=== PATIENT | female | born 1970 | race Caucasian/White ===

== ENCOUNTER → 2020-05-28 10:14 | Outpatient (CLI) | payer OTHER, SELFPAY ==
--- NOTE | ~2020-05-28 | MM_ITS ---
EXAMINATION: MM screening pablo BI w edgardo HISTORY: Screening TECHNIQUE: Craniocaudal and mediolateral oblique 3-D tomosynthesis images were obtained and synthetic 2-D images were generated. CAD analysis was submitted and interpreted. COMPARISON: No prior mammogram is available for comparison at this institution. BREAST PARENCHYMAL COMPOSITION: The breasts are heterogenously dense, which may obscure small masses FINDINGS: There is no evidence of suspicious mass, calcification, or architectural distortion to sugg est malignancy in either breast. There has been no suspicious interval change. IMPRESSION: 1. No mammographic evidence of malignancy. 2. Recommend routine screening mammography in one year. BI-RADS Category 1: Negative Reviewed, dictated and finalized at location A.
== END ==
PROVIDERS: Visit Provider Obstetrics & Gynecology
DX: Z12.31 Encounter for screening mammogram for malignant neoplasm of breast (principal)
CPT/HCPCS: 77063; 77067

== ENCOUNTER → 2021-06-03 15:17 | Outpatient (CLI) | payer OTHER, SELFPAY ==
--- NOTE | ~2021-06-03 | MR_ITS ---
EXAMINATION: MR lumbar spine wo con DATE: 06/03/2021 16:05 INDICATION: Low back pain. Bilateral leg tingling and numbness. TECHNIQUE: Magnetic resonance imaging (MRI) of the lumbar spine was performed without intravenous con trast. Sequences included sagittal T2-weighted FSE, sagittal T2-weighted FS FSE, sagittal T1-weighted FSE, and axial T2-weighted FSE. COMPARISON: Thoracic spine MRI 05/05/2017 FINDINGS: There is 11 degrees levoscoliosis of lumbar spine. S1 is a transitional segment. Vertebral body heights are normal. There is mildly decreased disc height at L3-L4 and moderately decreased disc height at L4-L5 and L5-S1. The distal spinal cord signal intensity is normal. The conus medullaris i s at L2. The following disc levels are specifically discussed: L1-L2: The disc does not extend beyond the endplate margin. There is mild bilateral facet joint osteo arthritis. There is no neural foraminal stenosis. There is no central canal stenosis. L2-L3: The disc does not extend beyond the endplate margin. There is mild bilateral facet joint osteo arthritis. There is no neural foraminal stenosis. There is no central canal stenosis. L3-L4: The disc is bulging. There is mild bilateral facet joint osteoarthritis. There is mild right n eural foraminal stenosis. There is mild central canal stenosis. L4-L5: The disc is bulging with superimposed central extrusion. There is mild right facet joint osteo arthritis. There is mild bilateral neural foraminal stenosis. There is mild central canal stenosis. L5-S1: The disc is bulging and has an annular fissure. There is mild right and moderate left facet susana int osteoarthritis. There is mild right neural foraminal stenosis. There is mild central canal stenos is. IMPRESSION: 1. Moderate lumbar spondylosis. Reviewed, dictated and finalized at location A.
== END ==
PROVIDERS: PCP Family Medicine; Visit Provider Chiropractor
DX: M47.896 Other spondylosis, lumbar region (principal)
CPT/HCPCS: 72148

== ENCOUNTER → 2021-06-06 15:14 | Outpatient (CLI) | payer OTHER, SELFPAY ==
--- NOTE | ~2021-06-06 | MM_ITS ---
EXAMINATION: MM screening pablo BI w edgardo HISTORY: Screening TECHNIQUE: Craniocaudal and mediolateral oblique 3-D tomosynthesis images were obtained and synthetic 2-D images were generated. CAD analysis was submitted and interpreted. COMPARISON: Comparison to multiple prior studies sequentially, with oldest reviewed study dated 06/2012. BREAST PARENCHYMAL COMPOSITION: The breasts are heterogeneously dense, which may obscure small masses .. FINDINGS: There are developing asymmetries centrally in the left breast on CC view the right breast i s stable without evidence for malignancy. IMPRESSION: 1. Focal asymmetries central aspect of the left breast on CC view. 2. Additional mammographic views and possible breast ultrasound are recommended. BI-RADS Category 0: Incomplete: Needs additional imaging evaluation. Reviewed, dictated and finalized at location A. IMPRESSION: 1. Focal asymmetries central aspect of the left breast on CC view. 2. Additional mammographic views and possible breast ultrasound are recommended . BI-RADS Category 0: Incomplete: Needs additional imaging evaluation.
== END ==
PROVIDERS: Visit Provider Physician Assistant
DX: Z12.31 Encounter for screening mammogram for malignant neoplasm of breast (principal); R92.8 Other abnormal and inconclusive findings on diagnostic imaging of breast
CPT/HCPCS: 77063; 77067

== ENCOUNTER → 2021-07-07 08:18 | Outpatient (CLI) | payer OTHER, SELFPAY ==
--- NOTE | ~2021-07-07 | MMUS_ITS ---
EXAMINATION: MM diagnostic pablo LT w edgardo, US breast LT complete HISTORY: Follow-up left breast asymmetries TECHNIQUE: Additional 3-D tomosynthesis images of the left breast were performed and synthetic 2-D im ages were generated. CAD analysis was submitted and interpreted. High resolution left breast ultrasou nd was performed. COMPARISON: Comparison to multiple prior studies sequentially, with oldest reviewed study dated 06/2012. BREAST PARENCHYMAL COMPOSITION: The breasts are heterogenously dense, which may obscure small masses. FINDINGS: MAMMOGRAPHIC FINDINGS: There are no discrete masses, calcifications or architectural distortion in the left breast to sugges t malignancy. ULTRASOUND: Complete left breast ultrasound: Near the areola there is a 5 mm cyst. Otherwise, no discrete solid o r cystic masses are seen. IMPRESSION: 1. No evidence for malignancy in the left breast. 2. Routine yearly screening mammogram and regular clinical breast examination are recommended. BI-RADS Category 2: Benign finding(s). Reviewed, dictated and finalized at location A. IMPRESSION: 1. No evidence for malignancy in the left breast. 2. Routine yearly screening mammogram and regular clinical breast examination a re recommended. BI-RADS Category 2: Benign finding(s).
== END ==
PROVIDERS: Visit Provider Physician Assistant
DX: R92.8 Other abnormal and inconclusive findings on diagnostic imaging of breast (principal)
CPT/HCPCS: 76641; 77061; 77065; G0279

== ENCOUNTER → 2021-07-15 15:28 | Outpatient (CLI) | payer OTHER, SELFPAY ==
--- NOTE | ~2021-07-15 | XR_ITS ---
EXAMINATION: XR foot LT standing 2V, XR foot RT standing 2V DATE: 07/15/2021 16:03 INDICATION: Pain, numbness and tingling at the bilateral feet. TECHNIQUE: 1. Standing dorsal plantar and lateral views of the left foot were obtained. 2. Standing dorsal plantar and lateral views of the right foot were obtained. COMPARISON: None. FINDINGS: Normal alignment at the bilateral feet. No fractures. Moderate osteoarthritis at the left first metat arsophalangeal joint. Minimal to mild osteoarthritis at the right first metatarsophalangeal joint and a few bilateral tarsometatarsal and interphalangeal joints. No cortical erosions or periosteal react ion. Small bilateral plantar calcaneal spurs. Soft tissues are unremarkable. IMPRESSION: 1. 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 Reviewed, dictated and finalized at location A. IMPRESSION: 1. 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
== END ==
PROVIDERS: PCP Family Medicine; Visit Provider Family Medicine
DX: R20.0 Anesthesia of skin (principal); M19.072 Primary osteoarthritis, left ankle and foot; M19.071 Primary osteoarthritis, right ankle and foot
CPT/HCPCS: 73620

== ENCOUNTER 2021-07-31 08:55 | Outpatient (CLI) | payer OTHER, SELFPAY ==
--- NOTE | 2021-07-31 12:00 | NEURO_ITS ---
Impression: # Complains of numbness of lower extremities. # Normal nerve conduction study. # No Tarsal Tunnel Syndrome. # Normal needle/EMG exam. Nerve Conduction Studies Anti Sensory Summary Table Stim Site NR Peak (ms) P-T Amp (?V) Site1 Site2 Delta-P (ms) Dist (cm) Rainer (m/s) Left Sup Fibular Anti Sensory (Ant Lat Mall) 14 cm 3.7 34.4 14 cm Ant Lat Mall 3.7 16.0 43 Right Sup Fibular Anti Sensory (Ant Lat Mall) 14 cm 3.4 31.8 14 cm Ant Lat Mall 3.4 16.0 47 Left Sural Anti Sensory (Lat Mall) Calf 3.8 28.9 Calf Lat Mall 3.8 16.0 42 Right Sural Anti Sensory (Lat Mall) Calf 4.2 8.2 Calf Lat Mall 4.2 16.0 38 Motor Summary Table Stim Site NR Onset (ms) O-P Amp (mV) Site1 Site2 Delta-0 (ms) Dist (cm) Rainer (m/s) Left Lateral Planter Motor 4.8 Right Lateral Planter Motor 5.2 Left Peroneal Motor (Vastus Med) Ankle 5.5 1.0 Popit Ankle 8.6 39.0 45 Popit 14.1 0.8 Right Peroneal Motor (Vastus Med) Ankle 5.1 4.3 Popit Ankle 8.2 38.0 46 Popit 13.3 3.9 Left Tibial Motor (Abd Lozoya Brev) Ankle 5.2 2.3 Knee Ankle 8.6 42.0 49 Knee 13.8 2.2 Right Tibial Motor (Abd Lozoya Brev) Ankle 5.2 9.5 Knee Ankle 9.5 41.0 43 Knee 14.7 8.2 F Wave Studies NR F-Lat (ms) L-R F-Lat (ms) Left Peroneal (Mrkrs) (EDB) 49.34 0.12 Right Peroneal (Mrkrs) (EDB) 49.22 0.12 Left Tibial (Mrkrs) (Abd Hallucis) 52.16 1.01 Right Tibial (Mrkrs) (Abd Hallucis) 53.17 1.01 EMG Side Muscle Nerve Root Ins Act Fibs Amp Dur Recrt Comment Right AntTibialis Dp Br Fibular L4-5 Nml Nml Nml Nml Nml Right Gastroc Tibial S1-2 Nml Nml Nml Nml Nml Right Fibularis Long Sup Br Fibular L5-S1 Nml Nml Nml Nml Nml Right Flex Dig Long Tibial L5-S2 Nml Nml Nml Nml Nml Right Ext Dig Brev Dp Br Fibular L5, S1 Nml Nml Nml Nml Nml Left AntTibialis Dp Br Fibular L4-5 Nml Nml Nml Nml Nml Left Gastroc Tibial S1-2 Nml Nml Nml Nml Nml Left Fibularis Long Sup Br Fibular L5-S1 Nml Nml Nml Nml Nml Left Flex Dig Long Tibial L5-S2 Nml Nml Nml Nml Nml Left Ext Dig Brev Dp Br Fibular L5, S1 Nml Nml Nml Nml Nml Left AbdHallucis MedPlantar S1-2 Nml Nml Nml Nml Nml Right AbdHallucis MedPlantar S1-2 Nml Nml Nml Nml Nml MTDD
== END 2021-07-31 08:56 | disposition home or self-care (01) ==
PROVIDERS: PCP Family Medicine; Visit Provider Family Medicine
DX: M43.06 Spondylolysis, lumbar region (principal); M54.16 Radiculopathy, lumbar region
CPT/HCPCS: 95886; 95910

== ENCOUNTER → 2022-01-20 13:01 | Outpatient (CLI) | payer OTHER, SELFPAY ==
--- NOTE | ~2022-01-20 | XR_ITS ---
XR cervical spine 4-5V DATE: 01/20/2022 13:57 INDICATION: Cervical spine stenosis TECHNIQUE: AP, open-mouth, lateral views. Flexion and extension lateral views. COMPARISON: 05/05/2017 MR cervical spine 01/04/2017 cervical spine FINDINGS: There is straightening of the cervical spine and reversal of cervical curvature.. There is approximately 1.7 mm anterolisthesis at C3-4 in neutral and flexion, newly reduced in extens ion. Mild degenerative disc disease at C3-4. Moderately severe degenerative disc disease at C4-5 and C6-7. Severe degenerative disc disease at C5-6.. There is degenerative change at the apophyseal joints of the cervical spine. Uncovertebral joint spur ring is noted in the mid and lower cervical spine, particularly at C5-6 and C6-7. C1 and C2 are normally aligned and the odontoid process is intact. No fracture or dislocation or lock ed facet. IMPRESSION: Chronic approximately 1.7 mm anterolisthesis at C3-4 Chronic reversal cervical curvature Multilevel degenerative disc disease, increased in severity since 01/04/2017 Degenerative change at the apophyseal joints throughout the cervical spine and the mid and lower cerv ical uncovertebral joints Reviewed, dictated and finalized at location A. IMPRESSION: Chronic approximately 1.7 mm anterolisthesis at C3-4 Chronic reversal cervical curvature Multilevel degenerative disc disease, increased in severity since 01/04/2017 Degenerative change at the apophyseal joints throughout the cervical spine and the mid and lower cervical uncovertebral joints
== END ==
PROVIDERS: PCP Physician Assistant
DX: M48.02 Spinal stenosis, cervical region (principal); M50.30 Other cervical disc degeneration, unspecified cervical region
CPT/HCPCS: 72050

== ENCOUNTER → 2022-12-04 15:25 | Outpatient (CLI) | payer OTHER, SELFPAY ==
--- NOTE | ~2022-12-04 | MM_ITS ---
EXAMINATION: MM screening pablo BI w edgardo HISTORY: Screening mammogram TECHNIQUE: Craniocaudal and mediolateral oblique 3-D tomosynthesis images were obtained and synthetic 2-D images were generated. Bilateral rotated lateral CC views. CAD analysis was submitted and interp reted. COMPARISON: 07/07/2021 diagnostic left mammogram and complete left breast ultrasound examination 06/06/2021, 05/2020 bilateral screening mammogram examinations BREAST PARENCHYMAL COMPOSITION: The breasts are extremely dense, which lowers the sensitivity of mamm ography. FINDINGS: There is no evidence of suspicious mass, calcification, or architectural distortion to sugg est malignancy in either breast. There has been no suspicious interval change. IMPRESSION: 1. No mammographic evidence of malignancy. 2. Recommend routine screening mammography in one year. BI-RADS Category 1: Negative Reviewed, dictated and finalized at location A. S
== END ==
PROVIDERS: PCP Physician Assistant; Visit Provider Physician Assistant
DX: Z12.31 Encounter for screening mammogram for malignant neoplasm of breast (principal)
CPT/HCPCS: 77063; 77067

== ENCOUNTER → 2023-01-04 11:25 | Outpatient (CLI) | payer OTHER, SELFPAY ==
--- NOTE | ~2023-01-04 | XR_ITS ---
XR chest 2V DATE: 01/04/2023 12:08 INDICATION: Cough, new onset wheezing. Nonsmoker. TECHNIQUE: PA and lateral views COMPARISON: 10/12/2019 PA and lateral chest FINDINGS: Normal heart size. No hilar or mediastinal enlargement. No pulmonary infiltrate or consolid ation, pleural effusion or pulmonary vascular congestion or pneumothorax. IMPRESSION: No active cardiopulmonary disease Reviewed, dictated and finalized at location A.
== END ==
PROVIDERS: PCP Physician Assistant
DX: R05.9 Cough, unspecified (principal)
CPT/HCPCS: 71046

== ENCOUNTER → 2023-12-06 15:41 | Outpatient (CLI) | payer OTHER, SELFPAY ==
--- NOTE | ~2023-12-06 | MM_ITS ---
EXAMINATION: MM screening [facility] BI w edgardo HISTORY: Screening mammogram TECHNIQUE: Craniocaudal and mediolateral oblique 3-D tomosynthesis images were obtained and synthetic 2-D images were generated. CAD analysis was submitted and interpreted. COMPARISON: 12/04/2022, 07/07/2021, 06/06/2021, 05/28/2020 BREAST PARENCHYMAL COMPOSITION: The breasts are extremely dense, which lowers the sensitivity of mamm ography. FINDINGS: No suspicious mass, calcification, or architectural distortion are identified in either laxmi ast to suggest malignancy. There has been no suspicious interval change. IMPRESSION: 1. No mammographic evidence of malignancy. 2. Recommend routine screening mammography in one year. BI-RADS Category 1: Negative Reviewed, dictated and finalized at location A. MANAGEMENT DIRECTOR
== END ==
PROVIDERS: PCP Physician Assistant; Visit Provider Physician Assistant
DX: Z12.31 Encounter for screening mammogram for malignant neoplasm of breast (principal)
CPT/HCPCS: 77063; 77067

== ENCOUNTER 2024-02-28 07:01 | Outpatient (CLI) | payer OTHER, SELFPAY ==
--- NOTE | ~2024-02-28 | MR_ITS ---
EXAMINATION: MR chest wo con DATE: 02/28/2024 07:48 INDICATION: Sternal pain. Chronic costochondritis. TECHNIQUE: Magnetic resonance imaging (MRI) of the chest was performed without intravenous contrast. COMPARISON: Chest 2 views 01/04/2023 FINDINGS: Bone alignment is normal. No fracture. The sternum is normal. The sternoclavicular joints a re normal. There is no inflammation in the area of the costochondral cartilage. IMPRESSION: 1. No etiology for the patient's symptoms. Reviewed, dictated and finalized at location A.
== END 2024-02-28 07:02 ==
LOC: MICIMG 07:02
PROVIDERS: PCP Chiropractor; Visit Provider Chiropractor
DX: M94.0 Chondrocostal junction syndrome [Tietze] (principal)
CPT/HCPCS: 71550

== ENCOUNTER 2024-07-04 13:46 | Outpatient (CLI) | payer OTHER, SELFPAY ==
--- NOTE | ~2024-07-04 | MR_ITS ---
EXAMINATION: MR foot LT wo con DATE: 07/04/2024 14:44 INDICATION: Left first metatarsal sesamoiditis with chronic plantar foot pain at the base of the grea t toe TECHNIQUE: Magnetic resonance imaging (MRI) of the left fore/mid foot was performed without intraveno us contrast. Sequences included sagittal T1-weighted FSE, sagittal fluid sensitive FSE STIR, coronal PD-weighted FS FSE, coronal T1-weighted FSE, axial PD-weighted FS FSE, and axial PD-weighted FSE. COMPARISON: Radiograph dated 07/15/2021 FINDINGS: Bone alignment is normal. No fracture or pathologic marrow replacing process. There is severe osteoar thritis at the first metatarsophalangeal joint with subarticular edema-like signal changes about the head of the first metatarsal and base of the first proximal phalanx. Mild osteoarthritis between the head of the first metatarsal and the underlying sesamoids with no abnormal marrow signal in the sesam oid bones to suggest sesamoiditis. There is additional mild osteoarthritis at several of the tarsal m etatarsal comment interphalangeal and remaining metatarsophalangeal joints. Physiologic amount fluid in the joint space. The visualized portions of the flexor and extensor tendons and intrinsic musculat ure of the foot are normal. Lisfranc ligament complex as well as the collateral ligament complex at t he metatarsophalangeal and interphalangeal joints are normal.. IMPRESSION: 1. Severe osteoarthritis at the left first metatarsophalangeal joint. Reviewed, dictated and finalized at location B.
== END 2024-07-04 13:47 | disposition home or self-care (01) ==
LOC: MICIMG 13:47
PROVIDERS: PCP Family Medicine; Visit Provider Podiatrist Foot & Ankle Surgery
DX: M19.072 Primary osteoarthritis, left ankle and foot (principal)
CPT/HCPCS: 73718

== ENCOUNTER 2024-10-09 15:20 | Emergency (ER) | payer OTHER, SELFPAY ==
[2024-10-09] VITALS (8 sets, daily range): BP systolic 85–148; BP diastolic 57–79; PULSE 116; RESP 16; TEMP 36.8; O2SAT 99–100
--- NOTE | ~2024-10-09 | XR_ITS ---
EXAMINATION: XR chest 2V DATE: 10/09/2024 16:57 INDICATION: Chest pain. TECHNIQUE: Frontal and lateral views of the chest were obtained. COMPARISON: Chest 2 views 01/04/2023 FINDINGS: There is mild scarring at the lung apices. No pleural effusion or pneumothorax. The heart s ize is normal. IMPRESSION: 1. Stable mild scarring at the lung apices. Reviewed, dictated and finalized at location A. PLATFORMS
--- NOTE | ~2024-10-09 | CT_ITS ---
EXAMINATION: CT abdomen pelvis w con DATE: 10/09/2024 18:23 INDICATION: Ascites. TECHNIQUE: Computed tomography (CT) of the abdomen and pelvis was performed with 100 mL Omnipaque 350 intravenous contrast. Automated exposure control and iterative reconstruction technique were employe d. The dose-length product was 474.69 mGy-cm. COMPARISON: None. FINDINGS: The visualized portions of the lung bases demonstrate mild atelectasis. No pleural effusion . The heart size is normal. No pericardial effusion. There is diffuse hepatic steatosis. The gallblad kirt is absent. The spleen, pancreas, adrenal glands, and right kidney are normal. There is a 4 mm cys t in left kidney. There are no dilated loops of bowel. The appendix is normal. There are no pathologi lyn enlarged lymph nodes. There is no free intraperitoneal fluid. There is moderate lumbar spondylo sis. IMPRESSION: 1. No ascites. 2. Diffuse hepatic steatosis. Reviewed, dictated and finalized at location A. VISITING
--- NOTE | 2024-10-09 15:32 | ECG_ITS ---
Test Date: 2024-10-09 15:46:14 Measurements Intervals [place] Rate: 110 P: 37 OK: 123 QRS: -44 QRSD: 92 T: 50 QT: 334 QTc: 452 Interpretive Statements SINUS TACHYCARDIA MARKED LEFT AXIS DEVIATION [QRS AXIS < -30] No previous ECG available for comparison Electronically Signed On 10-09-2024 21:22:44 SUPERVISOR PIGMENT MAKING by Rob Ghosh M.D.
[2024-10-09 16:00] LABS: Basophils Percent Auto 0.5 % (0.2-1.2); Eosinophils Absolute Auto 0.1 K/mm3 (0-0.3); Eosinophils Percent Auto 2.1 % (0-4.4); Hematocrit 42.7 % (37.0-47.0); Hemoglobin 14.9 g/dL (12.0-15.0); Immature Granulocyte Absolute 0.02 K/mm3 (0.00-0.031); Immature Granulocyte Percent A 0.3 % (0-0.5); Lymphocytes Absolute Auto 1.99 K/mm3 (0.9-3.2); Lymphocytes Percent Auto 30.2 % (18.3-44.2); Mean Corpuscular HGB Conc 34.9 g/dl (32-36); Mean Corpuscular Hemoglobin 32.5 pg (26-34); Mean Platelet Volume 9.6 fl (7.4-10.4); Monocytes Absolute Auto 0.5 K/mm3 (0.1-0.6); Monocytes Percent Auto 7.4 % (2.6-8.5); Neutrophils Absolute Auto 3.9 K/mm3 (1.3-6.7); Neutrophils Percent Auto 59.5 % (45.5-73.1); Platelet Count Result 250 k/mm3 (150-375); Red Blood Count 4.59 M/mm3 (4.2-5.4); Red Cell Distribution Width 12.4 % (11.5-14.5); White Blood Count 6.6 K/mm3 (4.5-10.0)
[2024-10-09 16:14] LABS: Alanine Aminotransferase 112 U/L (6-35); Albumin Level 5.2 g/dL (3.5-5.1); Alkaline Phosphatase 94 U/L (38-126); Anion Gap 7 mmol/L (4-12); Aspartate Amino Transferase 71 U/L (14-36); Bilirubin,Total 0.9 mg/dL (0.2-1.3); Blood Urea Nitrogen 11 mg/dL (7-17); Carbon Dioxide 32 mmol/L (22-30); Chloride 95 mmol/L (98-107); Estimated CRCL calculation 68 ml/min; Estimated Glomerular Filt Rate > 60; Glucose 110 mg/dL (65-110); Lipase 72 U/L (23-300); Potassium 3.5 mmol/L (3.4-5.0); Sodium 134 mmol/L (137-145)
[2024-10-09 16:24] LABS: INR 0.9; Prothrombin Time 12.5 Seconds (11.1-14.7)
[2024-10-09 16:25] LABS: Partial Thromboplastin Time 27.2 Seconds (22.3-36.8); Troponin I < 0.012 ng/mL (0.000-0.034)
--- NOTE | 2024-10-09 17:14 | ED_ITS ---
HPI - General Adult General Chief complaint: Weakness Stated complaint: WEAK,ABD SWELLING,CHEST BURNING Time Seen by Provider: 10/09/24 17:05 History of Present Illness HPI narrative: Pt presents with swelling and edema to abdomen and a small amount to feet and generalized weakness. Pt is not a drinker. Pt says has been dealing with elevated liver enzymes for years and sees GI for this. Pt denies abdominal pain now. slight transaminase elevation, ct shows no ascites some hepatic steatosis Related Data Home Medications ?Medication ?Instructions ?Recorded ?Confirmed ?Last Taken ?Type fluticasone propionate 50 1 spray intranasal DAILY 07/10/21 07/10/21 Unknown History mcg/actuation nasal spray,suspension (Flonase Allergy Relief) levocetirizine 5 mg tablet (Xyzal) 5 mg PO DAILY 07/10/21 07/10/21 Unknown History montelukast 10 mg tablet 10 mg PO DAILY 07/10/21 07/10/21 Unknown History (Singulair) Allergies Allergy/AdvReac Type Severity Reaction Status Date / Time Sulfa (Sulfonamide Allergy Intermediate RASH, Verified 10/09/24 15:22 Antibiotics) LIGHT HEADED, JOINT ACHES sulfamethoxazole Allergy Intermediate RASH, Verified 10/09/24 15:22 LIGHT HEADED, JOINT ACHES amoxicillin Allergy Unknown Rash Verified 10/09/24 15:22 Penicillins Allergy Unknown Rash Verified 10/09/24 15:22 sulfamethizole Allergy Unknown Rash Verified 10/09/24 15:22 sulfanilamide Allergy Unknown Rash Verified 10/09/24 15:22 trimethoprim Allergy Unknown Rash Verified 10/09/24 15:22 Review of Systems 2 Review of Systems: All systems reviewed & are unremarkable except as noted in HPI and below PMFSH Past Medical History Medical History (Updated 10/09/24 @ 18:43 by Kojo Beltran III, DO) Numbness and tingling of both feet Numbness and tingling Other spondylosis with radiculopathy, lumbar region Gastric polyp Screen for colon cancer Essential (primary) hypertension Dyspnea on exertion Family History Family History Father Hypertension Carcinoma of colon Social History Social History Smoking status: Never smoker Alcohol intake: current Exam 2 Const: General: healthy appearing and no acute distress Nutritional Appearance: well nourished Orientation/consciousness: patient oriented x3 Limitations: no limitations Eyes: Conjunctivae: conjunctivae normal EOM: EOMs intact bilaterally Resp: Effort & Inspection: normal respiratory effort Auscultation: clear to auscultation bilaterally Cardio: Rate: regular rate Rhythm: regular rhythm GI: Inspection: distended GI Palp: Yes Soft to palpation and No Tenderness to palpation present (GI) Auscultation: normal bowel sounds Back/Spine/Pelvis: Back: no CVA tenderness Skin: General skin exam: normal color Rashes: no rashes Wounds: no wounds Neuro: General: patient oriented x3, moves all extremities, no meningeal signs, no focal motor deficits and CN's II-XI intact bilaterally Cranial nerves: Yes Nystagmus not present Speech: normal speech Extrem: General: normal to inspection and no clubbing, cyanosis or edema Psych: Mental Status: mental status grossly normal Affect: normal affect Attitude: cooperative Course Vital Signs Vital signs: Vital Signs Temperature 98.2 F 10/09/24 15:29 Pulse Rate 116 H 10/09/24 15:29 Respiratory Rate 16 10/09/24 15:29 Blood Pressure 147/67 H 10/09/24 15:29 Pulse Oximetry 100 10/09/24 15:29 Oxygen Delivery Room Air 10/09/24 15:29 Temperature 98.2 F 10/09/24 15:29 Pulse Rate 116 H 10/09/24 15:29 Respiratory Rate 16 10/09/24 15:29 Blood Pressure 147/67 H 10/09/24 15:29 Pulse Oximetry 100 10/09/24 15:29 Oxygen Delivery Room Air 10/09/24 15:29 Medical Decision Making [facility] Narrative Medical decision making narrative: Pt presents with weakness and abdominal swelling without pain. will check labs and get CT abd/pelvis. small liver transaminase elvation labs unremarkable otherwise. Vital Signs Vital Signs: Vital Signs Temperature 98.2 F 10/09/24 15:29 Pulse Rate 116 H 10/09/24 15:29 Respiratory Rate 16 10/09/24 15:29 Blood Pressure 147/67 H 10/09/24 15:29 Pulse Oximetry 100 10/09/24 15:29 Oxygen Delivery Room Air 10/09/24 15:29 Temperature 98.2 F 10/09/24 15:29 Pulse Rate 116 H 10/09/24 15:29 Respiratory Rate 16 10/09/24 15:29 Blood Pressure 147/67 H 10/09/24 15:29 Pulse Oximetry 100 10/09/24 15:29 Oxygen Delivery Room Air 10/09/24 15:29 Lab Data 10/09/24 15:51 10/09/24 15:51 Labs: Lab Results 10/09/24 Range/Units 15:51 WBC 6.6 (4.5-10.0) K/mm3 RBC 4.59 (4.2-5.4) M/mm3 Hgb 14.9 (12.0-15.0) g/dL Hct 42.7 (37.0-47.0) % MCV 93.0 (80-100) fl MCH 32.5 (26-34) pg MCHC 34.9 (32-36) g/dl RDW 12.4 (11.5-14.5) % Plt Count 250 (150-375) k/mm3 MPV 9.6 (7.4-10.4) fl Immature Gran % (Auto) 0.3 (0-0.5) % Neut % (Auto) 59.5 (45.5-73.1) % Lymph % (Auto) 30.2 (18.3-44.2) % [place] % (Auto) 7.4 (2.6-8.5) % Eos % (Auto) 2.1 (0-4.4) % Baso % (Auto) 0.5 (0.2-1.2) % Lymph # (Auto) 1.99 (0.9-3.2) K/mm3 [place] # (Auto) 0.5 (0.1-0.6) K/mm3 Eos # (Auto) 0.1 (0-0.3) K/mm3 Baso # (Auto) 0.0 (0.0-0.1) K/mm3 Abs Immat Gran (auto) 0.02 (0.00-0.031) K/mm3 Absolute Neuts (auto) 3.9 (1.3-6.7) K/mm3 Absolute Nucleated RBC 0.000 (0.0-0.012) K/mm3 Nucleated RBC % 0.0 (0.0-0.2) % PT 12.5 (11.1-14.7) Seconds INR 0.9 APTT 27.2 (22.3-36.8) Seconds Sodium 134 L (137-145) mmol/L Potassium 3.5 (3.4-5.0) mmol/L Chloride 95 L (98-107) mmol/L Carbon Dioxide 32 H (22-30) mmol/L Anion Gap 7 (4-12) mmol/L BUN 11 (7-17) mg/dL Creatinine 0.80 (0.7-1.0) mg/dL Estim Creat Clear Calc 68 ml/min Estimated GFR > 60 (59 - ) Glucose 110 (65-110) mg/dL Calcium 10.0 (8.4-10.2) mg/dL Total Bilirubin 0.9 (0.2-1.3) mg/dL AST 71 H (14-36) U/L ALT 112 H (6-35) U/L Alkaline Phosphatase 94 (38-126) U/L Troponin I < 0.012 (0.000-0.034) ng/mL NT-Pro-B Natriuret Pep < 20 (19.9-100) pg/mL Total Protein 9.0 H (6.3-8.2) g/dL Albumin 5.2 H (3.5-5.1) g/dL Lipase 72 (23-300) U/L Discharge Plan Discharge Clinical Impression: Abdominal distension Patient Disposition: Home, Self-Care Condition: Stable Instructions: Antibiotic Form, Gas and Bloating (ED), Fatigue (ED) Patient Language: Danish Prescriptions: No Action levocetirizine [Xyzal] 5 mg tablet 5 mg PO DAILY montelukast [Singulair] 10 mg tablet 10 mg PO DAILY fluticasone propionate [Flonase Allergy Relief] 50 mcg/actuation spray,suspension 1 spray intranasal DAILY Rx Instructions: administer into each nostril cyclobenzaprine 10 mg tablet 10 mg PO TID PRN (Reason: muscle spasm) Qty: 60 0RF omeprazole 20 mg capsule,delayed release(DR/EC) 20 mg PO DAILY Qty: 90 1RF benazepril-hydrochlorothiazide 10-12.5 mg tablet See Rx Instructions .ROUTE .COMPLEX Qty: 90 3RF Dose Instruction: TAKE 1 TABLET DAILY Rx Instructions: TAKE 1 TABLET DAILY Follow-up/Referrals: Rich,MD Kylee [Primary Care Provider] -
[2024-10-09 17:21] LABS: NT Pro B Type Natriuretic Pept < 20 pg/mL (19.9-100)
== END 2024-10-09 19:15 | disposition home or self-care (01) ==
PROVIDERS: Emergency Provider Emergency Medicine; PCP Family Medicine
DX: R14.0 Abdominal distension (gaseous) (principal); I10 Essential (primary) hypertension; Z79.899 Other long term (current) drug therapy; R00.0 Tachycardia, unspecified
CPT/HCPCS: 36415; 71046; 74177; 80053; 83690; 83880; 84484; 85025; 85610; 85730; 93005; 99284; Q9967

== ENCOUNTER 2025-05-30 00:37 | Emergency (ER) | payer OTHER, SELFPAY ==
[2025-05-30 00:39] VITALS: BP 118/59; PULSE 68; RESP 16; TEMP 36.3; O2SAT 100
--- OUTSIDE RECORDS SUMMARY | 2025-05-30 00:39 | XMS_ITS | Encounter Summary ---
Author Organization [facility] Address [address] [place] [address] Care Team Providers Care Manager Urology Name Role Phone Alberto Avendano MD Unavailable [phone] Kylee Villanueva MD Primary Care Provider Encounter Details Date Type Department Care Team (Late st Contact Info) Description 12/09/2023 [employer] [place] Message Enc [facility] Medical Group Family & Internal Medicine [address] [address] [employer], [facility] Provider Mammogram result Social History Tobacco Use Types Packs/Day Years Used Date Smoking Tobacco: Never Smokeless Tobacco: Never Comments:NON SMOKER Alcohol Use Standard Drinks/Week Comments Yes 3.3 (1 standard drink = 0.6 oz p ure alcohol) AUDIT-C Answer Date Recorded Q1: How often do you have a drink containing alc ohol? Monthly or less 02/26/2021 Q2: How many drinks containi ng alcohol do you have on a typical day when you are drinking? 1 or 2 02/26/2021 Q3: How often do you have si x or more drinks on one occasion? Never 02/26/2021 PHQ-2 Answer Date Recorded Patient Health Questionnaire-2 Score 0 12/13/2023 Education Answer Date Recorded What is the highest level of school you have completed or the highest degree you have received? Bachelor's degree (e.g., BA, AB, BS) 05/06/2022 Comments No Sex and Gender Information Value Date Recorded Sex Assigned at Female 11/14/2024 2:54 PM MASTER PLANNER Legal Sex Female 11:06 AM CDT Gender Identity Female 05/11/2025 1:56 PM CDT Sexual Orientation Not on file documented as of this encounter Plan of Treatment Upcoming Encounters Date Type Department Care Team (Latest Contact Info) Description 06/07/2025 5:00 PM CDT Hospital Encounter [facility] Interventional [place] [address] [id number] Elizabeth Ryder MD Three [address] [address] 06/07/2025 5:00 PM CDT - 06/07/2025 5:20 PM CDT Surgery [facility] Interventional [place] [address] [id number] Elizabeth Ryder MD Three [address] [address] INJECTION TRIGGER POINT-cervivcal/th oracic 06/11/2025 2:40 PM CDT Office Visit [facility] Orthopedic & Sports Medicine - [place] [address] [place] [address] Reynaldo Bunch MD [address] [place] [address] 07/13/2025 9:00 AM CDT Hospital Encounter [facility] Interventional [place] [address] [id number] Elizabeth Ryder MD Three [address] [address] 07/13/2025 9:00 AM CDT - 07/13/2025 9:20 AM CDT Surgery [facility] Interventional [place] [address] [id number] Elizabeth Ryder MD Three [facility] [address] [place] [address] INJECTION EPIDURAL STEROID [id number] 07/13/2025 11:00 AM CDT Office Visit [facility] Multispecialty Care - [facility] [address] [facility] [place] [address] Esau Hoff MD 3 [facility] [place] [address] [place] [address] 09/13/2025 7:40 AM MASTER PLANNER Office Visit [facility] Medical [facility] Family & Internal Medicine [address] [address] Kylee Villanueva MD [address] [place] [address] [place] [address] Scheduled Procedures Name Priority Associated Diagnoses Date/Ti me INJECTION TRIGGER POINT Myofascial pain 06/07/2025 5:00 PM CDT INJECTION EPIDURAL STEROID CERVICAL Cervical radiculopathy 07/13/2025 9:00 AM CDT documented as of this encounter Visit Diagnoses Not on filedocumented in this encounter Additional Health Concerns Infection Onset Date Last Indicated Resolved Time COVID-19 Rule Out 12/13/2023 12/13/2023 12/13/2023 8:54 AM MASTER PLANNER COVID-19 Rule Out 08/30/2024 08/30/2024 08/30/2024 8:14 AM MASTER PLANNER COVID-19 Rule Out 11/03/2024 11/03/2024 11/03/2024 10:48 AM MASTER PLANNER documented as of this encounter Care Teams Manager Urology Relationship Specialty [place] [address] [address] [place] [address] PCP - General FAMILY PRACTICE 06/07/23 Alberto Avendano MD NEUROLOGICAL SURGERY 11/24/21 documented as of this encounter
--- OUTSIDE RECORDS SUMMARY | 2025-05-30 00:39 | XMS_ITS | Encounter Summary ---
Author Organization [facility] Address [address] [place] [address] Care Team Providers Care Signal Integrity Engineer Name Role Phone Viv Hamm Primary Care Provider [phone] Alberto Avendano MD Unavailable [phone] Kylee Villanueva MD Primary Care Provider [phone] Encounter Details Date Type Department Care Team (Late st Contact Info) Description 11/24/2021 MyChart Message Enc [facility] Medical [facility] Multispecialty Care - [facility] [address] [facility] [address] [place] [address] Shane Noble MD [address] [place] [address] Information Social History Tobacco Use Types Packs/Day Years Used Date Smoking Tobacco: Never Smokeless Tobacco: Never Alcohol Use Standard Drinks/Week Comments Yes 3.3 [...] occasion? Never 02/26/2021 PHQ-2 Answer Date Recorded PHQ-2 Score - If the patient scores above 3, please move on to questions 3-9 0 02/26/2021 Comments No Sex and Gender Information Value Date Recorded Sex Assigned at Female 11/14/2024 2:54 PM TECHNICAL EXPERT Legal Sex Female 11:06 AM CDT Gender Identity Female 05/11/2025 1:56 PM CDT Sexual Orientation Not on file COVID-19 Exposure Response Date Recorded In the last month, have you been in contact with someone who was confirmed or suspected to have Coronavirus / COVID-19? No / Unsure 11/10/2021 12:11 PM TECHNICAL EXPERT documented as of this encounter Plan of Treatment Upcoming Encounters Date Type Department Care Team (Latest Contact Info) Description 06/07/2025 5:00 PM CDT Hospital Encounter [facility] Interventional [place] [address] [id number] Elizabeth Ryder MD Three [address] [address] 06/07/2025 5:00 PM CDT - 06/07/2025 5:20 PM CDT Surgery [facility] [place] [address] [id number] Elizabeth Ryder MD Three [address] [address] INJECTION TRIGGER POINT-cervivcal/th oracic 06/11/2025 2:40 PM CDT Office Visit [facility] Medical Group Orthopedic & Sports Medicine - [place] [address] [place] [address] Reynaldo Bunch MD [address] [place] [address] 07/13/2025 9:00 AM CDT Hospital Encounter [facility] Interventional [place] [address] [id number] Elizabeth Ryder MD Three [facility] [address] [place] [address] 07/13/2025 9:00 AM CDT - 07/13/2025 9:20 AM CDT Surgery [facility] Interventional [place] [address] [id number] Elizabeth Ryder MD Three [facility] [address] [place] [address] INJECTION EPIDURAL STEROID [id number] 07/13/2025 11:00 AM CDT Office Visit [facility] Multispecialty Care - [facility] [address] [facility] [place] [address] Esau Hoff MD [address] [facility] [address] [place] [address] 09/13/2025 7:40 AM TECHNICAL EXPERT Office Visit [facility] Medical [facility] Family & Internal Medicine - [address] [address] Kylee Villanueva MD [address] [place] [address] [place] [address] Scheduled Procedures Name Priority Associated Diagnoses Date/Ti me INJECTION TRIGGER POINT Myofascial pain 06/07/2025 5:00 PM CDT INJECTION EPIDURAL STEROID CERVICAL Cervical radiculopathy 07/13/2025 9:00 AM CDT documented as of this encounter Visit Diagnoses Not on filedocumented in this encounter Additional Health Concerns Infection Onset Date Last Indicated Resolved Time COVID-19 Rule Out 12/13/2023 12/13/2023 12/13/2023 8:54 AM TECHNICAL EXPERT COVID-19 Rule Out 08/30/2024 08/30/2024 08/30/2024 8:14 AM TECHNICAL EXPERT COVID-19 Rule Out 11/03/2024 11/03/2024 11/03/2024 10:48 AM TECHNICAL EXPERT documented as of this encounter Care Teams Signal Integrity Engineer Relationship Specialty [place] [address] [place] [address] PCP - General PHYSICIAN COMMUNITY ENGAGEMENT REPRESENTATIVE 02/03/21 06/06/23 [place] [address] [address] [place] [address] PCP - General FAMILY PRACTICE 06/07/23 [place] [address] [place] [address] NEUROLOGICAL SURGERY 11/24/21 documented as of this encounter
--- OUTSIDE RECORDS SUMMARY | 2025-05-30 00:39 | XMS_ITS | Encounter Summary ---
Author Organization [facility] Address [facility] [place] [address] Care Team Providers Care Pressure Controller Name Role Phone Viv Hamm Primary Care Provider [phone] Alberto Avendano MD Unavailable [phone] Kylee Villanueva MD Primary Care Provider [phone] Encounter Details Date Type Department Care Team (Late st Contact Info) Description 12/02/2021 MyChart Message Enc [facility] Medical [facility] Multispecialty Care - [facility] [address] [facility] [address] [place] [address] Shane Noble MD [address] [place] [address] Medical Files Social History Tobacco Use Types Packs/Day Years [...] Sex Assigned at Female 11/14/2024 2:54 PM RADIO ARTIST Legal Sex Female 11:06 AM CDT Gender Identity Female 05/11/2025 1:56 PM CDT Sexual Orientation Not on file COVID-19 Exposure Response Date Recorded In the last month, have you been in contact with someone who was confirmed or suspected to have Coronavirus / COVID-19? No / Unsure 11/10/2021 12:11 PM RADIO ARTIST documented as of this encounter Plan of Treatment Upcoming Encounters Date Type Department Care Team (Latest Contact Info) Description 06/07/2025 5:00 PM CDT Hospital Encounter [facility] Interventional [place] [address] [id number] Elizabeth Ryder MD Three [address] [address] 06/07/2025 5:00 PM CDT - 06/07/2025 5:20 PM CDT Surgery [facility] [place] [address] [id number] Elizabeth Ryder MD Three [address] [address] INJECTION TRIGGER POINT-cervivcal/th oracic 06/11/2025 2:40 PM CDT Office Visit [facility] Medical Group Orthopedic & Sports Medicine - [place] [address] [place] [address] Reynaldo Bunch MD [address] [place] [address] 07/13/2025 9:00 AM CDT Hospital Encounter [facility] [place] [address] [id number] Elizabeth Ryder MD Three [facility] [address] [place] [address] 07/13/2025 9:00 AM CDT - 07/13/2025 9:20 AM CDT Surgery [facility] Interventional [place] [address] [id number] Elizabeth Ryder MD Three [facility] [address] [place] [address] INJECTION EPIDURAL STEROID [id number] 07/13/2025 11:00 AM CDT Office Visit [facility] Multispecialty Care - [facility] 3 [facility], [address] [place] [phone] Esau Hoff MD [address] [address] 09/13/2025 7:40 AM RADIO ARTIST Office Visit [facility] Medical [facility] Family & Internal Medicine - [address] [address] Kylee Villanueva MD [address] [place] [address] [place] [address] Scheduled Procedures Name Priority Associated Diagnoses Date/Ti me INJECTION TRIGGER POINT Myofascial pain 06/07/2025 5:00 PM CDT INJECTION EPIDURAL STEROID CERVICAL Cervical radiculopathy 07/13/2025 9:00 AM CDT documented as of this encounter Visit Diagnoses Not on filedocumented in this encounter Additional Health Concerns Infection Onset Date Last Indicated Resolved Time COVID-19 Rule Out 12/13/2023 12/13/2023 12/13/2023 8:54 AM RADIO ARTIST COVID-19 Rule Out 08/30/2024 08/30/2024 08/30/2024 8:14 AM RADIO ARTIST COVID-19 Rule Out 11/03/2024 11/03/2024 11/03/2024 10:48 AM RADIO ARTIST documented as of this encounter Care Teams Pressure Controller Relationship Specialty [place] [address] [place] [address] PCP - General PHYSICIAN CHIEF SCIENCE OFFICER 02/03/21 06/06/23 [place] [address] [address] [place] [address] PCP - General FAMILY PRACTICE 06/07/23 [place] [address] [place] [address] NEUROLOGICAL SURGERY 11/24/21 documented as of this encounter
--- OUTSIDE RECORDS SUMMARY | 2025-05-30 00:39 | XMS_ITS | Encounter Summary ---
Author Organization [facility] Address [address] [place] [address] Care Team Providers Care Tip Tester Name Role Phone Alberto Avendano MD Unavailable [phone] Kylee Villanueva MD Primary Care Provider [phone] Encounter Details Date Type Department Care Team (Late st Contact Info) Description 09/05/2023 Capsule Tech Message Enc [facility] Interventional [place] [address] [id number] Concha Albert NP 3 [facility] [address] [place] [address] [phone] (Work) Insurance appeal Social History Tobacco Use Types Packs/Day Years [...] Date Recorded Patient Health Questionnaire-2 Score 0 08/10/2023 Education Answer Date Recorded What is the highest level of school you have completed or the highest degree you have received? Bachelor's degree (e.g., BA, AB, BS) 05/06/2022 Comments No Sex and Gender Information Value Date Recorded Sex Assigned at Female 11/14/2024 2:54 PM CERTIFIED SCRUB TECH Legal Sex Female 11:06 AM CDT Gender Identity Female 05/11/2025 1:56 PM CDT Sexual Orientation Not on file documented as of this encounter Plan of Treatment Upcoming Encounters Date Type Department Care Team (Latest Contact Info) Description 06/07/2025 5:00 PM CDT Hospital Encounter [facility] Interventional [place] [address] [id number] Elizabeth Ryder MD [address] [address] 06/07/2025 5:00 PM CDT - 06/07/2025 5:20 PM CDT Surgery [facility] [place] [address] [id number] Elizabeth Ryder MD [address] [address] INJECTION TRIGGER POINT-cervivcal/th oracic 06/11/2025 2:40 PM CDT Office Visit [facility] Medical Group Orthopedic & Sports Medicine - [place] [address] [place] [address] Reynaldo Bunch MD [address] [place] [address] 07/13/2025 9:00 AM CDT Hospital Encounter [facility] [place] [address] [id number] Elizabeth Ryder MD [address] [address] 07/13/2025 9:00 AM CDT - 07/13/2025 9:20 AM CDT Surgery [facility] Interventional [facility] [place] [address] [id number] Elizabeth Ryder MD Three [facility] [address] [place] [address] INJECTION EPIDURAL STEROID [id number] 07/13/2025 11:00 AM CDT Office Visit [facility] Medical [facility] Multispecialty Care - [facility] 3 [facility] [address] [place] [address] Esau Hoff MD 3 [facility] [address] [place] [address] 09/13/2025 7:40 AM CERTIFIED SCRUB TECH Office Visit [facility] Medical Group Family & Internal Medicine - [address] [address] Kylee Villanueva MD [address] [place] [address] [phone] Scheduled Procedures Name Priority Associated Diagnoses Date/Ti me INJECTION TRIGGER POINT Myofascial pain 06/07/2025 5:00 PM CDT INJECTION EPIDURAL STEROID CERVICAL Cervical radiculopathy 07/13/2025 9:00 AM CDT documented as of this encounter Visit Diagnoses Not on filedocumented in this encounter Additional Health Concerns Infection Onset Date Last Indicated Resolved Time COVID-19 Rule Out 12/13/2023 12/13/2023 12/13/2023 8:54 AM CERTIFIED SCRUB TECH COVID-19 Rule Out 08/30/2024 08/30/2024 08/30/2024 8:14 AM CERTIFIED SCRUB TECH COVID-19 Rule Out 11/03/2024 11/03/2024 11/03/2024 10:48 AM CERTIFIED SCRUB TECH documented as of this encounter Care Teams Tip Tester Relationship Specialty Start [place] [address] [facility]. [address] [place], [place] [id number] PCP - General FAMILY PRACTICE 06/07/23 Alberto Avendano MD NEUROLOGICAL SURGERY 11/24/21 documented as of this encounter
--- OUTSIDE RECORDS SUMMARY | 2025-05-30 00:39 | XMS_ITS | Encounter Summary ---
Author Organization [facility] Healthcare Address [address] [place] [address] Care Team Providers Care Wooden Box Maker Name Role Phone Shane Noble MD Unavailable [phone] Kylee Villanueva MD Primary Care Provider [phone] eRynaldo Bunch MD Unavailable [phone] Encounter Details Date Type Department Care Team (Late st Contact Info) Description 01/18/2025 Hospital Encounter [facility] Operating Room [address] [place] [address] Feliz Miranda MD [address] [address] Social History Tobacco Use Types Packs/Day Years Used Date Smoking Tobacco: Never Passive Smoke Exposure: Past Smokeless Tobacco: Never AUDIT-C Answer Date Recorded Q1: How often do you have a drink containing alc ohol? 2-4 times a month 11/05/2022 Q2: How many drinks containi ng alcohol do you have on a typical day when you are drinking? 1 or 2 11/05/2022 Q3: How often do you have si x or more drinks on one occasion? 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 [address] [place] [address] PCP - General Family Medicine 07/12/23 Shane Noble MD [address] [address] Fellow Neurology 08/17/22 Reynaldo Bunch MD [address] [place] [address] Orthopedic Surgery 08/10/23 documented as of this encounter
--- OUTSIDE RECORDS SUMMARY | 2025-05-30 00:39 | XMS_ITS | Encounter Summary ---
Author Organization [facility] Address [facility] [place] [address] Care Team Providers Care Sales Receptionist Name Role Phone Viv Hamm Primary Care Provider [phone] Alberto Avendano MD Unavailable [phone] Kylee Villanueva MD Primary Care Provider [phone] Encounter Details Date Type Department Care Team (Late st Contact Info) Description 12/10/2021 USMDhart Message Enc [facility] Medical Group General Surgery [address], [address] [place] [address] Tracy Godoy MD [address] [address] [facility] [employer] System Social History Tobacco Use Types Packs/Day Years [...] Sex Assigned at Female 11/14/2024 2:54 PM MORTICIAN HELPER Legal Sex Female 11:06 AM CDT Gender Identity Female 05/11/2025 1:56 PM CDT Sexual Orientation Not on file COVID-19 Exposure Response Date Recorded In the last month, have you been in contact with someone who was confirmed or suspected to have Coronavirus / COVID-19? No / Unsure 11/10/2021 12:11 PM MORTICIAN HELPER documented as of this encounter Progress Notes * Artemio Novak MA - 12/10/2021 1:23 PM CST Sent message to the patient stating that Dr. Godoy doesn't know what that is. ICIAN HELPER documented in this encounter Plan of Treatment Upcoming Encounters Date Type Department Care Team (Latest Contact Info) Description 06/07/2025 5:00 PM CDT Hospital Encounter [facility] Interventional [place] [address] [id number] Elizabeth Ryder MD Three [facility] [address] [place] [address] 06/07/2025 5:00 PM CDT - 06/07/2025 5:20 PM CDT Surgery [facility] Interventional [place] [address] [id number] Elizabeth Ryder MD Three [facility] [address] [place] [address] INJECTION TRIGGER POINT-cervivcal/th oracic 06/11/2025 2:40 PM CDT Office Visit [facility] Medical Group Orthopedic & Sports Medicine - [place] [address] [place] [address] Reynaldo Bunch MD [facility] [place] [address] 07/13/2025 9:00 AM CDT Hospital Encounter [facility] Interventional Pain [place] [address] [id number] Elizabeth Ryder MD Three [facility] Suite [facility] [place] [address] 07/13/2025 9:00 AM CDT - 07/13/2025 9:20 AM CDT Surgery [facility] Interventional [place] [address] [id number] Elizabeth Ryder MD Three [facility] [address] [place] [address] INJECTION EPIDURAL STEROID [id number] 07/13/2025 11:00 AM CDT Office Visit [facility] Medical Group Multispecialty Care - [address], [address] [place] [address] Esau Hoff MD [address] [place] [address] [place] [address] 09/13/2025 7:40 AM MORTICIAN HELPER Office Visit [facility] Medical Group Family & Internal Medicine - [address] [address] Kylee Villanueva MD [address] [place] [address] [place] [address] [id number] Scheduled Procedures Name Priority Associated Diagnoses Date/Ti me INJECTION TRIGGER POINT Myofascial pain 06/07/2025 5:00 PM CDT INJECTION EPIDURAL STEROID CERVICAL Cervical radiculopathy 07/13/2025 9:00 AM CDT documented as of this encounter Visit Diagnoses Not on filedocumented in this encounter Additional Health Concerns Infection Onset Date Last Indicated Resolved Time COVID-19 Rule Out 12/13/2023 12/13/2023 12/13/2023 8:54 AM MORTICIAN HELPER COVID-19 Rule Out 08/30/2024 08/30/2024 08/30/2024 8:14 AM MORTICIAN HELPER COVID-19 Rule Out 11/03/2024 11/03/2024 11/03/2024 10:48 AM MORTICIAN HELPER documented as of this encounter Care Teams Sales Receptionist Relationship Specialty [place] [address] [place] [address] PCP - General PHYSICIAN BASKETBALL SCOUT 02/03/21 06/06/23 [place] [address] [facility] [address] PCP - General FAMILY PRACTICE 06/07/23 [place] [address] [place] [address] NEUROLOGICAL SURGERY 11/24/21 documented as of this encounter
--- OUTSIDE RECORDS SUMMARY | 2025-05-30 00:39 | XMS_ITS | Encounter Summary ---
Author Organization [facility] Address [address] [place] [address] Care Team Providers Care Radiology Specialist Name Role Phone Viv Hamm Primary Care Provider [phone] Alberto Avendano MD Unavailable [phone] Kylee Villanueva MD Primary Care Provider [phone] Encounter Details Date Type Department Care Team (Late st Contact Info) Description 01/09/2022 MyChart Message Enc [facility] Medical Group Family & Internal Medicine [facility] [address] [place] [address] [place] [id number] [place] [address] Appt Social History Tobacco Use Types Packs/Day Years [...] Sex Assigned at Female 11/14/2024 2:54 PM MANAGER FASHION Legal Sex Female 11:06 AM CDT Gender Identity Female 05/11/2025 1:56 PM CDT Sexual Orientation Not on file COVID-19 Exposure Response Date Recorded In the last 10 days, have yo u been in contact with someone who was confirmed or suspected to have Coronavirus/COVID-19? No / Unsure 01/10/2022 8:23 AM CDT documented as of this encounter Progress Notes * Anabell Vallecillo MA - 01/09/2022 8:17 AM CDT LMOM documented in this encounter Plan of Treatment Upcoming Encounters Date Type Department Care Team (Latest Contact Info) Description 06/07/2025 5:00 PM CDT Hospital Encounter [facility] Interventional [place] [address] [id number] Elizabeth Ryder MD Three [facility] [address] [place] [address] 06/07/2025 5:00 PM CDT - 06/07/2025 5:20 PM CDT Surgery [facility] Interventional [place] [address] [id number] Elizabeth Ryder MD Three [facility] [address] [place] [address] INJECTION TRIGGER POINT-cervivcal/th oracic 06/11/2025 2:40 PM CDT Office Visit [facility] Medical Group Orthopedic & Sports Medicine - [place] [address] [place] [address] Reynaldo Bunch MD [address] [place] [address] 07/13/2025 9:00 AM CDT Hospital Encounter [facility] Interventional [place] [address] [id number] Elizabeth Ryder MD Three [facility] [address] [place] [address] 07/13/2025 9:00 AM CDT - 07/13/2025 9:20 AM CDT Surgery [facility] Interventional Pain [place] [address] [id number] Elizabeth Ryder MD Three [facility] [address] [place] [address] INJECTION EPIDURAL STEROID [id number] 07/13/2025 11:00 AM CDT Office Visit [facility] Medical [facility] Multispecialty Care - [facility] 3 [facility], [address] [place] [address] Esau Hoff MD 3 [facility] [address] [place] [address] 09/13/2025 7:40 AM MANAGER FASHION Office Visit [facility] Medical Group Family & Internal Medicine - [address] [address] Kylee Villanueva MD [address] [place] [address] [place] [address] [phone] Scheduled Procedures Name Priority Associated Diagnoses Date/Ti me INJECTION TRIGGER POINT Myofascial pain 06/07/2025 5:00 PM CDT INJECTION EPIDURAL STEROID CERVICAL Cervical radiculopathy 07/13/2025 9:00 AM CDT documented as of this encounter Visit Diagnoses Not on filedocumented in this encounter Additional Health Concerns Infection Onset Date Last Indicated Resolved Time COVID-19 Rule Out 12/13/2023 12/13/2023 12/13/2023 8:54 AM MANAGER FASHION COVID-19 Rule Out 08/30/2024 08/30/2024 08/30/2024 8:14 AM MANAGER FASHION COVID-19 Rule Out 11/03/2024 11/03/2024 11/03/2024 10:48 AM MANAGER FASHION documented as of this encounter Care Teams Radiology Specialist Relationship Specialty [place] [address] [place] [address] PCP - General PHYSICIAN WALLPAPER SCRAPER 02/03/21 06/06/23 [place] [address] [address] [address] PCP - General FAMILY PRACTICE 06/07/23 [place] [address] [place] [place] [address] NEUROLOGICAL SURGERY 11/24/21 documented as of this encounter
--- OUTSIDE RECORDS SUMMARY | 2025-05-30 00:39 | XMS_ITS | Encounter Summary ---
Author Organization [facility] Address Replaced by [facility] [place] [address] Care Team Providers Care Rodent Exterminator Name Role Phone Viv Hamm Primary Care Provider [phone] Alberto Avendano MD Unavailable [phone] Kylee Villanueva MD Primary Care Provider [phone] Encounter Details Date Type Department Care Team (Latest Contact Info) Description 11/17/2021 MyChart Message Enc [facility] Medical Group Multispecialty Care - [facility] 3 [facility], [address] [place] [address] Shane Noble MD [address] [place] [address] Appt with Neurosurgeon Social History Tobacco Use Types Packs/Day Years [...] Sex Assigned at Female 11/14/2024 2:54 PM PROGRAM ADMIN Legal Sex Female 11:06 AM CDT Gender Identity Female 05/11/2025 1:56 PM CDT Sexual Orientation Not on file COVID-19 Exposure Response Date Recorded In the last month, have you been in contact with someone who was confirmed or suspected to have Coronavirus / COVID-19? No / Unsure 11/10/2021 12:11 PM PROGRAM ADMIN documented as of this encounter Plan of Treatment Upcoming Encounters Date Type Department Care Team (Latest Contact Info) Description 06/07/2025 5:00 PM CDT Hospital Encounter [facility] Interventional [place] [address] [id number] Elizabeth Ryder MD Three [address] [address] 06/07/2025 5:00 PM CDT - 06/07/2025 5:20 PM CDT Surgery [facility] Interventional [place] [address] [id number] Elizabeth Ryder MD Three [address] [address] INJECTION TRIGGER POINT-cervivcal/th oracic 06/11/2025 2:40 PM CDT Office Visit [facility] Medical Group Orthopedic & Sports Medicine - [place] [address] [place] [address] Reynaldo Bunch MD [address] [place] [address] 07/13/2025 9:00 AM CDT Hospital Encounter [facility] Interventional [place] [address] [id number] Elizabeth Ryder MD Three [facility] [address] [place] [address] 07/13/2025 9:00 AM CDT - 07/13/2025 9:20 AM CDT Surgery [facility] Interventional [place] [address] [id number] Elizabeth Ryder MD Three [facility] [address] [place] [address] INJECTION EPIDURAL STEROID [id number] 07/13/2025 11:00 AM CDT Office Visit [facility] Multispecialty Care - [facility] 3 [facility], [address] [place] [address] Esau Hoff MD 3 [facility] [address] [place] [address] 09/13/2025 7:40 AM PROGRAM ADMIN Office Visit [facility] Medical [facility] Family & Internal Medicine - [address] [address] Kylee Villanueva MD [address] [place] [address] [place] [address] Scheduled Procedures Name Priority Associated Diagnoses Date/Ti me INJECTION TRIGGER POINT Myofascial pain 06/07/2025 5:00 PM CDT INJECTION EPIDURAL STEROID CERVICAL Cervical radiculopathy 07/13/2025 9:00 AM CDT documented as of this encounter Visit Diagnoses Not on filedocumented in this encounter Additional Health Concerns Infection Onset Date Last Indicated Resolved Time COVID-19 Rule Out 12/13/2023 12/13/202312/13/2023 8:54 AM PROGRAM ADMIN COVID-19 Rule Out 08/30/2024 08/30/2024 08/30/2024 8:14 AM PROGRAM ADMIN COVID-19 Rule Out 11/03/2024 11/03/2024 11/03/2024 10:48 AM PROGRAM ADMIN documented as of this encounter Care Teams Rodent Exterminator Relationship Specialty [place] [address] [place] [address] PCP - General PHYSICIAN PULMONARY DISEASE SPECIALIST 02/03/21 06/06/23 [place] [address] [address] [place] [address] PCP - General FAMILY PRACTICE 06/07/23 [place] [address] [place] [address] NEUROLOGICAL SURGERY 11/24/21 documented as of this encounter
--- OUTSIDE RECORDS SUMMARY | 2025-05-30 00:39 | XMS_ITS | Encounter Summary ---
Author Organization [facility] Address [address] [place] [address] Phone Care Team Providers Care Forest Fire Prevention Specialist Name Role Phone Shane Noble MD Unavailable [phone] Kylee Villanueva MD Primary Care Provider [phone] Reynaldo Bunch MD Unavailable [phone] Reason for Visit * Reason Onset Date Comments LASHAY linn 2025 Encounter Details Date Type Department Care Team (Late st Contact Info) Description 2025 Telephone [facility] Pediatric Genetics [address] 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 [address] [place] [address] PCP - General Family Medicine 07/12/23 Shane Noble MD [address] [address] Fellow Neurology 08/17/22 Reynaldo Bunch MD 6[address] [facility] [place] [address] Orthopedic Surgery 08/10/23 documented as of this encounter
--- OUTSIDE RECORDS SUMMARY | 2025-05-30 00:39 | XMS_ITS | Encounter Summary ---
Author Organization [facility] Address [address] [place] [address] Care Team Providers Care Electrical Assembly Technician Name Role Phone Alberto Avendano MD Unavailable [phone] Elgin Villanueva MD Primary Care Provider [phone] Reason for Referral * Imaging (Routine) - Closed Specialty Diagnoses / Procedures Referred By Contac t Referred To Contact RADIOLOGY Diagnoses Numbness and tingling of leg Procedures MRI [place] [address] [place] [address] Phone: tel: fax: Referral ID Status Reason Start Date Expiration Date Visits Re quested Visits Authorized [id number] Closed 09/05/2023 03/18/2024 1 1 Encounter Details Date Type Department Care Team (Late st Contact Info) Description 08/25/2023 MyChart Message Enc [facility] Medical Group Family & Internal Medicine [address] [address] [place] [address] [address] [place] [address] Thoracic MRI Social History Tobacco Use Types Packs/Day Years [...] Sex Assigned at Female 11/14/2024 2:54 PM LEAN MANUFACTURING COORDINATOR Legal Sex Female 11:06 AM CDT Gender Identity Female 05/11/2025 1:56 PM CDT Sexual Orientation Not on file documented as of this encounter Progress Notes * Josselin Ortiz RN - 08/25/2023 11:22 AM CDT Please advise documented in this encounter Plan of Treatment Upcoming Encounters Date Type Department Care Team (Latest Contact Info) Description 06/07/2025 5:00 PM CDT Hospital Encounter [facility] Interventional [place] [address] [id number] Elizabeth Ryder MD Three [address] [address] 06/07/2025 5:00 PM CDT - 06/07/2025 5:20 PM CDT Surgery [facility] Interventional [place] [address] [id number] Elizabeth Ryder MD [address] [address] INJECTION TRIGGER POINT-cervivcal/th oracic 06/11/2025 2:40 PM CDT Office Visit [facility] Orthopedic & Sports Medicine - [place] [address] [place] [address] Reynaldo Bunch MD [address] [place] [address] 07/13/2025 9:00 AM CDT Hospital Encounter [facility] Interventional [place] [address] [id number] Elizabeth Ryder MD Three [facility] [address] [place] [address] 07/13/2025 9:00 AM CDT - 07/13/2025 9:20 AM CDT Surgery [facility] Interventional Pain [place] [address] [id number] Elizabeth Ryder MD Three [facility] [address] [place] [address] INJECTION EPIDURAL STEROID [id number] 07/13/2025 11:00 AM CDT Office Visit [facility] Multispecialty Care - [facility] [address] [facility] [address] [place] [address] Esau Hoff MD 3 [facility] [address] [place] [address] 09/13/2025 7:40 AM LEAN MANUFACTURING COORDINATOR Office Visit [facility] Family & Internal Medicine - [address] [place] [address] [place] [address] [facility] [place] [address] Scheduled Procedures Name Priority Associated Diagnoses Date/Ti me INJECTION TRIGGER POINT Myofascial pain 06/07/2025 5:00 PM CDT INJECTION EPIDURAL STEROID CERVICAL Cervical radiculopathy 07/13/2025 9:00 AM CDT documented as of this encounter Results * MRI THOR SPINE WO CON (10/19/2023 10:57 AM LEAN MANUFACTURING COORDINATOR) Anatomical Region Laterality Modality Spine Magnetic Resonan ce 10/20/2023 7:06 PM LEAN MANUFACTURING COORDINATOR Impressions 10/20/2023 7:09 PM LEAN MANUFACTURING COORDINATOR IMPRESSION: 1. Normal appearance of the thoracic spine. 2. Partially visualized moderate cervical spondylosis, better characterized on the prior MRI cervical spine examination from 02/24/2023. Mild partially visualized lumbar spondylosis, better characterized on the prior MRI lumbar spine examination from 03/13/2023 Ordered By: ELGIN VILLANUEVA Interpreted By: Lionel Costa MD, 10/20/2023 7:06 PM Narrative 10/20/2023 7:09 PM LEAN MANUFACTURING COORDINATOR Examination: MRI THOR SPINE WO CON, 10/20/2023 7:06 PM. Technique: Multiplanar multisequence magnetic resonance images of the thoracic spine were obtained without intravenous contrast Clinical history: Low back pain, bilateral leg pain and numbness Comparison: MRI thoracic spine 10/16/2021, CT chest 03/11/2023 MRI lumbar spine 03/13/2023, MRI cervical spine 02/24/2023 Findings: There are 12 rib-bearing thoracic type vertebral bodies. The thoracic vertebral bodies and facets are well aligned. The thoracic vertebral body heights are preserved. Localizer images demonstrate mild lumbar spondylosis and moderate cervical spondylosis, partially characterized the thoracic spinal cord has a normal signal throughout its course. Procedure Note Lionel Costa MD - 10/20/2023 Examination: MRI THOR SPINE WO CON, 10/20/2023 7:06 PM. Technique: Multiplanar multisequence magnetic resonance images of thethoracic spine were obtained without intravenous contrast Clinical history: Low back pain, bilateral leg pain and numbness Comparison: MRI thoracic spine 10/16/2021, CT chest 03/11/2023 MRI lumbarspine 03/13/2023, MRI cervical spine 02/24/2023 Findings: There are 12 rib-bearing thoracic type vertebral bodies. The thoracicvertebral bodies and facets are well aligned. The thoracic vertebral bodyheights are preserved. Localizer images demonstrate mild lumbarspondylosis and moderate cervical spondylosis, partially characterized thethoracic spinal cord has a normal signal throughout its course. IMPRESSION: 1. Normal appearance of the thoracic spine. 2. Partially visualized moderate cervical spondylosis, bettercharacterized on the prior MRI cervical spine examination from 02/24/2023.Mild partially visualized lumbar spondylosis, better characterized on theprior MRI lumbar spine examination from 03/13/2023 Ordered By: ELGIN VILLANUEVA Interpreted By: Lionel Costa MD, 10/20/2023 7:06 PM Elgin Villanueva MD MRI Final Result documented in this encounter Visit Diagnoses Diagnosis Numbness and tingling of leg- Primary Disturbance of skin sensation Numbness and tingling of leg Disturbance of skin sensation Myofascial pain Mylagia and myositis, unspecified Cervical radiculopathy Brachial neuritis or radiculitis nos documented in this encounter Additional Health Concerns Infection Onset Date Last Indicated Resolved Time COVID-19 Rule Out 12/13/2023 12/13/2023 12/13/2023 8:54 AM LEAN MANUFACTURING COORDINATOR COVID-19 Rule Out 08/30/2024 08/30/2024 08/30/2024 8:14 AM LEAN MANUFACTURING COORDINATOR COVID-19 Rule Out 11/03/2024 11/03/2024 11/03/2024 10:48 AM LEAN MANUFACTURING COORDINATOR documented as of this encounter Care Teams Electrical Assembly Technician Relationship Specialty Start [place] [address] [facility] [address] [place] [address] PCP - General FAMILY PRACTICE 06/07/23 Alberto Avendano MD NEUROLOGICAL SURGERY 11/24/21 documented as of this encounter
--- OUTSIDE RECORDS SUMMARY | 2025-05-30 00:39 | XMS_ITS | Encounter Summary ---
Author Organization [facility] Address [facility] [place] [address] Care Team Providers Care Fire Technician Name Role Phone Viv Hamm Primary Care Provider [phone] Alberto Avendano MD Unavailable [phone] Kylee Villanueva MD Primary Care Provider [phone] Encounter Details Date Type Department Care Team (Late st Contact Info) Description 12/22/2021 MyChart Message Enc [facility] Medical Group Multispecialty Care - [facility] [address] [facility] [address], [address] [place] [address] Shane Nobel MD [address] [place] [address] Appt Social History Tobacco Use Types Packs/Day [...] Sex Assigned at Female 11/14/2024 2:54 PM FRAMING AND HANGING Legal Sex Female 11:06 AM CDT Gender Identity Female 05/11/2025 1:56 PM CDT Sexual Orientation Not on file COVID-19 Exposure Response Date Recorded In the last 10 days, have yo u been in contact with someone who was confirmed or suspected to have Coronavirus/COVID-19? No / Unsure 12/22/2021 8:14 AM FRAMING AND HANGING documented as of this encounter Plan of Treatment Upcoming Encounters Date Type Department Care Team (Latest Contact Info) Description 06/07/2025 5:00 PM CDT Hospital Encounter [facility] Interventional Pain [place] [address] [id number] Elizabeth Ryder MD Three [facility] [address] [place] [address] 06/07/2025 5:00 PM CDT - 06/07/2025 5:20 PM CDT Surgery [facility] [place]ventional [place] [address] [id number] Elizabeth Ryder MD Three [address] [address] INJECTION TRIGGER POINT-cervivcal/th oracic 06/11/2025 2:40 PM CDT Office Visit [facility] Medical Group Orthopedic & Sports Medicine - [place] [address] [place] [address] Reynaldo Bunch MD [address] [place] [address] 07/13/2025 9:00 AM CDT Hospital Encounter [facility] [place] [address] [id number] Elizabeth Ryder MD Three [facility] [address] [place] [address] 07/13/2025 9:00 AM CDT - 07/13/2025 9:20 AM CDT Surgery [facility] Interventional [place] [address] [id number] Elizabeth Ryder MD Three [facility] [address] [place] [address] INJECTION EPIDURAL STEROID [id number] 07/13/2025 11:00 AM CDT Office Visit [facility] Multispecialty Care - [facility] 3 [facility] [address] [place] [address] Esau Hoff MD 3 [facility] [address] [place] [address] 09/13/2025 7:40 AM FRAMING AND HANGING Office Visit [facility] Medical [facility] Family & Internal Medicine - [address] [address] Kylee Villanueva MD [address] [place] [address] [place] [address] Scheduled Procedures Name Priority Associated Diagnoses Date/Ti me INJECTION TRIGGER POINT Myofascial pain 06/07/2025 5:00 PM CDT INJECTION EPIDURAL STEROID CERVICAL Cervical radiculopathy 07/13/2025 9:00 AM CDT documented as of this encounter Visit Diagnoses Not on filedocumented in this encounter Additional Health Concerns Infection Onset Date Last Indicated Resolved Time COVID-19 Rule Out 12/13/2023 12/13/2023 12/13/2023 8:54 AM FRAMING AND HANGING COVID-19 Rule Out 08/30/2024 08/30/2024 08/30/2024 8:14 AM FRAMING AND HANGING COVID-19 Rule Out 11/03/2024 11/03/2024 11/03/2024 10:48 AM FRAMING AND HANGING documented as of this encounter Care Teams Fire Technician Relationship Specialty [place] [address] [place] [address] PCP - General PHYSICIAN RN COMPLIANCE 02/03/21 06/06/23 [place] [address] [address] [place] [address] PCP - General FAMILY PRACTICE 06/07/23 [place] [address] [place] [address] NEUROLOGICAL SURGERY 11/24/21 documented as of this encounter
--- OUTSIDE RECORDS SUMMARY | 2025-05-30 00:40 | XMS_ITS | Encounter Summary ---
Author Organization [facility] Address [address] [place] [address] Care Team Providers Care Almond Sorter Name Role Phone Viv Hamm Primary Care Provider [phone] Alberto Avendano MD Unavailable [phone] Kylee Villanueva MD Primary Care Provider [phone] Encounter Details Date Type Department Care Team (Late st Contact Info) Description 04/21/2023 MyChart Message Enc [facility] Medical Group - [facility] [address] [place], [place] [phone] [employer], [facility] Provider Air Quality Message Social History Tobacco Use Types Packs/Day Years [...] Date Recorded Patient Health Questionnaire-2 Score 0 01/20/2023 Education Answer Date Recorded What is the highest level of school you have completed or the highest degree you have received? Bachelor's degree (e.g., BA, AB, BS) 05/06/2022 Comments No Sex and Gender Information Value Date Recorded Sex Assigned at Female 11/14/2024 2:54 PM PLUG MAKING OPERATOR Legal Sex Female 11:06 AM CDT Gender Identity Female 05/11/2025 1:56 PM CDT Sexual Orientation Not on file COVID-19 Exposure Response Date Recorded In the last 10 days, have yo u been in contact with someone who was confirmed or suspected to have Coronavirus/COVID-19? No / Unsure 03/23/2023 8:51 AM CDT documented as of this encounter Functional Status * Calculated C-SSRS Risk Score (Lifetime/Recent) Answer Date of Assessment Author Status No Risk Indicated 04/23/2023 11:43 AM CDT Elroy Knight RN Active * [place] Suicide Severity Rating Scale (Screener/Recent Self-Report) Question Answer Date of Assessment Author Status 1. Wish to be (Past 1 Month) No 04/23/2023 11:43 AM CDT Laila Knight RN Act martha 2. Non-Specific Active Suicidal Thoughts (Past 1 Month) No 04/23/2023 11:43 AM CDT Laila Knight RN Act martha 6. Suicidal Behavior (Lifetime) No 04/23/2023 11:43 AM CDT Laila Knight RN Act martha documented as of this encounter Plan of Treatment Upcoming Encounters Date Type Department Care Team (Latest Contact Info) Description 06/07/2025 5:00 PM CDT Hospital Encounter [facility] Interventional [place] [address] [id number] Elizabeth Ryder MD Three [address] [address] 06/07/2025 5:00 PM CDT - 06/07/2025 5:20 PM CDT Surgery [facility] Interventional [place] [address] [id number] Elizabeth Ryder MD [facility] [address] [place] [address] INJECTION TRIGGER POINT-cervivcal/th oracic 06/11/2025 2:40 PM CDT Office Visit [facility] Orthopedic & Sports Medicine - [place] [address] [place] [address] Reynaldo Bunch MD [address] [place] [address] 07/13/2025 9:00 AM CDT Hospital Encounter [facility] Interventional [place] [address] [id number] Elizabeth Ryder MD Three [facility] [address] [place] [address] 07/13/2025 9:00 AM CDT - 07/13/2025 9:20 AM CDT Surgery [facility] Interventional Pain Management [place] [address] [id number] Elizabeth Ryder MD Three [facility] [address] [place] [address] INJECTION EPIDURAL STEROID [id number] 07/13/2025 11:00 AM CDT Office Visit [facility] Multispecialty Care - [facility] 3 [facility], [address] [place] [address] Esau Hoff MD 3 [facility] [address] [place] [address] 09/13/2025 7:40 AM PLUG MAKING OPERATOR Office Visit [facility] Family & Internal Medicine - [address] [phone] [place] [address] [place] [address] Scheduled Procedures Name Priority Associated Diagnoses Date/Ti me INJECTION TRIGGER POINT Myofascial pain 06/07/2025 5:00 PM CDT INJECTION EPIDURAL STEROID CERVICAL Cervical radiculopathy 07/13/2025 9:00 AM CDT documented as of this encounter Visit Diagnoses Not on filedocumented in this encounter Additional Health Concerns Infection Onset Date Last Indicated Resolved Time COVID-19 Rule Out 12/13/2023 12/13/2023 12/13/2023 8:54 AM PLUG MAKING OPERATOR COVID-19 Rule Out 08/30/2024 08/30/2024 08/30/2024 8:14 AM PLUG MAKING OPERATOR COVID-19 Rule Out 11/03/2024 11/03/2024 11/03/2024 10:48 AM PLUG MAKING OPERATOR documented as of this encounter Care Teams Almond Sorter Relationship Specialty [place] [address] [address] [place] [address] PCP - General PHYSICIAN RFID ANALYST 02/03/21 06/06/23 [place] [address] [address] [place] [address] PCP - General FAMILY PRACTICE 06/07/23 [place] [address] [place] [address] NEUROLOGICAL SURGERY 11/24/21 documented as of this encounter
--- OUTSIDE RECORDS SUMMARY | 2025-05-30 00:40 | XMS_ITS | Encounter Summary ---
Author Organization [facility] Address [facility] [place] [address] Care Team Providers Care Greaser Operator Name Role Phone Viv Hamm Primary Care Provider [phone] Alberto Avendano MD Unavailable [phone] Kylee Villanueva MD Primary Care Provider [phone] Encounter Details Date Type Department Care Team (Late st Contact Info) Description 10/01/2021 [email or web address] Message Enc [facility] Medical Group Family & Internal Medicine [facility] [address] [place] [address] [place] [id number] [place] [address] Should I keep Neurologist Appointment Social History Tobacco Use Types Packs/Day Years [...] Sex Assigned at Female 11/14/2024 2:54 PM MAGNETIC TAPE TYPEWRITER OPERATOR Legal Sex Female 11:06 AM CDT Gender Identity Female 05/11/2025 1:56 PM CDT Sexual Orientation Not on file COVID-19 Exposure Response Date Recorded In the last month, have you been in contact with someone who was confirmed or suspected to have Coronavirus / COVID-19? No / Unsure 10/03/2021 7:12 AM MAGNETIC TAPE TYPEWRITER OPERATOR documented as of this encounter Plan of Treatment Upcoming Encounters Date Type Department Care Team (Latest Contact Info) Description 06/07/2025 5:00 PM CDT Hospital Encounter [facility] Interventional [place] [address] [id number] Elizabeth Ryder MD Three [address] [address] 06/07/2025 5:00 PM CDT - 06/07/2025 5:20 PM CDT Surgery [facility] Interventional [place] [address] [id number] Elizabeth Ryder MD Three [address] [address] INJECTION TRIGGER POINT-cervivcal/th oracic 06/11/2025 2:40 PM CDT Office Visit [facility] Medical Group Orthopedic & Sports Medicine - [place] [address] [place] [address] Reynaldo Bunch MD [address] [place] [address] 07/13/2025 9:00 AM CDT Hospital Encounter [facility] Interventional [place] [address] [id number] Elizabeth Ryder MD Three [facility] [address] [place] [address] 07/13/2025 9:00 AM CDT - 07/13/2025 9:20 AM CDT Surgery [facility] Interventional [place] [address] [id number] Elizabeth Ryder MD Three [facility] [address] [place] [address] INJECTION EPIDURAL STEROID [id number] 07/13/2025 11:00 AM CDT Office Visit [facility] Multispecialty Care - [facility] [address] [facility] [place] [address] Esau Hoff MD 3 [facility] [address] [place] [address] 09/13/2025 7:40 AM MAGNETIC TAPE TYPEWRITER OPERATOR Office Visit [facility] Medical [facility] Family & Internal Medicine - [address] [address] Kylee Villanueva MD [address] [place] [address] [place] [phone] Scheduled Procedures Name Priority Associated Diagnoses Date/Ti me INJECTION TRIGGER POINT Myofascial pain 06/07/2025 5:00 PM CDT INJECTION EPIDURAL STEROID CERVICAL Cervical radiculopathy 07/13/2025 9:00 AM CDT documented as of this encounter Visit Diagnoses Not on filedocumented in this encounter Additional Health Concerns Infection Onset Date Last Indicated Resolved Time COVID-19 Rule Out 12/13/2023 12/13/2023 12/13/2023 8:54 AM MAGNETIC TAPE TYPEWRITER OPERATOR COVID-19 Rule Out 08/30/2024 08/30/2024 08/30/2024 8:14 AM MAGNETIC TAPE TYPEWRITER OPERATOR COVID-19 Rule Out 11/03/2024 11/03/2024 11/03/2024 10:48 AM MAGNETIC TAPE TYPEWRITER OPERATOR documented as of this encounter Care Teams Greaser Operator Relationship Specialty [place] [address] [place] [address] PCP - General PHYSICIAN RISK MANAGER 02/03/21 06/06/23 [place] [address] [place] [address] PCP - General FAMILY PRACTICE 06/07/23 [place] [address] [place] [address] NEUROLOGICAL SURGERY 11/24/21 documented as of this encounter
--- OUTSIDE RECORDS SUMMARY | 2025-05-30 00:40 | XMS_ITS | Encounter Summary ---
Author Organization [facility] Address [address] [place] [address] Care Team Providers Care Global Process Owner Name Role Phone Viv Hamm Primary Care Provider [phone] Alberto Avendano MD Unavailable [phone] Kylee Villanueva MD Primary Care Provider [phone] Encounter Details Date Type Department Care Team (Late st Contact Info) Description 06/04/2023 [email or web address] Message Enc [facility] Interventional [place] [address] [id number] Concha Albert NP 3 [facility] [address] [place] [address] [phone] (Work) Imaging Request - Update Social History Tobacco Use Types Packs/Day Years [...] Sex Assigned at Female 11/14/2024 2:54 PM BIOLOGY TUTOR Legal Sex Female 11:06 AM CDT Gender Identity Female 05/11/2025 1:56 PM CDT Sexual Orientation Not on file documented as of this encounter Plan of Treatment Upcoming Encounters Date Type Department Care Team (Latest Contact Info) Description 06/07/2025 5:00 PM CDT Hospital Encounter [facility] Interventional [place] [address] [id number] Elizabeth Ryder MD Three [address] [address] 06/07/2025 5:00 PM CDT - 06/07/2025 5:20 PM CDT Surgery [facility] Interventional [place] [address] [id number] Elizabeth Ryder MD Three [address] [address] INJECTION TRIGGER POINT-cervivcal/th oracic 06/11/2025 2:40 PM CDT Office Visit [facility] Medical Group Orthopedic & Sports Medicine - [place] [address] [place] [address] Reynaldo Bunch MD [address] [place] [address] 07/13/2025 9:00 AM CDT Hospital Encounter [facility] Interventional [place] [address] [id number] Elizabeth Ryder MD Three [facility] [address] [place] [address] 07/13/2025 9:00 AM CDT - 07/13/2025 9:20 AM CDT Surgery [facility] Interventional [place] [address] [id number] Elizabeth Ryder MD Three [facility] [address] [place] [address] INJECTION EPIDURAL STEROID [id number] 07/13/2025 11:00 AM CDT Office Visit [facility] Multispecialty Care - [facility] 3 [facility] [address] [place] [address] Esau Hoff MD 3 [facility] [address] [place] [address] 09/13/2025 7:40 AM BIOLOGY TUTOR Office Visit [facility] Medical [facility] Family & Internal Medicine - [address] [address] Kylee Villanueva MD [address] [place] [address] [place] [address] [phone] Scheduled Procedures Name Priority Associated Diagnoses Date/Ti me INJECTION TRIGGER POINT Myofascial pain 06/07/2025 5:00 PM CDT INJECTION EPIDURAL STEROID CERVICAL Cervical radiculopathy 07/13/2025 9:00 AM CDT documented as of this encounter Visit Diagnoses Not on filedocumented in this encounter Additional Health Concerns Infection Onset Date Last Indicated Resolved Time COVID-19 Rule Out 12/13/2023 12/13/2023 12/13/2023 8:54 AM BIOLOGY TUTOR COVID-19 Rule Out 08/30/2024 08/30/2024 08/30/2024 8:14 AM BIOLOGY TUTOR COVID-19 Rule Out 11/03/2024 11/03/2024 11/03/2024 10:48 AM BIOLOGY TUTOR documented as of this encounter Care Teams Global Process Owner Relationship Specialty [place] [address] [place] [address] PCP - General PHYSICIAN KAIAWHINA KURA KAUPAPA MAORI 02/03/21 06/06/23 [place] [address] [place] [address] PCP - General FAMILY PRACTICE 06/07/23 [place] [address] [place] [address] NEUROLOGICAL SURGERY 11/24/21 documented as of this encounter
--- OUTSIDE RECORDS SUMMARY | 2025-05-30 00:40 | XMS_ITS | Encounter Summary ---
Author Organization [facility] Address [facility] [place] [address] Care Team Providers Care Buyer Liaison Name Role Phone Viv Hamm Primary Care Provider [phone] Alberto Avendano MD Unavailable [phone] Kylee Villanueva MD Primary Care Provider [phone] Encounter Details Date Type Department Care Team (Late st Contact Info) Description 06/04/2023 MyChart Message Enc [facility] Medical Group Family & Internal Medicine [facility] [address] [place] [address] Viv Hamm [place] [phone] [place] [address] Imaging Social History Tobacco Use Types Packs/Day Years [...] Sex Assigned at Female 11/14/2024 2:54 PM PRIMARY PRODUCTS INSPECTORS Legal Sex Female 11:06 AM CDT Gender Identity Female 05/11/2025 1:56 PM CDT Sexual Orientation Not on file documented as of this encounter Plan of Treatment Upcoming Encounters Date Type Department Care Team (Latest Contact Info) Description 06/07/2025 5:00 PM CDT Hospital Encounter [facility] Interventional [place] [address] [id number] Elizabeth Ryder MD [address] [address] 06/07/2025 5:00 PM CDT - 06/07/2025 5:20 PM CDT Surgery [facility] [place]ventional [place] [address] [id number] Elizabeth Ryder MD [address] [address] INJECTION TRIGGER POINT-cervivcal/th oracic 06/11/2025 2:40 PM CDT Office Visit [facility] Medical Group Orthopedic & Sports Medicine - [place] [address] [place] [address] Reynaldo Bunch MD [address] [place] [address] 07/13/2025 9:00 AM CDT Hospital Encounter [facility] [place] [address] [id number] Elizabeth Ryder MD [address] [place] [address] 07/13/2025 9:00 AM CDT - 07/13/2025 9:20 AM CDT Surgery [facility] Interventional Pain [place] [address] [id number] Elizabeth Ryder MD Three [facility] [address] [place] [address] INJECTION EPIDURAL STEROID [id number] 07/13/2025 11:00 AM CDT Office Visit [facility] Medical [facility] Multispecialty Care - [facility] 3 [facility] [address] [place] [phone] Esau Hoff MD 3 [facility] [address] [place] [address] 09/13/2025 7:40 AM PRIMARY PRODUCTS INSPECTORS Office Visit [facility] Medical [facility] Family & Internal Medicine - [address] [address] Kylee Villanueva MD [address] [place] [address] [phone] Scheduled Procedures Name Priority Associated Diagnoses Date/Ti me INJECTION TRIGGER POINT Myofascial pain 06/07/2025 5:00 PM CDT INJECTION EPIDURAL STEROID CERVICAL Cervical radiculopathy 07/13/2025 9:00 AM CDT documented as of this encounter Visit Diagnoses Not on filedocumented in this encounter Additional Health Concerns Infection Onset Date Last Indicated Resolved Time COVID-19 Rule Out 12/13/2023 12/13/2023 12/13/2023 8:54 AM PRIMARY PRODUCTS INSPECTORS COVID-19 Rule Out 08/30/2024 08/30/2024 08/30/2024 8:14 AM PRIMARY PRODUCTS INSPECTORS COVID-19 Rule Out 11/03/2024 11/03/2024 11/03/2024 10:48 AM PRIMARY PRODUCTS INSPECTORS documented as of this encounter Care Teams Buyer Liaison Relationship Specialty [place] [address] [place] [address] PCP - General PHYSICIAN CHANNEL OPENER OUTSOLES 02/03/21 06/06/23 [place] [address] [address] [place] [address] PCP - General FAMILY PRACTICE 06/07/23 [place] [address] [place] [address] NEUROLOGICAL SURGERY 11/24/21 documented as of this encounter
--- OUTSIDE RECORDS SUMMARY | 2025-05-30 00:40 | XMS_ITS | Encounter Summary ---
Author Organization [facility] Address [address] [place] [address] Care Team Providers Care Board Turner Name Role Phone Alberto Avendano MD Unavailable [phone] Kylee Villanueva MD Primary Care Provider [phone] Encounter Details Date Type Department Care Team (Late st Contact Info) Description 07/06/2023 27 bards Message Enc [facility] Interventional [place] [address] [id number] Concha Albert NP 3 [facility] [address] [place] [address] [phone] (Work) RFA Nerve Ablation Social History Tobacco Use Types Packs/Day Years [...] Sex Assigned at Female 11/14/2024 2:54 PM BOBBIN HANDLER Legal Sex Female 11:06 AM CDT Gender Identity Female 05/11/2025 1:56 PM CDT Sexual Orientation Not on file documented as of this encounter Plan of Treatment Upcoming Encounters Date Type Department Care Team (Latest Contact Info) Description 06/07/2025 5:00 PM CDT Hospital Encounter [facility] Interventional [place] [address] [id number] Elizabeth Ryder MD [address] [address] 06/07/2025 5:00 PM CDT - 06/07/2025 5:20 PM CDT Surgery [facility] [place] [address] [id number] Elizabeth Ryder MD [address] [address] INJECTION TRIGGER POINT-cervivcal/th oracic 06/11/2025 2:40 PM CDT Office Visit [facility] Medical Group Orthopedic & Sports Medicine - [place] [address] [place] [address] Reynaldo Bunch MD [address] [place] [address] 07/13/2025 9:00 AM CDT Hospital Encounter [facility] [place] [address] [id number] Elizabeth Ryder MD [address] [place] [address] 07/13/2025 9:00 AM CDT - 07/13/2025 9:20 AM CDT Surgery [facility] Interventional [place] [address] [id number] Elizabeth Ryder MD Three [facility] [address] [place] [address] INJECTION EPIDURAL STEROID [id number] 07/13/2025 11:00 AM CDT Office Visit [facility] Medical [facility] Multispecialty Care - [facility] 3 [facility] [address] [place] [address] Esau Hoff MD 3 [facility] [address] [place] [address] 09/13/2025 7:40 AM BOBBIN HANDLER Office Visit [facility] Medical [facility] Family & Internal Medicine - [address] [address] Kylee Villanueva MD [address] [place] [address] [phone] Scheduled Procedures Name Priority Associated Diagnoses Date/Ti me INJECTION TRIGGER POINT Myofascial pain 06/07/2025 5:00 PM CDT INJECTION EPIDURAL STEROID CERVICAL Cervical radiculopathy 07/13/2025 9:00 AM CDT documented as of this encounter Visit Diagnoses Not on filedocumented in this encounter Additional Health Concerns Infection Onset Date Last Indicated Resolved Time COVID-19 Rule Out 12/13/2023 12/13/2023 12/13/2023 8:54 AM BOBBIN HANDLER COVID-19 Rule Out 08/30/2024 08/30/2024 08/30/2024 8:14 AM BOBBIN HANDLER COVID-19 Rule Out 11/03/2024 11/03/2024 11/03/2024 10:48 AM BOBBIN HANDLER documented as of this encounter Care Teams Board Turner Relationship Specialty [place] [address] [facility] [address] [place] [address] PCP - General FAMILY PRACTICE 06/07/23 Alberto Avendano MD NEUROLOGICAL SURGERY 11/24/21 documented as of this encounter
--- OUTSIDE RECORDS SUMMARY | 2025-05-30 00:40 | XMS_ITS | Encounter Summary ---
Author Organization [facility] Address [facility] [place] [address] Care Team Providers Care Marble Cutter Operator Name Role Phone Viv Hamm Primary Care Provider [phone] Alberto Avendano MD Unavailable [phone] Kylee Villanueva MD Primary Care Provider [phone] Encounter Details Date Type Department Care Team (Latest Contact Info) Description 01/20/2023 MyChart Message Enc [facility] Medical Group Multispecialty Care - [facility] 3 [facility]., [address] [place] [address] Esau Hoff MD [facility] [address] [place] [address] Pulmonary Function Test Social History Tobacco Use Types Packs/Day Years [...] Sex Assigned at Female 11/14/2024 2:54 PM CHEESE GRADER Legal Sex Female 11:06 AM CDT Gender Identity Female 05/11/2025 1:56 PM CDT Sexual Orientation Not on file COVID-19 Exposure Response Date Recorded In the last 10 days, have yo u been in contact with someone who was confirmed or suspected to have Coronavirus/COVID-19? No / Unsure 01/20/2023 9:51 AM CDT documented as of this encounter Functional Status * Over the past 2 weeks, how often have you been bothered by any of the following problems? Question Answer Date of Assessment Author Status Little interest or pleasure in doing things Not at all 01/20/2023 10:02 AM LENORAT Anabell Brennan MA Active Feeling down, depressed, or hopeless Not at all 01/20/2023 10:02 AM CDT Esmer Brennan MA Active Patient Health Questionnaire-2 Score 0 01/20/2023 10:02 AM CDT Kusum Brennan MA Active documented as of this encounter Plan of Treatment Upcoming Encounters Date Type Department Care Team (Latest Contact Info) Description 06/07/2025 5:00 PM CDT Hospital Encounter [facility] Interventional [place] [address] [id number] Elizabeth Ryder MD Three [facility] [address] [place] [address] 06/07/2025 5:00 PM CDT - 06/07/2025 5:20 PM CDT Surgery [facility] Interventional [place] [address] [id number] Elizabeth Ryder MD Three [facility] [address] [place] [address] INJECTION TRIGGER POINT-cervivcal/th oracic 06/11/2025 2:40 PM CDT Office Visit [facility] Orthopedic & Sports Medicine - [place] [address] [place] [address] Reynaldo Bunch MD [address] [place] [address] 07/13/2025 9:00 AM CDT Hospital Encounter [facility] Interventional Pain Management [place] [address] [id number] Elizabeth Ryder MD Three [facility] [address] [place] [address] 07/13/2025 9:00 AM CDT - 07/13/2025 9:20 AM CDT Surgery [facility] Interventional Pain Management [place] [address] [id number] Elizabeth Ryder MD Three [facility] [address] [place] [address] INJECTION EPIDURAL STEROID [id number] 07/13/2025 11:00 AM CDT Office Visit [facility] Multispecialty Care - [facility] 3 [facility], [address] [place] [phone] Esau Hoff MD 3 [facility] [place] [address] 09/13/2025 7:40 AM CHEESE GRADER Office Visit [facility] Family & Internal Medicine [facility] [address] [place] [address] [place] [address] [facility]. [address] [place] [address] Scheduled Procedures Name Priority Associated Diagnoses Date/Ti me INJECTION TRIGGER POINT Myofascial pain 06/07/2025 5:00 PM CDT INJECTION EPIDURAL STEROID CERVICAL Cervical radiculopathy 07/13/2025 9:00 AM CDT documented as of this encounter Visit Diagnoses Not on filedocumented in this encounter Additional Health Concerns Infection Onset Date Last Indicated Resolved Time COVID-19 Rule Out 12/13/2023 12/13/2023 12/13/2023 8:54 AM CHEESE GRADER COVID-19 Rule Out 08/30/2024 08/30/2024 08/30/2024 8:14 AM CHEESE GRADER COVID-19 Rule Out 11/03/2024 11/03/2024 11/03/2024 10:48 AM CHEESE GRADER documented as of this encounter Care Teams Marble Cutter Operator Relationship Specialty [place] [address] [place] [address] PCP - General PHYSICIAN CELEBRITY MANAGER 02/03/21 06/06/23 [place] [address] [facility] [address] [address] PCP - General FAMILY PRACTICE 06/07/23 [place] [address] [place] [address] NEUROLOGICAL SURGERY 11/24/21 documented as of this encounter
--- OUTSIDE RECORDS SUMMARY | 2025-05-30 00:40 | XMS_ITS | Encounter Summary ---
Author Organization [facility] Address [address] [place] [address] Care Team Providers Care Director Of Assessing Name Role Phone Viv Hamm Primary Care Provider [phone] Alberto Avendano MD Unavailable [phone] Kylee Villanueva MD Primary Care Provider [phone] Encounter Details Date Type Department Care Team (Late st Contact Info) Description 04/08/2023 Domainex Message Enc [facility] Interventional [place] [address] [id number] Concha Albert NP 3 [facility] [address] [place] [address] [phone] (Work) Question about steroid injection or nerve ablation Social History Tobacco Use Types Packs/Day Years [...] Sex Assigned at Female 11/14/2024 2:54 PM ICE CARVER Legal Sex Female 11:06 AM CDT Gender Identity Female 05/11/2025 1:56 PM CDT Sexual Orientation Not on file COVID-19 Exposure Response Date Recorded In the last 10 days, have yo u been in contact with someone who was confirmed or suspected to have Coronavirus/COVID-19? No / Unsure 03/23/2023 8:51 AM CDT documented as of this encounter Plan of Treatment Upcoming Encounters Date Type Department Care Team (Latest Contact Info) Description 06/07/2025 5:00 PM CDT Hospital Encounter [facility] Interventional [place] [address] [id number] Elizabeth Ryder MD Three [facility] [address] [place] [address] 06/07/2025 5:00 PM CDT - 06/07/2025 5:20 PM CDT Surgery [facility] [place] [address] [id number] Elizabeth Ryder MD Three [facility] [address] [place] [address] INJECTION TRIGGER POINT-cervivcal/th oracic 06/11/2025 2:40 PM CDT Office Visit [facility] Medical Group Orthopedic & Sports Medicine - [place] [address] [place], [place] [address] Reynaldo Bunch MD [address] [place] [address] 07/13/2025 9:00 AM CDT Hospital Encounter [facility] Interventional Pain [place] [address] [id number] Elizabeth Ryder MD Three [facility] [address] [place] [address] 07/13/2025 9:00 AM CDT - 07/13/2025 9:20 AM CDT Surgery [facility] Interventional Pain [place] [address] [id number] Elizabeth Ryder MD Three [facility] [address] [place] [address] INJECTION EPIDURAL STEROID [id number] 07/13/2025 11:00 AM CDT Office Visit [facility] Multispecialty Care - [facility] 3 [facility], [address] [place] [address] Esau Hoff MD 3 [facility] [address] [place] [address] 09/13/2025 7:40 AM ICE CARVER Office Visit [facility] Medical Group Family & Internal Medicine - [address] [phone] Kylee Villanueva MD [address] [place] [address] [place] [phone] Scheduled Procedures Name Priority Associated Diagnoses Date/Ti me INJECTION TRIGGER POINT Myofascial pain 06/07/2025 5:00 PM CDT INJECTION EPIDURAL STEROID CERVICAL Cervical radiculopathy 07/13/2025 9:00 AM CDT documented as of this encounter Visit Diagnoses Not on filedocumented in this encounter Additional Health Concerns Infection Onset Date Last Indicated Resolved Time COVID-19 Rule Out 12/13/2023 12/13/2023 12/13/2023 8:54 AM ICE CARVER COVID-19 Rule Out 08/30/2024 08/30/2024 08/30/2024 8:14 AM ICE CARVER COVID-19 Rule Out 11/03/2024 11/03/2024 11/03/2024 10:48 AM ICE CARVER documented as of this encounter Care Teams Director Of Assessing Relationship Specialty [place] [address] [place] [address] PCP - General PHYSICIAN HOE RUNNER 02/03/21 06/06/23 [place] [address] [address] [place] [address] PCP - General FAMILY PRACTICE 06/07/23 [place] [address] [place] [address] NEUROLOGICAL SURGERY 11/24/21 documented as of this encounter
--- OUTSIDE RECORDS SUMMARY | 2025-05-30 00:40 | XMS_ITS | Encounter Summary ---
Author Organization [facility] Address [address] [place] [address] Care Team Providers Care Trading Specialist Name Role Phone Alberto Avendano MD Unavailable [phone] Kylee Villanueva MD Primary Care Provider [phone] Encounter Details Date Type Department Care Team (Late st Contact Info) Description 07/21/2023 TIME PLUS Q Message Enc [facility] Medical Group Family & Internal Medicine [address] [address] Kylee Villanueva MD [address] [place] [address]. [address] [place] [address] Blood Pressure Social History Tobacco Use Types Packs/Day Years [...] Sex Assigned at Female 11/14/2024 2:54 PM CHEMISTRY QUALITY CONTROL TECHNICIAN Legal Sex Female 11:06 AM CDT Gender Identity Female 05/11/2025 1:56 PM CDT Sexual Orientation Not on file documented as of this encounter Progress Notes * Josselin Ortiz RN - 07/21/2023 1:38 PM CDT Please advise documented in this encounter Plan of Treatment Upcoming Encounters Date Type Department Care Team (Latest Contact Info) Description 06/07/2025 5:00 PM CDT Hospital Encounter [facility] [place] [address] [id number] Elizabeth Ryder MD Three [facility] [address] [place] [address] 06/07/2025 5:00 PM CDT - 06/07/2025 5:20 PM CDT Surgery [facility] [place] [address] [id number] Elizabeth Ryder MD [address] [address] INJECTION TRIGGER POINT-cervivcal/th oracic 06/11/2025 2:40 PM CDT Office Visit [facility] Medical Group Orthopedic & Sports Medicine - [place] [address] [place] [address] Reynaldo Bunch MD [address] [place] [address] 07/13/2025 9:00 AM CDT Hospital Encounter [facility] Interventional [place] [address] [id number] Elizabeth Ryder MD Three [facility] [address] [place] [address] 07/13/2025 9:00 AM CDT - 07/13/2025 9:20 AM CDT Surgery [facility] [place] [address] [id number] Elizabeth Ryder MD [facility] [address] [place] [address] INJECTION EPIDURAL STEROID [id number] 07/13/2025 11:00 AM CDT Office Visit [facility] Multispecialty Care - [address], [address] [place] [phone] Esau Hoff MD [address] [place] [address] 09/13/2025 7:40 AM CHEMISTRY QUALITY CONTROL TECHNICIAN Office Visit [facility] Medical Group Family & Internal Medicine - [address] [address] Kylee Villanueva MD [address] [place] [address] [place] [address] [phone] Scheduled Procedures Name Priority Associated Diagnoses Date/Ti me INJECTION TRIGGER POINT Myofascial pain 06/07/2025 5:00 PM CDT INJECTION EPIDURAL STEROID CERVICAL Cervical radiculopathy 07/13/2025 9:00 AM CDT documented as of this encounter Visit Diagnoses Diagnosis Primary hypertension- Primary Unspecified essential hypertension Myofascial pain Mylagia and myositis, unspecified Cervical radiculopathy Brachial neuritis or radiculitis nos documented in this encounter Additional Health Concerns Infection Onset Date Last Indicated Resolved Time COVID-19 Rule Out 12/13/2023 12/13/2023 12/13/2023 8:54 AM CHEMISTRY QUALITY CONTROL TECHNICIAN COVID-19 Rule Out 08/30/2024 08/30/2024 08/30/2024 8:14 AM CHEMISTRY QUALITY CONTROL TECHNICIAN COVID-19 Rule Out 11/03/2024 11/03/2024 11/03/2024 10:48 AM CHEMISTRY QUALITY CONTROL TECHNICIAN documented as of this encounter Care Teams Trading Specialist Relationship Specialty Start [place] [address] [facility]. [address] [place] [address] PCP - General FAMILY PRACTICE 06/07/23 Alberto Avendano MD NEUROLOGICAL SURGERY 11/24/21 documented as of this encounter
--- OUTSIDE RECORDS SUMMARY | 2025-05-30 00:40 | XMS_ITS | Encounter Summary ---
Author Organization [facility] Address [facility] [place] [address] Care Team Providers Care Treater Helper Name Role Phone Viv Hamm Primary Care Provider [phone] Alberto Avendano MD Unavailable [phone] Kylee Villanueva MD Primary Care Provider [phone] Encounter Details Date Type Department Care Team (Late st Contact Info) Description 07/01/2021 MyChart Message Enc [facility] Medical Group General Surgery [address], [address] [place] [address] Tracy Godoy MD [address] [address] Test Results Social History Tobacco Use Types Packs/Day Years [...] Sex Assigned at Female 11/14/2024 2:54 PM STAFF ENGINEER Legal Sex Female 11:06 AM CDT Gender Identity Female 05/11/2025 1:56 PM CDT Sexual Orientation Not on file COVID-19 Exposure Response Date Recorded In the last month, have you been in contact with someone who was confirmed or suspected to have Coronavirus / COVID-19? No / Unsure 06/12/2021 7:32 PM CDT documented as of this encounter Progress Notes * Artemio Novak MA - 07/01/2021 9:44 AM CDT Called patient and E-mail the patient's pathology results to her this morning. documented in this encounter Plan of Treatment Upcoming Encounters Date Type Department Care Team (Latest Contact Info) Description 06/07/2025 5:00 PM CDT Hospital Encounter [facility] [place] [address] [id number] Elizabeth Ryder MD Three [facility] [address] [place] [address] 06/07/2025 5:00 PM CDT - 06/07/2025 5:20 PM CDT Surgery [facility] [place]ventional [place] [address] [id number] Elizabeth Ryder MD Three [facility] [address] [place] [address] INJECTION TRIGGER POINT-cervivcal/th oracic 06/11/2025 2:40 PM CDT Office Visit [facility] Medical Group Orthopedic & Sports Medicine - [place] [address] [place] [address] Reynaldo Bunch MD [address] [place] [address] 07/13/2025 9:00 AM CDT Hospital Encounter [facility] Interventional [place] [address] [id number] Elizabeth Ryder MD Three [facility] [address] [place] [address] 07/13/2025 9:00 AM CDT - 07/13/2025 9:20 AM CDT Surgery [facility] Interventional [place] [address] [id number] Elizabeth Ryder MD Three [facility] [address] [place] [address] INJECTION EPIDURAL STEROID [id number] 07/13/2025 11:00 AM CDT Office Visit [facility] Medical Group Multispecialty Care - [facility] 3 [facility], [address] [place] [address] Esau Hoff MD 3 [facility] [address] [place] [address] 09/13/2025 7:40 AM STAFF ENGINEER Office Visit [facility] Medical Group Family & Internal Medicine - [address] [address] Kylee Villanueva MD [address] [place] [address] [place] [address] [phone] Scheduled Procedures Name Priority Associated Diagnoses Date/Ti me INJECTION TRIGGER POINT Myofascial pain 06/07/2025 5:00 PM CDT INJECTION EPIDURAL STEROID CERVICAL Cervical radiculopathy 07/13/2025 9:00 AM CDT documented as of this encounter Visit Diagnoses Not on filedocumented in this encounter Additional Health Concerns Infection Onset Date Last Indicated Resolved Time COVID-19 Rule Out 12/13/2023 12/13/2023 12/13/2023 8:54 AM STAFF ENGINEER COVID-19 Rule Out 08/30/2024 08/30/2024 08/30/2024 8:14 AM STAFF ENGINEER COVID-19 Rule Out 11/03/2024 11/03/2024 11/03/2024 10:48 AM STAFF ENGINEER documented as of this encounter Care Teams Treater Helper Relationship Specialty [place] [address] [facility] [place] [address] PCP - General PHYSICIAN THIRD MILLER 02/03/21 06/06/23 [place] [address] [facility] [address] [address] PCP - General FAMILY PRACTICE 06/07/23 [place] [address] [facility] [place] [address] NEUROLOGICAL SURGERY 11/24/21 documented as of this encounter
--- OUTSIDE RECORDS SUMMARY | 2025-05-30 00:40 | XMS_ITS | Encounter Summary ---
Author Organization [facility] Address [address] [place] [address] Care Team Providers Care Water Taxi Operator Name Role Phone Viv Hamm Primary Care Provider [phone] Alberto Avendano MD Unavailable [phone] Kylee Villanueva MD Primary Care Provider [phone] Encounter Details Date Type Department Care Team (Late st Contact Info) Description 10/15/2021 MyChart Message Enc [facility] Medical Group Family & Internal Medicine [facility] [address] [place] [address] [place] [id number] [place] [address] Blood test and Urinalysis Questions Social History Tobacco Use Types Packs/Day Years [...] Sex Assigned at Female 11/14/2024 2:54 PM JOURNAL BOX INSPECTOR Legal Sex Female 11:06 AM CDT Gender Identity Female 05/11/2025 1:56 PM CDT Sexual Orientation Not on file COVID-19 Exposure Response Date Recorded In the last month, have you been in contact with someone who was confirmed or suspected to have Coronavirus / COVID-19? No / Unsure 10/16/2021 12:10 PM JOURNAL BOX INSPECTOR documented as of this encounter Progress Notes * Anabell Vallecillo MA - 10/20/2021 2:34 PM CST Ok per Viv to have UA with labs on 10/21/21. Order placed for lab downstairs. Pt informed. NAL BOX INSPECTOR documented in this encounter Plan of Treatment Upcoming Encounters Date Type Department Care Team (Latest Contact Info) Description 06/07/2025 5:00 PM CDT Hospital Encounter [facility] Interventional [place] [address] [id number] Elizabeth Ryder MD Three [facility] [address] [place] [address] 06/07/2025 5:00 PM CDT - 06/07/2025 5:[address] [facility] [place] [address] [id number] Elizabeth Ryder MD Three [facility] [address] [place] [address] INJECTION TRIGGER POINT-cervivcal/th oracic 06/11/2025 2:40 PM CDT Office Visit [facility] Medical Group Orthopedic & Sports Medicine - [place] [address] [place] [address] Reynaldo Bunch MD [address] [place] [address] [place] [address] 07/13/2025 9:00 AM CDT Hospital Encounter [facility] Interventional [place] [address] [id number] Elizabeth Ryder MD Three [facility] [address] [place] [address] 07/13/2025 9:00 AM CDT - 07/13/2025 9:[address] [facility] [place] [address] [id number] Elizabeth Ryder MD Three [facility] [address] [place] [address] INJECTION EPIDURAL STEROID [id number] 07/13/2025 11:00 AM CDT Office Visit [facility] Medical [facility] Multispecialty Care - [facility] 3 [facility], [address] [place] [address] Esau Hoff MD 3 [facility] [address] [place] [address] 09/13/2025 7:40 AM JOURNAL BOX INSPECTOR Office Visit [facility] Medical Group Family & Internal Medicine - [address] [address] Kylee Villanueva MD [address] [place] [address] [place] [address] Scheduled Procedures Name Priority Associated Diagnoses Date/Ti me INJECTION TRIGGER POINT Myofascial pain 06/07/2025 5:00 PM CDT INJECTION EPIDURAL STEROID CERVICAL Cervical radiculopathy 07/13/2025 9:00 AM CDT documented as of this encounter Visit Diagnoses Not on filedocumented in this encounter Additional Health Concerns Infection Onset Date Last Indicated Resolved Time COVID-19 Rule Out 12/13/2023 12/13/2023 12/13/2023 8:54 AM JOURNAL BOX INSPECTOR COVID-19 Rule Out 08/30/2024 08/30/2024 08/30/2024 8:14 AM JOURNAL BOX INSPECTOR COVID-19 Rule Out 11/03/2024 11/03/2024 11/03/2024 10:48 AM JOURNAL BOX INSPECTOR documented as of this encounter Care Teams Water Taxi Operator Relationship Specialty [place] [address] [place] [address] PCP - General PHYSICIAN CAMPUS POLICE OFFICER 02/03/21 06/06/23 [place] [address] [facility] [address] [place] [address] PCP - General FAMILY PRACTICE 06/07/23 [place] [address] [facility] [place] [address] NEUROLOGICAL SURGERY 11/24/21 documented as of this encounter
--- OUTSIDE RECORDS SUMMARY | 2025-05-30 00:40 | XMS_ITS | Encounter Summary ---
Author Organization [facility] Address [facility] [place] [address] Care Team Providers Care Machine Adjuster Leader Name Role Phone Viv Hamm Primary Care Provider [phone] Alberto Avendano MD Unavailable [phone] Kylee Villanueva MD Primary Care Provider [phone] Encounter Details Date Type Department Care Team (Latest Contact Info) Description 03/02/2021 MyChart Message Enc [facility] Medical Group Multispecialty Care - [facility] 3 [facility] [address] [place] [address] Reynaldo Bunch MD [address] [place] [address] [phone] RE: Test Results Social History Tobacco Use Types [...] Sex Assigned at Female 11/14/2024 2:54 PM HUNTING GUIDE Legal Sex Female 11:06 AM CDT Gender Identity Female 05/11/2025 1:56 PM CDT Sexual Orientation Not on file COVID-19 Exposure Response Date Recorded In the last month, have you been in contact with someone who was confirmed or suspected to have Coronavirus / COVID-19? No / Unsure 02/25/2021 11:21 AM CDT documented as of this encounter Plan of Treatment Upcoming Encounters Date Type Department Care Team (Latest Contact Info) Description 06/07/2025 5:00 PM CDT Hospital Encounter [facility] [place]ventional [place] [address] [id number] Elizabeth Ryder MD Three [address] [address] 06/07/2025 5:00 PM CDT - 06/07/2025 5:20 PM CDT Surgery [facility] [place] [address] [id number] Elizabeth Ryder MD Three [address] [address] INJECTION TRIGGER POINT-cervivcal/th oracic 06/11/2025 2:40 PM CDT Office Visit [facility] Medical Group Orthopedic & Sports Medicine - [place] [address] [place] [address] Reynaldo Bunch MD [address] [place] [address] 07/13/2025 9:00 AM CDT Hospital Encounter [facility] [place] [address] [id number] Elizabeth Ryder MD Three [facility] [address] [place] [address] 07/13/2025 9:00 AM CDT - 07/13/2025 9:20 AM CDT Surgery [facility] Interventional [place] [address] [id number] Elizabeth Ryder MD Three [facility] [address] [place] [address] INJECTION EPIDURAL STEROID [id number] 07/13/2025 11:00 AM CDT Office Visit [facility] Multispecialty Care - [facility] 3 [facility] [address] [place] [address] Esau Hoff MD 3 [facility] [address] [place] [address] 09/13/2025 7:40 AM HUNTING GUIDE Office Visit [facility] Medical [facility] Family & Internal Medicine - [address] [address] Kylee Villanueva MD [address] [place] [address] [place] [address] Scheduled Procedures Name Priority Associated Diagnoses Date/Ti me INJECTION TRIGGER POINT Myofascial pain 06/07/2025 5:00 PM CDT INJECTION EPIDURAL STEROID CERVICAL Cervical radiculopathy 07/13/2025 9:00 AM CDT documented as of this encounter Visit Diagnoses Not on filedocumented in this encounter Additional Health Concerns Infection Onset Date Last Indicated Resolved Time COVID-19 Rule Out 12/13/2023 12/13/2023 12/13/2023 8:54 AM HUNTING GUIDE COVID-19 Rule Out 08/30/2024 08/30/2024 08/30/2024 8:14 AM HUNTING GUIDE COVID-19 Rule Out 11/03/2024 11/03/2024 11/03/2024 10:48 AM HUNTING GUIDE documented as of this encounter Care Teams Machine Adjuster Leader Relationship Specialty [place] [address] [place] [address] PCP - General PHYSICIAN CARE MANAGEMENT COORDINATOR 02/03/21 06/06/23 [place] [address] [address] [place] [address] PCP - General FAMILY PRACTICE 06/07/23 [place] [address] [place] [address] NEUROLOGICAL SURGERY 11/24/21 documented as of this encounter
--- OUTSIDE RECORDS SUMMARY | 2025-05-30 00:40 | XMS_ITS | Encounter Summary ---
Author Organization [facility] Address [address] [place] [address] Care Team Providers Care Parts Delivery Driver Name Role Phone Alberto Avendano MD Unavailable [phone] Kylee Villanueva MD Primary Care Provider [phone] Encounter Details Date Type Department Care Team (Late st Contact Info) Description 08/17/2023 [employer] Message Enc [facility] Interventional [place] [address] [id number] Concha Albert NP 3 [facility] [address] [place] [address] [phone] (Work) Injection denied by insurance Social History Tobacco Use Types Packs/Day Years [...] Sex Assigned at Female 11/14/2024 2:54 PM SEAFOOD TECHNOLOGY SPECIALIST Legal Sex Female 11:06 AM CDT Gender Identity Female 05/11/2025 1:56 PM CDT Sexual Orientation Not on file documented as of this encounter Plan of Treatment Upcoming Encounters Date Type Department Care Team (Latest Contact Info) Description 06/07/2025 5:00 PM CDT Hospital Encounter [facility] Interventional [place] [address] [id number] Elizabeth Ryder MD [address] [address] 06/07/2025 5:00 PM CDT - 06/07/2025 5:20 PM CDT Surgery [facility] [place] [address] [id number] Elizabeth Ryder MD [address] [address] INJECTION TRIGGER POINT-cervivcal/th oracic 06/11/2025 2:40 PM CDT Office Visit [facility] Medical Group Orthopedic & Sports Medicine - [place] [address] [place] [address] Reynaldo Bunch MD [address] [place] [address] 07/13/2025 9:00 AM CDT Hospital Encounter [facility] [place] [address] [id number] Elizabeth Ryder MD [address] [place] [address] 07/13/2025 9:00 AM CDT - 07/13/2025 9:20 AM CDT Surgery [facility] Interventional [place] [address] [id number] Elizabeth Ryder MD Three [facility] [address] [place] [address] INJECTION EPIDURAL STEROID [id number] 07/13/2025 11:00 AM CDT Office Visit [facility] Multispecialty Care - [facility] 3 [facility] [address] [place] [address] Esau Hoff MD 3 [facility] [address] [place] [address] 09/13/2025 7:40 AM SEAFOOD TECHNOLOGY SPECIALIST Office Visit [facility] Medical [facility] Family & Internal Medicine - [address] [address] Kylee Villanueva MD [address] [place] [address] [phone] Scheduled Procedures Name Priority Associated Diagnoses Date/Ti me INJECTION TRIGGER POINT Myofascial pain 06/07/2025 5:00 PM CDT INJECTION EPIDURAL STEROID CERVICAL Cervical radiculopathy 07/13/2025 9:00 AM CDT documented as of this encounter Visit Diagnoses Not on filedocumented in this encounter Additional Health Concerns Infection Onset Date Last Indicated Resolved Time COVID-19 Rule Out 12/13/2023 12/13/2023 12/13/2023 8:54 AM SEAFOOD TECHNOLOGY SPECIALIST COVID-19 Rule Out 08/30/2024 08/30/2024 08/30/2024 8:14 AM SEAFOOD TECHNOLOGY SPECIALIST COVID-19 Rule Out 11/03/2024 11/03/2024 11/03/2024 10:48 AM SEAFOOD TECHNOLOGY SPECIALIST documented as of this encounter Care Teams Parts Delivery Driver Relationship Specialty [place] [address] [facility] [place] [address] PCP - General FAMILY PRACTICE 06/07/23 Alberto Avendano MD NEUROLOGICAL SURGERY 11/24/21 documented as of this encounter
--- OUTSIDE RECORDS SUMMARY | 2025-05-30 00:40 | XMS_ITS | Encounter Summary ---
Author Organization [facility] Address [address] [place] [address] Care Team Providers Care Snorkelling Instructor Name Role Phone Viv Hamm Primary Care Provider [phone] Alberto Avendano MD Unavailable [phone] Kylee Villanueva MD Primary Care Provider [phone] Encounter Details Date Type Department Care Team (Late st Contact Info) Description 09/04/2021 MyChart Message Enc [facility] Medical Group Family & Internal Medicine [facility] [address] [place] [address] Viv Hamm [place] [id number] [place] [address] MRI Results Social History Tobacco Use Types Packs/Day [...] Sex Assigned at Female 11/14/2024 2:54 PM COMMERCIAL ANALYST Legal Sex Female 11:06 AM CDT Gender Identity Female 05/11/2025 1:56 PM CDT Sexual Orientation Not on file COVID-19 Exposure Response Date Recorded In the last month, have you been in contact with someone who was confirmed or suspected to have Coronavirus / COVID-19? No / Unsure 09/03/2021 7:47 AM COMMERCIAL ANALYST documented as of this encounter Plan of Treatment Upcoming Encounters Date Type Department Care Team (Latest Contact Info) Description 06/07/2025 5:00 PM CDT Hospital Encounter [facility] Interventional [place] [address] [id number] Elizabeth Ryder MD Three [address] [address] 06/07/2025 5:00 PM CDT - 06/07/2025 5:20 PM CDT Surgery [facility] [place]ventional [place] [address] [id number] Elizabeth Ryder MD Three [address] [address] INJECTION TRIGGER POINT-cervivcal/th oracic 06/11/2025 2:40 PM CDT Office Visit [facility] Medical Group Orthopedic & Sports Medicine - [place] [address] [place] [address] Reynaldo Bunch MD [address] [place] [address] 07/13/2025 9:00 AM CDT Hospital Encounter [facility] [place] [address] [id number] Elizabeth Ryder MD Three [facility] [address] [place] [address] 07/13/2025 9:00 AM CDT - 07/13/2025 9:20 AM CDT Surgery [facility] Interventional [place] [address] [id number] Elizabeth Ryder MD Three [facility] [address] [place] [address] INJECTION EPIDURAL STEROID [id number] 07/13/2025 11:00 AM CDT Office Visit [facility] Multispecialty Care - [facility] 3 [facility] [address] [place] [address] Esau Hoff MD 3 [facility] [address] [place] [address] 09/13/2025 7:40 AM COMMERCIAL ANALYST Office Visit [facility] Medical [facility] Family & Internal Medicine - [address] [address] Kylee Villanueva MD [address] [place] [address] [place], [place] [id number] Scheduled Procedures Name Priority Associated Diagnoses Date/Ti me INJECTION TRIGGER POINT Myofascial pain 06/07/2025 5:00 PM CDT INJECTION EPIDURAL STEROID CERVICAL Cervical radiculopathy 07/13/2025 9:00 AM CDT documented as of this encounter Visit Diagnoses Not on filedocumented in this encounter Additional Health Concerns Infection Onset Date Last Indicated Resolved Time COVID-19 Rule Out 12/13/2023 12/13/2023 12/13/2023 8:54 AM COMMERCIAL ANALYST COVID-19 Rule Out 08/30/2024 08/30/2024 08/30/2024 8:14 AM COMMERCIAL ANALYST COVID-19 Rule Out 11/03/2024 11/03/2024 11/03/2024 10:48 AM COMMERCIAL ANALYST documented as of this encounter Care Teams Snorkelling Instructor Relationship Specialty [place] [address] [place] [address] PCP - General PHYSICIAN INDUSTRIAL YARD BRAKE COUPLER 02/03/21 06/06/23 [place] [address] [address] [place] [address] PCP - General FAMILY PRACTICE 06/07/23 [place] [address] [place] [address] NEUROLOGICAL SURGERY 11/24/21 documented as of this encounter
--- OUTSIDE RECORDS SUMMARY | 2025-05-30 00:40 | XMS_ITS | Encounter Summary ---
Author Organization [facility] Address [address] [place] [address] Care Team Providers Care Printed Circuit Board Preassembler Name Role Phone Viv Hamm Primary Care Provider [phone] Alberto Avendano MD Unavailable [phone] Kylee Villanueva MD Primary Care Provider [phone] Encounter Details Date Type Department Care Team (Late st Contact Info) Description 09/09/2021 PageStitchhart Message Enc [facility] Medical Group Family & Internal Medicine [facility] [address] [place] [address] Viv Hamm [place] [id number] [place] [address] Back Issues Social History Tobacco Use Types Packs/Day Years [...] Sex Assigned at Female 11/14/2024 2:54 PM POCKET MARKER Legal Sex Female 11:06 AM CDT Gender Identity Female 05/11/2025 1:56 PM CDT Sexual Orientation Not on file COVID-19 Exposure Response Date Recorded In the last month, have you been in contact with someone who was confirmed or suspected to have Coronavirus / COVID-19? No / Unsure 09/12/2021 10:30 AM POCKET MARKER documented as of this encounter Plan of Treatment Upcoming Encounters Date Type Department Care Team (Latest Contact Info) Description 06/07/2025 5:00 PM CDT Hospital Encounter [facility] Interventional [place] [address] [id number] Elizabeth Ryder MD Three [address] [address] 06/07/2025 5:00 PM CDT - 06/07/2025 5:20 PM CDT Surgery [facility] Interventional [place] [address] [id number] Elizabeth Ryder MD Three [address] [address] INJECTION TRIGGER POINT-cervivcal/th oracic 06/11/2025 2:40 PM CDT Office Visit [facility] Medical Group Orthopedic & Sports Medicine - [place] [address] [place] [address] Reynaldo Bunch MD [address] [place] [address] 07/13/2025 9:00 AM CDT Hospital Encounter [facility] [place] [address] [id number] Elizabeth Ryder MD Three [facility] [address] [place] [address] 07/13/2025 9:00 AM CDT - 07/13/2025 9:20 AM CDT Surgery [facility] Interventional [place] [address] [id number] Elizabeth Ryder MD Three [facility] [address] [place] [address] INJECTION EPIDURAL STEROID [id number] 07/13/2025 11:00 AM CDT Office Visit [facility] Multispecialty Care - [facility] [address] [facility] [address] [place] [address] Esau Hoff MD 3 [facility] [address] [place] [address] 09/13/2025 7:40 AM POCKET MARKER Office Visit [facility] Medical [facility] Family & Internal Medicine - [address] [address] Kylee Villanueva MD [address] [place] [address] [place], [place] [id number] Scheduled Procedures Name Priority Associated Diagnoses Date/Ti me INJECTION TRIGGER POINT Myofascial pain 06/07/2025 5:00 PM CDT INJECTION EPIDURAL STEROID CERVICAL Cervical radiculopathy 07/13/2025 9:00 AM CDT documented as of this encounter Visit Diagnoses Not on filedocumented in this encounter Additional Health Concerns Infection Onset Date Last Indicated Resolved Time COVID-19 Rule Out 12/13/2023 12/13/2023 12/13/2023 8:54 AM POCKET MARKER COVID-19 Rule Out 08/30/2024 08/30/2024 08/30/2024 8:14 AM POCKET MARKER COVID-19 Rule Out 11/03/2024 11/03/2024 11/03/2024 10:48 AM POCKET MARKER documented as of this encounter Care Teams Printed Circuit Board Preassembler Relationship Specialty [place] [address] [place] [address] PCP - General PHYSICIAN REGISTERED RADIOLOGIC TECHNOLOGIST 02/03/21 06/06/23 [place] [address] [address] [place] [address] PCP - General FAMILY PRACTICE 06/07/23 [place] [address] [place] [address] NEUROLOGICAL SURGERY 11/24/21 documented as of this encounter
--- OUTSIDE RECORDS SUMMARY | 2025-05-30 00:40 | XMS_ITS | Encounter Summary ---
Author Organization [facility] Address [facility] [place] [place] [address] Care Team Providers Care Acquisition Editor Name Role Phone Viv Hamm Primary Care Provider [phone] Alberto Avendano MD Unavailable [phone] Kylee Villanueva MD Primary Care Provider [phone] Encounter Details Date Type Department Care Team (Latest Contact Info) Description 02/19/2023 MyChart Message Enc [facility] Medical Group Multispecialty Care - [facility] [address] [facility] [address] [place] [address] Shane Noble MD [address] [place] [address] Lumbar MRI denied by insurance Social History Tobacco Use [...] Sex Assigned at Female 11/14/2024 2:54 PM PHILATELIC CONSULTANT Legal Sex Female 11:06 AM CDT Gender Identity Female 05/11/2025 1:56 PM CDT Sexual Orientation Not on file COVID-19 Exposure Response Date Recorded In the last 10 days, have mark anthony u been in contact with someone who was confirmed or suspected to have Coronavirus/COVID-19? No / Unsure 01/20/2023 9:51 AM CDT documented as of this encounter Progress Notes * Shane Noble MD - 02/19/2023 3:29 PM CDT Ok, we requested a peer to peer. documented in this encounter Plan of Treatment Upcoming Encounters Date Type Department Care Team (Latest Contact Info) Description 06/07/2025 5:00 PM CDT Hospital Encounter [facility] [place]ventional [place] [address] [id number] Elizabeth Ryder MD [address] [address] 06/07/2025 5:00 PM CDT - 06/07/2025 5:20 PM CDT Surgery [facility] Interventional [place] [address] [id number] Elizabeth Ryder MD Three [address] [address] INJECTION TRIGGER POINT-cervivcal/th oracic 06/11/2025 2:40 PM CDT Office Visit [facility] Orthopedic & Sports Medicine - [place] [address] [place] [address] Reynaldo Bunch MD [address] [place] [address] 07/13/2025 9:00 AM CDT Hospital Encounter [facility] Interventional [place] [address] [id number] Elizabeth Ryder MD Three [facility] [address] [place] [address] 07/13/2025 9:00 AM CDT - 07/13/2025 9:20 AM CDT Surgery [facility] Interventional Pain [place] [address] [id number] Elizabeth Ryder MD Three [facility] [address] [place] [address] INJECTION EPIDURAL STEROID [id number] 07/13/2025 11:00 AM CDT Office Visit [facility] Multispecialty Care - [facility] 3 [facility] [place] [address] Esau Hoff MD 3 [facility] [address] [place] [address] 09/13/2025 7:40 AM PHILATELIC CONSULTANT Office Visit [facility] Medical [facility] Family & Internal Medicine - [address] [address] Kylee Villanueva MD [address] [place] [address] [place] [address] Scheduled Procedures Name Priority Associated Diagnoses Date/Ti me INJECTION TRIGGER POINT Myofascial pain 06/07/2025 5:00 PM CDT INJECTION EPIDURAL STEROID CERVICAL Cervical radiculopathy 07/13/2025 9:00 AM CDT documented as of this encounter Visit Diagnoses Not on filedocumented in this encounter Additional Health Concerns Infection Onset Date Last Indicated Resolved Time COVID-19 Rule Out 12/13/2023 12/13/2023 12/13/2023 8:54 AM PHILATELIC CONSULTANT COVID-19 Rule Out 08/30/2024 08/30/2024 08/30/2024 8:14 AM PHILATELIC CONSULTANT COVID-19 Rule Out 11/03/2024 11/03/2024 11/03/2024 10:48 AM PHILATELIC CONSULTANT documented as of this encounter Care Teams Acquisition Editor Relationship Specialty [place] [address] [place] [address] PCP - General PHYSICIAN NOISE TESTER 02/03/21 06/06/23 [place] [address] [address] [place] [address] PCP - General FAMILY PRACTICE 06/07/23 [place] [address] [place] [address] NEUROLOGICAL SURGERY 11/24/21 documented as of this encounter
--- OUTSIDE RECORDS SUMMARY | 2025-05-30 00:40 | XMS_ITS | Encounter Summary ---
Author Organization [facility] Address [facility] [place] [address] Care Team Providers Care Airline Counter Agent Name Role Phone Viv Hamm Primary Care Provider [phone] Alberto Avendano MD Unavailable [phone] Kylee Villanueva MD Primary Care Provider Encounter Details Date Type Department Care Team (Late st Contact Info) Description 10/13/2021 [employer] Message Enc [facility] Medical Group Multispecialty Care - [facility] 3 [facility], [address] [place] [address] [place] Provider Results Social History Tobacco Use Types Packs/Day [...] Sex Assigned at Female 11/14/2024 2:54 PM DATABASE OPERATOR Legal Sex Female 11:06 AM CDT Gender Identity Female 05/11/2025 1:56 PM CDT Sexual Orientation Not on file COVID-19 Exposure Response Date Recorded In the last month, have you been in contact with someone who was confirmed or suspected to have Coronavirus / COVID-19? No / Unsure 10/16/2021 12:10 PM DATABASE OPERATOR documented as of this encounter Plan of Treatment Upcoming Encounters Date Type Department Care Team (Latest Contact Info) Description 06/07/2025 5:00 PM CDT Hospital Encounter [facility] Interventional [place] [address] [id number] Elizabeth Ryder MD [address] [address] 06/07/2025 5:00 PM CDT - 06/07/2025 5:20 PM CDT Surgery [facility] Interventional [place] [address] [id number] Elizabeth Ryder MD [address] [address] INJECTION TRIGGER POINT-cervivcal/th oracic 06/11/2025 2:40 PM CDT Office Visit [facility] Medical Group Orthopedic & Sports Medicine - [place] [address] [place] [address] Reynaldo Bunch MD [address] [place] [address] 07/13/2025 9:00 AM CDT Hospital Encounter [facility] Interventional [place] [address] [id number] Elizabeth Ryder MD [address] [address] 07/13/2025 9:00 AM CDT - 07/13/2025 9:20 AM CDT Surgery [facility] Interventional [place] [address] [id number] Elizabeth Ryder MD Three [facility] [address] [place] [address] INJECTION EPIDURAL STEROID [id number] 07/13/2025 11:00 AM CDT Office Visit [facility] Multispecialty Care - [facility] 3 [facility] [address] [place] [address] Esau Hoff MD 3 [facility] [address] [place] [address] 09/13/2025 7:40 AM DATABASE OPERATOR Office Visit [facility] Medical Group Family & Internal Medicine - [address] [address] Kylee Villanueva MD [address] [place] [address] [place] [id number] Scheduled Procedures Name Priority Associated Diagnoses Date/Ti me INJECTION TRIGGER POINT Myofascial pain 06/07/2025 5:00 PM CDT INJECTION EPIDURAL STEROID CERVICAL Cervical radiculopathy 07/13/2025 9:00 AM CDT documented as of this encounter Visit Diagnoses Not on filedocumented in this encounter Additional Health Concerns Infection Onset Date Last Indicated Resolved Time COVID-19 Rule Out 12/13/2023 12/13/2023 12/13/2023 8:54 AM DATABASE OPERATOR COVID-19 Rule Out 08/30/2024 08/30/2024 08/30/2024 8:14 AM DATABASE OPERATOR COVID-19 Rule Out 11/03/2024 11/03/2024 11/03/2024 10:48 AM DATABASE OPERATOR documented as of this encounter Care Teams Airline Counter Agent Relationship Specialty [place] [address] [place] [address] PCP - General PHYSICIAN HALL COORDINATOR 02/03/21 06/06/23 [place] [address] [address] [place] [address] PCP - General FAMILY PRACTICE 06/07/23 [place] [address] [place] [address] NEUROLOGICAL SURGERY 11/24/21 documented as of this encounter
--- OUTSIDE RECORDS SUMMARY | 2025-05-30 00:40 | XMS_ITS | Encounter Summary ---
Author Organization [facility] Address [address] [place] [address] Care Team Providers Care Electrician Deck Name Role Phone Alberto Avendano MD Unavailable [phone] Kylee Villanueva MD Primary Care Provider [phone] Encounter Details Date Type Department Care Team (Late st Contact Info) Description 07/07/2023 Pay with a Tweet Message Enc [facility] Medical Group Orthopedic & Sports Medicine [address] [address] [place], [facility] Provider apt Social History Tobacco Use Types Packs/Day Years [...] Sex Assigned at Female 11/14/2024 2:54 PM DIRECTOR OF EMERGENCY NURSING Legal Sex Female 11:06 AM CDT Gender Identity Female 05/11/2025 1:56 PM CDT Sexual Orientation Not on file documented as of this encounter Plan of Treatment Upcoming Encounters Date Type Department Care Team (Latest Contact Info) Description 06/07/2025 5:00 PM CDT Hospital Encounter [facility] Interventional [place] [address] [id number] Elizabeth Ryder MD Three [address] [address] 06/07/2025 5:00 PM CDT - 06/07/2025 5:20 PM CDT Surgery [facility] [place]ventional [place] [address] [id number] Elizabeth Ryder MD Three [address] [address] INJECTION TRIGGER POINT-cervivcal/th oracic 06/11/2025 2:40 PM CDT Office Visit [facility] Medical Group Orthopedic & Sports Medicine - [place] [address] [place] [address] Reynaldo Bunch MD 670 [place] [address] 07/13/2025 9:00 AM CDT Hospital Encounter [facility] [place] [address] [id number] Elizabeth Ryder MD Three [address] [address] 07/13/2025 9:00 AM CDT - 07/13/2025 9:20 AM CDT Surgery [facility] Interventional Pain [place] [address] [id number] Elizabeth Ryder MD Three [facility] [address] [place] [address] INJECTION EPIDURAL STEROID [id number] 07/13/2025 11:00 AM CDT Office Visit [facility] Multispecialty Care - [facility] 3 [facility] [address] [place] [address] Esau Hoff MD 3 [facility] [address] [place] [address] 09/13/2025 7:40 AM DIRECTOR OF EMERGENCY NURSING Office Visit [facility] Family & Internal Medicine [address] [address] Kylee Villanueva MD [address] [place] [address] [place] [address] Scheduled Procedures Name Priority Associated Diagnoses Date/Ti me INJECTION TRIGGER POINT Myofascial pain 06/07/2025 5:00 PM CDT INJECTION EPIDURAL STEROID CERVICAL Cervical radiculopathy 07/13/2025 9:00 AM CDT documented as of this encounter Visit Diagnoses Not on filedocumented in this encounter Additional Health Concerns Infection Onset Date Last Indicated Resolved Time COVID-19 Rule Out 12/13/2023 12/13/2023 12/13/2023 8:54 AM DIRECTOR OF EMERGENCY NURSING COVID-19 Rule Out 08/30/2024 08/30/2024 08/30/2024 8:14 AM DIRECTOR OF EMERGENCY NURSING COVID-19 Rule Out 11/03/2024 11/03/2024 11/03/2024 10:48 AM DIRECTOR OF EMERGENCY NURSING documented as of this encounter Care Teams Electrician Deck Relationship Specialty [place] [address] [address] [place] [address] PCP - General FAMILY PRACTICE 06/07/23 Alberto Avendano MD NEUROLOGICAL SURGERY 11/24/21 documented as of this encounter
--- OUTSIDE RECORDS SUMMARY | 2025-05-30 00:40 | XMS_ITS | Encounter Summary ---
Author Organization [facility] Address [address] [place] [address] Care Team Providers Care Principle Industrial Hygienist Name Role Phone Viv Hamm Primary Care Provider [phone] Alberto Avendano MD Unavailable [phone] Kylee Villanueva MD Primary Care Provider [phone] Encounter Details Date Type Department Care Team (Late st Contact Info) Description 08/26/2021 [employer] Message Enc [facility] Medical Group Family & Internal Medicine [facility] [address] [place] [address] Viv Hamm [place] [id number] [place] [address] RE: Follow Up/Update Social History Tobacco Use Types Packs/Day Years [...] Sex Assigned at Female 11/14/2024 2:54 PM LEASE ATTENDANT Legal Sex Female 11:06 AM CDT Gender Identity Female 05/11/2025 1:56 PM CDT Sexual Orientation Not on file COVID-19 Exposure Response Date Recorded In the last month, have you been in contact with someone who was confirmed or suspected to have Coronavirus / COVID-19? No / Unsure 08/27/2021 12:24 PM CDT documented as of this encounter Plan of Treatment Upcoming Encounters Date Type Department Care Team (Latest Contact Info) Description 06/07/2025 5:00 PM CDT Hospital Encounter [facility] [place]ventional [place] [address] [id number] Elizabeth Ryder MD Three [address] [address] 06/07/2025 5:00 PM CDT - 06/07/2025 5:20 PM CDT Surgery [facility] [place]ventional [place] [address] [id number] Elizabeth Ryder MD Three [address] [address] INJECTION TRIGGER POINT-cervivcal/th oracic 06/11/2025 2:40 PM CDT Office Visit [facility] Medical Group Orthopedic & Sports Medicine - [place] [address] [place] [address] Reynaldo Bunch MD [address] [place] [address] 07/13/2025 9:00 AM CDT Hospital Encounter [facility] Interventional [place] [address] [id number] Elizabeth Ryder MD Three [facility] [address] [place] [address] 07/13/2025 9:00 AM CDT - 07/13/2025 9:20 AM CDT Surgery [facility] Interventional [place] [address] [id number] Elizabeth Ryder MD Three [facility] [address] [place] [address] INJECTION EPIDURAL STEROID [id number] 07/13/2025 11:00 AM CDT Office Visit [facility] Multispecialty Care - [facility] 3 [facility] [address] [place] [address] Esau Hoff MD 3 [facility] [address] [place] [address] 09/13/2025 7:40 AM LEASE ATTENDANT Office Visit [facility] Medical [facility] Family & Internal Medicine - [address] [address] Kylee Villanueva MD [address] [place] [address] [place] [address] [id number] Scheduled Procedures Name Priority Associated Diagnoses Date/Ti me INJECTION TRIGGER POINT Myofascial pain 06/07/2025 5:00 PM CDT INJECTION EPIDURAL STEROID CERVICAL Cervical radiculopathy 07/13/2025 9:00 AM CDT documented as of this encounter Visit Diagnoses Not on filedocumented in this encounter Additional Health Concerns Infection Onset Date Last Indicated Resolved Time COVID-19 Rule Out 12/13/2023 12/13/2023 12/13/2023 8:54 AM LEASE ATTENDANT COVID-19 Rule Out 08/30/2024 08/30/2024 08/30/2024 8:14 AM LEASE ATTENDANT COVID-19 Rule Out 11/03/2024 11/03/2024 11/03/2024 10:48 AM LEASE ATTENDANT documented as of this encounter Care Teams Principle Industrial Hygienist Relationship Specialty [place] [address] [place] [address] PCP - General PHYSICIAN RECEPTIONIST DOCTOR'S OFFICE 02/03/21 06/06/23 [place] [address] [address] [place] [address] PCP - General FAMILY PRACTICE 06/07/23 [place] [address] [place] [address] NEUROLOGICAL SURGERY 11/24/21 documented as of this encounter
--- OUTSIDE RECORDS SUMMARY | 2025-05-30 00:40 | XMS_ITS | Encounter Summary ---
Author Organization [facility] Address [facility] [place] [address] Care Team Providers Care Medical Coordinator Pesticide Use Name Role Phone Viv Hamm Primary Care Provider [phone] Alberto Avendano MD Unavailable [phone] Kylee Villanueva MD Primary Care Provider [phone] Encounter Details Date Type Department Care Team (Latest Contact Info) Description 05/10/2023 MyChart Message Enc [facility] Medical Group [facility]ialty [facility] - [facility] 3 [facility], [address] [place] [address] Shane Noble MD 1 [place] [address] Vocal Cord Dysfunction/Paresis Social History Tobacco Use Types Packs/Day Years [...] Sex Assigned at Female 11/14/2024 2:54 PM COMPOUNDING AND FINISHING SUPERVISOR Legal Sex Female 11:06 AM CDT Gender Identity Female 05/11/2025 1:56 PM CDT Sexual Orientation Not on file documented as of this encounter Progress Notes * Shane Noble MD - 05/10/2023 12:44 PM CDT I don't have any other recommendations from my standpoint that could address her symptoms aside from follow up with ENT to see if they need to scope her again. If things get worse, she should go to the ER. documented in this encounter Plan of Treatment Upcoming Encounters Date Type Department Care Team (Latest Contact Info) Description 06/07/2025 5:00 PM CDT Hospital Encounter [facility] Interventional [place] [address] [id number] Elizabeth Ryder MD Three [address] [address] 06/07/2025 5:00 PM CDT - 06/07/2025 5:20 PM CDT Surgery [facility] Interventional [facility] [place] [address] [id number] Elizabeth Ryder MD Three [facility] [address] [place] [address] INJECTION TRIGGER POINT-cervivcal/th oracic 06/11/2025 2:40 PM CDT Office Visit [facility] Medicine - [place] [address] [place] [address] Reynaldo Bunch MD [address] [place] [address] 07/13/2025 9:00 AM CDT Hospital Encounter [facility] Interventional Pain [place] [address] [id number] Elizabeth Ryder MD Three [facility] [address] [place] [address] 07/13/2025 9:00 AM CDT - 07/13/2025 9:20 AM CDT Surgery [facility] Interventional Pain [place] [address] [id number] Elizabeth Ryder MD Three [facility] [address] [place] [address] INJECTION EPIDURAL STEROID [id number] 07/13/2025 11:00 AM CDT Office Visit [facility] Multispecialty Care - [facility] 3 [facility] [address] [place] [address] Esau Hoff MD 3 [facility] [address] [place] [address] 09/13/2025 7:40 AM COMPOUNDING AND FINISHING SUPERVISOR Office Visit [facility] Medical [facility] Family & Internal Medicine - [address] [address] Kylee Villanueva MD [address] [place] [address] [place] [address] Scheduled Procedures Name Priority Associated Diagnoses Date/Ti me INJECTION TRIGGER POINT Myofascial pain 06/07/2025 5:00 PM CDT INJECTION EPIDURAL STEROID CERVICAL Cervical radiculopathy 07/13/2025 9:00 AM CDT documented as of this encounter Visit Diagnoses Not on filedocumented in this encounter Additional Health Concerns Infection Onset Date Last Indicated Resolved Time COVID-19 Rule Out 12/13/2023 12/13/2023 12/13/2023 8:54 AM COMPOUNDING AND FINISHING SUPERVISOR COVID-19 Rule Out 08/30/2024 08/30/2024 08/30/2024 8:14 AM COMPOUNDING AND FINISHING SUPERVISOR COVID-19 Rule Out 11/03/2024 11/03/2024 11/03/2024 10:48 AM COMPOUNDING AND FINISHING SUPERVISOR documented as of this encounter Care Teams Medical Coordinator Pesticide Use Relationship Specialty [place] [address] [place] [address] PCP - General PHYSICIAN PELT INSPECTOR 02/03/21 06/06/23 [place] [address] [address] [place] [address] PCP - General FAMILY PRACTICE 06/07/23 [place] [address] [place] [address] NEUROLOGICAL SURGERY 11/24/21 documented as of this encounter
--- OUTSIDE RECORDS SUMMARY | 2025-05-30 00:40 | XMS_ITS | Encounter Summary ---
Author Organization [facility] Address [address] [place] [address] Care Team Providers Care Prototype Deicer Assembler Name Role Phone Viv Hamm Primary Care Provider [phone] Alberto Avendano MD Unavailable [phone] Kylee Villanueva MD Primary Care Provider [phone] Encounter Details Date Type Department Care Team (Late st Contact Info) Description 07/01/2021 MyChart Message Enc [facility] Medical Group Family & Internal Medicine [facility] [address] [place] [address] [place] [id number] [place] [address] RE: Test Results Social History Tobacco Use [...] Sex Assigned at Female 11/14/2024 2:54 PM PALM GATHERER Legal Sex Female 11:06 AM CDT Gender [...] Description 06/07/2025 5:00 PM CDT Hospital Encounter [facility] Interventional [place] [address] [id number] Elizabeth Ryder MD Three [address] [address] 06/07/2025 5:00 PM CDT - 06/07/2025 5:20 PM CDT Surgery [facility] Interventional [place] [address] [id number] Elizabeth Ryder MD Three [address] [address] INJECTION TRIGGER POINT-cervivcal/th oracic 06/11/2025 2:40 PM CDT Office Visit [facility] Medical Group Orthopedic & Sports Medicine - [place] [address] [place] [address] Reynaldo Bunch MD [address] [place] [address] 07/13/2025 9:00 AM CDT Hospital Encounter [facility] Interventional [place] [address] [id number] Elizabeth Ryder MD Three [facility] [address] [place] [address] 07/13/2025 9:00 AM CDT - 07/13/2025 9:20 AM CDT Surgery [facility] Interventional [place] [address] [id number] Elizabeth Ryder MD Three [facility] [address] [place] [address] INJECTION EPIDURAL STEROID [id number] 07/13/2025 11:00 AM CDT Office Visit [facility] Multispecialty Care - [facility] 3 [facility] [address] [place] [address] Esau Hoff MD 3 [facility] [address] [place] [address] 09/13/2025 7:40 AM PALM GATHERER Office Visit [facility] Medical [facility] Family & Internal Medicine - [address] [address] Kylee Villanueva MD [address] [place] [address] [place] [address] [phone] Scheduled Procedures Name Priority Associated Diagnoses Date/Ti me INJECTION TRIGGER POINT Myofascial pain 06/07/2025 5:00 PM CDT INJECTION EPIDURAL STEROID CERVICAL Cervical radiculopathy 07/13/2025 9:00 AM CDT documented as of this encounter Visit Diagnoses Not on filedocumented in this encounter Additional Health Concerns Infection Onset Date Last Indicated Resolved Time COVID-19 Rule Out 12/13/2023 12/13/2023 12/13/2023 8:54 AM PALM GATHERER COVID-19 Rule Out 08/30/2024 08/30/2024 08/30/2024 8:14 AM PALM GATHERER COVID-19 Rule Out 11/03/2024 11/03/2024 11/03/2024 10:48 AM PALM GATHERER documented as of this encounter Care Teams Prototype Deicer Assembler Relationship Specialty [place] [address] [place] [address] PCP - General PHYSICIAN JOB COACH 02/03/21 06/06/23 [place] [address] [address] [place] [address] PCP - General FAMILY PRACTICE 06/07/23 [place] [address] [place] [address] NEUROLOGICAL SURGERY 11/24/21 documented as of this encounter
--- OUTSIDE RECORDS SUMMARY | 2025-05-30 00:40 | XMS_ITS | Encounter Summary ---
Author Organization [facility] Address [address] [place] [address] Care Team Providers Care Incinerator Attendant Name Role Phone Viv Hamm Primary Care Provider [phone] Alberto Avendano MD Unavailable [phone] Kylee Villanueva MD Primary Care Provider [phone] Encounter Details Date Type Department Care Team (Late st Contact Info) Description 09/24/2021 MyChart Message Enc [facility] Medical Group Family & Internal Medicine [facility] [address] [place] [address] [place] [id number] [place] [address] B12 Blood Test Social History Tobacco Use Types Packs/Day [...] Sex Assigned at Female 11/14/2024 2:54 PM GRILL ASSOCIATE Legal Sex Female 11:06 AM CDT Gender Identity Female 05/11/2025 1:56 PM CDT Sexual Orientation Not on file COVID-19 Exposure Response Date Recorded In the last month, have you been in contact with someone who was confirmed or suspected to have Coronavirus / COVID-19? No / Unsure 09/23/2021 8:30 AM GRILL ASSOCIATE documented as of this encounter Plan of Treatment Upcoming Encounters Date Type Department Care Team (Latest Contact Info) Description 06/07/2025 5:00 PM CDT Hospital Encounter [facility] [place] [address] [id number] Elizabeth Ryder MD Three [address] [address] 06/07/2025 5:00 PM CDT - 06/07/2025 5:20 PM CDT Surgery [facility] [place] [address] [id number] Elizabeth Ryder MD Three [address] [address] INJECTION TRIGGER POINT-cervivcal/th oracic 06/11/2025 2:40 PM CDT Office Visit [facility] Medical Group Orthopedic & Sports Medicine - [place] [address] [place] [address] Reynaldo Bunch MD [address] [place] [address] 07/13/2025 9:00 AM CDT Hospital Encounter [facility] Interventional [place] [address] [id number] Elizabeth Ryder MD Three [facility] [address] [place] [address] 07/13/2025 9:00 AM CDT - 07/13/2025 9:20 AM CDT Surgery [facility] Interventional [place] [address] [id number] Elizabeth Ryder MD Three [facility] [address] [place] [address] INJECTION EPIDURAL STEROID [id number] 07/13/2025 11:00 AM CDT Office Visit [facility] Multispecialty Care - [facility] 3 [facility]., [address] [place] [address] Esau Hoff MD 3 [facility] [address] [place] [address] 09/13/2025 7:40 AM GRILL ASSOCIATE Office Visit [facility] Medical [facility] Family & Internal Medicine - [address] [address] Kylee Villanueva MD [address] [place] [address] [place] [address] Scheduled Procedures Name Priority Associated Diagnoses Date/Ti me INJECTION TRIGGER POINT Myofascial pain 06/07/2025 5:00 PM CDT INJECTION EPIDURAL STEROID CERVICAL Cervical radiculopathy 07/13/2025 9:00 AM CDT documented as of this encounter Visit Diagnoses Not on filedocumented in this encounter Additional Health Concerns Infection Onset Date Last Indicated Resolved Time COVID-19 Rule Out 12/13/2023 12/13/2023 12/13/2023 8:54 AM GRILL ASSOCIATE COVID-19 Rule Out 08/30/2024 08/30/2024 08/30/2024 8:14 AM GRILL ASSOCIATE COVID-19 Rule Out 11/03/2024 11/03/2024 11/03/2024 10:48 AM GRILL ASSOCIATE documented as of this encounter Care Teams Incinerator Attendant Relationship Specialty [place] [address] [place] [address] PCP - General PHYSICIAN MARINE ENGINEERING TECHNICIANS 02/03/21 06/06/23 [place] [address] [address] [place] [address] PCP - General FAMILY PRACTICE 06/07/23 [place] [address] [place] [address] NEUROLOGICAL SURGERY 11/24/21 documented as of this encounter
--- OUTSIDE RECORDS SUMMARY | 2025-05-30 00:40 | XMS_ITS | Encounter Summary ---
Author Organization [facility] Address [address] [place] [address] Care Team Providers Care Mail Handler Name Role Phone Viv Hamm Primary Care Provider [phone] Alberto Avendano MD Unavailable [phone] Kylee Villanueva MD Primary Care Provider [phone] Encounter Details Date Type Department Care Team (Late st Contact Info) Description 08/20/2021 Clever Cloud Computinghart Message Enc [facility] Medical Group Family & Internal Medicine [facility] [address] [place] [address] Viv [place] [id number] [place] [address] RE: Test Results Social History Tobacco [...] Sex Assigned at Female 11/14/2024 2:54 PM SENIOR STORAGE ENGINEER Legal Sex Female 11:06 AM CDT Gender Identity Female 05/11/2025 1:56 PM CDT Sexual Orientation Not on file COVID-19 Exposure Response Date Recorded In the last month, have you been in contact with someone who was confirmed or suspected to have Coronavirus / COVID-19? No / Unsure 08/19/2021 4:23 PM CDT documented as of this encounter Plan of Treatment Upcoming Encounters Date Type Department Care Team (Latest Contact Info) Description 06/07/2025 5:00 PM CDT Hospital Encounter [facility] Interventional [place] [address] [id number] Elizabeth Ryder MD Three [address] [address] 06/07/2025 5:00 PM CDT - 06/07/2025 5:20 PM CDT Surgery [facility] [place] [address] [id number] Elizabeth Ryder MD Three [address] [address] INJECTION TRIGGER POINT-cervivcal/th oracic 06/11/2025 2:40 PM CDT Office Visit [facility] Medical Group Orthopedic & Sports Medicine - [place] [address] [place] [address] Reynaldo Bunch MD [address] [place] [address] 07/13/2025 9:00 AM CDT Hospital Encounter [facility] [place] [address] [id number] Elizabeth Ryder MD Three [facility] [address] [place] [address] 07/13/2025 9:00 AM CDT - 07/13/2025 9:20 AM CDT Surgery [facility] Interventional [place] [address] [id number] Elizabeth Ryder MD Three [facility] [address] [place] [address] INJECTION EPIDURAL STEROID [id number] 07/13/2025 11:00 AM CDT Office Visit [facility] Multispecialty Care - [facility] 3 [facility] [address] [place] [address] Esau Hoff MD 3 [facility] [address] [place] [address] 09/13/2025 7:40 AM SENIOR STORAGE ENGINEER Office Visit [facility] Medical [facility] Family & Internal Medicine - [address] [address] Kylee Villanueva MD [address] [place] [address] [place] [address] [phone] Scheduled Procedures Name Priority Associated Diagnoses Date/Ti me INJECTION TRIGGER POINT Myofascial pain 06/07/2025 5:00 PM CDT INJECTION EPIDURAL STEROID CERVICAL Cervical radiculopathy 07/13/2025 9:00 AM CDT documented as of this encounter Visit Diagnoses Not on filedocumented in this encounter Additional Health Concerns Infection Onset Date Last Indicated Resolved Time COVID-19 Rule Out 12/13/2023 12/13/2023 12/13/2023 8:54 AM SENIOR STORAGE ENGINEER COVID-19 Rule Out 08/30/2024 08/30/2024 08/30/2024 8:14 AM SENIOR STORAGE ENGINEER COVID-19 Rule Out 11/03/2024 11/03/2024 11/03/2024 10:48 AM SENIOR STORAGE ENGINEER documented as of this encounter Care Teams Mail Handler Relationship Specialty [place] [address] [place] [address] PCP - General PHYSICIAN WINDOWS DESKTOP SUPPORT 02/03/21 06/06/23 [place] [address] [address] [place] [address] PCP - General FAMILY PRACTICE 06/07/23 [place] [address] [place] [address] NEUROLOGICAL SURGERY 11/24/21 documented as of this encounter
--- OUTSIDE RECORDS SUMMARY | 2025-05-30 00:40 | XMS_ITS | Encounter Summary ---
Author Organization [facility] Address [address] [place] [address] Care Team Providers Care Clam Dredger Name Role Phone Viv Hamm Primary Care Provider [phone] Alberto Avendano MD Unavailable [phone] Kylee Villanueva MD Primary Care Provider Encounter Details Date Type Department Care Team (Late st Contact Info) Description 06/09/2021 MyChart Message Enc [facility] Medical Group Family & Internal Medicine [facility] [address] [place] [address] Viv [place] [id number] [place] [address] RE: Test Results Social History Tobacco [...] Sex Assigned at Female 11/14/2024 2:54 PM APPLICATION CHEMIST Legal Sex Female 11:06 AM CDT Gender [...] Description 06/07/2025 5:00 PM CDT Hospital Encounter [facility] Interventional [place] [address] [id number] Elizabeth Ryder MD Three [address] [address] 06/07/2025 5:00 PM CDT - 06/07/2025 5:20 PM CDT Surgery [facility] [place] [address] [id number] Elizabeth Ryder MD Three [address] [address] INJECTION TRIGGER POINT-cervivcal/th oracic 06/11/2025 2:40 PM CDT Office Visit [facility] Medical Group Orthopedic & Sports Medicine - [place] [address] [place] [address] Reynaldo Bunch MD [address] [place] [address] 07/13/2025 9:00 AM CDT Hospital Encounter [facility] [place] [address] [id number] Elizabeth Ryder MD Three [facility] [address] [place] [address] 07/13/2025 9:00 AM CDT - 07/13/2025 9:20 AM CDT Surgery [facility] Interventional [place] [address] [id number] Elizabeth Ryder MD Three [facility] [address] [place] [address] INJECTION EPIDURAL STEROID [id number] 07/13/2025 11:00 AM CDT Office Visit [facility] Multispecialty Care - [facility] 3 [facility] [address] [place] [address] Esau Hoff MD 3 [facility] [address] [place] [address] 09/13/2025 7:40 AM APPLICATION CHEMIST Office Visit [facility] Medical [facility] Family & Internal Medicine - [address] [address] Kylee Villanueva MD [address] [place] [address] [place] [address] [phone] Scheduled Procedures Name Priority Associated Diagnoses Date/Ti me INJECTION TRIGGER POINT Myofascial pain 06/07/2025 5:00 PM CDT INJECTION EPIDURAL STEROID CERVICAL Cervical radiculopathy 07/13/2025 9:00 AM CDT documented as of this encounter Visit Diagnoses Not on filedocumented in this encounter Additional Health Concerns Infection Onset Date Last Indicated Resolved Time COVID-19 Rule Out 12/13/2023 12/13/2023 12/13/2023 8:54 AM APPLICATION CHEMIST COVID-19 Rule Out 08/30/2024 08/30/2024 08/30/2024 8:14 AM APPLICATION CHEMIST COVID-19 Rule Out 11/03/2024 11/03/2024 11/03/2024 10:48 AM APPLICATION CHEMIST documented as of this encounter Care Teams Clam Dredger Relationship Specialty [place] [address] [place] [address] PCP - General PHYSICIAN SENIOR IT BUSINESS ANALYST 02/03/21 06/06/23 [place] [address] [address] [place] [address] PCP - General FAMILY PRACTICE 06/07/23 [place] [address] [place] [address] NEUROLOGICAL SURGERY 11/24/21 documented as of this encounter
--- OUTSIDE RECORDS SUMMARY | 2025-05-30 00:41 | XMS_ITS | Encounter Summary ---
Author Organization [facility] Address [address] [place] [address] Care Team Providers Care Mushroom Spawn Maker Name Role Phone Alberto Avendano MD Unavailable [phone] Kylee Villanueva MD Primary Care Provider [phone] Encounter Details Date Type Department Care Team (Late st Contact Info) Description 12/12/2024 Think Big Analyticst Message Enc [facility] Medical Group Orthopedic & Sports Medicine - [place] [address] [place] [address] [phone] Reynaldo Bunch MD [address] [place] [address] Update Social History Tobacco Use Types Packs/Day [...] Date Recorded Patient Health Questionnaire-2 Score 0 12/11/2024 Education Answer Date Recorded What is the highest level of school you have completed or the highest degree you have received? Bachelor's degree (e.g., BA, AB, BS) 05/06/2022 Comments No Sex and Gender Information Value Date Recorded Sex Assigned at Female 11/14/2024 2:54 PM WEB CONTENT & SOCIAL MEDIA MANAGER Legal Sex Female 11:06 AM CDT Gender Identity Female 05/11/2025 1:56 PM CDT Sexual Orientation Not on file documented as of this encounter Plan of Treatment Upcoming Encounters Date Type Department Care Team (Latest Contact Info) Description 06/07/2025 5:00 PM CDT Hospital Encounter [facility] [place] [address] [id number] Elizabeth Ryder MD Three [address] [address] 06/07/2025 5:00 PM CDT - 06/07/2025 5:20 PM CDT Surgery [facility] [place]ventional [place] [address] [id number] Elizabeth Ryder MD Three [address] [address] INJECTION TRIGGER POINT-cervivcal/th oracic 06/11/2025 2:40 PM CDT Office Visit [facility] Medical Group Orthopedic & Sports Medicine - [place] [address] [place] [address] Reynaldo Bunch MD [address] [place] [address] 07/13/2025 9:00 AM CDT Hospital Encounter [facility] [place]ventional [place] [address] [id number] Elizabeth Ryder MD Three [address] [address] 07/13/2025 9:00 AM CDT - 07/13/2025 9:20 AM CDT Surgery [facility] Interventional Pain [place] [address] [id number] Elizabeth Ryder MD Three [facility] [address] [place] [address] INJECTION EPIDURAL STEROID [id number] 07/13/2025 11:00 AM CDT Office Visit [facility] Multispecialty Care - [facility] 3 [facility] [address] [place] [address] Esau Hoff MD 3 [facility] [address] [place] [address] 09/13/2025 7:40 AM WEB CONTENT & SOCIAL MEDIA MANAGER Office Visit [facility] Medical [facility] Family & Internal Medicine [address] [address] [place] [address] [facility] [address] [place] [address] Scheduled Procedures Name Priority Associated Diagnoses Date/Ti me INJECTION TRIGGER POINT Myofascial pain 06/07/2025 5:00 PM CDT INJECTION EPIDURAL STEROID CERVICAL Cervical radiculopathy 07/13/2025 9:00 AM CDT documented as of this encounter Visit Diagnoses Not on filedocumented in this encounter Additional Health Concerns Assessment Noted Time PHQ-9 Depression Total Score: 2 12/11/19 25 1:50 PM WEB CONTENT & SOCIAL MEDIA MANAGER documented as of this encounter Care Teams Mushroom Spawn Maker Relationship Specialty Start [place] [address] [facility]. [address] [place] [address] PCP - General FAMILY PRACTICE 06/07/23 Alberto Avendano MD NEUROLOGICAL SURGERY 11/24/21 documented as of this encounter
--- OUTSIDE RECORDS SUMMARY | 2025-05-30 00:41 | XMS_ITS | Encounter Summary ---
Author Organization [facility] Address [address] [place] [address] Care Team Providers Care Economic Analyst Name Role Phone Viv Hamm Primary Care Provider [phone] Alberto Avendano MD Unavailable [phone] Kylee Villanueva MD Primary Care Provider [phone] Reason for Referral * Surgical (Routine) - Closed Specialty Diagnoses / Procedures Referred By Ramonita franco Referred To Contact Diagnoses Lumbar radiculopathy Procedures Case request operating room: INJECTION EPIDURAL TRANSFORAMINAL L6-S1 Concha Albert NP 3 [facility] [address] [place] [address] Phone: tel: [phone] fax: Referral ID Status Reason Start Date Expiration Date Visits Re quested Visits Authorized [id number] Closed 10/06/2022 10/06/2023 1 1 ER/FOLDER Encounter Details Date Type Department Care Team (Late st Contact Info) Description 10/06/2022 Prep for Procedure [facility] [place] [id number] Concha Albert NP 3 [facility] [address] [place] [phone] (Work) Social History Tobacco Use Types Packs/Day Years [...] please move on to questions 3-9 0 04/14/2022 Education Answer Date Recorded What is the highest level of school you have completed or the highest degree you have received? Bachelor's degree (e.g., BA, AB, BS) 05/06/2022 Comments No Sex and Gender Information Value Date Recorded Sex Assigned at Female 11/14/2024 2:54 PM FEEDER/FOLDER Legal Sex Female 11:06 AM CDT Gender Identity Female 05/11/2025 1:56 PM CDT Sexual Orientation Not on file COVID-19 Exposure Response Date Recorded In the last 10 days, have yo u been in contact with someone who was confirmed or suspected to have Coronavirus/COVID-19? No / Unsure 10/06/2022 7:22 AM FEEDER/FOLDER documented as of this encounter Functional Status * Calculated C-SSRS Risk Score (Lifetime/Recent) Answer Date of Assessment Author Status No Risk Indicated 10/06/2022 7:33 AM Monica López RN Active * Perry Suicide Severity Rating Scale (Screener/Recent Self-Report) Question Answer Date of Assessment Author Status 1. Wish to be (Past 1 Month) No 10/06/2022 7:33 AM Allyson López RN Ac tive 2. Non-Specific Active Suicidal Thoughts (Past 1 Month) No 10/06/2022 7:33 AM Allyson López RN Ac tive 6. Suicidal Behavior (Lifetime) No 10/06/2022 7:33 AM Allyson López RN Ac tive documented as of this encounter Plan of Treatment Upcoming Encounters Date Type Department Care Team (Latest Contact Info) Description 06/07/2025 5:00 PM CDT Hospital Encounter [facility] [place] [place] [address] [id number] Elizabeth Ryder MD Three [address] [address] 06/07/2025 5:00 PM CDT - 06/07/2025 5:20 PM CDT Surgery [facility] [place] [address] [phone] Elizabeth Ryder MD [address] [address] INJECTION TRIGGER POINT-cervivcal/th oracic 06/11/2025 2:40 PM CDT Office Visit [facility] Medical Group Orthopedic & Sports Medicine - [place] [address] [place] [address] Reynaldo Bunch MD [address] [place] [address] 07/13/2025 9:00 AM CDT Hospital Encounter [facility] [place] [address] [phone] Elizabeth Ryder MD Three [address] [address] 07/13/2025 9:00 AM CDT - 07/13/2025 9:20 AM CDT Surgery [facility] [place] [address] [id number] Elizabeth Ryder MD Three [facility] [address] [place] [address] INJECTION EPIDURAL STEROID [id number] 07/13/2025 11:00 AM CDT Office Visit [facility]pecialty Care - [facility] 3 [facility] [address] [place] [address] Esau Hoff MD 3 [facility] [address] [place] [address] 09/13/2025 7:40 AM FEEDER/FOLDER Office Visit [facility] Family & Internal Medicine [address] [address] Kylee Villanueva MD [address] [place] [address] [place] [address] [phone] Scheduled Orders Name Type Priority Associated Diagnoses Orde r Schedule Case request operating room: INJECTION EPIDURAL TRANSFORAMINAL L6-S1 Case Request Routine Lumbar radiculopathy Once for 1 Occurrences starting 10/06/2022 until 10/06/2022 Scheduled Procedures Name Priority Associated Diagnoses Date/Ti me INJECTION TRIGGER POINT Myofascial pain 06/07/2025 5:00 PM CDT INJECTION EPIDURAL STEROID CERVICAL Cervical radiculopathy 07/13/2025 9:00 AM CDT documented as of this encounter Visit Diagnoses Diagnosis Lumbar radiculopathy- Primary Thoracic or lumbosacral neuritis or radiculitis, unspecified Myofascial pain Mylagia and myositis, unspecified Cervical radiculopathy Brachial neuritis or radiculitis nos documented in this encounter Additional Health Concerns Infection Onset Date Last Indicated Resolved Time COVID-19 Rule Out 12/13/2023 12/13/2023 12/13/2023 8:54 AM FEEDER/FOLDER COVID-19 Rule Out 08/30/2024 08/30/2024 08/30/2024 8:14 AM FEEDER/FOLDER COVID-19 Rule Out 11/03/2024 11/03/2024 11/03/2024 10:48 AM FEEDER/FOLDER documented as of this encounter Care Teams Economic Analyst Relationship Specialty [place] [address] [place] [address] PCP - General PHYSICIAN PEDIATRIC MEDICAL ASSISTANT 02/03/21 06/06/23 [place] [address] [address] [place] [address] PCP - General FAMILY PRACTICE 06/07/23 [place] [address] [place] [address] NEUROLOGICAL SURGERY 11/24/21 documented as of this encounter
--- OUTSIDE RECORDS SUMMARY | 2025-05-30 00:41 | XMS_ITS | Encounter Summary ---
Author Organization [facility] Address [facility] [place] [address] Care Team Providers Care Bead Wrapper Name Role Phone Viv Hamm Primary Care Provider [phone] Alberto Avendano MD Unavailable [phone] Kylee Villanueva MD Primary Care Provider [phone] Encounter Details Date Type Department Care Team (Late st Contact Info) Description 03/17/2021 [employer] Message Enc [facility] Medical Group General Surgery [address], [address] [place] [address] Tracy Godoy MD [address] [address] Other Social History Tobacco Use Types Packs/Day Years [...] Sex Assigned at Female 11/14/2024 2:54 PM SALES ACCOUNT MANAGER Legal Sex Female 11:06 AM CDT Gender Identity Female 05/11/2025 1:56 PM CDT Sexual Orientation Not on file COVID-19 Exposure Response Date Recorded In the last month, have you been in contact with someone who was confirmed or suspected to have Coronavirus / COVID-19? No / Unsure 03/12/2021 3:49 PM CDT documented as of this encounter Plan of Treatment Upcoming Encounters Date Type Department Care Team (Latest Contact Info) Description 06/07/2025 5:00 PM CDT Hospital Encounter [facility] [place] [address] [phone] Elizabeth Ryder MD Three [address] [address] 06/07/2025 5:00 PM CDT - 06/07/2025 5:20 PM CDT Surgery [facility] Interventional [place] [address] [id number] Elizabeth Ryder MD Three [address] [address] INJECTION TRIGGER POINT-cervivcal/th oracic 06/11/2025 2:40 PM CDT Office Visit [facility] Medical Group Orthopedic & Sports Medicine - [place] [address] [place] [address] Reynaldo Bunch MD [address] [place] [address] 07/13/2025 9:00 AM CDT Hospital Encounter [facility] [place]ventional [place] [address] [id number] Elizabeth Ryder MD Three [facility] [address] [place] [address] 07/13/2025 9:00 AM CDT - 07/13/2025 9:20 AM CDT Surgery [facility] Inter[facility] [place] [address] [id number] Elizabeth Ryder MD Three [facility] [address] [place] [address] INJECTION EPIDURAL STEROID [id number] 07/13/2025 11:00 AM CDT Office Visit [facility] Multispecialty Care - [facility] 3 [facility] [address] [place] [address] Esau Hoff MD 3 [facility] [address] [place] [address] 09/13/2025 7:40 AM SALES ACCOUNT MANAGER Office Visit [facility] Medical [facility] Family & Internal Medicine - [address] [address] Kylee Villanueva MD [address] [place] [address] [place] [phone] Scheduled Procedures Name Priority Associated Diagnoses Date/Ti me INJECTION TRIGGER POINT Myofascial pain 06/07/2025 5:00 PM CDT INJECTION EPIDURAL STEROID CERVICAL Cervical radiculopathy 07/13/2025 9:00 AM CDT documented as of this encounter Visit Diagnoses Not on filedocumented in this encounter Additional Health Concerns Infection Onset Date Last Indicated Resolved Time COVID-19 Rule Out 12/13/2023 12/13/2023 12/13/2023 8:54 AM SALES ACCOUNT MANAGER COVID-19 Rule Out 08/30/2024 08/30/2024 08/30/2024 8:14 AM SALES ACCOUNT MANAGER COVID-19 Rule Out 11/03/2024 11/03/2024 11/03/2024 10:48 AM SALES ACCOUNT MANAGER documented as of this encounter Care Teams Bead Wrapper Relationship Specialty [place] [address] [place] [address] PCP - General PHYSICIAN CLINICAL ALLERGIST 02/03/21 06/06/23 [place] [address] [address] [place] [address] PCP - General FAMILY PRACTICE 06/07/23 [place] [address] [place] [address] NEUROLOGICAL SURGERY 11/24/21 documented as of this encounter
--- OUTSIDE RECORDS SUMMARY | 2025-05-30 00:41 | XMS_ITS | Encounter Summary ---
Author Organization [facility] Address [facility]ly [facility] [place] [address] Care Team Providers Care Desizing Pad Operator Name Role Phone Viv Hamm Primary Care Provider [phone] Alberto Avendano MD Unavailable [phone] Kylee Villanueva MD Primary Care Provider [phone] Encounter Details Date Type Department Care Team (Late st Contact Info) Description 03/14/2021 Prep for Procedure [facility] Medical [facility] General Surgery [address], [address] [place] [address] Tracy Godoy MD [address] [address] Social History Tobacco Use Types Packs/Day Years [...] Assigned at Female 11/14/2024 2:54 PM COMMERCIAL DEVELOPMENT MANAGER Legal Sex Female 11:06 AM CDT [...] [facility] [place] [address] [phone] Elizabeth Ryder MD Three [address] [address] 06/07/2025 5:00 PM CDT - 06/07/2025 5:20 PM CDT Surgery [facility] [place] [address] [id number] Elizabeth Ryder MD [address] [address] INJECTION TRIGGER POINT-cervivcal/th oracic 06/11/2025 2:40 PM CDT Office Visit [facility] Medical Group Orthopedic & Sports Medicine - [place] [address] [place] [address] Reynaldo Bunch MD [address] [place] [address] 07/13/2025 9:00 AM CDT Hospital Encounter [facility] Interventional [place] [address] [id number] Elizabeth Ryder MD Three [facility] [address] [place] [address] 07/13/2025 9:00 AM CDT - 07/13/2025 9:20 AM CDT Surgery [facility] [place] [address] [id number] Elizabeth Ryder MD Three [facility] [address] [place] [address] INJECTION EPIDURAL STEROID [id number] 07/13/2025 11:00 AM CDT Office Visit [facility] Multispecialty Care - [facility] 3 [facility], [address] [place] [address] Esau Hoff MD 3 [facility] [address] [place] [address] 09/13/2025 7:40 AM COMMERCIAL DEVELOPMENT MANAGER Office Visit [facility] Medical [facility] Family & Internal Medicine [address] [address] Kylee Villanueva MD [address] [place] [address] [place] [address] Scheduled Procedures Name Priority Associated Diagnoses Date/Ti me INJECTION TRIGGER POINT Myofascial pain 06/07/2025 5:00 PM CDT INJECTION EPIDURAL STEROID CERVICAL Cervical radiculopathy 07/13/2025 9:00 AM CDT documented as of this encounter Visit Diagnoses Diagnosis GERD (gastroesophageal reflux disease)- Primary Esophageal reflux Encounter for screening colonoscopy Special screening for malignant neoplasms, colon Myofascial pain Mylagia and myositis, unspecified Cervical radiculopathy Brachial neuritis or radiculitis nos documented in this encounter Additional Health Concerns Infection Onset Date Last Indicated Resolved Time COVID-19 Rule Out 12/13/2023 12/13/2023 12/13/2023 8:54 AM COMMERCIAL DEVELOPMENT MANAGER COVID-19 Rule Out 08/30/2024 08/30/2024 08/30/2024 8:14 AM COMMERCIAL DEVELOPMENT MANAGER COVID-19 Rule Out 11/03/2024 11/03/2024 11/03/2024 10:48 AM COMMERCIAL DEVELOPMENT MANAGER documented as of this encounter Care Teams Desizing Pad Operator Relationship Specialty [place] [address] [place] [address] PCP - General PHYSICIAN BARTENDER HELPER 02/03/21 06/06/23 [place] [address] [address] [place] [address] PCP - General FAMILY PRACTICE 06/07/23 [place] [address] [place] [address] NEUROLOGICAL SURGERY 11/24/21 documented as of this encounter
--- OUTSIDE RECORDS SUMMARY | 2025-05-30 00:41 | XMS_ITS | Encounter Summary ---
Author Organization [facility] Address [facility]ly [facility], [facility] [place] [address] Care Team Providers Care Garage Door Opener Installer Name Role Phone Viv Hamm Primary Care Provider [phone] Alberto Avendano MD Unavailable [phone] Kylee Villanueva MD Primary Care Provider [phone] Encounter Details Date Type Department Care Team (Late st Contact Info) Description 04/29/2021 MyChart Message Enc [facility] Medical Group General Surgery [address], [address] [place] [address] Tracy Godoy MD [address] [address] Question Social History Tobacco Use Types Packs/Day Years [...] Sex Assigned at Female 11/14/2024 2:54 PM DROP WIRE OPERATOR Legal Sex Female 11:06 AM CDT Gender Identity Female 05/11/2025 1:56 PM CDT Sexual Orientation Not on file documented as of this encounter Plan of Treatment Upcoming Encounters Date Type Department Care Team (Latest Contact Info) Description 06/07/2025 5:00 PM CDT Hospital Encounter [facility] Interventional [place] [address] [phone] Elizabeth Ryder MD Three [facility] [address] [place] [address] 06/07/2025 5:00 PM CDT - 06/07/2025 5:20 PM CDT Surgery [facility] [place] [address] [id number] Elizabeth Ryder MD Three [facility] [address] [place] [address] INJECTION TRIGGER POINT-cervivcal/th oracic 06/11/2025 2:40 PM CDT Office Visit [facility] Medical Group Orthopedic & Sports Medicine - [place] [address] [place] [address] Reynaldo Bunch MD [address] [place] [address] 07/13/2025 9:00 AM CDT Hospital Encounter [facility] [place]ventional [place] [address] [id number] Elizabeth Ryder MD Three [facility] [address] [place] [address] 07/13/2025 9:00 AM CDT - 07/13/2025 9:20 AM CDT Surgery [facility] Inter[facility] [place] [address] [id number] Elizabeth Ryder MD Three [facility] [address] [place] [address] INJECTION EPIDURAL STEROID [id number] 07/13/2025 11:00 AM CDT Office Visit [facility]pecialty Care - [facility] [address] [facility] [address] [place] [address] Esau Hoff MD 3 [facility] [address] [place] [address] 09/13/2025 7:40 AM DROP WIRE OPERATOR Office Visit [facility] Medical Group Family & Internal Medicine - [address] [address] Kylee Villanueva MD [address] [place] [address] [place] [phone] Scheduled Procedures Name Priority Associated Diagnoses Date/Ti me INJECTION TRIGGER POINT Myofascial pain 06/07/2025 5:00 PM CDT INJECTION EPIDURAL STEROID CERVICAL Cervical radiculopathy 07/13/2025 9:00 AM CDT documented as of this encounter Visit Diagnoses Not on filedocumented in this encounter Additional Health Concerns Infection Onset Date Last Indicated Resolved Time COVID-19 Rule Out 12/13/2023 12/13/2023 12/13/2023 8:54 AM DROP WIRE OPERATOR COVID-19 Rule Out 08/30/2024 08/30/2024 08/30/2024 8:14 AM DROP WIRE OPERATOR COVID-19 Rule Out 11/03/2024 11/03/2024 11/03/2024 10:48 AM DROP WIRE OPERATOR documented as of this encounter Care Teams Garage Door Opener Installer Relationship Specialty [place] [address] [place] [address] PCP - General PHYSICIAN PHYSICIAN/ALLERGY/IMMUNOLOGY 02/03/21 06/06/23 [place] [address] [address] [place] [address] PCP - General FAMILY PRACTICE 06/07/23 [place] [address] [place] [address] NEUROLOGICAL SURGERY 11/24/21 documented as of this encounter
--- OUTSIDE RECORDS SUMMARY | 2025-05-30 00:41 | XMS_ITS | Patient Health Record ---
Author Organization [employer] [place] ([address]) Address [address] [place] [address] Care Team Providers Care Judge Clerk Name Role Phone Kylee Villanueva Primary Care Provider UnavailAraceli Thurston Unavailable [phone] Viv Hamm Unavailable Unavailable Allergies Allergen (clinical drug ingredient) Drug/Non Drug Allergy documented on EMR Reaction Allergy Type Onset Date Status Sulfamethoxazole rash Drug Allergy Active clindamycin Clindamycin Unknown Drug Allergy Act martha Results Component Value Reference Range Notes TRYPTASE Reviewed date:09/14/2024 02:36:14 PM Interpretation:Normal Performing Lab:[facility], [address], [place], [address] Dayne Tristan M.D.,PhD Notes/Report: NON-FASTING; NON-FASTING; NON-FASTING TRYPTASE 4.3 <11.0 mcg/L The Tryptase test, fluorescent enzyme immunoassay (FEIA), measures both the Alpha and Beta forms of Tryptase. Measuring both forms of Tryptase increases sensitivity for the diagnosis of mastocytosis, and mast cell degranulation as a cause of anaphylaxis. TSH W/REFLEX TO FT4 Reviewed date:09/14/2024 02:35:59 PM Interpretation:Normal Performing Lab:[facility], [address] [place], [address] Akbar Gore MD Notes/Report: NON-FASTING; NON-FASTING; NON-FASTING TSH W/REFLEX TO FT4 1.08 Reference Range > or = 20 Years 0.40-4.50 Ranges First trimester 0.26-2.66 Second trimester 0.55-2.73 Third trimester 0.43-2.91 CBC (INCLUDES DIFF/PLT) Reviewed date:09/14/2024 02:37:42 PM Interpretation:Normal Performing Lab:[facility], [address] [place], [address] Akbar Gore MD Notes/Report: NON-FASTING; NON-FASTING; NON-FASTING WHITE BLOOD CELL COUNT 5.8 3.8-10.8 Thousand/ uL RED BLOOD CELL COUNT 4.66 3.80-5.10 Million/uL HEMOGLOBIN 14.8 11.7-15.5 g/dL HEMATOCRIT 44.7 35.0-45.0 % MCV 95.9 80.0-100.0 fL MCH 31.8 27.0-33.0 pg MCHC 33.1 32.0-36.0 g/dL For adults, a slight decrease in the calculated MCHC value (in the range of 30 to 32 g/dL) is most likely not clinically significant; however, it should be interpreted with caution in correlation with other red cell parameters and the patient's clinical condition. RDW 13.3 11.0-15.0 % PLATELET COUNT 252 140-400 Thousand/uL MPV 9.8 7.5-12.5 fL ABSOLUTE NEUTROPHILS 3596 1679-4960 cells/uL ABSOLUTE LYMPHOCYTES 9119 788-9110 cells/uL ABSOLUTE MONOCYTES 371 200-950 cells/uL ABSOLUTE EOSINOPHILS 58 15-500 cells/uL ABSOLUTE BASOPHILS 29 0-200 cells/uL NEUTROPHILS 62 LYMPHOCYTES 30.1 MONOCYTES 6.4 EOSINOPHILS 1.0 BASOPHILS 0.5 SED RATE BY MODIFIED NANERG ORLANDO Reviewed date:09/14/2024 02:35:46 PM Interpretation:Normal Performing Lab:[facility], [address] [place], [address] Akbar Gore MD Notes/Report: NON-FASTING; NON-FASTING; NON-FASTING SED RATE BY MODIFIED MATTHEW 17 < OR = 30 mm/h Reason For Referral No Information Medications Medication SIG (Take, Route, Frequency, Duration) Notes Start Date End Date Status Flonase Allergy Relief 50 MCG/ACT 2 spray(s) in each nostril once a day; Duration: 90 days Active Singulair 10 MG TAKE 1 TABLET ONCE DAILY; Duration: 90 Active Albuterol Sulfate HFA 108 (90 Base) MCG/ACT 2-4 puffs orally every 4-6 hours; Duration: 30 day(s) Not-Taking Famotidine 40 MG 1 tablet Orally Twice a day; Duration: 30 days Active EPINEPHrine 0.3 MG/0.3ML as directed Injection as needed; Duration: 30 days 10/04/2024 Active Levocetirizine Dihydrochloride 5 MG 2 tabs orally twice a day; Duration: 90 days Active Montelukast Sodium 10 MG 1 tablet Orally Once a day; Duration: 90 days Active Gabapentin *Please review and pick correct strength-formula tion from [employer] options. If intended option is not shown, discontinue and re-order from Quick Search* Active Pepcid 40 MG 1 tab(s) orally once a day (at bedtime) Active Benazepril-hydroCHLOR Othiazide 10-12.5 MG 2 tablets Orally Once a day *Please review and pick correct strength-formula tion from [employer] options. If intended option is not shown, discontinue and re-order from Quick Search* Active tiZANidine HCl 2 MG 2 tab(s) orally every 8 hours; Duration: 30 day(s) Active Omeprazole 40 MG 1 cap(s) orally once a day Active NASAL WASHES N/A as directed intranasally as needed; Duration: 30 Active Immunizations Vaccine Route Administration Date Status Comme nts NOC PedvaxHIB IM Intramuscular 10/21/2021 Administered Influenza Unknown 07/26/2018 Administered Portal Information Influenza Unknown 11/09/2018 Others Pneumovax 23 IM Intramuscular 10/21/2021 Administered NOC Fluzone Quadrivalent Unknown 07/26/2018 Administered Flucelvax Unknown 10/02/2019 Administered COVID-19 (Moderna) Unknown 12/11/2020 Administered COVID-19 (Moderna) Unknown 01/13/2021 Administered Social History Tobacco Use: Social History Observation Description Date Details (start date - stop date) Never Smoker NA - NA Smoking Smart Form: Question Answer Notes Are you a: never smoker Problems Problem Type SNOMED Code ICD Code Onset Dates Problem Status W/U Status Risk Notes Problem Shortness of breath (304514647) Shortness of breath (R06.02) Active confirmed Problem Wheezing (49152866) Wheezing (R06.2) Active confirmed Problem Idiopathic urticaria (80858188) Idiopathic urticaria (L50.1) Active confirmed Problem Common cold (90716687) Acute nasopharyngitis [common cold] (J00) Active confirmed Problem Allergic rhinitis (62387249) Other allergic rhinitis (J30.89) Active confirmed Problem Chronic sinusitis (87597617) Chronic sinusitis, unspecified (J32.9) Active confirmed Problem Dermatitis (284014430) Dermatitis, unspecified (L30.9) Active confirmed Problem Food allergy (499082352) Allergy to other foods (Z91.018) Active confirmed Problem Allergic rhinitis caused by pollen (disorder) (59524158) Allergic rhinitis due to pollen (J30.1) Active confirmed Problem Allergic rhinitis caused by animal hair and dander (601832791569570 ) Allergic rhinitis due to animal (cat) (dog) hair and dander (J30.81) Active confirmed Problem Chronic sinusitis (89080898) Chronic sinusitis, unspecified (J32.9) Active confirmed Problem Allergy to penicillin (99195015) Allergy status to penicillin (Z88.0) Active confirmed Problem Allergy to sulfonamides (55295597) Allergy status to sulfonamides status (Z88.2) Active confirmed Problem Allergy to sulfonamides (75905400) Allergy status to sulfonamides (Z88.2) Active confirmed Vital Signs Oximetry 99 % 10/04/2024 Blood pressure diastolic 79 mm Hg 10/04/2024 Height 56 in 10/04/2024 Blood pressure systolic 137 mm Hg 10/04/2024 Weight 177.8 lbs 10/04/2024 BMI 39.86 kg/m2 10/04/2024 Encounters Encounter Location Date Provider Diagnosis [facility] [address] [address] 07/12/2024 Araceli Bishop Chronic sinusitis, unspecified J32.9 ; Allergic rhinitis due to pollen J30.1 ; Other diseases of vocal cords J38.3 ; Allergy to other foods Z91.018 ; Allergic rhinitis due to animal (cat) (dog) hair and dander J30.81 ; Other allergic rhinitis J30.89 and Allergy status to sulfonamides Z88.2 [facility] [address] [place], [place] [address] [address] [address] 09/06/2024 Araceli Bishop Chronic sinusitis, unspecified J32.9 ; Idiopathic urticaria L50.1 ; Allergic rhinitis due to pollen J30.1 ; Other diseases of vocal cords J38.3 ; Allergy to other foods Z91.018 ; Allergic rhinitis due to animal (cat) (dog) hair and dander J30.81 ; Other allergic rhinitis J30.89 and Allergy status to sulfonamides Z88.2 [facility] [address] [place] [address] [facility] [address] [address] 10/04/2024 Araceli Bsihop Chronic sinusitis, unspecified J32.9 ; Idiopathic urticaria L50.1 ; Allergic rhinitis due to pollen J30.1 ; Other diseases of vocal cords J38.3 ; Allergy to other foods Z91.018 ; Allergic rhinitis due to animal (cat) (dog) hair and dander J30.81 ; Other allergic rhinitis J30.89 and Allergy status to sulfonamides Z88.2 [facility] [address] [place], [place] [address] [address] [address] 05/31/2024 Araceli Bishop Allergic rhinitis du e to pollen J30.[address] [facility] [address] [address] 06/21/2024 Araceli Bishop [address] [facility] [address] [address] 07/06/2024 Araceli Bishop Allergic rhinitis du e to pollen J30.1 [facility] [address] [place] [address] 09/04/2024 Araceli Bishop [facility] [address] [place] [address] 10/04/2024 Araceli Bishop [facility] [address] [place] [address] 10/10/2024 Araceli Bishop Allergic rhinitis du e to pollen J30.1 and Idiopathic urticaria L50.1 [facility] [address] [place] [address] 03/19/2025 Araceli Bishop [address] [address] 06/21/2024 Araceli Bishop [address] [address] 08/29/2024 Araceli Bishop [address] [address] 09/07/2024 Araceli Bishop [address] [address] 09/11/2024 Araceli Bishop [address] [address] 09/24/2024 Araceli Bishop [address] [address] 11/08/2024 Araceli Bishop Assessments Encounter Date Diagnosis (ICD Code) Assessment Notes Treatment Notes Treatment Clinical Notes Section Notes 05/31/2024 Allergic rhinitis due to pollen (ICD-10 - J30.1) 07/06/2024 Allergic rhinitis due to pollen (ICD-10 - J30.1) 07/12/2024 Allergic rhinitis due to pollen (ICD-10 - J30.1) Andres clearly suffers from atopic disease based upon history and our skin testing. She discontinued SCIT after receiving therapy for over 1 year because no improvement in rhintiis and congestion. Good control with above medications. 07/12/2024 Chronic sinusitis, unspecified (ICD-10 - J32.9) Immunodeficiency evaluation is normal after receiving Pneumovax and HIB. Continue to treat atopic disease and monitor infection frequency 09/06/2024 Idiopathic urticaria (ICD-10 - L50.1) Unclear cause for hives x2 weeks. Considerations for hives include autoimmune, viral, stress, or idiopathic. Plan to order labwork for further evaluation. Start treatment with Xyzal 5 mg BID, Famotidine 40 mg BID, and Singulair. We discussed that Benadryl may be contributing to her recent dizziness and try to discontinue. We briefly discussed Xolair 09/06/2024 Chronic sinusitis, unspecified (ICD-10 - J32.9) Immunodeficiency evaluation is normal after receiving Pneumovax and HIB. Continue to treat atopic disease and monitor infection frequency 10/04/2024 Idiopathic urticaria (ICD-10 - L50.1) Unclear cause for hives. Considerations for hives include autoimmune, viral, stress, or idiopathic. Normal tryptase CBC, CMP, sed rate. Continue treatment with Xyzal 10 mg BID, Famotidine 40 mg BID, and Singulair. Methylprednisone was started today by PCP for arthitis and should also help current hives. We discussed Xolair and plan to start. Paper work was filled out today. She was educated regarding the risks/benefits/alter natives to Xolair. We also reviewed again today 'boxed warning' for anaphylaxis as well as risk for malignancy and CV disease. 10/04/2024 Chronic sinusitis, unspecified (ICD-10 - J32.9) Immunodeficiency evaluation is normal after receiving Pneumovax and HIB. Continue to treat atopic disease and monitor infection frequency 10/10/2024 Allergic rhinitis due to pollen (ICD-10 - J30.1) 10/10/2024 Idiopathic urticaria (ICD-10 - L50.1) 10/04/2024 Allergic rhinitis due to pollen (ICD-10 - J30.1) Andres clearly suffers from atopic disease based upon history and our skin testing. She discontinued SCIT after receiving therapy for over 1 year because no improvement in rhintiis and congestion. Good control with above medications. 09/06/2024 Allergic rhinitis due to pollen (ICD-10 - J30.1) Andres clearly suffers from atopic disease based upon history and our skin testing. She discontinued SCIT after receiving therapy for over 1 year because no improvement in rhintiis and congestion. Good control with above medications. 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 She is following with [facility] and working with physical therapy and speech therapy. Spirometry and CXR were normal. She is now off all inhalers. 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 She is following with [facility] and working with physical therapy and speech therapy. Spirometry and CXR were normal. She is now off all inhalers. 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 She is following with [facility] and working with physical therapy and speech therapy. Spirometry and CXR were normal. She is now off all inhalers. 10/04/2024 Allergy to other foods (ICD-10 - Z91.018) appears to have sulfite sensitivity and recommend avoiding problematic food 09/06/2024 Allergy to other foods (ICD-10 - Z91.018) appears to have sulfite sensitivity and recommend avoiding problematic food 07/12/2024 Allergic rhinitis due to animal (cat) (dog) hair and dander (ICD-10 - J30.81) 07/12/2024 Other allergic rhinitis (ICD-10 - J30.89) 09/06/2024 Allergic rhinitis due to animal (cat) (dog) hair and dander (ICD-10 - J30.81) 10/04/2024 Allergic rhinitis due to animal (cat) (dog) hair and dander (ICD-10 - J30.81) 10/04/2024 Other allergic rhinitis (ICD-10 - J30.89) 09/06/2024 Other allergic rhinitis (ICD-10 - J30.89) 07/12/2024 Allergy status to sulfonamides (ICD-10 - Z88.2) skin testing is not available for Bactrim. Recommend continued avoidance 09/06/2024 Allergy status to sulfonamides (ICD-10 - Z88.2) skin testing is not available for Bactrim. Recommend continued avoidance 10/04/2024 Allergy status to sulfonamides (ICD-10 - Z88.2) skin testing is not available for Bactrim. Recommend continued avoidance 07/12/2024 Other 09/06/2024 Other 10/04/2024 Other Plan Of Treatment Pending Test Test Name Order Date X ray : Chest 01/04/2023 Next Appt Details Provider Name:Araceliquinn worley, 07/11/2025 08:45:00 AM, [address] [facility], [address], [place], [address], Insurance Providers Payer Name Payer Address Payer Phone Subscriber Number Group Number Insured Name Patient Relationship to Insured Coverage Start Date Coverage End Date [facility] [address] [place] [address] [id number] Andres Pulido Self - patient is the insured 4 Medical (General) History Medical History History ICD Code Gastro-esophageal reflux disease without esophagitis Hypertension NOS Wheezing R06.2 Chronic sinusitis, unspecified J32.9 Allergic rhinitis due to pollen J30.1 Allergic rhinitis due to animal (cat) (d og) hair and dander J30.81 Other allergic rhinitis J30.89 Dermatitis, unspecified L30.9 Allergy status to penicillin Z88.0 Allergy status to sulfonamides status Z8 8.2 Shortness of breath R06.02 Allergy to other foods Z91.018 Acute nasopharyngitis [common cold] J00 Chronic sinusitis, unspecified J32.9 Wheezing R06.2 Idiopathic urticaria L50.1 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
--- OUTSIDE RECORDS SUMMARY | 2025-05-30 00:41 | XMS_ITS | Encounter Summary ---
Author Organization [facility] Address [facility] [place] [address] Care Team Providers Care Fitter And Turner Name Role Phone Viv Hamm Primary Care Provider [phone] Alberto Avendano MD Unavailable [phone] Kylee Villanueva MD Primary Care Provider [phone] Encounter Details Date Type Department Care Team (Latest Contact Info) Description 11/10/2022 MyChart Message Enc [facility] Medical Group Multispecialty Care - [facility] [address] [facility], [address] [place] [address] Shane Noble MD [address] [place] [address] Small Fiber Neuropathy Biopsy Social History Tobacco Use Types Packs/Day Years [...] Sex Assigned at Female 11/14/2024 2:54 PM L D RN Legal Sex Female 11:06 AM CDT Gender Identity Female 05/11/2025 1:56 PM CDT Sexual Orientation Not on file COVID-19 Exposure Response Date Recorded In the last 10 days, have yo u been in contact with someone who was confirmed or suspected to have Coronavirus/COVID-19? No / Unsure 11/06/2022 2:42 PM L D RN documented as of this encounter Progress Notes * Shane Noble MD - 11/10/2022 6:01 PM CST Can you please contact the referral dept and provide the numbers she has kindly listed in her message? L D RN documented in this encounter Plan of Treatment Upcoming Encounters Date Type Department Care Team (Latest Contact Info) Description 06/07/2025 5:00 PM CDT Hospital Encounter [facility] [place] [address] [id number] Elizabeth Ryder MD Three [address] [address] 06/07/2025 5:00 PM CDT - 06/07/2025 5:20 PM CDT Surgery [facility] [place] [address] [id number] Elizabeth Ryder MD [address] [address] INJECTION TRIGGER POINT-cervivcal/th oracic 06/11/2025 2:40 PM CDT Office Visit [facility] [place] [address] [place] [address] Reynaldo Bunch MD [address] [place] [address] 07/13/2025 9:00 AM CDT Hospital Encounter [facility] Interventional [place] [address] [id number] Elizabeth Ryder MD Three [facility] [address] [place] [address] 07/13/2025 9:00 AM CDT - 07/13/2025 9:20 AM CDT Surgery [facility] Interventional [facility] [place] [address] [id number] Elizabeth Ryder MD Three [facility] [address] [place] [address] INJECTION EPIDURAL STEROID [id number] 07/13/2025 11:00 AM CDT Office Visit [facility] Mult[facility]pec[facility]ty Care - [facility] 3 [facility], [address] [place] [address] Esau Hoff MD 3 [facility] [address] [place] [address] 09/13/2025 7:40 AM L D RN Office Visit [facility] - [address] [address] [place] [address] [address] [place] [address] Scheduled Procedures Name Priority Associated Diagnoses Date/Ti me INJECTION TRIGGER POINT Myofascial pain 06/07/2025 5:00 PM CDT INJECTION EPIDURAL STEROID CERVICAL Cervical radiculopathy 07/13/2025 9:00 AM CDT documented as of this encounter Visit Diagnoses Not on filedocumented in this encounter Additional Health Concerns Infection Onset Date Last Indicated Resolved Time COVID-19 Rule Out 12/13/2023 12/13/2023 12/13/2023 8:54 AM L D RN COVID-19 Rule Out 08/30/2024 08/30/2024 08/30/2024 8:14 AM L D RN COVID-19 Rule Out 11/03/2024 11/03/2024 11/03/2024 10:48 AM L D RN documented as of this encounter Care Teams Fitter And Turner Relationship Specialty [place] [address] [address] [address] PCP - General PHYSICIAN ELECTRONICS ASSEMBLER 02/03/21 06/06/23 [place] [address] [place] [address] PCP - General FAMILY PRACTICE 06/07/23 [place] [address] [place] [address] NEUROLOGICAL SURGERY 11/24/21 documented as of this encounter
--- OUTSIDE RECORDS SUMMARY | 2025-05-30 00:41 | XMS_ITS | Encounter Summary ---
Author Organization [facility] Address [address] [place] [address] Care Team Providers Care Property Insurance Claims Examiner Name Role Phone Alberto Avendano MD Unavailable [phone] Kylee Villanueva MD Primary Care Provider [phone] Encounter Details Date Type Department Care Team (Late st Contact Info) Description 11/02/2024 Vamo Message Enc [facility] Medical Group Family & Internal Medicine [address] [address] [place] Provider Medication Information Social History Tobacco Use Types Packs/Day [...] Date Recorded Patient Health Questionnaire-2 Score 0 11/03/2024 Education Answer Date Recorded What is the highest level of school you have completed or the highest degree you have received? Bachelor's degree (e.g., BA, AB, BS) 05/06/2022 Comments No Sex and Gender Information Value Date Recorded Sex Assigned at Female 11/14/2024 2:54 PM [employer] Legal Sex Female 11:06 AM CDT Gender Identity Female 05/11/2025 1:56 PM CDT Sexual Orientation Not on file documented as of this encounter Functional Status * Over the past 2 weeks, how often have you been bothered by any of the following problems? Question Answer Date of Assessment Author Status Little interest or pleasure in doing things Not at all 11/03/2024 10:27 AM Wilver Martinez MA Active Feeling down, depressed, or hopeless Not at all 11/03/2024 10:27 AM Rm Martinez MA Active Patient Health Questionnaire-2 Score 0 11/03/2024 10:27 AM Feliz Martinez MA Active documented as of this encounter Plan of Treatment Upcoming Encounters Date Type Department Care Team (Latest Contact Info) Description 06/07/2025 5:00 PM CDT Hospital Encounter [facility] Interventional [place] [address] [id number] Elizabeth Ryder MD Three [address] [address] 06/07/2025 5:00 PM CDT - 06/07/2025 5:20 PM CDT Surgery [facility] Interventional [place] [address] [id number] Elizabeth Ryder MD Three [address] [address] INJECTION TRIGGER POINT-cervivcal/th oracic 06/11/2025 2:40 PM CDT Office Visit [facility] Medical Group Orthopedic & Sports Medicine - [place] [address] [place] [address] Reynaldo Bunch MD [address] [place] [address] 07/13/2025 9:00 AM CDT Hospital Encounter [facility] Interventional [place] [address] [id number] Elizabeth Ryder MD Three [facility] [address] [place] [address] 07/13/2025 9:00 AM CDT - 07/13/2025 9:20 AM CDT Surgery [facility] Interventional Pain [place] [address] [id number] Elizabeth Ryder MD Three [facility] [address] [place] [address] INJECTION EPIDURAL STEROID [id number] 07/13/2025 11:00 AM CDT Office Visit [facility] Medical Group Multispecialty Care - [facility] 3 [facility], [address] [place] [address] Esau Hoff MD 3 [facility] [address] [place] [address] 09/13/2025 7:40 AM ROLLED HAM LACER Office Visit [facility] Medical Group Family & Internal Medicine - [address] [address] Kylee Villanueva MD [address] [place] [address] [place] [address] Scheduled Procedures Name Priority Associated Diagnoses Date/Ti me INJECTION TRIGGER POINT Myofascial pain 06/07/2025 5:00 PM CDT INJECTION EPIDURAL STEROID CERVICAL Cervical radiculopathy 07/13/2025 9:00 AM CDT documented as of this encounter Visit Diagnoses Not on filedocumented in this encounter Additional Health Concerns Infection Onset Date Last Indicated Resolved Time COVID-19 Rule Out 11/03/2024 11/03/2024 11/03/2024 10:48 AM ROLLED HAM LACER documented as of this encounter Care Teams Property Insurance Claims Examiner Relationship Specialty Start [place] [id number] [facility] [place] [address] PCP - General FAMILY PRACTICE 06/07/23 Alberto Avendano MD NEUROLOGICAL SURGERY 11/24/21 documented as of this encounter
--- OUTSIDE RECORDS SUMMARY | 2025-05-30 00:41 | XMS_ITS | Encounter Summary ---
Author Organization [facility] Address [address] [place] [address] Care Team Providers Care Rn Medical Inpatient Services Name Role Phone Alberto Avendano MD Unavailable [phone] Kylee Villanueva MD Primary Care Provider [phone] Encounter Details Date Type Department Care Team (Late st Contact Info) Description [facility] Medical Group Orthopedic & Sports Medicine - [place] [address] [place] [address] [phone] Reynaldo Bunch MD [address] [place] [address] Wrist update Social History Tobacco Use Types Packs/Day Years [...] Date Recorded Patient Health Questionnaire-2 Score 0 01/08/2025 Education Answer Date Recorded What is the highest level of school you have completed or the highest degree you have received? Bachelor's degree (e.g., BA, AB, BS) 05/06/2022 Comments No Sex and Gender Information Value Date Recorded Sex Assigned at Female 11/14/2024 2:54 PM STUNT MAN Legal Sex Female 11:06 AM CDT Gender Identity Female 05/11/2025 1:56 PM CDT Sexual Orientation Not on file documented as of this encounter Plan of Treatment Upcoming Encounters Date Type Department Care Team (Latest Contact Info) Description 06/07/2025 5:00 PM CDT Hospital Encounter [facility] Interventional [place] [address] [id number] Elizabeth Ryder MD Three [address] [address] 06/07/2025 5:00 PM CDT - 06/07/2025 5:20 PM CDT Surgery [facility] [place]ventional [place] [address] [id number] Elizabeth Ryder MD Three [address] [address] INJECTION TRIGGER POINT-cervivcal/th oracic 06/11/2025 2:40 PM CDT Office Visit [facility] Medical Group Orthopedic [facility] [place] [address] [place] [address] Reynaldo Bunch MD [address] [place] [address] 07/13/2025 9:00 AM CDT Hospital Encounter [facility] Interventional [place] [address] [id number] Elizabeth Ryder MD Three [address] [address] 07/13/2025 9:00 AM CDT - 07/13/2025 9:20 AM CDT Surgery [facility] Interventional Pain [place] [address] [id number] Elizabeth Ryder MD Three [facility] [address] [place] [address] INJECTION EPIDURAL STEROID [id number] 07/13/2025 11:00 AM CDT Office Visit [facility] Medical [facility] Multispecialty Care - [facility] [address] [facility], [address] [place] [address] Esau Hoff MD 3 [facility] [address] [place] [address] 09/13/2025 7:40 AM STUNT MAN Office Visit [facility] Medical [facility] Family & Internal Medicine [address] [address] [place] [address] [facility] [address] [place] [address] Scheduled Procedures Name Priority Associated Diagnoses Date/Ti me INJECTION TRIGGER POINT Myofascial pain 06/07/2025 5:00 PM CDT INJECTION EPIDURAL STEROID CERVICAL Cervical radiculopathy 07/13/2025 9:00 AM CDT documented as of this encounter Visit Diagnoses Not on filedocumented in this encounter Additional Health Concerns Assessment Noted Time PHQ-9 Depression Total Score: 2 12/11/19 25 1:50 PM STUNT MAN documented as of this encounter Care Teams Rn Medical Inpatient Services Relationship Specialty Start [place] [address] [facility] [place] [address] PCP - General FAMILY PRACTICE 06/07/23 Alberto Avendano MD NEUROLOGICAL SURGERY 11/24/21 documented as of this encounter
--- OUTSIDE RECORDS SUMMARY | 2025-05-30 00:41 | XMS_ITS | Clinical Summary ---
Author Organization [facility] Address [address] [place] [address] Care Team Providers Care Funeral Home Director Name Role Phone Shane Noble MD Unavailable [phone] Kylee Villanueva MD Primary Care Provider [phone] Reynaldo Bunch MD Unavailable [phone] Allergies Active Allergy Reactions Criticality Noted Date Comments Clarithromycin Rash Medium 08/10/2023 Clindamycin Hives,Itching,Rash Medium 09/11/2023 Other Other (See comments) Medium 04/06/2023 Penicillins Hives,Other (See comments),Rash,Shortness of breath,Unknown,Urticaria High 10/14/2009 Sulfa (Sulfonamide Antibiotics) Hives,Other (See comments),Rash,Shortness of breath,Unknown,Urticaria High 10/14/2009 Medications montelukast (SINGULAIR) 10 mg tablet Take 1 tablet (10 mg total) by mouth nightly 2 Active levocetirizine (XYZAL) 5 mg tablet Take 1 tablet (5 mg total) by mouth daily 2 Active fluticasone propionate (FLONASE) 50 mcg/actuation nasal spray INSTILL 2 SPRAYS IN EACH NOSTRIL EVERY DAY 2 Active benazepril-hyd roCHLOROthiazi de (LOTENSIN HCT) 10-12.5 mg per tablet Take 2 tablets by mouth every morning 2 Active cranberry conc-ascorbic acid 4,200-20 mg capsule Take 4,200 mg by mouth daily Active mv-mn/folic/nitza tein/herbal 293 (ALIVE WOMEN'S 50 PLUS GUMMY ORAL) Take by mouth daily Active famotidine (PEPCID) 40 mg tablet Take 1 tablet (40 mg total) by mouth daily Active omeprazole (PriLOSEC) 40 mg capsule 1 capsule (40 mg total) 2 (two) times a day 3 Active gabapentin (NEURONTIN) 300 mg capsule Take 1 capsule (300 mg total) by mouth daily Take as needed daily Active furosemide (LASIX) 20 mg tablet [address] (VOLTAREN) 75 mg EC tabletIndicati ons:Pain Take 1 tablet (75 mg total) by mouth daily as needed for pain 90 tablet 5 Active hydroxychloroq uine (PLAQUENIL) 200 mg tablet Take 1 tablet (200 mg total) by mouth daily Alternating with 2 tablets (400 mg total) by mouth every other day. 135 tablet [address] (CYMBALTA) 30 mg capsule Take 1 capsule (30 mg total) by mouth daily 30 capsule 5 5 08/21/20 25 Active cycloSPORINE (RESTASIS) 0.05 % ophthalmic emulsionIndica tions:Keratoco njunctivitis Sicca,Sjogren' s Syndrome Administer 1 drop into both eyes every 12 (twelve) hours 180 each 1 5 08/05/20 25 Active cycloSPORINE (RESTASIS) 0.05 % ophthalmic emulsionIndica tions:Keratoco njunctivitis Sicca,Sjogren' s Syndrome Administer 1 drop into both eyes 4 (four) times a day 60 each 1 5 05/07/20 25 Discontin ued(Reord er) Active Problems Problem Noted Date Diagnosed Date Conjunctival hemorrhage of right eye 12/26/2024 Assessment & Plan (12/26/2024 8:43 AM DISPLAY ARTIST): CINTIA with some pain this morning. Now just achey. VA/EOMs/CVF/IOP all WNL. No epi defect. No f/b. Reassured pt. F/u in August 2025 for annual exam. Decreased peripheral vision, left 10/31/2024 Myogenic ptosis of left eyelid 10/31/2024 Dry eyes 08/21/2024 Assessment & Plan (08/21/2024 2:04 PM CDT): Mild conjunctival dryness, known history of Sjogren's Syndrome. Discussed treatment options including OTC ATs and Xiidra/Restasis trial. Elects to begin w OTC tears first, Refresh BID both eyes (OU). Will reach out to consider Xiidra/Restasis if not working well. Ptosis of left eyelid 08/21/2024 Assessment & Plan (08/21/2024 2:05 PM CDT): Mild ptosis left eye (OS) noted and discussed, pt reports does not worsen during the day. 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 She denies any associated tightness in her throat, voice changes, or breaks in her speech to suggest laryngeal dystonia as the etiology., and voice on exam today sounded normal. She was diagnosed with right vocal cord paralysis after a prior ENT evaluation, and I will defer to their expertise but this seems likely. 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 Workup for a structural cause was negative, which is reassuring. Typically such a post-viral syndrome would gradually improve over time, though not always. We discussed that botulinum toxin can treat the muscle hyperactivity associated with laryngeal dystonia to improve symptoms, but in her case would cause worsening if anything. I advised her to continue following up with Speech Therapy and ENT as needed. Dysphagia 04/06/2023 Hepatic steatosis 04/06/2023 Lumbar facet arthropathy 08/21/2022 Overview (10/30/2022): Added automatically from request for surgery [id number] ALT (SGPT) level raised 04/10/2022 Calculus of gallbladder with out cholecystitis without obstruction 04/10/2022 Heartburn 03/17/2021 Hypertension 02/26/2021 GERD (gastroesophageal reflux disease) Allergies 02/26/2021 Environmental and seasonal allergies 02/26/2021 Encounters Date Type Department Care Team Description 2025 Telephone [facility] Pediatric Genetics [facility] 2nd [place] [address] [place] [address] Ale Thompson CGC PA temitope 05/25/2025 3:00 PM CDT Office Visit [facility] Pediatric [facility] 2nd [place] [address] [place] [address] Felix Tripathi MD Connective tissue disorder (Primary Dx) 05/16/2025 7:00 AM CDT Therapy [facility] Physical Therapy [address] [place] [phone] Wu Hicks, DPT Chronic right shoulder pain (Primary Dx); Rotator cuff tear arthropathy of right shoulder 04/30/2025 7:00 AM CDT Therapy [facility] Physical [address] [address] Wu Hicks, DPT Chronic right shoulder pain (Primary Dx); Rotator cuff tear arthropathy of right shoulder 04/17/2025 10:00 AM CDT Therapy [facility] Physical Therapy [address] [place] [phone] Mariaelena Steve, TRIPE WASHER Chronic right shoulder pain (Primary Dx) 04/10/2025 10:00 AM CDT Therapy [facility] Physical Therapy [address] [place] [phone] Mariaelena Steve, TRIPE WASHER Chronic right shoulder pain (Primary Dx) 03/30/2025 7:00 AM CDT Therapy [facility] Physical Therapy [address] [place] [phone] Wu Hicks, DPT Chronic right shoulder pain (Primary Dx); Rotator cuff tear arthropathy of right shoulder 03/13/2025 10:00 AM CDT Therapy [facility] Physical Therapy [address] [place] [address] [address] [place] [address] Steve Mariaelena Fadi, TRIPE WASHER Chronic right shoulder pain (Primary Dx); Rotator cuff tear arthropathy of right shoulder 03/06/2025 8:30 AM CDT Therapy [facility] Physical Therapy [address] [place] [address] [address] [place] [address] Mariaelena Steve, TRIPE WASHER Chronic right shoulder pain (Primary Dx) 02/27/2025 1:45 PM CDT Therapy [facility] Physical Therapy [address] [facility] [address] [place] [address] Power Mariaelena Fadi, TRIPE WASHER Chronic right shoulder pain (Primary Dx); Rotator cuff tear arthropathy of right shoulder from Last 3 Months Immunizations Immunization Administration Dates Next Due Influenza, Quadrivalent, Vaishali l Culture-based MDCK, Antibiotic Free, Intramuscular 10/02/2019 Influenza, Quadrivalent, Spl it, Preservative Free, Intramuscular 08/10/2023,07/31/2022 Influenza, Unspecified 08/07/2023,07/21/2021 Moderna Sars-cov-2 Bivalent Vaccine 50 Mcg/0.5 mL (12+ YRS)-Blue/Nieto 07/31/2022 Pneumococcal Polysaccharide PPV23 10/21/2021 ZOSTER Recombinant 12/20/2021,07/26/2021 Surgical History Surgery Date Site/Laterality Comments CERVICAL BIOPSY W/ LOOP ELEC TRODE EXCISION 10/25/1997 - 10/24/1998 NASAL POLYP SURGERY 10/25/2008 - 10/24/2009 COLONOSCOPY 03/2021 FL UPPER GI AIR CONTRAST W KUB 03/04/2022 Left LUMBAR PUNCTURE WO INJECTION , DIAGNOSTIC 02/27/2022 N/A WISDOM TOOTH EXTRACTION 06/20/2024 CHOLECYSTECTOMY 04/10/2024 Medical History Medical History Date Comments Cervical disc disease Cervical stenosis (uterine cervix) Hypertension Liver disease Disc disorder of lumbar region Allergic rhinitis 2015 Sleep apnea 03/2022 GERD (gastroesophageal reflux disease) April 1998 Tinnitus 1990 Ptosis of left eyelid 08/21/2024 REYES Nuclear sclerotic cataract, bilateral Optic cupping, bilateral C/D rat io OU (0.5) Dry eye syndrome, bilateral 08/21/2024 Sjogren's syndrome with keratoconjunctivitis sic ca Family History Medical History Relation Name Comments Cancer Brother Elmer tomas Cancer Father Lavelle tomas Heart disease Father Lavelle tomas Hypertension Father Lavelle tomas Macular degeneration Father Lavelle tomas Stroke Father Lavelle tomas Thyroid disease Father Lavelle tomas Heart disease Mother Darlyn Alicia Stroke Mother Darlyn Alicia Other Niece Rett syndrome Relation Name Status Comments Brother Elmer tomas Father Lavelle tomas Mother Darlyn Alicia Niece Alive Social History Tobacco Use Types Packs/Day Years Used Date Smoking Tobacco: Never Passive Smoke Exposure: Past Smokeless Tobacco: Never Tobacco Cessation:Counseling Given: No AUDIT-C Answer Date Recorded Q1: How often [...] 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 Not on file Not on fi le Obstetrics History Last Filed Vital Signs Vital Sign Reading Time Taken Comments Blood Pressure 128/72 05/25/2025 2:49 PM CDT Pulse 111 05/25/2025 2:49 PM CDT Temperature 36.3 C (97.4 F) 01/30/2025 7:57 AM CDT Respiratory Rate 20 09/11/2023 7:29 PM DISPLAY ARTIST Oxygen Saturation 98% 05/25/2025 2:49 PM CDT Inhaled Oxygen Concentration - - Weight 76.9 kg (169 lb 8.5 oz) 05/25/2025 2:49 P M CDT Height 170.1 cm (5' 6.97) 05/25/2025 2:49 PM CD T Body Mass Index 26.58 05/25/2025 2:49 PM CDT Plan of Treatment Health Maintenance Due Date Last Done Comments Breast Cancer Screening-Mammogram 1970 Colon Cancer Screening-Colonoscopy 1970 Depression Screening 1970 Hepatitis B Screening 1988 Regular Well Visit/Exam 18-64 1988 Pneumococcal vaccine <65 (2 of 2 - PCV) 10/21/2022 10/21/2021 DTaP/Tdap/Td Vaccine (1 - Tdap) 06/13/2024 Covid-19 Vaccine (5 - 2023-2 5 season) 2024 07/31/2022, 09/06/2021, 01/13/2021, Additional history exists Influenza Vaccine (#1) 2025 , 08/10/2023, 08/07/2023, Additional history exists Cervical Cancer Screening 08/30/20252023, 08/10/2023, 07/31/2022 Zoster Vaccine Completed 12/20/2021, 07/26/2021 Hepatitis C Screening Completed 12/14/2023 Procedures Procedure Name Priority Date/Time Associated Diagnosis Comments HEPATITIS PANEL, ACUTE Routine 12/14/2023 4:08 PM DISPLAY ARTIST Cervicalgia from Last 3 Months or Most Recently Relevant to Health Maintenance Results * Hepatitis panel, acute Blood (12/14/2023 4:08 PM DISPLAY ARTIST) Hep A IgM Nonreactive Nonreactive [facility] Hep B core IgM Nonreactive Nonreactive [facility] Hep C Ab Nonreactive Nonreactive [facility] Comment:Antibodies to HCV no t detected. Does NOT exclude the possibility of recent exposure to HCV. Current interpretive data was last revised on 22 HepBsAg Nonreactive Nonreactive [facility] Blood 12/14/2023 4:08 PM DISPLAY ARTIST 12/14/2023 5:16 PM DISPLAY ARTIST us Briana Clemens MD LAB MICROBIOLOGY - GENERAL ORDER MARCIA Final Result [facility] [place] [address] from Last 3 Months or Most Recently Relevant to Health Maintenance Insurance [facility] CHOICE PLUS Care Teams Funeral Home Director Relationship Specialty Start [place] [address] [address] [place] [address] PCP - General Family Medicine 07/12/23 Phil-Shane Mcneil MD [address] [address] Fellow Neurology 08/17/22 Reynaldo Bunch MD [address] [place] [address] Orthopedic Surgery 08/10/23
--- OUTSIDE RECORDS SUMMARY | 2025-05-30 00:41 | XMS_ITS | Referral Summary ---
Author Organization [facility] Address [address] [facility] [place] [address] Care Team Providers Care Custom Designer Name Role Phone Shane Noble MD Unavailable [phone] Kylee Villanueva MD Primary Care Provider [phone] Reynaldo Bunch MD Unavailable Encounters Date Type Department Care Team Description 2025 Telephone [facility] Pediatric Genetics [facility] 2nd [place] [address] [place] [phone] Ale Thompson CGC PA wes 05/25/2025 3:00 PM CDT Office Visit [facility] Pediatric [facility] 2nd [place] [address] [place] [address] Felix Tripathi MD Connective tissue disorder (Primary Dx) 05/16/2025 7:00 AM CDT Therapy [facility] Physical Therapy [address] [place] [phone] Wu Hicks DPT Chronic right shoulder pain (Primary Dx); Rotator cuff tear arthropathy of right shoulder 04/30/2025 7:00 AM CDT Therapy [facility] Physical Therapy [address] [place] [address] Wu Hicks DPT Chronic right shoulder pain (Primary Dx); Rotator cuff tear arthropathy of right shoulder 04/17/2025 10:00 AM CDT Therapy [facility] Physical Therapy [address] [place] [phone] Mariaelena Steve Manjulamargie, MIDDLE SCHOOL COUNSELOR Chronic right shoulder pain (Primary Dx) 04/10/2025 10:00 AM CDT Therapy [facility] Physical [address] [address] Mariaelena Steve, MIDDLE SCHOOL COUNSELOR Chronic right shoulder pain (Primary Dx) 03/30/2025 7:00 AM CDT Therapy [facility] Physical [address] [address] Wu Hicks, DPT Chronic right shoulder pain (Primary Dx); Rotator cuff tear arthropathy of right shoulder 03/13/2025 10:00 AM CDT Therapy [facility] Physical [address] [address] Mariaelena Steve Manjulamargie, MIDDLE SCHOOL COUNSELOR Chronic right shoulder pain (Primary Dx); Rotator cuff tear arthropathy of right shoulder 03/06/2025 8:30 AM CDT Therapy [facility] Physical [address] [address] Mariaelena Steve Manjulamargie, MIDDLE SCHOOL COUNSELOR Chronic right shoulder pain (Primary Dx) 02/27/2025 1:45 PM CDT Therapy [facility] Physical [address] [address] Mariaelena Steve Manjulamargie, MIDDLE SCHOOL COUNSELOR Chronic right shoulder pain (Primary Dx); Rotator cuff tear arthropathy of right shoulder from Last 3 Months Allergies Active Allergy Reactions Criticality Noted Date [...] 12/26/2024 Assessment & Plan (12/26/2024 8:43 AM CHEMICAL TECHNICIAN): CINTIA with some pain this morning. Now [...] (10/30/2022): Added automatically from request for surgery [id number] ALT (SGPT) level raised 04/10/2022 Calculus of gallbladder with out cholecystitis without obstruction 04/10/2022 Heartburn 03/17/2021 Hypertension 02/26/2021 GERD (gastroesophageal reflux disease) Allergies 02/26/2021 Environmental and seasonal allergies 02/26/2021 Immunizations Immunization Administration Dates Next Due Influenza, Quadrivalent, Vaishali l Culture-based MDCK, Antibiotic Free, Intramuscular 10/02/2019 Influenza, Quadrivalent, Spl it, Preservative Free, Intramuscular 08/10/2023,07/31/2022 Influenza, Unspecified 08/07/2023,07/21/2021 Moderna Sars-cov-2 Bivalent Vaccine 50 Mcg/0.5 mL (12+ YRS)-Blue/Nieto 07/31/2022 Pneumococcal Polysaccharide PPV23 10/21/2021 ZOSTER Recombinant 12/20/2021,07/26/2021 Social History Tobacco Use Types Packs/Day Years [...] 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 Not on file Not on fi le Last Filed Vital Signs Vital Sign Reading Time Taken Comments Blood Pressure 128/72 05/25/2025 2:49 PM CDT Pulse 111 05/25/2025 2:49 PM CDT Temperature 36.3 C (97.4 F) 01/30/2025 7:57 AM CDT Respiratory Rate 20 09/11/2023 7:29 PM CHEMICAL TECHNICIAN Oxygen Saturation 98% 05/25/2025 2:49 PM CDT Inhaled Oxygen Concentration - - Weight 76.9 kg (169 lb 8.5 oz) 05/25/2025 2:49 P M CDT Height 170.1 cm (5' 6.97) 05/25/2025 2:49 PM CD T Body Mass Index 26.58 05/25/2025 2:49 PM CDT Plan of Treatment Not on file Procedures Procedure Name Priority Date/Time Associated Diagnosis Comments HEPATITIS PANEL, ACUTE Routine 12/14/2023 4:08 PM CHEMICAL TECHNICIAN Cervicalgia from Last 3 Months or Most Recently Relevant to Health Maintenance Results * Hepatitis panel, acute Blood (12/14/2023 4:08 PM CHEMICAL TECHNICIAN) Hep A IgM Nonreactive Nonreactive [facility] Hep B core IgM Nonreactive Nonreactive [facility] Hep C Ab Nonreactive Nonreactive [facility] Comment:Antibodies to HCV no t detected. Does NOT exclude the possibility of recent exposure to HCV. Current interpretive data was last revised on 22 HepBsAg Nonreactive Nonreactive [facility] Blood 12/14/2023 4:08 PM CHEMICAL TECHNICIAN 12/14/2023 5:16 PM CHEMICAL TECHNICIAN us Briana Clemens MD LAB MICROBIOLOGY - GENERAL ORDER MARCIA Final Result [facility] Department [place] [address] from Last 3 Months or Most Recently Relevant to Health Maintenance Insurance [facility] CHOICE PLUS [facility] H[facility]/PPO Address: [address] [place] [address] [facility] CHOICE PLUS [facility]/[place] [address] Care Teams Custom Designer Relationship Specialty Start [place] [address] [facility] [place] [address] PCP - General Family Medicine 07/12/23 Shane Noble MD [address] [address] Fellow Neurology 08/17/22 Reynaldo Bunch MD [address] [place] [address] Orthopedic Surgery 08/10/23
--- OUTSIDE RECORDS SUMMARY | 2025-05-30 00:41 | XMS_ITS | Encounter Summary ---
Author Organization [facility] Address [address] [place] [address] Care Team Providers Care Almond Blancher Operator Name Role Phone Viv Hamm Primary Care Provider [phone] Alberto Avendano MD Unavailable [phone] Kylee Villanueva MD Primary Care Provider [phone] Encounter Details Date Type Department Care Team (Late st Contact Info) Description 03/02/2021 MyChart Message Enc [facility] Medical Group Family & Internal Medicine [facility] [address] [place] [address] Viv Hamm [place] [id number] [place] [address] RE: Test Results Social History Tobacco [...] Sex Assigned at Female 11/14/2024 2:54 PM INTERPRETATIVE DANCER Legal Sex Female 11:06 AM CDT Gender [...] Description 06/07/2025 5:00 PM CDT Hospital Encounter [facility] Interventional [place] [address] [id number] Elizabeth Ryder MD Three [address] [address] 06/07/2025 5:00 PM CDT - 06/07/2025 5:20 PM CDT Surgery [facility] [place]ventional [place] [address] [id number] Elizabeth Ryder MD Three [address] [address] INJECTION TRIGGER POINT-cervivcal/th oracic 06/11/2025 2:40 PM CDT Office Visit [facility] Medical Group Orthopedic & Sports Medicine - [place] [address] [place] [address] Reynaldo Bunch MD [address] [place] [address] 07/13/2025 9:00 AM CDT Hospital Encounter [facility] [place] [address] [id number] Elizabeth Ryder MD Three [facility] [address] [place] [address] 07/13/2025 9:00 AM CDT - 07/13/2025 9:20 AM CDT Surgery [facility] Interventional [place] [address] [id number] Elizabeth Ryder MD Three [facility] [address] [place] [address] INJECTION EPIDURAL STEROID [id number] 07/13/2025 11:00 AM CDT Office Visit [facility] Multispecialty Care - [facility] [address] [facility] [address] [place] [address] Esau Hoff MD [address] [facility] [address] [place] [address] 09/13/2025 7:40 AM INTERPRETATIVE DANCER Office Visit [facility] Medical [facility] Family & Internal Medicine - [address] [address] Kylee Villanueva MD [address] [place] [address] [place] [address] [id number] Scheduled Procedures Name Priority Associated Diagnoses Date/Ti me INJECTION TRIGGER POINT Myofascial pain 06/07/2025 5:00 PM CDT INJECTION EPIDURAL STEROID CERVICAL Cervical radiculopathy 07/13/2025 9:00 AM CDT documented as of this encounter Visit Diagnoses Not on filedocumented in this encounter Additional Health Concerns Infection Onset Date Last Indicated Resolved Time COVID-19 Rule Out 12/13/2023 12/13/2023 12/13/2023 8:54 AM INTERPRETATIVE DANCER COVID-19 Rule Out 08/30/2024 08/30/2024 08/30/2024 8:14 AM INTERPRETATIVE DANCER COVID-19 Rule Out 11/03/2024 11/03/2024 11/03/2024 10:48 AM INTERPRETATIVE DANCER documented as of this encounter Care Teams Almond Blancher Operator Relationship Specialty [place] [address] [place] [address] PCP - General PHYSICIAN SONOGRAPHER 02/03/21 06/06/23 [place] [address] [address] [place] [address] PCP - General FAMILY PRACTICE 06/07/23 [place] [address] [place] [address] NEUROLOGICAL SURGERY 11/24/21 documented as of this encounter
--- OUTSIDE RECORDS SUMMARY | 2025-05-30 00:41 | XMS_ITS | Encounter Summary ---
Author Organization [facility] Address [address] [place] [address] Care Team Providers Care Painting Instructor Name Role Phone Alberto Avendano MD Unavailable [phone] Kylee Villanueva MD Primary Care Provider [phone] Encounter Details Date Type Department Care Team (Late st Contact Info) Description 01/09/2025 Bitcast Message Enc [facility] Medical Group Family & Internal Medicine [address] [address] Kylee Villanueva MD [address] [place] [address]. [address] [place] [address] Prescription Social History Tobacco Use Types Packs/Day Years [...] Sex Assigned at Female 11/14/2024 2:54 PM OVEN ROASTER Legal Sex Female 11:06 AM CDT Gender Identity Female 05/11/2025 1:56 PM CDT Sexual Orientation Not on file documented as of this encounter Plan of Treatment Upcoming Encounters Date Type Department Care Team (Latest Contact Info) Description 06/07/2025 5:00 PM CDT Hospital Encounter [facility] [place] [address] [id number] Elizabeth Ryder MD [address] [address] 06/07/2025 5:00 PM CDT - 06/07/2025 5:20 PM CDT Surgery [facility] [place]ventional [place] [address] [id number] Elizabeth Ryder MD [address] [address] INJECTION TRIGGER POINT-cervivcal/th oracic 06/11/2025 2:40 PM CDT Office Visit [facility] Medical Group Orthopedic & Sports Medicine - [place] [address] [place] [address] Reynaldo Bunch MD [address] [place] [address] 07/13/2025 9:00 AM CDT Hospital Encounter [facility] [place] [address] [id number] Elizabeth Ryder MD Three [address] [address] 07/13/2025 9:00 AM CDT - 07/13/2025 9:20 AM CDT Surgery [facility] Interventional [place] [address] [id number] Elizabeth Ryder MD Three [facility] [address] [place] [address] INJECTION EPIDURAL STEROID [id number] 07/13/2025 11:00 AM CDT Office Visit [facility] Medical [facility] Multispecialty Care - [facility] [address] [facility] [address] [place] [address] Esau Hoff MD 3 [facility] [address] [place] [address] 09/13/2025 7:40 AM OVEN ROASTER Office Visit [facility] Medical [facility] Family & Internal Medicine - [address] [address] Kylee Villanueva MD [address] [place] [address] Scheduled Procedures Name Priority Associated Diagnoses Date/Ti me INJECTION TRIGGER POINT Myofascial pain 06/07/2025 5:00 PM CDT INJECTION EPIDURAL STEROID CERVICAL Cervical radiculopathy 07/13/2025 9:00 AM CDT documented as of this encounter Visit Diagnoses Diagnosis Primary hypertension Unspecified essential hypertension Myofascial pain Mylagia and myositis, unspecified Cervical radiculopathy Brachial neuritis or radiculitis nos documented in this encounter Additional Health Concerns Assessment Noted Time PHQ-9 Depression Total Score: 2 12/11/19 25 1:50 PM OVEN ROASTER documented as of this encounter Care Teams Painting Instructor Relationship Specialty [place] [address] [address] [place] [address] PCP - General FAMILY PRACTICE 06/07/23 Alberto Avendano MD NEUROLOGICAL SURGERY 11/24/21 documented as of this encounter
--- OUTSIDE RECORDS SUMMARY | 2025-05-30 00:41 | XMS_ITS | Encounter Summary ---
Author Organization [facility] Address [address] [place] [address] Care Team Providers Care Channel Sales Director Name Role Phone Alberto Avendano MD Unavailable [phone] Kylee Villanueva MD Primary Care Provider [phone] Encounter Details Date Type Department Care Team (Late st Contact Info) Description 12/13/2024 eFuelDepott Message Enc [facility] Medical Group Orthopedic & Sports Medicine - [place] [address] [place] [address] [phone] Reynaldo Bunch MD [address] [place] [address] Appt Social History Tobacco Use Types Packs/Day [...] Sex Assigned at Female 11/14/2024 2:54 PM 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 SALES Legal Sex Female 11:06 AM CDT Gender Identity Female 05/11/2025 1:56 PM CDT Sexual Orientation Not on file documented as of this encounter Plan of Treatment Upcoming Encounters Date Type Department Care Team (Latest Contact Info) Description 06/07/2025 5:00 PM CDT Hospital Encounter [facility] [place] [address] [id number] Elizabeth Ryder MD Three [address] [address] 06/07/2025 5:00 PM CDT - 06/07/2025 5:20 PM CDT Surgery [facility] [place] [address] [id number] Elizabeth Ryder MD Three [address] [address] INJECTION TRIGGER POINT-cervivcal/th oracic 06/11/2025 2:40 PM CDT Office Visit [facility] Medical Group Orthopedic & Sports Medicine - [place] [address] [place] [address] Reynaldo Bunch MD [address] [place] [address] 07/13/2025 9:00 AM CDT Hospital Encounter [facility] [place] [address] [id number] Elizabeth Ryder MD Three [address] [address] 07/13/2025 9:00 AM CDT - 07/13/2025 9:20 AM CDT Surgery [facility] Interventional Pain [place] [address] [id number] Elizabeth Ryder MD Three [facility] [address] [place] [address] INJECTION EPIDURAL STEROID [id number] 07/13/2025 11:00 AM CDT Office Visit [facility] Medical [facility] Multispecialty Care - [facility] 3 [facility], [address] [place] [address] Esau Hoff MD 3 [facility] [address] [place] [address] 09/13/2025 7:40 AM 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 SALES Office Visit [facility] Medical [facility] Family & Internal Medicine [address] [address] [place] [address] [facility] [address] [place] [address] Scheduled Procedures Name Priority Associated Diagnoses Date/Ti me INJECTION TRIGGER POINT Myofascial pain 06/07/2025 5:00 PM CDT INJECTION EPIDURAL STEROID CERVICAL Cervical radiculopathy 07/13/2025 9:00 AM CDT documented as of this encounter Visit Diagnoses Not on filedocumented in this encounter Additional Health Concerns Assessment Noted Time PHQ-9 Depression Total Score: 2 12/11/19 25 1:50 PM 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 SALES documented as of this encounter Care Teams Channel Sales Director Relationship Specialty Start [place] [address] [facility] [place] [address] PCP - General FAMILY PRACTICE 06/07/23 Alberto Avendano MD NEUROLOGICAL SURGERY 11/24/21 documented as of this encounter
--- OUTSIDE RECORDS SUMMARY | 2025-05-30 00:41 | XMS_ITS | Encounter Summary ---
Author Organization [facility] Address [address] [place] [address] Care Team Providers Care Uranium Processing Supervisor Name Role Phone Alberto Avendano MD Unavailable [phone] Kylee Villanueva MD Primary Care Provider [phone] Encounter Details Date Type Department Care Team (Late st Contact Info) Description 10/26/2024 AudioSnapst Message Enc [facility] Medical Group Orthopedic & Sports Medicine - [place] [address] [place] [address] [phone] Reynaldo Bunch MD [address] [place] [address] Appointment Social History Tobacco Use Types Packs/Day [...] Date Recorded Patient Health Questionnaire-2 Score 0 08/30/2024 Education Answer Date Recorded What is the highest level of school you have completed or the highest degree you have received? Bachelor's degree (e.g., BA, AB, BS) 05/06/2022 Comments No Sex and Gender Information Value Date Recorded Sex Assigned at Female 11/14/2024 2:54 PM SECURITY SITE SUPERVISOR Legal Sex Female 11:06 AM CDT Gender Identity Female 05/11/2025 1:56 PM CDT Sexual Orientation Not on file documented as of this encounter Plan of Treatment Upcoming Encounters Date Type Department Care Team (Latest Contact Info) Description 06/07/2025 5:00 PM CDT Hospital Encounter [facility] Interventional [place] [address] [id number] Elizabeth Ryder MD Three [address] [address] 06/07/2025 5:00 PM CDT - 06/07/2025 5:20 PM CDT Surgery [facility] Interventional [place] [address] [id number] Elizabeth Ryder MD Three [address] [address] INJECTION TRIGGER POINT-cervivcal/th oracic 06/11/2025 2:40 PM CDT Office Visit [facility] Medical Group Orthopedic & Sports Medicine - [place] [address] [place] [address] Reynaldo Bunch MD 6[address] [place] [address] 07/13/2025 9:00 AM CDT Hospital Encounter [facility] Interventional [place] [address] [id number] Elizabeth Ryder MD Three [address] [address] 07/13/2025 9:00 AM CDT - 07/13/2025 9:20 AM CDT Surgery [facility] Interventional [place] [address] [id number] Elizabeth Ryder MD Three [facility] [address] [place] INJECTION EPIDURAL STEROID [id number] 07/13/2025 11:00 AM CDT Office Visit [facility] Multispecialty Care - [facility] 3 [facility] [address] [place] [address] Esau Hoff MD 3 [facility] [address] [place] [address] 09/13/2025 7:40 AM SECURITY SITE SUPERVISOR Office Visit [facility] Medical [facility] Family & Internal Medicine [address] [address] [place] [address] [facility] [address] [place] [address] Scheduled Procedures Name Priority Associated Diagnoses Date/Ti me INJECTION TRIGGER POINT Myofascial pain 06/07/2025 5:00 PM CDT INJECTION EPIDURAL STEROID CERVICAL Cervical radiculopathy 07/13/2025 9:00 AM CDT documented as of this encounter Visit Diagnoses Not on filedocumented in this encounter Additional Health Concerns Infection Onset Date Last Indicated Resolved Time COVID-19 Rule Out 11/03/2024 11/03/2024 11/03/2024 10:48 AM SECURITY SITE SUPERVISOR documented as of this encounter Care Teams Uranium Processing Supervisor Relationship Specialty Start Date End Date Kylee Villanueva MD [address] [place] [address]. [address] [place] [address] PCP - General FAMILY PRACTICE 06/07/23 Alberto Avendano MD NEUROLOGICAL SURGERY 11/24/21 documented as of this encounter
--- OUTSIDE RECORDS SUMMARY | 2025-05-30 00:41 | XMS_ITS | Encounter Summary ---
Author Organization [facility] Address [address] [place] [address] Care Team Providers Care Cardiology Teacher Name Role Phone Alberto Avendano MD Unavailable [phone] Kylee Villanueva MD Primary Care Provider [phone] Encounter Details Date Type Department Care Team (Late st Contact Info) Description 01/05/2025 [employer] Message Enc [facility] Medical Group Orthopedic & Sports Medicine - [place] [address] [place] [address] Merrill Hammond MD [address] [place] [address] Earlier appt Social History Tobacco Use Types Packs/Day Years [...] Sex Assigned at Female 11/14/2024 2:54 PM SIZE CHANGER Legal Sex Female 11:06 AM CDT Gender Identity Female 05/11/2025 1:56 PM CDT Sexual Orientation Not on file documented as of this encounter Functional Status * Over the past 2 weeks, how often have you been bothered by any of the following problems? Question Answer Date of Assessment Author Status Little interest or pleasure in doing things Not at all 01/08/2025 9:22 AM CDT Marlene Sanders, Nurse Student Active Feeling down, depressed, or hopeless Not at all 01/08/2025 9:22 AM CDT Layla Sanders, Nurse Student Active Patient Health Questionnaire-2 Score 0 01/08/2025 9:22 AM CDT Marylu Sanders sa, Nurse Student Active documented as of this encounter Plan of Treatment Upcoming Encounters Date Type Department Care Team (Latest Contact Info) Description 06/07/2025 5:00 PM CDT Hospital Encounter [facility] Interventional [place] [address] [id number] Elizabeth Ryder MD [address] [address] 06/07/2025 5:00 PM CDT - 06/07/2025 5:20 PM CDT Surgery [facility] Interventional [place] [address] [id number] Elizabeth Ryder MD Three [facility] [address] [place] [address] INJECTION TRIGGER POINT-cervivcal/th oracic 06/11/2025 2:40 PM CDT Office Visit [facility] Medical Group Orthopedic & Sports Medicine - [place] [address] [place] [address] Reynaldo Bunch MD [address] [place] [address] [place] [address] 07/13/2025 9:00 AM CDT Hospital Encounter [facility] Interventional Pain [place] [address] [id number] Elizabeth Ryder MD Three [facility] [address] [place] [address] 07/13/2025 9:00 AM CDT - 07/13/2025 9:20 AM CDT Surgery [facility] Interventional [place] [address] [id number] Elizabeth Ryder MD Three [facility] [address] [place] [address] INJECTION EPIDURAL STEROID [id number] 07/13/2025 11:00 AM CDT Office Visit [facility] Medical [facility] Multispecialty Care - [facility] 3 [facility], [address] [place] [address] Esau Hoff MD 3 [facility] [address] [place] [address] 09/13/2025 7:40 AM SIZE CHANGER Office Visit [facility] Medical Group Family & Internal Medicine - [address] [address] Kylee Villanueva MD [address] [place] [address] [place] [address] Scheduled Procedures Name Priority Associated Diagnoses Date/Ti me INJECTION TRIGGER POINT Myofascial pain 06/07/2025 5:00 PM CDT INJECTION EPIDURAL STEROID CERVICAL Cervical radiculopathy 07/13/2025 9:00 AM CDT documented as of this encounter Visit Diagnoses Not on filedocumented in this encounter Additional Health Concerns Assessment Noted Time PHQ-9 Depression Total Score: 2 12/11/19 25 1:50 PM SIZE CHANGER documented as of this encounter Care Teams Cardiology Teacher Relationship Specialty [place] [address] [facility]. [address] [place] [address] PCP - General FAMILY PRACTICE 06/07/23 Alberto Avendano MD NEUROLOGICAL SURGERY 11/24/21 documented as of this encounter
--- OUTSIDE RECORDS SUMMARY | 2025-05-30 00:41 | XMS_ITS | Encounter Summary ---
Author Organization [facility] [place] [facility] Address [address] [place] [address] Care Team Providers Care Manager Production Name Role Phone Alberto Avendano MD Unavailable [phone] Kylee Villanueva MD Primary Care Provider Encounter Details Date Type Department Care Team (Late st Contact Info) Description 11/30/2024 Bimicit Message Enc [facility] Medical Group Orthopedic & Sports Medicine - [place] [address] [place] [address] [phone] Reynaldo Bunch MD [address] [place] [address] Changes Social History Tobacco Use Types Packs/Day Years [...] Sex Assigned at Female 11/14/2024 2:54 PM PATTERN SCRATCHER Legal Sex Female 11:06 AM CDT Gender Identity Female 05/11/2025 1:56 PM CDT Sexual Orientation Not on file documented as of this encounter Plan of Treatment Upcoming Encounters Date Type Department Care Team (Latest Contact Info) Description 06/07/2025 5:00 PM CDT Hospital Encounter [facility] [place] [address] [id number] Elizabeth Ryder MD Three [address] [address] 06/07/2025 5:00 PM CDT - 06/07/2025 5:20 PM CDT Surgery [facility] [place] [address] [id number] Elizabeth Ryder MD Three [address] [address] INJECTION TRIGGER POINT-cervivcal/th oracic 06/11/2025 2:40 PM CDT Office Visit [facility] Medical Group Orthopedic & Sports Medicine - [place] [address] [place] [address] Reynaldo Bunch MD [address] [place] [address] 07/13/2025 9:00 AM CDT Hospital Encounter [facility] Interventional [place] [address] [id number] Elizabeth Ryder MD Three [address] [address] 07/13/2025 9:00 AM CDT - 07/13/2025 9:20 AM CDT Surgery [facility] Interventional [place] [address] [id number] Elizabeth Ryder MD Three [facility] [address] [place] [address] INJECTION EPIDURAL STEROID [id number] 07/13/2025 11:00 AM CDT Office Visit [facility] Multispecialty Care - [facility] 3 [facility], [address] [place] [address] Esau Hoff MD 3 [facility] [address] [place] [address] 09/13/2025 7:40 AM PATTERN SCRATCHER Office Visit [facility] Family & Internal Medicine [address] [address] Kylee Villanueva MD [address] [place] [address] [place] [address] Scheduled Procedures Name Priority Associated Diagnoses Date/Ti me INJECTION TRIGGER POINT Myofascial pain 06/07/2025 5:00 PM CDT INJECTION EPIDURAL STEROID CERVICAL Cervical radiculopathy 07/13/2025 9:00 AM CDT documented as of this encounter Visit Diagnoses Not on filedocumented in this encounter Care Teams Manager Production Relationship Specialty Start Date End Date Kylee Villanueva MD [address] [place] [address] [place] [address] PCP - General FAMILY PRACTICE 06/07/23 Alberto Avendano MD NEUROLOGICAL SURGERY 11/24/21 documented as of this encounter
--- OUTSIDE RECORDS SUMMARY | 2025-05-30 00:41 | XMS_ITS | Clinical Summary ---
Author Organization [facility] [employer] Address [address] [place] [address] Care Team Providers Care Engineering Production Liaison Name Role Phone Kylee Villanueva MD Primary Care Provider [phone] Source Comments [facility] [employer],non-owned Affiliates and Associated Physician Practices is amultiple site organization consisting of ambulatory clinics and hospital sitesin [place], [place], [place] and [place]. This disclosure is being madepursuant to the Care Everywhere program and may not contain all information available regarding this patient. Last updated 18.[facility] [employer] Allergies Active Allergy Reactions Criticality Noted Date Comments Clarithromycin Rash Medium 08/10/2023 Clindamycin Urticaria,Itching,Ra sh,U nknown Medium 09/10/2023 Food GI Discomfort 02/19/2025 Fructose intolerance Penicillins Urticaria,Elevated B lood Pressure Medium 04/06/2023 Sulfa Drugs Urticaria,Elevated B lood Pressure Medium 04/06/2023 Medications * Be aware that medications may not be up to date on this document. Alwaysverify current medications with the patient. benazepril-hydr oCHLOROthiazide (LOTENSIN HCT) 10-12.5 MG tablet Take 2 (two) tablets by mouth once daily 0 Active fluticasone propionate (FLONASE) 50 MCG/ACT nasal spray Alexander 2 (two) sprays into the nose at bedtime 2 Active levocetirizine (XYZAL) 5 MG tablet Take 1 (one) tablet by mouth 4 times daily 1 Active montelukast (SINGULAIR) 10 MG tablet Take 1 (one) tablet by mouth 9 Active Cranberry-Vitam in C 84-20 MG Take 4,200 mg by mouth 2 times daily Active gabapentin (Neurontin) 300 MG capsule TAKE 1 CAPSULE(300 MG) BY MOUTH EVERY NIGHT NEEDED 2 Active multivitamin daily tablet Take by mouth once daily Active tiZANidine (Zanaflex) 2 MG tablet Take 1 (one) tablet by mouth at bedtime Active albuterol HFA (Proventil; Ventolin; Proair) 108 (90 Base) MCG/ACT inhaler Inhale 2 (two) puffs by mouth every 4 hours as needed Every 4-6 hours prn Active HYDROcodone-ernestina taminophen (Willard) 5-325 MG tabletIndicatio ns:Post-operati ve pain Take 1 (one) tablet by mouth every 6 hours as needed for Pain 12 tablet 4 Active Additional Information Patient not taking.Reported on 04/17/2024 Restasis MultiDose 0.05 % ophthalmic suspension Instill 1 (one) drop into both eyes 4 times daily Active doxycycline hyclate (Vibramycin) 100 MG capsule 5 Active furosemide (Lasix) 20 MG tablet 4 Active meloxicam (Mobic) 15 MG tablet Take 1 (one) tablet by mouth once daily 5 Active triamcinolone acetonide (Kenalog) 0.1 % ointment 4 Active famotidine (Pepcid) 40 MG tablet Take 1 (one) tablet by mouth at bedtime 90 tablet 3 5 Active omeprazole (PriLOSEC) 40 MG capsule Take 1 (one) capsule by mouth daily before breakfast 90 capsule 3 5 Active nortriptyline (Pamelor) 10 MG capsule Take 2 (two) capsules by mouth at bedtime 60 capsule 1 5 Active Active Problems Problem Noted Date Diagnosed Date Elevated liver enzymes 01/25/2024 Dysphagia 04/06/2023 Hepatic steatosis 04/06/2023 Elevated LFTs 05/14/2022 Gastroesophageal reflux disease 05/14/2022 Family history of colon cancer 05/14/2022 Resolved Problems Problem Noted Date Diagnosed Date Resolved Date Constipation 05/14/2022 05/04/2023 Encounters Date Type Department Care Team Description 05/22/2025 Travel 05/20/2025 Results Follow-[place] [facility] [place] [address] Matthew Bolivar, [facility] [address] [place] [phone] Anitha Cramer, CLOTH MEASURER MACHINE-TACOS Results 04/12/2025 Results [place] [facility] [place] [address] Matthew Bolivar, [address] [phone] Anitha Cramer, CLOTH MEASURER MACHINE-MEMORY CARE PROGRAM DIRECTOR Results 04/11/2025 10:00 AM CDT - 04/16/2025 11:59 PM CDT [facility] [address] [place], [place] [id number] Anitha Cramer, CLOTH MEASURER MACHINE-MEMORY CARE PROGRAM DIRECTOR Discharge Disposition: Home or Self Care 03/29/2025 Travel 03/12/2025 11:00 AM CDT - 03/12/2025 11:59 PM CDT Hospital Encounter [facility] [address] [place] [address] Unknown, Provider Anitha Cramer, CLOTH MEASURER MACHINE-TACOS Gastroenterology Discharge Disposition: Home or Self Care from Last 3 Months Immunizations Immunization Administration Dates Next Due COVID MODERNA BIVALENT 12Y+ 50MCG/0.5ML 07/31/20 Covid Moderna primary monova lent 12+ yr 0.5mL 09/06/2021,01/13/2021,12/11/2020 Social History Tobacco Use Types Packs/Day Years Used Date Smoking Tobacco: Never Smokeless Tobacco: Never Alcohol Use Standard Drinks/Week Comments Yes 2 (1 standard drink = 0.6 oz pur e alcohol) social Comments No Sex and Gender Information Value Date Recorded Sex Assigned at Female 04/13/2022 2:50 PM CDT Legal Sex Female 8:10 PM CDT Gender Identity Female 04/13/2022 2:50 PM CDT Sexual Orientation Straight 04/13/2022 2: 50 PM CDT Last Filed Vital Signs Vital Sign Reading Time Taken Comments Blood Pressure 113/63 01/10/2025 11:03 AM CDT Pulse 89 01/10/2025 11:03 AM CDT Temperature 36.4 C (97.5 F) 04/17/2024 9:39 AM CDT Respiratory Rate 18 01/10/2025 11:0 3 AM CDT Oxygen Saturation 98% 01/10/2025 11: 03 AM CDT Inhaled Oxygen Concentration - - Weight 80.6 kg (177 lb 11.2 oz) 03/12/2025 3:00 PM CDT standing Height 170.2 cm (5' 7) 03/12/2025 3:00 PM CDT Body Mass Index 27.83 03/12/2025 3:00 PM CDT Plan of Treatment Upcoming Encounters Date Type Department Care Team (Late st Contact Info) Description 07/02/2025 10:00 AM CDT Video [place] [facility] [place] [address] [place] , [address] [address] Anitha Cramer, CLOTH MEASURER MACHINE-MEMORY CARE PROGRAM DIRECTOR [address] [address] Health Maintenance Due Date Last Done Comments COLOGUARD (AGES 45-75) - COLON CA SCREENING 1970 CT COLONOGRAPHY - COLON CA SCREENING 1970 FIT - COLON CA SCREENING 1970 FLEX SIG - COLON CA SCREENING 1970 HIV SCREENING 1985 DTAP/TDAP/TD VACCINES (1 - Tdap) 1989 HEPATITIS B VACCINE (1 of 3 - 19+ 3-dose series) 1989 PNEUMOCOCCAL VACCINE 50+ (1 of 1 - PCV) 2020 ZOSTER VACCINE (1 of 2) 2020 COVID-19 VACCINE ( - season) 2024 07/31/2022, 09/06/2021, 01/13/2021, Additional history exists DEPRESSION SCREENING 10/25/2024 INFLUENZA VACCINE (#1) 2025 , 08/10/2023, 08/07/2023, Additional history exists MAMMOGRAM 12/06/2025 12/06/2023, 11/25, 07/07/2021, Additional history exists PAP SMEAR 08/30/2027 08/30/2024, 08/10/2023 SCREENING FOR DIABETES 10/04/2027 , 10/04/2024, 04/10/2024, Additional history exists LIPID TESTING 12/13/2028 12/13/2023, 03/16/2022 COLON MONITORING 05/09/2031 05/09/2021, 05/09/2021 COLONOSCOPY - COLON CA SCREENING 05/09/2031 05/09/2021, 05/09/2021 Colorectal Cancer Screening 05/09/2031 HEPATITIS C SCREENING Completed 05/14/2022 HIB VACCINE Aged Out No longer eligi ble based on patient's age to complete this topic HPV VACCINE Aged Out No longer eligi ble based on patient's age to complete this topic MENINGOCOCCAL (Group B) VACCINE SHARED DECISION-MAKING Aged Out No longer eligible based on patient's age to complete this topic MENINGOCOCCAL GROUPS A/C/Y/W VACCINE Aged Out No longer eligible based on patient's age to complete this topic Procedures Procedure Name Priority Date/Time Associated Diagnosis Comments HEPATIC FUNCTION PANEL Routine 05/18/2025 6:23 AM CDT Elevated LFTs NM GASTRIC EMPTYING Routine 04/11/2025 2 :18 PM CDT Generalized abdominal pain BASIC METABOLIC PANEL (CALCIUM TOTAL) STAT 04/10/2024 7:51 AM CDT Preoperative examination HEPATITIS C AB W/RFLX TO HCV RNA QN PCR Routine 05/14/2022 2:41 PM CDT Elevated LFTs from Last 3 Months or Most Recently Relevant to Health Maintenance Results * HEPATIC FUNCTION PANEL (05/18/2025 6:23 AM CDT) Protein Total 7.4 6.1 - 8.1 g/dL [facility] Albumin 4.7 3.6 - 5.1 g/dL [facility] Globulin Total 2.7 1.9 - 3.7 g/dL (calc) [facility] Albumin/Globulin Ratio 1.7 1.0 - 2.5 (calc) [facility] Bilirubin Total 0.7 0.2 - 1.2 mg/dL [facility] Bilirubin Direct 0.1 < OR = 0.2 mg/dL [facility] Bilirubin Indirect 0.6 0.2 - 1.2 mg/dL (calc) [facility] Alkaline Phosphatase 81 37 - 153 U/L [facility] AST 23 10 - 35 U/L [facility] ALT 29 6 - 29 U/L [facility] Comment: Test Performed at: [facility] [place] [address] [address] [id number] ROSARIO ARAUJO MD Blood BLOOD SPECIMEN / Unknown 05/18/2025 6:23 AM CDT 05/18/2025 6:23 AM CDT us Anitha Craemr CLOTH MEASURER MACHINE-MEMORY CARE PROGRAM DIRECTOR LAB - CHEMISTRY ORDERAB LES Final Result [facility] [address] [place] [address] * NM Gastric Emptying (04/11/2025 2:18 PM CDT) Anatomical Region Laterality Modality Abdomen Nuclear Medicine 04/11/2025 4:11 PM CDT Impressions 04/11/2025 4:12 PM CDT IMPRESSION: Mildly delayed gastric emptying with abnormally elevated gastric retention at 2 hours and 3 hours as described above. > Interpreting Provider: Solitario Valentin MD on 04/11/2025 4:12 PM Narrative 04/11/2025 4:12 PM CDT PROCEDURE(s): NM GASTRIC EMPTYING DATE AND TIME OF EXAM(s): 04/11/2025 2:19 PM INDICATION(s): R10.84: Generalized abdominal pain. COMPARISON(s): None available. TECHNIQUE: Patient consumed 1.1 mCi of Tc-99 sulfur colloid in eggs with 4 oz of water over 4 minutes and consumed 100% of eggs without any incident. Anterior and posterior standing images were acquired for 1 minute immediately, at 30 minutes, and every 60 minutes there after post meal for total duration of 4 hours. FINDINGS: Gastric Retention: 30 Minutes: 90.37% (normal is greater than 70 % retention) 1 Hour: 81.93% (normal is 30 to 90% retention) 2 Hours: 61.74% (normal is up to 60% retention) 3 Hours: 34.65% (normal is up to 30% retention) 4 Hours: 1.87% (normal is up to 10% retention) Greater values suggest delayed gastric emptying or stasis. Lesser values suggest rapid gastric emptying or gastric dumping. Procedure Note Solitario Valentin MD - 04/11/2025 PROCEDURE(s): NM GASTRIC EMPTYING DATE AND TIME OF EXAM(s): 04/11/2025 2:19 PM INDICATION(s): R10.84: Generalized abdominal pain. COMPARISON(s): None available. TECHNIQUE: Patient consumed 1.1 mCi of Tc-99 sulfur colloid in eggs with 4 oz ofwater over 4 minutes and consumed 100% of eggs without any incident. Anteriorand posterior standing images were acquired for 1 minute immediately, at 30 minutes, and every 60 minutes there after post meal for total duration of4 hours. FINDINGS: Gastric Retention: 30 Minutes: 90.37% (normal is greater than 70 % retention) 1 Hour: 81.93% (normal is 30 to 90% retention) 2 Hours: 61.74% (normal is up to 60% retention) 3 Hours: 34.65% (normal is up to 30% retention) 4 Hours: 1.87% (normal is up to 10% retention) Greater values suggest delayed gastric emptying or stasis. Lesser values suggest rapid gastric emptying or gastric dumping. IMPRESSION: Mildly delayed gastric emptying with abnormally elevated gastricretention at 2 hours and 3 hours as described above. > Interpreting Provider: Solitario Valentin MD on 04/11/2025 4:12 PM us Anitha Cramer CLOTH MEASURER MACHINE-MEMORY CARE PROGRAM DIRECTOR NM ORDERABLES Final R esult * (ABNORMAL) BASIC METABOLIC PANEL (CALCIUM TOTAL) (04/10/2024 7:51 AM CDT) Glucose 102 70 - 105 mg/dL 04/10/2024 8:10 AM CDT [facility] Sodium 141 136 - 145 mmol/L 04/10/2024 8:10 AM CDT [facility] Potassium 3.7 3.5 - 5.1 mmol/L 04/10/2024 8:10 AM CDT [facility] Chloride 108(H) 98 - 107 mmol/L 04/10/2024 8:10 AM CDT [facility] CO2 23 22 - 29 mmol/L 04/10/2024 8:10 AM CDT [facility] Calcium 9.7 8.4 - 10.4 mg/dL 04/10/2024 8:10 AM CDT [facility] Anion Gap 10 6 - 16 mmol/L 04/10/2024 8:10 AM CDT [facility] BUN 23 7 - 26 mg/dL 04/10/2024 8:10 AM CDT [facility] Creatinine 0.88 0.57 - 1.11 mg/dL 04/10/2024 8:10 AM CDT [facility] eGFR by CKD-EPI 79(L) >=90 mL/min/1.7 3 m2 04/10/2024 8:10 AM CDT [facility] Blood BLOOD SPECIMEN / Unknown Venipuncture / Unknown 04/10/2024 7:51 AM CDT 04/10/2024 7:54 AM CDT Janet Ely DO LAB - CHEMISTRY ORDERABLES Nasra nguyen Result [facility] [address] [place] [address] * HEPATITIS C AB W/RFLX TO HCV RNA QN PCR (05/14/2022 2:41 PM CDT) Hepatitis C Antibody NON-REACTI VE NON-REACT SOL [facility] Signal to Cut-Off 0.01 <1.00 [facility] Comment: HCV antibody was non-reactive. There is no laboratory evidence of HCV infection. In most cases, no further action is required. However, if recent HCV exposure is suspected, a test for HCV RNA (test code 26713) is suggested. For additional information please refer to http://education.EDAN/faq/YBN00i5 (This link is being provided for informational/ educational purposes only.) Test Performed at: [facility] [address] [place] [address] SHAKIR HOLLIS DO,MPH Blood BLOOD SPECIMEN / Unknown 05/14/2022 2:41 PM CDT 05/14/2022 2:42 PM CDT us Anitha Cramer CLOTH MEASURER MACHINE-MEMORY CARE PROGRAM DIRECTOR LAB - CHEMISTRY ORDERAB LES Final Result [facility] [address] [place] [address] from Last 3 Months or Most Recently Relevant to Health Maintenance Insurance [facility] Care Teams Engineering Production Liaison Relationship Specialty Start [place] [address] [address] PCP - General Family Medicine 01/25/24
--- OUTSIDE RECORDS SUMMARY | 2025-05-30 00:41 | XMS_ITS | Encounter Summary ---
Author Organization [facility] Address [facility] [place] [address] Care Team Providers Care Filenet P8 Developer Name Role Phone Viv Hamm Primary Care Provider [phone] Alberto Avendano MD Unavailable [phone] Kylee Villanueva MD Primary Care Provider [phone] Encounter Details Date Type Department Care Team (Late st Contact Info) Description 04/08/2021 [employer] Message Enc [facility] Medical [facility] General Surgery [address], [address] [place] [address] Tracy Godoy MD [address] [address] Other Social History Tobacco Use [...] Assigned at Female 11/14/2024 2:54 PM DIRECTOR ALUMNI RELATIONS Legal Sex Female 11:06 AM CDT Gender [...] Description 06/07/2025 5:00 PM CDT Hospital Encounter [facility] Interventional [place] [address] [id number] Elizabeth Ryder MD Three [address] [address] 06/07/2025 5:00 PM CDT - 06/07/2025 5:20 PM CDT Surgery [facility] [place] [address] [id number] Elizabeth Ryder MD [address] [address] INJECTION TRIGGER POINT-cervivcal/th oracic 06/11/2025 2:40 PM CDT Office Visit [facility] Medical Group Orthopedic & Sports Medicine - [place] [address] [place] [address] Reynaldo Bunch MD [address] [place] [address] 07/13/2025 9:00 AM CDT Hospital Encounter [facility] [place] [address] [id number] Elizabeth Ryder MD Three [facility] [address] [place] [address] 07/13/2025 9:00 AM CDT - 07/13/2025 9:20 AM CDT Surgery [facility] Interventional Pain [place] [address] [id number] Elizabeth Ryder MD Three [facility] [address] [place] [address] INJECTION EPIDURAL STEROID [id number] 07/13/2025 11:00 AM CDT Office Visit [facility] Multispecialty Care - [facility] [address] [facility] [address] [place] [address] Esau Hoff MD [address] [facility] [address] [place] [address] 09/13/2025 7:40 AM DIRECTOR ALUMNI RELATIONS Office Visit [facility] Medical [facility] Family & Internal Medicine - [address] [address] Kylee Villanueva MD [address] [place] [address] [place] [address] [id number] Scheduled Procedures Name Priority Associated Diagnoses Date/Ti me INJECTION TRIGGER POINT Myofascial pain 06/07/2025 5:00 PM CDT INJECTION EPIDURAL STEROID CERVICAL Cervical radiculopathy 07/13/2025 9:00 AM CDT documented as of this encounter Visit Diagnoses Not on filedocumented in this encounter Additional Health Concerns Infection Onset Date Last Indicated Resolved Time COVID-19 Rule Out 12/13/2023 12/13/2023 12/13/2023 8:54 AM DIRECTOR ALUMNI RELATIONS COVID-19 Rule Out 08/30/2024 08/30/2024 08/30/2024 8:14 AM DIRECTOR ALUMNI RELATIONS COVID-19 Rule Out 11/03/2024 11/03/2024 11/03/2024 10:48 AM DIRECTOR ALUMNI RELATIONS documented as of this encounter Care Teams Filenet P8 Developer Relationship Specialty [place] [address] [place] [address] PCP - General PHYSICIAN ROLL ON WORKER 02/03/21 06/06/23 [place] [address] [place] [address] PCP - General FAMILY PRACTICE 06/07/23 [place] [address] [place] [address] NEUROLOGICAL SURGERY 11/24/21 documented as of this encounter
--- OUTSIDE RECORDS SUMMARY | 2025-05-30 00:41 | XMS_ITS | Encounter Summary ---
Author Organization [facility] Address [address] [place] [address] Care Team Providers Care Injection Molding Process Technician Name Role Phone Alberto Avendano MD Unavailable [phone] Kylee Villanueva MD Primary Care Provider [phone] Encounter Details Date Type Department Care Team (Late st Contact Info) Description 01/22/2025 [employer] Message Enc [facility] Medical Group Orthopedic & Sports Medicine - [place] [address] [place] [address] Merrill Hammond MD [address] [place] [address] Earlier appt Social History Tobacco Use Types [...] Sex Assigned at Female 11/14/2024 2:54 PM DUPLICATING MACHINE OPERATOR Legal Sex Female 11:06 AM CDT Gender Identity Female 05/11/2025 1:56 PM CDT Sexual Orientation Not on file documented as of this encounter Plan of Treatment Upcoming Encounters Date Type Department Care Team (Latest Contact Info) Description 06/07/2025 5:00 PM CDT Hospital Encounter [facility] [place] [address] [id number] Elizabeth Ryder MD Three [address] [address] 06/07/2025 5:00 PM CDT - 06/07/2025 5:20 PM CDT Surgery [facility] [place] [address] [id number] Elizabeth Ryder MD Three [address] [address] INJECTION TRIGGER POINT-cervivcal/th oracic 06/11/2025 2:40 PM CDT Office Visit [facility] Medical Group Orthopedic & Sports Medicine - [place] [address] [place] [address] Reynaldo Bunch MD [address] [place] [address] 07/13/2025 9:00 AM CDT Hospital Encounter [facility] Inter[place] [address] [id number] Elizabeth Ryder MD Three [address] [address] 07/13/2025 9:00 AM CDT - 07/13/2025 9:20 AM CDT Surgery [facility] Interventional Pain Management [place] [address] [id number] Elizabeth Ryder MD Three [facility] [address] [place] [address] INJECTION EPIDURAL STEROID [id number] 07/13/2025 11:00 AM CDT Office Visit [facility] Medical [facility] Multispecialty Care - [facility] [address] [facility], [address] [place] [address] Esau Hoff MD 3 [facility] [address] [place] [address] 09/13/2025 7:40 AM DUPLICATING MACHINE OPERATOR Office Visit [facility] Medical [facility] Family & Internal Medicine [address] [address] [place]an[place] [address] [facility] [address] [place] [address] Scheduled Procedures Name Priority Associated Diagnoses Date/Ti me INJECTION TRIGGER POINT Myofascial pain 06/07/2025 5:00 PM CDT INJECTION EPIDURAL STEROID CERVICAL Cervical radiculopathy 07/13/2025 9:00 AM CDT documented as of this encounter Visit Diagnoses Not on filedocumented in this encounter Additional Health Concerns Assessment Noted Time PHQ-9 Depression Total Score: 2 12/11/19 25 1:50 PM DUPLICATING MACHINE OPERATOR documented as of this encounter Care Teams Injection Molding Process Technician Relationship Specialty [place] [address] [facility] [place] [address] PCP - General FAMILY PRACTICE 06/07/23 Alberto Avendano MD NEUROLOGICAL SURGERY 11/24/21 documented as of this encounter
--- OUTSIDE RECORDS SUMMARY | 2025-05-30 00:41 | XMS_ITS | Encounter Summary ---
Author Organization [facility] Address Pending sale to [facility] [place] [address] Care Team Providers Care Marking Devices Assembler Name Role Phone Viv Hamm Primary Care Provider [phone] Alberto Avendano MD Unavailable [phone] Kylee Villanueva MD Primary Care Provider [phone] Encounter Details Date Type Department Care Team (Late st Contact Info) Description 04/02/2021 [employer] Message Enc [facility] Medical Group General Surgery [address], [address] [place] [address] Tracy Godoy MD [address] [address] Other Social History Tobacco Use [...] Sex Assigned at Female 11/14/2024 2:54 PM CONTROLS OPERATOR MOLDED GOODS Legal Sex Female 11:06 AM CDT Gender [...] Description 06/07/2025 5:00 PM CDT Hospital Encounter [facility] Interventional Pain [place] [address] [id number] Elizabeth Ryder MD Three [address] [address] 06/07/2025 5:00 PM CDT - 06/07/2025 5:20 PM CDT Surgery [facility] Interventional [place] [address] [id number] Elizabeth Ryder MD Three [address] [address] INJECTION TRIGGER POINT-cervivcal/th oracic 06/11/2025 2:40 PM CDT Office Visit [facility] Medical Group Orthopedic & Sports Medicine - [place] [address] [place] [address] Reynaldo Bunch MD [address] [place] [address] 07/13/2025 9:00 AM CDT Hospital Encounter [facility] Interventional [place] [address] [id number] Elizabeth Ryder MD Three [facility] [address] [place] [address] 07/13/2025 9:00 AM CDT - 07/13/2025 9:20 AM CDT Surgery [facility] Interventional [place] [address] [id number] Elizabeth Ryder MD Three [facility] [address] [place] [address] INJECTION EPIDURAL STEROID [id number] 07/13/2025 11:00 AM CDT Office Visit [facility] Multispecialty Care - [facility] 3 [facility] [address] [place] [address] Esau Hoff MD 3 [facility] [address] [place] [address] 09/13/2025 7:40 AM CONTROLS OPERATOR MOLDED GOODS Office Visit [facility] Medical [facility] Family & Internal Medicine - [address] [address] Kylee Villanueva MD [address] [place] [address] [place] [address] [id number] Scheduled Procedures Name Priority Associated Diagnoses Date/Ti me INJECTION TRIGGER POINT Myofascial pain 06/07/2025 5:00 PM CDT INJECTION EPIDURAL STEROID CERVICAL Cervical radiculopathy 07/13/2025 9:00 AM CDT documented as of this encounter Visit Diagnoses Not on filedocumented in this encounter Additional Health Concerns Infection Onset Date Last Indicated Resolved Time COVID-19 Rule Out 12/13/2023 12/13/2023 12/13/2023 8:54 AM CONTROLS OPERATOR MOLDED GOODS COVID-19 Rule Out 08/30/2024 08/30/2024 08/30/2024 8:14 AM CONTROLS OPERATOR MOLDED GOODS COVID-19 Rule Out 11/03/2024 11/03/2024 11/03/2024 10:48 AM CONTROLS OPERATOR MOLDED GOODS documented as of this encounter Care Teams Marking Devices Assembler Relationship Specialty [place] [address] [place] [address] PCP - General PHYSICIAN ACID TREATER 02/03/21 06/06/23 [place] [address] [place] [address] PCP - General FAMILY PRACTICE 06/07/23 [place] [address] [place] [address] NEUROLOGICAL SURGERY 11/24/21 documented as of this encounter
--- OUTSIDE RECORDS SUMMARY | 2025-05-30 00:41 | XMS_ITS | Encounter Summary ---
Author Organization [facility] Address [address] [place] [address] Care Team Providers Care Floor Trader Name Role Phone Alberto Avendano MD Unavailable [phone] Kylee Villanueva MD Primary Care Provider [phone] Encounter Details Date Type Department Care Team (Late st Contact Info) Description 02/02/2025 Zafgent Message Enc [facility] Medical Group Orthopedic & Sports Medicine - [place] [address] [place] [address] Merrill Hammond MD [address] [place] [address] MRIs Social History Tobacco Use Types Packs/Day Years [...] Sex Assigned at Female 11/14/2024 2:54 PM SITE FOREMAN Legal Sex Female 11:06 AM CDT Gender Identity Female 05/11/2025 1:56 PM CDT Sexual Orientation Not on file documented as of this encounter Plan of Treatment Upcoming Encounters Date Type Department Care Team (Latest Contact Info) Description 06/07/2025 5:00 PM CDT Hospital Encounter [facility] [place] [address] [id number] Elizabeth Ryder MD Three [address] [address] 06/07/2025 5:00 PM CDT - 06/07/2025 5:20 PM CDT Surgery [facility] [place]ventional [place] [address] [id number] Elizabeth Ryder MD Three [address] [address] INJECTION TRIGGER POINT-cervivcal/th oracic 06/11/2025 2:40 PM CDT Office Visit [facility] Medical Group Orthopedic & Sports Medicine - [place] [address] [place] [address] Reynaldo Bunch MD [address] [place] [address] 07/13/2025 9:00 AM CDT Hospital Encounter [facility] [place]ventional [place] [address] [id number] Elizabeth Ryder MD Three [address] [address] 07/13/2025 9:00 AM CDT - 07/13/2025 9:20 AM CDT Surgery [facility] Interventional Pain [place] [address] [id number] Elizabeth Ryder MD Three [facility] [address] [place] [address] INJECTION EPIDURAL STEROID [id number] 07/13/2025 11:00 AM CDT Office Visit [facility] Multispecialty Care - [facility] 3 [facility] [address] [place] [address] Esau Hoff MD 3 [facility] [address] [place] [address] 09/13/2025 7:40 AM SITE FOREMAN Office Visit [facility] Medical [facility] Family & Internal Medicine [address] [address] [place] [address] [facility] [address] [place] [address] Scheduled Procedures Name Priority Associated Diagnoses Date/Ti me INJECTION TRIGGER POINT Myofascial pain 06/07/2025 5:00 PM CDT INJECTION EPIDURAL STEROID CERVICAL Cervical radiculopathy 07/13/2025 9:00 AM CDT documented as of this encounter Visit Diagnoses Not on filedocumented in this encounter Additional Health Concerns Assessment Noted Time PHQ-9 Depression Total Score: 2 12/11/19 25 1:50 PM SITE FOREMAN documented as of this encounter Care Teams Floor Trader Relationship Specialty [place] [address] [facility]. [address] [place] [address] PCP - General FAMILY PRACTICE 06/07/23 Alberto Avendano MD NEUROLOGICAL SURGERY 11/24/21 documented as of this encounter
--- OUTSIDE RECORDS SUMMARY | 2025-05-30 00:41 | XMS_ITS | Encounter Summary ---
Author Organization [facility] Address [facility] [place] [address] Care Team Providers Care Program Director/Traffic Director Name Role Phone Viv Hamm Primary Care Provider [phone] Alberto Avendano MD Unavailable [phone] Kylee Villanueva MD Primary Care Provider [phone] Encounter Details Date Type Department Care Team (Late st Contact Info) Description 10/20/2021 MyChart Message Enc [facility] Medical Group Multispecialty Care - [facility] [address] [facility] [address], [address] [place] [address] Shane Noble MD 1 [place] [address] Orbital MRI Social History Tobacco Use Types Packs/Day [...] Assigned at Female 11/14/2024 2:54 PM MANAGER FAST FOOD Legal Sex Female 11:06 AM CDT Gender Identity Female 05/11/2025 1:56 PM CDT Sexual Orientation Not on file COVID-19 Exposure Response Date Recorded In the last month, have you been in contact with someone who was confirmed or suspected to have Coronavirus / COVID-19? No / Unsure 10/21/2021 7:39 AM MANAGER FAST FOOD documented as of this encounter Plan of Treatment Upcoming Encounters Date Type Department Care Team (Latest Contact Info) Description 06/07/2025 5:00 PM CDT Hospital Encounter [facility] Interventional [place] [address] [id number] Elizabeth Ryder MD Three [address] [address] 06/07/2025 5:00 PM CDT - 06/07/2025 5:20 PM CDT Surgery [facility] Interventional [place] [address] [id number] Elizabeth Ryder MD [address] [address] INJECTION TRIGGER POINT-cervivcal/th oracic 06/11/2025 2:40 PM CDT Office Visit [facility] Medical Group Orthopedic & Sports Medicine - [place] [address] [place] [address] Reynaldo Bunch MD [address] [place] [address] 07/13/2025 9:00 AM CDT Hospital Encounter [facility] Interventional [place] [address] [id number] Elizabeth Ryder MD Three [facility] [address] [place] [address] 07/13/2025 9:00 AM CDT - 07/13/2025 9:20 AM CDT Surgery [facility] Interventional [place] [address] [id number] Elizabeth Ryedr MD Three [facility] [address] [place] [address] INJECTION EPIDURAL STEROID [id number] 07/13/2025 11:00 AM CDT Office Visit [facility] Multispecialty Care - [facility] 3 [facility], [address] [place] [address] Esau Hoff MD [address] [address] 09/13/2025 7:40 AM MANAGER FAST FOOD Office Visit [facility] Medical [facility] Family & Internal Medicine - [address] [address] Kylee Villanueva MD [address] [place] [address] [place] [address] Scheduled Procedures Name Priority Associated Diagnoses Date/Ti me INJECTION TRIGGER POINT Myofascial pain 06/07/2025 5:00 PM CDT INJECTION EPIDURAL STEROID CERVICAL Cervical radiculopathy 07/13/2025 9:00 AM CDT documented as of this encounter Visit Diagnoses Not on filedocumented in this encounter Additional Health Concerns Infection Onset Date Last Indicated Resolved Time COVID-19 Rule Out 12/13/2023 12/13/2023 12/13/2023 8:54 AM MANAGER FAST FOOD COVID-19 Rule Out 08/30/2024 08/30/2024 08/30/2024 8:14 AM MANAGER FAST FOOD COVID-19 Rule Out 11/03/2024 11/03/2024 11/03/2024 10:48 AM MANAGER FAST FOOD documented as of this encounter Care Teams Program Director/Traffic Director Relationship Specialty [place] [address] [place] [address] PCP - General PHYSICIAN SPRAY GUNNER 02/03/21 06/06/23 [place] [address] [address] [place] [address] PCP - General FAMILY PRACTICE 06/07/23 [place] [address] [place] [address] NEUROLOGICAL SURGERY 11/24/21 documented as of this encounter
--- OUTSIDE RECORDS SUMMARY | 2025-05-30 00:41 | XMS_ITS | Encounter Summary ---
Author Organization [facility] [place] [facility] Address [address] [place] [address] Phone Care Team Providers Care Cath Lab Name Role Phone Shane Noble MD Unavailable [phone] Kylee Villanueva MD Primary Care Provider [phone] Reynaldo Bunch MD Unavailable [phone] Reason for Visit * Reason Onset Date Comments Autonomic testing for dizziness 08/11/2024 Encounter Details Date Type Department Care Team (Late st Contact Info) Description 08/11/2024 Telephone [facility] Neuro Muscle [address] [facility] 6th [place] [address] [place] [address] Augustina Christie CMA Autonomic testing for dizziness Social History Tobacco Use Types Packs/Day Years [...] 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 [place] [address] PCP - General Family Medicine 07/12/23 Shane Noble MD [address] [phone] Fellow Neurology 08/17/22 Reynaldo Bunch MD [address] [facility] [place] [address] Orthopedic Surgery 08/10/23 documented as of this encounter
--- OUTSIDE RECORDS SUMMARY | 2025-05-30 00:42 | XMS_ITS | Encounter Summary ---
Author Organization [facility] Address [address] [place] [address] Care Team Providers Care Fisher Diving Name Role Phone Alberto Avendano MD Unavailable [phone] Kylee Villanueva MD Primary Care Provider [phone] Encounter Details Date Type Department Care Team (Late st Contact Info) Description 03/01/2025 Innovandt Message Enc [facility] Medical Group Orthopedic & Sports Medicine - [place] [address] [place], [place] [phone] Merrill Hammond MD [address] [place] [address] Referral Social History Tobacco Use Types Packs/Day Years [...] Sex Assigned at Female 11/14/2024 2:54 PM ACADEMIC DEPARTMENT CHAIR Legal Sex Female 11:06 AM CDT Gender Identity Female 05/11/2025 1:56 PM CDT Sexual Orientation Not on file documented as of this encounter Plan of Treatment Upcoming Encounters Date Type Department Care Team (Latest Contact Info) Description 06/07/2025 5:00 PM CDT Hospital Encounter [facility] Interventional [place] [address] [id number] Elizabeth Ryder MD Three [address] [address] 06/07/2025 5:00 PM CDT - 06/07/2025 5:[address] [facility] Interventional [place] [address] [id number] Elizabeth Ryder MD Three [address] [address] INJECTION TRIGGER POINT-cervivcal/th oracic 06/11/2025 2:40 PM CDT Office Visit [facility] Medical Group Orthopedic & Sports Medicine - [place] [address] [place] [address] Reynaldo Bunch MD [address] [place] [address] 07/13/2025 9:00 AM CDT Hospital Encounter [facility] Interventional [place] [address] [id number] Elizabeth Ryder MD Three [address] [address] 07/13/2025 9:00 AM CDT - 07/13/2025 9:[address] [facility] Interventional Pain [place] [address] [id number] Elizabeth Ryder MD Three [facility] [address] [place] [address] INJECTION EPIDURAL STEROID [id number] 07/13/2025 11:00 AM CDT Office Visit [facility] Multispecialty Care - [facility] 3 [facility] [place] [address] Esau Hoff MD 3 [facility] [address] [place] [address] 09/13/2025 7:40 AM ACADEMIC DEPARTMENT CHAIR Office Visit [facility] Medical [facility] Family & Internal Medicine - [address] [address] [place] [address] [facility] [address] [place] [address] Scheduled Procedures Name Priority Associated Diagnoses Date/Ti me INJECTION TRIGGER POINT Myofascial pain 06/07/2025 5:00 PM CDT INJECTION EPIDURAL STEROID CERVICAL Cervical radiculopathy 07/13/2025 9:00 AM CDT documented as of this encounter Visit Diagnoses Not on filedocumented in this encounter Additional Health Concerns Assessment Noted Time PHQ-9 Depression Total Score: 2 12/11/19 25 1:50 PM ACADEMIC DEPARTMENT CHAIR documented as of this encounter Care Teams Fisher Diving Relationship Specialty Start [place] [address] [facility]. [address] [place] [address] PCP - General FAMILY PRACTICE 06/07/23 Alberto Avendano MD NEUROLOGICAL SURGERY 11/24/21 documented as of this encounter
--- OUTSIDE RECORDS SUMMARY | 2025-05-30 00:42 | XMS_ITS | Encounter Summary ---
Author Organization [facility] Address [facility] [place] [address] Care Team Providers Care Magnetic Prospector Name Role Phone Viv Hamm Primary Care Provider [phone] Alberto Avendano MD Unavailable [phone] Kylee Villanueva MD Primary Care Provider [phone] Encounter Details Date Type Department Care Team (Late st Contact Info) Description 02/04/2022 MyChart Message Enc [facility] Medical Group Multispecialty Care - [facility] [address] [facility] [address], [address] [place] [address] Shane Noble MD 1 [place] [address] SED Rate Social History Tobacco Use Types Packs/Day Years [...] Sex Assigned at Female 11/14/2024 2:54 PM ROUGH RIB GRADER Legal Sex Female 11:06 AM CDT Gender Identity Female 05/11/2025 1:56 PM CDT Sexual Orientation Not on file COVID-19 Exposure Response Date Recorded In the last 10 days, have yo u been in contact with someone who was confirmed or suspected to have Coronavirus/COVID-19? No / Unsure 01/31/2022 9:12 AM CDT documented as of this encounter Plan of Treatment Upcoming Encounters Date Type Department Care Team (Latest Contact Info) Description 06/07/2025 5:00 PM CDT Hospital Encounter [facility] Interventional [place] [address] [id number] Elizabeth Ryder MD Three [address] [address] 06/07/2025 5:00 PM CDT - 06/07/2025 5:20 PM CDT Surgery [facility] [place] [address] [id number] Elizabeth Ryder MD Three [address] [address] INJECTION TRIGGER POINT-cervivcal/th oracic 06/11/2025 2:40 PM CDT Office Visit [facility] Medical Group Orthopedic & Sports Medicine - [place] [address] [place] [address] Reynaldo Bunch MD [address] [place] [address] 07/13/2025 9:00 AM CDT Hospital Encounter [facility] [place] [address] [id number] Elizabeth Ryder MD Three [facility] [address] [place] [address] 07/13/2025 9:00 AM CDT - 07/13/2025 9:20 AM CDT Surgery [facility] Interventional [place] [address] [id number] Elizabeth Ryder MD Three [facility] [address] [place] [address] INJECTION EPIDURAL STEROID [id number] 07/13/2025 11:00 AM CDT Office Visit [facility] Multispecialty Care - [facility] 3 [facility], [address] [place] [address] Esau Hoff MD 3 [facility] [address] [place] [address] 09/13/2025 7:40 AM ROUGH RIB GRADER Office Visit [facility] Medical [facility] Family & Internal Medicine - [address] [address] Kylee Villanueva MD [address] [place] [address] [place] [address] Scheduled Procedures Name Priority Associated Diagnoses Date/Ti me INJECTION TRIGGER POINT Myofascial pain 06/07/2025 5:00 PM CDT INJECTION EPIDURAL STEROID CERVICAL Cervical radiculopathy 07/13/2025 9:00 AM CDT documented as of this encounter Visit Diagnoses Not on filedocumented in this encounter Additional Health Concerns Infection Onset Date Last Indicated Resolved Time COVID-19 Rule Out 12/13/2023 12/13/202312/13/2023 8:54 AM ROUGH RIB GRADER COVID-19 Rule Out 08/30/2024 08/30/2024 08/30/2024 8:14 AM ROUGH RIB GRADER COVID-19 Rule Out 11/03/2024 11/03/2024 11/03/2024 10:48 AM ROUGH RIB GRADER documented as of this encounter Care Teams Magnetic Prospector Relationship Specialty [place] [address] [place] [address] PCP - General PHYSICIAN LARDER COOK 02/03/21 06/06/23 [place] [address] [address] [place] [address] PCP - General FAMILY PRACTICE 06/07/23 [place] [address] [place] [address] NEUROLOGICAL SURGERY 11/24/21 documented as of this encounter
--- OUTSIDE RECORDS SUMMARY | 2025-05-30 00:42 | XMS_ITS | Clinical Summary ---
Author Organization [facility] Address [address] [place] [address] Care Team Providers Care Assistant Property Manager Name Role Phone Alberto Avendano MD Unavailable [phone] Kylee Villanueva MD Primary Care Provider [phone] Allergies Active Allergy Reactions Criticality Noted Date Comments Clarithromycin Rash Medium 08/10/2023 Clindamycin Hives,Rash Low 09/11/2023 Sulfa Antibiotics Rash,Hives,Shortness of Breath High 10/14/2009 Medications montelukast 10 MG tablet Take 1 tablet (10 mg total) by mouth daily. 01/10/20 21 Active levocetirizine 5 MG Tab Take 1 tablet (5 mg total) by mouth 4 (four) times daily. 03/20/20 21 Active fluticasone propionate (FLONASE) 50 MCG/ACT nasal spray 2 sprays by Nasal route daily. 03/16/20 22 Active gabapentin (NEURONTIN) 300 MG capsuleIndicatio ns:Neuropathic pain TAKE 1 CAPSULE(300 MG) BY MOUTH EVERY NIGHT NEEDED 30 capsule 5 06/10/20 22 Active Cranberry-Vitami n C 84-20 MG Cap Take 4,200 mg by mouth daily. Active famotidine (PEPCID) 40 MG tablet Take 1 tablet (40 mg total) by mouth. 05/11/20 23 Active omeprazole (PRILOSEC) 20 MG capsule Take 2 capsules (40 mg total) by mouth 2 (two) times a day. 09/21/20 23 Active multi vitamin/minerals (THERA-M ENHANCED) tablet Take 1 tablet by mouth daily. Active RESTASIS MULTIDOSE 0.05 % ophthalmic emulsion Place 1 drop into both eyes 2 (two) times a day. 12/04/19 25 Active benazepril-hydro CHLOROthiazide (LOTENSIN HCT) 10-12.5 MG tabletIndication s:Primary hypertension Take 2 tablets by mouth daily. 180 tablet 3 01/13/20 25 Active hydroxychloroqui ne (PLAQUENIL) 200 MG tablet Take 1 tablet (200 mg total) by mouth 2 (two) times daily. 01/31/20 25 Active diclofenac EC (VOLTAREN) 75 MG tablet Take 1 tablet (75 mg total) by mouth. 01/31/20 25 Active nortriptyline (PAMELOR) 10 MG capsule Take 1 capsule (10 mg total) by mouth. 02/28/20 25 Active DULoxetine (CYMBALTA) 30 MG capsule Take 1 capsule (30 mg total) by mouth daily. 02/23/20 25 025 Discontinued nortriptyline (PAMELOR) 25 MG capsule Take 1 capsule (25 mg total) by mouth. 03/12/20 25 025 Discontinued(Do se adjustment) Active Problems Problem Noted Date Diagnosed Date Gastroparesis 05/15/2025 Cervical disc disease 05/15/2025 Decreased peripheral vision, left 10/31/2024 Dry eyes 08/21/2024 Ptosis of left eyelid 08/21/2024 Cervical stenosis of spinal canal 07/19/2024 Sjogren syndrome (HHS/HCC) 06/05/2024 Small fiber neuropathy 05/24/2024 Cervical facet joint syndrome 05/15/2024 Cervical radiculopathy 05/08/2024 Myofascial pain 02/24/2024 Elevated liver enzymes 01/25/2024 EARNEST on CPAP 12/13/2023 Vocal cord paralysis 12/13/2023 Dysphagia 04/06/2023 Hepatic steatosis 04/06/2023 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 Vocal cord dysfunction 01/03/2023 Lumbar radiculopathy 09/09/2022 Overview (09/09/2022): Added automatically from request for surgery [id number] Lumbar facet arthropathy 08/21/2022 Overview (08/21/2022): Added automatically from request for surgery [id number] NAFLD (nonalcoholic fatty liver disease) 022 Elevated LFTs 05/14/2022 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 Family history of colon cancer 03/17/2021 Hypertension 02/26/2021 GERD (gastroesophageal reflux disease) Environmental and seasonal allergies 02/26/2021 Resolved Problems Problem Noted Date Diagnosed Date Resolved Date Calculus of gallbladder with out cholecystitis without obstruction 04/10/2022 12/11/2024 ALT (SGPT) level raised 04/10/2022 11/0 03/2024 Heartburn 03/17/2021 08/30/2024 Encounters Date Type Department Care Team Description 05/25/2025 Scan [employer] [facility] Scanned, [facility] 05/22/2025 MyChart Message Enc [facility] Orthopedic & Sports Medicine [place] [address] [place] [address] Nitin Vaca MD Cast 05/21/2025 10:00 AM CDT Office Visit [facility] Orthopedic & Sports Medicine [facility] [address] [place] [address] Nitin Vaca MD Follow Up (Right tfcc) 05/21/2025 Travel 05/17/2025 MyChart Message Enc [facility] Family & Internal Medicine [address] [phone] Kylee Villanueva MD Intermittent FMLA 05/16/2025 Scan [employer] [facility] Scanned, [facility] 05/15/2025 MyChart Message Enc [facility] [place] [address] [place] [address] Nitin Vaca MD Injections 05/11/2025 2:00 PM CDT Office Visit [facility] Family & Internal Medicine [address] [phone] Kylee Villanueva MD Follow Up (3 mo f/u- Hypertension- Intermittent FMLA , would like an extension ) 05/11/2025 Travel 05/04/2025 MyChart Message Enc [facility] [place] [address] [id number] Elizabeth Ryder MD Steroid Shots 05/02/2025 MyChart Message Enc [facility] Family & Internal Medicine [facility] [address] [place] [address] Kylee Villanueva MD Anxiety 04/30/2025 MyChart Message Enc [facility] Orthopedic & Sports [facility] [address] [place] [address] Nitin Vaca MD Question 04/23/2025 11:00 AM CDT Office Visit [facility] Orthopedic & Sports [facility] [address] [place] [address] Nitin Vaca MD Follow Up (Right tfcc ) 04/23/2025 Travel 04/18/2025 MyChart Message Enc [facility] Orthopedic & Sports [facility] [address] [place] [address] Nitin Vaca MD MRI Results 04/13/2025 1:42 PM CDT - 04/13/2025 11:59 PM CDT Hospital Encounter [facility] [place] [address] Nitin Vaca MD Discharge Disposition: Home or Self Care (Routine Discharge) 04/13/2025 Travel 03/27/2025 10:54 AM CDT - 03/27/2025 11:59 PM CDT Hospital Encounter [facility] [place] [address] [id number] Jacob Middleton CNP Discharge Disposition: Home or Self Care (Routine Discharge) 03/27/2025 Travel 03/26/2025 10:20 AM CDT Office Visit [facility] Orthopedic & Sports Medicine [facility] [address] [place] [address] Nitin Vaca MD Follow Up (Right wrist pain ) 03/26/2025 MyChart Message Enc [facility] Orthopedic & Sports [facility] [address] [place] [address] Nitin Vaca MD MRI 03/26/2025 Travel 03/02/2025 Orders Only [facility] Orthopedic Sports [facility] [address] [place] [address] Merrill Hammond MD 03/01/2025 8:40 AM CDT Office Visit [facility] [address] [place] [address] Merrill Hammond MD Follow Up (Rt shoulder MRI and NCV) 03/01/2025 MyChart Message Enc [facility] Orthopedic [facility] [address] [place] [address] Merrill Hammond MD Referral 03/01/2025 MyChart Message Enc [facility] [place] [address] [id number] [facility] Provider Ref 03/01/2025 MyChart Message Enc [facility] [place] [address] [id number] Elizabeth Ryder MD Referral 03/01/2025 Travel from Last 3 Months Immunizations Immunization Administration Dates Next Due FLUCELVAX (ccIIV3, TRIVALENT, 0.5mL) 08/11/2024 Flucelvax 2 YRS+ (Multi-Dose Vial) 10/02/2019 Fluzone 6 Months+ Quad (0.5 mL Prefilled Syringe) 08/10/2023,07/31/2022 Hib (PedvaxHIB)3 Dose 10/21/2021 Influenza (Generic) 08/07/2023,07/26/2018 Influenza Adult (Generic) 08/11/2024,,10/02/2019,2017 MODERNA COVID-19 BIVALENT (1 2+), MRNA, LNP-S, PF 07/31/2022 MODERNA COVID-19 (12+) MRNA, LNP-S, PF, 100 MCG/ 0.5 ML DOSE 09/06/2021,01/13/2021,12/11/2020 Pneumococcal (Pneumovax 23) 10/21/2021 Shingrix 12/20/2021,07/26/2021 Td (TDVAX) 06/12/2024 Family History Medical History Relation Comments Alcohol Abuse Brother Cancer Brother Throat Arthritis Father Cancer Father Colon Heart Disease Father Pulmonary hypert ension Hypertension Father Stroke Father No Known Problems Maternal Grandfather No Known Problems Maternal Grandmother Arthritis Mother Heart Disease Mother Congestive heart failure Mental Health Mother Dementia Miscarriages / Stillbirths Mother Stroke Mother No Known Problems Paternal Grandfather No Known Problems Paternal Grandmother Osteoporosis Sister Relation Status Comments Brother Father Alive Maternal Grandfather Maternal Grandmother Mother Paternal Grandfather Paternal Grandmother Sister Alive Social History Tobacco Use Types Packs/Day Years Used Date Smoking Tobacco: Never Smokeless Tobacco: Never Tobacco Cessation:Counseling Given: No Comments:NON SMOKER Alcohol Use Standard Drinks/Week Comments Not Currently 3.3 (1 standard drink = 0.6 oz [...] Sex Assigned at Female 11/14/2024 2:54 PM SPECIALIZED DEVELOPER Legal Sex Female 11:06 AM CDT Gender Identity Female 05/11/2025 1:56 PM CDT Sexual Orientation Not on file Last Filed Vital Signs Vital Sign Reading Time Taken Comments Blood Pressure 128/88 05/21/2025 9:55 AM CDT Pulse 109 05/21/2025 9:55 AM CDT Temperature 36.8 C (98.2 F) 05/21/2025 9:55 AM CDT Respiratory Rate 18 05/11/2025 2:00 PM CDT Oxygen Saturation 99% 05/11/2025 2:00 PM CDT Inhaled Oxygen Concentration - - Weight 77.6 kg (171 lb) 05/21/2025 9:55 AM CDT Height 170.2 cm (5' 7) 05/21/2025 9:55 AM CDT Body Mass Index 26.78 05/21/2025 9:55 AM CDT Plan of Treatment Upcoming Encounters Date Type Department Care Team (Latest Contact Info) Description 06/07/2025 5:00 PM CDT Hospital Encounter [facility] [place] [address] [id number] Elizabeth Ryder MD Three [address] [address] 06/07/2025 5:00 PM CDT - 06/07/2025 5:20 PM CDT Surgery [facility] [place] [address] [id number] Elizabeth Ryder MD Three [address] [address] INJECTION TRIGGER POINT-cervivcal/th oracic 06/11/2025 2:40 PM CDT Office Visit [facility] Orthopedic & Sports Medicine - [place] [address] [place] [address] Nitin Vaca MD [address] [place] [address] 07/13/2025 9:00 AM CDT Hospital Encounter [facility] [place] [address] [id number] Elizabeth Ryder MD Three [facility] [address] [place] [address] 07/13/2025 9:00 AM CDT - 07/13/2025 9:20 AM CDT Surgery [facility] [place] [address] [id number] Elizabeth Ryder MD Three [facility] [address] [place] [address] INJECTION EPIDURAL STEROID [id number] 07/13/2025 11:00 AM CDT Office Visit [facility] [address] [facility] [place] [address] Esau Hoff MD [address] [facility] [address] [place] [address] 09/13/2025 7:40 AM SPECIALIZED DEVELOPER Office Visit [facility] Family & Internal Medicine - [address] [phone] Kylee Villanueva MD [address] [place] [address] [address] [place], [place] [id number] Scheduled Procedures Name Priority Associated Diagnoses Date/Ti me INJECTION TRIGGER POINT Myofascial pain 06/07/2025 5:00 PM CDT INJECTION EPIDURAL STEROID CERVICAL Cervical radiculopathy 07/13/2025 9:00 AM CDT Health Maintenance Due Date Last Done Comments Hepatitis B Vaccines (1 of 3 - 19+ 3-dose series) 1989 Cervical Cancer Screening Pap with HPV Testing (Age 30 to 64) Every 5 Years 2000 Pneumococcal Vaccine: 50+ Years (2 of 2 - PCV) 10/21/2022 10/21/2021 DTaP, Tdap and Td Vaccines (1 - Tdap) 06/13/2024 06/12/2024 COVID-19 Vaccine (7 2023- season) 2024 07/17/2023, 07/31/2022, 09/06/2021, Additional history exists Annual Physical 08/30/2025 08/30/2024, 07/25, 07/31/2022, Additional history exists Mammogram Screening 12/06/2025 12/06/2023, 12/04/2022, 07/07/2021, Additional history exists Cervical Cancer Screening Pap Smear (Age 30 to 64) Every 3 Years 08/30/2027 08/30/2024, 08/10/2023, 07/31/2022, Additional history exists Cervical Cancer Screening with HPV 08/30/2027 Colorectal Cancer Screening Colonoscopy (10 Years) 05/09/2031 05/09/2021, 05/09/2021 Zoster Vaccines Completed 12/20/2021, 07/26/2021 Hepatitis C Completed 05/14/2022, 04/25, 05/14/2022 PHQ-2 (Physician [place]) Completed 01/08/2025 Meningococcal B Vaccine Aged Out No l onger eligible based on patient's age to complete this topic Meningococcal Vaccine Aged Out No jose pato eligible based on patient's age to complete this topic RSV Immunizations Under 20 Months Aged Out No longer eligible based on patient's age to complete this topic Goals Goal Patient Goal Type Associated Problems Recent Progress Patient-Stated? Author Autogenerat ed Goal Care Plan Autogenerated Problem No Allyson Vázquez RN Procedures Procedure Name Priority Date/Time Associated Diagnosis Comments MRI ARTHRO WRIST RT Routine 04/13/2025 3 :37 PM CDT Injury of triangular fibrocartilage complex (TFCC) of right wrist, initial encounter IR ARTHROGRAM WRIST RT Routine 04/13/2025 2:12 PM CDT Injury of triangular fibrocartilage complex (TFCC) of right wrist, initial encounter CYTOPATH CERV/VAG THIN LAYER Routine 08/30/2024 8:15 AM SPECIALIZED DEVELOPER Cervical cancer screening MAMMOGRAM GENERIC (SCAN ORDER) 12/06/2023 COLONOSCOPY Routine 05/09/2021 7:23 AM CDT from Last 3 Months or Most Recently Relevant to Health Maintenance Results * MRI ARTHRO WRIST RT (04/13/2025 3:37 PM CDT) Anatomical Region Laterality Modality Wrist Magnetic Resonan ce 04/17/2025 12:4 1 PM CDT Impressions 04/17/2025 12:57 PM CDT IMPRESSION: 1. Central triangular fibrocartilage tear with contrast extending into the distal radioulnar joint. 2. Contrast also fills a ganglion cyst just volar to the radioscaphoid articulation. 3. Additional 10 mm ganglion cyst just volar to the distal radioulnar joint. 4. No acute osseous abnormality. 5. Second extensor compartment tenosynovitis. Ordered By: NITIN VACA Interpreted By: Cale Cervantes, 04/17/2025 12:41 PM Narrative 04/17/2025 12:[address] PM [address]T [address] [address] EXAMINATION: MRI ARTHROGRAM RIGHT WRIST EXAM DATE: 04/13/2025 3:16 PM REASON FOR EXAM: Ulnar-sided wrist pain. Concern for triangular fibrocartilage tear. Wrist popping and clicking. COMPARISON: None TECHNIQUE: Multiplanar multisequence imaging of the wrist after dilute gadolinium solution injection into the joint. No intravenous contrast. FINDINGS: Adequate distention of the joint with contrast. Contrast fills a ganglion cyst just volar to the radioscaphoid articulation, measuring 5 x 13 mm. Additional 10 mm ganglion cyst volar to the distal radioulnar joint. Contrast extends from the radiocarpal articulation into the distal radioulnar joint. No significant contrast extending into the midcarpal joint space. Proximal and distal carpal rows are well aligned. Subcortical cyst formation of the lunate. Ulnar neutral variance. There is a small central tear of the triangular fibrocartilage. Lunatotriquetral and scapholunate ligaments intact. Tendons: Second extensor compartment tenosynovitis. No evidence of extensor or flexor tear. Contrast extends into both the dorsal and volar periarticular spaces. Distal radioulnar joint is intact. No acute fracture or dislocation. Procedure Note Cale Cervantes MD - 04/17/[address] [address] EXAMINATION: MRI ARTHROGRAM RIGHT WRIST EXAM DATE: 04/13/2025 3:16 PM REASON FOR EXAM: Ulnar-sided wrist pain. Concern for triangularfibrocartilage tear. Wrist popping and clicking. COMPARISON: None TECHNIQUE: Multiplanar multisequence imaging of the wrist after dilutegadolinium solution injection into the joint. No intravenous contrast. FINDINGS: Adequate distention of the joint with contrast. Contrast fills a ganglioncyst just volar to the radioscaphoid articulation, measuring 5 x 13 mm. Additional 10 mm ganglion cyst volar to the distal radioulnar joint. Contrast extends from the radiocarpal articulation into the distalradioulnar joint. No significant contrast extending into the midcarpaljoint space. Proximal and distal carpal rows are well aligned. Subcortical cystformation of the lunate. Ulnar neutral variance. There is a small central tear of the triangular fibrocartilage. Lunatotriquetral and scapholunate ligaments intact. Tendons: Second extensor compartment tenosynovitis. No evidence ofextensor or flexor tear. Contrast extends into both the dorsal and volar periarticular spaces. Distal radioulnar joint is intact. No acute fracture or dislocation. IMPRESSION: 1. Central triangular fibrocartilage tear with contrast extending intothe distal radioulnar joint. 2. Contrast also fills a ganglion cyst just volar to the radioscaphoidarticulation. 3. Additional 10 mm ganglion cyst just volar to the distal radioulnarjoint. 4. No acute osseous abnormality. 5. Second extensor compartment tenosynovitis. Ordered By: NITIN VACA Interpreted By: Cale Cervantes, 04/17/2025 12:41 PM us Nitin Vaca MD MRI Final Result * IR ARTHROGRAM WRIST RT (04/13/2025 2:12 PM CDT) Anatomical Region Laterality Modality Wrist Interventional R adiology, Radiographic Imaging 04/13/2025 2:17 PM CDT Impressions 04/13/2025 2:20 PM CDT =====IMPRESSION:===== 1. Procedure note for right arthrogram with fluoroscopy. 2. MR arthrogram of the right wrist to follow. Ordered By: NITIN VACA Interpreted By: Ace Hannah MD, 04/13/2025 2:17 PM Narrative 04/13/2025 2:[address] [address] Examination: IR arthrogram right wrist Exam date/time: 04/13/2025 2:00 PM Indication: 54 female. Right wrist pain . Triangular fibrocartilage complex injury evaluation Comparison: None Procedure technique: Patient informed verbal and written consent was obtained from the patient, patient's medical power of commercial litigation attorney. The procedure was discussed including the rationale, alternatives, benefits and risks Timeout was performed. The patient was positioned prone on the fluoroscopy table with the arm, wrist pronated and outstretched above the head. The proximal pole of the scaphoid was targeted from a dorsal approach. Sterile barrier technique including hand hygiene and skin preparation was employed for the procedure. 1% lidocaine was administered for local anesthesia. A 25- gauge needle was then advanced under fluoroscopy and 10 the tip of the needle contacted the dorsal aspect of scaphoid proximal pole. 3.5 mL of a 20 mL mixture containing 10 mL saline, 5 mL lidocaine, 5 mL iodinated contrast and 0.2 mL Dotarem contrast was then administered into the joint. . Contrast was seen diffuse through the radiocarpal joint. Needle was removed. The patient tolerated the procedure well. Band-Aid was placed. Patient was transported to the MRI suite for arthrogram imaging.. Radiation dose Air Kerma: 0.9 mGy; total 4 fluoroscopy images recorded Findings: Unremarkable appearance of the right wrist on this single fluoroscopic view. Normal scapholunate interval.Contrast seen diffusing through the joint postinjection. Procedure Note Ace Hannah MD - 04/13/[address] [address] Examination: IR arthrogram right wrist Exam date/time: 04/13/2025 2:00 PM Indication: 54 female. Right wrist pain . Triangular fibrocartilagecomplex injury evaluation Comparison: None Procedure technique: Patient informed verbal and written consent wasobtained from the patient, patient's medical power of commercial litigation attorney. Theprocedure was discussed including the rationale, alternatives, benefitsand risks Timeout was performed. The patient was positioned prone on the fluoroscopy table with the arm,wrist pronated and outstretched above the head. The proximal pole of thescaphoid was targeted from a dorsal approach. Sterile barrier technique including hand hygiene and skin preparation wasemployed for the procedure. 1% lidocaine was administered for localanesthesia. A 25-gauge needle was then advanced under fluoroscopy and 10the tip of the needle contacted the dorsal aspect of scaphoid proximalpole. 3.5 mL of a 20 mL mixture containing 10 mL saline, 5 mL lidocaine, 5mL iodinated contrast and 0.2 mL Dotarem contrast was then administeredinto the joint. . Contrast was seen diffuse through the radiocarpal joint.Needle was removed. The patient tolerated the procedure well. Band-Aid wasplaced. Patient was transported to the MRI suite for arthrogramimaging.. Radiation dose Air Kerma: 0.9 mGy; total 4 fluoroscopy images recorded Findings: Unremarkable appearance of the right wrist on this singlefluoroscopic view. Normal scapholunate interval.Contrast seen diffusingthrough the joint postinjection. =====IMPRESSION:===== 1. Procedure note for right arthrogram with fluoroscopy. 2. MR arthrogram of the right wrist to follow. Ordered By: NITIN VACA Interpreted By: Ace Hannah MD, 04/13/2025 2:17 PM Nitin Vaca MD INTERVENTIONAL RADIOLOGY Final Result * Cytopath Cerv/Vag Thin Layer (08/30/2024 8:15 AM SPECIALIZED DEVELOPER) CLINICAL INFORMATION: Postmenopausal [place], [place] Clinical Information: 06/23/2020 [place], [place] Date of Last Pap NONE GIVEN SocialF5 [place] Previous Biopsy? NONE GIVEN SocialF5 [place] SOURCE (QST) Cervix, Endocervix [place], [place] STATEMENT OF ADEQUACY: [place], [place] Comment: Satisfactory for evaluation. Endocervical/transformation zone component absent. PAP INTERPRETATION/RESU LTS Cytology Results: Negative for intraepithelial lesion or malignancy. [place], [place] COMMENT: This Pap test has been evaluated with computer assisted technology. [place], [place] EDUCATION AND OUTREACH COORDINATOR [facility] [place], [place] Comment: YQ, CT(ASCP) CT screening location: [facility] [address] [place] [address] COMMENT: [place], [place] Comment: EXPLANATORY NOTE: The Pap is a screening test for cervical cancer. It is not a diagnostic test and is subject to false negative and false positive results. It is most reliable when a satisfactory sample, regularly obtained, is submitted with relevant clinical findings and history, and when the Pap result is evaluated along with historic and current clinical information. 08/30/2024 8:15 AM SPECIALIZED DEVELOPER 08/31/2024 4:37 AM SPECIALIZED DEVELOPER Narrative Resulting Agency Comment Performing Organization Information: Site ID: [id number] Name: [id number] Address: [address] [place] [address] Director: Akbar Gore us Viv METZ PATHOLOGY/CYTOLOGY ORDERABLE S Final Result [facility] [employer], [place] [address] [place] [address], [place] * MAMMOGRAM GENERIC (SCAN ORDER) (12/06/2023) Anatomical Region Laterality Modality Other 12/06/2023 us [facility] Scanned SCANNING Final Resu lt from Last 3 Months or Most Recently Relevant to Health Maintenance Additional Health Concerns Active Problems Noted Date Diagnosed Date Autogenerated Problem 05/22/2025 Insurance [facility] Care Teams Assistant Property Manager Relationship Specialty Start [place] [address] [facility] [place] [id number] PCP - General FAMILY PRACTICE 06/07/23 Alberto Avendano MD NEUROLOGICAL SURGERY 11/24/21
--- OUTSIDE RECORDS SUMMARY | 2025-05-30 00:42 | XMS_ITS | Encounter Summary ---
Author Organization [facility] Address [address] [place] [address] Care Team Providers Care Testboard Operator Name Role Phone Alberto Avendano MD Unavailable [phone] Kylee Villanueva MD Primary Care Provider [phone] Encounter Details Date Type Department Care Team (Late st Contact Info) Description 09/29/2024 GoSurf Accessories Message Enc [facility] Interventional [place] [address] [id number] Elizabeth Ryder MD Three [facility] [address] [place] [address] Question Social History Tobacco Use Types Packs/Day [...] Sex Assigned at Female 11/14/2024 2:54 PM INGREDIENT SCALER Legal Sex Female 11:06 AM CDT Gender Identity Female 05/11/2025 1:56 PM CDT Sexual Orientation Not on file documented as of this encounter Plan of Treatment Upcoming Encounters Date Type Department Care Team (Latest Contact Info) Description 06/07/2025 5:00 PM CDT Hospital Encounter [facility] [place] [address] [id number] Elizabeth Ryder MD [address] [address] 06/07/2025 5:00 PM CDT - 06/07/2025 5:20 PM CDT Surgery [facility] [place] [address] [id number] Elizabeth Ryder MD [address] [address] INJECTION TRIGGER POINT-cervivcal/th oracic 06/11/2025 2:40 PM CDT Office Visit [facility] Medical Group Orthopedic & Sports Medicine - [place] [address] [place] [address] Reynaldo Bunch MD [address] [place] [address] 07/13/2025 9:00 AM CDT Hospital Encounter [facility] [place] [address] [id number] Elizabeth Ryder MD Three [address] [address] 07/13/2025 9:00 AM CDT - 07/13/2025 9:20 AM CDT Surgery [facility] Interventional [place] [address] [id number] Elizabeth Ryder MD Three [facility] [address] [place] [address] INJECTION EPIDURAL STEROID [id number] 07/13/2025 11:00 AM CDT Office Visit [facility] Multispecialty Care - [facility] 3 [facility], [address] [place] [address] Esau Hoff MD 3 [facility] [address] [place] [address] 09/13/2025 7:40 AM INGREDIENT SCALER Office Visit [facility] Medical [facility] Family & Internal Medicine [address] [address] [place] [address] [place] [address] Scheduled Procedures Name Priority Associated Diagnoses Date/Ti me INJECTION TRIGGER POINT Myofascial pain 06/07/2025 5:00 PM CDT INJECTION EPIDURAL STEROID CERVICAL Cervical radiculopathy 07/13/2025 9:00 AM CDT documented as of this encounter Visit Diagnoses Not on filedocumented in this encounter Additional Health Concerns Infection Onset Date Last Indicated Resolved Time COVID-19 Rule Out 11/03/2024 11/03/2024 11/03/2024 10:48 AM INGREDIENT SCALER documented as of this encounter Care Teams Testboard Operator Relationship Specialty [place] [address] [address]. [address] [place] [address] PCP - General FAMILY PRACTICE 06/07/23 Alberto Avendano MD NEUROLOGICAL SURGERY 11/24/21 documented as of this encounter
--- OUTSIDE RECORDS SUMMARY | 2025-05-30 00:42 | XMS_ITS | Encounter Summary ---
Author Organization [facility] Address [address] [place] [address] Care Team Providers Care Volunteer Assistant Name Role Phone Alberto Avendano MD Unavailable [phone] Kylee Villanueva MD Primary Care Provider [phone] Encounter Details Date Type Department Care Team (Latest Contact Info) Description 05/25/2025 Scan [facility] SRVCS Scanned, Doc Med Group Social History Tobacco Use Types Packs/Day Years [...] Sex Assigned at Female 11/14/2024 2:54 PM ARTIFICIAL BREAST FABRICATOR Legal Sex Female 11:06 AM CDT Gender Identity Female 05/11/2025 1:56 PM CDT Sexual Orientation Not on file documented as of this encounter Plan of Treatment Upcoming Encounters Date Type Department Care Team (Latest Contact Info) Description 06/07/2025 5:00 PM CDT Hospital Encounter [facility] Interventional [place] [address] [id number] Elizabeth Ryder MD Three [address] [address] 06/07/2025 5:00 PM CDT - 06/07/2025 5:20 PM CDT Surgery [facility] Interventional [place] [address] [id number] Elizabeth Ryder MD Three [address] [address] INJECTION TRIGGER POINT-cervivcal/th oracic 06/11/2025 2:40 PM CDT Office Visit [facility] Medical Group Orthopedic & Sports Medicine - [place] [address] [place] [address] Reynaldo Bunch MD [address] [place] [address] 07/13/2025 9:00 AM CDT Hospital Encounter [facility] Interventional [place] [address] [id number] Elizabeth Ryder MD Three [address] [address] 07/13/2025 9:00 AM CDT - 07/13/2025 9:20 AM CDT Surgery [facility] Interventional [place] [address] [id number] Elizabeth Ryder MD Three [facility] [address] [place] [address] INJECTION EPIDURAL STEROID [id number] 07/13/2025 11:00 AM CDT Office Visit [facility] Multispecialty Care - [facility] 3 [facility] [address] [place] [address] Esau Hoff MD 3 [facility] [address] [place] [address] 09/13/2025 7:40 AM ARTIFICIAL BREAST FABRICATOR Office Visit [facility] Family & Internal Medicine - [address] [address] [place] [address] [facility] [employer]. [address] [place] [address] Scheduled Procedures Name Priority Associated Diagnoses Date/Ti me INJECTION TRIGGER POINT Myofascial pain 06/07/2025 5:00 PM CDT INJECTION EPIDURAL STEROID CERVICAL Cervical radiculopathy 07/13/2025 9:00 AM CDT documented as of this encounter Goals Goal Patient Goal Type Associated Problems Recent Progress Patient-Stated? Author Autogenerat ed Goal Care Plan Autogenerated Problem No Allyson Vázquez RN documented as of this encounter Visit Diagnoses Not on filedocumented in this encounter Additional Health Concerns Active Problems Noted Date Diagnosed Date Autogenerated Problem 05/22/2025 Assessment Noted Time PHQ-9 Depression Total Score: 2 12/11/19 25 1:50 PM ARTIFICIAL BREAST FABRICATOR documented as of this encounter Care Teams Volunteer Assistant Relationship Specialty Start [place] [address] [facility]. [address] [place] [address] [id number] PCP - General FAMILY PRACTICE 06/07/23 Alberto Avendano MD NEUROLOGICAL SURGERY 11/24/21 documented as of this encounter
--- OUTSIDE RECORDS SUMMARY | 2025-05-30 00:42 | XMS_ITS | Encounter Summary ---
Author Organization [facility] Address [address] [place] [address] Care Team Providers Care Technology Analyst Name Role Phone Alberto Avendano MD Unavailable [phone] Kylee Villanueva MD Primary Care Provider [phone] Encounter Details Date Type Department Care Team (Late st Contact Info) Description 09/11/2024 Base CRM Message Enc [facility] Interventional Pain Management Center [place], [place] [id number] Elizabeth Ryder MD Three [facility] [address] [place] [address] Hives Social History Tobacco Use Types Packs/Day Years [...] Sex Assigned at Female 11/14/2024 2:54 PM OSD CLERK Legal Sex Female 11:06 AM CDT Gender Identity Female 05/11/2025 1:56 PM CDT Sexual Orientation Not on file documented as of this encounter Plan of Treatment Upcoming Encounters Date Type Department Care Team (Latest Contact Info) Description 06/07/2025 5:00 PM CDT Hospital Encounter [facility] [place] [address] [id number] Elizabeth Ryder MD [address] [address] 06/07/2025 5:00 PM CDT - 06/07/2025 5:20 PM CDT Surgery [facility] [place] [address] [id number] Elizabeth Ryder MD [address] [address] INJECTION TRIGGER POINT-cervivcal/th oracic 06/11/2025 2:40 PM CDT Office Visit [facility] Medical Group Orthopedic & Sports Medicine - [place] [address] [place] [address] Reynaldo Bunch MD [address] [place] [address] 07/13/2025 9:00 AM CDT Hospital Encounter [facility] Interventional [place] [address] [id number] Elizabeth Ryder MD Three [address] [address] 07/13/2025 9:00 AM CDT - 07/13/2025 9:20 AM CDT Surgery [facility] Interventional Pain [place] [address] [id number] Elizabeth Ryder MD Three [facility] [address] [place] [address] INJECTION EPIDURAL STEROID [id number] 07/13/2025 11:00 AM CDT Office Visit [facility] Mult[facility]ialty Care - [facility] 3 [facility] [address] [place] [address] Esau Hoff MD 3 [facility] [address] [place] [address] 09/13/2025 7:40 AM OSD CLERK Office Visit [facility] Medical [facility] Family & Internal Medicine [address] [address] [place] [address] [facility]. [address] [place] [address] Scheduled Procedures Name Priority Associated Diagnoses Date/Ti me INJECTION TRIGGER POINT Myofascial pain 06/07/2025 5:00 PM CDT INJECTION EPIDURAL STEROID CERVICAL Cervical radiculopathy 07/13/2025 9:00 AM CDT documented as of this encounter Visit Diagnoses Not on filedocumented in this encounter Additional Health Concerns Infection Onset Date Last Indicated Resolved Time COVID-19 Rule Out 11/03/2024 11/03/2024 11/03/2024 10:48 AM OSD CLERK documented as of this encounter Care Teams Technology Analyst Relationship Specialty Start [place] [address] [address] [place] [address] PCP - General FAMILY PRACTICE 06/07/23 Alberto Avendano MD NEUROLOGICAL SURGERY 11/24/21 documented as of this encounter
--- OUTSIDE RECORDS SUMMARY | 2025-05-30 00:42 | XMS_ITS | Encounter Summary ---
Author Organization [facility] Address [address] [place] [address] Care Team Providers Care Client Engagement Specialist Name Role Phone Alberto Avendano MD Unavailable [phone] Kylee Villanueva MD Primary Care Provider [phone] Encounter Details Date Type Department Care Team (Late st Contact Info) Description 08/15/2024 Tag'By Message Enc [facility] Medical Group Family & Internal Medicine [address] [address] Kylee Villanueva MD [address] [place] [address]. [address] [place] [address] Echocardiogram Social History Tobacco Use Types Packs/Day Years [...] Sex Assigned at Female 11/14/2024 2:54 PM HOTEL ASSOCIATE Legal Sex Female 11:06 AM CDT Gender Identity Female 05/11/2025 1:56 PM CDT Sexual Orientation Not on file documented as of this encounter Functional Status * Calculated C-SSRS Risk Score (Lifetime/Recent) Answer Date of Assessment Author Status No Risk Indicated 08/18/2024 11:37 AM CDT Mackenzie Monae RN Active * [place] Suicide Severity Rating Scale (Screener/Recent Self-Report) Question Answer Date of Assessment Author Status 1. Wish to be (Past 1 Month) No 08/18/2024 11:37 AM CDT Ann Monae RN Active 2. Non-Specific Active Suicidal Thoughts (Past 1 Month) No 08/18/2024 11:37 AM CDT Ann Monae RN Active 6. Suicidal Behavior (Lifetime) No 08/18/2024 11:37 AM CDT Ann Monae RN Active documented as of this encounter Plan of Treatment Upcoming Encounters Date Type Department Care Team (Latest Contact Info) Description 06/07/2025 5:00 PM CDT Hospital Encounter [facility] Interventional [place] [address] [id number] Elizabeth Ryder MD Three [address] [address] 06/07/2025 5:00 PM CDT - 06/07/2025 5:[address] [facility] Interventional [place] [address] [id number] Elizabeth Ryder MD Three [facility] [address] [place] [address] INJECTION TRIGGER POINT-cervivcal/th oracic 06/11/2025 2:40 PM CDT Office Visit [facility] Orthopedic & Sports Medicine - [place] [address] [place] [address] Reynaldo Bunch MD [address] [place] [address] 07/13/2025 9:00 AM CDT Hospital Encounter [facility] Interventional Pain [place] [address] [id number] Elizabeth Ryder MD Three [facility] [address] [place] [address] 07/13/2025 9:00 AM CDT - 07/13/2025 9:[address] [facility] Interventional Pain Management [place] [address] [id number] Elizabeth Ryder MD Three [facility] [address] [place] [address] INJECTION EPIDURAL STEROID [id number] 07/13/2025 11:00 AM CDT Office Visit [facility] Multispecialty Care - [facility] 3 [facility] [address] [place] [address] Esau Hoff MD 3 [facility] [address] [place] [address] 09/13/2025 7:40 AM HOTEL ASSOCIATE Office Visit [facility] Family & Internal Medicine - [address] [address] Kylee Villanueva MD [address] [place] [address] [place] [address] Scheduled Procedures Name Priority Associated Diagnoses Date/Ti me INJECTION TRIGGER POINT Myofascial pain 06/07/2025 5:00 PM CDT INJECTION EPIDURAL STEROID CERVICAL Cervical radiculopathy 07/13/2025 9:00 AM CDT documented as of this encounter Visit Diagnoses Not on filedocumented in this encounter Additional Health Concerns Infection Onset Date Last Indicated Resolved Time COVID-19 Rule Out 08/30/2024 08/30/2024 08/30/2024 8:14 AM HOTEL ASSOCIATE COVID-19 Rule Out 11/03/2024 11/03/2024 11/03/2024 10:48 AM HOTEL ASSOCIATE documented as of this encounter Care Teams Client Engagement Specialist Relationship Specialty [place] [address] [address] [place] [address] PCP - General FAMILY PRACTICE 06/07/23 Alberto Avendano MD NEUROLOGICAL SURGERY 11/24/21 documented as of this encounter
--- OUTSIDE RECORDS SUMMARY | 2025-05-30 00:42 | XMS_ITS | Encounter Summary ---
Author Organization [facility] Address [address] [place] [address] Care Team Providers Care Piper Installer Name Role Phone Alberto Avendano MD Unavailable [phone] Kylee Villanueva MD Primary Care Provider Encounter Details Date Type Department Care Team (Late st Contact Info) Description 02/19/2025 TenTwenty7t Message Enc [facility] Medical Group Orthopedic & Sports Medicine - [place] [address] [place] [address] Merrill Hammond MD [address] [place] [address] Test results Social History Tobacco Use Types Packs/Day Years [...] Sex Assigned at Female 11/14/2024 2:54 PM BEATER TENDER Legal Sex Female 11:06 AM CDT Gender Identity Female 05/11/2025 1:56 PM CDT Sexual Orientation Not on file documented as of this encounter Plan of Treatment Upcoming Encounters Date Type Department Care Team (Latest Contact Info) Description 06/07/2025 5:00 PM CDT Hospital Encounter [facility] Interventional [place] [address] [id number] Elizabeth Ryder MD Three [address] [address] 06/07/2025 5:00 PM CDT - 06/07/2025 5:20 PM CDT Surgery [facility] Interventional [place] [address] [id number] Elizabeth Ryder MD Three [address] [address] INJECTION TRIGGER POINT-cervivcal/th oracic 06/11/2025 2:40 PM CDT Office Visit [facility] Medical Group Orthopedic & Sports Medicine - [place] [address] [place] [address] Reynaldo Bunch MD [address] [place] [address] 07/13/2025 9:00 AM CDT Hospital Encounter [facility] Interventional [place] [address] [id number] Elizabeth Ryder MD Three [address] [address] 07/13/2025 9:00 AM CDT - 07/13/2025 9:20 AM CDT Surgery [facility] Interventional [place] [address] [id number] Elizabeth Ryder MD Three [facility] [address] [place] [address] INJECTION EPIDURAL STEROID [id number] 07/13/2025 11:00 AM CDT Office Visit [facility] Multispecialty Care - [facility] 3 [facility] [address] [place] [address] Esau Hoff MD 3 [facility] [address] [place] [address] 09/13/2025 7:40 AM BEATER TENDER Office Visit [facility] Medical [facility] Family & Internal Medicine [address] [address] [place] [address] [facility] [address] [place] [address] Scheduled Procedures Name Priority Associated Diagnoses Date/Ti me INJECTION TRIGGER POINT Myofascial pain 06/07/2025 5:00 PM CDT INJECTION EPIDURAL STEROID CERVICAL Cervical radiculopathy 07/13/2025 9:00 AM CDT documented as of this encounter Visit Diagnoses Not on filedocumented in this encounter Additional Health Concerns Assessment Noted Time PHQ-9 Depression Total Score: 2 12/11/19 25 1:50 PM BEATER TENDER documented as of this encounter Care Teams Piper Installer Relationship Specialty Start [place] [address] [facility]. [address] [place] [address] PCP - General FAMILY PRACTICE 06/07/23 Alberto Avendano MD NEUROLOGICAL SURGERY 11/24/21 documented as of this encounter
--- OUTSIDE RECORDS SUMMARY | 2025-05-30 00:42 | XMS_ITS | Encounter Summary ---
Author Organization [facility] Address [address] [place] [address] Care Team Providers Care Credit Risk Review Officer Name Role Phone Alberto Avendano MD Unavailable [phone] Kylee Villanueva MD Primary Care Provider [phone] Encounter Details Date Type Department Care Team (Late st Contact Info) Description 05/22/2025 Moveat Message Enc [facility] Medical Group Orthopedic & Sports Medicine - [place] [address] [place] [address] [phone] Reynaldo Bunch MD [address] [place], [place] 480[address] 600- Cast Social History Tobacco Use Types Packs/Day Years [...] Sex Assigned at Female 11/14/2024 2:54 PM COLLECTION TELLER Legal Sex Female 11:06 AM CDT Gender Identity Female 05/11/2025 1:56 PM CDT Sexual Orientation Not on file documented as of this encounter Plan of Treatment Upcoming Encounters Date Type Department Care Team (Latest Contact Info) Description 06/07/2025 5:00 PM CDT Hospital Encounter [facility] Interventional [place] [address] [id number] Elizabeth Ryder MD Three [address] [address] 06/07/2025 5:00 PM CDT - 06/07/2025 5:20 PM CDT Surgery [facility] Interventional [place] [address] [id number] Elizabeth Ryder MD Three [address] [address] INJECTION TRIGGER POINT-cervivcal/th oracic 06/11/2025 2:40 PM CDT Office Visit [facility] Medical Group Orthopedic & Sports Medicine - [place] [address] [place] [address] Reynaldo Bunch MD [address] [place] [address] 07/13/2025 9:00 AM CDT Hospital Encounter [facility] Interventional [place] [address] [id number] Elizabeth Ryder MD Three [address] [address] 07/13/2025 9:00 AM CDT - 07/13/2025 9:20 AM CDT Surgery [facility] Interventional Pain [place] [address] [id number] Elizabeth Ryder MD Three [facility] [address] [place] [address] INJECTION EPIDURAL STEROID [id number] 07/13/2025 11:00 AM CDT Office Visit [facility] Multispecialty Care - [facility] 3 [facility] [address] [place] [address] Esau Hoff MD 3 [facility] [address] [place] [address] 09/13/2025 7:40 AM COLLECTION TELLER Office Visit [facility] Medical [facility] Family & Internal Medicine - [address] [address] Kylee Villanueva MD [address] [place] [address] [place] [id number] Scheduled Procedures Name Priority Associated Diagnoses Date/Ti [...] Total Score: 2 12/11/19 25 1:50 PM COLLECTION TELLER documented as of this encounter Care Teams Credit Risk Review Officer Relationship Specialty Start [place] [address] [facility]. [address] [place] [address] PCP - General FAMILY PRACTICE 06/07/23 Alberto Avendano MD NEUROLOGICAL SURGERY 11/24/21 documented as of this encounter
--- OUTSIDE RECORDS SUMMARY | 2025-05-30 00:42 | XMS_ITS | Encounter Summary ---
Author Organization [facility] Address [address] [place] [address] Care Team Providers Care Latent Fingerprint Examiner Name Role Phone Alberto Avendano MD Unavailable [phone] Kylee Villanueva MD Primary Care Provider [phone] Encounter Details Date Type Department Care Team (Late st Contact Info) Description 04/30/2025 Becker Colleget Message Enc [facility] Medical Group Orthopedic & Sports Medicine - [place] [address] [place] [address] Reynaldo Bunch MD [address] [place] [address] Question Social History Tobacco Use Types Packs/Day [...] Sex Assigned at Female 11/14/2024 2:54 PM TILE TRIMMER Legal Sex Female 11:06 AM CDT Gender Identity Female 05/11/2025 1:56 PM CDT Sexual Orientation Not on file documented as of this encounter Plan of Treatment Upcoming Encounters Date Type Department Care Team (Latest Contact Info) Description 06/07/2025 5:00 PM CDT Hospital Encounter [facility] Interventional [place] [address] [id number] Elizabeth Ryder MD Three [address] [address] 06/07/2025 5:00 PM CDT - 06/07/2025 5:20 PM CDT Surgery [facility] Interventional [place] [address] [id number] Elizabeth Ryder MD Three [address] [address] INJECTION TRIGGER POINT-cervivcal/th oracic 06/11/2025 2:40 PM CDT Office Visit [facility] Medical Group Orthopedic & Sports Medicine - [place] [address] [place] [address] Reynaldo Bunch MD [address] [place] [address] 07/13/2025 9:00 AM CDT Hospital Encounter [facility] Interventional [place] [address] [id number] Elizabeth Ryder MD Three [address] [address] 07/13/2025 9:00 AM CDT - 07/13/2025 9:20 AM CDT Surgery [facility] Interventional [place] [address] [id number] Elizabeth Ryder MD Three [facility] [address] [place] [address] INJECTION EPIDURAL STEROID [id number] 07/13/2025 11:00 AM CDT Office Visit [facility] Multispecialty Care - [facility] 3 [facility] [address] [place] [address] Esau Hoff MD 3 [facility] [address] [place] [address] 09/13/2025 7:40 AM TILE TRIMMER Office Visit [facility] Medical [facility] Family & Internal Medicine - [address] [address] Kylee Villanueva MD [address] [place] [address] [place] [address] [id number] Scheduled Procedures Name Priority Associated Diagnoses Date/Ti [...] Total Score: 2 12/11/19 25 1:50 PM TILE TRIMMER documented as of this encounter Care Teams Latent Fingerprint Examiner Relationship Specialty Start [place] [address] [facility] [address] [place] [address] PCP - General FAMILY PRACTICE 06/07/23 Alberto Avendano MD NEUROLOGICAL SURGERY 11/24/21 documented as of this encounter
--- OUTSIDE RECORDS SUMMARY | 2025-05-30 00:42 | XMS_ITS | Encounter Summary ---
Author Organization [facility] Address [address] [place] [address] Care Team Providers Care Blow Torch Burner Name Role Phone Alberto Avendano MD Unavailable [phone] Kylee Villanueva MD Primary Care Provider [phone] Encounter Details Date Type Department Care Team (Late st Contact Info) Description 05/04/2025 Splothert Message Enc [facility] Interventional Pain Management Center [place], [place] [id number] Elizabeth Ryder MD Three [facility] [address] [place] [address] Steroid Shots Social History Tobacco Use Types Packs/Day Years [...] Sex Assigned at Female 11/14/2024 2:54 PM EDUCATION CONSULTANT Legal Sex Female 11:06 AM CDT Gender Identity Female 05/11/2025 1:56 PM CDT Sexual Orientation Not on file documented as of this encounter Plan of Treatment Upcoming Encounters Date Type Department Care Team (Latest Contact Info) Description 06/07/2025 5:00 PM CDT Hospital Encounter [facility] Interventional [place] [address] [id number] Elizabeth Ryder MD [address] [address] 06/07/2025 5:00 PM CDT - 06/07/2025 5:20 PM CDT Surgery [facility] Interventional [place] [address] [id number] Elizabeth Ryder MD [address] [address] INJECTION TRIGGER POINT-cervivcal/th oracic 06/11/2025 2:40 PM CDT Office Visit [facility] Orthopedic & Sports Medicine - [place] [address] [place] [address] Reynaldo Bunch MD [address] [place] [address] 07/13/2025 9:00 AM CDT Hospital Encounter [facility] Interventional [place] [address] [id number] Elizabeth Ryder MD [address] [address] 07/13/2025 9:00 AM CDT - 07/13/2025 9:20 AM CDT Surgery [facility] Interventional [place] [address] [id number] Elizabeth Ryder MD Three [facility] [address] [place] [address] INJECTION EPIDURAL STEROID [id number] 07/13/2025 11:00 AM CDT Office Visit [facility] Multispecialty Care - [facility] 3 [facility] [address] [place] [address] Esau Hoff MD 3 [facility] [address] [place] [address] 09/13/2025 7:40 AM EDUCATION CONSULTANT Office Visit [facility] Medical Group Family & Internal Medicine - [address] [address] Kylee Villanueva MD [address] [place] [address] [place] [address] [id number] Scheduled Procedures Name Priority Associated Diagnoses Date/Ti [...] Total Score: 2 12/11/19 25 1:50 PM EDUCATION CONSULTANT documented as of this encounter Care Teams Blow Torch Burner Relationship Specialty [place] [address] [address] [place] [address] PCP - General FAMILY PRACTICE 06/07/23 Alberto Avendano MD NEUROLOGICAL SURGERY 11/24/21 documented as of this encounter
--- OUTSIDE RECORDS SUMMARY | 2025-05-30 00:42 | XMS_ITS | Encounter Summary ---
Author Organization [facility] Address [facility] [place] [address] Care Team Providers Care Dry Chain Worker Name Role Phone Viv Hamm Primary Care Provider [phone] Alberto Avendano MD Unavailable [phone] Kylee Villanueva MD Primary Care Provider [phone] Encounter Details Date Type Department Care Team (Late st Contact Info) Description 07/31/2022 NullPointerhart Message Enc [facility] Medical Group Family & Internal Medicine [facility] [address] [place] [address] Viv Hamm [place] [id number] [place] [address] [place]-3 index test Social History Tobacco Use Types Packs/Day Years [...] Sex Assigned at Female 11/14/2024 2:54 PM INTERNAL MEDICINE VETERINARY TECHNICIAN Legal Sex Female 11:06 AM CDT Gender Identity Female 05/11/2025 1:56 PM CDT Sexual Orientation Not on file COVID-19 Exposure Response Date Recorded In the last 10 days, have yo u been in contact with someone who was confirmed or suspected to have Coronavirus/COVID-19? No / Unsure 08/03/2022 9:58 AM CDT documented as of this encounter Plan of Treatment Upcoming Encounters Date Type Department Care Team (Latest Contact Info) Description 06/07/2025 5:00 PM CDT Hospital Encounter [facility] Interventional [place] [address] [id number] Elizabeth Ryder MD Three [facility] [address] [place] [address] 06/07/2025 5:00 PM CDT - 06/07/2025 5:20 PM CDT Surgery [facility] [place]ventional [place] [address] [id number] Elizabeth Ryder MD Three [facility] [address] [place] [address] INJECTION TRIGGER POINT-cervivcal/th oracic 06/11/2025 2:40 PM CDT Office Visit [facility] Medical Group Orthopedic & Sports Medicine - [place] [address] [place] [address] Reynaldo Bunch MD [address] [place] [address] 07/13/2025 9:00 AM CDT Hospital Encounter [facility] Interventional [place] [address] [id number] Elizabeth Ryder MD Three [facility] [address] [place] [address] 07/13/2025 9:00 AM CDT - 07/13/2025 9:20 AM CDT Surgery [facility] Interventional Pain [place] [address] [id number] Elizabeth Ryder MD Three [facility] [address] [place] [address] INJECTION EPIDURAL STEROID [id number] 07/13/2025 11:00 AM CDT Office Visit [facility] Medical [facility] Multispecialty Care - [facility] 3 [facility], [address] [place] [address] Esau Hoff MD 3 [facility] [address] [place] [address] 09/13/2025 7:40 AM INTERNAL MEDICINE VETERINARY TECHNICIAN Office Visit [facility] Medical Group Family & Internal Medicine - [address] [address] Kylee Villanueva MD [address] [place] [address] [place] [address] [id number] Scheduled Procedures Name Priority Associated Diagnoses Date/Ti me INJECTION TRIGGER POINT Myofascial pain 06/07/2025 5:00 PM CDT INJECTION EPIDURAL STEROID CERVICAL Cervical radiculopathy 07/13/2025 9:00 AM CDT documented as of this encounter Visit Diagnoses Not on filedocumented in this encounter Additional Health Concerns Infection Onset Date Last Indicated Resolved Time COVID-19 Rule Out 12/13/2023 12/13/2023 12/13/2023 8:54 AM INTERNAL MEDICINE VETERINARY TECHNICIAN COVID-19 Rule Out 08/30/2024 08/30/2024 08/30/2024 8:14 AM INTERNAL MEDICINE VETERINARY TECHNICIAN COVID-19 Rule Out 11/03/2024 11/03/2024 11/03/2024 10:48 AM INTERNAL MEDICINE VETERINARY TECHNICIAN documented as of this encounter Care Teams Dry Chain Worker Relationship Specialty [place] [address] [place] [address] PCP - General PHYSICIAN FORESTRY WORKER 02/03/21 06/06/23 [place] [address] [address] [place] [address] PCP - General FAMILY PRACTICE 06/07/23 [place] [address] [place] [address] NEUROLOGICAL SURGERY 11/24/21 documented as of this encounter
--- OUTSIDE RECORDS SUMMARY | 2025-05-30 00:42 | XMS_ITS | Encounter Summary ---
Author Organization [facility] Address [address] [place] [address] Care Team Providers Care Print Support Specialist Name Role Phone Alberto Avendano MD Unavailable Kylee Villanueva MD Primary Care Provider [phone] Reason for Referral * Surgical (Routine) - New Request Specialty Diagnoses / Procedures Referred By Contac t Referred To Contact Diagnoses Cervical stenosis of spinal canal Procedures Case request operating room: INJECTION EPIDURAL STEROID [id number] Jacob Middleton CNP [address] [address] Phone: tel: [phone] fax: Referral ID Status Reason Start Date Expiration Date V isits Requested Visits Authorized [id number] New Request 07/19/2024 07/19/2025 1 1 Encounter Details Date Type Department Care Team (Late st Contact Info) Description 07/19/[address] [facility] Interventional [place] [address] [id number] Jacob Middleton CNP [address] [phone] [phone] (Work) Social History Tobacco Use Types Packs/Day [...] Sex Assigned at Female 11/14/2024 2:54 PM ASSISTANT AUTO CENTER MANAGER Legal Sex Female 11:06 AM CDT Gender Identity Female 05/11/2025 1:56 PM CDT Sexual Orientation Not on file documented as of this encounter Plan of Treatment Upcoming Encounters Date Type Department Care Team (Latest Contact Info) Description 06/07/2025 5:00 PM CDT Hospital Encounter [facility] Interventional [place] [address] [id number] Elizabeth Ryder MD [address] [address] 06/07/2025 5:00 PM CDT - 06/07/2025 5:[address] [facility] Interventional [place] [address] [id number] Elizabeth Ryder MD Three [address] [address] INJECTION TRIGGER POINT-cervivcal/th oracic 06/11/2025 2:40 PM CDT Office Visit [facility] Orthopedic & Sports Medicine - [place] [address] [place] [address] Reynaldo Bunch MD [address] [place] [address] 07/13/2025 9:00 AM CDT Hospital Encounter [facility] Interventional [place] [address] [id number] Elizabeth Ryder MD Three [facility] [address] [place] [address] 07/13/2025 9:00 AM CDT - 07/13/2025 9:[address] [facility] Interventional Pain [place] [address] [id number] Elizabeth Ryder MD Three [facility] [address] [place] [address] INJECTION EPIDURAL STEROID [id number] 07/13/2025 11:00 AM CDT Office Visit [facility] Multispecialty Care - [facility] 3 [facility] [address] [place] [address] Esau Hoff MD 3 [facility] [address] [place] [address] 09/13/2025 7:40 AM ASSISTANT AUTO CENTER MANAGER Office Visit [facility] Family & Internal Medicine - [address] [address] Kyele Villanueva MD [address] [place] [address] [place] [address] Scheduled Procedures Name Priority Associated Diagnoses Date/Ti me INJECTION TRIGGER POINT Myofascial pain 06/07/2025 5:00 PM CDT INJECTION EPIDURAL STEROID CERVICAL Cervical radiculopathy 07/13/2025 9:00 AM CDT documented as of this encounter Visit Diagnoses Diagnosis Cervical stenosis of spinal canal- Primary Spinal stenosis in cervical region Myofascial pain Mylagia and myositis, unspecified Cervical radiculopathy Brachial neuritis or radiculitis nos documented in this encounter Additional Health Concerns Infection Onset Date Last Indicated Resolved Time COVID-19 Rule Out 08/30/2024 08/30/2024 08/30/2024 8:14 AM ASSISTANT AUTO CENTER MANAGER COVID-19 Rule Out 11/03/2024 11/03/2024 11/03/2024 10:48 AM ASSISTANT AUTO CENTER MANAGER documented as of this encounter Care Teams Print Support Specialist Relationship Specialty [place] [address] [facility]. [address] [place] [address] PCP - General FAMILY PRACTICE 06/07/23 Alberto Avendano MD NEUROLOGICAL SURGERY 11/24/21 documented as of this encounter
--- OUTSIDE RECORDS SUMMARY | 2025-05-30 00:42 | XMS_ITS | Encounter Summary ---
Author Organization [facility] Address [address] [place] [address] Care Team Providers Care Bowling Ball Patcher Name Role Phone Alberto Avendano MD Unavailable [phone] Kylee Villanueva MD Primary Care Provider [phone] Encounter Details Date Type Department Care Team (Late st Contact Info) Description 08/29/2024 Timeline Labs / TLL Message Enc [facility] Family & Internal Medicine [facility] [id number] [place] [address] [place], [place] [id number] [place] [address] Appt Social History Tobacco Use Types [...] Sex Assigned at Female 11/14/2024 2:54 PM BLEACH BOILER PULLER Legal Sex Female 11:06 AM CDT Gender Identity Female 05/11/2025 1:56 PM CDT Sexual Orientation Not on file documented as of this encounter Functional Status * Over the past 2 weeks, how often have you been bothered by any of the following problems? Question Answer Date of Assessment Author Status Little interest or pleasure in doing things Not at all 08/30/2024 6:56 AM Araceli Santos MA Act martha Feeling down, depressed, or hopeless Not at all 08/30/2024 6:56 AM Araceli Santos MA Active Patient Health Questionnaire-2 Score 0 08/30/2024 6:56 AM Araceli Santos MA Active documented as of this encounter Plan of Treatment Upcoming Encounters Date Type Department Care Team (Latest Contact Info) Description 06/07/2025 5:00 PM CDT Hospital Encounter [facility] Interventional [place] [address] [id number] Elizabeth Ryder MD [address] [address] 06/07/2025 5:00 PM CDT - 06/07/2025 5:20 PM CDT Surgery [facility] Interventional [place] [address] [id number] Elizabeth Ryder MD Three [facility] [address] [place] [address] INJECTION TRIGGER POINT-cervivcal/th oracic 06/11/2025 2:40 PM CDT Office Visit [facility] Orthopedic & Sports Medicine - [place] [address] [place] [address] Reynaldo Bunch MD [address] [place] [address] 07/13/2025 9:00 AM CDT Hospital Encounter [facility] Interventional [place] [address] [id number] Elizabeth Ryder MD Three [facility] [address] [place] [address] 07/13/2025 9:00 AM CDT - 07/13/2025 9:20 AM CDT Surgery [facility] [place] [address] [id number] Elizabeth Ryder MD Three [facility] Suite [facility] [place] [address] INJECTION EPIDURAL STEROID [id number] 07/13/2025 11:00 AM CDT Office Visit [facility] Multispecialty Care - [address], [address] [place] [address] Esau Hoff MD [address] [place] [address] [place] [address] 09/13/2025 7:40 AM BLEACH BOILER PULLER Office Visit [facility] Family & Internal Medicine - [address] [address] Kylee Villanueva MD [address] [place] [address] [place] [address] Scheduled Procedures Name Priority Associated Diagnoses Date/Ti me INJECTION TRIGGER POINT Myofascial pain 06/07/2025 5:00 PM CDT INJECTION EPIDURAL STEROID CERVICAL Cervical radiculopathy 07/13/2025 9:00 AM CDT documented as of this encounter Visit Diagnoses Not on filedocumented in this encounter Additional Health Concerns Infection Onset Date Last Indicated Resolved Time COVID-19 Rule Out 08/30/2024 08/30/2024 08/30/2024 8:14 AM BLEACH BOILER PULLER COVID-19 Rule Out 11/03/2024 11/03/2024 11/03/2024 10:48 AM BLEACH BOILER PULLER documented as of this encounter Care Teams Bowling Ball Patcher Relationship Specialty Start [place] [address] [facility]. [address] [place] [address] PCP - General FAMILY PRACTICE 06/07/23 Alberto Avendano MD NEUROLOGICAL SURGERY 11/24/21 documented as of this encounter
--- OUTSIDE RECORDS SUMMARY | 2025-05-30 00:42 | XMS_ITS | Encounter Summary ---
Author Organization [facility] Address [address] [place] [address] Care Team Providers Care Investigator Narcotics Name Role Phone Viv Hamm Primary Care Provider [phone] Alberto Avendano MD Unavailable [phone] Kylee Villanueva MD Primary Care Provider [phone] Reason for Visit * Reason Onset Date Comments Follow Up 08/24/2022 Encounter Details Date Type Department Care Team (Late st Contact Info) Description 08/24/2022 Telephone [facility] Interventional [place] [address] [id number] Alberto Bueno, RN Follow Up Social History Tobacco Use Types Packs/Day Years [...] Sex Assigned at Female 11/14/2024 2:54 PM ORGAN PIPE MAKER METAL Legal Sex Female 11:06 AM CDT Gender Identity Female 05/11/2025 1:56 PM CDT Sexual Orientation Not on file COVID-19 Exposure Response Date Recorded In the last 10 days, have yo u been in contact with someone who was confirmed or suspected to have Coronavirus/COVID-19? No / Unsure 08/26/2022 3:03 PM CDT documented as of this encounter Progress Notes * Alberto Bueno RN - 08/24/2022 11:06 AM CDT PAIN DIARY COMPLETED. PRE- INJECTION PAIN SCORE WAS 4/10 AND POST INJECTION WAS 2/10. THEN 1 HOUR POST INJECTION THROUGH 4 HOURS POST INJECTION PAIN WAS 3/10. AT BEDTIME PAIN WAS 4/10. AT THAT TIME PATIENT TOOK GABAPENTIN FOR PAIN RELIEF WHICH BROUGHT HER PAIN SCORE DOWN TO 1-2/10 FOR DAY 1. FOR DAY 2 PATIENT'S PAIN WAS 4/10 ONLY BECAUSE SHE OPTED NOT TO TAKE ANY PAIN MEDS BECAUSE THEY MADE HER SICK TO HER STOMACH. SHE STATED HER OVERALL % OF RELIEF WAS 0. HER AVERAGE PAIN SCORE WAS 3/10. HER DAILY ACTIVITIES HAVE NOT INCREASED AT ALL AND SLEEP HAS NOT IMPROVED. SHE IS SCHEDULED FOR MBB#2 ON 09/11/22. documented in this encounter Plan of Treatment Upcoming Encounters Date Type Department Care Team (Latest Contact Info) Description 06/07/2025 5:00 PM CDT Hospital Encounter [facility] Interventional [place] [address] [id number] Elizabeth Ryder MD Three [facility] [address] [place] [address] 06/07/2025 5:00 PM CDT - 06/07/2025 5:20 PM CDT Surgery [facility] Interventional [place] [address] [id number] Elizabeth Ryder MD Three [facility] [address] [place] [address] INJECTION TRIGGER POINT-cervivcal/th oracic 06/11/2025 2:40 PM CDT Office Visit [facility] Medical [facility] Orthopedic & Sports Medicine - [place] [address] [place] [address] Reynaldo Bunch MD [address] [place] [address] 07/13/2025 9:00 AM CDT Hospital Encounter [facility] Interventional Pain [place] [address] [id number] Elizabeth Ryder MD Three [facility] [address] [place] [address] 07/13/2025 9:00 AM CDT - 07/13/2025 9:20 AM CDT Surgery [facility] Interventional [place] [address] [id number] Elizabeth Ryder MD Three [facility] [address] [place] [address] INJECTION EPIDURAL STEROID [id number] 07/13/2025 11:00 AM CDT Office Visit [facility] Multispecialty Care - [facility] 3 [facility], [address] [place] [address] Esau Hoff MD [address] [address] 09/13/2025 7:40 AM ORGAN PIPE MAKER METAL Office Visit [facility] Medical Group Family & Internal Medicine [facility] [address] [place] [phone] [place] [address] [facility]. [address] [place] [address] Scheduled Procedures Name Priority Associated Diagnoses Date/Ti me INJECTION TRIGGER POINT Myofascial pain 06/07/2025 5:00 PM CDT INJECTION EPIDURAL STEROID CERVICAL Cervical radiculopathy 07/13/2025 9:00 AM CDT documented as of this encounter Visit Diagnoses Not on filedocumented in this encounter Additional Health Concerns Infection Onset Date Last Indicated Resolved Time COVID-19 Rule Out 12/13/2023 12/13/2023 12/13/2023 8:54 AM ORGAN PIPE MAKER METAL COVID-19 Rule Out 08/30/2024 08/30/2024 08/30/2024 8:14 AM ORGAN PIPE MAKER METAL COVID-19 Rule Out 11/03/2024 11/03/2024 11/03/2024 10:48 AM ORGAN PIPE MAKER METAL documented as of this encounter Care Teams Investigator Narcotics Relationship Specialty [place] [address] [place] [address] PCP - General PHYSICIAN MUSHROOM PACKER 02/03/21 06/06/23 [place] [address] [facility] [place]. [address] [place] [address] PCP - General FAMILY PRACTICE 06/07/23 [place] [address] [place] [address] NEUROLOGICAL SURGERY 11/24/21 documented as of this encounter
--- OUTSIDE RECORDS SUMMARY | 2025-05-30 00:42 | XMS_ITS | Encounter Summary ---
Author Organization [facility] Address [address] [place] [address] Care Team Providers Care Rubber And Pounder Name Role Phone Alberto Avendano MD Unavailable [phone] Kylee Villanueva MD Primary Care Provider [phone] Encounter Details Date Type Department Care Team (Late st Contact Info) Description 03/13/2024 Zhima Techt Message Enc [facility] Medical Group Family & Internal Medicine [address] [address] Kylee Villanueva MD [address] [place] [address]. [address] [place] [address] Abnormal EKG Social History Tobacco Use Types Packs/Day Years [...] Sex Assigned at Female 11/14/2024 2:54 PM VISITOR SERVICES ASSOCIATE Legal Sex Female 11:06 AM CDT Gender Identity Female 05/11/2025 1:56 PM CDT Sexual Orientation Not on file documented as of this encounter Progress Notes * Anabell Vallecillo MA - 03/14/2024 12:12 PM CDT Advise? documented in this encounter Plan of Treatment Upcoming Encounters Date Type Department Care Team (Latest Contact Info) Description 06/07/2025 5:00 PM CDT Hospital Encounter [facility] Interventional [place] [address] [id number] Elizabeth Ryder MD Three [facility] [address] [place] [address] 06/07/2025 5:00 PM CDT - 06/07/2025 5:20 PM CDT Surgery [facility] [place] [address] [id number] Elizabeth Ryder MD Three [facility] [address] [place] [address] INJECTION TRIGGER POINT-cervivcal/th oracic 06/11/2025 2:40 PM CDT Office Visit [facility] Medical Group Orthopedic & Sports Medicine - [place] [address] [place] [address] Reynaldo Bunch MD [address] [place] [address] 07/13/2025 9:00 AM CDT Hospital Encounter [facility] Interventional [place] [address] [id number] Elizabeth Ryder MD Three [facility] [address] [place] [address] 07/13/2025 9:00 AM CDT - 07/13/2025 9:20 AM CDT Surgery [facility] Interventional [place] [address] [id number] Elizabeth Ryder MD Three [facility] [address] [place] [address] INJECTION EPIDURAL STEROID [id number] 07/13/2025 11:00 AM CDT Office Visit [facility] Multispecialty Care - [address], [address] [place] [address] Esau Hoff MD [address] [place] [address] 09/13/2025 7:40 AM VISITOR SERVICES ASSOCIATE Office Visit [facility] Medical Group Family & Internal Medicine - [address] [address] Kylee Villanueva MD [address] [place] [address] [place] [address] Scheduled Procedures Name Priority Associated Diagnoses Date/Ti me INJECTION TRIGGER POINT Myofascial pain 06/07/2025 5:00 PM CDT INJECTION EPIDURAL STEROID CERVICAL Cervical radiculopathy 07/13/2025 9:00 AM CDT documented as of this encounter Visit Diagnoses Not on filedocumented in this encounter Additional Health Concerns Infection Onset Date Last Indicated Resolved Time COVID-19 Rule Out 08/30/2024 08/30/2024 08/30/2024 8:14 AM VISITOR SERVICES ASSOCIATE COVID-19 Rule Out 11/03/2024 11/03/2024 11/03/2024 10:48 AM VISITOR SERVICES ASSOCIATE documented as of this encounter Care Teams Rubber And Pounder Relationship Specialty Start [place] [address] [facility]. [address] [place] [address] PCP - General FAMILY PRACTICE 06/07/23 Alberto Avendano MD NEUROLOGICAL SURGERY 11/24/21 documented as of this encounter
--- OUTSIDE RECORDS SUMMARY | 2025-05-30 00:42 | XMS_ITS | Encounter Summary ---
Author Organization [facility] Address [facility] [place] [address] Care Team Providers Care Client Account Manager Name Role Phone Viv Hamm Primary Care Provider [phone] Alberto Avendano MD Unavailable [phone] Kylee Villanueva MD Primary Care Provider [phone] Encounter Details Date Type Department Care Team (Late st Contact Info) Description 09/16/[address] [facility] Medical Group Family & Internal Medicine [facility] [address] [place] [address] [place] [address] [place] [address] Blood Test Results Social History Tobacco Use Types [...] Assigned at Female 11/14/2024 2:54 PM TECHNICAL STAFF ENGINEER Legal Sex Female 11:06 AM CDT Gender Identity Female 05/11/2025 1:56 PM CDT Sexual Orientation Not on file COVID-19 Exposure Response Date Recorded In the last 10 days, have yo u been in contact with someone who was confirmed or suspected to have Coronavirus/COVID-19? No / Unsure 09/16/2022 11:34 AM TECHNICAL STAFF ENGINEER documented as of this encounter Plan of Treatment Upcoming Encounters Date Type Department Care Team (Latest Contact Info) Description 06/07/2025 5:00 PM CDT Hospital En[facility] Inter[facility] [place] [address] [id number] Elizabeth Ryder MD Three [address] [address] 06/07/2025 5:00 PM CDT - 06/07/2025 5:20 PM CDT [facility] [place] [address] [id number] Elizabeth Ryder MD [address] [address] INJECTION TRIGGER POINT-cervivcal/th oracic 06/11/2025 2:40 PM CDT Office Visit [facility] Medical [facility] Orthopedic & Sports Medicine - [place] [address] [place] [address] Reynaldo Bunch MD [address] [place] [address] 07/13/2025 9:00 AM CDT Hospital Encounter [facility] Inter[facility] [place] [address] [phone] Elizabeth Ryder MD Three [facility] [address] [place] [address] 07/13/2025 9:00 AM CDT - 07/13/2025 9:20 AM CDT [facility] Interventional Pain [place] [address] [id number] Elizabeth Ryder MD Three [facility] [address] [place] [address] INJECTION EPIDURAL STEROID [id number] 07/13/2025 11:00 AM CDT Office Visit [facility] Medical [facility] Multispecialty Care - [facility] 3 [facility], [address] [place] [address] Esau Hoff MD 3 [facility] [address] [place] [address] 09/13/2025 7:40 AM TECHNICAL STAFF ENGINEER Office Visit [facility] Medical Group Family & Internal Medicine - [address] [address] Kylee Villanueva MD [address] [place] [address] [place] [address] Scheduled Procedures Name Priority Associated Diagnoses Date/Ti me INJECTION TRIGGER POINT Myofascial pain 06/07/2025 5:00 PM CDT INJECTION EPIDURAL STEROID CERVICAL Cervical radiculopathy 07/13/2025 9:00 AM CDT documented as of this encounter Visit Diagnoses Not on filedocumented in this encounter Additional Health Concerns Infection Onset Date Last Indicated Resolved Time COVID-19 Rule Out 12/13/2023 12/13/2023 12/13/2023 8:54 AM TECHNICAL STAFF ENGINEER COVID-19 Rule Out 08/30/2024 08/30/2024 08/30/2024 8:14 AM TECHNICAL STAFF ENGINEER COVID-19 Rule Out 11/03/2024 11/03/2024 11/03/2024 10:48 AM TECHNICAL STAFF ENGINEER documented as of this encounter Care Teams Client Account Manager Relationship Specialty [place] [address] [place] [address] PCP - General PHYSICIAN TRAFFIC OR SYSTEM DISPATCHER 02/03/21 06/06/23 [place] [address] [address] [place] [address] PCP - General FAMILY PRACTICE 06/07/23 [place] [address] [place] [address] NEUROLOGICAL SURGERY 11/24/21 documented as of this encounter
--- OUTSIDE RECORDS SUMMARY | 2025-05-30 00:42 | XMS_ITS | Encounter Summary ---
Author Organization [facility] Address [facility] [place] [address] Care Team Providers Care Deckhand Shrimp Boat Name Role Phone Viv Hamm Primary Care Provider [phone] Alberto Avendano MD Unavailable [phone] Kylee Villanueva MD Primary Care Provider [phone] Encounter Details Date Type Department Care Team (Late st Contact Info) Description 09/30/2022 Turpitude Message Enc [facility] Medical Group Family & Internal Medicine [address] [address] [facility] Provider Lab work results Social History Tobacco Use Types Packs/Day [...] Sex Assigned at Female 11/14/2024 2:54 PM TECHNOLOGY SPECIALIST Legal Sex Female 11:06 AM CDT Gender Identity Female 05/11/2025 1:56 PM CDT Sexual Orientation Not on file COVID-19 Exposure Response Date Recorded In the last 10 days, have yo u been in contact with someone who was confirmed or suspected to have Coronavirus/COVID-19? No / Unsure 09/21/2022 1:58 PM TECHNOLOGY SPECIALIST documented as of this encounter Plan of Treatment Upcoming Encounters Date Type Department Care Team (Latest Contact Info) Description 06/07/2025 5:00 PM CDT Hospital Encounter [facility] Interventional [place] [address] [phone] Elizabeth Ryder MD Three [address] [address] 06/07/2025 5:00 PM CDT - 06/07/2025 5:20 PM CDT Surgery [facility] [place] [address] [id number] Elizabeth Ryder MD Three [address] [address] INJECTION TRIGGER POINT-cervivcal/th oracic 06/11/2025 2:40 PM CDT Office Visit [facility] Medical Group Orthopedic & Sports Medicine - [place] [address] [place] [address] Reynaldo Bunch MD [address] [place] [address] 07/13/2025 9:00 AM CDT Hospital Encounter [facility] Interventional [place] [address] [id number] Elizabeth Ryder MD Three [facility] [address] [place] [address] 07/13/2025 9:00 AM CDT - 07/13/2025 9:20 AM CDT Surgery [facility] Interventional [place] [address] [id number] Elizabeth Ryder MD Three [facility] [address] [place] [address] INJECTION EPIDURAL STEROID [id number] 07/13/2025 11:00 AM CDT Office Visit [facility] Multispecialty Care - [facility] 3 [facility], [address] [place] [address] Esau Hoff MD 3 [facility] [address] [place] [address] 09/13/2025 7:40 AM TECHNOLOGY SPECIALIST Office Visit [facility] Medical [facility] Family & Internal Medicine - [address] [address] Kylee Villanueva MD [address] [place] [address] [place] [id number] Scheduled Procedures Name Priority Associated Diagnoses Date/Ti me INJECTION TRIGGER POINT Myofascial pain 06/07/2025 5:00 PM CDT INJECTION EPIDURAL STEROID CERVICAL Cervical radiculopathy 07/13/2025 9:00 AM CDT documented as of this encounter Visit Diagnoses Not on filedocumented in this encounter Additional Health Concerns Infection Onset Date Last Indicated Resolved Time COVID-19 Rule Out 12/13/2023 12/13/2023 12/13/2023 8:54 AM TECHNOLOGY SPECIALIST COVID-19 Rule Out 08/30/2024 08/30/2024 08/30/2024 8:14 AM TECHNOLOGY SPECIALIST COVID-19 Rule Out 11/03/2024 11/03/2024 11/03/2024 10:48 AM TECHNOLOGY SPECIALIST documented as of this encounter Care Teams Deckhand Shrimp Boat Relationship Specialty [place] [address] [place] [address] PCP - General PHYSICIAN GAME PROTECTOR 02/03/21 06/06/23 [place] [address] [address] [place] [address] PCP - General FAMILY PRACTICE 06/07/23 [place] [address] [place] [address] NEUROLOGICAL SURGERY 11/24/21 documented as of this encounter
--- OUTSIDE RECORDS SUMMARY | 2025-05-30 00:42 | XMS_ITS | Encounter Summary ---
Author Organization [facility] Address [facility] [place] [address] Care Team Providers Care Mining Detail Draftsperson Name Role Phone Viv Hamm Primary Care Provider [phone] Alberto Avendano MD Unavailable [phone] Kylee Villanueva MD Primary Care Provider [phone] Encounter Details Date Type Department Care Team (Late st Contact Info) Description 09/24/2022 Networkerhart Message Enc [facility] Medical Group Family & Internal Medicine [facility] [address] [place] [address] [place] Hamm [place] [address] [place] [address] Omeprazole 20mg Refill Social History Tobacco Use Types Packs/Day Years [...] Sex Assigned at Female 11/14/2024 2:54 PM AIRPLANE RIGGER Legal Sex Female 11:06 AM CDT Gender Identity Female 05/11/2025 1:56 PM CDT Sexual Orientation Not on file COVID-19 Exposure Response Date Recorded In the last 10 days, have yo u been in contact with someone who was confirmed or suspected to have Coronavirus/COVID-19? No / Unsure 09/21/2022 1:58 PM AIRPLANE RIGGER documented as of this encounter Plan of Treatment Upcoming Encounters Date Type Department Care Team (Latest Contact Info) Description 06/07/2025 5:00 PM CDT Hospital Encounter [facility] Interventional [place] [address] [id number] Elizabeth Ryder MD Three [facility] [address] [place] [address] 06/07/2025 5:00 PM CDT - 06/07/2025 5:20 PM CDT Surgery [facility] Interventional [place] [address] [id number] Elizabeth Ryder MD Three [facility] [address] [place] [address] INJECTION TRIGGER POINT-cervivcal/th oracic 06/11/2025 2:40 PM CDT Office Visit [facility] Medical Group Orthopedic & Sports Medicine - [place] [address] [place] [address] Reynaldo Bunch MD [address] [place] [address] 07/13/2025 9:00 AM CDT Hospital Encounter [facility] Interventional Pain [place] [address] [id number] Elizabeth Ryder MD Three [facility] [address] [place] [address] 07/13/2025 9:00 AM CDT - 07/13/2025 9:20 AM CDT Surgery [facility] Interventional Pain Management [place] [address] [id number] Elizabeth Ryder MD Three [facility] [address] [place] [address] INJECTION EPIDURAL STEROID [id number] 07/13/2025 11:00 AM CDT Office Visit [facility] Medical [facility] Multispecialty Care - [facility] 3 [facility], [address] [place] [address] Esau Hoff MD 3 [facility] [address] [place] [address] 09/13/2025 7:40 AM AIRPLANE RIGGER Office Visit [facility] Medical Group Family & Internal Medicine - [address] [address] Kylee Villanueva MD [address] [place] [address] [place] [address] [id number] Scheduled Procedures Name Priority Associated Diagnoses Date/Ti me INJECTION TRIGGER POINT Myofascial pain 06/07/2025 5:00 PM CDT INJECTION EPIDURAL STEROID CERVICAL Cervical radiculopathy 07/13/2025 9:00 AM CDT documented as of this encounter Visit Diagnoses Not on filedocumented in this encounter Additional Health Concerns Infection Onset Date Last Indicated Resolved Time COVID-19 Rule Out 12/13/2023 12/13/2023 12/13/2023 8:54 AM AIRPLANE RIGGER COVID-19 Rule Out 08/30/2024 08/30/2024 08/30/2024 8:14 AM AIRPLANE RIGGER COVID-19 Rule Out 11/03/2024 11/03/2024 11/03/2024 10:48 AM AIRPLANE RIGGER documented as of this encounter Care Teams Mining Detail Draftsperson Relationship Specialty [place] [address] [place] [address] PCP - General PHYSICIAN GRAPHIC DESIGN INTERN 02/03/21 06/06/23 [place] [address] [address] [place] [address] PCP - General FAMILY PRACTICE 06/07/23 [place] [address] [place] [address] NEUROLOGICAL SURGERY 11/24/21 documented as of this encounter
--- OUTSIDE RECORDS SUMMARY | 2025-05-30 00:42 | XMS_ITS | Encounter Summary ---
Author Organization [facility] Address [facility] [place] [address] Care Team Providers Care Life Enrichment Director Name Role Phone Viv Hamm Primary Care Provider [phone] Alberto Avendano MD Unavailable [phone] Kylee Villanueva MD Primary Care Provider [phone] Encounter Details Date Type Department Care Team (Late st Contact Info) Description 06/04/2022 MyChart Message Enc [facility] Medical Group Family & Internal Medicine [facility] [address] [place] [address] Viv Hamm [place] [address] [place] [address] [address] [address] Scan Results Social History Tobacco Use Types Packs/Day [...] Sex Assigned at Female 11/14/2024 2:54 PM SIDEWALK INSPECTOR Legal Sex Female 11:06 AM CDT Gender Identity Female 05/11/2025 1:56 PM CDT Sexual Orientation Not on file COVID-19 Exposure Response Date Recorded In the last 10 days, have yo u been in contact with someone who was confirmed or suspected to have Coronavirus/COVID-19? No / Unsure 06/05/2022 10:12 AM CDT documented as of this encounter Functional Status * Calculated C-SSRS Risk Score (Lifetime/Recent) Answer Date of Assessment Author Status No Risk Indicated 06/05/2022 10:20 AM CDT Denilson Roque RN Active * [place] Suicide Severity Rating Scale (Screener/Recent Self-Report) Question Answer Date of Assessment Author Status 1. Wish to be (Past 1 Month) No 06/05/2022 10:20 AM CDT Cathryn Roque RN Act martha 2. Non-Specific Active Suicidal Thoughts (Past 1 Month) No 06/05/2022 10:20 AM CDT Cathryn Roque RN Act martha 6. Suicidal Behavior (Lifetime) No 06/05/2022 10:20 AM CDT Cathryn Roque RN Act martha documented as of this encounter Plan of Treatment Upcoming Encounters Date Type Department Care Team (Latest Contact Info) Description 06/07/2025 5:00 PM CDT Hospital Encounter [facility] Interventional [place] [address] [id number] Elizabeth Ryder MD Three [facility] [place] [address] 06/07/2025 5:00 PM CDT - 06/07/2025 5:20 PM CDT Surgery [facility] Interventional Pain Management Center [address] [facility] [place] [address] [id number] Elizabeth Ryder MD Three [facility] [address] [place] [address] INJECTION TRIGGER POINT-cervivcal/th oracic 06/11/2025 2:40 PM CDT Office Visit [facility] Medical [facility] Orthopedic & Sports Medicine - [place] [address] [place] [address] Reynaldo Bunch MD [address] [place] [address] 07/13/2025 9:00 AM CDT Hospital Encounter [facility] Interventional [place] [address] [id number] Elizabeth Ryder MD Three [facility] [address] [place] [address] 07/13/2025 9:00 AM CDT - 07/13/2025 9:20 AM CDT Surgery [facility] Interventional Pain [place] [address] [id number] Elizabeth Ryder MD Three [facility] [address] [place] [address] INJECTION EPIDURAL STEROID [id number] 07/13/2025 11:00 AM CDT Office Visit [facility] Multispecialty Care - [facility] 3 [facility], [address] [place] [address] Esau Hoff MD 3 [facility] [address] [address] 09/13/2025 7:40 AM SIDEWALK INSPECTOR Office Visit [facility] Medical Group Family & Internal Medicine [facility] [address] [place] [address] [place] [address] [facility]. [address] [place] [address] Scheduled Procedures Name Priority Associated Diagnoses Date/Ti me INJECTION TRIGGER POINT Myofascial pain 06/07/2025 5:00 PM CDT INJECTION EPIDURAL STEROID CERVICAL Cervical radiculopathy 07/13/2025 9:00 AM CDT documented as of this encounter Visit Diagnoses Not on filedocumented in this encounter Additional Health Concerns Infection Onset Date Last Indicated Resolved Time COVID-19 Rule Out 12/13/2023 12/13/2023 12/13/2023 8:54 AM SIDEWALK INSPECTOR COVID-19 Rule Out 08/30/2024 08/30/2024 08/30/2024 8:14 AM SIDEWALK INSPECTOR COVID-19 Rule Out 11/03/2024 11/03/2024 11/03/2024 10:48 AM SIDEWALK INSPECTOR documented as of this encounter Care Teams Life Enrichment Director Relationship Specialty [place] [address] [place] [address] PCP - General PHYSICIAN GILL BOX FIXER 02/03/21 06/06/23 [place] [address] [facility]. [address] [place] [address] PCP - General FAMILY PRACTICE 06/07/23 [place] [address] [place] [address] NEUROLOGICAL SURGERY 11/24/21 documented as of this encounter
--- OUTSIDE RECORDS SUMMARY | 2025-05-30 00:42 | XMS_ITS | Encounter Summary ---
Author Organization [facility] Address [address] [place] [address] Care Team Providers Care Inspector Grain Mill Products Name Role Phone Viv Hamm Primary Care Provider [phone] Alberto Avendano MD Unavailable [phone] Kylee Villanueva MD Primary Care Provider [phone] Encounter Details Date Type Department Care Team (Late st Contact Info) Description 10/05/2022 Pre-Procedure Call [facility] Interventional [place] [address] [id number] [place] [address] [address] Social History Tobacco Use Types Packs/Day Years [...] Sex Assigned at Female 11/14/2024 2:54 PM [employer]IONAL COMPANY TRUCK DRIVER Legal Sex Female 11:06 AM CDT Gender Identity Female 05/11/2025 1:56 PM CDT Sexual Orientation Not on file COVID-19 Exposure Response Date Recorded In the last 10 days, have yo u been in contact with someone who was confirmed or suspected to have Coronavirus/COVID-19? No / Unsure 10/06/2022 7:22 AM REGIONAL COMPANY TRUCK DRIVER documented as of this encounter Functional Status * Calculated C-SSRS Risk Score (Lifetime/Recent) Answer Date of Assessment Author Status No Risk Indicated 10/06/2022 7:33 AM [employer]IONAL COMPANY TRUCK DRIVER Monica Vázquez RN Active * [place] Suicide Severity Rating Scale (Screener/Recent Self-Report) Question Answer Date of Assessment Author Status 1. Wish to be (Past 1 Month) No 10/06/2022 7:33 AM Allyson López RN Ac tive 2. Non-Specific Active Suicidal Thoughts (Past 1 Month) No 10/06/2022 7:33 AM Allyson López RN Ac tive 6. Suicidal Behavior (Lifetime) No 10/06/2022 7:33 AM Allyson López RN Ac tigarima documented as of this encounter Plan of Treatment Upcoming Encounters Date Type Department Care Team (Latest Contact Info) Description 06/07/2025 5:00 PM CDT Hospital Encounter [facility] [place] [address] [id number] Elizabeth Ryder MD Three [facility] Suite [facility] [place] [address] 06/07/2025 5:00 PM CDT - 06/07/2025 5:20 PM CDT Surgery [facility] Center [address] [facility] [address] [id number] Elizabeth Ryder MD Three [facility] [address] [place] [address] INJECTION TRIGGER POINT-cervivcal/th oracic 06/11/2025 2:40 PM CDT Office Visit [facility] Medical [facility] Orthopedic & Sports Medicine - [place] [address] [place] [address] Reynaldo Bunch MD [address] [place] [address] 07/13/2025 9:00 AM CDT Hospital Encounter [facility] [place] [address] [id number] Elizabeth Ryder MD Three [facility] [address] [place] [address] 07/13/2025 9:00 AM CDT - 07/13/2025 9:20 AM CDT Surgery [facility] [place] [address] [id number] Elizabeth Ryder MD Three [facility] [address] [place] [address] INJECTION EPIDURAL STEROID [id number] 07/13/2025 11:00 AM CDT Office Visit [facility] Multispecialty Care - [facility] 3 [facility], [address] [place] [address] Esau Hoff MD 3 [facility] [address] [address] 09/13/2025 7:40 AM [employer] COMPANY TRUCK DRIVER Office Visit [facility] Medical Group Family & Internal Medicine [facility] [address] [place] [phone] [place] [address] [facility] Wes. [address] [place] [address] Scheduled Procedures Name Priority Associated Diagnoses Date/Ti me INJECTION TRIGGER POINT Myofascial pain 06/07/2025 5:00 PM CDT INJECTION EPIDURAL STEROID CERVICAL Cervical radiculopathy 07/13/2025 9:00 AM CDT documented as of this encounter Visit Diagnoses Not on filedocumented in this encounter Additional Health Concerns Infection Onset Date Last Indicated Resolved Time COVID-19 Rule Out 12/13/2023 12/13/2023 12/13/2023 8:54 AM REGIONAL COMPANY TRUCK DRIVER COVID-19 Rule Out 08/30/2024 08/30/2024 08/30/2024 8:14 AM [employer]AL COMPANY TRUCK DRIVER COVID-19 Rule Out 11/03/2024 11/03/2024 11/03/2024 10:48 AM [employer] COMPANY TRUCK DRIVER documented as of this encounter Care Teams Inspector [employer] Relationship Specialty [place] [address] [place] [address] PCP - General PHYSICIAN HAND CIGAR MAKING SUPERVISOR 02/03/21 06/06/23 [place] [address] [facility] [place] [address] PCP - General FAMILY PRACTICE 06/07/23 [place] [address] [place] [address] NEUROLOGICAL SURGERY 11/24/21 documented as of this encounter
--- OUTSIDE RECORDS SUMMARY | 2025-05-30 00:42 | XMS_ITS | Encounter Summary ---
Author Organization [facility] Address [facility]ly [facility] [place] [address] Care Team Providers Care Metalsmith Helper Name Role Phone Viv Hamm Primary Care Provider [phone] Alberto Avendano MD Unavailable [phone] Kylee Villanueva MD Primary Care Provider [phone] Encounter Details Date Type Department Care Team (Late st Contact Info) Description 06/04/2022 MyChart Message Enc [facility] Medical Group Multispecialty Care - [facility] 3 [facility] [address], [address] [place] [address] Shane Noble MD 1 [place] [address] Gabapentin Social History Tobacco Use Types Packs/Day Years [...] Sex Assigned at Female 11/14/2024 2:54 PM CLIENT ADMINISTRATOR Legal Sex Female 11:06 AM CDT Gender [...] AM CDT Denilson Roque RN Active * [place] Suicide Severity Rating Scale (Screener/Recent Self-Report) Question [...] Act martha documented as of this encounter Progress Notes * Elidia Brown MA - 06/04/2022 10:32 AM CDTFrom: Andres Pulido To: Dr. Shane Noble Sent: 06/04/2022 10:25 AM CDT Subject: Gabapentin Hi - I have been having some digestive issues - major bloating and some edema. I have had some tests, but inconclusive so my PCP and I discussed next steps to stop the Gabapentin to see if these symptoms go away. I have been taking the 300mg at night and it really took care of the nerve pain but the issues kind of s tarted once I started to take Gabapentin on a regular basis. I am going to pain management tomorrow for the steroid shot so if it works hopefully I would not need pain meds. Just wanted to keep you Dr Villarreal updated. Thank you, Andres Pulido documented in this encounter Plan of Treatment Upcoming Encounters Date Type Department Care Team (Latest Contact Info) Description 06/07/2025 5:00 PM CDT Hospital Encounter [facility] [place] [address] [id number] Elizabeth Ryder MD Three [address] [address] 06/07/2025 5:00 PM CDT - 06/07/2025 5:20 PM CDT Surgery [facility] Inter[place] [address] [id number] Elizabeth Ryder MD Three [address] [address] INJECTION TRIGGER POINT-cervivcal/th oracic 06/11/2025 2:40 PM CDT Office Visit [facility] Medical Group Orthopedic & Sports Medicine - [place] [address] [place] [address] Reynaldo Bunch MD [address] [place] [address] 07/13/2025 9:00 AM CDT Hospital Encounter [facility] Interventional [place] [address] [id number] Elizabeth Ryder MD Three [address] [address] 07/13/2025 9:00 AM CDT - 07/13/2025 9:20 AM CDT Surgery [facility] Interventional Pain [place] [address] [id number] Elizabeth Ryder MD Three [facility] [address] [place] [address] INJECTION EPIDURAL STEROID [id number] 07/13/2025 11:00 AM CDT Office Visit [facility] Multispecialty Care - [facility] 3 [facility] [address] [place] [address] Esau Hoff MD 3 [facility] [address] [place] [address] 09/13/2025 7:40 AM CLIENT ADMINISTRATOR Office Visit [facility] Medical [facility] Family & Internal Medicine - [address] [address] Kylee Villanueva MD [address] [place] [address] [place] [address] [phone] Scheduled Procedures Name Priority Associated Diagnoses Date/Ti me INJECTION TRIGGER POINT Myofascial pain 06/07/2025 5:00 PM CDT INJECTION EPIDURAL STEROID CERVICAL Cervical radiculopathy 07/13/2025 9:00 AM CDT documented as of this encounter Visit Diagnoses Not on filedocumented in this encounter Additional Health Concerns Infection Onset Date Last Indicated Resolved Time COVID-19 Rule Out 12/13/2023 12/13/2023 12/13/2023 8:54 AM CLIENT ADMINISTRATOR COVID-19 Rule Out 08/30/2024 08/30/2024 08/30/2024 8:14 AM CLIENT ADMINISTRATOR COVID-19 Rule Out 11/03/2024 11/03/2024 11/03/2024 10:48 AM CLIENT ADMINISTRATOR documented as of this encounter Care Teams Metalsmith Helper Relationship Specialty [place] [address] [place] [address] PCP - General PHYSICIAN TREE WRAPPER 02/03/21 06/06/23 [place] [address] [address] [place] [address] PCP - General FAMILY PRACTICE 06/07/23 [place] [address] [place] [address] NEUROLOGICAL SURGERY 11/24/21 documented as of this encounter
--- OUTSIDE RECORDS SUMMARY | 2025-05-30 00:42 | XMS_ITS | Encounter Summary ---
Author Organization [facility] Address [facility] [place] [address] Care Team Providers Care Middle School Counselor Name Role Phone Viv Hamm Primary Care Provider [phone] Alberto Avendano MD Unavailable [phone] Kylee Villanueva MD Primary Care Provider [phone] Encounter Details Date Type Department Care Team (Latest Contact Info) Description 01/25/2022 MyChart Message Enc [facility] Medical Group Multispecialty Care - [facility] 3 [facility], [address] [place] [address] Shane Noble MD 1 [place] [address] Notes from Neurosurgeons Appts Social History Tobacco Use Types Packs/Day Years [...] Sex Assigned at Female 11/14/2024 2:54 PM NURSE OB Legal Sex Female 11:06 AM CDT Gender Identity Female 05/11/2025 1:56 PM CDT Sexual Orientation Not on file COVID-19 Exposure Response Date Recorded In the last 10 days, have yo u been in contact with someone who was confirmed or suspected to have Coronavirus/COVID-19? No / Unsure 01/28/2022 6:27 PM CDT documented as of this encounter Plan of Treatment Upcoming Encounters Date Type Department Care Team (Latest Contact Info) Description 06/07/2025 5:00 PM CDT Hospital Encounter [facility] Interventional [place] [address] [id number] Elizabeth Ryder MD Three [address] [address] 06/07/2025 5:00 PM CDT - 06/07/2025 5:20 PM CDT Surgery [facility] Interventional [place] [address] [id number] Elizabeth Ryder MD Three [address] [address] INJECTION TRIGGER POINT-cervivcal/th oracic 06/11/2025 2:40 PM CDT Office Visit [facility] Medical Group Orthopedic & Sports Medicine - [place] [address] [place] [address] Reynaldo Bunch MD [address] [place] [address] 07/13/2025 9:00 AM CDT Hospital Encounter [facility] Interventional [facility] [place] [place] [place] [place] [address] [id number] Elizabeth Ryder MD Three [facility] [address] [place] [address] 07/13/2025 9:00 AM CDT - 07/13/2025 9:20 AM CDT Surgery [facility] Interventional [place] [address] [id number] Elizabeth Ryder MD Three [facility] [address] [place] [address] INJECTION EPIDURAL STEROID [id number] 07/13/2025 11:00 AM CDT Office Visit [facility] Multispecialty Care - [facility] 3 [facility], [address] [place] [address] Esau Hoff MD [address] [address] 09/13/2025 7:40 AM NURSE OB Office Visit [facility] Medical [facility] Family & Internal Medicine - [address] [address] Kylee Villanueva MD [address] [place] [address] [place] [address] [phone] Scheduled Procedures Name Priority Associated Diagnoses Date/Ti me INJECTION TRIGGER POINT Myofascial pain 06/07/2025 5:00 PM CDT INJECTION EPIDURAL STEROID CERVICAL Cervical radiculopathy 07/13/2025 9:00 AM CDT documented as of this encounter Visit Diagnoses Not on filedocumented in this encounter Additional Health Concerns Infection Onset Date Last Indicated Resolved Time COVID-19 Rule Out 12/13/2023 12/13/2023 12/13/2023 8:54 AM NURSE OB COVID-19 Rule Out 08/30/2024 08/30/2024 08/30/2024 8:14 AM NURSE OB COVID-19 Rule Out 11/03/2024 11/03/2024 11/03/2024 10:48 AM NURSE OB documented as of this encounter Care Teams Middle School Counselor Relationship Specialty [place] [address] [place] [address] PCP - General PHYSICIAN SQUILGEER 02/03/21 06/06/23 [place] [address] [address] [place] [address] PCP - General FAMILY PRACTICE 06/07/23 [place] [address] [place] [address] NEUROLOGICAL SURGERY 11/24/21 documented as of this encounter
--- OUTSIDE RECORDS SUMMARY | 2025-05-30 00:42 | XMS_ITS | Encounter Summary ---
Author Organization [facility] Address [facility] [place] [address] Care Team Providers Care Ordnance Truck Installation Supervisor Name Role Phone Viv Hamm Primary Care Provider [phone] Alberto Avendano MD Unavailable [phone] Kylee Villanueva MD Primary Care Provider [phone] Encounter Details Date Type Department Care Team (Late st Contact Info) Description 09/23/2022 BridgeLuxhart Message Enc [facility] Medical Group Family & Internal Medicine [facility] [address] [place] [address] Viv Hamm [place] [address] [place] [address] Blood Test results from Insurance application Social History Tobacco Use Types Packs/Day Years [...] Sex Assigned at Female 11/14/2024 2:54 PM GEAR GRINDING MACHINE OPERATOR Legal Sex Female 11:06 AM CDT Gender Identity Female 05/11/2025 1:56 PM CDT Sexual Orientation Not on file COVID-19 Exposure Response Date Recorded In the last 10 days, have yo u been in contact with someone who was confirmed or suspected to have Coronavirus/COVID-19? No / Unsure 09/21/2022 1:58 PM GEAR GRINDING MACHINE OPERATOR documented as of this encounter Plan of Treatment Upcoming Encounters Date Type Department Care Team (Latest Contact Info) Description 06/07/2025 5:00 PM CDT Hospital Encounter [facility] Interventional [place] [address] [id number] Elizabeth Ryder MD Three [facility] [place] [facility] [address] [place] [address] 06/07/2025 5:00 PM CDT - 06/07/2025 5:20 PM CDT Surgery [facility] Interventional [place] [address] [id number] Elizabeth Ryder MD Three [facility] [place] [facility] [address] [place] [address] INJECTION TRIGGER POINT-cervivcal/th oracic 06/11/2025 2:40 PM CDT Office Visit [facility] Medical Group Orthopedic & Sports Medicine - [place] [address] [place] [address] Reynaldo Bunch MD [address] [place] [address] 07/13/2025 9:00 AM CDT Hospital Encounter [facility] Interventional [place] [address] [id number] Elizabeth Rydre MD Three [facility] [place] [facility] [address] [place] [address] 07/13/2025 9:00 AM CDT - 07/13/2025 9:20 AM CDT Surgery [facility] Interventional Pain [place] [address] [id number] Elizabeth Ryder MD Three [facility] [place] [facility] [address] [place] [address] INJECTION EPIDURAL STEROID [id number] 07/13/2025 11:00 AM CDT Office Visit [facility] Medical [facility] Multispecialty Care - [facility] 3 [facility], [address] [place] [address] Esau Hoff MD 3 [facility] [address] [place] [address] 09/13/2025 7:40 AM GEAR GRINDING MACHINE OPERATOR Office Visit [facility] Medical Group Family & Internal Medicine - [address] [address] Kylee Villanueva MD [address] [place] [address] [place] [address] [phone] Scheduled Procedures Name Priority Associated Diagnoses Date/Ti me INJECTION TRIGGER POINT Myofascial pain 06/07/2025 5:00 PM CDT INJECTION EPIDURAL STEROID CERVICAL Cervical radiculopathy 07/13/2025 9:00 AM CDT documented as of this encounter Visit Diagnoses Not on filedocumented in this encounter Additional Health Concerns Infection Onset Date Last Indicated Resolved Time COVID-19 Rule Out 12/13/2023 12/13/2023 12/13/2023 8:54 AM GEAR GRINDING MACHINE OPERATOR COVID-19 Rule Out 08/30/2024 08/30/2024 08/30/2024 8:14 AM GEAR GRINDING MACHINE OPERATOR COVID-19 Rule Out 11/03/2024 11/03/2024 11/03/2024 10:48 AM GEAR GRINDING MACHINE OPERATOR documented as of this encounter Care Teams Ordnance Truck Installation Supervisor Relationship Specialty [place] [address] [place] [address] PCP - General PHYSICIAN INSULATOR TESTER 02/03/21 06/06/23 [place] [address] [address] [place] [address] PCP - General FAMILY PRACTICE 06/07/23 [place] [address] [place] [address] NEUROLOGICAL SURGERY 11/24/21 documented as of this encounter
--- OUTSIDE RECORDS SUMMARY | 2025-05-30 00:42 | XMS_ITS | Encounter Summary ---
Author Organization [facility] Address [address] [place] [address] Care Team Providers Care Shell Shop Supervisor Name Role Phone Alberto Avendano MD Unavailable Kylee Villanueva MD Primary Care Provider Encounter Details Date Type Department Care Team (Late st Contact Info) Description 02/20/2025 Glovicot Message Enc [facility] Medical Group Orthopedic & Sports Medicine - [place] [address] [place] [address] [phone] Reynaldo Bunch MD [address] [place] [address] Restrictions Social History Tobacco Use Types Packs/Day Years [...] Sex Assigned at Female 11/14/2024 2:54 PM VASC TECH Legal Sex Female 11:06 AM CDT Gender Identity Female 05/11/2025 1:56 PM CDT Sexual Orientation Not on file documented as of this encounter Plan of Treatment Upcoming Encounters Date Type Department Care Team (Latest Contact Info) Description 06/07/2025 5:00 PM CDT Hospital Encounter [facility] Interventional [place] [address] [id number] Elizabeth Ryder MD Three [address] [address] 06/07/2025 5:00 PM CDT - 06/07/2025 5:20 PM CDT Surgery [facility] Interventional [place] [address] [id number] Elizabeth Ryder MD Three [address] [address] INJECTION TRIGGER POINT-cervivcal/th oracic 06/11/2025 2:40 PM CDT Office Visit [facility] Medical Group Orthopedic & Sports Medicine - [place] [address] [place] [address] Reynaldo Bunch MD [address] [place] [address] 07/13/2025 9:00 AM CDT Hospital Encounter [facility] Interventional [place] [address] [id number] Elizabeth Ryder MD Three [address] [address] 07/13/2025 9:00 AM CDT - 07/13/2025 9:20 AM CDT Surgery [facility] Interventional [place] [address] [id number] Elizabeth Ryder MD Three [facility] [address] [place] [address] INJECTION EPIDURAL STEROID [id number] 07/13/2025 11:00 AM CDT Office Visit [facility] Multispecialty Care - [facility] 3 [facility] [address] [place] [address] Esau Hoff MD 3 [facility] [address] [place] [address] 09/13/2025 7:40 AM VASC TECH Office Visit [facility] Medical [facility] Family & Internal Medicine [address] [address] [place] [address] [facility] [address] [place] [address] Scheduled Procedures Name Priority Associated Diagnoses Date/Ti me INJECTION TRIGGER POINT Myofascial pain 06/07/2025 5:00 PM CDT INJECTION EPIDURAL STEROID CERVICAL Cervical radiculopathy 07/13/2025 9:00 AM CDT documented as of this encounter Visit Diagnoses Not on filedocumented in this encounter Additional Health Concerns Assessment Noted Time PHQ-9 Depression Total Score: 2 12/11/19 25 1:50 PM VASC TECH documented as of this encounter Care Teams Shell Shop Supervisor Relationship Specialty Start [place] [address] [facility]. [address] [place] [address] PCP - General FAMILY PRACTICE 06/07/23 Alberto Avendano MD NEUROLOGICAL SURGERY 11/24/21 documented as of this encounter
--- OUTSIDE RECORDS SUMMARY | 2025-05-30 00:42 | XMS_ITS | Encounter Summary ---
Author Organization [facility] Address [facility] [place] [address] Care Team Providers Care Industrial Relations Worker Name Role Phone Viv Hamm Primary Care Provider [phone] Alberto Avendano MD Unavailable [phone] Kylee Villanueva MD Primary Care Provider [phone] Encounter Details Date Type Department Care Team (Late st Contact Info) Description 03/25/2022 MyChart Message Enc [facility] Medical Group Multispecialty Care - [facility] 3 [facility], [address] [place] [address] Shane Noble MD 1 [place] [address] Gabapentin Social History Tobacco Use Types Packs/Day [...] please move on to questions 3-9 0 03/16/2022 Comments No Sex and Gender Information Value Date Recorded Sex Assigned at Female 11/14/2024 2:54 PM CIS COORDINATOR Legal Sex Female 11:06 AM CDT Gender Identity Female 05/11/2025 1:56 PM CDT Sexual Orientation Not on file COVID-19 Exposure Response Date Recorded In the last 10 days, have yo u been in contact with someone who was confirmed or suspected to have Coronavirus/COVID-19? No / Unsure 03/25/2022 9:13 AM CDT documented as of this encounter Progress Notes * Mimi Johnson MA - 03/26/2022 10:59 AM CDTSummary: Edema Please advise. Thank you. documented in this encounter Plan of Treatment Upcoming Encounters Date Type Department Care Team (Latest Contact Info) Description 06/07/2025 5:00 PM CDT Hospital Encounter [facility] [place]ventional [place] [address] [id number] Elizabeth Ryder MD Three [address] [address] 06/07/2025 5:00 PM CDT - 06/07/2025 5:20 PM CDT Surgery [facility] [place] [address] [id number] Elizabeth Ryder MD Three [facility] [address] [place] [address] INJECTION TRIGGER POINT-cervivcal/th oracic 06/11/2025 2:40 PM CDT Office Visit [facility] Medical Group Orthopedic & Sports Medicine - [place] [address] Reynaldo Bunch MD [address] [place] [address] [place] [address] 07/13/2025 9:00 AM CDT Hospital Encounter [facility] Interventional [place] [address] [id number] Elizabeth Ryder MD Three [facility] [address] [place] [address] 07/13/2025 9:00 AM CDT - 07/13/2025 9:20 AM CDT Surgery [facility] [place] [address] [id number] Elizabeth Ryder MD Three [facility] [address] [place] [address] INJECTION EPIDURAL STEROID [id number] 07/13/2025 11:00 AM CDT Office Visit [facility] Medical [facility] Multispecialty Care - [facility] 3 [facility], [address] [place] [address] Esau Hoff MD 3 [facility] [address] [place] [address] 09/13/2025 7:40 AM CIS COORDINATOR Office Visit [facility] Medical Group Family & Internal Medicine - [address] [address] Kylee Villanueva MD [address] [place] [address] [place] [address] Scheduled Procedures Name Priority Associated Diagnoses Date/Ti me INJECTION TRIGGER POINT Myofascial pain 06/07/2025 5:00 PM CDT INJECTION EPIDURAL STEROID CERVICAL Cervical radiculopathy 07/13/2025 9:00 AM CDT documented as of this encounter Visit Diagnoses Not on filedocumented in this encounter Additional Health Concerns Infection Onset Date Last Indicated Resolved Time COVID-19 Rule Out 12/13/2023 12/13/2023 12/13/2023 8:54 AM CIS COORDINATOR COVID-19 Rule Out 08/30/2024 08/30/2024 08/30/2024 8:14 AM CIS COORDINATOR COVID-19 Rule Out 11/03/2024 11/03/2024 11/03/2024 10:48 AM CIS COORDINATOR documented as of this encounter Care Teams Industrial Relations Worker Relationship Specialty [place] [address] [place] [address] PCP - General PHYSICIAN SOLID WASTE DISPOSAL MANAGER 02/03/21 06/06/23 [place] [address] [facility] [place] [address] PCP - General FAMILY PRACTICE 06/07/23 [place] [address] [facility] [place] [address] NEUROLOGICAL SURGERY 11/24/21 documented as of this encounter
--- OUTSIDE RECORDS SUMMARY | 2025-05-30 00:42 | XMS_ITS | Encounter Summary ---
Author Organization [facility] Address [address] [place] [address] Care Team Providers Care Facilities Clerk Name Role Phone Alberto Avendano MD Unavailable [phone] Kylee Villanueva MD Primary Care Provider Encounter Details Date Type Department Care Team (Late st Contact Info) Description 05/15/2024 [employer] Message Enc [facility] Medical Group Family & Internal Medicine [facility] [address] [place] [address] Viv [place], [place] [address] [place] [address] Well women exam Social History Tobacco Use Types Packs/Day Years [...] Sex Assigned at Female 11/14/2024 2:54 PM TAPING SUPERVISOR Legal Sex Female 11:06 AM CDT Gender Identity Female 05/11/2025 1:56 PM CDT Sexual Orientation Not on file documented as of this encounter Plan of Treatment Upcoming Encounters Date Type Department Care Team (Latest Contact Info) Description 06/07/2025 5:00 PM CDT Hospital Encounter [facility] Interventional [place] [address] [id number] Elizabeth Ryder MD [address] [address] 06/07/2025 5:00 PM CDT - 06/07/2025 5:20 PM CDT Surgery [facility] Interventional [place] [address] [id number] Elizabeth Ryder MD [address] [address] INJECTION TRIGGER POINT-cervivcal/th oracic 06/11/2025 2:40 PM CDT Office Visit [facility] Medical Group Orthopedic & Sports Medicine - [place] [address] [place] [address] Reynaldo Bunch MD [address] [place] [address] 07/13/2025 9:00 AM CDT Hospital Encounter [facility] Interventional [place] [address] [id number] Elizabeth Ryder MD Three [address] [address] 07/13/2025 9:00 AM CDT - 07/13/2025 9:20 AM CDT Surgery [facility] Interventional [place] [address] [id number] Elizabeth Ryder MD Three [facility] [address] [place] [address] INJECTION EPIDURAL STEROID [id number] 07/13/2025 11:00 AM CDT Office Visit [facility] Medical [facility] Multispecialty Care - [facility] 3 [facility] [address] [place] [address] Esau Hoff MD 3 [facility] [address] [place] [address] 09/13/2025 7:40 AM TAPING SUPERVISOR Office Visit [facility] Medical [facility] Family & Internal Medicine - [address] [address] Kylee Villanueva MD [address] [place] [address] [place] [id number] Scheduled Procedures Name Priority Associated Diagnoses Date/Ti me INJECTION TRIGGER POINT Myofascial pain 06/07/2025 5:00 PM CDT INJECTION EPIDURAL STEROID CERVICAL Cervical radiculopathy 07/13/2025 9:00 AM CDT documented as of this encounter Visit Diagnoses Not on filedocumented in this encounter Additional Health Concerns Infection Onset Date Last Indicated Resolved Time COVID-19 Rule Out 08/30/2024 08/30/2024 08/30/2024 8:14 AM TAPING SUPERVISOR COVID-19 Rule Out 11/03/2024 11/03/2024 11/03/2024 10:48 AM TAPING SUPERVISOR documented as of this encounter Care Teams Facilities Clerk Relationship Specialty [place] [address] [facility] [place] [address] PCP - General FAMILY PRACTICE 06/07/23 Alberto Avendano MD NEUROLOGICAL SURGERY 11/24/21 documented as of this encounter
--- OUTSIDE RECORDS SUMMARY | 2025-05-30 00:42 | XMS_ITS | Encounter Summary ---
Author Organization [facility] Address [address] [place] [address] Care Team Providers Care Machine Shop Specialist Name Role Phone Alberto Avendano MD Unavailable [phone] Kylee Villanueva MD Primary Care Provider [phone] Encounter Details Date Type Department Care Team (Late st Contact Info) Description 03/01/2025 [employer] Message Enc [facility] Interventional Pain Management Center [address] [place], [place] [phone] [id number] Elizabeth Ryder MD Three [facility] [address] [place] [address] Referral Social History Tobacco Use Types Packs/Day [...] Sex Assigned at Female 11/14/2024 2:54 PM STEEL CHECKER Legal Sex Female 11:06 AM CDT Gender Identity Female 05/11/2025 1:56 PM CDT Sexual Orientation Not on file documented as of this encounter Plan of Treatment Upcoming Encounters Date Type Department Care Team (Latest Contact Info) Description 06/07/2025 5:00 PM CDT Hospital Encounter [facility] [place] [address] [id number] Elizabeth Ryder MD [address] [address] 06/07/2025 5:00 PM CDT - 06/07/2025 5:20 PM CDT Surgery [facility] [place] [address] [id number] Elizabeth Ryder MD [address] [address] INJECTION TRIGGER POINT-cervivcal/th oracic 06/11/2025 2:40 PM CDT Office Visit [facility] Medical Group Orthopedic & Sports Medicine - [place] [address] [place] [address] Reynaldo Bunch MD [address] [place] [address] 07/13/2025 9:00 AM CDT Hospital Encounter [facility] [place] [address] [id number] Elizabeth Ryder MD Three [address] [address] 07/13/2025 9:00 AM CDT - 07/13/2025 9:20 AM CDT Surgery [facility] Interventional [place] [address] [id number] Elizabeth Ryder MD Three [facility] [address] [place] [address] INJECTION EPIDURAL STEROID [id number] 07/13/2025 11:00 AM CDT Office Visit [facility] Multispecialty Care - [facility] 3 [facility], [address] [place] [address] Esau Hoff MD 3 [facility] [address] [place] [address] 09/13/2025 7:40 AM STEEL CHECKER Office Visit [facility] Medical [facility] Family & Internal Medicine - [address] [phone] [place] [address] [facility]. [address] [place] [address] Scheduled Procedures Name Priority Associated Diagnoses Date/Ti me INJECTION TRIGGER POINT Myofascial pain 06/07/2025 5:00 PM CDT INJECTION EPIDURAL STEROID CERVICAL Cervical radiculopathy 07/13/2025 9:00 AM CDT documented as of this encounter Visit Diagnoses Not on filedocumented in this encounter Additional Health Concerns Assessment Noted Time PHQ-9 Depression Total Score: 2 12/11/19 25 1:50 PM STEEL CHECKER documented as of this encounter Care Teams Machine Shop Specialist Relationship Specialty [place] [address] [facility]. [address] [place] [address] PCP - General FAMILY PRACTICE 06/07/23 Alberto Avendano MD NEUROLOGICAL SURGERY 11/24/21 documented as of this encounter
--- OUTSIDE RECORDS SUMMARY | 2025-05-30 00:42 | XMS_ITS | Encounter Summary ---
Author Organization [facility] Address [facility] [place] [address] Care Team Providers Care Hand Paint Mixer Name Role Phone Viv Hamm Primary Care Provider [phone] Alberto Avendano MD Unavailable [phone] Kylee Villanueva MD Primary Care Provider [phone] Encounter Details Date Type Department Care Team (Latest Contact Info) Description 09/10/2022 MyChart Message Enc [facility] Medical Group Multispecialty Care - [facility] 3 [facility], [address] [place] [address] Shane Noble MD 1 [place] [address] Notes from Neurosurgeon Social History Tobacco Use Types Packs/Day [...] Sex Assigned at Female 11/14/2024 2:54 PM INSURANCE EXAMINING CLERK Legal Sex Female 11:06 AM CDT Gender Identity Female 05/11/2025 1:56 PM CDT Sexual Orientation Not on file COVID-19 Exposure Response Date Recorded In the last 10 days, have yo u been in contact with someone who was confirmed or suspected to have Coronavirus/COVID-19? No / Unsure 09/07/2022 3:39 PM INSURANCE EXAMINING CLERK documented as of this encounter Plan of Treatment Upcoming Encounters Date Type Department Care Team (Latest Contact Info) Description 06/07/2025 5:00 PM CDT Hospital Encounter [facility] Interventional [place] [address] [id number] Elizabeth Ryder MD Three [facility] [address] [place] [address] 06/07/2025 5:00 PM CDT - 06/07/2025 5:[address] [facility] [place] [address] [id number] Elizabeth Ryder MD Three [facility] [address] [place] [address] INJECTION TRIGGER POINT-cervivcal/th oracic 06/11/2025 2:40 PM CDT Office Visit [facility] Medical Group Orthopedic & Sports Medicine - [place] [address] [place] [address] Reynaldo Bunch MD [address] [place] [address] 07/13/2025 9:00 AM CDT Hospital Encounter [facility] Interventional [place] [address] [id number] Elizabeth Ryder MD Three [facility] [address] [place] [address] 07/13/2025 9:00 AM CDT - 07/13/2025 9:[address] [facility] Interventional Pain [place] [address] [id number] Elizabeth Ryder MD Three [facility] [address] [place] [address] INJECTION EPIDURAL STEROID [id number] 07/13/2025 11:00 AM CDT Office Visit [facility] Medical [facility] Multispecialty Care - [facility] 3 [facility], [address] [place] [address] Esau Hoff MD 3 [facility] [address] [place] [address] 09/13/2025 7:40 AM INSURANCE EXAMINING CLERK Office Visit [facility] Medical Group Family & Internal Medicine - [address] [address] Kylee Villanueva MD [address] [place] [address] [place] [address] [phone] Scheduled Procedures Name Priority Associated Diagnoses Date/Ti me INJECTION TRIGGER POINT Myofascial pain 06/07/2025 5:00 PM CDT INJECTION EPIDURAL STEROID CERVICAL Cervical radiculopathy 07/13/2025 9:00 AM CDT documented as of this encounter Visit Diagnoses Not on filedocumented in this encounter Additional Health Concerns Infection Onset Date Last Indicated Resolved Time COVID-19 Rule Out 12/13/2023 12/13/2023 12/13/2023 8:54 AM INSURANCE EXAMINING CLERK COVID-19 Rule Out 08/30/2024 08/30/2024 08/30/2024 8:14 AM INSURANCE EXAMINING CLERK COVID-19 Rule Out 11/03/2024 11/03/2024 11/03/2024 10:48 AM INSURANCE EXAMINING CLERK documented as of this encounter Care Teams Hand Paint Mixer Relationship Specialty [place] [address] [place] [address] PCP - General PHYSICIAN PRESCHOOL TEACHER'S ASSISTANT 02/03/21 06/06/23 [place] [address] [address] [address] PCP - General FAMILY PRACTICE 06/07/23 [place] [address] [facility] [place] [address] NEUROLOGICAL SURGERY 11/24/21 documented as of this encounter
--- OUTSIDE RECORDS SUMMARY | 2025-05-30 00:42 | XMS_ITS | Encounter Summary ---
Author Organization [facility] Address [address] [place] [address] Care Team Providers Care Cruise Guide Name Role Phone Gary Hamm Primary Care Provider [phone] Alberto Avendano MD Unavailable [phone] Kylee Villanueva MD Primary Care Provider [phone] Reason for Referral * Imaging (Routine) - Closed Specialty Diagnoses / Procedures Referred By Ramonita t Referred To Contact RADIOLOGY Diagnoses Elevated LFTs Bloating Procedures [place] [address] [place] [address] Phone: tel: fax: Referral ID Status Reason Start Date Expiration Date Visits Re quested Visits Authorized [id number] Closed 03/17/2022 04/17/2023 1 1 Encounter Details Date Type Department Care Team (Late st Contact Info) Description 03/17/2022 MyChart Message Enc [facility] Medical Group Family & Internal Medicine [facility] [address] [place] [address] [place] [address] [place] [address] Lab Results Social History Tobacco Use Types Packs/Day [...] Sex Assigned at Female 11/14/2024 2:54 PM INVESTMENT BANKING ANALYST Legal Sex Female 11:06 AM CDT Gender Identity Female 05/11/2025 1:56 PM CDT Sexual Orientation Not on file COVID-19 Exposure Response Date Recorded In the last 10 days, have yo u been in contact with someone who was confirmed or suspected to have Coronavirus/COVID-19? No / Unsure 03/18/2022 8:32 AM CDT documented as of this encounter Plan of Treatment Upcoming Encounters Date Type Department Care Team (Latest Contact Info) Description 06/07/2025 5:00 PM CDT Hospital Encounter [facility] Interventional [place] [address] [id number] Elizabeth Ryder MD [address] [address] 06/07/2025 5:00 PM CDT - 06/07/2025 5:20 PM CDT Surgery [facility] Interventional [place] [address] [id number] Elizabeth Ryder MD [address] [address] INJECTION TRIGGER POINT-cervivcal/th oracic 06/11/2025 2:40 PM CDT Office Visit [facility] Orthopedic & Sports Medicine - [place] [address] [place] [address] Reynaldo Bunch MD [address] [place] [address] 07/13/2025 9:00 AM CDT Hospital Encounter [facility] Interventional [place] [address] [id number] Elizabeth Ryder MD Three [facility] [address] [place] [address] 07/13/2025 9:00 AM CDT - 07/13/2025 9:20 AM CDT Surgery [facility] Interventional Pain [place] [address] [id number] Elizabeth Ryder MD Three [facility] [address] [place] [address] INJECTION EPIDURAL STEROID [id number] 07/13/2025 11:00 AM CDT Office Visit [facility] Multispecialty Care - [facility] 3 [facility] [address] [place] [address] Esau Hoff MD 3 [facility] [address] [place] [address] 09/13/2025 7:40 AM INVESTMENT BANKING ANALYST Office Visit [facility] Medical [facility] Family & Internal Medicine - [address] [address] Kylee Vill[place]ueva [place] [id number] [place] [address] [address] [place] [address] Scheduled Procedures Name Priority Associated Diagnoses Date/Ti me INJECTION TRIGGER POINT Myofascial pain 06/07/2025 5:00 PM CDT INJECTION EPIDURAL STEROID CERVICAL Cervical radiculopathy 07/13/2025 9:00 AM CDT documented as of this encounter Results * US ABD COMPLETE (03/25/2022 9:57 AM CDT) Anatomical Region Laterality Modality Abdomen Ultrasound 03/25/2022 10:2 6 AM CDT Impressions 03/25/2022 10:29 AM CDT IMPRESSION: 1. Heterogeneous echotexture throughout the visualized liver parenchyma, compatible with moderate fatty infiltration. The deep portions of liver not well demonstrated on this study. If further evaluation is warranted then contrast-enhanced CT could be obtained. 2. Mild hepatomegaly. No obvious hepatic lesion. Doppler evaluation of the central portal vein demonstrates patency with normal directional flow. Spleen is grossly normal in size and echotexture. 3. Cholelithiasis with multiple small mobile stones. No evidence of acute cholecystitis. No bile duct dilatation. Pancreas is segmentally visualized and negative where seen. No ascites. Normal caliber abdominal aorta. 4. The kidneys demonstrate normal cortical echotexture bilaterally. No hydronephrosis. Right kidney measures 9.8 x 4.5 x 4.5 cm. Left kidney measures 10.0 x 5.0 x 5.5 cm. Ordered By: GARY HAMM Interpreted By: Marzena Garcia, 03/25/2022 10:26 AM Narrative 03/25/2022 10:29 AM CDT EXAMINATION: US ABD COMPLETE EXAM DATE/TIME: 03/25/2022 9:17 AM CLINICAL HISTORY: Elevated LFTs. COMPARISON: No comparison. Procedure Note Charles Garcia MD - 03/25/2022 EXAMINATION: US ABD COMPLETE EXAM DATE/TIME: 03/25/2022 9:17 AM CLINICAL HISTORY: Elevated LFTs. COMPARISON: No comparison. IMPRESSION: 1. Heterogeneous echotexture throughout the visualized liver parenchyma,compatible with moderate fatty infiltration. The deep portions of livernot well demonstrated on this study. If further evaluation is warrantedthen contrast-enhanced CT could be obtained. 2. Mild hepatomegaly. No obvious hepatic lesion. Doppler evaluation ofthe central portal vein demonstrates patency with normal directional flow.Spleen is grossly normal in size and echotexture. 3. Cholelithiasis with multiple small mobile stones. No evidence of acutecholecystitis. No bile duct dilatation. Pancreas is segmentally visualizedand negative where seen. No ascites. Normal caliber abdominal aorta. 4. The kidneys demonstrate normal cortical echotexture bilaterally. Nohydronephrosis. Right kidney measures 9.8 x 4.5 x 4.5 cm. Left kidneymeasures 10.0 x 5.0 x 5.5 cm. Ordered By: GARY HAMM Interpreted By: Marzena Garcia, 03/25/2022 10:26 AM Gary METZ ULTRASOUND Final Result documented in this encounter Visit Diagnoses Diagnosis Elevated LFTs- Primary Other abnormal blood chemistry Bloating Flatulence, eructation, and gas pain Edema, unspecified type Elevated LFTs Other abnormal blood chemistry Bloating Flatulence, eructation, and gas pain Myofascial pain Mylagia and myositis, unspecified Cervical radiculopathy Brachial neuritis or radiculitis nos documented in this encounter Additional Health Concerns Infection Onset Date Last Indicated Resolved Time COVID-19 Rule Out 12/13/2023 12/13/2023 12/13/2023 8:54 AM INVESTMENT BANKING ANALYST COVID-19 Rule Out 08/30/2024 08/30/2024 08/30/2024 8:14 AM INVESTMENT BANKING ANALYST COVID-19 Rule Out 11/03/2024 11/03/2024 11/03/2024 10:48 AM INVESTMENT BANKING ANALYST documented as of this encounter Care Teams Cruise Guide Relationship Specialty [place] [address] [place] [address] PCP - General PHYSICIAN MOBILE EQUIPMENT OPERATOR 02/03/21 06/06/23 [place] [address] [address] [place] [address] PCP - General FAMILY PRACTICE 06/07/23 [place] [address] [place] [address] NEUROLOGICAL SURGERY 11/24/21 documented as of this encounter
--- OUTSIDE RECORDS SUMMARY | 2025-05-30 00:42 | XMS_ITS | Encounter Summary ---
Author Organization [facility] Address [facility] [place] [address] Care Team Providers Care Cabinet Abrasive Sandblaster Name Role Phone Viv Hamm Primary Care Provider [phone] Alberto Avendano MD Unavailable [phone] Kylee Villanueva MD Primary Care Provider [phone] Encounter Details Date Type Department Care Team (Late st Contact Info) Description 05/31/2022 MyChart Message Enc [facility] Medical Group Family & Internal Medicine [facility] [address] [place] [address] [place] Hamm [place] [id number] [place] [address] Scan Abdomen/Pelvis WWO Contrast Social History Tobacco Use Types Packs/Day Years [...] Assigned at Female 11/14/2024 2:54 PM MANAGER TECHNICAL SERVICES Legal Sex Female 11:06 AM CDT Gender Identity Female 05/11/2025 1:56 PM CDT Sexual Orientation Not on file COVID-19 Exposure Response Date Recorded In the last 10 days, have yo u been in contact with someone who was confirmed or suspected to have Coronavirus/COVID-19? No / Unsure 06/03/2022 10:34 AM CDT documented as of this encounter Plan of Treatment Upcoming Encounters Date Type Department Care Team (Latest Contact Info) Description 06/07/2025 5:00 PM CDT Hospital Encounter [facility]ventional [place] [address] [id number] Elizabeth Ryder MD Three [address] [address] 06/07/2025 5:00 PM CDT - 06/07/2025 5:20 PM CDT Surgery [facility] [place]ventional [place] [address] [id number] Elizabeth Ryder MD Three [facility] [address] [place] [address] INJECTION TRIGGER POINT-cervivcal/th oracic 06/11/2025 2:40 PM CDT Office Visit [facility] Medical Group Orthopedic & Sports Medicine - [place] [address] [place], [place] 1529[address] Reynaldo Bunch MD [address] [place] [address] 07/13/2025 9:00 AM CDT Hospital Encounter [facility] Inter[facility] [place] [address] [id number] Elizabeth Ryder MD Three [facility] [address] [place] [address] 07/13/2025 9:00 AM CDT - 07/13/2025 9:20 AM CDT Surgery [facility] Interventional [facility] [place] [address] [id number] Elizabeth Ryder MD Three [facility] [address] [place] [address] INJECTION EPIDURAL STEROID [id number] 07/13/2025 11:00 AM CDT Office Visit [facility] Medical [facility] Multispecialty Care - Health system [address] [facility], [address] [place] [address] Esau Hoff MD 3 [facility] [address] [place] [address] 09/13/2025 7:40 AM MANAGER TECHNICAL SERVICES Office Visit [facility] Medical Group Family & Internal Medicine - [address] [address] Kylee Villanueva MD [address] [place] [address] [place] [address] Scheduled Procedures Name Priority Associated Diagnoses Date/Ti me INJECTION TRIGGER POINT Myofascial pain 06/07/2025 5:00 PM CDT INJECTION EPIDURAL STEROID CERVICAL Cervical radiculopathy 07/13/2025 9:00 AM CDT documented as of this encounter Visit Diagnoses Not on filedocumented in this encounter Additional Health Concerns Infection Onset Date Last Indicated Resolved Time COVID-19 Rule Out 12/13/2023 12/13/2023 12/13/2023 8:54 AM MANAGER TECHNICAL SERVICES COVID-19 Rule Out 08/30/2024 08/30/2024 08/30/2024 8:14 AM MANAGER TECHNICAL SERVICES COVID-19 Rule Out 11/03/2024 11/03/2024 11/03/2024 10:48 AM MANAGER TECHNICAL SERVICES documented as of this encounter Care Teams Cabinet Abrasive Sandblaster Relationship Specialty [place] [address] [place] [address] PCP - General PHYSICIAN SUPERVISOR PASTRY 02/03/21 06/06/23 [place] [address] [place] [address] PCP - General FAMILY PRACTICE 06/07/23 [place] [address] [place] [address] NEUROLOGICAL SURGERY 11/24/21 documented as of this encounter
--- OUTSIDE RECORDS SUMMARY | 2025-05-30 00:42 | XMS_ITS | Encounter Summary ---
Author Organization [facility] Address [address] [place] [address] Care Team Providers Care General Internal Medicine Doctor Name Role Phone Alberto Avendano MD Unavailable [phone] Kylee Villanueva MD Primary Care Provider [phone] Encounter Details Date Type Department Care Team (Late st Contact Info) Description 04/18/2025 [employer] TVt Message Enc [facility] Medical Group Orthopedic & Sports Medicine - [place] [address] [place] [address] [phone] Reynaldo Bunch MD [address] [place], [place] 329[address] 388- MRI Results Social History Tobacco Use Types Packs/Day Years Used Date Smoking Tobacco: Never Smokeless Tobacco: Never Comments:NON SMOKER Alcohol Use Standard Drinks/Week Comments Never 3.3 (1 standard drink = 0.6 oz [...] Sex Assigned at Female 11/14/2024 2:54 PM PARTITION NOTCHER Legal Sex Female 11:06 AM CDT Gender Identity Female 05/11/2025 1:56 PM CDT Sexual Orientation Not on file documented as of this encounter Plan of Treatment Upcoming Encounters Date Type Department Care Team (Latest Contact Info) Description 06/07/2025 5:00 PM CDT Hospital Encounter [facility] Interventional [place] [address] [id number] Elizabeth Ryder MD Three [address] [address] 06/07/2025 5:00 PM CDT - 06/07/2025 5:20 PM CDT Surgery [facility] Interventional [place] [address] [id number] Elizabeth Ryder MD Three [address] [address] INJECTION TRIGGER POINT-cervivcal/th oracic 06/11/2025 2:40 PM CDT Office Visit [facility] Medical Group Orthopedic & Sports Medicine - [place] [address] [place] [address] Reynaldo Bunch MD [address] [place] [address] 07/13/2025 9:00 AM CDT Hospital Encounter [facility] Interventional [place] [address] [id number] Elizabeth Ryder MD Three [address] [address] 07/13/2025 9:00 AM CDT - 07/13/2025 9:20 AM CDT Surgery [facility] Interventional Pain [place] [address] [id number] Elizabeth Ryder MD Three [facility] [address] [place] [address] INJECTION EPIDURAL STEROID [id number] 07/13/2025 11:00 AM CDT Office Visit [facility] Multispecialty Care - [facility] 3 [facility] [address] [place] [address] Esau Hoff MD 3 [facility] [address] [place] [address] 09/13/2025 7:40 AM PARTITION NOTCHER Office Visit [facility] Medical [facility] Family & Internal Medicine - [address] [address] Kylee Villanueva MD [address] [place] [address] [place] [address] [phone] Scheduled Procedures Name Priority Associated Diagnoses Date/Ti [...] Total Score: 2 12/11/19 25 1:50 PM PARTITION NOTCHER documented as of this encounter Care Teams General Internal Medicine Doctor Relationship Specialty Start [place] [address] [facility] [place] [address] PCP - General FAMILY PRACTICE 06/07/23 Alberto Avendano MD NEUROLOGICAL SURGERY 11/24/21 documented as of this encounter
--- OUTSIDE RECORDS SUMMARY | 2025-05-30 00:42 | XMS_ITS | Encounter Summary ---
Author Organization [facility] Address [facility] [place] [address] Care Team Providers Care Dental Technician Apprentice Name Role Phone Viv Hamm Primary Care Provider [phone] Alberto Avendano MD Unavailable [phone] Kylee Villanueva MD Primary Care Provider [phone] Encounter Details Date Type Department Care Team (Latest Contact Info) Description 09/10/2022 Symetricahart Message Enc [facility] Medical Group Family & Internal Medicine [facility] [address] [place] [address] Viv Hamm [place] [id number] [place] [address] Report from Neurosurgeon Social History Tobacco Use Types [...] Sex Assigned at Female 11/14/2024 2:54 PM ACETALDEHYDE CONVERTER OPERATOR Legal Sex Female 11:06 AM CDT Gender Identity Female 05/11/2025 1:56 PM CDT Sexual Orientation Not on file COVID-19 Exposure Response Date Recorded In the last 10 days, have yo u been in contact with someone who was confirmed or suspected to have Coronavirus/COVID-19? No / Unsure 09/07/2022 3:39 PM ACETALDEHYDE CONVERTER OPERATOR documented as of this encounter Plan of Treatment Upcoming Encounters Date Type Department Care Team (Latest Contact Info) Description 06/07/2025 5:00 PM CDT Hospital Encounter [facility] Interventional [place] [address] [id number] Elizabeth Ryder MD Three [address] [address] 06/07/2025 5:00 PM CDT - 06/07/2025 5:20 PM CDT Surgery [facility] [place]ventional [place] [address] [id number] Elizabeth Ryder MD Three [address] [address] INJECTION TRIGGER POINT-cervivcal/th oracic 06/11/2025 2:40 PM CDT Office Visit [facility] Medical Group Orthopedic & Sports Medicine - [place] [address] [place], [place] [phone] Reynaldo Bunch MD [address] [place] [address] 07/13/2025 9:00 AM CDT Hospital Encounter [facility] Interventional Pain [place] [address] [id number] Elizabeth Ryder MD Three [facility] [address] [place] [address] 07/13/2025 9:00 AM CDT - 07/13/2025 9:20 AM CDT Surgery [facility] Interventional Pain [place] [address] [id number] Elizabeth Ryder MD Three [facility] [address] [place] [address] INJECTION EPIDURAL STEROID [id number] 07/13/2025 11:00 AM CDT Office Visit [facility] Medical [facility] Multispecialty Care - [facility] 3 [facility], [address] [place] [address] Esau Hoff MD 3 [facility] [address] [place] [address] 09/13/2025 7:40 AM ACETALDEHYDE CONVERTER OPERATOR Office Visit [facility] Medical Group Family & Internal Medicine - [address] [address] Kylee Villanueva MD [address] [place] [address] [place] [address] Scheduled Procedures Name Priority Associated Diagnoses Date/Ti me INJECTION TRIGGER POINT Myofascial pain 06/07/2025 5:00 PM CDT INJECTION EPIDURAL STEROID CERVICAL Cervical radiculopathy 07/13/2025 9:00 AM CDT documented as of this encounter Visit Diagnoses Not on filedocumented in this encounter Additional Health Concerns Infection Onset Date Last Indicated Resolved Time COVID-19 Rule Out 12/13/2023 12/13/2023 12/13/2023 8:54 AM ACETALDEHYDE CONVERTER OPERATOR COVID-19 Rule Out 08/30/2024 08/30/2024 08/30/2024 8:14 AM ACETALDEHYDE CONVERTER OPERATOR COVID-19 Rule Out 11/03/2024 11/03/2024 11/03/2024 10:48 AM ACETALDEHYDE CONVERTER OPERATOR documented as of this encounter Care Teams Dental Technician Apprentice Relationship Specialty [place] [address] [place] [address] PCP - General PHYSICIAN SEED PACKER 02/03/21 06/06/23 [place] [address] [address] [place] [address] PCP - General FAMILY PRACTICE 06/07/23 [place] [address] [place] [address] NEUROLOGICAL SURGERY 11/24/21 documented as of this encounter
--- OUTSIDE RECORDS SUMMARY | 2025-05-30 00:42 | XMS_ITS | Encounter Summary ---
Author Organization [facility] Address [address] [place] [address] Care Team Providers Care Photographic Laboratory Supervisor Name Role Phone Alberto Avendano MD Unavailable [phone] Kylee Villanueva MD Primary Care Provider [phone] Encounter Details Date Type Department Care Team (Late st Contact Info) Description 05/15/2025 [employer] Keyst Message Enc [facility] Medical Group Orthopedic & Sports Medicine - [place] [address] [place] [address] [phone] Reynaldo Bunch MD [address] [place] [address] Injections Social History Tobacco Use Types Packs/Day Years [...] Sex Assigned at Female 11/14/2024 2:54 PM PEARL RESTORER Legal Sex Female 11:06 AM CDT Gender Identity Female 05/11/2025 1:56 PM CDT Sexual Orientation Not on file documented as of this encounter Plan of Treatment Upcoming Encounters Date Type Department Care Team (Latest Contact Info) Description 06/07/2025 5:00 PM CDT Hospital Encounter [facility] Interventional [place] [address] [id number] Elizabeth Ryder MD Three [address] [address] 06/07/2025 5:00 PM CDT - 06/07/2025 5:20 PM CDT Surgery [facility] Interventional [place] [address] [id number] Elizaebth Ryder MD Three [address] [address] INJECTION TRIGGER POINT-cervivcal/th oracic 06/11/2025 2:40 PM CDT Office Visit [facility] Medical Group Orthopedic & Sports Medicine - [place] [address] [place] [address] Reynaldo Bunch MD [address] [place] [address] 07/13/2025 9:00 AM CDT Hospital Encounter [facility] Interventional [place] [address] [id number] Elizabeth Ryder MD Three [address] [address] 07/13/2025 9:00 AM CDT - 07/13/2025 9:20 AM CDT Surgery [facility] Interventional [place] [address] [id number] Elizabeth Ryder MD Three [facility] [address] [place] [address] INJECTION EPIDURAL STEROID [id number] 07/13/2025 11:00 AM CDT Office Visit [facility] Multispecialty Care - [facility] 3 [facility] [address] [place] [address] Esau Hoff MD 3 [facility] [address] [place] [address] 09/13/2025 7:40 AM PEARL RESTORER Office Visit [facility] Medical [facility] Family & Internal Medicine - [address] [address] Kylee Villanueva MD [address] [place] [address] [place] [address] [id number] Scheduled Procedures Name Priority Associated Diagnoses Date/Ti [...] Total Score: 2 12/11/19 25 1:50 PM PEARL RESTORER documented as of this encounter Care Teams Photographic Laboratory Supervisor Relationship Specialty Start [place] [address] [facility] [address] [place] [address] PCP - General FAMILY PRACTICE 06/07/23 Alberto Avendano MD NEUROLOGICAL SURGERY 11/24/21 documented as of this encounter
--- OUTSIDE RECORDS SUMMARY | 2025-05-30 00:42 | XMS_ITS | Encounter Summary ---
Author Organization [facility] Address [address] [place] [address] Care Team Providers Care Roll Up Helper Name Role Phone Alberto Avendano MD Unavailable [phone] Kylee Villanueva MD Primary Care Provider [phone] Encounter Details Date Type Department Care Team (Late st Contact Info) Description 03/01/2025 Lemon Message [facility] Interventional [place] [address] [id number] [employer] Provider Ref Social History Tobacco Use Types Packs/Day Years [...] at Female 11/14/2024 2:54 PM DIRECTOR OF FINANCIAL REPORTING Legal Sex Female 11:06 AM CDT Gender Identity Female 05/11/2025 1:56 PM CDT Sexual Orientation Not on file documented as of this encounter Plan of Treatment Upcoming Encounters Date Type Department Care Team (Latest Contact Info) Description 06/07/2025 5:00 PM CDT Hospital Encounter [facility] Interventional [place] [address] [id number] Elizabeth Ryder MD Three [address] [address] 06/07/2025 5:00 PM CDT - 06/07/2025 5:20 PM CDT Surgery [facility] Interventional [place] [address] [id number] Elizabeth Ryder MD Three [address] [address] INJECTION TRIGGER POINT-cervivcal/th oracic 06/11/2025 2:40 PM CDT Office Visit [facility] Medical Group Orthopedic & Sports Medicine - [place] [address] [place] [address] Reynaldo Bunch MD [address] [place] [address] 07/13/2025 9:00 AM CDT Hospital Encounter [facility] Interventional [place] [address] [id number] Elizabeth Ryder MD Three [address] [address] 07/13/2025 9:00 AM CDT - 07/13/2025 9:20 AM CDT Surgery [facility] Interventional Pain [place] [address] [id number] Elizabeth Ryder MD Three [facility] [address] [place] [address] INJECTION EPIDURAL STEROID [id number] 07/13/2025 11:00 AM CDT Office Visit [facility] Multispecialty Care - [facility] 3 [facility] [address] [place] [address] Esau Hoff MD 3 [facility] [address] [place] [address] 09/13/2025 7:40 AM DIRECTOR OF FINANCIAL REPORTING Office Visit [facility] Medical [facility] Family & Internal Medicine [address] [phone] [place] [address] [facility] [address] [place] [address] Scheduled Procedures Name Priority Associated Diagnoses Date/Ti me INJECTION TRIGGER POINT Myofascial pain 06/07/2025 5:00 PM CDT INJECTION EPIDURAL STEROID CERVICAL Cervical radiculopathy 07/13/2025 9:00 AM CDT documented as of this encounter Visit Diagnoses Not on filedocumented in this encounter Additional Health Concerns Assessment Noted Time PHQ-9 Depression Total Score: 2 12/11/19 25 1:50 PM DIRECTOR OF FINANCIAL REPORTING documented as of this encounter Care Teams Roll Up Helper Relationship Specialty Start Date End Date Kylee Villanueva MD [address] [place] [address]. [address] [place] [address] PCP - General FAMILY PRACTICE 06/07/23 Alberto Avendano MD NEUROLOGICAL SURGERY 11/24/21 documented as of this encounter
--- OUTSIDE RECORDS SUMMARY | 2025-05-30 00:42 | XMS_ITS | Encounter Summary ---
Author Organization [facility] Address [facility] [place] [address] Care Team Providers Care Visual Aid Expert Name Role Phone Viv Hamm Primary Care Provider [phone] Alberto Avendano MD Unavailable [phone] Kylee Villanueva MD Primary Care Provider [phone] Encounter Details Date Type Department Care Team (Late st Contact Info) Description 09/09/2022 Econic Technologieshart Message Enc [facility] Medical Group Family & Internal Medicine [facility] [address] [place] [address] Viv Hamm [place] [address] [place] [address] Life Insurance Request Social History Tobacco Use Types Packs/Day Years [...] Sex Assigned at Female 11/14/2024 2:54 PM MONTESSORI TEACHER Legal Sex Female 11:06 AM CDT Gender Identity Female 05/11/2025 1:56 PM CDT Sexual Orientation Not on file COVID-19 Exposure Response Date Recorded In the last 10 days, have yo u been in contact with someone who was confirmed or suspected to have Coronavirus/COVID-19? No / Unsure 09/07/2022 3:39 PM MONTESSORI TEACHER documented as of this encounter Plan of Treatment Upcoming Encounters Date Type Department Care Team (Latest Contact Info) Description 06/07/2025 5:00 PM CDT Hospital Encounter [facility] Interventional [place] [address] [id number] Elizabeth Ryder MD Three [address] [address] 06/07/2025 5:00 PM CDT - 06/07/2025 5:20 PM CDT Surgery [facility] Interventional [place] [address] [id number] Elizabeth Ryder MD [address] [address] INJECTION TRIGGER POINT-cervivcal/th oracic 06/11/2025 2:40 PM CDT Office Visit [facility] Medical Group Orthopedic & Sports Medicine - [place] [address] [place] [address] Reynaldo Bunch MD [address] [place] [address] 07/13/2025 9:00 AM CDT Hospital Encounter [facility] Interventional [place] [address] [id number] Elizabeth Ryder MD Three [facility] [address] [place] [address] 07/13/2025 9:00 AM CDT - 07/13/2025 9:20 AM CDT Surgery [facility] Interventional Pain [place] [address] [id number] Elizabeth Ryder MD Three [facility] [address] [place] [address] INJECTION EPIDURAL STEROID [id number] 07/13/2025 11:00 AM CDT Office Visit [facility] Medical [facility] Multispecialty Care - [facility] 3 [facility], [address] [place] [address] Esau Hoff MD 3 [facility] [address] [place] [address] 09/13/2025 7:40 AM MONTESSORI TEACHER Office Visit [facility] Medical Group Family & Internal Medicine - [address] [address] Kylee Villanueva MD [address] [place] [address] [place] [address] Scheduled Procedures Name Priority Associated Diagnoses Date/Ti me INJECTION TRIGGER POINT Myofascial pain 06/07/2025 5:00 PM CDT INJECTION EPIDURAL STEROID CERVICAL Cervical radiculopathy 07/13/2025 9:00 AM CDT documented as of this encounter Visit Diagnoses Not on filedocumented in this encounter Additional Health Concerns Infection Onset Date Last Indicated Resolved Time COVID-19 Rule Out 12/13/2023 12/13/2023 12/13/2023 8:54 AM MONTESSORI TEACHER COVID-19 Rule Out 08/30/2024 08/30/2024 08/30/2024 8:14 AM MONTESSORI TEACHER COVID-19 Rule Out 11/03/2024 11/03/2024 11/03/2024 10:48 AM MONTESSORI TEACHER documented as of this encounter Care Teams Visual Aid Expert Relationship Specialty [place] [address] [place] [address] PCP - General PHYSICIAN TEST ENGINEERING TECHNICIAN 02/03/21 06/06/23 [place] [address] [address] [place] [address] PCP - General FAMILY PRACTICE 06/07/23 [place] [address] [place] [address] NEUROLOGICAL SURGERY 11/24/21 documented as of this encounter
--- OUTSIDE RECORDS SUMMARY | 2025-05-30 00:42 | XMS_ITS | Encounter Summary ---
Author Organization [facility] Address [address] [place] [address] Care Team Providers Care Business Proposal Rep Name Role Phone Alberto Avendano MD Unavailable [phone] Kylee Villanueva MD Primary Care Provider [phone] Encounter Details Date Type Department Care Team (Late st Contact Info) Description 03/26/2025 [employer] Message Enc [facility] Orthopedic & Sports Medicine - [place] [address] [place] [address] Reynaldo Bunch MD [address] [place] [address] MRI Social History Tobacco Use Types Packs/Day [...] Sex Assigned at Female 11/14/2024 2:54 PM SLITTER AND REWINDER Legal Sex Female 11:06 AM CDT Gender Identity Female 05/11/2025 1:56 PM CDT Sexual Orientation Not on file documented as of this encounter Functional Status * Calculated C-SSRS Risk Score (Lifetime/Recent) Answer Date of Assessment Author Status No Risk Indicated 03/27/2025 11:08 AM CDT India Vázquez RN Active * [place] Suicide Severity Rating Scale (Screener/Recent Self-Report) Question Answer Date of Assessment Author Status 1. Wish to be (Past 1 Month) No 03/27/2025 11:08 AM CDT Allyson Vázquez RN A ctive 2. Non-Specific Active Suicidal Thoughts (Past 1 Month) No 03/27/2025 11:08 AM LENORAT Allyson Vázquez RN A ctive 6. Suicidal Behavior (Lifetime) No 03/27/2025 11:08 AM CDT Allyson Vázquez RN A ctive documented as of this encounter Plan of Treatment Upcoming Encounters Date Type Department Care Team (Latest Contact Info) Description 06/07/2025 5:00 PM CDT Hospital Encounter [facility] Interventional [place] [address] [id number] Elizabeth Ryder MD [address] [address] 06/07/2025 5:00 PM CDT - 06/07/2025 5:20 PM CDT Surgery [facility] Interventional [place] [address] [id number] Elizabeth Ryder MD [address] [address] INJECTION TRIGGER POINT-cervivcal/th oracic 06/11/2025 2:40 PM CDT Office Visit [facility] Orthopedic & Sports Medicine - [place] [address] [place] [address] Reynaldo Bunch MD [address] [place] [address] 07/13/2025 9:00 AM CDT Hospital Encounter [facility] Interventional [place] [address] [id number] Elizabeth Ryder MD Three [facility] [address] [place] [address] 07/13/2025 9:00 AM CDT - 07/13/2025 9:20 AM CDT Surgery [facility] Interventional Pain [place] [address] [id number] Elizabeth Ryder MD Three [facility] [address] [place] [address] INJECTION EPIDURAL STEROID [id number] 07/13/2025 11:00 AM CDT Office Visit [facility] Multispecialty Care - [facility] 3 [facility] [address] [place] [address] Esau Hoff MD 3 [facility] [address] [place] [address] 09/13/2025 7:40 AM SLITTER AND REWINDER Office Visit [facility] Medical Group Family & Internal Medicine - [address] [address] Kylee Villanueva MD [address] [place] [address]. [address] [place] [address] Scheduled Procedures Name Priority Associated Diagnoses Date/Ti me INJECTION TRIGGER POINT Myofascial pain 06/07/2025 5:00 PM CDT INJECTION EPIDURAL STEROID CERVICAL Cervical radiculopathy 07/13/2025 9:00 AM CDT documented as of this encounter Visit Diagnoses Not on filedocumented in this encounter Additional Health Concerns Assessment Noted Time PHQ-9 Depression Total Score: 2 12/11/19 25 1:50 PM SLITTER AND REWINDER documented as of this encounter Care Teams Business Proposal Rep Relationship Specialty Start [place] [address] [place] [address] PCP - General FAMILY PRACTICE 06/07/23 Alberto Avendano MD NEUROLOGICAL SURGERY 11/24/21 documented as of this encounter
[2025-05-30 04:50] VITALS: BP 135/65; PULSE 85; RESP 18; TEMP 36.6; O2SAT 100
--- OUTSIDE RECORDS SUMMARY | 2025-05-30 04:59 | XMS_ITS | Encounter Summary ---
Author Organization [facility] Address [facility] [place] [address] Care Team Providers Care Foam Machine Operator Name Role Phone Viv Hamm Primary Care Provider [phone] Alberto Avendano MD Unavailable [phone] Kylee Villanueva MD Primary Care Provider [phone] Encounter Details Date Type Department Care Team (Late st Contact Info) Description 12/10/[address] [facility] General Surgery [address], [address] [place] [address] Tracy Godoy MD [address] [address] [facility] [employer] Social History Tobacco Use Types Packs/Day [...] Sex Assigned at Female 11/14/2024 2:54 PM GLASS BULB SILVERER Legal Sex Female 11:06 AM CDT Gender Identity Female 05/11/2025 1:56 PM CDT Sexual Orientation Not on file COVID-19 Exposure Response Date Recorded In the last month, have you been in contact with someone who was confirmed or suspected to have Coronavirus / COVID-19? No / Unsure 11/10/2021 12:11 PM GLASS BULB SILVERER documented as of this encounter Progress Notes * Artemio Novak MA - 12/10/2021 1:23 PM CST Sent message to the patient stating that Dr. Godoy doesn't know what that is. S BULB SILVERER documented in this encounter Plan of Treatment Upcoming Encounters Date Type Department Care Team (Latest Contact Info) Description 06/07/2025 5:00 PM CDT Hospital Encounter [facility] Interventional [place] [address] [id number] Elizabeth Ryder MD Three [facility] [address] [place] [address] 06/07/2025 5:00 PM CDT - 06/07/2025 5:20 PM CDT Surgery [facility] Interventional [place] [address] [id number] Elizabeth Ryder MD Three [facility] [address] [place] [address] INJECTION TRIGGER POINT-cervivcal/th oracic 06/11/2025 2:40 PM CDT Office Visit [facility] Orthopedic & Sports Medicine - [place] [address] [place] [address] Reynaldo Bunch MD [facility] [place] [address] 07/13/2025 9:00 AM CDT Hospital Encounter [facility] Interventional [place] [address] [id number] Elizabeth Ryder MD Three [facility] Suite [facility] [place] [address] 07/13/2025 9:00 AM CDT - 07/13/2025 9:20 AM CDT Surgery [facility] [place] [address] [id number] Elizabeth Ryder MD Three [facility] [address] [place] [address] INJECTION EPIDURAL STEROID [id number] 07/13/2025 11:00 AM CDT Office Visit [facility] Multispecialty Care - [address], [address] [place] [address] Esau Hoff MD [address] [place] [address] [place] [address] 09/13/2025 7:40 AM GLASS BULB SILVERER Office Visit [facility] Family & Internal Medicine - [address] [address] Kylee Villanueva MD [address] [place] [address] [place] [id number] Scheduled Procedures Name Priority Associated Diagnoses Date/Ti me INJECTION TRIGGER POINT Myofascial pain 06/07/2025 5:00 PM CDT INJECTION EPIDURAL STEROID CERVICAL Cervical radiculopathy 07/13/2025 9:00 AM CDT documented as of this encounter Visit Diagnoses Not on filedocumented in this encounter Additional Health Concerns Infection Onset Date Last Indicated Resolved Time COVID-19 Rule Out 12/13/2023 12/13/2023 12/13/2023 8:54 AM GLASS BULB SILVERER COVID-19 Rule Out 08/30/2024 08/30/2024 08/30/2024 8:14 AM GLASS BULB SILVERER COVID-19 Rule Out 11/03/2024 11/03/2024 11/03/2024 10:48 AM GLASS BULB SILVERER documented as of this encounter Care Teams Foam Machine Operator Relationship Specialty [place] [address] [place] [address] PCP - General PHYSICIAN NEW ACCOUNTS REPRESENTATIVE 02/03/21 06/06/23 [place] [address] [facility] [address] PCP - General FAMILY PRACTICE 06/07/23 [place] [address] [place] [address] NEUROLOGICAL SURGERY 11/24/21 documented as of this encounter
--- OUTSIDE RECORDS SUMMARY | 2025-05-30 04:59 | XMS_ITS | Encounter Summary ---
Author Organization [facility] Address [address] [place] [address] Care Team Providers Care Drop Tester Name Role Phone Alberto Avendano MD Unavailable [phone] Elgin Villanueva MD Primary Care Provider [phone] Reason for Referral * Imaging (Routine) - Closed Specialty Diagnoses / Procedures Referred By Contac t Referred To Contact RADIOLOGY Diagnoses Numbness and tingling of leg Procedures MRI [place] [address] [employer] [place] [address] Phone: tel: fax: Referral ID Status Reason Start Date Expiration Date Visits Re quested Visits Authorized [id number] Closed 09/05/2023 03/18/2024 1 1 Encounter Details Date Type Department Care Team (Late st Contact Info) Description 08/25/2023 MyChart Message Enc [facility] Medical Group Family & Internal Medicine [address] [address] [place] [address] [employer] [place] [address] Thoracic MRI Social History Tobacco Use [...] Sex Assigned at Female 11/14/2024 2:54 PM FRONT END ARCHITECT Legal Sex Female 11:06 AM CDT Gender Identity Female 05/11/2025 1:56 PM CDT Sexual Orientation Not on file documented as of this encounter Progress Notes * Josselin Ortiz RN - 08/25/2023 11:22 AM CDT Please advise documented in this encounter Plan of Treatment Upcoming Encounters Date Type Department Care Team (Latest Contact Info) Description 06/07/2025 5:00 PM CDT Hospital Encounter [facility] [place] [address] [id number] Elizabeth Ryder MD Three [address] [address] 06/07/2025 5:00 PM CDT - 06/07/2025 5:20 PM CDT Surgery [facility] [place] [address] [id number] Elizabeth Ryder MD [address] [address] INJECTION TRIGGER POINT-cervivcal/th oracic 06/11/2025 2:40 PM CDT Office Visit [facility] Orthopedic & Sports Medicine - [place] [address] [place] [address] Reynaldo Bunch MD [address] [place] [address] 07/13/2025 9:00 AM CDT Hospital Encounter [facility] Interventional [place] [address] [id number] Elizabeth Ryder MD Three [facility] [address] [place] [address] 07/13/2025 9:00 AM CDT - 07/13/2025 9:20 AM CDT Surgery [facility] Interventional Pain [place] [address] [id number] Elizabeth Ryder MD Three [facility] [address] [place] [address] INJECTION EPIDURAL STEROID [id number] 07/13/2025 11:00 AM CDT Office Visit [facility] Multispecialty Care - [facility] 3 [facility] [address] [place] [address] Esau Hoff MD 3 [facility] [address] [place] [address] 09/13/2025 7:40 AM FRONT END ARCHITECT Office Visit [facility] Family & Internal Medicine - [address] [place] [address] [place] [address] [facility]. [address] [place] [address] Scheduled Procedures Name Priority Associated Diagnoses Date/Ti me INJECTION TRIGGER POINT Myofascial pain 06/07/2025 5:00 PM CDT INJECTION EPIDURAL STEROID CERVICAL Cervical radiculopathy 07/13/2025 9:00 AM CDT documented as of this encounter Results * MRI THOR SPINE WO CON (10/19/2023 10:57 AM FRONT END ARCHITECT) Anatomical Region Laterality Modality Spine Magnetic Resonan ce 10/20/2023 7:06 PM FRONT END ARCHITECT Impressions 10/20/2023 7:09 PM FRONT END ARCHITECT IMPRESSION: 1. Normal appearance of the thoracic spine. 2. Partially visualized moderate cervical spondylosis, better characterized on the prior MRI cervical spine examination from 02/24/2023. Mild partially visualized lumbar spondylosis, better characterized on the prior MRI lumbar spine examination from 03/13/2023 Ordered By: ELGIN VILLANUEVA Interpreted By: Lionel Costa MD, 10/20/2023 7:06 PM Narrative 10/20/2023 7:09 PM FRONT END ARCHITECT Examination: MRI THOR SPINE WO CON, 10/20/2023 [...] Rule Out 12/13/2023 12/13/2023 12/13/2023 8:54 AM FRONT END ARCHITECT COVID-19 Rule Out 08/30/2024 08/30/2024 08/30/2024 8:14 AM FRONT END ARCHITECT COVID-19 Rule Out 11/03/2024 11/03/2024 11/03/2024 10:48 AM FRONT END ARCHITECT documented as of this encounter Care Teams Drop Tester Relationship Specialty [place] [address] [facility] [place] [address] PCP - General FAMILY PRACTICE 06/07/23 Alberto Avendano MD NEUROLOGICAL SURGERY 11/24/21 documented as of this encounter
--- OUTSIDE RECORDS SUMMARY | 2025-05-30 04:59 | XMS_ITS | Encounter Summary ---
Author Organization [facility] Address [facility] [place] [address] Care Team Providers Care Hook Up Driver Name Role Phone Viv Hamm Primary Care Provider [phone] Alberto Avendano MD Unavailable [phone] Kylee Villanueva MD Primary Care Provider [phone] Encounter Details Date Type Department Care Team (Late st Contact Info) Description 12/02/2021 MyChart Message Enc [facility] Medical Group Multispecialty Care - [facility] [address] [facility] [address] [place] [address] Shane Noble MD [address] [place] [address] Medical Files Social History Tobacco Use Types [...] Sex Assigned at Female 11/14/2024 2:54 PM REVIVAL CLERK Legal Sex Female 11:06 AM CDT Gender Identity Female 05/11/2025 1:56 PM CDT Sexual Orientation Not on file COVID-19 Exposure Response Date Recorded In the last month, have you been in contact with someone who was confirmed or suspected to have Coronavirus / COVID-19? No / Unsure 11/10/2021 12:11 PM REVIVAL CLERK documented as of this encounter Plan of Treatment Upcoming Encounters Date Type Department Care Team (Latest Contact Info) Description 06/07/2025 5:00 PM CDT Hospital Encounter [facility] Interventional [place] [address] [id number] Elizabeth Ryder MD Three [address] [address] 06/07/2025 5:00 PM CDT - 06/07/2025 5:20 PM CDT Surgery [facility] [place] [address] [id number] Elizabeth Ryder MD Three [address] [address] INJECTION TRIGGER POINT-cervivcal/th oracic 06/11/2025 2:40 PM CDT Office Visit [facility] Medical Group Orthopedic & Sports Medicine - [place] [address] [place] [address] Reynaldo Bunch MD [address] [place] [address] 07/13/2025 9:00 AM CDT Hospital Encounter [facility] [place] [address] [id number] Elizabeth Ryder MD Three [facility] [address] [place] [address] 07/13/2025 9:00 AM CDT - 07/13/2025 9:20 AM CDT Surgery [facility] Interventional [place] [address] [id number] Elizabeth Ryder MD Three [facility] [address] [place] [address] INJECTION EPIDURAL STEROID [id number] 07/13/2025 11:00 AM CDT Office Visit [facility] Multispecialty Care - [facility] 3 [facility], [address] [place] [address] Esau Hoff MD [address] [address] 09/13/2025 7:40 AM REVIVAL CLERK Office Visit [facility] Medical [facility] Family & Internal Medicine - [address] [address] Kylee Villanueva MD [address] [place] [address] [place] [address] Scheduled Procedures Name Priority Associated Diagnoses Date/Ti me INJECTION TRIGGER POINT Myofascial pain 06/07/2025 5:00 PM CDT INJECTION EPIDURAL STEROID CERVICAL Cervical radiculopathy 07/13/2025 9:00 AM CDT documented as of this encounter Visit Diagnoses Not on filedocumented in this encounter Additional Health Concerns Infection Onset Date Last Indicated Resolved Time COVID-19 Rule Out 12/13/2023 12/13/2023 12/13/2023 8:54 AM REVIVAL CLERK COVID-19 Rule Out 08/30/2024 08/30/2024 08/30/2024 8:14 AM REVIVAL CLERK COVID-19 Rule Out 11/03/2024 11/03/2024 11/03/2024 10:48 AM REVIVAL CLERK documented as of this encounter Care Teams Hook Up Driver Relationship Specialty [place] [address] [place] [address] PCP - General PHYSICIAN COLLAR CUTTER 02/03/21 06/06/23 [place] [address] [address] [place] [address] PCP - General FAMILY PRACTICE 06/07/23 [place] [address] [place] [address] NEUROLOGICAL SURGERY 11/24/21 documented as of this encounter
--- OUTSIDE RECORDS SUMMARY | 2025-05-30 04:59 | XMS_ITS | Encounter Summary ---
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 [address] [place] [address] PCP - General Family Medicine 07/12/23 Shane Noble MD [address] [address] Fellow Neurology 08/17/22 Reynaldo Bunch MD [address] [place] [address] Orthopedic Surgery 08/10/23 documented as of this encounter
--- OUTSIDE RECORDS SUMMARY | 2025-05-30 05:00 | XMS_ITS | Encounter Summary ---
Author Organization [facility] Address [address] [place] [address] Care Team Providers Care Racecourse Barrier Attendant Name Role Phone Alberto Avendano MD Unavailable [phone] Kylee Villanueva MD Primary Care Provider [phone] Encounter Details Date Type Department Care Team (Late st Contact Info) Description 07/21/2023 [employer] Message Enc [facility] Medical Group Family & Internal Medicine [address] [address] Kylee Villanueva MD [address] [place] [address]. [address] [place] [address] Blood Pressure Social History Tobacco [...] Sex Assigned at Female 11/14/2024 2:54 PM HOT PACKER Legal Sex Female 11:06 AM CDT Gender [...] [facility] Interventional [place] [address] [id number] Elizabeth Ryder MD Three [facility] [address] [place] [address] 06/07/2025 5:00 PM CDT - 06/07/2025 5:20 PM CDT Surgery [facility] Interventional [place] [address] [id number] Elizabeth Ryder MD [address] [address] INJECTION TRIGGER POINT-cervivcal/th oracic 06/11/2025 2:40 PM CDT Office Visit [facility] Medical Group Orthopedic & Sports Medicine - [place] [address] [place] [address] Reynaldo Bunch MD [address] [place] [address] 07/13/2025 9:00 AM CDT Hospital Encounter [facility] Interventional [place] [address] [id number] Elizabeth Ryder MD Three [facility] [address] [place] [address] 07/13/2025 9:00 AM CDT - 07/13/2025 9:20 AM CDT Surgery [facility] Interventional [place] [address] [id number] Elizabeth Ryder MD [facility] [address] [place] [address] INJECTION EPIDURAL STEROID [id number] 07/13/2025 11:00 AM CDT Office Visit [facility] Multispecialty Care - [address], [address] [place] [address] Esau Hoff MD [address] [place] [address] 09/13/2025 7:40 AM HOT PACKER Office Visit [facility] Medical Group Family & Internal Medicine - [address] [address] Kylee Villanueva MD [address] [place] [address] [place] [id number] Scheduled Procedures Name Priority Associated Diagnoses Date/Ti [...] Rule Out 12/13/2023 12/13/2023 12/13/2023 8:54 AM HOT PACKER COVID-19 Rule Out 08/30/2024 08/30/2024 08/30/2024 8:14 AM HOT PACKER COVID-19 Rule Out 11/03/2024 11/03/2024 11/03/2024 10:48 AM HOT PACKER documented as of this encounter Care Teams Racecourse Barrier Attendant Relationship Specialty Start [place] [address] [facility]. [address] [place] [address] PCP - General FAMILY PRACTICE 06/07/23 Alberto Avendano MD NEUROLOGICAL SURGERY 11/24/21 documented as of this encounter
--- OUTSIDE RECORDS SUMMARY | 2025-05-30 05:00 | XMS_ITS | Encounter Summary ---
Author Organization [facility] Address Critical access hospital[address] [place] [address] Care Team Providers Care Kraft Digester Operator Name Role Phone Viv Hamm Primary Care Provider [phone] Alberto Avendano MD Unavailable [phone] Kylee Villanueva MD Primary Care Provider [phone] Encounter Details Date Type Department Care Team (Latest Contact Info) Description 01/20/2023 MyChart Message Enc [facility] Medical Group Multispecialty Care - [facility] 3 [facility] [address] [place] [address] Esau Hoff MD [address] [facility] [address] [place] [address] Pulmonary Function Test Social History Tobacco Use [...] Sex Assigned at Female 11/14/2024 2:54 PM FARMER AND GRAZIER Legal Sex Female 11:06 AM CDT Gender [...] Description 06/07/2025 5:00 PM CDT Hospital Encounter [facility] Interventional [place] [address] [id number] Elizabeth Ryder MD Three [facility] [address] [place] [address] 06/07/2025 5:00 PM CDT - 06/07/2025 5:20 PM CDT Surgery [facility] [place]ventional [place] [address] [id number] Elizabeth Ryder MD Three [facility] [address] [place] [address] INJECTION TRIGGER POINT-cervivcal/th oracic 06/11/2025 2:40 PM CDT Office Visit [facility] Orthopedic & Sports Medicine - [place] [address] [place] [address] Reynaldo Bunch MD [address] [place] [address] 07/13/2025 9:00 AM CDT Hospital Encounter [facility] Interventional [place] [address] [id number] Elizabeth Ryder MD Three [facility] [address] [place] [address] 07/13/2025 9:00 AM CDT - 07/13/2025 9:20 AM CDT Surgery [facility] Interventional Pain [place] [address] [id number] Elizabeth Ryder MD Three [facility] [address] [place] [address] INJECTION EPIDURAL STEROID [id number] 07/13/2025 11:00 AM CDT Office Visit [facility] Multispecialty Care - [facility] 3 [facility], [address] [place] [address] Esau Hoff MD 3 [facility] [address] [place] [address] 09/13/2025 7:40 AM FARMER AND GRAZIER Office Visit [facility] Family & Internal Medicine [facility] [address] [place] [address] [place] [address] [facility] [address]. [address] [place] [address] Scheduled Procedures Name Priority Associated Diagnoses Date/Ti me INJECTION TRIGGER POINT Myofascial pain 06/07/2025 5:00 PM CDT INJECTION EPIDURAL STEROID CERVICAL Cervical radiculopathy 07/13/2025 9:00 AM CDT documented as of this encounter Visit Diagnoses Not on filedocumented in this encounter Additional Health Concerns Infection Onset Date Last Indicated Resolved Time COVID-19 Rule Out 12/13/2023 12/13/2023 12/13/2023 8:54 AM FARMER AND GRAZIER COVID-19 Rule Out 08/30/2024 08/30/2024 08/30/2024 8:14 AM FARMER AND GRAZIER COVID-19 Rule Out 11/03/2024 11/03/2024 11/03/2024 10:48 AM FARMER AND GRAZIER documented as of this encounter Care Teams Kraft Digester Operator Relationship Specialty [place] [address] [place] [address] PCP - General PHYSICIAN LIGHTING DIRECTOR 02/03/21 06/06/23 [place] [address] [facility] [address]. [address] [address] PCP - General FAMILY PRACTICE 06/07/23 [place] [address] [place] [address] NEUROLOGICAL SURGERY 11/24/21 documented as of this encounter
--- OUTSIDE RECORDS SUMMARY | 2025-05-30 05:00 | XMS_ITS | Encounter Summary ---
Author Organization [facility] Address [address] [place] [address] Care Team Providers Care Scientific Diver Name Role Phone Alberto Avendano MD Unavailable [phone] Kylee Villanueva MD Primary Care Provider [phone] Encounter Details Date Type Department Care Team (Late st Contact Info) Description 07/06/2023 Visonys Message Enc [facility] Interventional [place] [address] [id number] Concha Albert NP 3 [facility] [address] [place] [phone] [phone] (Work) RFA Nerve Ablation Social [...] Sex Assigned at Female 11/14/2024 2:54 PM AIRLINE OPERATIONS AGENT Legal Sex Female 11:06 AM CDT Gender Identity Female 05/11/2025 1:56 PM CDT Sexual Orientation Not on file documented as of this encounter Plan of Treatment Upcoming Encounters Date Type Department Care Team (Latest Contact Info) Description 06/07/2025 5:00 PM CDT Hospital Encounter [facility] Interventional [place] [address] [id number] Elizabeth Ryder MD [address] [address] 06/07/2025 5:00 PM CDT - 06/07/2025 5:20 PM CDT Surgery [facility] Interventional [place] [address] [id number] Elizabeth Ryder MD [address] [address] INJECTION TRIGGER POINT-cervivcal/th oracic 06/11/2025 2:40 PM CDT Office Visit [facility] Medical Group Orthopedic & Sports Medicine - [place] [address] [place] [address] Reynaldo Bunch MD [address] [place] [address] 07/13/2025 9:00 AM CDT Hospital Encounter [facility] Interventional [place] [address] [id number] Elizabeth Ryder MD [address] [place] [address] 07/13/2025 9:00 AM CDT - 07/13/2025 9:20 AM CDT Surgery [facility] Interventional [place] [address] [id number] Elizabeth Ryder MD Three [facility] [address] [place] [address] INJECTION EPIDURAL STEROID [id number] 07/13/2025 11:00 AM CDT Office Visit [facility] Medical [facility] Multispecialty Care - [facility] 3 [facility] [address] [place] [address] Esau Hoff MD 3 [facility] [address] [place] [address] 09/13/2025 7:40 AM AIRLINE OPERATIONS AGENT Office Visit [facility] Medical [facility] Family & Internal Medicine - [address] [place] [address] [address] Kylee Villanueva MD [address] [place] [address] [phone] Scheduled Procedures Name Priority Associated Diagnoses Date/Ti me INJECTION TRIGGER POINT Myofascial pain 06/07/2025 5:00 PM CDT INJECTION EPIDURAL STEROID CERVICAL Cervical radiculopathy 07/13/2025 9:00 AM CDT documented as of this encounter Visit Diagnoses Not on filedocumented in this encounter Additional Health Concerns Infection Onset Date Last Indicated Resolved Time COVID-19 Rule Out 12/13/2023 12/13/2023 12/13/2023 8:54 AM AIRLINE OPERATIONS AGENT COVID-19 Rule Out 08/30/2024 08/30/2024 08/30/2024 8:14 AM AIRLINE OPERATIONS AGENT COVID-19 Rule Out 11/03/2024 11/03/2024 11/03/2024 10:48 AM AIRLINE OPERATIONS AGENT documented as of this encounter Care Teams Scientific Diver Relationship Specialty Start [place] [address] [facility] [address] [place] [address] PCP - General FAMILY PRACTICE 06/07/23 Alberto Avendano MD NEUROLOGICAL SURGERY 11/24/21 documented as of this encounter
--- OUTSIDE RECORDS SUMMARY | 2025-05-30 05:00 | XMS_ITS | Encounter Summary ---
Author Organization [facility] Address [address] [place] [address] Care Team Providers Care Hand Tile Maker Name Role Phone Alberto Avendano MD Unavailable [phone] Kylee Villanueva MD Primary Care Provider [phone] Encounter Details Date Type Department Care Team (Late st Contact Info) Description 12/09/2023 Proteros biostructures Message Enc [facility] Medical Group Family & Internal Medicine [address] [address] [employer] Provider Mammogram result Social History Tobacco Use [...] Sex Assigned at Female 11/14/2024 2:54 PM INJECTION MOLD TOOLING TECHNICIAN Legal Sex Female 11:06 AM CDT Gender Identity Female 05/11/2025 1:56 PM CDT Sexual Orientation Not on file documented as of this encounter Plan of Treatment Upcoming Encounters Date Type Department Care Team (Latest Contact Info) Description 06/07/2025 5:00 PM CDT Hospital Encounter [facility] Interventional [place] [address] [id number] Elizabeth Ryder MD Three [address] [address] 06/07/2025 5:00 PM CDT - 06/07/2025 5:20 PM CDT Surgery [facility] Interventional [place] [address] [id number] Elizabeth Ryder MD Three [address] [address] INJECTION TRIGGER POINT-cervivcal/th oracic 06/11/2025 2:40 PM CDT Office Visit [facility] Medical Group Orthopedic & Sports Medicine - [place] [address] [place] [address] Reynaldo Bunch MD [address] [place] [address] 07/13/2025 9:00 AM CDT Hospital Encounter [facility] Interventional [place] [address] [id number] Elizabeth Ryder MD Three [address] [address] 07/13/2025 9:00 AM CDT - 07/13/2025 9:20 AM CDT Surgery [facility] Interventional Pain [place] [address] [id number] Elizabeth Ryder MD Three [facility] [address] [place] [address] INJECTION EPIDURAL STEROID [id number] 07/13/2025 11:00 AM CDT Office Visit [facility] Multispecialty Care - [facility] 3 [facility] [address] [place] [address] Esau Hoff MD 3 [facility] [address] [place] [address] 09/13/2025 7:40 AM INJECTION MOLD TOOLING TECHNICIAN Office Visit [facility] Medical [facility] Family & Internal Medicine [address] [address] Kylee Villanueva MD [address] [place] [address] [place] [address] Scheduled Procedures Name Priority Associated Diagnoses Date/Ti me INJECTION TRIGGER POINT Myofascial pain 06/07/2025 5:00 PM CDT INJECTION EPIDURAL STEROID CERVICAL Cervical radiculopathy 07/13/2025 9:00 AM CDT documented as of this encounter Visit Diagnoses Not on filedocumented in this encounter Additional Health Concerns Infection Onset Date Last Indicated Resolved Time COVID-19 Rule Out 12/13/2023 12/13/2023 12/13/2023 8:54 AM INJECTION MOLD TOOLING TECHNICIAN COVID-19 Rule Out 08/30/2024 08/30/2024 08/30/2024 8:14 AM INJECTION MOLD TOOLING TECHNICIAN COVID-19 Rule Out 11/03/2024 11/03/2024 11/03/2024 10:48 AM INJECTION MOLD TOOLING TECHNICIAN documented as of this encounter Care Teams Hand Tile Maker Relationship Specialty Start [place] [address] [address] [place] [address] PCP - General FAMILY PRACTICE 06/07/23 Alberto Avendano MD NEUROLOGICAL SURGERY 11/24/21 documented as of this encounter
--- OUTSIDE RECORDS SUMMARY | 2025-05-30 05:00 | XMS_ITS | Encounter Summary ---
Author Organization [facility] Address [facility]ly [facility] [place] [address] Care Team Providers Care Vice President Of Finance Name Role Phone Viv Hamm Primary Care Provider [phone] Albetro Avendano MD Unavailable [phone] Kylee Villanueva MD Primary Care Provider [phone] Encounter Details Date Type Department Care Team (Late st Contact Info) Description 06/04/2023 MyChart Message Enc [facility] Medical Group Family & Internal Medicine [facility] [address] [place] [address] Viv Hamm [place] [id number] [place] [address] Imaging Social History Tobacco Use Types [...] Sex Assigned at Female 11/14/2024 2:54 PM FURNACE REPAIRER HELPER Legal Sex Female 11:06 AM CDT Gender Identity Female 05/11/2025 1:56 PM CDT Sexual Orientation Not on file documented as of this encounter Plan of Treatment Upcoming Encounters Date Type Department Care Team (Latest Contact Info) Description 06/07/2025 5:00 PM CDT Hospital Encounter [facility] Interventional [place] [address] [id number] Elizabeth Ryder MD [address] [address] 06/07/2025 5:00 PM CDT - 06/07/2025 5:20 PM CDT Surgery [facility] [place]ventional [place] [address] [id number] Elizabeth Ryder MD [address] [address] INJECTION TRIGGER POINT-cervivcal/th oracic 06/11/2025 2:40 PM CDT Office Visit [facility] Medical Group Orthopedic & Sports Medicine - [place] [address] [place] [address] Reynaldo Bunch MD [address] [place] [address] 07/13/2025 9:00 AM CDT Hospital Encounter [facility] Interventional [place] [address] [id number] Elizabeth Ryder MD [address] [place] [address] 07/13/2025 9:00 AM CDT - 07/13/2025 9:20 AM CDT Surgery [facility] Interventional [place] [address] [id number] Elizabeth Ryder MD Three [facility] [address] [place] [address] INJECTION EPIDURAL STEROID [id number] 07/13/2025 11:00 AM CDT Office Visit [facility] Medical [facility] Multispecialty Care - [facility] 3 [facility]., [address] [place] [address] Esau Hoff MD 3 [facility] [address] [place] [address] 09/13/2025 7:40 AM FURNACE REPAIRER HELPER Office Visit [facility] Medical [facility] Family & Internal Medicine - [address] [address] Kylee Villanueva MD [address] [place] [address] [phone] Scheduled Procedures Name Priority Associated Diagnoses Date/Ti me INJECTION TRIGGER POINT Myofascial pain 06/07/2025 5:00 PM CDT INJECTION EPIDURAL STEROID CERVICAL Cervical radiculopathy 07/13/2025 9:00 AM CDT documented as of this encounter Visit Diagnoses Not on filedocumented in this encounter Additional Health Concerns Infection Onset Date Last Indicated Resolved Time COVID-19 Rule Out 12/13/2023 12/13/2023 12/13/2023 8:54 AM FURNACE REPAIRER HELPER COVID-19 Rule Out 08/30/2024 08/30/2024 08/30/2024 8:14 AM FURNACE REPAIRER HELPER COVID-19 Rule Out 11/03/2024 11/03/2024 11/03/2024 10:48 AM FURNACE REPAIRER HELPER documented as of this encounter Care Teams Vice President Of Finance Relationship Specialty [place] [address] [place] [address] PCP - General PHYSICIAN COUNTY DIRECTOR 02/03/21 06/06/23 [place] [address] [address] [place] [address] PCP - General FAMILY PRACTICE 06/07/23 [place] [address] [place] [address] NEUROLOGICAL SURGERY 11/24/21 documented as of this encounter
--- OUTSIDE RECORDS SUMMARY | 2025-05-30 05:00 | XMS_ITS | Encounter Summary ---
Author Organization [facility] Address [address] [place] [address] Care Team Providers Care Biology Lecturer Name Role Phone Viv Hamm Primary Care Provider [phone] Alberto Avendano MD Unavailable [phone] Kylee Villanueva MD Primary Care Provider [phone] Encounter Details Date Type Department Care Team (Late st Contact Info) Description 08/20/2021 Sysomoshart Message Enc [facility] Medical Group Family & Internal Medicine [facility] [address] [place] [address] Viv Hamm [place] [id number] [place] [address] RE: Test Results Social History Tobacco [...] Assigned at Female 11/14/2024 2:54 PM INSURANCE SALES ASSOCIATE Legal Sex Female 11:06 AM CDT [...] Encounter [facility] Interventional [place] [address] [id number] Elizabeth Ryder MD Three [address] [address] 06/07/2025 5:00 PM CDT - 06/07/2025 5:20 PM CDT Surgery [facility] [place] [address] [id number] Elizabeth Ryder MD Three [address] [address] INJECTION TRIGGER POINT-cervivcal/th oracic 06/11/2025 2:40 PM CDT Office Visit [facility] Medical Group Orthopedic & Sports Medicine - [place] [address] [place] [address] Reynaldo Bunch MD [address] [place] [address] 07/13/2025 9:00 AM CDT Hospital Encounter [facility] Interventional [place] [address] [id number] Elizabeth Ryder MD Three [facility] [address] [place] [address] 07/13/2025 9:00 AM CDT - 07/13/2025 9:20 AM CDT Surgery [facility] Interventional Pain Management [place] [address] [id number] Elizabeth Ryder MD Three [facility] [address] [place] [address] INJECTION EPIDURAL STEROID [id number] 07/13/2025 11:00 AM CDT Office Visit [facility] Multispecialty Care - [facility] 3 [facility] [address] [place] [address] Esau Hoff MD 3 [facility] [address] [place] [address] 09/13/2025 7:40 AM INSURANCE SALES ASSOCIATE Office Visit [facility] Medical [facility] Family & Internal Medicine - [address] [address] Kylee Villanueva MD [address] [place] [address] [place] [address] [phone] Scheduled Procedures Name Priority Associated Diagnoses Date/Ti me INJECTION TRIGGER POINT Myofascial pain 06/07/2025 5:00 PM CDT INJECTION EPIDURAL STEROID CERVICAL Cervical radiculopathy 07/13/2025 9:00 AM CDT documented as of this encounter Visit Diagnoses Not on filedocumented in this encounter Additional Health Concerns Infection Onset Date Last Indicated Resolved Time COVID-19 Rule Out 12/13/2023 12/13/2023 12/13/2023 8:54 AM INSURANCE SALES ASSOCIATE COVID-19 Rule Out 08/30/2024 08/30/2024 08/30/2024 8:14 AM INSURANCE SALES ASSOCIATE COVID-19 Rule Out 11/03/2024 11/03/2024 11/03/2024 10:48 AM INSURANCE SALES ASSOCIATE documented as of this encounter Care Teams Biology Lecturer Relationship Specialty [place] [address] [place] [address] PCP - General PHYSICIAN SURGICAL PATHOLOGIST 02/03/21 06/06/23 [place] [address] [address] [place] [address] PCP - General FAMILY PRACTICE 06/07/23 [place] [address] [place] [address] NEUROLOGICAL SURGERY 11/24/21 documented as of this encounter
--- OUTSIDE RECORDS SUMMARY | 2025-05-30 05:00 | XMS_ITS | Encounter Summary ---
Author Organization [facility] Address [address] [place] [address] Care Team Providers Care Turnstile Collector Name Role Phone Viv Hamm Primary Care Provider [phone] Alberto Avendano MD Unavailable [phone] Kylee Villanueva MD Primary Care Provider [phone] Encounter Details Date Type Department Care Team (Late st Contact Info) Description 09/04/2021 MyChart Message Enc [facility] Medical Group Family & Internal Medicine [facility] [address] [place] [address] Viv Hamm [place] [id number] [place] [address] MRI Results Social History Tobacco Use [...] Sex Assigned at Female 11/14/2024 2:54 PM SEARCH AND RESCUE OFFICER Legal Sex Female 11:06 AM CDT Gender Identity Female 05/11/2025 1:56 PM CDT Sexual Orientation Not on file COVID-19 Exposure Response Date Recorded In the last month, have you been in contact with someone who was confirmed or suspected to have Coronavirus / COVID-19? No / Unsure 09/03/2021 7:47 AM SEARCH AND RESCUE OFFICER documented as of this encounter Plan of Treatment Upcoming Encounters Date Type Department Care Team (Latest Contact Info) Description 06/07/2025 5:00 PM CDT Hospital Encounter [facility] Interventional [place] [address] [id number] Elizabeth Ryder MD Three [address] [address] 06/07/2025 5:00 PM CDT - 06/07/2025 5:20 PM CDT Surgery [facility] Interventional [place] [address] [id number] Elizabeth Ryder MD Three [address] [address] INJECTION TRIGGER POINT-cervivcal/th oracic 06/11/2025 2:40 PM CDT Office Visit [facility] Medical Group Orthopedic & Sports Medicine - [place] [address] [place] [address] Reynaldo Bunch MD [address] [place] [address] 07/13/2025 9:00 AM CDT Hospital Encounter [facility] Interventional [place] [address] [id number] Elizabeth Ryder MD Three [facility] [address] [place] [address] 07/13/2025 9:00 AM CDT - 07/13/2025 9:20 AM CDT Surgery [facility] Interventional [place] [address] [id number] Elizabeth Ryder MD Three [facility] [address] [place] [address] INJECTION EPIDURAL STEROID [id number] 07/13/2025 11:00 AM CDT Office Visit [facility] Multispecialty Care - [facility] 3 [facility] [address] [place] [address] Esau Hoff MD 3 [facility] [address] [place] [address] 09/13/2025 7:40 AM SEARCH AND RESCUE OFFICER Office Visit [facility] Medical [facility] Family & Internal Medicine - [address] [address] Kylee Villanueva MD [address] [place] [address] [place], [place] [phone] Scheduled Procedures Name Priority Associated Diagnoses Date/Ti me INJECTION TRIGGER POINT Myofascial pain 06/07/2025 5:00 PM CDT INJECTION EPIDURAL STEROID CERVICAL Cervical radiculopathy 07/13/2025 9:00 AM CDT documented as of this encounter Visit Diagnoses Not on filedocumented in this encounter Additional Health Concerns Infection Onset Date Last Indicated Resolved Time COVID-19 Rule Out 12/13/2023 12/13/2023 12/13/2023 8:54 AM SEARCH AND RESCUE OFFICER COVID-19 Rule Out 08/30/2024 08/30/2024 08/30/2024 8:14 AM SEARCH AND RESCUE OFFICER COVID-19 Rule Out 11/03/2024 11/03/2024 11/03/2024 10:48 AM SEARCH AND RESCUE OFFICER documented as of this encounter Care Teams Turnstile Collector Relationship Specialty [place] [address] [place] [address] PCP - General PHYSICIAN KOHINOOR OPERATOR 02/03/21 06/06/23 [place] [address] [address] [place] [address] PCP - General FAMILY PRACTICE 06/07/23 [place] [address] [place] [address] NEUROLOGICAL SURGERY 11/24/21 documented as of this encounter
--- OUTSIDE RECORDS SUMMARY | 2025-05-30 05:00 | XMS_ITS | Encounter Summary ---
Author Organization [facility] Address [address] [place] [address] Care Team Providers Care Industrial Staff Nurse Name Role Phone Viv Hamm Primary Care Provider [phone] Alberto Avendano MD Unavailable [phone] Kylee Villanueva MD Primary Care Provider [phone] Encounter Details Date Type Department Care Team (Late st Contact Info) Description 11/24/2021 MyChart Message Enc [facility] Medical Group Multispecialty Care - [facility] [address] [facility] [address], [address] [place] [address] Shane Noble MD 1 [place] [address] Information Social History Tobacco Use Types Packs/Day [...] Sex Assigned at Female 11/14/2024 2:54 PM TAXI DANCER Legal Sex Female 11:06 AM CDT Gender Identity Female 05/11/2025 1:56 PM CDT Sexual Orientation Not on file COVID-19 Exposure Response Date Recorded In the last month, have you been in contact with someone who was confirmed or suspected to have Coronavirus / COVID-19? No / Unsure 11/10/2021 12:11 PM TAXI DANCER documented as of this encounter Plan of Treatment Upcoming Encounters Date Type Department Care Team (Latest Contact Info) Description 06/07/2025 5:00 PM CDT Hospital Encounter [facility] Interventional [place] [address] [id number] Elizabeth Ryder MD Three [address] [address] 06/07/2025 5:00 PM CDT - 06/07/2025 5:20 PM CDT Surgery [facility] [place] [address] [id number] Elizabeth Ryder MD Three [address] [address] INJECTION TRIGGER POINT-cervivcal/th oracic 06/11/2025 2:40 PM CDT Office Visit [facility] Medical Group Orthopedic & Sports Medicine - [place] [address] [place] [address] Reynaldo Bunch MD [address] [place] [address] 07/13/2025 9:00 AM CDT Hospital Encounter [facility] Interventional [place] [address] [id number] Elizabeth Ryder MD Three [facility] [address] [place] [address] 07/13/2025 9:00 AM CDT - 07/13/2025 9:20 AM CDT Surgery [facility] Interventional [place] [address] [id number] Elizabeth Ryder MD Three [facility] [address] [place] [address] INJECTION EPIDURAL STEROID [id number] 07/13/2025 11:00 AM CDT Office Visit [facility] Multispecialty Care - [facility] 3 [facility] [address] [place] [address] Esau Hoff MD 3 [facility] [address] [place] [address] 09/13/2025 7:40 AM TAXI DANCER Office Visit [facility] Medical [facility] Family & Internal Medicine - [address] [address] Kylee Villanueva MD [address] [place] [address] [place] [address] Scheduled Procedures Name Priority Associated Diagnoses Date/Ti me INJECTION TRIGGER POINT Myofascial pain 06/07/2025 5:00 PM CDT INJECTION EPIDURAL STEROID CERVICAL Cervical radiculopathy 07/13/2025 9:00 AM CDT documented as of this encounter Visit Diagnoses Not on filedocumented in this encounter Additional Health Concerns Infection Onset Date Last Indicated Resolved Time COVID-19 Rule Out 12/13/2023 12/13/2023 12/13/2023 8:54 AM TAXI DANCER COVID-19 Rule Out 08/30/2024 08/30/2024 08/30/2024 8:14 AM TAXI DANCER COVID-19 Rule Out 11/03/2024 11/03/2024 11/03/2024 10:48 AM TAXI DANCER documented as of this encounter Care Teams Industrial Staff Nurse Relationship Specialty [place] [address] [place] [address] PCP - General PHYSICIAN PEARL PELLER 02/03/21 06/06/23 [place] [address] [address] [place] [address] PCP - General FAMILY PRACTICE 06/07/23 [place] [address] [place] [address] NEUROLOGICAL SURGERY 11/24/21 documented as of this encounter
--- OUTSIDE RECORDS SUMMARY | 2025-05-30 05:00 | XMS_ITS | Encounter Summary ---
Author Organization [facility] Address [facility] [place] [address] Care Team Providers Care Singing Teacher Name Role Phone Viv Hamm Primary Care Provider [phone] Alberto Avendano MD Unavailable [phone] Kylee Villanueva MD Primary Care Provider [phone] Encounter Details Date Type Department Care Team (Latest Contact Info) Description 11/17/2021 MyChart Message Enc [facility] Medical Group Multispecialty Care - [facility] 3 [facility], [address] [place] [address] Shane Noble MD 1 [place] [address] Appt with Neurosurgeon Social History Tobacco Use [...] Sex Assigned at Female 11/14/2024 2:54 PM FLAT SURFACER Legal Sex Female 11:06 AM CDT Gender Identity Female 05/11/2025 1:56 PM CDT Sexual Orientation Not on file COVID-19 Exposure Response Date Recorded In the last month, have you been in contact with someone who was confirmed or suspected to have Coronavirus / COVID-19? No / Unsure 11/10/2021 12:11 PM FLAT SURFACER documented as of this encounter Plan of Treatment Upcoming Encounters Date Type Department Care Team (Latest Contact Info) Description 06/07/2025 5:00 PM CDT Hospital Encounter [facility] [place]ventional [place] [address] [id number] Elizabeth Ryder MD Three [address] [address] 06/07/2025 5:00 PM CDT - 06/07/2025 5:20 PM CDT Surgery [facility] [place] [address] [id number] Elizabeth Ryder MD Three [address] [address] INJECTION TRIGGER POINT-cervivcal/th oracic 06/11/2025 2:40 PM CDT Office Visit [facility] Medical Group Orthopedic & Sports Medicine - [place] [address] [place] [address] Reynaldo Bunch MD [address] [place] [address] 07/13/2025 9:00 AM CDT Hospital Encounter [facility] [place] [address] [id number] Elizabeth Ryder MD Three [facility] [address] [place] [address] 07/13/2025 9:00 AM CDT - 07/13/2025 9:20 AM CDT Surgery [facility] Interventional [place] [address] [id number] Elizabeth Ryder MD Three [facility] [address] [place] [address] INJECTION EPIDURAL STEROID [id number] 07/13/2025 11:00 AM CDT Office Visit [facility] Multispecialty Care - [facility] 3 [facility], [address] [place] [address] Esau Hoff MD 3 [facility] [address] [place] [address] 09/13/2025 7:40 AM FLAT SURFACER Office Visit [facility] Medical [facility] Family & Internal Medicine - [address] [address] Kylee Villanueva MD [address] [place] [address] [place] [address] Scheduled Procedures Name Priority Associated Diagnoses Date/Ti me INJECTION TRIGGER POINT Myofascial pain 06/07/2025 5:00 PM CDT INJECTION EPIDURAL STEROID CERVICAL Cervical radiculopathy 07/13/2025 9:00 AM CDT documented as of this encounter Visit Diagnoses Not on filedocumented in this encounter Additional Health Concerns Infection Onset Date Last Indicated Resolved Time COVID-19 Rule Out 12/13/2023 12/13/202312/13/2023 8:54 AM FLAT SURFACER COVID-19 Rule Out 08/30/2024 08/30/2024 08/30/2024 8:14 AM FLAT SURFACER COVID-19 Rule Out 11/03/2024 11/03/2024 11/03/2024 10:48 AM FLAT SURFACER documented as of this encounter Care Teams Singing Teacher Relationship Specialty [place] [address] [place] [address] PCP - General PHYSICIAN CHANGE CONTROL COORDINATOR 02/03/21 06/06/23 [place] [address] [address] [place] [address] PCP - General FAMILY PRACTICE 06/07/23 [place] [address] [place] [address] NEUROLOGICAL SURGERY 11/24/21 documented as of this encounter
--- OUTSIDE RECORDS SUMMARY | 2025-05-30 05:00 | XMS_ITS | Encounter Summary ---
Author Organization [facility] Address [address] [place] [address] Phone Care Team Providers Care Metal Melter Name Role Phone Shane Noble MD Unavailable [phone] Kylee Villanueva MD Primary Care Provider [phone] Reynaldo Bunch MD Unavailable [phone] Reason for Visit * Reason Onset Date Comments LASHAY linn 2025 Encounter Details Date Type Department Care Team (Late st Contact Info) Description 2025 Telephone [facility] Pediatric Genetics [facility] 2nd [place] [address] [place] [address] Ale Thompson, 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 [address] [place] [address] PCP - General Family Medicine 07/12/23 Shane Noble MD [address] [address] Fellow Neurology 08/17/22 Reynaldo Bunch MD [address] [facility] [place] [address] Orthopedic Surgery 08/10/23 documented as of this encounter
--- OUTSIDE RECORDS SUMMARY | 2025-05-30 05:00 | XMS_ITS | Encounter Summary ---
Author Organization [facility] Address [address] [place] [address] Care Team Providers Care Ultrasonic Hand Solderer Name Role Phone Viv Hamm Primary Care Provider [phone] Alberto Avendano MD Unavailable [phone] Kylee Villanueva MD Primary Care Provider [phone] Encounter Details Date Type Department Care Team (Late st Contact Info) Description 06/04/2023 Compact Imagingt Message Enc [facility] Interventional [place] [address] [id number] Concha Albert NP 3 [facility] [address] [place] [address] [phone] (Work) Imaging Request - Update [...] Sex Assigned at Female 11/14/2024 2:54 PM SPORTS MANAGEMENT PROFESSOR Legal Sex Female 11:06 AM CDT Gender Identity Female 05/11/2025 1:56 PM CDT Sexual Orientation Not on file documented as of this encounter Plan of Treatment Upcoming Encounters Date Type Department Care Team (Latest Contact Info) Description 06/07/2025 5:00 PM CDT Hospital Encounter [facility] Interventional Pain [place] [address] [id number] Elizabeth Ryder MD Three [address] [address] 06/07/2025 5:00 PM CDT - 06/07/2025 5:20 PM CDT Surgery [facility] Interventional [place] [address] [id number] Elizabeth Ryder MD Three [address] [address] INJECTION TRIGGER POINT-cervivcal/th oracic 06/11/2025 2:40 PM CDT Office Visit [facility] Medical Group Orthopedic & Sports Medicine - [place] [address] [place] [address] Reynaldo Bunch MD [address] [place] [address] 07/13/2025 9:00 AM CDT Hospital Encounter [facility] Interventional [place] [address] [id number] Elizabeth Ryder MD Three [facility] [address] [place] [address] 07/13/2025 9:00 AM CDT - 07/13/2025 9:20 AM CDT Surgery [facility] Interventional Pain [place] [address] [id number] Elizabeth Ryder MD Three [facility] [address] [place] [address] INJECTION EPIDURAL STEROID [id number] 07/13/2025 11:00 AM CDT Office Visit [facility] Multispecialty Care - [facility] 3 [facility] [address] [place] [address] Esau Hoff MD 3 [facility] [address] [place] [address] 09/13/2025 7:40 AM SPORTS MANAGEMENT PROFESSOR Office Visit [facility] Medical [facility] Family & Internal Medicine - [address] [address] Kylee Villanueva MD [address] [place] [address] [place] [address] [phone] Scheduled Procedures Name Priority Associated Diagnoses Date/Ti me INJECTION TRIGGER POINT Myofascial pain 06/07/2025 5:00 PM CDT INJECTION EPIDURAL STEROID CERVICAL Cervical radiculopathy 07/13/2025 9:00 AM CDT documented as of this encounter Visit Diagnoses Not on filedocumented in this encounter Additional Health Concerns Infection Onset Date Last Indicated Resolved Time COVID-19 Rule Out 12/13/2023 12/13/2023 12/13/2023 8:54 AM SPORTS MANAGEMENT PROFESSOR COVID-19 Rule Out 08/30/2024 08/30/2024 08/30/2024 8:14 AM SPORTS MANAGEMENT PROFESSOR COVID-19 Rule Out 11/03/2024 11/03/2024 11/03/2024 10:48 AM SPORTS MANAGEMENT PROFESSOR documented as of this encounter Care Teams Ultrasonic Hand Solderer Relationship Specialty [place] [address] [place] [address] PCP - General PHYSICIAN COMMERCIAL ATTACHE 02/03/21 06/06/23 [place] [address] [address] [place] [address] PCP - General FAMILY PRACTICE 06/07/23 [place] [address] [place] [address] NEUROLOGICAL SURGERY 11/24/21 documented as of this encounter
--- OUTSIDE RECORDS SUMMARY | 2025-05-30 05:00 | XMS_ITS | Encounter Summary ---
Author Organization [facility] Address [address] [place] [address] Care Team Providers Care Truck Headlight Assembler Name Role Phone Viv Hamm Primary Care Provider [phone] Alberto Avendano MD Unavailable [phone] Kylee Villanueva MD Primary Care Provider [phone] Encounter Details Date Type Department Care Team (Late st Contact Info) Description 01/09/2022 MyChart Message Enc [facility] Medical Group Family & Internal Medicine [facility] [address] [place] [address] [place] [id number] [place] [address] Appt Social History Tobacco Use Types [...] Sex Assigned at Female 11/14/2024 2:54 PM TETRYL BLENDER OPERATOR Legal Sex Female 11:06 AM CDT [...] Description 06/07/2025 5:00 PM CDT Hospital Encounter [facility] Interventional [place] [address] [id number] Elizabeth Ryder MD Three [facility] [address] [place] [address] 06/07/2025 5:00 PM CDT - 06/07/2025 5:20 PM CDT Surgery [facility] [place] [address] [id number] Elizabeth Ryder MD Three [facility] [address] [place] [address] INJECTION TRIGGER POINT-cervivcal/th oracic 06/11/2025 2:40 PM CDT Office Visit [facility] Medical Group Orthopedic & Sports Medicine - [place] [address] [place] [address] Reynaldo Bunch MD [address] [place] [address] 07/13/2025 9:00 AM CDT Hospital Encounter [facility] Interventional Pain [place] [address] [id number] Elizabeth Ryder MD Three [facility] [address] [place] [address] 07/13/2025 9:00 AM CDT - 07/13/2025 9:20 AM CDT Surgery [facility] Interventional Pain [place] [address] [id number] Elizabeth Ryder MD Three [facility] [address] [place] [address] INJECTION EPIDURAL STEROID [id number] 07/13/2025 11:00 AM CDT Office Visit [facility] Medical [facility] Multispecialty Care - [facility] 3 [facility], [address] [place] [address] Esau Hoff MD 3 [facility] [address] [place] [address] 09/13/2025 7:40 AM TETRYL BLENDER OPERATOR Office Visit [facility] Medical Group Family & Internal Medicine - [address] [address] Kylee Villanueva MD [address] [place] [address] [place] [address] [phone] Scheduled Procedures Name Priority Associated Diagnoses Date/Ti me INJECTION TRIGGER POINT Myofascial pain 06/07/2025 5:00 PM CDT INJECTION EPIDURAL STEROID CERVICAL Cervical radiculopathy 07/13/2025 9:00 AM CDT documented as of this encounter Visit Diagnoses Not on filedocumented in this encounter Additional Health Concerns Infection Onset Date Last Indicated Resolved Time COVID-19 Rule Out 12/13/2023 12/13/2023 12/13/2023 8:54 AM TETRYL BLENDER OPERATOR COVID-19 Rule Out 08/30/2024 08/30/2024 08/30/2024 8:14 AM TETRYL BLENDER OPERATOR COVID-19 Rule Out 11/03/2024 11/03/2024 11/03/2024 10:48 AM TETRYL BLENDER OPERATOR documented as of this encounter Care Teams Truck Headlight Assembler Relationship Specialty [place] [address] [place] [address] PCP - General PHYSICIAN CASHIERS BUSSERS FOOD RUNNERS 02/03/21 06/06/23 [place] [address] [address] [address] PCP - General FAMILY PRACTICE 06/07/23 [place] [address] [facility] [place] [address] NEUROLOGICAL SURGERY 11/24/21 documented as of this encounter
--- OUTSIDE RECORDS SUMMARY | 2025-05-30 05:00 | XMS_ITS | Encounter Summary ---
Author Organization [facility] Address [address] [place] [address] Care Team Providers Care Bar Pointer Name Role Phone Alberto Avendano MD Unavailable [phone] Kylee Villanueva MD Primary Care Provider [phone] Encounter Details Date Type Department Care Team (Late st Contact Info) Description 08/17/2023 [facility] Message Enc [facility] Interventional [place] [address] [id number] Concha Albert NP 3 [facility] [address] [place] [address] -[phone] (Work) Injection denied by insurance [...] Sex Assigned at Female 11/14/2024 2:54 PM CENTRAL OFFICE WORKER Legal Sex Female 11:06 AM CDT Gender Identity Female 05/11/2025 1:56 PM CDT Sexual Orientation Not on file documented as of this encounter Plan of Treatment Upcoming Encounters Date Type Department Care Team (Latest Contact Info) Description 06/07/2025 5:00 PM CDT Hospital Encounter [facility] Interventional [place] [address] [id number] Elizabeth Ryder MD [address] [address] 06/07/2025 5:00 PM CDT - 06/07/2025 5:20 PM CDT Surgery [facility] Interventional [place] [address] [id number] Elizabeth Ryder MD [address] [address] INJECTION TRIGGER POINT-cervivcal/th oracic 06/11/2025 2:40 PM CDT Office Visit [facility] Medical Group Orthopedic & Sports Medicine - [place] [address] [place] [address] Reynaldo Bunch MD [address] [place] [address] 07/13/2025 9:00 AM CDT Hospital Encounter [facility] Interventional [place] [address] [id number] Elizabeth Ryder MD [address] [place] [address] 07/13/2025 9:00 AM CDT - 07/13/2025 9:20 AM CDT Surgery [facility] Interventional [place] [address] [id number] Elizabeth Ryder MD Three [facility] [address] [place] [address] INJECTION EPIDURAL STEROID [id number] 07/13/2025 11:00 AM CDT Office Visit [facility] Multispecialty Care - [facility] 3 [facility] [address] [place] [address] Esau Hoff MD 3 [facility] [address] [place] [address] 09/13/2025 7:40 AM CENTRAL OFFICE WORKER Office Visit [facility] Medical [facility] Family & Internal Medicine - [address] [address] Kylee Villanueva MD [address] [place] [address] [phone] Scheduled Procedures Name Priority Associated Diagnoses Date/Ti me INJECTION TRIGGER POINT Myofascial pain 06/07/2025 5:00 PM CDT INJECTION EPIDURAL STEROID CERVICAL Cervical radiculopathy 07/13/2025 9:00 AM CDT documented as of this encounter Visit Diagnoses Not on filedocumented in this encounter Additional Health Concerns Infection Onset Date Last Indicated Resolved Time COVID-19 Rule Out 12/13/2023 12/13/2023 12/13/2023 8:54 AM CENTRAL OFFICE WORKER COVID-19 Rule Out 08/30/2024 08/30/2024 08/30/2024 8:14 AM CENTRAL OFFICE WORKER COVID-19 Rule Out 11/03/2024 11/03/2024 11/03/2024 10:48 AM CENTRAL OFFICE WORKER documented as of this encounter Care Teams Bar Pointer Relationship Specialty Start [place] [address] [facility] [place] [address] PCP - General FAMILY PRACTICE 06/07/23 Alberto Avendano MD NEUROLOGICAL SURGERY 11/24/21 documented as of this encounter
--- OUTSIDE RECORDS SUMMARY | 2025-05-30 05:00 | XMS_ITS | Encounter Summary ---
Author Organization [facility] Address [address] [place] [address] Care Team Providers Care Roll Changer Name Role Phone Viv Hamm Primary Care Provider [phone] Alberto Avendano MD Unavailable [phone] Kylee Villanueva MD Primary Care Provider [phone] Encounter Details Date Type Department Care Team (Late st Contact Info) Description 04/21/2023 MyChart Message Enc [facility] Medical Group - [facility] [address] [place], [place] [address] [facility] Provider Air Quality Message Social [...] Sex Assigned at Female 11/14/2024 2:54 PM WELDING PANTOGRAPH MACHINE OPERATOR Legal Sex Female 11:06 AM [...] AM CDT Elroy Knight RN Active * [place] Suicide Severity Rating Scale (Screener/Recent Self-Report) Question [...] 06/07/2025 5:00 PM CDT Hospital Encounter [facility] Interventional [place] [address] [id number] Elizabeth Ryder MD [address] [address] 06/07/2025 5:00 PM CDT - 06/07/2025 5:20 PM CDT Surgery [facility] [place]ventional [place] [address] [id number] Elizabeth Ryder MD [facility] [address] [place] [address] INJECTION TRIGGER POINT-cervivcal/th oracic 06/11/2025 2:40 PM CDT Office Visit [facility] Orthopedic & Sports Medicine - [place] [address] [place] [address] Reynaldo Bunch MD [address] [place] [address] 07/13/2025 9:00 AM CDT Hospital Encounter [facility] Interventional [place] [address] [id number] Elizabeth Ryder MD Three [facility] [address] [place] [address] 07/13/2025 9:00 AM CDT - 07/13/2025 9:20 AM CDT Surgery [facility] Interventional Pain [place] [address] [id number] Elizabeth Ryder MD Three [facility] [address] [place] [address] INJECTION EPIDURAL STEROID [id number] 07/13/2025 11:00 AM CDT Office Visit [facility] Multispecialty Care - [facility] 3 [facility], [address] [place] [address] Esau Hoff MD 3 [facility] [address] [place] [address] 09/13/2025 7:40 AM WELDING PANTOGRAPH MACHINE OPERATOR Office Visit [facility] Family & Internal Medicine - [address] [phone] [place] [address] [place] [address] Scheduled Procedures Name Priority Associated Diagnoses Date/Ti me INJECTION TRIGGER POINT Myofascial pain 06/07/2025 5:00 PM CDT INJECTION EPIDURAL STEROID CERVICAL Cervical radiculopathy 07/13/2025 9:00 AM CDT documented as of this encounter Visit Diagnoses Not on filedocumented in this encounter Additional Health Concerns Infection Onset Date Last Indicated Resolved Time COVID-19 Rule Out 12/13/2023 12/13/2023 12/13/2023 8:54 AM WELDING PANTOGRAPH MACHINE OPERATOR COVID-19 Rule Out 08/30/2024 08/30/2024 08/30/2024 8:14 AM WELDING PANTOGRAPH MACHINE OPERATOR COVID-19 Rule Out 11/03/2024 11/03/2024 11/03/2024 10:48 AM WELDING PANTOGRAPH MACHINE OPERATOR documented as of this encounter Care Teams Roll Changer Relationship Specialty [place] [address] [place] [address] PCP - General PHYSICIAN COOK ROOM SUPERVISOR 02/03/21 06/06/23 [place] [address] [place] [address] PCP - General FAMILY PRACTICE 06/07/23 [place] [address] [place] [address] NEUROLOGICAL SURGERY 11/24/21 documented as of this encounter
--- OUTSIDE RECORDS SUMMARY | 2025-05-30 05:00 | XMS_ITS | Encounter Summary ---
Author Organization [facility] Address [address] [place] [address] Care Team Providers Care Crate Maker Name Role Phone Viv Hamm Primary Care Provider [phone] Alberto Avendano MD Unavailable [phone] Kylee Villanueva MD Primary Care Provider [phone] Encounter Details Date Type Department Care Team (Late st Contact Info) Description 07/01/2021 MyChart Message Enc [facility] Medical Group Family & Internal Medicine [facility] [address] [place] [address] Viv Hamm [place] [id number] [place] [address] RE: Test Results Social History Tobacco [...] Sex Assigned at Female 11/14/2024 2:54 PM GEOTHERMAL POWERPLANT MECHANIC Legal Sex Female 11:06 AM CDT Gender [...] Description 06/07/2025 5:00 PM CDT Hospital Encounter [facility] Interventional [place] [address] [id number] Elizabeth Ryder MD Three [address] [address] 06/07/2025 5:00 PM CDT - 06/07/2025 5:20 PM CDT Surgery [facility] [place] [address] [id number] Elizabeth Ryder MD [address] [address] INJECTION TRIGGER POINT-cervivcal/th oracic 06/11/2025 2:40 PM CDT Office Visit [facility] Medical Group Orthopedic & Sports Medicine - [place] [address] [place] [address] Reynaldo Bunch MD [address] [place] [address] 07/13/2025 9:00 AM CDT Hospital Encounter [facility] [place] [address] [id number] Elizabeth Ryder MD Three [facility] [address] [place] [address] 07/13/2025 9:00 AM CDT - 07/13/2025 9:20 AM CDT Surgery [facility] Interventional Pain [place] [address] [id number] Elizabeth Ryder MD Three [facility] [address] [place] [address] INJECTION EPIDURAL STEROID [id number] 07/13/2025 11:00 AM CDT Office Visit [facility] Multispecialty Care - [facility] 3 [facility] [address] [place] [address] Esau Hoff MD 3 [facility] [address] [place] [address] 09/13/2025 7:40 AM GEOTHERMAL POWERPLANT MECHANIC Office Visit [facility] Medical [facility] Family & Internal Medicine - [address] [address] Kylee Villanueva MD [address] [place] [address] [place] [phone] Scheduled Procedures Name Priority Associated Diagnoses Date/Ti me INJECTION TRIGGER POINT Myofascial pain 06/07/2025 5:00 PM CDT INJECTION EPIDURAL STEROID CERVICAL Cervical radiculopathy 07/13/2025 9:00 AM CDT documented as of this encounter Visit Diagnoses Not on filedocumented in this encounter Additional Health Concerns Infection Onset Date Last Indicated Resolved Time COVID-19 Rule Out 12/13/2023 12/13/2023 12/13/2023 8:54 AM GEOTHERMAL POWERPLANT MECHANIC COVID-19 Rule Out 08/30/2024 08/30/2024 08/30/2024 8:14 AM GEOTHERMAL POWERPLANT MECHANIC COVID-19 Rule Out 11/03/2024 11/03/2024 11/03/2024 10:48 AM GEOTHERMAL POWERPLANT MECHANIC documented as of this encounter Care Teams Crate Maker Relationship Specialty [place] [address] [place] [address] PCP - General PHYSICIAN DOUGHMAKER 02/03/21 06/06/23 [place] [address] [address] [place] [address] PCP - General FAMILY PRACTICE 06/07/23 [place] [address] [place] [address] NEUROLOGICAL SURGERY 11/24/21 documented as of this encounter
--- OUTSIDE RECORDS SUMMARY | 2025-05-30 05:00 | XMS_ITS | Encounter Summary ---
Author Organization [facility] Address [facility] [place] [address] Care Team Providers Care Member Of The Legislative Council Name Role Phone Viv Hamm Primary Care Provider [phone] Alberto Avendano MD Unavailable [phone] Kylee Villanueva MD Primary Care Provider [phone] Encounter Details Date Type Department Care Team (Late st Contact Info) Description 12/22/2021 MyChart Message Enc [facility] Medical Group Multispecialty Care - [facility] [address] [facility] [address], [address] [place] [address] Shane Noble MD [address] [place] [address] Appt Social History Tobacco Use Types Packs/Day [...] Sex Assigned at Female 11/14/2024 2:54 PM REFRACTORY REPAIRER Legal Sex Female 11:06 AM CDT Gender Identity Female 05/11/2025 1:56 PM CDT Sexual Orientation Not on file COVID-19 Exposure Response Date Recorded In the last 10 days, have yo u been in contact with someone who was confirmed or suspected to have Coronavirus/COVID-19? No / Unsure 12/22/2021 8:14 AM REFRACTORY REPAIRER documented as of this encounter Plan of Treatment Upcoming Encounters Date Type Department Care Team (Latest Contact Info) Description 06/07/2025 5:00 PM CDT Hospital Encounter [facility] Interventional [place] [address] [id number] Elizabeth Ryder MD Three [facility] [address] [place] [address] 06/07/2025 5:00 PM CDT - 06/07/2025 5:20 PM CDT Surgery [facility] [place]ventional [place] [address] [id number] Elizabeth Ryder MD Three [address] [address] INJECTION TRIGGER POINT-cervivcal/th oracic 06/11/2025 2:40 PM CDT Office Visit [facility] Medical Group Orthopedic & Sports Medicine - [place] [address] [place] [address] Reynaldo Bunch MD [address] [place] [address] 07/13/2025 9:00 AM CDT Hospital Encounter [facility] Interventional [place] [address] [id number] Elizabeth Ryder MD Three [facility] [address] [place] [address] 07/13/2025 9:00 AM CDT - 07/13/2025 9:20 AM CDT Surgery [facility] Interventional [place] [address] [id number] Elizabeth Ryder MD Three [facility] [address] [place] [address] INJECTION EPIDURAL STEROID [id number] 07/13/2025 11:00 AM CDT Office Visit [facility] Multispecialty Care - [facility] 3 [facility] [address] [place] [address] Esau Hoff MD 3 [facility] [address] [place] [address] 09/13/2025 7:40 AM REFRACTORY REPAIRER Office Visit [facility] Medical [facility] Family & Internal Medicine - [address] [address] Kylee Villanueva MD [address] [place] [address] [place] [address] Scheduled Procedures Name Priority Associated Diagnoses Date/Ti me INJECTION TRIGGER POINT Myofascial pain 06/07/2025 5:00 PM CDT INJECTION EPIDURAL STEROID CERVICAL Cervical radiculopathy 07/13/2025 9:00 AM CDT documented as of this encounter Visit Diagnoses Not on filedocumented in this encounter Additional Health Concerns Infection Onset Date Last Indicated Resolved Time COVID-19 Rule Out 12/13/2023 12/13/2023 12/13/2023 8:54 AM REFRACTORY REPAIRER COVID-19 Rule Out 08/30/2024 08/30/2024 08/30/2024 8:14 AM REFRACTORY REPAIRER COVID-19 Rule Out 11/03/2024 11/03/2024 11/03/2024 10:48 AM REFRACTORY REPAIRER documented as of this encounter Care Teams Member Of The Legislative Council Relationship Specialty [place] [address] [place] [address] PCP - General PHYSICIAN PLATE CONDITIONER 02/03/21 06/06/23 [place] [address] [address] [place] [address] PCP - General FAMILY PRACTICE 06/07/23 [place] [address] [place] [address] NEUROLOGICAL SURGERY 11/24/21 documented as of this encounter
--- OUTSIDE RECORDS SUMMARY | 2025-05-30 05:00 | XMS_ITS | Encounter Summary ---
Author Organization [facility] Address [facility] [place] [address] Care Team Providers Care Insurance Clerk Name Role Phone Viv Hamm Primary Care Provider [phone] Alberto Avendano MD Unavailable [phone] Kylee Villanueva MD Primary Care Provider [phone] Encounter Details Date Type Department Care Team (Latest Contact Info) Description 05/10/2023 MyChart Message Enc [facility] Medical Group Multispecialty Care - [facility] 3 [facility], [address] [place] [address] Shane Noble MD 1 [place] [address] Vocal Cord Dysfunction/Paresis Social History Tobacco Use [...] Sex Assigned at Female 11/14/2024 2:54 PM DIESEL POWERPLANT MECHANIC HELPER Legal Sex Female 11:06 AM CDT [...] Description 06/07/2025 5:00 PM CDT Hospital Encounter [facility] Interventional Pain [place] [address] [id number] Elizabeth Ryder MD Three [address] [address] 06/07/2025 5:00 PM CDT - 06/07/2025 5:20 PM CDT Surgery [facility] Interventional Pain [place] [address] [id number] Elizabeth Ryder MD Three [facility] [address] [place] [address] INJECTION TRIGGER POINT-cervivcal/th oracic 06/11/2025 2:40 PM CDT Office Visit [facility] Orthopedic & Sports Medicine - [place] [address] [place] [address] Reynaldo Bunch MD [address] [place] [address] 07/13/2025 9:00 AM CDT Hospital Encounter [facility] Interventional Pain [place] [address] [id number] Elizabeth Ryder MD Three [facility] [address] [place] [address] 07/13/2025 9:00 AM CDT - 07/13/2025 9:20 AM CDT Surgery [facility] Interventional Pain Management [place] [address] [id number] lEizabeth Ryder MD Three [facility] [address] [place] [address] INJECTION EPIDURAL STEROID [id number] 07/13/2025 11:00 AM CDT Office Visit [facility] Multispecialty Care - [facility] 3 [facility] [address] [place] [address] Esau Hoff MD 3 [facility] [address] [place] [address] 09/13/2025 7:40 AM DIESEL POWERPLANT MECHANIC HELPER Office Visit [facility] Medical [facility] Family & Internal Medicine - [address] [address] Kylee Villanueva MD [address] [place] [address] [place] [address] Scheduled Procedures Name Priority Associated Diagnoses Date/Ti me INJECTION TRIGGER POINT Myofascial pain 06/07/2025 5:00 PM CDT INJECTION EPIDURAL STEROID CERVICAL Cervical radiculopathy 07/13/2025 9:00 AM CDT documented as of this encounter Visit Diagnoses Not on filedocumented in this encounter Additional Health Concerns Infection Onset Date Last Indicated Resolved Time COVID-19 Rule Out 12/13/2023 12/13/2023 12/13/2023 8:54 AM DIESEL POWERPLANT MECHANIC HELPER COVID-19 Rule Out 08/30/2024 08/30/2024 08/30/2024 8:14 AM DIESEL POWERPLANT MECHANIC HELPER COVID-19 Rule Out 11/03/2024 11/03/2024 11/03/2024 10:48 AM DIESEL POWERPLANT MECHANIC HELPER documented as of this encounter Care Teams Insurance Clerk Relationship Specialty [place] [address] [place] [address] PCP - General PHYSICIAN MUSIC AGENT 02/03/21 06/06/23 [place] [address] [address] [place] [address] PCP - General FAMILY PRACTICE 06/07/23 [place] [address] [place] [address] NEUROLOGICAL SURGERY 11/24/21 documented as of this encounter
--- OUTSIDE RECORDS SUMMARY | 2025-05-30 05:00 | XMS_ITS | Encounter Summary ---
Author Organization [facility] Address [facility] [place] [address] Care Team Providers Care Branding Specialist Name Role Phone Viv Hamm Primary Care Provider [phone] Alberto Avendano MD Unavailable [phone] Kylee Villanueva MD Primary Care Provider [phone] Encounter Details Date Type Department Care Team (Late st Contact Info) Description 10/01/2021 Rapt Mediahart Message Enc [facility] Medical Group Family & Internal Medicine [facility] [address] [place] [address] [place] Hamm [place] [id number] [place] [address] Should I keep Neurologist Appointment Social [...] Sex Assigned at Female 11/14/2024 2:54 PM RESERVATIONIST Legal Sex Female 11:06 AM CDT Gender Identity Female 05/11/2025 1:56 PM CDT Sexual Orientation Not on file COVID-19 Exposure Response Date Recorded In the last month, have you been in contact with someone who was confirmed or suspected to have Coronavirus / COVID-19? No / Unsure 10/03/2021 7:12 AM RESERVATIONIST documented as of this encounter Plan of Treatment Upcoming Encounters Date Type Department Care Team (Latest Contact Info) Description 06/07/2025 5:00 PM CDT Hospital Encounter [facility] Interventional [place] [address] [id number] Elizabeth Ryder MD Three [address] [address] 06/07/2025 5:00 PM CDT - 06/07/2025 5:20 PM CDT Surgery [facility] [place]ventional [place] [address] [id number] Elizabeth Ryder MD Three [address] [address] INJECTION TRIGGER POINT-cervivcal/th oracic 06/11/2025 2:40 PM CDT Office Visit [facility] Medical Group Orthopedic & Sports Medicine - [place] [address] [place] [address] Reynaldo Bunch MD [address] [place] [address] 07/13/2025 9:00 AM CDT Hospital Encounter [facility] Interventional [place] [address] [id number] Elizabeth Ryder MD Three [facility] [address] [place] [address] 07/13/2025 9:00 AM CDT - 07/13/2025 9:20 AM CDT Surgery [facility] Interventional Pain [place] [address] [id number] Elizabeth Ryder MD Three [facility] [address] [place] [address] INJECTION EPIDURAL STEROID [id number] 07/13/2025 11:00 AM CDT Office Visit [facility] Multispecialty Care - [facility] 3 [facility] [address] [place] [address] Esau Hoff MD 3 [facility] [address] [place] [address] 09/13/2025 7:40 AM RESERVATIONIST Office Visit [facility] Medical [facility] Family & Internal Medicine - [address] [address] Kylee Villanueva MD [address] [place] [address] [place] [phone] Scheduled Procedures Name Priority Associated Diagnoses Date/Ti me INJECTION TRIGGER POINT Myofascial pain 06/07/2025 5:00 PM CDT INJECTION EPIDURAL STEROID CERVICAL Cervical radiculopathy 07/13/2025 9:00 AM CDT documented as of this encounter Visit Diagnoses Not on filedocumented in this encounter Additional Health Concerns Infection Onset Date Last Indicated Resolved Time COVID-19 Rule Out 12/13/2023 12/13/2023 12/13/2023 8:54 AM RESERVATIONIST COVID-19 Rule Out 08/30/2024 08/30/2024 08/30/2024 8:14 AM RESERVATIONIST COVID-19 Rule Out 11/03/2024 11/03/2024 11/03/2024 10:48 AM RESERVATIONIST documented as of this encounter Care Teams Branding Specialist Relationship Specialty [place] [address] [place] [address] PCP - General PHYSICIAN OFFENSIVE COORDINATOR 02/03/21 06/06/23 [place] [address] [address] [place] [address] PCP - General FAMILY PRACTICE 06/07/23 [place] [address] [place] [address] NEUROLOGICAL SURGERY 11/24/21 documented as of this encounter
--- OUTSIDE RECORDS SUMMARY | 2025-05-30 05:00 | XMS_ITS | Encounter Summary ---
Author Organization [facility] Address [address] [place] [address] Care Team Providers Care Mail Delivery Supervisor Name Role Phone Viv Hamm Primary Care Provider [phone] Alberto Avendano MD Unavailable [phone] Kylee Villanueva MD Primary Care Provider [phone] Encounter Details Date Type Department Care Team (Late st Contact Info) Description 09/09/2021 PingCo[employer]hart Message Enc [facility] Medical Group Family & Internal Medicine [facility] [address] [place] [address] Viv Hamm [place] [id number] [place] [address] Back Issues Social History Tobacco Use [...] Sex Assigned at Female 11/14/2024 2:54 PM RESEARCH NEUROPSYCHOLOGIST Legal Sex Female 11:06 AM CDT Gender Identity Female 05/11/2025 1:56 PM CDT Sexual Orientation Not on file COVID-19 Exposure Response Date Recorded In the last month, have you been in contact with someone who was confirmed or suspected to have Coronavirus / COVID-19? No / Unsure 09/12/2021 10:30 AM RESEARCH NEUROPSYCHOLOGIST documented as of this encounter Plan of Treatment Upcoming Encounters Date Type Department Care Team (Latest Contact Info) Description 06/07/2025 5:00 PM CDT Hospital Encounter [facility] Interventional [place] [address] [id number] Elizabeth Ryder MD Three [address] [address] 06/07/2025 5:00 PM CDT - 06/07/2025 5:20 PM CDT Surgery [facility] Interventional [place] [address] [id number] Elizabeth Ryder MD Three [address] [address] INJECTION TRIGGER POINT-cervivcal/th oracic 06/11/2025 2:40 PM CDT Office Visit [facility] Medical Group Orthopedic & Sports Medicine - [place] [address] [place] [address] Reynaldo Bunch MD [address] [place] [address] 07/13/2025 9:00 AM CDT Hospital Encounter [facility] [place]ventional [place] [address] [id number] Elizabeth Ryder MD Three [facility] [address] [place] [address] 07/13/2025 9:00 AM CDT - 07/13/2025 9:20 AM CDT Surgery [facility] Interventional [place] [address] [id number] Elizabeth Ryder MD Three [facility] [address] [place] [address] INJECTION EPIDURAL STEROID [id number] 07/13/2025 11:00 AM CDT Office Visit [facility] Multispecialty Care - [facility] 3 [facility] [address] [place] [address] Esau Hoff MD 3 [facility] [address] [place] [address] 09/13/2025 7:40 AM RESEARCH NEUROPSYCHOLOGIST Office Visit [facility] Medical [facility] Family & Internal Medicine - [address] [address] Kylee Villanueva MD [address] [place] [address] [place], [place] [id number] Scheduled Procedures Name Priority Associated Diagnoses Date/Ti me INJECTION TRIGGER POINT Myofascial pain 06/07/2025 5:00 PM CDT INJECTION EPIDURAL STEROID CERVICAL Cervical radiculopathy 07/13/2025 9:00 AM CDT documented as of this encounter Visit Diagnoses Not on filedocumented in this encounter Additional Health Concerns Infection Onset Date Last Indicated Resolved Time COVID-19 Rule Out 12/13/2023 12/13/2023 12/13/2023 8:54 AM RESEARCH NEUROPSYCHOLOGIST COVID-19 Rule Out 08/30/2024 08/30/2024 08/30/2024 8:14 AM RESEARCH NEUROPSYCHOLOGIST COVID-19 Rule Out 11/03/2024 11/03/2024 11/03/2024 10:48 AM RESEARCH NEUROPSYCHOLOGIST documented as of this encounter Care Teams Mail Delivery Supervisor Relationship Specialty [place] [address] [place] [address] PCP - General PHYSICIAN CHEMICAL LIBRARIAN 02/03/21 06/06/23 [place] [address] [address] [place] [address] PCP - General FAMILY PRACTICE 06/07/23 [place] [address] [place] [address] NEUROLOGICAL SURGERY 11/24/21 documented as of this encounter
--- OUTSIDE RECORDS SUMMARY | 2025-05-30 05:00 | XMS_ITS | Encounter Summary ---
Author Organization [facility] Address [address] [place] [address] Care Team Providers Care Para Educator Name Role Phone Viv Hamm Primary Care Provider [phone] Alberto Avendano MD Unavailable [phone] Kylee Villanueva MD Primary Care Provider [phone] Encounter Details Date Type Department Care Team (Late st Contact Info) Description 04/08/2023 modulR Message Enc [facility] Interventional [place] [address] [id number] Concha Albert NP 3 [facility] [address] [place] [address] [phone] (Work) Question about steroid injection [...] Sex Assigned at Female 11/14/2024 2:54 PM INTERLIBRARY LOAN SERVICES LIBRARIAN Legal Sex Female 11:06 AM CDT Gender [...] Description 06/07/2025 5:00 PM CDT Hospital Encounter [facility] Interventional [place] [address] [id number] Elizabeth Ryder MD Three [facility] [address] [place] [address] 06/07/2025 5:00 PM CDT - 06/07/2025 5:20 PM CDT Surgery [facility] Interventional [place] [address] [id number] Elizabeth Ryder MD Three [facility] [address] [place] [address] INJECTION TRIGGER POINT-cervivcal/th oracic 06/11/2025 2:40 PM CDT Office Visit [facility] Medical Group Orthopedic & Sports Medicine - [place] [address] [place], [place] 996739 Reynaldo Bunch MD [address] [place] [address] 07/13/2025 9:00 AM CDT Hospital Encounter [facility] Interventional [facility] [place] [address] [id number] Elizabeth Ryder MD Three [facility] [address] [place] [address] 07/13/2025 9:00 AM CDT - 07/13/2025 9:20 AM CDT Surgery [facility] Interventional Pain [place] [address] [id number] Elizabeth Ryder MD Three [facility] [address] [place] [address] INJECTION EPIDURAL STEROID [id number] 07/13/2025 11:00 AM CDT Office Visit [facility] Multispecialty Care - [facility] 3 [facility], [address] [place] [address] Esau Hoff MD 3 [facility] [address] [place] [address] 09/13/2025 7:40 AM INTERLIBRARY LOAN SERVICES LIBRARIAN Office Visit [facility] Medical Group Family & Internal Medicine - [address] [phone] Kylee Villanueva MD [address] [place] [address] [place] [address] [phone] Scheduled Procedures Name Priority Associated Diagnoses Date/Ti me INJECTION TRIGGER POINT Myofascial pain 06/07/2025 5:00 PM CDT INJECTION EPIDURAL STEROID CERVICAL Cervical radiculopathy 07/13/2025 9:00 AM CDT documented as of this encounter Visit Diagnoses Not on filedocumented in this encounter Additional Health Concerns Infection Onset Date Last Indicated Resolved Time COVID-19 Rule Out 12/13/2023 12/13/2023 12/13/2023 8:54 AM INTERLIBRARY LOAN SERVICES LIBRARIAN COVID-19 Rule Out 08/30/2024 08/30/2024 08/30/2024 8:14 AM INTERLIBRARY LOAN SERVICES LIBRARIAN COVID-19 Rule Out 11/03/2024 11/03/2024 11/03/2024 10:48 AM INTERLIBRARY LOAN SERVICES LIBRARIAN documented as of this encounter Care Teams Para Educator Relationship Specialty [place] [address] [place] [address] PCP - General PHYSICIAN BUSINESS ADMINISTRATION INSTRUCTOR 02/03/21 06/06/23 [place] [address] [address] [place] [address] PCP - General FAMILY PRACTICE 06/07/23 [place] [address] [place] [address] NEUROLOGICAL SURGERY 11/24/21 documented as of this encounter
--- OUTSIDE RECORDS SUMMARY | 2025-05-30 05:00 | XMS_ITS | Encounter Summary ---
Author Organization [facility] Address [facility] [place] [address] Care Team Providers Care Oral Pathologist Name Role Phone Viv Hamm Primary Care Provider [phone] Alberto Avendano MD Unavailable [phone] Kylee Villanueva MD Primary Care Provider [phone] Encounter Details Date Type Department Care Team (Latest Contact Info) Description 02/19/2023 MyChart Message Enc [facility] Medical Group Multispecialty Care - [facility] 3 [facility] [address], [address] [place] [address] Shane Noble MD 1 [place] [address] Lumbar MRI denied by insurance Social History [...] Sex Assigned at Female 11/14/2024 2:54 PM CLINIC LPN Legal Sex Female 11:06 AM CDT Gender [...] [facility] [place] [address] [id number] Elizabeth Ryder MD [address] [address] 06/07/2025 5:00 PM CDT - 06/07/2025 5:20 PM CDT Surgery [facility] [place] [address] [id number] Elizabeth Ryder MD Three [address] [address] INJECTION TRIGGER POINT-cervivcal/th oracic 06/11/2025 2:40 PM CDT Office Visit [facility] Orthopedic & Sports Medicine - [place] [address] [place] [address] Reynaldo Bunch MD 670 [place] [address] 07/13/2025 9:00 AM CDT Hospital Encounter [facility] Interventional [facility] Management [place] [address] [id number] Elizabeth Ryder MD Three [facility] [address] [place] [address] 07/13/2025 9:00 AM CDT - 07/13/2025 9:20 AM CDT Surgery [facility] Interventional Pain Management [place] [address] [id number] Elizabeth Ryder MD Three [facility] [address] [place] [address] INJECTION EPIDURAL STEROID [id number] 07/13/2025 11:00 AM CDT Office Visit [facility] Multispecialty Care - [facility] 3 [facility] [address] [place] [address] Esau Hoff MD 3 [facility] [address] [place] [address] 09/13/2025 7:40 AM CLINIC LPN Office Visit [facility] Medical [facility] Family & Internal Medicine - [address] [address] Kylee Villanueva MD [address] [place] [address] [place] [address] Scheduled Procedures Name Priority Associated Diagnoses Date/Ti me INJECTION TRIGGER POINT Myofascial pain 06/07/2025 5:00 PM CDT INJECTION EPIDURAL STEROID CERVICAL Cervical radiculopathy 07/13/2025 9:00 AM CDT documented as of this encounter Visit Diagnoses Not on filedocumented in this encounter Additional Health Concerns Infection Onset Date Last Indicated Resolved Time COVID-19 Rule Out 12/13/2023 12/13/2023 12/13/2023 8:54 AM CLINIC LPN COVID-19 Rule Out 08/30/2024 08/30/2024 08/30/2024 8:14 AM CLINIC LPN COVID-19 Rule Out 11/03/2024 11/03/2024 11/03/2024 10:48 AM CLINIC LPN documented as of this encounter Care Teams Oral Pathologist Relationship Specialty [place] [address] [place] [address] PCP - General PHYSICIAN MAIL PROCESSING MACHINE OPERATOR 02/03/21 06/06/23 [place] [address] [address] [place] [address] PCP - General FAMILY PRACTICE 06/07/23 [place] [address] [place] [address] NEUROLOGICAL SURGERY 11/24/21 documented as of this encounter
--- OUTSIDE RECORDS SUMMARY | 2025-05-30 05:00 | XMS_ITS | Encounter Summary ---
Author Organization [facility] Address [address] [place] [address] Care Team Providers Care Dowel Sticker Operator Name Role Phone Viv Hamm Primary Care Provider [phone] Alberto Avendano MD Unavailable [phone] Kylee Villanueva MD Primary Care Provider [phone] Encounter Details Date Type Department Care Team (Late st Contact Info) Description 08/26/2021 Touchotelhart Message Enc [facility] Medical Group Family & Internal Medicine [facility] [address] [place] [address] Viv Hamm [place] [id number] [place] [address] RE: Follow Up/Update Social History Tobacco [...] Sex Assigned at Female 11/14/2024 2:54 PM FIRER LOCOMOTIVE Legal Sex Female 11:06 AM CDT Gender [...] Description 06/07/2025 5:00 PM CDT Hospital Encounter [facility] Interventional [place] [address] [id number] Elizabeth Ryder MD Three [address] [address] 06/07/2025 5:00 PM CDT - 06/07/2025 5:20 PM CDT Surgery [facility] Interventional [place] [address] [id number] Elizabeth Ryder MD Three [address] [address] INJECTION TRIGGER POINT-cervivcal/th oracic 06/11/2025 2:40 PM CDT Office Visit [facility] Medical Group Orthopedic & Sports Medicine - [place] [address] [place] [address] Reynaldo Bunch MD [address] [place] [address] 07/13/2025 9:00 AM CDT Hospital Encounter [facility] [place] [address] [id number] Elizabeth Ryder MD Three [facility] [address] [place] [address] 07/13/2025 9:00 AM CDT - 07/13/2025 9:20 AM CDT Surgery [facility] Interventional [place] [address] [id number] Elizabeth Ryder MD Three [facility] [address] [place] [address] INJECTION EPIDURAL STEROID [id number] 07/13/2025 11:00 AM CDT Office Visit [facility] Multispecialty Care - [facility] 3 [facility] [address] [place] [address] Esau Hoff MD 3 [facility] [address] [place] [address] 09/13/2025 7:40 AM FIRER LOCOMOTIVE Office Visit [facility] Medical [facility] Family & Internal Medicine - [address] [address] Kylee Villanueva MD [address] [place] [address] [place] [address] [phone] Scheduled Procedures Name Priority Associated Diagnoses Date/Ti me INJECTION TRIGGER POINT Myofascial pain 06/07/2025 5:00 PM CDT INJECTION EPIDURAL STEROID CERVICAL Cervical radiculopathy 07/13/2025 9:00 AM CDT documented as of this encounter Visit Diagnoses Not on filedocumented in this encounter Additional Health Concerns Infection Onset Date Last Indicated Resolved Time COVID-19 Rule Out 12/13/2023 12/13/2023 12/13/2023 8:54 AM FIRER LOCOMOTIVE COVID-19 Rule Out 08/30/2024 08/30/2024 08/30/2024 8:14 AM FIRER LOCOMOTIVE COVID-19 Rule Out 11/03/2024 11/03/2024 11/03/2024 10:48 AM FIRER LOCOMOTIVE documented as of this encounter Care Teams Dowel Sticker Operator Relationship Specialty [place] [address] [place] [address] PCP - General PHYSICIAN PATTERN CHECKER 02/03/21 06/06/23 [place] [address] [address] [place] [address] PCP - General FAMILY PRACTICE 06/07/23 [place] [address] [place] [address] NEUROLOGICAL SURGERY 11/24/21 documented as of this encounter
--- OUTSIDE RECORDS SUMMARY | 2025-05-30 05:00 | XMS_ITS | Encounter Summary ---
Author Organization [facility] Address [address] [place] [address] Care Team Providers Care Merchandise Collector Name Role Phone Alberto Avendano MD Unavailable [phone] Kylee Villanueva MD Primary Care Provider [phone] Encounter Details Date Type Department Care Team (Late st Contact Info) Description 07/07/2023 Modular Robotics Message Enc [facility] Medical Group Orthopedic & Sports Medicine [address] [address] [place] [facility] Provider apt Social History Tobacco Use Types [...] Assigned at Female 11/14/2024 2:54 PM SALES CONTRACTOR Legal Sex Female 11:06 AM CDT Gender Identity Female 05/11/2025 1:56 PM CDT Sexual Orientation Not on file documented as of this encounter Plan of Treatment Upcoming Encounters Date Type Department Care Team (Latest Contact Info) Description 06/07/2025 5:00 PM CDT Hospital Encounter [facility] Interventional [place] [address] [id number] Elizabeth Ryder MD Three [address] [address] 06/07/2025 5:00 PM CDT - 06/07/2025 5:20 PM CDT Surgery [facility] [place] [address] [id number] Elizabeth Ryder MD Three [address] [address] INJECTION TRIGGER POINT-cervivcal/th oracic 06/11/2025 2:40 PM CDT Office Visit [facility] Medical Group Orthopedic & Sports Medicine - [place] [address] [place] [address] Reynaldo Bunch MD 670 [place] [address] 07/13/2025 9:00 AM CDT Hospital Encounter [facility] Interventional [place] [address] [id number] Elizabeth Ryder MD Three [address] [address] 07/13/2025 9:00 AM CDT - 07/13/2025 9:20 AM CDT Surgery [facility] Interventional Pain Management [place] [address] [id number] Elizabeth Ryder MD Three [facility] [address] [place] [address] INJECTION EPIDURAL STEROID [id number] 07/13/2025 11:00 AM CDT Office Visit [facility] Multispecialty Care - [facility] 3 [facility] [address] [place] [address] Esau Hoff MD 3 [facility] [address] [place] [address] 09/13/2025 7:40 AM SALES CONTRACTOR Office Visit [facility] Family & Internal Medicine [address] [address] Kylee Villanueva MD [address] [place] [address] [place] [address] Scheduled Procedures Name Priority Associated Diagnoses Date/Ti me INJECTION TRIGGER POINT Myofascial pain 06/07/2025 5:00 PM CDT INJECTION EPIDURAL STEROID CERVICAL Cervical radiculopathy 07/13/2025 9:00 AM CDT documented as of this encounter Visit Diagnoses Not on filedocumented in this encounter Additional Health Concerns Infection Onset Date Last Indicated Resolved Time COVID-19 Rule Out 12/13/2023 12/13/2023 12/13/2023 8:54 AM SALES CONTRACTOR COVID-19 Rule Out 08/30/2024 08/30/2024 08/30/2024 8:14 AM SALES CONTRACTOR COVID-19 Rule Out 11/03/2024 11/03/2024 11/03/2024 10:48 AM SALES CONTRACTOR documented as of this encounter Care Teams Merchandise Collector Relationship Specialty Start [place] [address] [address] [place] [address] PCP - General FAMILY PRACTICE 06/07/23 Alberto Avendano MD NEUROLOGICAL SURGERY 11/24/21 documented as of this encounter
--- OUTSIDE RECORDS SUMMARY | 2025-05-30 05:00 | XMS_ITS | Encounter Summary ---
Author Organization [facility] Address [facility] [place] [address] Care Team Providers Care Gas Cutting Machine Operator Name Role Phone Viv Hamm Primary Care Provider [phone] Alberto Avendano MD Unavailable [phone] Kylee Villanueva MD Primary Care Provider [phone] Encounter Details Date Type Department Care Team (Late st Contact Info) Description 07/01/2021 MyChart Message Enc [facility] Medical Group General Surgery [address], [address] [place] [address] Tracy Godoy MD [address] [address] Test Results Social History Tobacco [...] Sex Assigned at Female 11/14/2024 2:54 PM TRANSPORT PILOT Legal Sex Female 11:06 AM CDT Gender [...] Encounter [facility] Interventional [place] [address] [id number] Elizabeth Ryder MD Three [facility] [address] [place] [address] [phone] 06/07/2025 5:00 PM CDT - 06/07/2025 5:20 PM CDT Surgery [facility] Interventional [place] [address] [id number] Elizabeth Ryder MD Three [facility] [address] [place] [address] INJECTION TRIGGER POINT-cervivcal/th oracic 06/11/2025 2:40 PM CDT Office Visit [facility] Medical Group Orthopedic & Sports Medicine - [place] [address] [place] [address] Reynaldo Bunch MD [address] [place] [address] 07/13/2025 9:00 AM CDT Hospital Encounter [facility] Interventional Pain [place] [address] [id number] Elizabeth Ryder MD Three [facility] [address] [place] [address] 07/13/2025 9:00 AM CDT - 07/13/2025 9:20 AM CDT Surgery [facility] Interventional Pain [place] [address] [id number] Elizabeth Ryder MD Three [facility] [address] [place] [address] INJECTION EPIDURAL STEROID [id number] 07/13/2025 11:00 AM CDT Office Visit [facility] Medical Group Multispecialty Care - [facility] 3 [facility], [address] [place] [address] Esau Hoff MD 3 [facility] [address] [place] [address] 09/13/2025 7:40 AM TRANSPORT PILOT Office Visit [facility] Medical Group Family & Internal Medicine - [address] [address] Kylee Villanueva MD [address] [place] [address] [place] [address] [phone] Scheduled Procedures Name Priority Associated Diagnoses Date/Ti me INJECTION TRIGGER POINT Myofascial pain 06/07/2025 5:00 PM CDT INJECTION EPIDURAL STEROID CERVICAL Cervical radiculopathy 07/13/2025 9:00 AM CDT documented as of this encounter Visit Diagnoses Not on filedocumented in this encounter Additional Health Concerns Infection Onset Date Last Indicated Resolved Time COVID-19 Rule Out 12/13/2023 12/13/2023 12/13/2023 8:54 AM TRANSPORT PILOT COVID-19 Rule Out 08/30/2024 08/30/2024 08/30/2024 8:14 AM TRANSPORT PILOT COVID-19 Rule Out 11/03/2024 11/03/2024 11/03/2024 10:48 AM TRANSPORT PILOT documented as of this encounter Care Teams Gas Cutting Machine Operator Relationship Specialty [place] [address] [facility] [place] [address] PCP - General PHYSICIAN IMPORT/EXPORT CLERK 02/03/21 06/06/23 [place] [address] [facility] [address] PCP - General FAMILY PRACTICE 06/07/23 [place] [address] [place] [place] [address] NEUROLOGICAL SURGERY 11/24/21 documented as of this encounter
--- OUTSIDE RECORDS SUMMARY | 2025-05-30 05:00 | XMS_ITS | Encounter Summary ---
Author Organization [facility] Address [address] [place] [address] Care Team Providers Care Pacu Nurse Name Role Phone Viv Hamm Primary Care Provider [phone] Alberto Avendano MD Unavailable [phone] Kylee Villanueva MD Primary Care Provider [phone] Encounter Details Date Type Department Care Team (Late st Contact Info) Description 09/24/2021 MyChart Message Enc [facility] Medical Group Family & Internal Medicine [facility] [address] [place] [address] Viv Hamm [place] [id number] [place] [address] B12 Blood Test Social History Tobacco [...] Sex Assigned at Female 11/14/2024 2:54 PM AIR DEFENSE SPECIALIST Legal Sex Female 11:06 AM CDT Gender Identity Female 05/11/2025 1:56 PM CDT Sexual Orientation Not on file COVID-19 Exposure Response Date Recorded In the last month, have you been in contact with someone who was confirmed or suspected to have Coronavirus / COVID-19? No / Unsure 09/23/2021 8:30 AM AIR DEFENSE SPECIALIST documented as of this encounter Plan of Treatment Upcoming Encounters Date Type Department Care Team (Latest Contact Info) Description 06/07/2025 5:00 PM CDT Hospital Encounter [facility] Interventional [place] [address] [id number] Elizabeth Ryder MD Three [address] [address] 06/07/2025 5:00 PM CDT - 06/07/2025 5:20 PM CDT Surgery [facility] Interventional [place] [address] [id number] Elizabeth Ryder MD Three [address] [address] INJECTION TRIGGER POINT-cervivcal/th oracic 06/11/2025 2:40 PM CDT Office Visit [facility] Medical Group Orthopedic & Sports Medicine - [place] [address] [place] [address] Reynaldo Bunch MD [address] [place] [address] 07/13/2025 9:00 AM CDT Hospital Encounter [facility] Interventional [place] [address] [id number] Elizabeth Ryder MD Three [facility] [address] [place] [address] 07/13/2025 9:00 AM CDT - 07/13/2025 9:20 AM CDT Surgery [facility] Interventional [place] [address] [id number] Elizabeth Ryder MD Three [facility] [address] [place] [address] INJECTION EPIDURAL STEROID [id number] 07/13/2025 11:00 AM CDT Office Visit [facility] Multispecialty Care - [facility] 3 [facility] [address] [place] [address] Esau Hoff MD 3 [facility] [address] [place] [address] 09/13/2025 7:40 AM AIR DEFENSE SPECIALIST Office Visit [facility] Medical [facility] Family & Internal Medicine - [address] [address] Kylee Villanueva MD [address] [place] [address] [place] [address] Scheduled Procedures Name Priority Associated Diagnoses Date/Ti me INJECTION TRIGGER POINT Myofascial pain 06/07/2025 5:00 PM CDT INJECTION EPIDURAL STEROID CERVICAL Cervical radiculopathy 07/13/2025 9:00 AM CDT documented as of this encounter Visit Diagnoses Not on filedocumented in this encounter Additional Health Concerns Infection Onset Date Last Indicated Resolved Time COVID-19 Rule Out 12/13/2023 12/13/2023 12/13/2023 8:54 AM AIR DEFENSE SPECIALIST COVID-19 Rule Out 08/30/2024 08/30/2024 08/30/2024 8:14 AM AIR DEFENSE SPECIALIST COVID-19 Rule Out 11/03/2024 11/03/2024 11/03/2024 10:48 AM AIR DEFENSE SPECIALIST documented as of this encounter Care Teams Pacu Nurse Relationship Specialty [place] [address] [place] [address] PCP - General PHYSICIAN ASPHALT MACHINE OPERATOR 02/03/21 06/06/23 [place] [address] [address] [place] [address] PCP - General FAMILY PRACTICE 06/07/23 [place] [address] [place] [address] NEUROLOGICAL SURGERY 11/24/21 documented as of this encounter
--- OUTSIDE RECORDS SUMMARY | 2025-05-30 05:00 | XMS_ITS | Encounter Summary ---
Author Organization [facility] Address [facility] [place] [address] Care Team Providers Care Soda Fountain Manager Name Role Phone Viv Hamm Primary Care Provider [phone] Alberto Avendano MD Unavailable [phone] Kylee Villanueva MD Primary Care Provider [phone] Encounter Details Date Type Department Care Team (Late st Contact Info) Description 10/13/2021 [employer]Plaza Message Enc [facility] Medical Group Multispecialty Care - [facility] 3 [facility], [address] [place] [address] Kell, [facility] Provider Results Social History Tobacco Use Types [...] Sex Assigned at Female 11/14/2024 2:54 PM MICROARRAY OPERATIONS VICE PRESIDENT Legal Sex Female 11:06 AM CDT Gender Identity Female 05/11/2025 1:56 PM CDT Sexual Orientation Not on file COVID-19 Exposure Response Date Recorded In the last month, have you been in contact with someone who was confirmed or suspected to have Coronavirus / COVID-19? No / Unsure 10/16/2021 12:10 PM MICROARRAY OPERATIONS VICE PRESIDENT documented as of this encounter Plan of Treatment Upcoming Encounters Date Type Department Care Team (Latest Contact Info) Description 06/07/2025 5:00 PM CDT Hospital Encounter [facility] Interventional [place] [address] [id number] Elizabeth Ryder MD [address] [address] 06/07/2025 5:00 PM CDT - 06/07/2025 5:20 PM CDT Surgery [facility] [place]ventional [place] [address] [id number] Elizabeth Ryder MD [address] [address] INJECTION TRIGGER POINT-cervivcal/th oracic 06/11/2025 2:40 PM CDT Office Visit [facility] Medical Group Orthopedic & Sports Medicine - [place] [address] [place] [address] Reynaldo Bunch MD [address] [place] [address] 07/13/2025 9:00 AM CDT Hospital Encounter [facility] Interventional [place] [address] [id number] Elizabeth Ryder MD [address] [address] 07/13/2025 9:00 AM CDT - 07/13/2025 9:20 AM CDT Surgery [facility] Interventional Pain Management [place] [address] [id number] Elizabeth Ryder MD Three [facility] [address] [place] [address] INJECTION EPIDURAL STEROID [id number] 07/13/2025 11:00 AM CDT Office Visit [facility] Multispecialty Care - [facility] 3 [facility] [address] [place] [address] Esau Hoff MD 3 [facility] [address] [place] [address] 09/13/2025 7:40 AM MICROARRAY OPERATIONS VICE PRESIDENT Office Visit [facility] Medical Group Family & Internal Medicine - [address] [address] Kylee Villanueva MD [address] [place] [address] [place] [address] [phone] Scheduled Procedures Name Priority Associated Diagnoses Date/Ti me INJECTION TRIGGER POINT Myofascial pain 06/07/2025 5:00 PM CDT INJECTION EPIDURAL STEROID CERVICAL Cervical radiculopathy 07/13/2025 9:00 AM CDT documented as of this encounter Visit Diagnoses Not on filedocumented in this encounter Additional Health Concerns Infection Onset Date Last Indicated Resolved Time COVID-19 Rule Out 12/13/2023 12/13/2023 12/13/2023 8:54 AM MICROARRAY OPERATIONS VICE PRESIDENT COVID-19 Rule Out 08/30/2024 08/30/2024 08/30/2024 8:14 AM MICROARRAY OPERATIONS VICE PRESIDENT COVID-19 Rule Out 11/03/2024 11/03/2024 11/03/2024 10:48 AM MICROARRAY OPERATIONS VICE PRESIDENT documented as of this encounter Care Teams Soda Fountain Manager Relationship Specialty [place] [address] [place] [place] [address] PCP - General PHYSICIAN GIN POLE OPERATOR 02/03/21 06/06/23 [place] [address] [place] [address] PCP - General FAMILY PRACTICE 06/07/23 [place] [address] [place] [address] NEUROLOGICAL SURGERY 11/24/21 documented as of this encounter
--- OUTSIDE RECORDS SUMMARY | 2025-05-30 05:00 | XMS_ITS | Encounter Summary ---
Author Organization [facility] Address [address] [place] [address] Care Team Providers Care Track Maintainer Name Role Phone Viv Hamm Primary Care Provider [phone] Alberto Avendano MD Unavailable [phone] Kylee Villanueva MD Primary Care Provider [phone] Encounter Details Date Type Department Care Team (Late st Contact Info) Description 06/09/2021 MyChart Message Enc [facility] Medical Group Family & Internal Medicine [facility] [address] [place] [address] [place] Hamm [place] [id number] [place] [address] RE: Test Results Social History Tobacco [...] Sex Assigned at Female 11/14/2024 2:54 PM GAS METER MECHANIC Legal Sex Female 11:06 AM CDT [...] [facility] Interventional [place] [address] [id number] Elizabeth Ryder MD Three [address] [address] 06/07/2025 5:00 PM CDT - 06/07/2025 5:20 PM CDT Surgery [facility] Interventional [place] [address] [id number] Elizabeth Ryder MD Three [address] [address] INJECTION TRIGGER POINT-cervivcal/th oracic 06/11/2025 2:40 PM CDT Office Visit [facility] Medical Group Orthopedic & Sports Medicine - [place] [address] [place] [address] Reynaldo Bunch MD [address] [place] [address] 07/13/2025 9:00 AM CDT Hospital Encounter [facility] Interventional [place] [address] [id number] Elizabeth Ryder MD Three [facility] [address] [place] [address] 07/13/2025 9:00 AM CDT - 07/13/2025 9:20 AM CDT Surgery [facility] Interventional [place] [address] [id number] Elizabeth Ryder MD Three [facility] [address] [place] [address] INJECTION EPIDURAL STEROID [id number] 07/13/2025 11:00 AM CDT Office Visit [facility] Multispecialty Care - [facility] 3 [facility] [address] [place] [address] Esau Hoff MD 3 [facility] [address] [place] [address] 09/13/2025 7:40 AM GAS METER MECHANIC Office Visit [facility] Medical [facility] Family & Internal Medicine - [address] [address] Kylee Villanueva MD [address] [place] [address] [place] [address] [phone] Scheduled Procedures Name Priority Associated Diagnoses Date/Ti me INJECTION TRIGGER POINT Myofascial pain 06/07/2025 5:00 PM CDT INJECTION EPIDURAL STEROID CERVICAL Cervical radiculopathy 07/13/2025 9:00 AM CDT documented as of this encounter Visit Diagnoses Not on filedocumented in this encounter Additional Health Concerns Infection Onset Date Last Indicated Resolved Time COVID-19 Rule Out 12/13/2023 12/13/2023 12/13/2023 8:54 AM GAS METER MECHANIC COVID-19 Rule Out 08/30/2024 08/30/2024 08/30/2024 8:14 AM GAS METER MECHANIC COVID-19 Rule Out 11/03/2024 11/03/2024 11/03/2024 10:48 AM GAS METER MECHANIC documented as of this encounter Care Teams Track Maintainer Relationship Specialty [place] [address] [place] [address] PCP - General PHYSICIAN PLUMBER AND TINNER 02/03/21 06/06/23 [place] [address] [address] [place] [address] PCP - General FAMILY PRACTICE 06/07/23 [place] [address] [place] [address] NEUROLOGICAL SURGERY 11/24/21 documented as of this encounter
--- OUTSIDE RECORDS SUMMARY | 2025-05-30 05:00 | XMS_ITS | Encounter Summary ---
Author Organization [facility] Address [address] [place] [address] Care Team Providers Care Beauty Specialist Name Role Phone Viv Hamm Primary Care Provider [phone] Alberto Avendano MD Unavailable [phone] Kylee Villanueva MD Primary Care Provider [phone] Encounter Details Date Type Department Care Team (Late st Contact Info) Description 10/15/2021 MyChart Message Enc [facility] Medical Group Family & Internal Medicine [facility] [address] [place] [address] Viv Hamm [place] [id number] [place] [address] Blood test and Urinalysis Questions Social [...] Sex Assigned at Female 11/14/2024 2:54 PM BULK LOADER Legal Sex Female 11:06 AM CDT Gender Identity Female 05/11/2025 1:56 PM CDT Sexual Orientation Not on file COVID-19 Exposure Response Date Recorded In the last month, have you been in contact with someone who was confirmed or suspected to have Coronavirus / COVID-19? No / Unsure 10/16/2021 12:10 PM BULK LOADER documented as of this encounter Progress Notes * Aanbell Vallecillo MA - 10/20/2021 2:34 PM CST Ok per Viv to have UA with labs on 10/21/21. Order placed for lab downstairs. Pt informed. LOADER documented in this encounter Plan of Treatment Upcoming Encounters Date Type Department Care Team (Latest Contact Info) Description 06/07/2025 5:00 PM CDT Hospital Encounter [facility] Interventional [place] [address] [id number] Elizabeth Ryder MD Three [facility] [address] [place] [address] 06/07/2025 5:00 PM CDT - 06/07/2025 5:20 PM CDT Surgery [facility] [place]ventional [place] [address] [id number] Elizbaeth Ryder MD Three [facility] [address] [place] [address] INJECTION TRIGGER POINT-cervivcal/th oracic 06/11/2025 2:40 PM CDT Office Visit [facility] Medical Group Orthopedic & Sports Medicine - [place] [address] [place] [address] Reynaldo Bunch MD [address] [place] [address] [place] [address] 07/13/2025 9:00 AM CDT Hospital Encounter [facility] Interventional [facility] [place] [address] [id number] Elizabeth Ryder MD Three [facility] [address] [place] [address] 07/13/2025 9:00 AM CDT - 07/13/2025 9:20 AM CDT Surgery [facility] [place]ventional [place] [address] [id number] Elizabeth Ryder MD Three [facility] [address] [place] [address] INJECTION EPIDURAL STEROID [id number] 07/13/2025 11:00 AM CDT Office Visit [facility] Medical [facility] Multispecialty Care - [facility] 3 [facility], [address] [place] [address] Esau Hoff MD 3 [facility] [address] [place] [address] 09/13/2025 7:40 AM BULK LOADER Office Visit [facility] Medical Group Family & Internal Medicine - [address] [address] Kylee Villanueva MD [address] [place] [address] [place] [address] Scheduled Procedures Name Priority Associated Diagnoses Date/Ti me INJECTION TRIGGER POINT Myofascial pain 06/07/2025 5:00 PM CDT INJECTION EPIDURAL STEROID CERVICAL Cervical radiculopathy 07/13/2025 9:00 AM CDT documented as of this encounter Visit Diagnoses Not on filedocumented in this encounter Additional Health Concerns Infection Onset Date Last Indicated Resolved Time COVID-19 Rule Out 12/13/2023 12/13/2023 12/13/2023 8:54 AM BULK LOADER COVID-19 Rule Out 08/30/2024 08/30/2024 08/30/2024 8:14 AM BULK LOADER COVID-19 Rule Out 11/03/2024 11/03/2024 11/03/2024 10:48 AM BULK LOADER documented as of this encounter Care Teams Beauty Specialist Relationship Specialty [place] [address] [place] [address] PCP - General PHYSICIAN STRUCTURAL IRONWORKER 02/03/21 06/06/23 [place] [address] [facility] [address] [place] [address] PCP - General FAMILY PRACTICE 06/07/23 [place] [address] [facility] [place] [address] NEUROLOGICAL SURGERY 11/24/21 documented as of this encounter
--- OUTSIDE RECORDS SUMMARY | 2025-05-30 05:00 | XMS_ITS | Encounter Summary ---
Author Organization [facility] Address [address] [place] [address] Care Team Providers Care Software Licensing Executive Name Role Phone Alberto Avendano MD Unavailable [phone] Kylee Villanueva MD Primary Care Provider [phone] Encounter Details Date Type Department Care Team (Late st Contact Info) Description 09/05/2023 [employer] Message Enc [facility] Interventional Pain [place] [address] [id number] Concha Albert NP 3 [facility] [address] [place] [phone] [phone] (Work) Insurance appeal Social History [...] Sex Assigned at Female 11/14/2024 2:54 PM DRAFTER ASSISTANT Legal Sex Female 11:06 AM CDT Gender Identity Female 05/11/2025 1:56 PM CDT Sexual Orientation Not on file documented as of this encounter Plan of Treatment Upcoming Encounters Date Type Department Care Team (Latest Contact Info) Description 06/07/2025 5:00 PM CDT Hospital Encounter [facility] Interventional [place] [address] [id number] Elizabeth Ryder MD [address] [address] 06/07/2025 5:00 PM CDT - 06/07/2025 5:20 PM CDT Surgery [facility] Interventional [place] [address] [id number] Elizabeth Ryder MD [address] [address] INJECTION TRIGGER POINT-cervivcal/th oracic 06/11/2025 2:40 PM CDT Office Visit [facility] Medical Group Orthopedic & Sports Medicine - [place] [address] [place] [address] Reynaldo Bunch MD [address] [place] [address] 07/13/2025 9:00 AM CDT Hospital Encounter [facility] Interventional [place] [address] [id number] Elizabeth Ryder MD [address] [address] 07/13/2025 9:00 AM CDT - 07/13/2025 9:20 AM CDT Surgery [facility] Interventional Pain [place] [address] [id number] Elizabeth Ryder MD Three [facility] [address] [place] [address] INJECTION EPIDURAL STEROID [id number] 07/13/2025 11:00 AM CDT Office Visit [facility] Medical [facility] Multispecialty Care - [facility] 3 [facility] [address] [place] [address] Esau Hoff MD 3 [facility] [address] [place] [address] 09/13/2025 7:40 AM DRAFTER ASSISTANT Office Visit [facility] Medical Group Family & Internal Medicine - [address] [address] Kylee Villanueva MD [address] [place] [address] [phone] Scheduled Procedures Name Priority Associated Diagnoses Date/Ti me INJECTION TRIGGER POINT Myofascial pain 06/07/2025 5:00 PM CDT INJECTION EPIDURAL STEROID CERVICAL Cervical radiculopathy 07/13/2025 9:00 AM CDT documented as of this encounter Visit Diagnoses Not on filedocumented in this encounter Additional Health Concerns Infection Onset Date Last Indicated Resolved Time COVID-19 Rule Out 12/13/2023 12/13/2023 12/13/2023 8:54 AM DRAFTER ASSISTANT COVID-19 Rule Out 08/30/2024 08/30/2024 08/30/2024 8:14 AM DRAFTER ASSISTANT COVID-19 Rule Out 11/03/2024 11/03/2024 11/03/2024 10:48 AM DRAFTER ASSISTANT documented as of this encounter Care Teams Software Licensing Executive Relationship Specialty Start [place] [address] [facility] [place], [place] [id number] PCP - General FAMILY PRACTICE 06/07/23 Alberto Avendano MD NEUROLOGICAL SURGERY 11/24/21 documented as of this encounter
--- OUTSIDE RECORDS SUMMARY | 2025-05-30 05:01 | XMS_ITS | Clinical Summary ---
Author Organization [facility] Address [address] [facility] [address] Care Team Providers Care Copy Center Specialist Name Role Phone Shane Noble MD Unavailable [phone] Kylee Villanueva MD Primary Care Provider Reynaldo Bunch MD Unavailable [phone] Allergies Active Allergy Reactions Criticality Noted [...] 12/26/2024 Assessment & Plan (12/26/2024 8:43 AM NUCLEAR LICENSING ENGINEER): CINTIA with some pain this morning. Now [...] (10/30/2022): Added automatically from request for surgery [id number] ALT (SGPT) level raised 04/10/2022 Calculus of gallbladder with out cholecystitis without obstruction 04/10/2022 Heartburn 03/17/2021 Hypertension 02/26/2021 GERD (gastroesophageal reflux disease) Allergies 02/26/2021 Environmental and seasonal allergies 02/26/2021 Encounters Date Type Department Care Team Description 2025 Telephone [facility] Pediatric Genetics [facility] 2nd [place] [address] [place] [address] Ale Thompson CGC PA temitope 05/25/2025 3:00 PM CDT Office Visit [facility] Pediatric [facility] 2nd [place] [address] [place] [address] Felix Tripathi MD Connective tissue disorder (Primary Dx) 05/16/2025 7:00 AM CDT Therapy [facility] Physical Therapy [address] [place] [phone] Wu Hicsk, DPT Chronic right shoulder pain (Primary Dx); Rotator cuff tear arthropathy of right shoulder 04/30/2025 7:00 AM CDT Therapy [facility] Physical [address] [address] Wu Hicks, DPT Chronic right shoulder pain (Primary Dx); Rotator cuff tear arthropathy of right shoulder 04/17/2025 10:00 AM CDT Therapy [facility] Physical Therapy [address] [place] [phone] Mariaelena Steve, SPRAY DRIER Chronic right shoulder pain (Primary Dx) 04/10/2025 10:00 AM CDT Therapy [facility] Physical Therapy [address] [place] [address] Mariaelena Steve, SPRAY DRIER Chronic right shoulder pain (Primary Dx) 03/30/2025 7:00 AM CDT Therapy [facility] Physical Therapy [address] [place] [address] Wu Hicks, DPT Chronic right shoulder pain (Primary Dx); Rotator cuff tear arthropathy of right shoulder 03/13/2025 10:00 AM CDT Therapy [facility] Physical Therapy [address] [place] [address] [address] [place] [address] Steve Mariaelena Fadi, SPRAY DRIER Chronic right shoulder pain (Primary Dx); Rotator cuff tear arthropathy of right shoulder 03/06/2025 8:30 AM CDT Therapy [facility] Physical Therapy [address] [place] [address] [address] [place] [address] Mariaelena Steve, SPRAY DRIER Chronic right shoulder pain (Primary Dx) 02/27/2025 1:45 PM CDT Therapy [facility] Physical Therapy [address] [facility] [address] [place] [address] Power Mariaelena Fadi, SPRAY DRIER Chronic right shoulder pain (Primary Dx); Rotator [...] 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 Not on file Not on file Not on fi le Obstetrics History Last Filed Vital Signs Vital Sign Reading Time Taken Comments Blood Pressure 128/72 05/25/2025 2:49 PM CDT Pulse 111 05/25/2025 2:49 PM CDT Temperature 36.3 C (97.4 F) 01/30/2025 7:57 AM CDT Respiratory Rate 20 09/11/2023 7:29 PM NUCLEAR LICENSING ENGINEER Oxygen Saturation 98% 05/25/2025 2:49 PM CDT [...] HEPATITIS PANEL, ACUTE Routine 12/14/2023 4:08 PM NUCLEAR LICENSING ENGINEER Cervicalgia from Last 3 Months or Most Recently Relevant to Health Maintenance Results * Hepatitis panel, acute Blood (12/14/2023 4:08 PM NUCLEAR LICENSING ENGINEER) Hep A IgM Nonreactive Nonreactive [facility] Hep B core IgM Nonreactive Nonreactive [facility] Hep C Ab Nonreactive Nonreactive [facility] Comment:Antibodies to HCV no t detected. Does NOT exclude the possibility of recent exposure to HCV. Current interpretive data was last revised on 22 HepBsAg Nonreactive Nonreactive [facility] Blood 12/14/2023 4:08 PM NUCLEAR LICENSING ENGINEER 12/14/2023 5:16 PM NUCLEAR LICENSING ENGINEER us Briana Clemens MD LAB MICROBIOLOGY - GENERAL ORDER MARCIA Final Result [facility] Department [place] [address] from Last 3 Months or Most Recently Relevant to Health Maintenance Insurance [facility] Care Teams Copy Center Specialist Relationship Specialty Start [place] [address] [address] [place] [address] PCP - General Family Medicine 07/12/23 Phil-Shane Mcneil MD [address] [address] Fellow Neurology 08/17/22 Reynaldo Bunch MD [address] [place] [address] Orthopedic Surgery 08/10/23
--- OUTSIDE RECORDS SUMMARY | 2025-05-30 05:01 | XMS_ITS | Encounter Summary ---
Author Organization [facility] Address [facility] [place] [address] Care Team Providers Care Stain Sprayer Name Role Phone Viv Hamm Primary Care Provider [phone] Alberto Avendano MD Unavailable [phone] Kylee Villanueva MD Primary Care Provider [phone] Encounter Details Date Type Department Care Team (Late st Contact Info) Description 09/09/2022 Truckilyhart Message Enc [facility] Medical Group Family & Internal Medicine [facility] [address] [place] [address] Viv Hamm [place] [id number] [place] [address] Life Insurance Request Social History Tobacco [...] Assigned at Female 11/14/2024 2:54 PM HOTEL SERVICE MANAGER Legal Sex Female 11:06 AM CDT Gender Identity Female 05/11/2025 1:56 PM CDT Sexual Orientation Not on file COVID-19 Exposure Response Date Recorded In the last 10 days, have yo u been in contact with someone who was confirmed or suspected to have Coronavirus/COVID-19? No / Unsure 09/07/2022 3:39 PM HOTEL SERVICE MANAGER documented as of this encounter Plan of Treatment Upcoming Encounters Date Type Department Care Team (Latest Contact Info) Description 06/07/2025 5:00 PM CDT Hospital Encounter [facility] Interventional [place] [address] [id number] Elizabeth Ryder MD Three [address] [address] 06/07/2025 5:00 PM CDT - 06/07/2025 5:20 PM CDT Surgery [facility] [place] [address] [id number] Elizabeth Ryder MD [address] [address] INJECTION TRIGGER POINT-cervivcal/th oracic 06/11/2025 2:40 PM CDT Office Visit [facility] Medical Group Orthopedic & Sports Medicine - [place] [address] [place] [address] Reynaldo Bunch MD [address] [place] [address] 07/13/2025 9:00 AM CDT Hospital Encounter [facility] Interventional [place] [address] [id number] Elizabeth Ryder MD Three [facility] [address] [place] [address] 07/13/2025 9:00 AM CDT - 07/13/2025 9:20 AM CDT Surgery [facility] Interventional Pain [place] [address] [id number] Elizabeth Ryder MD Three [facility] [address] [place] [address] INJECTION EPIDURAL STEROID [id number] 07/13/2025 11:00 AM CDT Office Visit [facility] Medical [facility] Multispecialty Care - [facility] 3 [facility], [address] [place] [address] Esau Hoff MD 3 [facility] [address] [place] [address] 09/13/2025 7:40 AM HOTEL SERVICE MANAGER Office Visit [facility] Medical Group Family & Internal Medicine - [address] [address] Kylee Villanueva MD [address] [place] [address] [place] [address] Scheduled Procedures Name Priority Associated Diagnoses Date/Ti me INJECTION TRIGGER POINT Myofascial pain 06/07/2025 5:00 PM CDT INJECTION EPIDURAL STEROID CERVICAL Cervical radiculopathy 07/13/2025 9:00 AM CDT documented as of this encounter Visit Diagnoses Not on filedocumented in this encounter Additional Health Concerns Infection Onset Date Last Indicated Resolved Time COVID-19 Rule Out 12/13/2023 12/13/2023 12/13/2023 8:54 AM HOTEL SERVICE MANAGER COVID-19 Rule Out 08/30/2024 08/30/2024 08/30/2024 8:14 AM HOTEL SERVICE MANAGER COVID-19 Rule Out 11/03/2024 11/03/2024 11/03/2024 10:48 AM HOTEL SERVICE MANAGER documented as of this encounter Care Teams Stain Sprayer Relationship Specialty [place] [address] [place] [address] PCP - General PHYSICIAN BEVERAGE MANAGER 02/03/21 06/06/23 [place] [address] [address] [place] [address] PCP - General FAMILY PRACTICE 06/07/23 [place] [address] [place] [address] NEUROLOGICAL SURGERY 11/24/21 documented as of this encounter
--- OUTSIDE RECORDS SUMMARY | 2025-05-30 05:01 | XMS_ITS | Encounter Summary ---
Author Organization [facility] Address [address] [place] [address] Care Team Providers Care Bead Inspector Name Role Phone Alberto Avendano MD Unavailable [phone] Kylee Villanueva MD Primary Care Provider [phone] Encounter Details Date Type Department Care Team (Late st Contact Info) Description 01/05/2025 Tipjoyt Message Enc [facility] Medical Group Orthopedic & Sports Medicine - [place] [address] [place] [address] Merrill Hammond MD [address] [place] [address] Earlier appt Social History Tobacco Use Types [...] Sex Assigned at Female 11/14/2024 2:54 PM OFFICE ELECTRICIAN Legal Sex Female 11:06 AM CDT Gender [...] Description 06/07/2025 5:00 PM CDT Hospital Encounter [facility] Interventional [place] [address] [id number] Elizabeth Ryder MD [address] [address] 06/07/2025 5:00 PM CDT - 06/07/2025 5:20 PM CDT Surgery [facility] [place] [address] [id number] Elizabeth Ryder MD Three [facility] [address] [place] [address] INJECTION TRIGGER POINT-cervivcal/th oracic 06/11/2025 2:40 PM CDT Office Visit [facility] Medical Group Orthopedic & Sports Medicine - [place] [address] [place] [address] Reynaldo Bunch MD [address] [place] [address] [place] [address] 07/13/2025 9:00 AM CDT Hospital Encounter [facility] Interventional Pain [place] [address] [id number] Elizabeth Ryder MD Three [facility] [address] [place] [address] 07/13/2025 9:00 AM CDT - 07/13/2025 9:20 AM CDT Surgery [facility] [place] [address] [id number] Elizabeth Ryder MD Three [facility] [address] [place] [address] INJECTION EPIDURAL STEROID [id number] 07/13/2025 11:00 AM CDT Office Visit [facility] Medical [facility] Multispecialty Care - [facility] 3 [facility], [address] [place] [address] Esau oHff MD 3 [facility] [address] [place] [address] 09/13/2025 7:40 AM OFFICE ELECTRICIAN Office Visit [facility] Medical Group Family & Internal Medicine - [address] [address] Kylee Villanueva MD [address] [place] [address] [place] [address] Scheduled Procedures Name Priority Associated Diagnoses Date/Ti me INJECTION TRIGGER POINT Myofascial pain 06/07/2025 5:00 PM CDT INJECTION EPIDURAL STEROID CERVICAL Cervical radiculopathy 07/13/2025 9:00 AM CDT documented as of this encounter Visit Diagnoses Not on filedocumented in this encounter Additional Health Concerns Assessment Noted Time PHQ-9 Depression Total Score: 2 12/11/19 25 1:50 PM OFFICE ELECTRICIAN documented as of this encounter Care Teams Bead Inspector Relationship Specialty [place] [address] [facility]. [address] [place] [address] PCP - General FAMILY PRACTICE 06/07/23 Alberto Avendano MD NEUROLOGICAL SURGERY 11/24/21 documented as of this encounter
--- OUTSIDE RECORDS SUMMARY | 2025-05-30 05:01 | XMS_ITS | Encounter Summary ---
Author Organization [facility] Address [facility] [place] [address] Care Team Providers Care Renal Medicine Physician Name Role Phone Viv Hamm Primary Care Provider [phone] Alberto Avendano MD Unavailable [phone] Kylee Villanueva MD Primary Care Provider [phone] Encounter Details Date Type Department Care Team (Late st Contact Info) Description 09/30/2022 Earth Sky Message Enc [facility] Medical Group Family & Internal Medicine [address] [address] [facility] Provider Lab work results Social History Tobacco [...] Sex Assigned at Female 11/14/2024 2:54 PM WATER QUALITY SPECIALIST Legal Sex Female 11:06 AM CDT Gender Identity Female 05/11/2025 1:56 PM CDT Sexual Orientation Not on file COVID-19 Exposure Response Date Recorded In the last 10 days, have yo u been in contact with someone who was confirmed or suspected to have Coronavirus/COVID-19? No / Unsure 09/21/2022 1:58 PM WATER QUALITY SPECIALIST documented as of this encounter Plan of Treatment Upcoming Encounters Date Type Department Care Team (Latest Contact Info) Description 06/07/2025 5:00 PM CDT Hospital Encounter [facility] Interventional [place] [address] [id number] Elizabeth Ryder MD Three [address] [address] 06/07/2025 5:00 PM CDT - 06/07/2025 5:20 PM CDT Surgery [facility] [place]ventional [place] [address] [id number] Elizabeth Ryder MD Three [address] [address] INJECTION TRIGGER POINT-cervivcal/th oracic 06/11/2025 2:40 PM CDT Office Visit [facility] Medical Group Orthopedic & Sports Medicine - [place] [address] [place] [address] Reynaldo Bunch MD [address] [place] [address] 07/13/2025 9:00 AM CDT Hospital Encounter [facility] Interventional [place] [address] [id number] Elizabeth Ryder MD Three [facility] [address] [place] [address] 07/13/2025 9:00 AM CDT - 07/13/2025 9:20 AM CDT Surgery [facility] Interventional [place] [address] [id number] Elizabeth Ryder MD Three [facility] [address] [place] [address] INJECTION EPIDURAL STEROID [id number] 07/13/2025 11:00 AM CDT Office Visit [facility] Multispecialty Care - [facility] 3 [facility], [address] [place] [address] Esau Hoff MD 3 [facility] [place] [address] [place] [address] 09/13/2025 7:40 AM WATER QUALITY SPECIALIST Office Visit [facility] Medical [facility] Family & Internal Medicine - [address] [address] Kylee Villanueva MD [address] [place] [address] [place] [address] [id number] Scheduled Procedures Name Priority Associated Diagnoses Date/Ti me INJECTION TRIGGER POINT Myofascial pain 06/07/2025 5:00 PM CDT INJECTION EPIDURAL STEROID CERVICAL Cervical radiculopathy 07/13/2025 9:00 AM CDT documented as of this encounter Visit Diagnoses Not on filedocumented in this encounter Additional Health Concerns Infection Onset Date Last Indicated Resolved Time COVID-19 Rule Out 12/13/2023 12/13/2023 12/13/2023 8:54 AM WATER QUALITY SPECIALIST COVID-19 Rule Out 08/30/2024 08/30/2024 08/30/2024 8:14 AM WATER QUALITY SPECIALIST COVID-19 Rule Out 11/03/2024 11/03/2024 11/03/2024 10:48 AM WATER QUALITY SPECIALIST documented as of this encounter Care Teams Renal Medicine Physician Relationship Specialty [place] [address] [place] [address] PCP - General PHYSICIAN WINE CONSULTANT 02/03/21 06/06/23 [place] [address] [address] [place] [address] PCP - General FAMILY PRACTICE 06/07/23 [place] [address] [place] [address] NEUROLOGICAL SURGERY 11/24/21 documented as of this encounter
--- OUTSIDE RECORDS SUMMARY | 2025-05-30 05:01 | XMS_ITS | Encounter Summary ---
Author Organization [facility] Address [facility] [place] [address] Care Team Providers Care Blade Worker Name Role Phone Viv Hamm Primary Care Provider [phone] Alberto Avendano MD Unavailable [phone] Kylee Villanueva MD Primary Care Provider [phone] Encounter Details Date Type Department Care Team (Late st Contact Info) Description 04/29/2021 MyChart Message Enc [facility] Medical Group General Surgery [address], [address] [place] [address] Tracy Godoy MD [address] [address] Question Social History Tobacco Use [...] Sex Assigned at Female 11/14/2024 2:54 PM TESTER ARMATURE OR FIELDS Legal Sex Female 11:06 AM CDT Gender Identity Female 05/11/2025 1:56 PM CDT Sexual Orientation Not on file documented as of this encounter Plan of Treatment Upcoming Encounters Date Type Department Care Team (Latest Contact Info) Description 06/07/2025 5:00 PM CDT Hospital Encounter [facility] Interventional [place] [address] [id number] Elizabeth Ryder MD Three [facility] [address] [place] [address] 06/07/2025 5:00 PM CDT - 06/07/2025 5:20 PM CDT Surgery [facility] Interventional [place] [address] [id number] Elizabeth Ryder MD Three [facility] [address] [place] [address] INJECTION TRIGGER POINT-cervivcal/th oracic 06/11/2025 2:40 PM CDT Office Visit [facility] Medical Group Orthopedic & Sports Medicine - [place] [address] [place] [address] Reynaldo Bunch MD [address] [place] [address] 07/13/2025 9:00 AM CDT Hospital Encounter [facility] Interventional [place] [address] [id number] Elizabeth Ryder MD Three [facility] [address] [place] [address] 07/13/2025 9:00 AM CDT - 07/13/2025 9:20 AM CDT Surgery [facility] Interventional Pain [place] [address] [id number] Elizabeth Ryder MD Three [facility] [address] [place] [address] INJECTION EPIDURAL STEROID [id number] 07/13/2025 11:00 AM CDT Office Visit [facility] Multispecialty Care - [facility] 3 [facility] [address] [place] [address] Esau Hoff MD 3 [facility] [address] [place] [address] 09/13/2025 7:40 AM TESTER ARMATURE OR FIELDS Office Visit [facility] Medical Group Family & Internal Medicine - [address] [address] Kylee Villanueva MD [address] [place] [address] [place] [address] [id number] Scheduled Procedures Name Priority Associated Diagnoses Date/Ti me INJECTION TRIGGER POINT Myofascial pain 06/07/2025 5:00 PM CDT INJECTION EPIDURAL STEROID CERVICAL Cervical radiculopathy 07/13/2025 9:00 AM CDT documented as of this encounter Visit Diagnoses Not on filedocumented in this encounter Additional Health Concerns Infection Onset Date Last Indicated Resolved Time COVID-19 Rule Out 12/13/2023 12/13/2023 12/13/2023 8:54 AM TESTER ARMATURE OR FIELDS COVID-19 Rule Out 08/30/2024 08/30/2024 08/30/2024 8:14 AM TESTER ARMATURE OR FIELDS COVID-19 Rule Out 11/03/2024 11/03/2024 11/03/2024 10:48 AM TESTER ARMATURE OR FIELDS documented as of this encounter Care Teams Blade Worker Relationship Specialty [place] [address] [place] [address] PCP - General PHYSICIAN COIN COUNTER AND WRAPPER 02/03/21 06/06/23 [place] [address] [address] [place] [address] PCP - General FAMILY PRACTICE 06/07/23 [place] [address] [place] [address] NEUROLOGICAL SURGERY 11/24/21 documented as of this encounter
--- OUTSIDE RECORDS SUMMARY | 2025-05-30 05:01 | XMS_ITS | Encounter Summary ---
Author Organization [facility] Address [facility] [place] [address] Care Team Providers Care Java Software Engineer Name Role Phone Viv Hamm Primary Care Provider [phone] Albetro Avendano MD Unavailable [phone] Kylee Villanueva MD Primary Care Provider [phone] Encounter Details Date Type Department Care Team (Late st Contact Info) Description 05/31/2022 MyChart Message Enc [facility] Medical Group Family & Internal Medicine [facility] [address] [place] [address] Viv Hamm [place] [id number] [place] [address] [address] [address] Scan Abdomen/Pelvis WWO Contrast Social [...] Sex Assigned at Female 11/14/2024 2:54 PM MEDICINAL CHEMIST Legal Sex Female 11:06 AM CDT [...] Encounter [facility] Interventional [place] [address] [id number] Elizabeth Ryder MD Three [address] [address] 06/07/2025 5:00 PM CDT - 06/07/2025 5:20 PM CDT Surgery [facility] Interventional [place] [address] [id number] Elizabeth Ryder MD Three [facility] [address] [place] [address] INJECTION TRIGGER POINT-cervivcal/th oracic 06/11/2025 2:40 PM CDT Office Visit [facility] Medical Group Orthopedic & Sports Medicine - [place] [address] [place], [place] 7[address] Reynaldo Bunch MD [address] [place] [address] 07/13/2025 9:00 AM CDT Hospital Encounter [facility] Interventional [place] [address] [id number] Elizabeth Ryder MD Three [facility] [address] [place] [address] 07/13/2025 9:00 AM CDT - 07/13/2025 9:20 AM CDT Surgery [facility] Interventional Pain [place] [address] [id number] Elizabeth Ryder MD Three [facility] [address] [place] [address] INJECTION EPIDURAL STEROID [id number] 07/13/2025 11:00 AM CDT Office Visit [facility] Medical [facility] Multispecialty Care - [facility] 3 [facility], [address] [place] [address] Esau Hoff MD 3 [facility] [place] [address] [place] [address] 09/13/2025 7:40 AM MEDICINAL CHEMIST Office Visit [facility] Medical Group Family & Internal Medicine - [address] [address] Kylee Villanueva MD [address] [place] [address] [place] [address] Scheduled Procedures Name Priority Associated Diagnoses Date/Ti me INJECTION TRIGGER POINT Myofascial pain 06/07/2025 5:00 PM CDT INJECTION EPIDURAL STEROID CERVICAL Cervical radiculopathy 07/13/2025 9:00 AM CDT documented as of this encounter Visit Diagnoses Not on filedocumented in this encounter Additional Health Concerns Infection Onset Date Last Indicated Resolved Time COVID-19 Rule Out 12/13/2023 12/13/2023 12/13/2023 8:54 AM MEDICINAL CHEMIST COVID-19 Rule Out 08/30/2024 08/30/2024 08/30/2024 8:14 AM MEDICINAL CHEMIST COVID-19 Rule Out 11/03/2024 11/03/2024 11/03/2024 10:48 AM MEDICINAL CHEMIST documented as of this encounter Care Teams Java Software Engineer Relationship Specialty [place] [address] [place] [address] PCP - General PHYSICIAN DRUG DEPARTMENT WORKER 02/03/21 06/06/23 [place] [address] [address] [place] [address] PCP - General FAMILY PRACTICE 06/07/23 [place] [address] [place] [address] NEUROLOGICAL SURGERY 11/24/21 documented as of this encounter
--- OUTSIDE RECORDS SUMMARY | 2025-05-30 05:01 | XMS_ITS | Encounter Summary ---
Author Organization [facility] Address [facility] [place] [address] Care Team Providers Care Oil Agent Name Role Phone Viv Hamm Primary Care Provider [phone] Alberto Avendano MD Unavailable [phone] Kylee Villanueva MD Primary Care Provider [phone] Encounter Details Date Type Department Care Team (Late st Contact Info) Description 09/16/2022 MyChart Message Enc [facility] Medical Group Family [facility] [address] [place] [address] Viv Hamm [place] [id number] [place] [address] Blood Test Results Social History Tobacco [...] Sex Assigned at Female 11/14/2024 2:54 PM PLUMBING AND HEATING MECHANIC Legal Sex Female 11:06 AM CDT Gender Identity Female 05/11/2025 1:56 PM CDT Sexual Orientation Not on file COVID-19 Exposure Response Date Recorded In the last 10 days, have yo u been in contact with someone who was confirmed or suspected to have Coronavirus/COVID-19? No / Unsure 09/16/2022 11:34 AM PLUMBING AND HEATING MECHANIC documented as of this encounter Plan of Treatment Upcoming Encounters Date Type Department Care Team (Latest Contact Info) Description 06/07/2025 5:00 PM CDT Hospital Encounter [facility] Interventional [place] [address] [id number] Elizabeth Ryder MD Three [address] [address] 06/07/2025 5:00 PM CDT - 06/07/2025 5:20 PM CDT Surgery [facility] Interventional [place] [address] [id number] Elizabeth Ryder MD [address] [address] INJECTION TRIGGER POINT-cervivcal/th oracic 06/11/2025 2:40 PM CDT Office Visit [facility] Medical Group Orthopedic & Sports Medicine - [place] [address] [place] [address] Reynaldo Bunch MD [address] [place] [address] 07/13/2025 9:00 AM CDT Hospital Encounter [facility] Interventional Pain [place] [address] [id number] Elizabeth Ryder MD Three [facility] [address] [place] [address] 07/13/2025 9:00 AM CDT - 07/13/2025 9:20 AM CDT Surgery [facility] Interventional Pain [place] [address] [id number] Elizabeth Ryder MD Three [facility] [address] [place] [address] INJECTION EPIDURAL STEROID [id number] 07/13/2025 11:00 AM CDT Office Visit [facility] Medical [facility] Multispecialty Care - [facility] 3 [facility], [address] [place] [address] Esau Hoff MD 3 [facility] [address] [place] [address] 09/13/2025 7:40 AM PLUMBING AND HEATING MECHANIC Office Visit [facility] Medical Group Family & Internal Medicine - [address] [address] Kylee Villanueva MD [address] [place] [address] [place] [address] Scheduled Procedures Name Priority Associated Diagnoses Date/Ti me INJECTION TRIGGER POINT Myofascial pain 06/07/2025 5:00 PM CDT INJECTION EPIDURAL STEROID CERVICAL Cervical radiculopathy 07/13/2025 9:00 AM CDT documented as of this encounter Visit Diagnoses Not on filedocumented in this encounter Additional Health Concerns Infection Onset Date Last Indicated Resolved Time COVID-19 Rule Out 12/13/2023 12/13/2023 12/13/2023 8:54 AM PLUMBING AND HEATING MECHANIC COVID-19 Rule Out 08/30/2024 08/30/2024 08/30/2024 8:14 AM PLUMBING AND HEATING MECHANIC COVID-19 Rule Out 11/03/2024 11/03/2024 11/03/2024 10:48 AM PLUMBING AND HEATING MECHANIC documented as of this encounter Care Teams Oil Agent Relationship Specialty [place] [address] [place] [address] PCP - General PHYSICIAN NAIL PROFESSIONAL 02/03/21 06/06/23 [place] [address] [address] [place] [address] PCP - General FAMILY PRACTICE 06/07/23 [place] [address] [place] [address] NEUROLOGICAL SURGERY 11/24/21 documented as of this encounter
--- OUTSIDE RECORDS SUMMARY | 2025-05-30 05:01 | XMS_ITS | Encounter Summary ---
Author Organization [facility] Address [facility] [place] [address] Care Team Providers Care Reservations Specialist Name Role Phone Viv Hamm Primary Care Provider [phone] Alberto Avendano MD Unavailable [phone] Kylee Villanueva MD Primary Care Provider [phone] Encounter Details Date Type Department Care Team (Latest Contact Info) Description 09/10/2022 Gamervisionhart Message Enc [facility] Medical Group Family & Internal Medicine [facility] [address] [place] [address] [place] Hamm [place] [id number] [place] [address] Report from Neurosurgeon Social History Tobacco [...] Sex Assigned at Female 11/14/2024 2:54 PM FACTORY MACHINE COMPUTER OPERATOR Legal Sex Female 11:06 AM CDT Gender Identity Female 05/11/2025 1:56 PM CDT Sexual Orientation Not on file COVID-19 Exposure Response Date Recorded In the last 10 days, have yo u been in contact with someone who was confirmed or suspected to have Coronavirus/COVID-19? No / Unsure 09/07/2022 3:39 PM FACTORY MACHINE COMPUTER OPERATOR documented as of this encounter Plan of Treatment Upcoming Encounters Date Type Department Care Team (Latest Contact Info) Description 06/07/2025 5:00 PM CDT Hospital Encounter [facility] Interventional [place] [address] [id number] Elizabeth Ryder MD Three [address] [address] 06/07/2025 5:00 PM CDT - 06/07/2025 5:20 PM CDT Surgery [facility] [place]ventional [place] [address] [id number] Elizabeth Ryder MD [address] [address] INJECTION TRIGGER POINT-cervivcal/th oracic 06/11/2025 2:40 PM CDT Office Visit [facility] Medical Group Orthopedic & Sports Medicine - [place] [address] [place], [place] [address] Reynaldo Bunch MD [address] [place] [address] 07/13/2025 9:00 AM CDT Hospital Encounter [facility] Inter[facility] [place] [address] [id number] Elizabeth Ryder MD Three [facility] [address] [place] [address] 07/13/2025 9:00 AM CDT - 07/13/2025 9:20 AM CDT Surgery [facility] Interventional Pain Management [place] [address] [phone] Elizabeth Ryder MD Three [facility] [address] [place] [address] INJECTION EPIDURAL STEROID [id number] 07/13/2025 11:00 AM CDT Office Visit [facility] Medical [facility] Multispecialty Care - [facility] 3 [facility], [address] [place] [address] Esau Hoff MD 3 [facility] [address] [place] [address] 09/13/2025 7:40 AM FACTORY MACHINE COMPUTER OPERATOR Office Visit [facility] Medical Group Family & Internal Medicine - [address] [address] Kylee Villanueva MD [address] [place] [address] [place] [address] Scheduled Procedures Name Priority Associated Diagnoses Date/Ti me INJECTION TRIGGER POINT Myofascial pain 06/07/2025 5:00 PM CDT INJECTION EPIDURAL STEROID CERVICAL Cervical radiculopathy 07/13/2025 9:00 AM CDT documented as of this encounter Visit Diagnoses Not on filedocumented in this encounter Additional Health Concerns Infection Onset Date Last Indicated Resolved Time COVID-19 Rule Out 12/13/2023 12/13/2023 12/13/2023 8:54 AM FACTORY MACHINE COMPUTER OPERATOR COVID-19 Rule Out 08/30/2024 08/30/2024 08/30/2024 8:14 AM FACTORY MACHINE COMPUTER OPERATOR COVID-19 Rule Out 11/03/2024 11/03/2024 11/03/2024 10:48 AM FACTORY MACHINE COMPUTER OPERATOR documented as of this encounter Care Teams Reservations Specialist Relationship Specialty [place] [address] [place] [address] PCP - General PHYSICIAN MAILHOUSE OPERATOR 02/03/21 06/06/23 [place] [address] [place] [address] PCP - General FAMILY PRACTICE 06/07/23 [place] [address] [place] [address] NEUROLOGICAL SURGERY 11/24/21 documented as of this encounter
--- OUTSIDE RECORDS SUMMARY | 2025-05-30 05:01 | XMS_ITS | Encounter Summary ---
Author Organization [facility] Address [address] [place] [address] Care Team Providers Care Intellectual Property Legal Assistant Name Role Phone Alberto Avendano MD Unavailable [phone] Kylee Villanueva MD Primary Care Provider [phone] Encounter Details Date Type Department Care Team (Late st Contact Info) Description 05/22/2025 ACAL Energyt Message Enc [facility] Medical Group Orthopedic & Sports Medicine - [place] [address] [place] [address] [phone] Reynaldo Bunch MD [address] [place], [place] [address] 285- [phone] Social History Tobacco Use Types Packs/Day [...] Sex Assigned at Female 11/14/2024 2:54 PM CLINICAL SUPPORT MANAGER Legal Sex Female 11:06 AM CDT Gender Identity Female 05/11/2025 1:56 PM CDT Sexual Orientation Not on file documented as of this encounter Plan of Treatment Upcoming Encounters Date Type Department Care Team (Latest Contact Info) Description 06/07/2025 5:00 PM CDT Hospital Encounter [facility] Interventional [place] [address] [id number] Elizabeth Ryder MD Three [address] [address] 06/07/2025 5:00 PM CDT - 06/07/2025 5:20 PM CDT Surgery [facility] Interventional [place] [address] [id number] Elizabeth Ryder MD Three [address] [address] INJECTION TRIGGER POINT-cervivcal/th oracic 06/11/2025 2:40 PM CDT Office Visit [facility] Medical Group Orthopedic & Sports Medicine - [place] [address] [place] [address] Reynaldo Bunch MD [address] [place] [address] 07/13/2025 9:00 AM CDT Hospital Encounter [facility] Interventional [place] [address] [id number] Elizabeth Ryder MD Three [address] [address] 07/13/2025 9:00 AM CDT - 07/13/2025 9:20 AM CDT Surgery [facility] Interventional [place] [address] [id number] Elizabeth Ryder MD Three [facility] [address] [place] [address] INJECTION EPIDURAL STEROID [id number] 07/13/2025 11:00 AM CDT Office Visit [facility] Multispecialty Care - [facility] 3 [facility] [address] [place] [address] Esau Hoff MD 3 [facility] [address] [place] [address] 09/13/2025 7:40 AM CLINICAL SUPPORT MANAGER Office Visit [facility] Medical [facility] Family & Internal Medicine - [address] [address] Kylee Villanueva MD [address] [place] [address] [place] [address] [phone] Scheduled Procedures Name Priority Associated Diagnoses Date/Ti [...] Total Score: 2 12/11/19 25 1:50 PM CLINICAL SUPPORT MANAGER documented as of this encounter Care Teams Intellectual Property Legal Assistant Relationship Specialty Start [place] [address] [facility] [place] [address] PCP - General FAMILY PRACTICE 06/07/23 Alberto Avendano MD NEUROLOGICAL SURGERY 11/24/21 documented as of this encounter
--- OUTSIDE RECORDS SUMMARY | 2025-05-30 05:01 | XMS_ITS | Referral Summary ---
Author Organization [facility] Address [address] [place] [address] Care Team Providers Care Lapel Stitcher Name Role Phone Shane Noble MD Unavailable [phone] Kylee Villanueva MD Primary Care Provider [phone] Reynaldo Bunch MD Unavailable [phone] Encounters Date Type Department Care Team Description 2025 Telephone [facility] Pediatric Genetics [facility] 2nd [place] [address] [place] [id number] Ale Thompson CGC PA wes 05/25/2025 3:00 PM CDT Office Visit [facility] Pediatric [facility] 2nd [place] [address] [place] [address] Felix Tripathi MD Connective tissue disorder (Primary Dx) 05/16/2025 7:00 AM CDT Therapy [facility] Physical Therapy [address] [place] [phone] Wu Hicks DPT Chronic right shoulder pain (Primary Dx); Rotator cuff tear arthropathy of right shoulder 04/30/2025 7:00 AM CDT Therapy [facility] Physical Therapy [address] [place] [phone] Wu Hicks DPT Chronic right shoulder pain (Primary Dx); Rotator cuff tear arthropathy of right shoulder 04/17/2025 10:00 AM CDT Therapy [facility] Physical Therapy [address] [place] [phone] Mariaelena Steve Manjulamargie, PHLEBOTOMY LAB ASSISTANT Chronic right shoulder pain (Primary Dx) 04/10/2025 10:00 AM CDT Therapy [facility] Physical [address] [address] Mariaelena Steve, PHLEBOTOMY LAB ASSISTANT Chronic right shoulder pain (Primary Dx) 03/30/2025 7:00 AM CDT Therapy [facility] Physical [address] [address] Wu Hicks, DPT Chronic right shoulder pain (Primary Dx); Rotator cuff tear arthropathy of right shoulder 03/13/2025 10:00 AM CDT Therapy [facility] Physical [address] [address] Mariaelena Steve Manjulamargie, PHLEBOTOMY LAB ASSISTANT Chronic right shoulder pain (Primary Dx); Rotator cuff tear arthropathy of right shoulder 03/06/2025 8:30 AM CDT Therapy [facility] Physical [address] [address] Mariaelena Steve Manjulamargie, PHLEBOTOMY LAB ASSISTANT Chronic right shoulder pain (Primary Dx) 02/27/2025 1:45 PM CDT Therapy [facility] Physical [address] [address] Mariaelena Steve Manjulamargie, PHLEBOTOMY LAB ASSISTANT Chronic right shoulder pain (Primary Dx); Rotator [...] 12/26/2024 Assessment & Plan (12/26/2024 8:43 AM GIMP BUTTONHOLE MACHINE OPERATOR): CINTIA with some pain this morning. 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 Not on file Not on fi le Last Filed Vital Signs Vital Sign Reading Time Taken Comments Blood Pressure 128/72 05/25/2025 2:49 PM CDT Pulse 111 05/25/2025 2:49 PM CDT Temperature 36.3 C (97.4 F) 01/30/2025 7:57 AM CDT Respiratory Rate 20 09/11/2023 7:29 PM GIMP BUTTONHOLE MACHINE OPERATOR Oxygen Saturation 98% 05/25/2025 2:49 PM CDT Inhaled Oxygen Concentration - - Weight 76.9 kg (169 lb 8.5 oz) 05/25/2025 2:49 P M CDT Height 170.1 cm (5' 6.97) 05/25/2025 2:49 PM CD T Body Mass Index 26.58 05/25/2025 2:49 PM CDT Plan of Treatment Not on file Procedures Procedure Name Priority Date/Time Associated Diagnosis Comments HEPATITIS PANEL, ACUTE Routine 12/14/2023 4:08 PM GIMP BUTTONHOLE MACHINE OPERATOR Cervicalgia from Last 3 Months or Most Recently Relevant to Health Maintenance Results * Hepatitis panel, acute Blood (12/14/2023 4:08 PM GIMP BUTTONHOLE MACHINE OPERATOR) Hep A IgM Nonreactive Nonreactive [facility] Hep B core IgM Nonreactive Nonreactive [facility] Hep C Ab Nonreactive Nonreactive [facility] Comment:Antibodies to HCV no t detected. Does NOT exclude the possibility of recent exposure to HCV. Current interpretive data was last revised on 22 HepBsAg Nonreactive Nonreactive [facility] Blood 12/14/2023 4:08 PM GIMP BUTTONHOLE MACHINE OPERATOR 12/14/2023 5:16 PM GIMP BUTTONHOLE MACHINE OPERATOR us Briana Clemens MD LAB MICROBIOLOGY - GENERAL ORDER MARCIA Final Result [facility] [place] [address] from Last 3 Months or Most Recently Relevant to Health Maintenance Insurance [facility] CHOICE PLUS [facility] CHOICE PLUS Care Teams Lapel Stitcher Relationship Specialty Start [place] [address] [facility] [address] [place] [address] PCP - General Family Medicine 07/12/23 Shane Noble MD [address] [address] Fellow Neurology 08/17/22 Reynaldo Bunch MD [address] [place] [address] Orthopedic Surgery 08/10/23
--- OUTSIDE RECORDS SUMMARY | 2025-05-30 05:01 | XMS_ITS | Clinical Summary ---
Author Organization [facility] Address [address] [place] [place] [address] Care Team Providers Care Pbx Technician Name Role Phone Kylee Villanueva MD Primary Care Provider [phone] Source Comments [facility],non-owned Affiliates and Associated Physician Practices is amultiple site organization consisting of ambulatory clinics and hospital sitesin [place], [place], [place] and [place]. This disclosure is being madepursuant to the Care Everywhere program and may not contain all information available regarding this patient. Last updated 18.[facility] Allergies Active Allergy Reactions Criticality Noted Date [...] fluticasone propionate (FLONASE) 50 MCG/ACT nasal spray Manly 2 (two) sprays into the nose at [...] Every 4-6 hours prn Active HYDROcodone-ernestina taminophen ([place]) 5-325 MG tabletIndicatio ns:Post-operati ve pain Take [...] Team Description 05/22/2025 Travel 05/20/2025 Results [place] [facility] [place] [address] Matthew Bolivar, [facility] [address] [place] [phone] Anitha Cramer, COLLECTOR-TACOS Results 04/12/2025 Results [place] [facility] [place] [address] Matthew Bolivar, [address] [phone] Anitha Cramer, COLLECTOR-MARRIAGE PERFORMER Results 04/11/2025 10:00 AM CDT - 04/16/2025 11:59 PM CDT Hospital Encounter [facility] - Nuclear Medicine [address] [place], [place] [id number] Anitha Cramer, COLLECTOR-MARRIAGE PERFORMER Discharge Disposition: Home or Self Care 03/29/2025 Travel 03/12/2025 11:00 AM CDT - 03/12/2025 11:59 PM CDT Hospital Encounter [facility] NUTRITION [address] [place] [address] Unknown, Provider Anitha Cramer, COLLECTOR-TACOS Gastroenterology Discharge Disposition: Home or Self Care [...] Description 07/02/2025 10:00 AM CDT Video Visit [facility] [place] [address] [address] , [address] [address] Anitha Cramer, COLLECTOR-MARRIAGE PERFORMER [address] [address] Health Maintenance Due Date Last [...] 29 U/L [facility] Comment: Test Performed at: [facility] [place] [address] [address] [address] ROSARIO ARAUJO MD Blood BLOOD SPECIMEN / Unknown 05/18/2025 6:23 AM CDT 05/18/2025 6:23 AM CDT us Anitha Cramer COLLECTOR-MARRIAGE PERFORMER LAB - CHEMISTRY ORDERAB LES Final Result [facility] [address] [place] [address] * NM Gastric Emptying (04/11/2025 2:18 PM [...] on 04/11/2025 4:12 PM us Anitha Cramer COLLECTOR-MARRIAGE PERFORMER NM ORDERABLES Final R esult * (ABNORMAL) [...] - 29 mmol/L 04/10/2024 8:10 AM CDT [facility] Calcium 9.7 8.4 - 10.4 mg/dL 04/10/2024 8:10 AM CDT [facility] Anion Gap 10 6 - 16 mmol/L 04/10/2024 8:10 AM CDT [facility] BUN 23 7 - 26 mg/dL 04/10/2024 8:10 AM CDT [facility] Creatinine 0.88 0.57 - 1.11 mg/dL 04/10/2024 8:10 AM CDT [facility] eGFR by CKD-EPI 79(L) >=90 mL/min/1.7 3 m2 04/10/2024 8:10 AM CDT [facility] Blood BLOOD SPECIMEN / Unknown Venipuncture / Unknown 04/10/2024 7:51 AM CDT 04/10/2024 7:54 AM CDT Janet Ely DO LAB - CHEMISTRY ORDERABLES Nasra nguyen Result [facility] [address] [place] [address] * HEPATITIS C AB W/RFLX [...] a test for HCV RNA (test code 96671) is suggested. For additional information please refer to http://education.Hively/faq/QQW83j2 (This link is being provided for informational/ educational purposes only.) Test Performed at: [facility] [address] [place] [address] SHAKIR HOLLIS DO,MPH Blood BLOOD SPECIMEN / Unknown 05/14/2022 2:41 PM CDT 05/14/2022 2:42 PM CDT us Anitha Cramer COLLECTOR-MARRIAGE PERFORMER LAB - CHEMISTRY ORDERAB LES Final Result [facility] [address] [place] [address] from Last 3 Months or Most Recently Relevant to Health Maintenance Insurance [facility] Care Teams Pbx Technician Relationship Specialty Start [place] [address] [address] PCP - General Family Medicine 01/25/24
--- OUTSIDE RECORDS SUMMARY | 2025-05-30 05:01 | XMS_ITS | Encounter Summary ---
Author Organization [facility] Address [facility] [place] [address] Care Team Providers Care Tumbling Instructor Name Role Phone Viv Hamm Primary Care Provider [phone] Alberto Avendano MD Unavailable [phone] Kylee Villanueva MD Primary Care Provider [phone] Encounter Details Date Type Department Care Team (Latest Contact Info) Description 11/10/2022 MyChart Message Enc [facility] Medical Group Multispecialty Care - [facility] 3 [facility], [address] [place] [address] Shane Noble MD 1 [place] [address] Small Fiber Neuropathy Biopsy Social History Tobacco [...] Sex Assigned at Female 11/14/2024 2:54 PM SHELLFISH WEIGHER Legal Sex Female 11:06 AM CDT Gender Identity Female 05/11/2025 1:56 PM CDT Sexual Orientation Not on file COVID-19 Exposure Response Date Recorded In the last 10 days, have yo u been in contact with someone who was confirmed or suspected to have Coronavirus/COVID-19? No / Unsure 11/06/2022 2:42 PM SHELLFISH WEIGHER documented as of this encounter Progress Notes * Shane Noble MD - 11/10/2022 6:01 PM CST Can you please contact the referral dept and provide the numbers she has kindly listed in her message? LFISH WEIGHER documented in this encounter Plan of Treatment Upcoming Encounters Date Type Department Care Team (Latest Contact Info) Description 06/07/2025 5:00 PM CDT Hospital Encounter [facility] [place] [address] [id number] Elizabeth Ryder MD Three [address] [address] 06/07/2025 5:00 PM CDT - 06/07/2025 5:20 PM CDT Surgery [facility] Interventional [place] [address] [id number] Elizabeth Ryder MD Three [address] [address] INJECTION TRIGGER POINT-cervivcal/th oracic 06/11/2025 2:40 PM CDT Office Visit [facility] Orthopedic & Sports Medicine - [place] [address] [place] [address] Reynaldo Bunch MD [address] [place] [address] 07/13/2025 9:00 AM CDT Hospital Encounter [facility] Interventional [place] [address] [phone] Elizabeth Ryder MD Three [facility] [address] [place] [address] 07/13/2025 9:00 AM CDT - 07/13/2025 9:20 AM CDT Surgery [facility] Interventional Pain [place] [address] [phone] Elizabeth Ryder MD Three [facility] [address] [place] [address] INJECTION EPIDURAL STEROID [id number] 07/13/2025 11:00 AM CDT Office Visit [facility] Multispecialty Care - [facility] 3 [facility], [address] [place] [address] Esau Hoff MD 3 [facility] [address] [place] [address] 09/13/2025 7:40 AM SHELLFISH WEIGHER Office Visit [facility] Family & Internal Medicine - [address] [address] [place] [address] [address] [place] [address] Scheduled Procedures Name Priority Associated Diagnoses Date/Ti me INJECTION TRIGGER POINT Myofascial pain 06/07/2025 5:00 PM CDT INJECTION EPIDURAL STEROID CERVICAL Cervical radiculopathy 07/13/2025 9:00 AM CDT documented as of this encounter Visit Diagnoses Not on filedocumented in this encounter Additional Health Concerns Infection Onset Date Last Indicated Resolved Time COVID-19 Rule Out 12/13/2023 12/13/2023 12/13/2023 8:54 AM SHELLFISH WEIGHER COVID-19 Rule Out 08/30/2024 08/30/2024 08/30/2024 8:14 AM SHELLFISH WEIGHER COVID-19 Rule Out 11/03/2024 11/03/2024 11/03/2024 10:48 AM SHELLFISH WEIGHER documented as of this encounter Care Teams Tumbling Instructor Relationship Specialty [place] [address] [place] [address] PCP - General PHYSICIAN PLATE PREPARER 02/03/21 06/06/23 [place] [address] [address] [place] [address] PCP - General FAMILY PRACTICE 06/07/23 [place] [address] [place] [address] NEUROLOGICAL SURGERY 11/24/21 documented as of this encounter
--- OUTSIDE RECORDS SUMMARY | 2025-05-30 05:01 | XMS_ITS | Encounter Summary ---
Author Organization [facility] Address [address] [place] [address] Care Team Providers Care Riprap Worker Name Role Phone Viv Hamm Primary Care Provider [phone] Alberto Avendano MD Unavailable [phone] Kylee Villanueva MD Primary Care Provider [phone] Reason for Visit * Reason Onset Date Comments Follow Up 08/24/2022 Encounter Details Date Type Department Care Team (Late st Contact Info) Description 08/24/2022 Telephone [facility] Interventional [place] [address] [id number] Alberto Bueno, RN Follow Up Social History [...] Sex Assigned at Female 11/14/2024 2:54 PM BOAT OUTBOARD ENGINE MECHANIC Legal Sex Female 11:06 AM CDT [...] [facility] Interventional [place] [address] [id number] Elizabeth Ryder MD Three [facility] [address] [place] [address] 06/07/2025 5:00 PM CDT - 06/07/2025 5:20 PM CDT Surgery [facility] Interventional [place] [address] [id number] Elizabeth Ryder MD Three [facility] [address] [place] [address] INJECTION TRIGGER POINT-cervivcal/th oracic 06/11/2025 2:40 PM CDT Office Visit [facility] Medical [facility] Orthopedic & Sports Medicine - [place] [address] [place] [address] Reynaldo Bunch MD [address] [place] [address] 07/13/2025 9:00 AM CDT Hospital Encounter [facility] Interventional [place] [address] [id number] Elizabeth Ryder MD Three [facility] [address] [place] [address] 07/13/2025 9:00 AM CDT - 07/13/2025 9:20 AM CDT Surgery [facility] Interventional [place] [address] [id number] Elizabeth Ryder MD Three [facility] [address] [place] [address] INJECTION EPIDURAL STEROID [id number] 07/13/2025 11:00 AM CDT Office Visit [facility] Multispecialty Care - [facility] 3 [facility], [address] [place] [address] Esau Hoff MD [address] [address] 09/13/2025 7:40 AM BOAT OUTBOARD ENGINE MECHANIC Office Visit [facility] Medical Group Family & Internal Medicine [facility] [address] [place] [address] [place] [address] [facility] Wes. [address] [place] [address] Scheduled Procedures Name Priority Associated Diagnoses Date/Ti me INJECTION TRIGGER POINT Myofascial pain 06/07/2025 5:00 PM CDT INJECTION EPIDURAL STEROID CERVICAL Cervical radiculopathy 07/13/2025 9:00 AM CDT documented as of this encounter Visit Diagnoses Not on filedocumented in this encounter Additional Health Concerns Infection Onset Date Last Indicated Resolved Time COVID-19 Rule Out 12/13/2023 12/13/2023 12/13/2023 8:54 AM BOAT OUTBOARD ENGINE MECHANIC COVID-19 Rule Out 08/30/2024 08/30/2024 08/30/2024 8:14 AM BOAT OUTBOARD ENGINE MECHANIC COVID-19 Rule Out 11/03/2024 11/03/2024 11/03/2024 10:48 AM BOAT OUTBOARD ENGINE MECHANIC documented as of this encounter Care Teams Riprap Worker Relationship Specialty [place] [address] [place] [address] PCP - General PHYSICIAN BATCH MIXING TRUCK DRIVER 02/03/21 06/06/23 [place] [address] [facility] Shannan. [address] [place] [address] PCP - General FAMILY PRACTICE 06/07/23 [place] [address] [place] [address] NEUROLOGICAL SURGERY 11/24/21 documented as of this encounter
--- OUTSIDE RECORDS SUMMARY | 2025-05-30 05:01 | XMS_ITS | Encounter Summary ---
Author Organization [facility] Address [address] [place] [address] Care Team Providers Care General Practice Name Role Phone Viv Hamm Primary Care Provider [phone] Alberto Avendano MD Unavailable [phone] Kylee Villanueva MD Primary Care Provider [phone] Encounter Details Date Type Department Care Team (Late st Contact Info) Description 10/05/2022 Pre-Procedure Call [facility] Interventional [place] [address] [id number] [place] [address] [address] Social History Tobacco Use Types [...] Sex Assigned at Female 11/14/2024 2:54 PM BEADING INSTALLER Legal Sex Female 11:06 AM CDT Gender Identity Female 05/11/2025 1:56 PM CDT Sexual Orientation Not on file COVID-19 Exposure Response Date Recorded In the last 10 days, have yo u been in contact with someone who was confirmed or suspected to have Coronavirus/COVID-19? No / Unsure 10/06/2022 7:22 AM BEADING INSTALLER documented as of this encounter Functional Status * Calculated C-SSRS Risk Score (Lifetime/Recent) Answer Date of Assessment Author Status No Risk Indicated 10/06/2022 7:33 AM BEADING INSTALLER Monica Vázquez RN Active * [place] Suicide Severity Rating Scale (Screener/Recent Self-Report) Question [...] [facility] [place] [address] [id number] Elizabeth Ryder MD Three [facility] Suite [facility] [place] [address] 06/07/2025 5:00 PM CDT - 06/07/2025 5:20 PM CDT Surgery [facility] [place] [address] [id number] Elizabeth Ryder MD Three [facility] [address] [place] [address] INJECTION TRIGGER POINT-cervivcal/th oracic 06/11/2025 2:40 PM CDT Office Visit [facility] Medical [facility] Orthopedic & Sports Medicine - [place] [address] [place] [address] Reynaldo Bunch MD [address] [place] [address] 07/13/2025 9:00 AM CDT Hospital Encounter [facility] Interventional [place] [address] [id number] Elizabeth Ryder MD Three [facility] [address] [place] [address] 07/13/2025 9:00 AM CDT - 07/13/2025 9:20 AM CDT Surgery [facility] Interventional [place] [address] [id number] Elizabeth Ryder MD Three [facility] [address] [place] [address] INJECTION EPIDURAL STEROID [id number] 07/13/2025 11:00 AM CDT Office Visit [facility] Multispecialty Care - [facility] 3 [facility], [address] [place] [address] Esau Hoff MD 3 [facility] [address] [address] 09/13/2025 7:40 AM BEADING INSTALLER Office Visit [facility] Medical Group Family & Internal Medicine [facility] [address] [place] [phone] [place] [address] [facility] Wes. [address] [place] [address] Scheduled Procedures Name Priority Associated Diagnoses Date/Ti me INJECTION TRIGGER POINT Myofascial pain 06/07/2025 5:00 PM CDT INJECTION EPIDURAL STEROID CERVICAL Cervical radiculopathy 07/13/2025 9:00 AM CDT documented as of this encounter Visit Diagnoses Not on filedocumented in this encounter Additional Health Concerns Infection Onset Date Last Indicated Resolved Time COVID-19 Rule Out 12/13/2023 12/13/2023 12/13/2023 8:54 AM BEADING INSTALLER COVID-19 Rule Out 08/30/2024 08/30/2024 08/30/2024 8:14 AM BEADING INSTALLER COVID-19 Rule Out 11/03/2024 11/03/2024 11/03/2024 10:48 AM BEADING INSTALLER documented as of this encounter Care Teams General Practice Relationship Specialty [place] [address] [place] [address] PCP - General PHYSICIAN MONITOR TECH 02/03/21 06/06/23 [place] [address] [facility]. [address] [place] [address] PCP - General FAMILY PRACTICE 06/07/23 [place] [address] [place] [address] NEUROLOGICAL SURGERY 11/24/21 documented as of this encounter
--- OUTSIDE RECORDS SUMMARY | 2025-05-30 05:01 | XMS_ITS | Encounter Summary ---
Author Organization [facility] Address [address] [place] [address] Care Team Providers Care State Game Warden Name Role Phone Alberto Avendano MD Unavailable Kylee Villanueva MD Primary Care Provider [phone] Encounter Details Date Type Department Care Team (Late st Contact Info) Description 11/02/2024 Banjo Message Enc [facility] Medical Group Family & Internal Medicine [address] [address] [employer] [employer] Provider Medication Information Social History Tobacco Use [...] Sex Assigned at Female 11/14/2024 2:54 PM CONTAMINATION CONSULTANT Legal Sex Female 11:06 AM CDT [...] Description 06/07/2025 5:00 PM CDT Hospital Encounter [facility] Interventional [place] [address] [id number] Elizabeth Ryder MD Three [address] [address] 06/07/2025 5:00 PM CDT - 06/07/2025 5:20 PM CDT Surgery [facility] [place] [address] [id number] Elizabeth Ryder MD Three [address] [address] INJECTION TRIGGER POINT-cervivcal/th oracic 06/11/2025 2:40 PM CDT Office Visit [facility] Medical Group Orthopedic & Sports Medicine - [place] [address] [place] [address] Reynaldo Bunch MD [address] [place] [address] 07/13/2025 9:00 AM CDT Hospital Encounter [facility] Interventional [place] [address] [id number] Elizabeth Ryder MD Three [facility] [address] [place] [address] 07/13/2025 9:00 AM CDT - 07/13/2025 9:20 AM CDT Surgery [facility] Interventional Pain [place] [address] [id number] Elizabeth Ryder MD Three [facility] [address] [place] [address] INJECTION EPIDURAL STEROID [id number] 07/13/2025 11:00 AM CDT Office Visit [facility] Medical Group Multispecialty Care - [facility] 3 [facility], [address] [place] [address] Esau Hoff MD 3 [facility] [address] [place] [address] 09/13/2025 7:40 AM CONTAMINATION CONSULTANT Office Visit [facility] Medical Group Family & Internal Medicine - [address] [address] Kylee Villanueva MD [address] [place] [address] [place] [address] Scheduled Procedures Name Priority Associated Diagnoses Date/Ti me INJECTION TRIGGER POINT Myofascial pain 06/07/2025 5:00 PM CDT INJECTION EPIDURAL STEROID CERVICAL Cervical radiculopathy 07/13/2025 9:00 AM CDT documented as of this encounter Visit Diagnoses Not on filedocumented in this encounter Additional Health Concerns Infection Onset Date Last Indicated Resolved Time COVID-19 Rule Out 11/03/2024 11/03/2024 11/03/2024 10:48 AM CONTAMINATION CONSULTANT documented as of this encounter Care Teams State Game Warden Relationship Specialty Start [place] [address] [facility] [address] [place] [address] PCP - General FAMILY PRACTICE 06/07/23 Alberto Avendano MD NEUROLOGICAL SURGERY 11/24/21 documented as of this encounter
--- OUTSIDE RECORDS SUMMARY | 2025-05-30 05:01 | XMS_ITS | Encounter Summary ---
Author Organization [facility] Address [facility] [place] [address] Care Team Providers Care Milk Sampler Name Role Phone Viv Hamm Primary Care Provider [phone] Alberto Avendano MD Unavailable [phone] Kylee Villanueva MD Primary Care Provider [phone] Encounter Details Date Type Department Care Team (Late st Contact Info) Description 03/14/2021 Prep for Procedure [facility] Medical [facility] General Surgery [address], [address] [place] [address] Tracy Godoy MD [address] [address] Social History Tobacco Use Types [...] Sex Assigned at Female 11/14/2024 2:54 PM HUMAN RESOURCES RECRUITER Legal Sex Female 11:06 AM CDT Gender [...] Description 06/07/2025 5:00 PM CDT Hospital Encounter [facility] Interventional [place] [address] [id number] Elizabeth Ryedr MD Three [address] [address] 06/07/2025 5:00 PM CDT - 06/07/2025 5:20 PM CDT Surgery [facility] Interventional [place] [address] [id number] Elizabeth Ryder MD [address] [address] INJECTION TRIGGER POINT-cervivcal/th oracic 06/11/2025 2:40 PM CDT Office Visit [facility] Medical Group Orthopedic & Sports Medicine - [place] [address] [place] [address] Reynaldo Bunch MD [address] [place] [address] 07/13/2025 9:00 AM CDT Hospital Encounter [facility] [place] [address] [id number] Elizabeth Ryder MD Three [facility] [address] [place] [address] 07/13/2025 9:00 AM CDT - 07/13/2025 9:20 AM CDT Surgery [facility] Interventional [place] [address] [id number] Elizabeth Ryder MD Three [facility] [address] [place] [address] INJECTION EPIDURAL STEROID [id number] 07/13/2025 11:00 AM CDT Office Visit [facility] Multispecialty Care - [facility] 3 [facility], [address] [place] [address] Esau Hoff MD 3 [facility] [address] [place] [address] 09/13/2025 7:40 AM HUMAN RESOURCES RECRUITER Office Visit [facility] Medical [facility] Family & Internal Medicine [address] [address] Kylee Villanueva MD [address] [place] [address] [place] [address] Scheduled Procedures Name Priority Associated Diagnoses Date/Ti [...] Rule Out 12/13/2023 12/13/2023 12/13/2023 8:54 AM HUMAN RESOURCES RECRUITER COVID-19 Rule Out 08/30/2024 08/30/2024 08/30/2024 8:14 AM HUMAN RESOURCES RECRUITER COVID-19 Rule Out 11/03/2024 11/03/2024 11/03/2024 10:48 AM HUMAN RESOURCES RECRUITER documented as of this encounter Care Teams Milk Sampler Relationship Specialty [place] [address] [place] [address] PCP - General PHYSICIAN SUPERVISOR TANK CLEANING 02/03/21 06/06/23 [place] [address] [address] [place] [address] PCP - General FAMILY PRACTICE 06/07/23 [place] [address] [place] [address] NEUROLOGICAL SURGERY 11/24/21 documented as of this encounter
--- OUTSIDE RECORDS SUMMARY | 2025-05-30 05:01 | XMS_ITS | Encounter Summary ---
Author Organization [facility] Address [address] [place] [address] Phone Care Team Providers Care Bacteriology Teacher Name Role Phone Shane Noble MD Unavailable [phone] Kylee Villanueva MD Primary Care Provider [phone] Reynaldo Bunch MD Unavailable [phone] Reason for Visit * Reason Onset Date Comments Autonomic testing for dizziness 08/11/2024 Encounter Details Date Type Department Care Team (Late st Contact Info) Description 08/11/2024 Telephone [facility] Neuro Muscle [address] [facility] 6th [place] [address] [place] [address] Augustina Christie CMA Autonomic testing [...] 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 [place] [address] PCP - General Family Medicine 07/12/23 Shane Noble MD [address] [id number] Fellow Neurology 08/17/22 Reynaldo Bunch MD [address] [facility] [place] [address] Orthopedic Surgery 08/10/23 documented as of this encounter
--- OUTSIDE RECORDS SUMMARY | 2025-05-30 05:01 | XMS_ITS | Encounter Summary ---
Author Organization [facility] Address [address] [place] [address] Care Team Providers Care Steak Sauce Maker Name Role Phone Alberto Avendano MD Unavailable [phone] Kylee Villanueva MD Primary Care Provider [phone] Encounter Details Date Type Department Care Team (Late st Contact Info) Description 12/13/2024 Job36t Message Enc [facility] Medical Group Orthopedic & Sports Medicine - [place] [address] [place] [address] [phone] Reynaldo Bunch MD [address] [place] [address] Appt Social History Tobacco Use Types Packs/Day [...] Sex Assigned at Female 11/14/2024 2:54 PM GRAPPLE YARDER OPERATOR Legal Sex Female 11:06 AM CDT Gender Identity Female 05/11/2025 1:56 PM CDT Sexual Orientation Not on file documented as of this encounter Plan of Treatment Upcoming Encounters Date Type Department Care Team (Latest Contact Info) Description 06/07/2025 5:00 PM CDT Hospital Encounter [facility] Interventional [place] [address] [id number] Elizabeth Ryder MD Three [address] [address] 06/07/2025 5:00 PM CDT - 06/07/2025 5:20 PM CDT Surgery [facility] Interventional [place] [address] [id number] Elizabeth Ryder MD [address] [address] INJECTION TRIGGER POINT-cervivcal/th oracic 06/11/2025 2:40 PM CDT Office Visit [facility] Medical Group Orthopedic & Sports Medicine - [place] [address] [place] [address] Reynaldo Bunch MD [address] [place] [address] 07/13/2025 9:00 AM CDT Hospital Encounter [facility] Interventional [place] [address] [id number] Elizabeth Ryder MD Three [address] [address] 07/13/2025 9:00 AM CDT - 07/13/2025 9:20 AM CDT Surgery [facility] Interventional [place] [address] [id number] Elizabeth Ryder MD Three [facility] [address] [place] [address] INJECTION EPIDURAL STEROID [id number] 07/13/2025 11:00 AM CDT Office Visit [facility] Medical [facility] Multispecialty Care - [facility] 3 [facility], [address] [place] [address] Esau Hoff MD 3 [facility] [address] [place] [address] 09/13/2025 7:40 AM GRAPPLE YARDER OPERATOR Office Visit [facility] Medical [facility] Family & Internal Medicine [address] [address] [place] [address] [facility] [address] [place] [address] Scheduled Procedures Name Priority Associated Diagnoses Date/Ti me INJECTION TRIGGER POINT Myofascial pain 06/07/2025 5:00 PM CDT INJECTION EPIDURAL STEROID CERVICAL Cervical radiculopathy 07/13/2025 9:00 AM CDT documented as of this encounter Visit Diagnoses Not on filedocumented in this encounter Additional Health Concerns Assessment Noted Time PHQ-9 Depression Total Score: 2 12/11/19 25 1:50 PM GRAPPLE YARDER OPERATOR documented as of this encounter Care Teams Steak Sauce Maker Relationship Specialty Start [place] [address] [facility]. [address] [place] [address] PCP - General FAMILY PRACTICE 06/07/23 Alberto Avendano MD NEUROLOGICAL SURGERY 11/24/21 documented as of this encounter
--- OUTSIDE RECORDS SUMMARY | 2025-05-30 05:01 | XMS_ITS | Encounter Summary ---
Author Organization [facility] Address [address] [place] [address] Care Team Providers Care Monotype Machinist Name Role Phone Alberto Avendano MD Unavailable [phone] Kylee Villanueva MD Primary Care Provider [phone] Encounter Details Date Type Department Care Team (Late st Contact Info) Description 08/15/2024 Exepron Message Enc [facility] Medical Group Family & Internal Medicine [address] [address] Kylee Villanueva MD [address] [place] [address]. [address] [place] [address] Echocardiogram Social History Tobacco Use [...] Sex Assigned at Female 11/14/2024 2:54 PM FOUNTAIN BRUSH ASSEMBLER Legal Sex Female 11:06 AM CDT Gender Identity Female 05/11/2025 1:56 PM CDT Sexual Orientation Not on file documented as of this encounter Functional Status * Calculated C-SSRS Risk Score (Lifetime/Recent) Answer Date of Assessment Author Status No Risk Indicated 08/18/2024 11:37 AM CDT Mackenzie Monae RN Active * [place] Suicide Severity Rating Scale (Screener/Recent Self-Report) Question [...] [facility] Interventional [place] [address] [id number] Elizabeth Ryder MD Three [address] [address] 06/07/2025 5:00 PM CDT - 06/07/2025 5:20 PM CDT Surgery [facility] Interventional [place] [address] [id number] Elizabeth Ryder MD Three [facility] [address] [place] [address] INJECTION TRIGGER POINT-cervivcal/th oracic 06/11/2025 2:40 PM CDT Office Visit [facility] Orthopedic & Sports Medicine - [place] [address] [place] [address] Reynaldo Bunch MD [address] [place] [address] 07/13/2025 9:00 AM CDT Hospital Encounter [facility] Interventional [place] [address] [id number] Elizabeth Ryder MD Three [facility] [address] [place] [address] 07/13/2025 9:00 AM CDT - 07/13/2025 9:20 AM CDT Surgery [facility] Interventional Pain [place] [address] [id number] Elizabeth Ryder MD Three [facility] [address] [place] [address] INJECTION EPIDURAL STEROID [id number] 07/13/2025 11:00 AM CDT Office Visit [facility] Multispecialty Care - [facility] 3 [facility] [address] [place] [address] Esau Hoff MD 3 [facility] [address] [place] [address] 09/13/2025 7:40 AM FOUNTAIN BRUSH ASSEMBLER Office Visit [facility] Family & Internal Medicine - [address] [address] Kylee Villanueva MD [address] [place] [address] [place] [address] Scheduled Procedures Name Priority Associated Diagnoses Date/Ti me INJECTION TRIGGER POINT Myofascial pain 06/07/2025 5:00 PM CDT INJECTION EPIDURAL STEROID CERVICAL Cervical radiculopathy 07/13/2025 9:00 AM CDT documented as of this encounter Visit Diagnoses Not on filedocumented in this encounter Additional Health Concerns Infection Onset Date Last Indicated Resolved Time COVID-19 Rule Out 08/30/2024 08/30/2024 08/30/2024 8:14 AM FOUNTAIN BRUSH ASSEMBLER COVID-19 Rule Out 11/03/2024 11/03/2024 11/03/2024 10:48 AM FOUNTAIN BRUSH ASSEMBLER documented as of this encounter Care Teams Monotype Machinist Relationship Specialty Start [place] [address] [address] [place] [address] PCP - General FAMILY PRACTICE 06/07/23 Alberto Avendano MD NEUROLOGICAL SURGERY 11/24/21 documented as of this encounter
--- OUTSIDE RECORDS SUMMARY | 2025-05-30 05:01 | XMS_ITS | Encounter Summary ---
Author Organization [facility] Address [facility] [place] [address] Care Team Providers Care Corporate Travel Consultant Name Role Phone Viv Hamm Primary Care Provider [phone] Alberto Avendano MD Unavailable [phone] Kylee Villanueva MD Primary Care Provider [phone] Encounter Details Date Type Department Care Team (Late st Contact Info) Description 09/23/2022 [employer] Message Enc [facility] Medical Group Family & Internal Medicine [facility] [address] [place] [address] [place] Hamm [place] [id number] [place] [address] Blood Test results from Insurance application [...] Sex Assigned at Female 11/14/2024 2:54 PM DADO OPERATOR Legal Sex Female 11:06 AM CDT Gender Identity Female 05/11/2025 1:56 PM CDT Sexual Orientation Not on file COVID-19 Exposure Response Date Recorded In the last 10 days, have yo u been in contact with someone who was confirmed or suspected to have Coronavirus/COVID-19? No / Unsure 09/21/2022 1:58 PM DADO OPERATOR documented as of this encounter Plan of Treatment Upcoming Encounters Date Type Department Care Team (Latest Contact Info) Description 06/07/2025 5:00 PM CDT Hospital Encounter [facility] Interventional [place] [address] [id number] Elizabeth Ryder MD Three [facility] [address] [place] [address] 06/07/2025 5:00 PM CDT - 06/07/2025 5:20 PM CDT Surgery [facility] [place]ventional [place] [address] [id number] Elizabeth Ryder MD Three [facility] [address] [place] [address] INJECTION TRIGGER POINT-cervivcal/th oracic 06/11/2025 2:40 PM CDT Office Visit [facility] Medical Group Orthopedic & Sports Medicine - [place] [address] [place] [address] Reynaldo Bunch MD [address] [place] [address] 07/13/2025 9:00 AM CDT Hospital Encounter [facility] Interventional [place] [address] [id number] Elizabeth Ryder MD Three [facility] [address] [place] [address] 07/13/2025 9:00 AM CDT - 07/13/2025 9:20 AM CDT Surgery [facility] Interventional Pain [place] [address] [id number] Elizabeth Ryder MD Three [facility] [address] [place] [address] INJECTION EPIDURAL STEROID [id number] 07/13/2025 11:00 AM CDT Office Visit [facility] Medical [facility] Multispecialty Care - [facility] 3 [facility], [address] [place] [address] Esau Hoff MD 3 [facility] [address] [place] [address] 09/13/2025 7:40 AM DADO OPERATOR Office Visit [facility] Group Family & Internal Medicine - [address] [address] Kylee Villanueva MD [address] [place] [address] [place] [address] [phone] Scheduled Procedures Name Priority Associated Diagnoses Date/Ti me INJECTION TRIGGER POINT Myofascial pain 06/07/2025 5:00 PM CDT INJECTION EPIDURAL STEROID CERVICAL Cervical radiculopathy 07/13/2025 9:00 AM CDT documented as of this encounter Visit Diagnoses Not on filedocumented in this encounter Additional Health Concerns Infection Onset Date Last Indicated Resolved Time COVID-19 Rule Out 12/13/2023 12/13/2023 12/13/2023 8:54 AM DADO OPERATOR COVID-19 Rule Out 08/30/2024 08/30/2024 08/30/2024 8:14 AM DADO OPERATOR COVID-19 Rule Out 11/03/2024 11/03/2024 11/03/2024 10:48 AM DADO OPERATOR documented as of this encounter Care Teams Corporate Travel Consultant Relationship Specialty [place] [address] [place] [address] PCP - General PHYSICIAN VAULT WORKER 02/03/21 06/06/23 [place] [address] [place] [address] PCP - General FAMILY PRACTICE 06/07/23 [place] [address] [place] [address] NEUROLOGICAL SURGERY 11/24/21 documented as of this encounter
--- OUTSIDE RECORDS SUMMARY | 2025-05-30 05:01 | XMS_ITS | Encounter Summary ---
Author Organization [facility] Address [address] [place] [address] Care Team Providers Care Rotary Surface Grinder Name Role Phone Alberto Avendano MD Unavailable [phone] Kylee Villanueva MD Primary Care Provider [phone] Encounter Details Date Type Department Care Team (Late st Contact Info) Description 05/04/2025 [employer] Message Enc [facility] Interventional Pain Management [place], [place] [id number] Elizabeth Ryder MD Three [facility] [address] [place] [address] Steroid Shots Social History Tobacco [...] Sex Assigned at Female 11/14/2024 2:54 PM FINISHING TRIMMER Legal Sex Female 11:06 AM CDT Gender Identity Female 05/11/2025 1:56 PM CDT Sexual Orientation Not on file documented as of this encounter Plan of Treatment Upcoming Encounters Date Type Department Care Team (Latest Contact Info) Description 06/07/2025 5:00 PM CDT Hospital Encounter [facility] Interventional [place] [address] [id number] Elizabeth Ryder MD [address] [address] 06/07/2025 5:00 PM CDT - 06/07/2025 5:20 PM CDT Surgery [facility] [place] [address] [id number] Elizabeth Ryder MD [address] [address] INJECTION TRIGGER POINT-cervivcal/th oracic 06/11/2025 2:40 PM CDT Office Visit [facility] Medical Group Orthopedic & Sports Medicine - [place] [address] [place] [address] Reynaldo Bunch MD [address] [place] [address] 07/13/2025 9:00 AM CDT Hospital Encounter [facility] [place]ventional [place] [address] [id number] Elizabeth Ryder MD [address] [address] 07/13/2025 9:00 AM CDT - 07/13/2025 9:20 AM CDT Surgery [facility] Interventional [place] [address] [id number] Elizabeth Ryder MD Three [facility] [address] [place] [address] INJECTION EPIDURAL STEROID [id number] 07/13/2025 11:00 AM CDT Office Visit [facility] Multispecialty Care - [facility] 3 [facility] [address] [place] [address] Esau Hoff MD 3 [facility] [address] [place] [address] 09/13/2025 7:40 AM FINISHING TRIMMER Office Visit [facility] Medical Group Family & Internal Medicine - [address] [address] Kylee Villanueva MD [address] [place] [address] [place] [address] [phone] Scheduled Procedures Name Priority Associated Diagnoses Date/Ti [...] Total Score: 2 12/11/19 25 1:50 PM FINISHING TRIMMER documented as of this encounter Care Teams Rotary Surface Grinder Relationship Specialty Start [place] [address] [address] [place] [address] PCP - General FAMILY PRACTICE 06/07/23 Alberto Avendano MD NEUROLOGICAL SURGERY 11/24/21 documented as of this encounter
--- OUTSIDE RECORDS SUMMARY | 2025-05-30 05:01 | XMS_ITS | Encounter Summary ---
Author Organization [facility] Address [address] [place] [address] Care Team Providers Care Canteen Manager Name Role Phone Viv Hamm Primary Care Provider [phone] Alberto Avendano MD Unavailable [phone] Kylee Villanueva MD Primary Care Provider [phone] Reason for Referral * Surgical (Routine) - Closed Specialty Diagnoses / Procedures Referred By Ramonita franco Referred To Contact Diagnoses Lumbar radiculopathy Procedures Case request operating room: INJECTION EPIDURAL TRANSFORAMINAL [id number] Concha Albert NP [address] [facility] [address] [place] [address] Phone: tel: [phone] fax: Referral ID Status Reason Start Date Expiration Date Visits Re quested Visits Authorized [id number] Closed 10/06/2022 10/06/2023 1 1 ER ENGINEER Encounter Details Date Type Department Care Team (Late st Contact Info) Description 10/06/2022 Prep for Procedure [facility] Interventional Pain Management Center [place], [place] [id number] Concha Albert NP [address] [facility] [address] [place] [phone] (Work) Social History Tobacco Use Types Packs/Day [...] Sex Assigned at Female 11/14/2024 2:54 PM DRIVER ENGINEER Legal Sex Female 11:06 AM CDT Gender Identity Female 05/11/2025 1:56 PM CDT Sexual Orientation Not on file COVID-19 Exposure Response Date Recorded In the last 10 days, have yo u been in contact with someone who was confirmed or suspected to have Coronavirus/COVID-19? No / Unsure 10/06/2022 7:22 AM DRIVER ENGINEER documented as of this encounter Functional Status * Calculated C-SSRS Risk Score (Lifetime/Recent) Answer Date of Assessment Author Status No Risk Indicated 10/06/2022 7:33 AM Monica López RN Active * [place] Suicide Severity Rating Scale (Screener/Recent Self-Report) Question [...] [facility] [place] [address] [id number] Elizabeth Ryder MD Three [address] [address] 06/07/2025 5:00 PM CDT - 06/07/2025 5:20 PM CDT Surgery [facility] [place]ventional [place] [address] [id number] Elizabeth Ryder MD [address] [address] INJECTION TRIGGER POINT-cervivcal/th oracic 06/11/2025 2:40 PM CDT Office Visit [facility] Medical Group Orthopedic & Sports Medicine - [place] [address] [place] [address] Reynaldo Bunch MD [address] [place] [address] 07/13/2025 9:00 AM CDT Hospital Encounter [facility] Interventional [place] [address] [id number] Elizabeth Ryder MD Three [address] [address] 07/13/2025 9:00 AM CDT - 07/13/2025 9:20 AM CDT Surgery [facility] Interventional [place] [address] [id number] Elizabeth Ryder MD Three [facility] [address] [place] [address] INJECTION EPIDURAL STEROID [id number] 07/13/2025 11:00 AM CDT Office Visit [facility] Multispecialty Care - [facility] [address] [facility] [address] [place] [address] Esau Hoff MD 3 [facility] [address] [place] [address] 09/13/2025 7:40 AM DRIVER ENGINEER Office Visit [facility] Family & Internal Medicine [address] [address] Kylee Villanueva MD [address] [place] [address] [place] [address] [phone] Scheduled Orders Name Type Priority Associated Diagnoses [...] Rule Out 12/13/2023 12/13/2023 12/13/2023 8:54 AM DRIVER ENGINEER COVID-19 Rule Out 08/30/2024 08/30/2024 08/30/2024 8:14 AM DRIVER ENGINEER COVID-19 Rule Out 11/03/2024 11/03/2024 11/03/2024 10:48 AM DRIVER ENGINEER documented as of this encounter Care Teams Canteen Manager Relationship Specialty [place] [address] [place] [address] PCP - General PHYSICIAN PIVOT MAKER 02/03/21 06/06/23 [place] [address] [address] [place] [address] PCP - General FAMILY PRACTICE 06/07/23 [place] [address] [place] [address] NEUROLOGICAL SURGERY 11/24/21 documented as of this encounter
--- OUTSIDE RECORDS SUMMARY | 2025-05-30 05:01 | XMS_ITS | Clinical Summary ---
Author Organization [facility] Address [address] [place] [address] Care Team Providers Care Data Collection Technician Name Role Phone Alberto Avendano MD Unavailable [phone] Kylee Villanueva MD Primary Care Provider [phone] Allergies Active Allergy Reactions Criticality Noted Date [...] (09/09/2022): Added automatically from request for surgery [id number] Lumbar facet arthropathy 08/21/2022 Overview (08/21/2022): Added automatically from request for surgery [id number] NAFLD (nonalcoholic fatty liver disease) 022 Elevated [...] Type Department Care Team Description 05/25/2025 Scan [employer] SRVCS Scanned, [facility] 05/22/2025 MyChart Message Enc [facility] Orthopedic & Sports Medicine - [place] [address] [place] [address] Nitin Vaca MD Cast 05/21/2025 10:00 AM CDT Office Visit [facility] Orthopedic & Sports Medicine [facility] [address] [place] [address] Nitin Vaca MD Follow Up (Right tfcc) 05/21/2025 Travel 05/17/2025 MyChart Message Enc [facility] Family & Internal Medicine [address] [phone] Kylee Villanueva MD Intermittent FMLA 05/16/2025 Scan [facility] Scanned, [facility] 05/15/2025 MyChart Message Enc [facility] Orthopedic & Sports Medicine - [place] [address] [place] [address] Nitin Vaca MD Injections 05/11/2025 2:00 PM CDT Office Visit [facility] Family & Internal Medicine [address] [phone] Kylee Villanueva MD Follow Up (3 mo f/u- Hypertension- Intermittent FMLA , would like an extension ) 05/11/2025 Travel 05/04/2025 MyChart Message Enc [facility] Interventional [place] [address] [id number] Elizabeth Ryder MD Steroid Shots 05/02/2025 MyChart Message Enc [facility] Family & Internal Medicine [facility] [address] [place] [address] Kylee Villanueva MD Anxiety 04/30/2025 MyChart Message Enc [facility] Orthopedic & Sports Medicine [facility] [address] [place] [address] Nitin Vaca MD Question 04/23/2025 11:00 AM CDT Office Visit [facility] Orthopedic & Sports [facility] [address] [place] [address] Niitn Vaca MD Follow Up (Right tfcc ) 04/23/2025 Travel 04/18/2025 MyChart Message Enc [facility] Orthopedic & Sports [facility] [address] [place] [address] Nitin Vaca MD MRI Results 04/13/2025 1:42 PM CDT - 04/13/2025 11:59 PM CDT Hospital Encounter [facility] [place] [address] Nitin Vaca MD Discharge Disposition: Home or Self Care (Routine Discharge) 04/13/2025 Travel 03/27/2025 10:54 AM CDT - 03/27/2025 11:59 PM CDT Hospital Encounter [facility] Interventional [place] [address] [id number] Jacob Middleton CNP Discharge Disposition: Home or Self Care (Routine Discharge) 03/27/2025 Travel 03/26/2025 10:20 AM CDT Office Visit [facility] Orthopedic & Sports Medicine [facility] [address] [place] [address] Nitin Vaca MD Follow Up (Right wrist pain ) 03/26/2025 MyChart Message Enc [facility] Orthopedic & Sports [facility] [address] [place] [address] Nitin Vaca MD MRI 03/26/2025 Travel 03/02/2025 Orders Only [facility] Orthopedic Sports [facility] [address] [place] [address] Merrill Hammond MD 03/01/2025 8:40 AM CDT Office Visit [facility] [address] [place] [address] Merrill Hammond MD Follow Up (Rt shoulder MRI and NCV) 03/01/2025 MyChart Message Enc [facility] Orthopedic [facility] [address] [place] [address] Merrill Hammond MD Referral 03/01/2025 MyChart Message Enc [facility] Interventional [place] [address] [id number] [facility] Provider Ref 03/01/2025 MyChart Message Enc [facility] Interventional [place] [address] [id number] Elizabeth Ryder MD Referral 03/01/2025 Travel from [...] Sex Assigned at Female 11/14/2024 2:54 PM COMMUTATOR INSPECTOR Legal Sex Female 11:06 AM CDT [...] [facility] Interventional [place] [address] [id number] Elizabeth Ryder MD Three [address] [address] 06/07/2025 5:00 PM CDT - 06/07/2025 5:20 PM CDT Surgery [facility] Interventional [place] [address] [id number] Elizabeth Ryder MD Three [address] [address] INJECTION TRIGGER POINT-cervivcal/th oracic 06/11/2025 2:40 PM CDT Office Visit [facility] Orthopedic & Sports Medicine - [place] [address] [place] [address] Nitin Vaca MD [address] [place] [address] 07/13/2025 9:00 AM CDT Hospital Encounter [facility] Interventional [place] [address] [id number] Elizabeth Ryder MD Three [facility] [address] [place] [address] 07/13/2025 9:00 AM CDT - 07/13/2025 9:20 AM CDT Surgery [facility] Interventional Pain [place] [address] [id number] Elizabeth Ryder MD Three [facility] [address] [place] [address] INJECTION EPIDURAL STEROID [id number] 07/13/2025 11:00 AM CDT Office Visit [facility] Medical [facility] Multispecialty Care - [facility] 3 [facility] [address] [place] [address] Esau Hoff MD 3 [facility] [place] [address] 09/13/2025 7:40 AM COMMUTATOR INSPECTOR Office Visit [facility] Group Family & Internal Medicine - [address] [address] Kylee Villanueva MD [address] [place] [address] [address] [place], [place] [phone] Scheduled Procedures Name Priority Associated Diagnoses Date/Ti [...] C Completed 05/14/2022, 04/25, 05/14/2022 PHQ-2 (Physician Jackson) Completed 01/08/2025 Meningococcal B Vaccine Aged Out [...] CERV/VAG THIN LAYER Routine 08/30/2024 8:15 AM COMMUTATOR INSPECTOR Cervical cancer screening MAMMOGRAM GENERIC (SCAN ORDER) [...] 12:41 PM Narrative 04/17/2025 12:[address] [address] EXAMINATION: MRI ARTHROGRAM RIGHT WRIST EXAM DATE: [...] Procedure Note Cale Cervantes MD - 04/17/[address] [address] EXAMINATION: MRI ARTHROGRAM RIGHT WRIST EXAM DATE: [...] 2:17 PM Narrative 04/13/2025 2:[address] PM [address] [address] Examination: IR arthrogram right wrist Exam date/time: 04/13/2025 2:00 PM Indication: 54 female. Right wrist pain . Triangular fibrocartilage complex injury evaluation Comparison: None Procedure technique: Patient informed verbal and written consent was obtained from the patient, patient's medical power of strategies analyst. The procedure was discussed including the rationale, [...] Procedure Note Ace Hannah MD - 04/13/[address] [address] Examination: IR arthrogram right wrist Exam date/time: 04/13/2025 2:00 PM Indication: 54 female. Right wrist pain . Triangular fibrocartilagecomplex injury evaluation Comparison: None Procedure technique: Patient informed verbal and written consent wasobtained from the patient, patient's medical power of strategies analyst. Theprocedure was discussed including the rationale, alternatives, [...] Cytopath Cerv/Vag Thin Layer (08/30/2024 8:15 AM COMMUTATOR INSPECTOR) CLINICAL INFORMATION: Postmenopausal [place] Clinical Information: 06/23/2020 [place] Date of Last Pap NONE GIVEN [facility] [place] Previous Biopsy? NONE GIVEN [facility] [place] SOURCE (QST) Cervix, Endocervix [place] STATEMENT OF ADEQUACY: [place] Comment: Satisfactory for evaluation. Endocervical/transformation zone component absent. PAP INTERPRETATION/RESU LTS Cytology Results: Negative for intraepithelial lesion or malignancy. [place] COMMENT: This Pap test has been evaluated with computer assisted technology. [place] TRANSFER CONTROLLER [place] Comment: YQ, CT(ASCP) CT screening location: [facility] [address] [address] [place] [address] COMMENT: [place] Comment: EXPLANATORY NOTE: The Pap is [...] and current clinical information. 08/30/2024 8:15 AM COMMUTATOR INSPECTOR 08/31/2024 4:37 AM COMMUTATOR INSPECTOR Narrative Resulting Agency Comment Performing Organization Information: Site ID: [id number] Name: [facility] Address: [address] [place] [address] Director: Akbar Gore us Viv METZ PATHOLOGY/CYTOLOGY ORDERABLE S Final Result [facility] [place] [address] [place] [address], [place] * MAMMOGRAM GENERIC (SCAN ORDER) (12/06/2023) Anatomical Region Laterality Modality Other 12/06/2023 us [facility] Scanned SCANNING Final Resu lt from Last 3 Months or Most Recently Relevant to Health Maintenance Additional Health Concerns Active Problems Noted Date Diagnosed Date Autogenerated Problem 05/22/2025 Insurance [employer] Care Teams Data Collection Technician Relationship Specialty Start [place] [address] [facility] [place] [address] PCP - General FAMILY PRACTICE 06/07/23 Alberto Avendano MD NEUROLOGICAL SURGERY 11/24/21
--- OUTSIDE RECORDS SUMMARY | 2025-05-30 05:01 | XMS_ITS | Encounter Summary ---
Author Organization [facility] Address [address] [place] [address] Care Team Providers Care Scientific Laboratory Supervisor Name Role Phone Alberto Avendano MD Unavailable [phone] Kylee Villanueva MD Primary Care Provider [phone] Encounter Details Date Type Department Care Team (Late st Contact Info) Description 11/30/2024 Bulu Boxt Message Enc [facility] Medical Group Orthopedic & Sports Medicine - [place] [address] [place] [address] [phone] Reynaldo Bunch MD [address] [place] [address] Changes Social History Tobacco Use Types Packs/Day [...] Sex Assigned at Female 11/14/2024 2:54 PM BUSINESS AREA MANAGER Legal Sex Female 11:06 AM CDT Gender Identity Female 05/11/2025 1:56 PM CDT Sexual Orientation Not on file documented as of this encounter Plan of Treatment Upcoming Encounters Date Type Department Care Team (Latest Contact Info) Description 06/07/2025 5:00 PM CDT Hospital Encounter [facility] [place] [address] [id number] Elizabeth Ryder MD Three [address] [address] 06/07/2025 5:00 PM CDT - 06/07/2025 5:20 PM CDT Surgery [facility] [place] [address] [id number] Elizabeth Ryder MD [address] [address] INJECTION TRIGGER POINT-cervivcal/th oracic 06/11/2025 2:40 PM CDT Office Visit [facility] Medical Group Orthopedic & Sports Medicine - [place] [address] [place] [address] Reynaldo Bunch MD [address] [place] [address] 07/13/2025 9:00 AM CDT Hospital Encounter [facility] [place] [address] [id number] Elizabeth Ryder MD Three [address] [address] 07/13/2025 9:00 AM CDT - 07/13/2025 9:20 AM CDT Surgery [facility] Interventional Pain Management [place] [address] [id number] Elizabeth Ryder MD Three [facility] [address] [place] [address] INJECTION EPIDURAL STEROID [id number] 07/13/2025 11:00 AM CDT Office Visit [facility] Multispecialty Care - [facility] 3 [facility], [address] [place] [address] Esau Hoff MD 3 [facility] [address] [place] [address] 09/13/2025 7:40 AM BUSINESS AREA MANAGER Office Visit [facility] Family & Internal Medicine [address] [address] Kylee Villanueva MD [address] [place] [address] [place] [address] Scheduled Procedures Name Priority Associated Diagnoses Date/Ti me INJECTION TRIGGER POINT Myofascial pain 06/07/2025 5:00 PM CDT INJECTION EPIDURAL STEROID CERVICAL Cervical radiculopathy 07/13/2025 9:00 AM CDT documented as of this encounter Visit Diagnoses Not on filedocumented in this encounter Care Teams Scientific Laboratory Supervisor Relationship Specialty Start Date End Date Kylee Villanueva MD [address] [place] [address] [place] [address] PCP - General FAMILY PRACTICE 06/07/23 Alberto Avendano MD NEUROLOGICAL SURGERY 11/24/21 documented as of this encounter
--- OUTSIDE RECORDS SUMMARY | 2025-05-30 05:01 | XMS_ITS | Encounter Summary ---
Author Organization [facility] Address [facility] [place] [address] Care Team Providers Care Job Hand Name Role Phone Viv Hamm Primary Care Provider [phone] Alberto Avendano MD Unavailable [phone] Kylee Villanueva MD Primary Care Provider [phone] Encounter Details Date Type Department Care Team (Late st Contact Info) Description 03/17/2021 Pomelohart Message Enc [facility] Medical Group General Surgery [address], [address] [place] [address] Tracy Godoy MD [address] [address] Other Social History Tobacco Use [...] Sex Assigned at Female 11/14/2024 2:54 PM MEDICAL AIDE Legal Sex Female 11:06 AM CDT Gender [...] Description 06/07/2025 5:00 PM CDT Hospital Encounter [facility] Interventional [place] [address] [id number] Elizabeth Ryder MD Three [address] [address] 06/07/2025 5:00 PM CDT - 06/07/2025 5:20 PM CDT Surgery [facility] [place] [address] [id number] Elizabeth Ryder MD [address] [address] INJECTION TRIGGER POINT-cervivcal/th oracic 06/11/2025 2:40 PM CDT Office Visit [facility] Medical Group Orthopedic & Sports Medicine - [place] [address] [place] [address] Reynaldo Bunch MD [address] [place] [address] 07/13/2025 9:00 AM CDT Hospital Encounter [facility] [place] [address] [id number] Elizabeth Ryder MD Three [facility] [address] [place] [address] 07/13/2025 9:00 AM CDT - 07/13/2025 9:20 AM CDT Surgery [facility] Interventional [place] [address] [id number] Elizabeth Ryder MD Three [facility] [address] [place] [address] INJECTION EPIDURAL STEROID [id number] 07/13/2025 11:00 AM CDT Office Visit [facility] Multispecialty Care - [facility] 3 [facility] [address] [place] [address] Esau Hoff MD 3 [facility] [address] [place] [address] 09/13/2025 7:40 AM MEDICAL AIDE Office Visit [facility] Medical [facility] Family & Internal Medicine - [address] [address] Kylee Villanueva MD [address] [place] [address] [place] [address] [phone] Scheduled Procedures Name Priority Associated Diagnoses Date/Ti me INJECTION TRIGGER POINT Myofascial pain 06/07/2025 5:00 PM CDT INJECTION EPIDURAL STEROID CERVICAL Cervical radiculopathy 07/13/2025 9:00 AM CDT documented as of this encounter Visit Diagnoses Not on filedocumented in this encounter Additional Health Concerns Infection Onset Date Last Indicated Resolved Time COVID-19 Rule Out 12/13/2023 12/13/2023 12/13/2023 8:54 AM MEDICAL AIDE COVID-19 Rule Out 08/30/2024 08/30/2024 08/30/2024 8:14 AM MEDICAL AIDE COVID-19 Rule Out 11/03/2024 11/03/2024 11/03/2024 10:48 AM MEDICAL AIDE documented as of this encounter Care Teams Job Hand Relationship Specialty [place] [address] [place] [address] PCP - General PHYSICIAN CONSTRUCTION ACCOUNTANT 02/03/21 06/06/23 [place] [address] [address] [place] [address] PCP - General FAMILY PRACTICE 06/07/23 [place] [address] [place] [address] NEUROLOGICAL SURGERY 11/24/21 documented as of this encounter
--- OUTSIDE RECORDS SUMMARY | 2025-05-30 05:01 | XMS_ITS | Encounter Summary ---
Author Organization [facility] Address [facility] [place] [address] Care Team Providers Care Fabric And Textile Factory Worker Name Role Phone Viv Hamm Primary Care Provider [phone] Alberto Avendano MD Unavailable [phone] Kylee Villanueva MD Primary Care Provider [phone] Encounter Details Date Type Department Care Team (Late st Contact Info) Description 04/02/2021 Apiphanyhart Message Enc [facility] Medical Group General Surgery [address], [address] [place] [address] Tracy Godoy MD [address] [address] Other Social History Tobacco Use [...] Sex Assigned at Female 11/14/2024 2:54 PM HOUSE CLEANER SUPERVISOR Legal Sex Female 11:06 AM CDT [...] 06/07/2025 5:00 PM CDT Hospital Encounter [facility] Interventional [place] [address] [id number] Elizabeth Ryder MD [address] [address] 06/07/2025 5:00 PM CDT - 06/07/2025 5:20 PM CDT Surgery [facility] [place] [address] [id number] Elizabeth Ryder MD [address] [address] INJECTION TRIGGER POINT-cervivcal/th oracic 06/11/2025 2:40 PM CDT Office Visit [facility] Medical Group Orthopedic & Sports Medicine - [place] [address] [place] [address] Reynaldo Bunch MD [address] [place] [address] 07/13/2025 9:00 AM CDT Hospital Encounter [facility] [place] [address] [id number] Elizabeth Ryder MD Three [facility] [address] [place] [address] 07/13/2025 9:00 AM CDT - 07/13/2025 9:20 AM CDT Surgery [facility] Interventional [place] [address] [id number] Elizabeth Ryder MD Three [facility] [address] [place] [address] INJECTION EPIDURAL STEROID [id number] 07/13/2025 11:00 AM CDT Office Visit [facility] Multispecialty Care - [facility] 3 [facility] [address] [place] [address] Esau Hoff MD 3 [facility] [address] [place] [address] 09/13/2025 7:40 AM HOUSE CLEANER SUPERVISOR Office Visit [facility] Medical [facility] Family & Internal Medicine - [address] [address] Kylee Villanueva MD [address] [place] [address] [place] [phone] Scheduled Procedures Name Priority Associated Diagnoses Date/Ti me INJECTION TRIGGER POINT Myofascial pain 06/07/2025 5:00 PM CDT INJECTION EPIDURAL STEROID CERVICAL Cervical radiculopathy 07/13/2025 9:00 AM CDT documented as of this encounter Visit Diagnoses Not on filedocumented in this encounter Additional Health Concerns Infection Onset Date Last Indicated Resolved Time COVID-19 Rule Out 12/13/2023 12/13/2023 12/13/2023 8:54 AM HOUSE CLEANER SUPERVISOR COVID-19 Rule Out 08/30/2024 08/30/2024 08/30/2024 8:14 AM HOUSE CLEANER SUPERVISOR COVID-19 Rule Out 11/03/2024 11/03/2024 11/03/2024 10:48 AM HOUSE CLEANER SUPERVISOR documented as of this encounter Care Teams Fabric And Textile Factory Worker Relationship Specialty [place] [address] [place] [address] PCP - General PHYSICIAN FILENET ADMIN 02/03/21 06/06/23 [place] [address] [address] [place] [address] PCP - General FAMILY PRACTICE 06/07/23 [place] [address] [place] [address] NEUROLOGICAL SURGERY 11/24/21 documented as of this encounter
--- OUTSIDE RECORDS SUMMARY | 2025-05-30 05:01 | XMS_ITS | Encounter Summary ---
Author Organization [facility] Address [address] [place] [address] Care Team Providers Care Sales And Marketing Associate Name Role Phone Viv Hamm Primary Care Provider [phone] Alberto Avendano MD Unavailable [phone] Kylee Villanueva MD Primary Care Provider [phone] Encounter Details Date Type Department Care Team (Late st Contact Info) Description 03/02/2021 MyChart Message Enc [facility] Medical Group Family & Internal Medicine [facility] [address] [place] [address] [place] [address] [place] [address] RE: Test Results Social History Tobacco [...] Assigned at Female 11/14/2024 2:54 PM GAS SCRUBBER OPERATOR Legal Sex Female 11:06 AM CDT [...] Description 06/07/2025 5:00 PM CDT Hospital Encounter [facility] Interventional [place] [address] [id number] Elizabeth Ryder MD Three [address] [address] 06/07/2025 5:00 PM CDT - 06/07/2025 5:20 PM CDT Surgery [facility] Interventional [place] [address] [id number] Elizabeth Ryder MD Three [address] [address] INJECTION TRIGGER POINT-cervivcal/th oracic 06/11/2025 2:40 PM CDT Office Visit [facility] Medical Group Orthopedic & Sports Medicine - [place] [address] [place] [address] Reynaldo Bunch MD [address] [place] [address] 07/13/2025 9:00 AM CDT Hospital Encounter [facility] Interventional [place] [address] [id number] Elizabeth Ryder MD Three [facility] [address] [place] [address] 07/13/2025 9:00 AM CDT - 07/13/2025 9:20 AM CDT Surgery [facility] Interventional [place] [address] [id number] Elizabeth Ryder MD Three [facility] [address] [place] [address] INJECTION EPIDURAL STEROID [id number] 07/13/2025 11:00 AM CDT Office Visit [facility] Multispecialty Care - [facility] 3 [facility] [address] [place] [address] Esau Hoff MD 3 [facility] [address] [place] [address] 09/13/2025 7:40 AM GAS SCRUBBER OPERATOR Office Visit [facility] Medical [facility] Family & Internal Medicine - [address] [address] Kylee Villanueva MD [address] [place] [address] [place] [phone] Scheduled Procedures Name Priority Associated Diagnoses Date/Ti me INJECTION TRIGGER POINT Myofascial pain 06/07/2025 5:00 PM CDT INJECTION EPIDURAL STEROID CERVICAL Cervical radiculopathy 07/13/2025 9:00 AM CDT documented as of this encounter Visit Diagnoses Not on filedocumented in this encounter Additional Health Concerns Infection Onset Date Last Indicated Resolved Time COVID-19 Rule Out 12/13/2023 12/13/2023 12/13/2023 8:54 AM GAS SCRUBBER OPERATOR COVID-19 Rule Out 08/30/2024 08/30/2024 08/30/2024 8:14 AM GAS SCRUBBER OPERATOR COVID-19 Rule Out 11/03/2024 11/03/2024 11/03/2024 10:48 AM GAS SCRUBBER OPERATOR documented as of this encounter Care Teams Sales And Marketing Associate Relationship Specialty [place] [address] [place] [address] PCP - General PHYSICIAN HUMAN RESOURCES LEADER 02/03/21 06/06/23 [place] [address] [address] [place] [address] PCP - General FAMILY PRACTICE 06/07/23 [place] [address] [place] [address] NEUROLOGICAL SURGERY 11/24/21 documented as of this encounter
--- OUTSIDE RECORDS SUMMARY | 2025-05-30 05:01 | XMS_ITS | Encounter Summary ---
Author Organization [facility] Address [facility] [place] [address] Care Team Providers Care Research And Development Manager Name Role Phone Viv Hamm Primary Care Provider [phone] Alberto Avendano MD Unavailable [phone] Kylee Villanueva MD Primary Care Provider [phone] Encounter Details Date Type Department Care Team (Late st Contact Info) Description 10/20/[address] [facility] Medical Group Multispecialty Care - [facility] 3 [facility] [address], [address] [place] [address] Shane Noble MD [address] [place] [address] Orbital MRI Social History Tobacco Use Types [...] Sex Assigned at Female 11/14/2024 2:54 PM JIG AND FIXTURE MAKER Legal Sex Female 11:06 AM CDT Gender Identity Female 05/11/2025 1:56 PM CDT Sexual Orientation Not on file COVID-19 Exposure Response Date Recorded In the last month, have you been in contact with someone who was confirmed or suspected to have Coronavirus / COVID-19? No / Unsure 10/21/2021 7:39 AM JIG AND FIXTURE MAKER documented as of this encounter Plan of Treatment Upcoming Encounters Date Type Department Care Team (Latest Contact Info) Description 06/07/2025 5:00 PM CDT Hospital Encounter [facility] Interventional [place] [address] [id number] Elizabeth Ryder MD Three [address] [address] 06/07/2025 5:00 PM CDT - 06/07/2025 5:20 PM CDT Surgery [facility] [place] [address] [id number] Elizabeth Ryder MD [address] [address] INJECTION TRIGGER POINT-cervivcal/th oracic 06/11/2025 2:40 PM CDT Office Visit [facility] Medical Group Orthopedic & Sports Medicine - [place] [address] [place] [address] Reynaldo Bunch MD [address] [place] [address] 07/13/2025 9:00 AM CDT Hospital Encounter [facility] [place] [address] [id number] Elizabeth Ryder MD Three [facility] [address] [place] [address] 07/13/2025 9:00 AM CDT - 07/13/2025 9:20 AM CDT Surgery [facility] Interventional [place] [address] [id number] Elizabeth Ryder MD Three [facility] [address] [place] [address] INJECTION EPIDURAL STEROID [id number] 07/13/2025 11:00 AM CDT Office Visit [facility] Multispecialty Care - [facility] 3 [facility], [address] [place] [address] Esau Hoff MD [address] [address] 09/13/2025 7:40 AM JIG AND FIXTURE MAKER Office Visit [facility] Medical [facility] Family & Internal Medicine - [address] [address] Kylee Villanueva MD [address] [place] [address] [place] [address] Scheduled Procedures Name Priority Associated Diagnoses Date/Ti me INJECTION TRIGGER POINT Myofascial pain 06/07/2025 5:00 PM CDT INJECTION EPIDURAL STEROID CERVICAL Cervical radiculopathy 07/13/2025 9:00 AM CDT documented as of this encounter Visit Diagnoses Not on filedocumented in this encounter Additional Health Concerns Infection Onset Date Last Indicated Resolved Time COVID-19 Rule Out 12/13/2023 12/13/2023 12/13/2023 8:54 AM JIG AND FIXTURE MAKER COVID-19 Rule Out 08/30/2024 08/30/2024 08/30/2024 8:14 AM JIG AND FIXTURE MAKER COVID-19 Rule Out 11/03/2024 11/03/2024 11/03/2024 10:48 AM JIG AND FIXTURE MAKER documented as of this encounter Care Teams Research And Development Manager Relationship Specialty [place] [address] [place] [address] PCP - General PHYSICIAN ASSEMBLY ADJUSTER 02/03/21 06/06/23 [place] [address] [address] [place] [address] PCP - General FAMILY PRACTICE 06/07/23 [place] [address] [place] [address] NEUROLOGICAL SURGERY 11/24/21 documented as of this encounter
--- OUTSIDE RECORDS SUMMARY | 2025-05-30 05:01 | XMS_ITS | Encounter Summary ---
Author Organization [facility] Address [address] [place] [address] Care Team Providers Care Paint Mixer Name Role Phone Alberto Avendano MD Unavailable [phone] Kylee Villanueva MD Primary Care Provider [phone] Encounter Details Date Type Department Care Team (Late st Contact Info) Description 04/18/2025 PingStampt Message Enc [facility] Medical Group Orthopedic & Sports Medicine - [place] [address] [place] [address] [phone] Reynaldo Bunch MD [address] [place], [place] [address] 052- MRI Results Social History Tobacco Use Types [...] Assigned at Female 11/14/2024 2:54 PM OVEN PRESS TENDER Legal Sex Female 11:06 AM CDT Gender Identity Female 05/11/2025 1:56 PM CDT Sexual Orientation Not on file documented as of this encounter Plan of Treatment Upcoming Encounters Date Type Department Care Team (Latest Contact Info) Description 06/07/2025 5:00 PM CDT Hospital Encounter [facility] [place] [address] [id number] Elizabeth Ryder MD Three [address] [address] 06/07/2025 5:00 PM CDT - 06/07/2025 5:20 PM CDT Surgery [facility] Interventional [place] [address] [id number] Elizabeth Ryder MD [address] [address] INJECTION TRIGGER POINT-cervivcal/th oracic 06/11/2025 2:40 PM CDT Office Visit [facility] Medical Group Orthopedic & Sports Medicine - [place] [address] [place] [address] Reynaldo Bunch MD [address] [place] [address] 07/13/2025 9:00 AM CDT Hospital Encounter [facility] Interventional [place] [address] [id number] Elizabeth Ryder MD Three [address] [address] 07/13/2025 9:00 AM CDT - 07/13/2025 9:20 AM CDT Surgery [facility] Interventional [place] [address] [id number] Elizabeth Ryder MD Three [facility] [address] [place] [address] INJECTION EPIDURAL STEROID [id number] 07/13/2025 11:00 AM CDT Office Visit [facility] Multispecialty Care - [facility] 3 [facility] [address] [place] [address] Esau Hoff MD 3 [facility] [address] [place] [address] 09/13/2025 7:40 AM OVEN PRESS TENDER Office Visit [facility] Medical [facility] Family & Internal Medicine - [address] [address] Kylee Villanueva MD [address] [place] [address] [place] [address] [id number] Scheduled Procedures Name Priority Associated Diagnoses Date/Ti [...] Score: 2 12/11/19 25 1:50 PM OVEN PRESS TENDER documented as of this encounter Care Teams Paint Mixer Relationship Specialty Start [place] [address] [facility] [place] [address] PCP - General FAMILY PRACTICE 06/07/23 Alberto Avendano MD NEUROLOGICAL SURGERY 11/24/21 documented as of this encounter
--- OUTSIDE RECORDS SUMMARY | 2025-05-30 05:01 | XMS_ITS | Encounter Summary ---
Author Organization [facility] Address [facility] [place] [address] Care Team Providers Care Thermal Technician Name Role Phone Viv Hamm Primary Care Provider [phone] Alberto Avendano MD Unavailable [phone] Kylee Villanueva MD Primary Care Provider [phone] Encounter Details Date Type Department Care Team (Latest Contact Info) Description 09/10/2022 MyChart Message Enc [facility] Medical Group Multispecialty Care - [facility], [address] [place] [address] Shane Noble MD 1 [place] [address] Notes from Neurosurgeon Social History Tobacco Use [...] Sex Assigned at Female 11/14/2024 2:54 PM CANDY SPREADER Legal Sex Female 11:06 AM CDT Gender Identity Female 05/11/2025 1:56 PM CDT Sexual Orientation Not on file COVID-19 Exposure Response Date Recorded In the last 10 days, have yo u been in contact with someone who was confirmed or suspected to have Coronavirus/COVID-19? No / Unsure 09/07/2022 3:39 PM CANDY SPREADER documented as of this encounter Plan of Treatment Upcoming Encounters Date Type Department Care Team (Latest Contact Info) Description 06/07/2025 5:00 PM CDT Hospital Encounter [facility] Interventional [place] [address] [id number] Elizabeth Ryder MD Three [facility] [address] [place] [address] 06/07/2025 5:00 PM CDT - 06/07/2025 5:20 PM CDT Surgery [facility] [place] [address] [id number] Elizabeth Ryder MD Three [facility] [address] [place] [address] INJECTION TRIGGER POINT-cervivcal/th oracic 06/11/2025 2:40 PM CDT Office Visit [facility] Medical Group Orthopedic & Sports Medicine - [place] [address] [place] [address] Reynaldo Bunch MD [address] [place] [address] 07/13/2025 9:00 AM CDT Hospital Encounter [facility] Interventional [place] [address] [id number] Elizabeth Ryder MD Three [facility] [address] [place] [address] 07/13/2025 9:00 AM CDT - 07/13/2025 9:20 AM CDT Surgery [facility] Interventional Pain [place] [address] [id number] Elizabeth Ryder MD Three [facility] [address] [place] [address] INJECTION EPIDURAL STEROID [id number] 07/13/2025 11:00 AM CDT Office Visit [facility] Medical [facility] Multispecialty Care - [facility] 3 [facility], [address] [place] [address] Esau Hoff MD 3 [facility] [place] [address] 09/13/2025 7:40 AM CANDY SPREADER Office Visit [facility] Medical Group Family & Internal Medicine - [address] [address] Kylee Villanueva MD [address] [place] [address] [place] [address] [id number] Scheduled Procedures Name Priority Associated Diagnoses Date/Ti me INJECTION TRIGGER POINT Myofascial pain 06/07/2025 5:00 PM CDT INJECTION EPIDURAL STEROID CERVICAL Cervical radiculopathy 07/13/2025 9:00 AM CDT documented as of this encounter Visit Diagnoses Not on filedocumented in this encounter Additional Health Concerns Infection Onset Date Last Indicated Resolved Time COVID-19 Rule Out 12/13/2023 12/13/2023 12/13/2023 8:54 AM CANDY SPREADER COVID-19 Rule Out 08/30/2024 08/30/2024 08/30/2024 8:14 AM CANDY SPREADER COVID-19 Rule Out 11/03/2024 11/03/2024 11/03/2024 10:48 AM CANDY SPREADER documented as of this encounter Care Teams Thermal Technician Relationship Specialty [place] [address] [place] [address] PCP - General PHYSICIAN PHYSICIAN VICE PRESIDENT 02/03/21 06/06/23 [place] [address] [address] [address] PCP - General FAMILY PRACTICE 06/07/23 [place] [address] [facility] [place] [address] NEUROLOGICAL SURGERY 11/24/21 documented as of this encounter
--- OUTSIDE RECORDS SUMMARY | 2025-05-30 05:01 | XMS_ITS | Encounter Summary ---
Author Organization [facility] Address [address] [place] [address] Care Team Providers Care Butcher Meat Name Role Phone Alberto Avendano MD Unavailable [phone] Kylee Villanueva MD Primary Care Provider [phone] Encounter Details Date Type Department Care Team (Late st Contact Info) Description 01/09/2025 [employer] Message Enc [facility] Medical Group Family & Internal Medicine [address] [address] Kylee Villanueva MD [address] [place] [address]. [address] [place] [address] Prescription Social History Tobacco Use [...] Sex Assigned at Female 11/14/2024 2:54 PM FREIGHT LOADER Legal Sex Female 11:06 AM CDT Gender Identity Female 05/11/2025 1:56 PM CDT Sexual Orientation Not on file documented as of this encounter Plan of Treatment Upcoming Encounters Date Type Department Care Team (Latest Contact Info) Description 06/07/2025 5:00 PM CDT Hospital Encounter [facility] [place] [address] [id number] Elizabeth Ryder MD [address] [address] 06/07/2025 5:00 PM CDT - 06/07/2025 5:20 PM CDT Surgery [facility] [place]ventional [place] [address] [id number] Elizabeth Ryder MD [address] [address] INJECTION TRIGGER POINT-cervivcal/th oracic 06/11/2025 2:40 PM CDT Office Visit [facility] Medical Group Orthopedic & Sports Medicine - [place] [address] [place] [address] Reynaldo Bunch MD [address] [place] [address] 07/13/2025 9:00 AM CDT Hospital Encounter [facility] Interventional [place] [address] [id number] Elizabeth Ryder MD Three [address] [address] 07/13/2025 9:00 AM CDT - 07/13/2025 9:20 AM CDT Surgery [facility] Interventional [place] [address] [id number] Elizabeth Ryder MD Three [facility] [address] [place] [address] INJECTION EPIDURAL STEROID [id number] 07/13/2025 11:00 AM CDT Office Visit [facility] Medical [facility] Multispecialty Care - [facility] 3 [facility] [address] [place] [address] Esau Hoff MD 3 [facility] [address] [place] [address] 09/13/2025 7:40 AM FREIGHT LOADER Office Visit [facility] Medical [facility] Family & Internal Medicine - [address] [address] Kylee Villanueva MD [address] [place] [address] Scheduled Procedures Name Priority Associated Diagnoses Date/Ti [...] Total Score: 2 12/11/19 25 1:50 PM FREIGHT LOADER documented as of this encounter Care Teams Butcher Meat Relationship Specialty [place] [address] [address] [place] [address] PCP - General FAMILY PRACTICE 06/07/23 Alberto Avendano MD NEUROLOGICAL SURGERY 11/24/21 documented as of this encounter
--- OUTSIDE RECORDS SUMMARY | 2025-05-30 05:01 | XMS_ITS | Encounter Summary ---
Author Organization [facility] Address [facility] [place] [address] Care Team Providers Care Salt Refiner Name Role Phone Viv Hamm Primary Care Provider [phone] Alberto Avendano MD Unavailable [phone] Kylee Villanueva MD Primary Care Provider [phone] Encounter Details Date Type Department Care Team (Latest Contact Info) Description 03/02/2021 MyChart Message Enc [facility] Medical Group Multispecialty Care - [facility] 3 [facility] [address] [place] [address] Reynaldo Bunch MD [address] [place] [address] [phone] RE: Test Results Social History Tobacco Use [...] Sex Assigned at Female 11/14/2024 2:54 PM PHOTONICS ENGINEERING TECHNOLOGIST Legal Sex Female 11:06 AM CDT Gender [...] Description 06/07/2025 5:00 PM CDT Hospital Encounter [facility] Interventional [place] [address] [id number] Elizabeth Ryder MD Three [address] [address] 06/07/2025 5:00 PM CDT - 06/07/2025 5:20 PM CDT Surgery [facility] [place]ventional [place] [address] [id number] Elizabeth Ryder MD Three [address] [address] INJECTION TRIGGER POINT-cervivcal/th oracic 06/11/2025 2:40 PM CDT Office Visit [facility] Medical Group Orthopedic & Sports Medicine - [place] [address] [place] [address] Reynaldo Bunch MD [address] [place] [address] 07/13/2025 9:00 AM CDT Hospital Encounter [facility] Interventional [place] [address] [id number] Elizabeth Ryder MD Three [facility] [address] [place] [address] 07/13/2025 9:00 AM CDT - 07/13/2025 9:20 AM CDT Surgery [facility] Interventional [place] [address] [id number] Elizabeth Ryder MD Three [facility] [address] [place] [address] INJECTION EPIDURAL STEROID [id number] 07/13/2025 11:00 AM CDT Office Visit [facility] Multispecialty Care - [facility] 3 [facility] [address] [place] [address] Esau Hoff MD 3 [facility] [address] [place] [address] 09/13/2025 7:40 AM PHOTONICS ENGINEERING TECHNOLOGIST Office Visit [facility] Medical [facility] Family & Internal Medicine - [address] [address] Kylee Villanueva MD [address] [place] [address] [place] [address] Scheduled Procedures Name Priority Associated Diagnoses Date/Ti me INJECTION TRIGGER POINT Myofascial pain 06/07/2025 5:00 PM CDT INJECTION EPIDURAL STEROID CERVICAL Cervical radiculopathy 07/13/2025 9:00 AM CDT documented as of this encounter Visit Diagnoses Not on filedocumented in this encounter Additional Health Concerns Infection Onset Date Last Indicated Resolved Time COVID-19 Rule Out 12/13/2023 12/13/2023 12/13/2023 8:54 AM PHOTONICS ENGINEERING TECHNOLOGIST COVID-19 Rule Out 08/30/2024 08/30/2024 08/30/2024 8:14 AM PHOTONICS ENGINEERING TECHNOLOGIST COVID-19 Rule Out 11/03/2024 11/03/2024 11/03/2024 10:48 AM PHOTONICS ENGINEERING TECHNOLOGIST documented as of this encounter Care Teams Salt Refiner Relationship Specialty [place] [address] [place] [address] PCP - General PHYSICIAN FINGER BUFF SEWER 02/03/21 06/06/23 [place] [address] [address] [place] [address] PCP - General FAMILY PRACTICE 06/07/23 [place] [address] [place] [address] NEUROLOGICAL SURGERY 11/24/21 documented as of this encounter
--- OUTSIDE RECORDS SUMMARY | 2025-05-30 05:01 | XMS_ITS | Encounter Summary ---
Author Organization [facility] Address [address] [place] [address] Care Team Providers Care Manager Of Case Management Name Role Phone Alberto Avendano MD Unavailable [phone] Kylee Villanueva MD Primary Care Provider [phone] Encounter Details Date Type Department Care Team (Late st Contact Info) Description 09/29/2024 [employer] Message Enc [facility] Interventional [place] [address] [id number] Elizabeth Ryder MD Three [facility] [address] [place] [address] Question Social History Tobacco Use [...] Sex Assigned at Female 11/14/2024 2:54 PM PLANT PHYSIOLOGIST Legal Sex Female 11:06 AM CDT Gender Identity Female 05/11/2025 1:56 PM CDT Sexual Orientation Not on file documented as of this encounter Plan of Treatment Upcoming Encounters Date Type Department Care Team (Latest Contact Info) Description 06/07/2025 5:00 PM CDT Hospital Encounter [facility] Interventional [place] [address] [id number] Elizabeth Ryder MD [address] [address] 06/07/2025 5:00 PM CDT - 06/07/2025 5:20 PM CDT Surgery [facility] Interventional [place] [address] [id number] Elizabeth Ryder MD [address] [address] INJECTION TRIGGER POINT-cervivcal/th oracic 06/11/2025 2:40 PM CDT Office Visit [facility] Medical Group Orthopedic & Sports Medicine - [place] [address] [place] [address] Reynaldo Bunch MD [address] [place] [address] 07/13/2025 9:00 AM CDT Hospital Encounter [facility] Interventional [place] [address] [id number] Elizabeth Ryder MD Three [address] [address] 07/13/2025 9:00 AM CDT - 07/13/2025 9:20 AM CDT Surgery [facility] Interventional [place] [address] [id number] Elizabeth Ryder MD Three [facility] [address] [place] [address] INJECTION EPIDURAL STEROID [id number] 07/13/2025 11:00 AM CDT Office Visit [facility] Multispecialty Care - [facility] 3 [facility], [address] [place] [address] Esau Hoff MD 3 [facility] [address] [place] [address] 09/13/2025 7:40 AM PLANT PHYSIOLOGIST Office Visit [facility] Medical [facility] Family & Internal Medicine [address] [address] [place] [address] [place] [address] Scheduled Procedures Name Priority Associated Diagnoses Date/Ti me INJECTION TRIGGER POINT Myofascial pain 06/07/2025 5:00 PM CDT INJECTION EPIDURAL STEROID CERVICAL Cervical radiculopathy 07/13/2025 9:00 AM CDT documented as of this encounter Visit Diagnoses Not on filedocumented in this encounter Additional Health Concerns Infection Onset Date Last Indicated Resolved Time COVID-19 Rule Out 11/03/2024 11/03/2024 11/03/2024 10:48 AM PLANT PHYSIOLOGIST documented as of this encounter Care Teams Manager Of Case Management Relationship Specialty [place] [address] [address] [place] [address] PCP - General FAMILY PRACTICE 06/07/23 Alberto Avendano MD NEUROLOGICAL SURGERY 11/24/21 documented as of this encounter
--- OUTSIDE RECORDS SUMMARY | 2025-05-30 05:01 | XMS_ITS | Encounter Summary ---
Author Organization [facility] Address [address] [place] [address] Care Team Providers Care Maintenance Plumber Name Role Phone Alberto Avendano MD Unavailable [phone] Kylee Villanueva MD Primary Care Provider [phone] Encounter Details Date Type Department Care Team (Late st Contact Info) Description 10/26/2024 [email or web address] Message Enc [facility] Medical Group Orthopedic & Sports Medicine - [place] [address] [place] [phone] Reynaldo Bunch MD [address] [place] [address] Appointment Social History Tobacco Use Types Packs/Day [...] Sex Assigned at Female 11/14/2024 2:54 PM SOCIOLOGY TEACHER Legal Sex Female 11:06 AM CDT Gender Identity Female 05/11/2025 1:56 PM CDT Sexual Orientation Not on file documented as of this encounter Plan of Treatment Upcoming Encounters Date Type Department Care Team (Latest Contact Info) Description 06/07/2025 5:00 PM CDT Hospital Encounter [facility] [place] [address] [id number] Elizabeth Ryder MD Three [address] [address] 06/07/2025 5:00 PM CDT - 06/07/2025 5:20 PM CDT Surgery [facility] [place] [address] [id number] Elizabeth Ryder MD Three [address] [address] INJECTION TRIGGER POINT-cervivcal/th oracic 06/11/2025 2:40 PM CDT Office Visit [facility] Medical Group Orthopedic & Sports Medicine - [place] [address] [place] [address] Reynaldo Bunch MD [address] [place] [address] 07/13/2025 9:00 AM CDT Hospital Encounter [facility] [place] [address] [id number] Elizabeth Ryder MD Three [address] [address] 07/13/2025 9:00 AM CDT - 07/13/2025 9:20 AM CDT Surgery [facility] Interventional [place] [address] [id number] Elizabeth Ryder MD Three [facility] [address] [place] [address] INJECTION EPIDURAL STEROID [id number] 07/13/2025 11:00 AM CDT Office Visit [facility] Multispecialty Care - [facility] 3 [facility] [address] [place] [address] Esau Hoff MD 3 [facility] [address] [place] [address] 09/13/2025 7:40 AM SOCIOLOGY TEACHER Office Visit [facility] Medical [facility] Family & Internal Medicine [address] [address] [place] [address] [facility] [address] [place] [address] Scheduled Procedures Name Priority Associated Diagnoses Date/Ti me INJECTION TRIGGER POINT Myofascial pain 06/07/2025 5:00 PM CDT INJECTION EPIDURAL STEROID CERVICAL Cervical radiculopathy 07/13/2025 9:00 AM CDT documented as of this encounter Visit Diagnoses Not on filedocumented in this encounter Additional Health Concerns Infection Onset Date Last Indicated Resolved Time COVID-19 Rule Out 11/03/2024 11/03/2024 11/03/2024 10:48 AM SOCIOLOGY TEACHER documented as of this encounter Care Teams Maintenance Plumber Relationship Specialty Start Date End Date Kylee Villanueva MD [address] [place], [place] [address]. [address] [place] [address] PCP - General FAMILY PRACTICE 06/07/23 Alberto Avendano MD NEUROLOGICAL SURGERY 11/24/21 documented as of this encounter
--- OUTSIDE RECORDS SUMMARY | 2025-05-30 05:01 | XMS_ITS | Encounter Summary ---
Author Organization [facility] Address [address] [place] [address] Care Team Providers Care Transmission Engineer Name Role Phone Alberto Avendano MD Unavailable [phone] Kylee Villanueva MD Primary Care Provider [phone] Encounter Details Date Type Department Care Team (Late st Contact Info) Description 02/02/2025 ABSMaterialst Message Enc [facility] Medical Group Orthopedic & Sports Medicine - [place] [address] [place] [address] Merrill Hammond MD [address] [place] [address] MRIs Social History Tobacco Use Types Packs/Day [...] Sex Assigned at Female 11/14/2024 2:54 PM ENDOCRINOLOGY PHYSICIAN Legal Sex Female 11:06 AM CDT Gender Identity Female 05/11/2025 1:56 PM CDT Sexual Orientation Not on file documented as of this encounter Plan of Treatment Upcoming Encounters Date Type Department Care Team (Latest Contact Info) Description 06/07/2025 5:00 PM CDT Hospital Encounter [facility] [place] [address] [id number] Elizabeth Ryder MD Three [address] [address] 06/07/2025 5:00 PM CDT - 06/07/2025 5:20 PM CDT Surgery [facility] [place] [address] [id number] Elizabeth Ryder MD Three [address] [address] INJECTION TRIGGER POINT-cervivcal/th oracic 06/11/2025 2:40 PM CDT Office Visit [facility] Medical Group Orthopedic & Sports Medicine - [place] [address] [place] [address] Reynaldo Bunch MD [address] [place] [address] 07/13/2025 9:00 AM CDT Hospital Encounter [facility] Interventional [place] [address] [id number] Elizabeth Ryder MD Three [address] [address] 07/13/2025 9:00 AM CDT - 07/13/2025 9:20 AM CDT Surgery [facility] Interventional Pain [place] [address] [id number] Elizabeth Ryder MD Three [facility] [address] [place] [address] INJECTION EPIDURAL STEROID [id number] 07/13/2025 11:00 AM CDT Office Visit [facility] Multispecialty Care - [facility] 3 [facility] [address] [place] [address] Esau Hoff MD 3 [facility] [address] [place] [address] 09/13/2025 7:40 AM ENDOCRINOLOGY PHYSICIAN Office Visit [facility] Medical [facility] Family & Internal Medicine [address] [address] [place] [address] [facility] [address] [place] [address] Scheduled Procedures Name Priority Associated Diagnoses Date/Ti me INJECTION TRIGGER POINT Myofascial pain 06/07/2025 5:00 PM CDT INJECTION EPIDURAL STEROID CERVICAL Cervical radiculopathy 07/13/2025 9:00 AM CDT documented as of this encounter Visit Diagnoses Not on filedocumented in this encounter Additional Health Concerns Assessment Noted Time PHQ-9 Depression Total Score: 2 12/11/19 25 1:50 PM ENDOCRINOLOGY PHYSICIAN documented as of this encounter Care Teams Transmission Engineer Relationship Specialty Start [place] [address] [facility]. [address] [place] [address] PCP - General FAMILY PRACTICE 06/07/23 Alberto Avendano MD NEUROLOGICAL SURGERY 11/24/21 documented as of this encounter
--- OUTSIDE RECORDS SUMMARY | 2025-05-30 05:01 | XMS_ITS | Encounter Summary ---
Author Organization [facility] Address [address] [place] [address] Care Team Providers Care Aboriginal Education Worker Coordinator Name Role Phone Alberto Avendano MD Unavailable [phone] Kylee Villanueva MD Primary Care Provider [phone] Encounter Details Date Type Department Care Team (Late st Contact Info) Description 08/29/2024 Quantifind Message Enc [facility] Family & Internal Medicine [facility] [address] [place] [address] [place], [place] [address] [place] [address] Appt Social History Tobacco Use Types [...] Sex Assigned at Female 11/14/2024 2:54 PM CONSULTANT ELECTRONICS Legal Sex Female 11:06 AM CDT Gender [...] Description 06/07/2025 5:00 PM CDT Hospital Encounter [facility] Interventional [place] [address] [id number] Elizabeth Ryder MD [address] [address] 06/07/2025 5:00 PM CDT - 06/07/2025 5:20 PM CDT Surgery [facility] Interventional [place] [address] [id number] Elizabeth Ryder MD Three [facility] [address] [place] [address] INJECTION TRIGGER POINT-cervivcal/th oracic 06/11/2025 2:40 PM CDT Office Visit [facility] Orthopedic & Sports Medicine - [place] [address] [place] [address] Reynaldo Bunch MD [address] [place] [address] 07/13/2025 9:00 AM CDT Hospital Encounter [facility] Interventional [place] [address] [id number] Elizabeth Ryder MD Three [facility] [address] [place] [address] 07/13/2025 9:00 AM CDT - 07/13/2025 9:20 AM CDT Surgery [facility] [place] [address] [id number] Elizabeth Ryder MD Three [facility] Suite [facility] [place] [address] INJECTION EPIDURAL STEROID [id number] 07/13/2025 11:00 AM CDT Office Visit [facility] Medical Group Multispecialty Care - [address], [address] [place] [address] Esau Hoff MD [address] [place] [address] [place] [address] 09/13/2025 7:40 AM CONSULTANT ELECTRONICS Office Visit [facility] Family & Internal Medicine - [address] [address] Kylee Villanueva MD [address] [place] [address] [place] [address] Scheduled Procedures Name Priority Associated Diagnoses Date/Ti me INJECTION TRIGGER POINT Myofascial pain 06/07/2025 5:00 PM CDT INJECTION EPIDURAL STEROID CERVICAL Cervical radiculopathy 07/13/2025 9:00 AM CDT documented as of this encounter Visit Diagnoses Not on filedocumented in this encounter Additional Health Concerns Infection Onset Date Last Indicated Resolved Time COVID-19 Rule Out 08/30/2024 08/30/2024 08/30/2024 8:14 AM CONSULTANT ELECTRONICS COVID-19 Rule Out 11/03/2024 11/03/2024 11/03/2024 10:48 AM CONSULTANT ELECTRONICS documented as of this encounter Care Teams Aboriginal Education Worker Coordinator Relationship Specialty [place] [address] [facility]. [address] [place] [address] PCP - General FAMILY PRACTICE 06/07/23 Alberto Avendano MD NEUROLOGICAL SURGERY 11/24/21 documented as of this encounter
--- OUTSIDE RECORDS SUMMARY | 2025-05-30 05:01 | XMS_ITS | Encounter Summary ---
Author Organization [facility] Address [facility] [place] [address] Care Team Providers Care Enrollment Processor Name Role Phone Viv Hamm Primary Care Provider [phone] Alberto Avendano MD Unavailable [phone] Kylee Villanueva MD Primary Care Provider [phone] Encounter Details Date Type Department Care Team (Late st Contact Info) Description 07/31/[address] [facility] Family & Internal Medicine [facility] [address] [place] [address] Viv Hamm [place] [address] [place] [address] [place]-3 index test Social History Tobacco Use Types [...] Sex Assigned at Female 11/14/2024 2:54 PM PATIENT CASE COORDINATOR Legal Sex Female 11:06 AM CDT [...] Encounter [facility] Interventional [place] [address] [id number] Elizabeth Ryder MD Three [facility] [address] [place] [address] 06/07/2025 5:00 PM CDT - 06/07/2025 5:20 PM CDT Surgery [facility] [place]ventional [place] [address] [id number] Elizabeth Ryder MD Three [facility] [address] [place] [address] INJECTION TRIGGER POINT-cervivcal/th oracic 06/11/2025 2:40 PM CDT Office Visit [facility] Orthopedic & Sports Medicine - [place] [address] [place] [address] Reynaldo Bunch MD [address] [place] [address] 07/13/2025 9:00 AM CDT Hospital Encounter [facility] Interventional [facility] [place] [address] [id number] Elizabeth Ryder MD Three [facility] [address] [place] [address] 07/13/2025 9:00 AM CDT - 07/13/2025 9:20 AM CDT Surgery [facility] Interventional Pain Management [place] [address] [id number] Elizabeth Ryder MD Three [facility] [address] [place] [address] INJECTION EPIDURAL STEROID [id number] 07/13/2025 11:00 AM CDT Office Visit [facility] Medical [facility] Multispecialty Care - [facility] 3 [facility], [address] [place] [address] Esau Hoff MD 3 [facility] [address] [place] [address] 09/13/2025 7:40 AM PATIENT CASE COORDINATOR Office Visit [facility] Family & Internal Medicine - [address] [address] Kylee Villanueva MD [address] [place] [address] [place] [address] [phone] Scheduled Procedures Name Priority Associated Diagnoses Date/Ti me INJECTION TRIGGER POINT Myofascial pain 06/07/2025 5:00 PM CDT INJECTION EPIDURAL STEROID CERVICAL Cervical radiculopathy 07/13/2025 9:00 AM CDT documented as of this encounter Visit Diagnoses Not on filedocumented in this encounter Additional Health Concerns Infection Onset Date Last Indicated Resolved Time COVID-19 Rule Out 12/13/2023 12/13/2023 12/13/2023 8:54 AM PATIENT CASE COORDINATOR COVID-19 Rule Out 08/30/2024 08/30/2024 08/30/2024 8:14 AM PATIENT CASE COORDINATOR COVID-19 Rule Out 11/03/2024 11/03/2024 11/03/2024 10:48 AM PATIENT CASE COORDINATOR documented as of this encounter Care Teams Enrollment Processor Relationship Specialty [place] [address] [place] [address] PCP - General PHYSICIAN SLUG PRESS OPERATOR 02/03/21 06/06/23 [place] [address] [address] [place] [address] PCP - General FAMILY PRACTICE 06/07/23 [place] [address] [place] [address] NEUROLOGICAL SURGERY 11/24/21 documented as of this encounter
--- OUTSIDE RECORDS SUMMARY | 2025-05-30 05:01 | XMS_ITS | Encounter Summary ---
Author Organization [facility] Address [address] [place] [address] Care Team Providers Care Singing Teacher Name Role Phone Alberto Avendano MD Unavailable [phone] Kylee Villanueva MD Primary Care Provider [phone] Encounter Details Date Type Department Care Team (Late st Contact Info) Description 01/04/2025 Farmetot Message Enc [facility] Orthopedic & Sports Medicine - [place] [address] [place] [address] [phone] Reynaldo Bunch MD [address] [place] [address] Wrist update Social History Tobacco Use Types [...] Sex Assigned at Female 11/14/2024 2:54 PM LARGE ANIMAL VETERINARIAN Legal Sex Female 11:06 AM CDT Gender Identity Female 05/11/2025 1:56 PM CDT Sexual Orientation Not on file documented as of this encounter Plan of Treatment Upcoming Encounters Date Type Department Care Team (Latest Contact Info) Description 06/07/2025 5:00 PM CDT Hospital Encounter [facility] [place] [address] [id number] Elizabeth Ryder MD Three [address] [address] 06/07/2025 5:00 PM CDT - 06/07/2025 5:20 PM CDT Surgery [facility] [place]ventional [place] [address] [id number] Elizabeth Ryder MD Three [address] [address] INJECTION TRIGGER POINT-cervivcal/th oracic 06/11/2025 2:40 PM CDT Office Visit [facility] Orthopedic & Sports Medicine - [place] [address] [place] [address] Reynaldo Bunch MD [address] [place] [address] 07/13/2025 9:00 AM CDT Hospital Encounter [facility] Interventional [place] [address] [id number] Elizabeth Ryder MD Three [address] [address] 07/13/2025 9:00 AM CDT - 07/13/2025 9:20 AM CDT Surgery [facility] Interventional [place] [address] [id number] Elizabeth Ryder MD Three [facility] [address] [place] [address] INJECTION EPIDURAL STEROID [id number] 07/13/2025 11:00 AM CDT Office Visit [facility] Medical [facility] Multispecialty Care - [facility] 3 [facility], [address] [place] [address] Esau Hoff MD 3 [facility] [address] [place] [address] 09/13/2025 7:40 AM LARGE ANIMAL VETERINARIAN Office Visit [facility] Medical [facility] Family & Internal Medicine [address] [address] [place] [address] [facility] [address] [place] [address] Scheduled Procedures Name Priority Associated Diagnoses Date/Ti me INJECTION TRIGGER POINT Myofascial pain 06/07/2025 5:00 PM CDT INJECTION EPIDURAL STEROID CERVICAL Cervical radiculopathy 07/13/2025 9:00 AM CDT documented as of this encounter Visit Diagnoses Not on filedocumented in this encounter Additional Health Concerns Assessment Noted Time PHQ-9 Depression Total Score: 2 12/11/19 25 1:50 PM LARGE ANIMAL VETERINARIAN documented as of this encounter Care Teams Singing Teacher Relationship Specialty [place] [address] [facility] [place] [address] PCP - General FAMILY PRACTICE 06/07/23 Alberto Avendano MD NEUROLOGICAL SURGERY 11/24/21 documented as of this encounter
--- OUTSIDE RECORDS SUMMARY | 2025-05-30 05:01 | XMS_ITS | Encounter Summary ---
Author Organization [facility] Address [address] [place] [address] Care Team Providers Care Debone Processing Supervisor Name Role Phone Alberto Avendano MD Unavailable [phone] Kylee Villanueva MD Primary Care Provider [phone] Encounter Details Date Type Department Care Team (Late st Contact Info) Description 04/30/2025 Inspired Technologiest Message Enc [facility] Orthopedic & Sports Medicine - [place] [address] [place] [address] Reynaldo Bunch MD [address] [place] [address] Question Social History Tobacco Use Types Packs/Day [...] Sex Assigned at Female 11/14/2024 2:54 PM BOOTH OPERATOR Legal Sex Female 11:06 AM CDT Gender Identity Female 05/11/2025 1:56 PM CDT Sexual Orientation Not on file documented as of this encounter Plan of Treatment Upcoming Encounters Date Type Department Care Team (Latest Contact Info) Description 06/07/2025 5:00 PM CDT Hospital Encounter [facility] [place] [address] [id number] Elizabeth Ryder MD Three [address] [address] 06/07/2025 5:00 PM CDT - 06/07/2025 5:20 PM CDT Surgery [facility] [place]ventional [place] [address] [id number] Elizabeth Ryder MD Three [address] [address] INJECTION TRIGGER POINT-cervivcal/th oracic 06/11/2025 2:40 PM CDT [facility] Orthopedic & Sports Medicine - [place] [address] [place] [address] Reynaldo Bunch MD [address] [place] [address] 07/13/2025 9:00 AM CDT Hospital Encounter [facility] Interventional [place] [address] [id number] Elizabeth Ryder MD Three [address] [address] 07/13/2025 9:00 AM CDT - 07/13/2025 9:20 AM CDT Surgery [facility] Interventional Pain Management [place] [address] [id number] Elizabeth Ryder MD Three [facility] [address] [place] [address] INJECTION EPIDURAL STEROID [id number] 07/13/2025 11:00 AM CDT Office Visit [facility] Multispecialty Care - [facility] 3 [facility] [address] [place] [address] Esau Hoff MD 3 [facility] [address] [place] [address] 09/13/2025 7:40 AM BOOTH OPERATOR [facility] Family & Internal Medicine - [address] [address] Kylee Villanueva MD [address] [place] [address] [place] [address] [id number] Scheduled Procedures Name Priority Associated Diagnoses Date/Ti [...] Total Score: 2 12/11/19 25 1:50 PM BOOTH OPERATOR documented as of this encounter Care Teams Debone Processing Supervisor Relationship Specialty [place] [address] [facility] [address] [place] [address] PCP - General FAMILY PRACTICE 06/07/23 Alberto Avendano MD NEUROLOGICAL SURGERY 11/24/21 documented as of this encounter
--- OUTSIDE RECORDS SUMMARY | 2025-05-30 05:01 | XMS_ITS | Encounter Summary ---
Author Organization [facility] Address [address] [place] [address] Care Team Providers Care Silk Examiner Name Role Phone Alberto Avendano MD Unavailable [phone] Kylee Villanueva MD Primary Care Provider Encounter Details Date Type Department Care Team (Late st Contact Info) Description 05/15/2025 Chayamunit Message Enc [facility] Medical Group Orthopedic & Sports Medicine - [place] [address] [place] [address] [phone] Reynaldo Bunch MD [address] [place] [address] Injections Social History Tobacco Use Types Packs/Day [...] Assigned at Female 11/14/2024 2:54 PM COMMERCIAL INSTALLER Legal Sex Female 11:06 AM CDT Gender Identity Female 05/11/2025 1:56 PM CDT Sexual Orientation Not on file documented as of this encounter Plan of Treatment Upcoming Encounters Date Type Department Care Team (Latest Contact Info) Description 06/07/2025 5:00 PM CDT Hospital Encounter [facility] [place] [address] [id number] Elizabeth Ryder MD Three [address] [address] 06/07/2025 5:00 PM CDT - 06/07/2025 5:20 PM CDT Surgery [facility] [place] [address] [id number] Elizabeth Ryder MD Three [address] [address] INJECTION TRIGGER POINT-cervivcal/th oracic 06/11/2025 2:40 PM CDT Office Visit [facility] Medical Group Orthopedic & Sports Medicine - [place] [address] [place] [address] Reynaldo Bunch MD [address] [place] [address] 07/13/2025 9:00 AM CDT Hospital Encounter [facility] [place] [address] [id number] Elizabeth Ryder MD Three [address] [address] 07/13/2025 9:00 AM CDT - 07/13/2025 9:20 AM CDT Surgery [facility] Interventional [place] [address] [id number] Elizabeth Ryder MD Three [facility] [address] [place] [address] INJECTION EPIDURAL STEROID [id number] 07/13/2025 11:00 AM CDT Office Visit [facility] Multispecialty Care - [facility] 3 [facility] [address] [place] [address] Esau Hoff MD 3 [facility] [address] [place] [address] 09/13/2025 7:40 AM COMMERCIAL INSTALLER Office Visit [facility] Medical [facility] Family & Internal Medicine - [address] [address] Kylee Villanueva MD [address] [place] [address] [place] [id number] Scheduled Procedures Name Priority Associated Diagnoses Date/Ti [...] Total Score: 2 12/11/19 25 1:50 PM COMMERCIAL INSTALLER documented as of this encounter Care Teams Silk Examiner Relationship Specialty [place] [address] [facility] [address] [place] [address] PCP - General FAMILY PRACTICE 06/07/23 Alberto Avendano MD NEUROLOGICAL SURGERY 11/24/21 documented as of this encounter
--- OUTSIDE RECORDS SUMMARY | 2025-05-30 05:01 | XMS_ITS | Encounter Summary ---
Author Organization [facility] Address [address] [place] [address] Care Team Providers Care Maintenance Advisor Name Role Phone Alberto Avendano MD Unavailable [phone] Kylee Villanueva MD Primary Care Provider [phone] Encounter Details Date Type Department Care Team (Late st Contact Info) Description 03/26/2025 Ciel Medicalt Message Enc [facility] Group Orthopedic & Sports Medicine - [place] [address] [place] [address] Reynaldo Bunch MD [address] [place] [address] MRI Social History Tobacco Use Types Packs/Day [...] Assigned at Female 11/14/2024 2:54 PM SALES REPRESENTATIVE PRINTING PAPER Legal Sex Female 11:06 AM CDT Gender Identity Female 05/11/2025 1:56 PM CDT Sexual Orientation Not on file documented as of this encounter Functional Status * Calculated C-SSRS Risk Score (Lifetime/Recent) Answer Date of Assessment Author Status No Risk Indicated 03/27/2025 11:08 AM CDT India Vázquez RN Active * Cherry Suicide Severity Rating Scale (Screener/Recent Self-Report) Question [...] [facility] [place] [address] [id number] Elizabeth Ryder MD [address] [address] 06/07/2025 5:00 PM CDT - 06/07/2025 5:20 PM CDT Surgery [facility] Interventional [place] [address] [id number] Elizabeth Ryder MD [address] [address] INJECTION TRIGGER POINT-cervivcal/th oracic 06/11/2025 2:40 PM CDT Office Visit [facility] Orthopedic & Sports Medicine - [place] [address] [place] [address] Reynaldo Bunch MD [address] [place] [address] 07/13/2025 9:00 AM CDT Hospital Encounter [facility] Interventional [place] [address] [id number] Elizabeth Ryder MD Three [facility] [address] [place] [address] 07/13/2025 9:00 AM CDT - 07/13/2025 9:20 AM CDT Surgery [facility] Interventional Pain [place] [address] [id number] Elizabeth Ryder MD Three [facility] [address] [place] [address] INJECTION EPIDURAL STEROID [id number] 07/13/2025 11:00 AM CDT Office Visit [facility] Multispecialty Care - [facility] 3 [facility] [address] [place] [address] Esau Hoff MD 3 [facility] [address] [place] [address] 09/13/2025 7:40 AM SALES REPRESENTATIVE PRINTING PAPER Office Visit [facility] Medical Group Family & Internal Medicine - [address] [address] Kylee Villanueva MD [address] [place] [address]. [address] [place] [address] Scheduled Procedures Name Priority Associated Diagnoses Date/Ti me INJECTION TRIGGER POINT Myofascial pain 06/07/2025 5:00 PM CDT INJECTION EPIDURAL STEROID CERVICAL Cervical radiculopathy 07/13/2025 9:00 AM CDT documented as of this encounter Visit Diagnoses Not on filedocumented in this encounter Additional Health Concerns Assessment Noted Time PHQ-9 Depression Total Score: 2 12/11/19 25 1:50 PM SALES REPRESENTATIVE PRINTING PAPER documented as of this encounter Care Teams Maintenance Advisor Relationship Specialty [place] [address] [address] [place] [address] PCP - General FAMILY PRACTICE 06/07/23 Alberto Avendano MD NEUROLOGICAL SURGERY 11/24/21 documented as of this encounter
--- OUTSIDE RECORDS SUMMARY | 2025-05-30 05:01 | XMS_ITS | Encounter Summary ---
Author Organization [facility] Address [address] [place] [address] Care Team Providers Care Mine Patrol Name Role Phone Alberto Avendano MD Unavailable [phone] Kylee Villanueva MD Primary Care Provider [phone] Encounter Details Date Type Department Care Team (Late st Contact Info) Description 01/22/2025 Mandiantt Message Enc [facility] Orthopedic & Sports Medicine - [place] [address] [place] [address] Merrill Hammond MD [address] [place] [address] Earlier appt Social History Tobacco Use Types [...] Sex Assigned at Female 11/14/2024 2:54 PM CAPABILITY LEAD Legal Sex Female 11:06 AM CDT Gender Identity Female 05/11/2025 1:56 PM CDT Sexual Orientation Not on file documented as of this encounter Plan of Treatment Upcoming Encounters Date Type Department Care Team (Latest Contact Info) Description 06/07/2025 5:00 PM CDT Hospital Encounter [facility] [place] [address] [id number] Elizabeth Ryder MD Three [address] [address] 06/07/2025 5:00 PM CDT - 06/07/2025 5:20 PM CDT Surgery [facility] [place]ventional [place] [address] [id number] Elizabeth Ryder MD Three [address] [address] INJECTION TRIGGER POINT-cervivcal/th oracic 06/11/2025 2:40 PM CDT Office Visit [facility] Group Orthopedic & Sports Medicine - [place] [address] [place] [address] Reynaldo Bunch MD [address] [place] [address] 07/13/2025 9:00 AM CDT Hospital Encounter [facility] Interventional [place] [address] [id number] Elizabeth Ryder MD Three [address] [address] 07/13/2025 9:00 AM CDT - 07/13/2025 9:20 AM CDT Surgery [facility] Interventional Pain [place] [address] [id number] Elizabeth Ryder MD Three [facility] [address] [place] [address] INJECTION EPIDURAL STEROID [id number] 07/13/2025 11:00 AM CDT Office Visit [facility] Medical [facility] Multispecialty Care - [facility] 3 [facility], [address] [place] [address] Esau Hoff MD 3 [facility] [address] [place] [address] 09/13/2025 7:40 AM CAPABILITY LEAD Office Visit [facility] Family & Internal Medicine [address] [address] [place] [address] [facility] [address] [place] [address] Scheduled Procedures Name Priority Associated Diagnoses Date/Ti me INJECTION TRIGGER POINT Myofascial pain 06/07/2025 5:00 PM CDT INJECTION EPIDURAL STEROID CERVICAL Cervical radiculopathy 07/13/2025 9:00 AM CDT documented as of this encounter Visit Diagnoses Not on filedocumented in this encounter Additional Health Concerns Assessment Noted Time PHQ-9 Depression Total Score: 2 12/11/19 25 1:50 PM CAPABILITY LEAD documented as of this encounter Care Teams Mine Patrol Relationship Specialty [place] [address] [facility] [place] [address] PCP - General FAMILY PRACTICE 06/07/23 Alberto Avendano MD NEUROLOGICAL SURGERY 11/24/21 documented as of this encounter
--- OUTSIDE RECORDS SUMMARY | 2025-05-30 05:01 | XMS_ITS | Encounter Summary ---
Author Organization [facility] Address Formerly [facility] [place] [address] Care Team Providers Care Radiological Equipment Specialist Name Role Phone Viv Hamm Primary Care Provider [phone] Alberto Avendano MD Unavailable [phone] Kylee Villanueva MD Primary Care Provider [phone] Encounter Details Date Type Department Care Team (Late st Contact Info) Description 04/08/2021 Groovehart Message Enc [facility] General Surgery [address], [address] [place] [address] Tracy Godoy MD [address] [address] Other Social History Tobacco Use [...] Sex Assigned at Female 11/14/2024 2:54 PM CUSTOMER TRAINING SPECIALIST Legal Sex Female 11:06 AM CDT [...] Description 06/07/2025 5:00 PM CDT Hospital Encounter [facility] Interventional [place] [address] [id number] Elizabeth Ryder MD Three [address] [address] 06/07/2025 5:00 PM CDT - 06/07/2025 5:20 PM CDT Surgery [facility] [place] [address] [id number] Elizabeth Ryder MD Three [address] [address] INJECTION TRIGGER POINT-cervivcal/th oracic 06/11/2025 2:40 PM CDT Office Visit [facility] Medical Group Orthopedic & Sports Medicine - [place] [address] [place] [address] Reynaldo Bunch MD [address] [place] [address] 07/13/2025 9:00 AM CDT Hospital Encounter [facility] [place] [address] [id number] Elizabeth Ryder MD Three [facility] [address] [place] [address] 07/13/2025 9:00 AM CDT - 07/13/2025 9:20 AM CDT Surgery [facility] Interventional Pain [place] [address] [id number] Elizabeth Ryder MD Three [facility] [address] [place] [address] INJECTION EPIDURAL STEROID [id number] 07/13/2025 11:00 AM CDT Office Visit [facility] Multispecialty Care - [facility] 3 [facility] [address] [place] [address] Esau Hoff MD 3 [facility] [address] [place] [address] 09/13/2025 7:40 AM CUSTOMER TRAINING SPECIALIST Office Visit [facility] Medical [facility] Family & Internal Medicine - [address] [address] Kylee Villanueva MD [address] [place] [address] [place] [address] [phone] Scheduled Procedures Name Priority Associated Diagnoses Date/Ti me INJECTION TRIGGER POINT Myofascial pain 06/07/2025 5:00 PM CDT INJECTION EPIDURAL STEROID CERVICAL Cervical radiculopathy 07/13/2025 9:00 AM CDT documented as of this encounter Visit Diagnoses Not on filedocumented in this encounter Additional Health Concerns Infection Onset Date Last Indicated Resolved Time COVID-19 Rule Out 12/13/2023 12/13/2023 12/13/2023 8:54 AM CUSTOMER TRAINING SPECIALIST COVID-19 Rule Out 08/30/2024 08/30/2024 08/30/2024 8:14 AM CUSTOMER TRAINING SPECIALIST COVID-19 Rule Out 11/03/2024 11/03/2024 11/03/2024 10:48 AM CUSTOMER TRAINING SPECIALIST documented as of this encounter Care Teams Radiological Equipment Specialist Relationship Specialty [place] [address] [place] [address] PCP - General PHYSICIAN ASE MASTER MECHANIC 02/03/21 06/06/23 [place] [address] [place] [address] PCP - General FAMILY PRACTICE 06/07/23 [place] [address] [place] [address] NEUROLOGICAL SURGERY 11/24/21 documented as of this encounter
--- OUTSIDE RECORDS SUMMARY | 2025-05-30 05:01 | XMS_ITS | Encounter Summary ---
Author Organization [facility] Address [address] [place] [address] Care Team Providers Care Tube Turner Name Role Phone Alberto Avendano MD Unavailable [phone] Kylee Villanueva MD Primary Care Provider [phone] Encounter Details Date Type Department Care Team [...] Sex Assigned at Female 11/14/2024 2:54 PM YIELD ENGINEER Legal Sex Female 11:06 AM CDT Gender Identity Female 05/11/2025 1:56 PM CDT Sexual Orientation Not on file documented as of this encounter Plan of Treatment Upcoming Encounters Date Type Department Care Team (Latest Contact Info) Description 06/07/2025 5:00 PM CDT Hospital Encounter [facility] Interventional Pain [place] [address] [id number] Elizabeth Ryder MD Three [address] [address] 06/07/2025 5:00 PM CDT - 06/07/2025 5:20 PM CDT Surgery [facility] [place]ventional [place] [address] [id number] Elizabeth Ryder MD Three [address] [address] INJECTION TRIGGER POINT-cervivcal/th oracic 06/11/2025 2:40 PM CDT Office Visit [facility] Medical Group Orthopedic & Sports Medicine - [place] [address] [place] [address] Reynaldo Bunch MD [address]70 [place] [address] 07/13/2025 9:00 AM CDT Hospital Encounter [facility] [place]ventional [place] [address] [id number] Elizabeth Ryder MD Three [address] [address] 07/13/2025 9:00 AM CDT - 07/13/2025 9:20 AM CDT Surgery [facility] [place]ventional [place] [address] [id number] Elizabeth Ryder MD Three [facility] [address] [place] [address] INJECTION EPIDURAL STEROID [id number] 07/13/2025 11:00 AM CDT Office Visit [facility] Multispecialty Care - [facility] 3 [facility] [address] [place] [address] Esau Hoff MD 3 [facility] [address] [place] [address] 09/13/2025 7:40 AM YIELD ENGINEER Office Visit [facility] Family & Internal Medicine - [address] [address] [place] [address] [facility]. [address] [place] [address] Scheduled Procedures Name Priority Associated Diagnoses Date/Ti [...] Total Score: 2 12/11/19 25 1:50 PM YIELD ENGINEER documented as of this encounter Care Teams Tube Turner Relationship Specialty [place] [address] [facility] [address] [place] [address] [phone] PCP - General FAMILY PRACTICE 06/07/23 Alberto Avendano MD NEUROLOGICAL SURGERY 11/24/21 documented as of this encounter
--- OUTSIDE RECORDS SUMMARY | 2025-05-30 05:01 | XMS_ITS | Encounter Summary ---
Author Organization [facility] Address [facility] [place] [address] Care Team Providers Care Grapple Skidder Operator Name Role Phone Viv Hamm Primary Care Provider [phone] Alberto Avendano MD Unavailable [phone] Kylee Villanueva MD Primary Care Provider [phone] Encounter Details Date Type Department Care Team (Late st Contact Info) Description 06/04/[address] [facility] Medical Group Multis[facility]ialty Care - [facility] 3 [facility] [address], [address] [place] [address] Shane Noble MD 1 [place] [address] Gabapentin Social History Tobacco Use Types Packs/Day [...] Sex Assigned at Female 11/14/2024 2:54 PM PRESIDENT AND CMO Legal Sex Female 11:06 AM CDT Gender [...] AM CDT Denilson Roque RN Active * Barry Suicide Severity Rating Scale (Screener/Recent Self-Report) Question [...] [facility] [place] [address] [id number] Elizabeth Ryder MD Three [address] [address] 06/07/2025 5:00 PM CDT - 06/07/2025 5:20 PM CDT Surgery [facility] Interventional [place] [address] [id number] Elizabeth Ryder MD Three [address] [address] INJECTION TRIGGER POINT-cervivcal/th oracic 06/11/2025 2:40 PM CDT Office Visit [facility] Medical Group Orthopedic & Sports Medicine - [place] [address] [place] [address] Reynaldo Bunch MD [address] [place] [address] 07/13/2025 9:00 AM CDT Hospital Encounter [facility] Interventional [place] [address] [id number] Elizabeth Ryder MD Three [address] [address] 07/13/2025 9:00 AM CDT - 07/13/2025 9:20 AM CDT Surgery [facility] Interventional [place] [address] [id number] Elizabeth Ryder MD Three [facility] [address] [place] [address] INJECTION EPIDURAL STEROID [id number] 07/13/2025 11:00 AM CDT Office Visit [facility] Mult[facility]ialty Care - [facility] 3 [facility] [address] [place] [address] Esau Hoff MD 3 [facility] [address] [place] [address] 09/13/2025 7:40 AM PRESIDENT AND CMO Office Visit [facility] Medical [facility] Family & Internal Medicine - [address] [address] Kylee Villanueva MD [address] [place] [address] [place] [address] [phone] Scheduled Procedures Name Priority Associated Diagnoses Date/Ti me INJECTION TRIGGER POINT Myofascial pain 06/07/2025 5:00 PM CDT INJECTION EPIDURAL STEROID CERVICAL Cervical radiculopathy 07/13/2025 9:00 AM CDT documented as of this encounter Visit Diagnoses Not on filedocumented in this encounter Additional Health Concerns Infection Onset Date Last Indicated Resolved Time COVID-19 Rule Out 12/13/2023 12/13/2023 12/13/2023 8:54 AM PRESIDENT AND CMO COVID-19 Rule Out 08/30/2024 08/30/2024 08/30/2024 8:14 AM PRESIDENT AND CMO COVID-19 Rule Out 11/03/2024 11/03/2024 11/03/2024 10:48 AM PRESIDENT AND CMO documented as of this encounter Care Teams Grapple Skidder Operator Relationship Specialty [place] [address] [place] [address] PCP - General PHYSICIAN GRINDING OPERATOR 02/03/21 06/06/23 [place] [address] [address] [place] [address] PCP - General FAMILY PRACTICE 06/07/23 [place] [address] [place] [address] NEUROLOGICAL SURGERY 11/24/21 documented as of this encounter
--- OUTSIDE RECORDS SUMMARY | 2025-05-30 05:01 | XMS_ITS | Encounter Summary ---
Author Organization [facility] Address [facility] [place] [address] Care Team Providers Care Practicing Md Anesthesiologist Name Role Phone Viv Hamm Primary Care Provider [phone] Alberto Avendano MD Unavailable [phone] Kylee Villanueva MD Primary Care Provider [phone] Encounter Details Date Type Department Care Team (Late st Contact Info) Description 09/24/2022 [employer] Pharm[employer] Message Enc [facility] Medical Group Family & Internal Medicine [facility] [address] [place] [address] [place] Hamm [place] [id number] [place] [address] Omeprazole 20mg Refill Social History Tobacco [...] Sex Assigned at Female 11/14/2024 2:54 PM PLATFORM BEATER Legal Sex Female 11:06 AM CDT Gender Identity Female 05/11/2025 1:56 PM CDT Sexual Orientation Not on file COVID-19 Exposure Response Date Recorded In the last 10 days, have yo u been in contact with someone who was confirmed or suspected to have Coronavirus/COVID-19? No / Unsure 09/21/2022 1:58 PM PLATFORM BEATER documented as of this encounter Plan of Treatment Upcoming Encounters Date Type Department Care Team (Latest Contact Info) Description 06/07/2025 5:00 PM CDT Hospital Encounter [facility] Interventional [place] [address] [id number] Elizabeth Ryder MD Three [facility] [address] [place] [address] 06/07/2025 5:00 PM CDT - 06/07/2025 5:20 PM CDT Surgery [facility] [place]ventional [place] [address] [id number] Elizabeth Ryder MD Three [facility] [address] [place] [address] INJECTION TRIGGER POINT-cervivcal/th oracic 06/11/2025 2:40 PM CDT Office Visit [facility] Medical Group Orthopedic & Sports Medicine - [place] [address] [place] [address] Reynaldo Bunch MD [address] [place] [address] 07/13/2025 9:00 AM CDT Hospital Encounter [facility] Interventional [place] [address] [id number] Elizabeth Ryder MD Three [facility] [address] [place] [address] 07/13/2025 9:00 AM CDT - 07/13/2025 9:20 AM CDT Surgery [facility] Interventional Pain [place] [address] [id number] Elizabeth Ryder MD Three [facility] [address] [place] [address] INJECTION EPIDURAL STEROID [id number] 07/13/2025 11:00 AM CDT Office Visit [facility] Medical [facility] Multispecialty Care - [facility] 3 [facility], [address] [place] [address] Esau Hoff MD 3 [facility] [address] [place] [address] 09/13/2025 7:40 AM PLATFORM BEATER Office Visit [facility] Medical Group Family & Internal Medicine - [address] [address] Kylee Villanueva MD [address] [place] [address] [place] [address] [phone] Scheduled Procedures Name Priority Associated Diagnoses Date/Ti me INJECTION TRIGGER POINT Myofascial pain 06/07/2025 5:00 PM CDT INJECTION EPIDURAL STEROID CERVICAL Cervical radiculopathy 07/13/2025 9:00 AM CDT documented as of this encounter Visit Diagnoses Not on filedocumented in this encounter Additional Health Concerns Infection Onset Date Last Indicated Resolved Time COVID-19 Rule Out 12/13/2023 12/13/2023 12/13/2023 8:54 AM PLATFORM BEATER COVID-19 Rule Out 08/30/2024 08/30/2024 08/30/2024 8:14 AM PLATFORM BEATER COVID-19 Rule Out 11/03/2024 11/03/2024 11/03/2024 10:48 AM PLATFORM BEATER documented as of this encounter Care Teams Practicing Md Anesthesiologist Relationship Specialty [place] [address] [place] [address] PCP - General PHYSICIAN CORE JAVA ENGINEER 02/03/21 06/06/23 [place] [address] [address] [place] [address] PCP - General FAMILY PRACTICE 06/07/23 [place] [address] [place] [address] NEUROLOGICAL SURGERY 11/24/21 documented as of this encounter
--- OUTSIDE RECORDS SUMMARY | 2025-05-30 05:01 | XMS_ITS | Encounter Summary ---
Author Organization [facility] Address [address] [place] [address] Care Team Providers Care Forklift Mechanic Name Role Phone Alberto Avendano MD Unavailable [phone] Kylee Villanueva MD Primary Care Provider [phone] Encounter Details Date Type Department Care Team (Late st Contact Info) Description 09/11/2024 ALKALINE WATER Message Enc [facility] Interventional Pain Management Center [place] [id number] Elizabeth Ryder MD Three [facility] [address] [place] [address] Hives Social History Tobacco Use [...] Sex Assigned at Female 11/14/2024 2:54 PM CONTRACT DRIVER Legal Sex Female 11:06 AM CDT Gender Identity Female 05/11/2025 1:56 PM CDT Sexual Orientation Not on file documented as of this encounter Plan of Treatment Upcoming Encounters Date Type Department Care Team (Latest Contact Info) Description 06/07/2025 5:00 PM CDT Hospital Encounter [facility] Interventional [place] [address] [id number] Elizabeth Ryder MD [address] [address] 06/07/2025 5:00 PM CDT - 06/07/2025 5:20 PM CDT Surgery [facility] Interventional [place] [address] [id number] Elizabeth Ryder MD [address] [address] INJECTION TRIGGER POINT-cervivcal/th oracic 06/11/2025 2:40 PM CDT Office Visit [facility] Medical Group Orthopedic & Sports Medicine - [place] [address] [place] [address] Reynaldo Bunch MD [address] [place] [address] 07/13/2025 9:00 AM CDT Hospital Encounter [facility] Interventional [place] [address] [id number] Elizabeth Ryder MD Three [address] [address] 07/13/2025 9:00 AM CDT - 07/13/2025 9:20 AM CDT Surgery [facility] Interventional [place] [address] [id number] Elizabeth Ryder MD Three [facility] [address] [place] [address] INJECTION EPIDURAL STEROID [id number] 07/13/2025 11:00 AM CDT Office Visit [facility] Multispecialty Care - [facility] 3 [facility] [address] [place] [address] Esau Hoff MD 3 [facility] [address] [place] [address] 09/13/2025 7:40 AM CONTRACT DRIVER Office Visit [facility] Medical [facility] Family & Internal Medicine [address] [address] [place] [address] [facility]. [address] [place] [address] Scheduled Procedures Name Priority Associated Diagnoses Date/Ti me INJECTION TRIGGER POINT Myofascial pain 06/07/2025 5:00 PM CDT INJECTION EPIDURAL STEROID CERVICAL Cervical radiculopathy 07/13/2025 9:00 AM CDT documented as of this encounter Visit Diagnoses Not on filedocumented in this encounter Additional Health Concerns Infection Onset Date Last Indicated Resolved Time COVID-19 Rule Out 11/03/2024 11/03/2024 11/03/2024 10:48 AM CONTRACT DRIVER documented as of this encounter Care Teams Forklift Mechanic Relationship Specialty Start [place] [address] [address] [place] [address] PCP - General FAMILY PRACTICE 06/07/23 Alberto Avendano MD NEUROLOGICAL SURGERY 11/24/21 documented as of this encounter
--- OUTSIDE RECORDS SUMMARY | 2025-05-30 05:01 | XMS_ITS | Encounter Summary ---
Author Organization [facility] Address [address] [place] [address] Care Team Providers Care Chancery Clerk Name Role Phone Alberto Avendano MD Unavailable [phone] Kylee Villanueva MD Primary Care Provider [phone] Encounter Details Date Type Department Care Team (Late st Contact Info) Description 12/12/2024 Rooster[employer] Message Enc [facility] Medical Group Orthopedic & Sports Medicine - [place] [address] [place] [address] [phone] Reynaldo Bunch MD [address] [place] [address] Update Social History Tobacco Use Types Packs/Day [...] Sex Assigned at Female 11/14/2024 2:54 PM RACE RELATIONS ADVISER Legal Sex Female 11:06 AM CDT Gender Identity Female 05/11/2025 1:56 PM CDT Sexual Orientation Not on file documented as of this encounter Plan of Treatment Upcoming Encounters Date Type Department Care Team (Latest Contact Info) Description 06/07/2025 5:00 PM CDT Hospital Encounter [facility] [place] [address] [id number] Elizabeth Ryder MD Three [address] [address] 06/07/2025 5:00 PM CDT - 06/07/2025 5:20 PM CDT Surgery [facility] [place] [address] [id number] Elizabeth Ryder MD Three [address] [address] INJECTION TRIGGER POINT-cervivcal/th oracic 06/11/2025 2:40 PM CDT Office Visit [facility] Medical Group Orthopedic & Sports Medicine - [place] [address] [place] [address] Reynaldo Bunch MD [address] [place] [address] 07/13/2025 9:00 AM CDT Hospital Encounter [facility] [place] [address] [id number] Elizabeth Ryder MD Three [address] [address] 07/13/2025 9:00 AM CDT - 07/13/2025 9:20 AM CDT Surgery [facility] Interventional [place] [address] [id number] Elizabeth Ryder MD Three [facility] [address] [place] [address] INJECTION EPIDURAL STEROID [id number] 07/13/2025 11:00 AM CDT Office Visit [facility] Multispecialty Care - [facility] 3 [facility] [address] [place] [address] Esau Hoff MD 3 [facility] [address] [place] [address] 09/13/2025 7:40 AM RACE RELATIONS ADVISER Office Visit [facility] Medical [facility] Family & Internal Medicine [address] [address] [place] [address] [facility] [address] [place] [address] Scheduled Procedures Name Priority Associated Diagnoses Date/Ti me INJECTION TRIGGER POINT Myofascial pain 06/07/2025 5:00 PM CDT INJECTION EPIDURAL STEROID CERVICAL Cervical radiculopathy 07/13/2025 9:00 AM CDT documented as of this encounter Visit Diagnoses Not on filedocumented in this encounter Additional Health Concerns Assessment Noted Time PHQ-9 Depression Total Score: 2 12/11/19 25 1:50 PM RACE RELATIONS ADVISER documented as of this encounter Care Teams Chancery Clerk Relationship Specialty Start [place] [address] [facility]. [address] [place] [address] PCP - General FAMILY PRACTICE 06/07/23 Alberto Avendano MD NEUROLOGICAL SURGERY 11/24/21 documented as of this encounter
--- OUTSIDE RECORDS SUMMARY | 2025-05-30 05:01 | XMS_ITS | Encounter Summary ---
Author Organization [facility] Address [address] [place] [address] Care Team Providers Care Telemetry Registered Nurse Name Role Phone Alberto Avendano MD Unavailable [phone] Kylee Villanueva MD Primary Care Provider [phone] Reason for Referral * Surgical (Routine) - New Request Specialty Diagnoses / Procedures Referred By Contac t Referred To Contact Diagnoses Cervical stenosis of spinal canal Procedures Case request operating room: INJECTION EPIDURAL STEROID [id number] Jacob Middleton CNP [address] [address] Phone: tel: [phone] fax: Referral ID Status Reason Start Date Expiration Date V isits Requested Visits Authorized [id number] New Request 07/19/2024 07/19/2025 1 1 Encounter Details Date Type Department Care Team (Late st Contact Info) Description 07/19/2024 Prep for Procedure [facility] Interventional [place] [address] [id number] Jacob Middleton CNP [address] [phone] (Work) Social History Tobacco Use Types Packs/Day [...] Sex Assigned at Female 11/14/2024 2:54 PM STRUCTURAL METAL WORKER Legal Sex Female 11:06 AM CDT Gender Identity Female 05/11/2025 1:56 PM CDT Sexual Orientation Not on file documented as of this encounter Plan of Treatment Upcoming Encounters Date Type Department Care Team (Latest Contact Info) Description 06/07/2025 5:00 PM CDT Hospital Encounter [facility] Interventional [place] [address] [id number] Elizabeth Ryder MD [address] [address] 06/07/2025 5:00 PM CDT - 06/07/2025 5:20 PM CDT Surgery [facility] Interventional [place] [address] [id number] Elizabeth Ryder MD Three [address] [address] INJECTION TRIGGER POINT-cervivcal/th oracic 06/11/2025 2:40 PM CDT Office Visit [facility] Orthopedic [facility] Medicine - [place] [address] [place] [address] Reynaldo Bunch MD [address] [place] [address] 07/13/2025 9:00 AM CDT Hospital Encounter [facility] Interventional Pain [place] [address] [id number] Elizabeth Ryder MD Three [facility] [address] [place] [address] 07/13/2025 9:00 AM CDT - 07/13/2025 9:20 AM CDT Surgery [facility] Interventional Pain Management [place] [address] [id number] Elizabeth Ryder MD Three [facility] [address] [place] [address] INJECTION EPIDURAL STEROID [id number] 07/13/2025 11:00 AM CDT Office Visit [facility] Multispecialty Care - [facility] [address] [place] [address] Esau Hoff MD 3 [facility] [address] [place] [address] 09/13/2025 7:40 AM STRUCTURAL METAL WORKER Office Visit [facility] Family & Internal Medicine - [address] [address] Kylee Villanueva MD [address] [place] [address] [place] [address] Scheduled Procedures Name Priority Associated Diagnoses Date/Ti [...] Rule Out 08/30/2024 08/30/2024 08/30/2024 8:14 AM STRUCTURAL METAL WORKER COVID-19 Rule Out 11/03/2024 11/03/2024 11/03/2024 10:48 AM STRUCTURAL METAL WORKER documented as of this encounter Care Teams Telemetry Registered Nurse Relationship Specialty Start [place] [address] [facility]. [address] [place] [address] PCP - General FAMILY PRACTICE 06/07/23 Alberto Avendano MD NEUROLOGICAL SURGERY 11/24/21 documented as of this encounter
--- OUTSIDE RECORDS SUMMARY | 2025-05-30 05:02 | XMS_ITS | Encounter Summary ---
Author Organization [facility] Address [address] [place] [address] Care Team Providers Care Garment Tag Stringer Name Role Phone Gary Hamm Primary Care Provider [phone] Alberto Avendano MD Unavailable [phone] Kylee Villanueva MD Primary Care Provider [phone] Reason for Referral * Imaging (Routine) - Closed Specialty Diagnoses / Procedures Referred By Ramonita t Referred To Contact RADIOLOGY Diagnoses Elevated LFTs Bloating Procedures [place] [address] [place] [address] Phone: tel: fax: Referral ID Status Reason Start Date Expiration Date Visits Re quested Visits Authorized [id number] Closed 03/17/2022 04/17/2023 1 1 Encounter Details Date Type Department Care Team (Late st Contact Info) Description 03/17/2022 MyChart Message Enc [facility] Medical Group Family & Internal Medicine [facility] [address] [place] [address] [place] [address] [place] [address] Lab Results Social History Tobacco [...] Sex Assigned at Female 11/14/2024 2:54 PM HOME HEALTH LPN Legal Sex Female 11:06 AM CDT [...] 5:00 PM CDT Hospital Encounter [facility] Interventional [place] [address] [id number] Elizabeth Ryder MD [address] [address] 06/07/2025 5:00 PM CDT - 06/07/2025 5:20 PM CDT Surgery [facility] Interventional [place] [address] [id number] Elizabeth Ryder MD [address] [address] INJECTION TRIGGER POINT-cervivcal/th oracic 06/11/2025 2:40 PM CDT Office Visit [facility] Orthopedic & Sports Medicine - [place] [address] [place] [address] Reynaldo Bunch MD [address] [place] [address] 07/13/2025 9:00 AM CDT Hospital Encounter [facility] Interventional [place] [address] [id number] Elizabeth Ryder MD Three [facility] [address] [place] [address] 07/13/2025 9:00 AM CDT - 07/13/2025 9:20 AM CDT Surgery [facility] Interventional Pain [place] [address] [id number] Elizabeth Ryder MD Three [facility] [address] [place] [address] INJECTION EPIDURAL STEROID [id number] 07/13/2025 11:00 AM CDT Office Visit [facility] Multispecialty Care - [facility] 3 [facility] [address] [place] [address] Esau Hoff MD 3 [facility] [address] [place] [address] 09/13/2025 7:40 AM HOME HEALTH LPN Office Visit [facility] Medical [facility] Family & Internal Medicine - [address] [address] Kylee Villanueva [place] [id number] [place] [address] [address] [place] [address] Scheduled Procedures Name Priority Associated Diagnoses Date/Ti [...] Rule Out 12/13/2023 12/13/2023 12/13/2023 8:54 AM HOME HEALTH LPN COVID-19 Rule Out 08/30/2024 08/30/2024 08/30/2024 8:14 AM HOME HEALTH LPN COVID-19 Rule Out 11/03/2024 11/03/2024 11/03/2024 10:48 AM HOME HEALTH LPN documented as of this encounter Care Teams Garment Tag Stringer Relationship Specialty [place] [address] [place] [address] PCP - General PHYSICIAN HUMAN ANATOMY TEACHER 02/03/21 06/06/23 [place] [address] [address] [place] [address] PCP - General FAMILY PRACTICE 06/07/23 [place] [address] [place] [address] NEUROLOGICAL SURGERY 11/24/21 documented as of this encounter
--- OUTSIDE RECORDS SUMMARY | 2025-05-30 05:02 | XMS_ITS | Encounter Summary ---
Author Organization [facility] Address [address] [place] [address] Care Team Providers Care Account Consultant Name Role Phone Alberto Avendano MD Unavailable [phone] Kylee Villanueva MD Primary Care Provider [phone] Encounter Details Date Type Department Care Team (Late st Contact Info) Description 05/15/2024 [employer] Message Enc [facility] Medical Group Family & Internal Medicine [facility] [id number] [place] [address] [place] [phone] [place] [address] Well women exam Social History Tobacco [...] Assigned at Female 11/14/2024 2:54 PM CUSTOMER SERVICE CLERK Legal Sex Female 11:06 AM CDT Gender Identity Female 05/11/2025 1:56 PM CDT Sexual Orientation Not on file documented as of this encounter Plan of Treatment Upcoming Encounters Date Type Department Care Team (Latest Contact Info) Description 06/07/2025 5:00 PM CDT Hospital Encounter [facility] [place] [address] [id number] Elizabeth Ryder MD [address] [address] 06/07/2025 5:00 PM CDT - 06/07/2025 5:20 PM CDT Surgery [facility] [place]ventional [place] [address] [id number] Elizabeth Ryder MD [address] [address] INJECTION TRIGGER POINT-cervivcal/th oracic 06/11/2025 2:40 PM CDT Office Visit [facility] Medical Group Orthopedic & Sports Medicine - [place] [address] [place] [address] Reynaldo Bunch MD [address] [place] [address] 07/13/2025 9:00 AM CDT Hospital Encounter [facility] Interventional [place] [address] [id number] Elizabeth Ryder MD Three [address] [address] 07/13/2025 9:00 AM CDT - 07/13/2025 9:20 AM CDT Surgery [facility] Interventional Pain Management [place] [address] [id number] Elizabeth Ryder MD Three [facility] [address] [place] [address] INJECTION EPIDURAL STEROID [id number] 07/13/2025 11:00 AM CDT Office Visit [facility] Medical [facility] Multispecialty Care - [facility] 3 [facility] [address] [place] [address] Esau Hoff MD 3 [facility] [address] [place] [address] 09/13/2025 7:40 AM CUSTOMER SERVICE CLERK Office Visit [facility] Medical [facility] Family & Internal Medicine - [address] [address] Kylee Villanueva MD [address] [place] [address] [place] [address] [id number] Scheduled Procedures Name Priority Associated Diagnoses Date/Ti me INJECTION TRIGGER POINT Myofascial pain 06/07/2025 5:00 PM CDT INJECTION EPIDURAL STEROID CERVICAL Cervical radiculopathy 07/13/2025 9:00 AM CDT documented as of this encounter Visit Diagnoses Not on filedocumented in this encounter Additional Health Concerns Infection Onset Date Last Indicated Resolved Time COVID-19 Rule Out 08/30/2024 08/30/2024 08/30/2024 8:14 AM CUSTOMER SERVICE CLERK COVID-19 Rule Out 11/03/2024 11/03/2024 11/03/2024 10:48 AM CUSTOMER SERVICE CLERK documented as of this encounter Care Teams Account Consultant Relationship Specialty [place] [address] [facility] [address] [place] [address] PCP - General FAMILY PRACTICE 06/07/23 Alberto Avendano MD NEUROLOGICAL SURGERY 11/24/21 documented as of this encounter
--- OUTSIDE RECORDS SUMMARY | 2025-05-30 05:02 | XMS_ITS | Encounter Summary ---
Author Organization [facility] Address [facility] [place] [address] Care Team Providers Care Propagation Manager Name Role Phone Viv Hamm Primary Care Provider [phone] Alberto Avendano MD Unavailable [phone] Kylee Villanueva MD Primary Care Provider [phone] Encounter Details Date Type Department Care Team (Late st Contact Info) Description 06/04/2022 MyChart Message Enc [facility] Medical Group Family & Internal Medicine [facility] [address] [place] [address] [place] [id number] [place] [address] [address] Scan Results Social History Tobacco [...] Assigned at Female 11/14/2024 2:54 PM BOOTH SUPERVISOR Legal Sex Female 11:06 AM CDT [...] AM CDT Denilson Roque RN Active * [place] Suicide Severity Rating Scale (Screener/Recent Self-Report) Question [...] Description 06/07/2025 5:00 PM CDT Hospital Encounter [facility] Interventional [place] [address] [id number] Elizabeth Ryder MD Three [facility] Suite [facility] [place] [address] 06/07/2025 5:00 PM CDT - 06/07/2025 5:20 PM CDT Surgery [facility] Interventional Pain Management Center ONE [facility] [place] [address] [id number] Elizabeth Ryder MD Three [facility] [address] [place] [address] INJECTION TRIGGER POINT-cervivcal/th oracic 06/11/2025 2:40 PM CDT Office Visit [facility] Medical [facility] Orthopedic & Sports Medicine - [place] [address] [place] [address] Reynaldo Bunch MD [address] [place] [address] 07/13/2025 9:00 AM CDT Hospital Encounter [facility] Interventional [place] [address] [id number] Elizabeth Ryder MD Three [facility] [address] [place] [address] 07/13/2025 9:00 AM CDT - 07/13/2025 9:20 AM CDT Surgery [facility] Interventional Pain [place] [address] [id number] Elizabeth Ryder MD Three [facility] [address] [place] [address] INJECTION EPIDURAL STEROID [id number] 07/13/2025 11:00 AM CDT Office Visit [facility] Multispecialty Care - [facility] 3 [facility], [address] [place] [address] Esau Hoff MD 3 [facility] [address] [address] 09/13/2025 7:40 AM BOOTH SUPERVISOR Office Visit [facility] Medical Group Family & Internal Medicine [facility] [address] [place] [address] [place] [address] [facility]. [address] [place] [address] Scheduled Procedures Name Priority Associated Diagnoses Date/Ti me INJECTION TRIGGER POINT Myofascial pain 06/07/2025 5:00 PM CDT INJECTION EPIDURAL STEROID CERVICAL Cervical radiculopathy 07/13/2025 9:00 AM CDT documented as of this encounter Visit Diagnoses Not on filedocumented in this encounter Additional Health Concerns Infection Onset Date Last Indicated Resolved Time COVID-19 Rule Out 12/13/2023 12/13/2023 12/13/2023 8:54 AM BOOTH SUPERVISOR COVID-19 Rule Out 08/30/2024 08/30/2024 08/30/2024 8:14 AM BOOTH SUPERVISOR COVID-19 Rule Out 11/03/2024 11/03/2024 11/03/2024 10:48 AM BOOTH SUPERVISOR documented as of this encounter Care Teams Propagation Manager Relationship Specialty [place] [address] [place] [address] PCP - General PHYSICIAN SECURITY EXPERT 02/03/21 06/06/23 [place] [address] [facility]. [address] [place] [address] PCP - General FAMILY PRACTICE 06/07/23 [place] [address] [place] [address] NEUROLOGICAL SURGERY 11/24/21 documented as of this encounter
--- OUTSIDE RECORDS SUMMARY | 2025-05-30 05:02 | XMS_ITS | Encounter Summary ---
Author Organization [facility] Address [address] [place] [address] Care Team Providers Care Route Sales Driver Name Role Phone Alberto Avendano MD Unavailable [phone] Kylee Villanueva MD Primary Care Provider [phone] Encounter Details Date Type Department Care Team (Late st Contact Info) Description 03/13/2024 [employer] Message Enc [facility] Medical Group Family & Internal Medicine [address] [address] Kylee Villanueva MD [address] [place] [address]. [address] [place] [address] Abnormal EKG Social History Tobacco [...] Sex Assigned at Female 11/14/2024 2:54 PM ENVIRONMENTAL SUSTAINABILITY MANAGER Legal Sex Female 11:06 AM CDT Gender Identity Female 05/11/2025 1:56 PM CDT Sexual Orientation Not on file documented as of this encounter Progress Notes * Anabell Vallecillo MA - 03/14/2024 12:12 PM CDT Advise? documented in this encounter Plan of Treatment Upcoming Encounters Date Type Department Care Team (Latest Contact Info) Description 06/07/2025 5:00 PM CDT Hospital Encounter [facility] Interventional [place] [address] [id number] Elizabeth Ryder MD Three [facility] [address] [place] [address] 06/07/2025 5:00 PM CDT - 06/07/2025 5:20 PM CDT Surgery [facility] [place] [address] [id number] Elizabeth Ryder MD Three [facility] [address] [place] [address] INJECTION TRIGGER POINT-cervivcal/th oracic 06/11/2025 2:40 PM CDT Office Visit [facility] Medical Group Orthopedic & Sports Medicine - [place] [address] [place] [address] Reynaldo Bunch MD [address] [place] [address] 07/13/2025 9:00 AM CDT Hospital Encounter [facility] Interventional [place] [address] [id number] Elizabeth Ryder MD Three [facility] [address] [place] [address] 07/13/2025 9:00 AM CDT - 07/13/2025 9:20 AM CDT Surgery [facility] Interventional [place] [address] [id number] Elizabeth Ryder MD Three [facility] [address] [place] [address] INJECTION EPIDURAL STEROID [id number] 07/13/2025 11:00 AM CDT Office Visit [facility] Multispecialty Care - [address] [place] [address] Esau Hoff MD [address] [place] [address] 09/13/2025 7:40 AM ENVIRONMENTAL SUSTAINABILITY MANAGER Office Visit [facility] Medical Group Family & Internal Medicine - [address] [address] Kylee Villanueva MD [address] [place] [address] [place] [address] Scheduled Procedures Name Priority Associated Diagnoses Date/Ti me INJECTION TRIGGER POINT Myofascial pain 06/07/2025 5:00 PM CDT INJECTION EPIDURAL STEROID CERVICAL Cervical radiculopathy 07/13/2025 9:00 AM CDT documented as of this encounter Visit Diagnoses Not on filedocumented in this encounter Additional Health Concerns Infection Onset Date Last Indicated Resolved Time COVID-19 Rule Out 08/30/2024 08/30/2024 08/30/2024 8:14 AM ENVIRONMENTAL SUSTAINABILITY MANAGER COVID-19 Rule Out 11/03/2024 11/03/2024 11/03/2024 10:48 AM ENVIRONMENTAL SUSTAINABILITY MANAGER documented as of this encounter Care Teams Route Sales Driver Relationship Specialty [place] [address] [facility]. [address] [place] [address] PCP - General FAMILY PRACTICE 06/07/23 Alberto Avendano MD NEUROLOGICAL SURGERY 11/24/21 documented as of this encounter
--- OUTSIDE RECORDS SUMMARY | 2025-05-30 05:02 | XMS_ITS | Encounter Summary ---
Author Organization [facility] Address [address] [place] [address] Care Team Providers Care Semiconductor Package Symbol Stamper Name Role Phone Alberto Avendano MD Unavailable [phone] Kylee Villanueva MD Primary Care Provider Encounter Details Date Type Department Care Team (Late st Contact Info) Description 03/01/2025 [employer] Message [facility] Interventional [place] [address] [id number] [employer], [facility] Provider Ref Social History Tobacco Use Types [...] Sex Assigned at Female 11/14/2024 2:54 PM SHOES HAND SEWER Legal Sex Female 11:06 AM CDT Gender Identity Female 05/11/2025 1:56 PM CDT Sexual Orientation Not on file documented as of this encounter Plan of Treatment Upcoming Encounters Date Type Department Care Team (Latest Contact Info) Description 06/07/2025 5:00 PM CDT Hospital Encounter [facility] Interventional [place] [address] [id number] Elizabeth Ryder MD Three [address] [address] 06/07/2025 5:00 PM CDT - 06/07/2025 5:20 PM CDT Surgery [facility] [place] [address] [id number] Elizabeth Ryder MD Three [address] [address] INJECTION TRIGGER POINT-cervivcal/th oracic 06/11/2025 2:40 PM CDT Office Visit [facility] Medical Group Orthopedic & Sports Medicine - [place] [address] [place] [address] Reynaldo Bunch MD [address] [place] [address] 07/13/2025 9:00 AM CDT Hospital Encounter [facility] Interventional [place] [address] [id number] Elizabeth Ryder MD Three [address] [address] 07/13/2025 9:00 AM CDT - 07/13/2025 9:20 AM CDT Surgery [facility] Interventional [place] [address] [id number] Elizabeth Ryder MD Three [facility] [address] [place] [address] INJECTION EPIDURAL STEROID [id number] 07/13/2025 11:00 AM CDT Office Visit [facility] Multispecialty Care - [facility] 3 [facility] [address] [place] [address] Esau Hoff MD 3 [facility] [address] [place] [address] 09/13/2025 7:40 AM SHOES HAND SEWER Office Visit [facility] Medical [facility] Family & Internal Medicine [address] [phone] [place] [address] [facility] [address] [place] [address] Scheduled Procedures Name Priority Associated Diagnoses Date/Ti me INJECTION TRIGGER POINT Myofascial pain 06/07/2025 5:00 PM CDT INJECTION EPIDURAL STEROID CERVICAL Cervical radiculopathy 07/13/2025 9:00 AM CDT documented as of this encounter Visit Diagnoses Not on filedocumented in this encounter Additional Health Concerns Assessment Noted Time PHQ-9 Depression Total Score: 2 12/11/19 25 1:50 PM SHOES HAND SEWER documented as of this encounter Care Teams Semiconductor Package Symbol Stamper Relationship Specialty Start Date End Date Kylee Villanueva MD [address] [place] [address]. [address] [place] [address] PCP - General FAMILY PRACTICE 06/07/23 Alberto Avendano MD NEUROLOGICAL SURGERY 11/24/21 documented as of this encounter
--- OUTSIDE RECORDS SUMMARY | 2025-05-30 05:02 | XMS_ITS | Encounter Summary ---
Author Organization [facility] Address [address] [place] [address] Care Team Providers Care Laboratory Mechanical Technician Name Role Phone Alberto Avendano MD Unavailable [phone] Kylee Villanueva MD Primary Care Provider [phone] Encounter Details Date Type Department Care Team (Late st Contact Info) Description 02/20/2025 Elivart Message Enc [facility] - [place] [address] [place] [address] [phone] Reynaldo Bunch MD [address] [place] [address] Restrictions Social History Tobacco Use Types Packs/Day [...] Assigned at Female 11/14/2024 2:54 PM CERTIFIED ALCOHOL DRUG COUNSELOR Legal Sex Female 11:06 AM CDT Gender Identity Female 05/11/2025 1:56 PM CDT Sexual Orientation Not on file documented as of this encounter Plan of Treatment Upcoming Encounters Date Type Department Care Team (Latest Contact Info) Description 06/07/2025 5:00 PM CDT Hospital Encounter [facility] [place] [address] [id number] Elizabeth Ryder MD Three [address] [address] 06/07/2025 5:00 PM CDT - 06/07/2025 5:20 PM CDT Surgery [facility] [place] [address] [id number] Elizabeth Ryder MD Three [address] [address] INJECTION TRIGGER POINT-cervivcal/th oracic 06/11/2025 2:40 PM CDT [facility] [place] [address] [place] [address] Reynaldo Bunch MD [address] [place] [address] 07/13/2025 9:00 AM CDT Hospital Encounter [facility] [place] [address] [id number] Elizabeth Ryder MD Three [address] [address] 07/13/2025 9:00 AM CDT - 07/13/2025 9:20 AM CDT Surgery [facility] Interventional [place] [address] [id number] Elizabeth Ryder MD Three [facility] [address] [place] [address] INJECTION EPIDURAL STEROID [id number] 07/13/2025 11:00 AM CDT Office Visit [facility] Multispecialty Care - [facility] 3 [facility] [address] [place] [address] Esau Hoff MD 3 [facility] [address] [place] [address] 09/13/2025 7:40 AM CERTIFIED ALCOHOL DRUG COUNSELOR [facility] Family & Internal Medicine [address] [address] [place] [address] [facility] [address] [place] [address] Scheduled Procedures Name Priority Associated Diagnoses Date/Ti me INJECTION TRIGGER POINT Myofascial pain 06/07/2025 5:00 PM CDT INJECTION EPIDURAL STEROID CERVICAL Cervical radiculopathy 07/13/2025 9:00 AM CDT documented as of this encounter Visit Diagnoses Not on filedocumented in this encounter Additional Health Concerns Assessment Noted Time PHQ-9 Depression Total Score: 2 12/11/19 25 1:50 PM CERTIFIED ALCOHOL DRUG COUNSELOR documented as of this encounter Care Teams Laboratory Mechanical Technician Relationship Specialty [place] [address] [facility]. [address] [place] [address] PCP - General FAMILY PRACTICE 06/07/23 Alberto Avendano MD NEUROLOGICAL SURGERY 11/24/21 documented as of this encounter
--- OUTSIDE RECORDS SUMMARY | 2025-05-30 05:02 | XMS_ITS | Encounter Summary ---
Author Organization [facility] Address [address] [place] [address] Care Team Providers Care Dehorner Name Role Phone Alberto Avendano MD Unavailable [phone] Kylee Villanueva MD Primary Care Provider [phone] Encounter Details Date Type Department Care Team (Late st Contact Info) Description 03/01/2025 Ocera Therapeuticst Message Enc [facility] Interventional Pain Management Center [place] [id number] Elizabeth Ryder MD Three [facility] [address] [place] [address] Referral Social History Tobacco Use [...] Sex Assigned at Female 11/14/2024 2:54 PM BARREL FILLER HEAD Legal Sex Female 11:06 AM CDT Gender Identity Female 05/11/2025 1:56 PM CDT Sexual Orientation Not on file documented as of this encounter Plan of Treatment Upcoming Encounters Date Type Department Care Team (Latest Contact Info) Description 06/07/2025 5:00 PM CDT Hospital Encounter [facility] [place] [address] [id number] Elizabeth Ryder MD [address] [address] 06/07/2025 5:00 PM CDT - 06/07/2025 5:20 PM CDT Surgery [facility] [place] [address] [id number] Elizabeth Ryder MD [address] [address] INJECTION TRIGGER POINT-cervivcal/th oracic 06/11/2025 2:40 PM CDT Office Visit [facility] Medical Group Orthopedic & Sports Medicine - [place] [address] [place] [address] Reynaldo Bunch MD [address] [place] [address] 07/13/2025 9:00 AM CDT Hospital Encounter [facility] [place] [address] [id number] Elizabeth Ryder MD Three [address] [address] 07/13/2025 9:00 AM CDT - 07/13/2025 9:20 AM CDT Surgery [facility] Interventional [place] [address] [id number] Elizabeth Ryder MD Three [facility] [address] [place] [address] INJECTION EPIDURAL STEROID [id number] 07/13/2025 11:00 AM CDT Office Visit [facility] Multispecialty Care - [facility] 3 [facility], [address] [place] [address] Esau Hoff MD 3 [facility] [address] [place] [address] 09/13/2025 7:40 AM BARREL FILLER HEAD Office Visit [facility] Medical [facility] Family & Internal Medicine - [address] [phone] [place] [address] [facility]. [address] [place] [address] Scheduled Procedures Name Priority Associated Diagnoses Date/Ti me INJECTION TRIGGER POINT Myofascial pain 06/07/2025 5:00 PM CDT INJECTION EPIDURAL STEROID CERVICAL Cervical radiculopathy 07/13/2025 9:00 AM CDT documented as of this encounter Visit Diagnoses Not on filedocumented in this encounter Additional Health Concerns Assessment Noted Time PHQ-9 Depression Total Score: 2 12/11/19 25 1:50 PM BARREL FILLER HEAD documented as of this encounter Care Teams Dehorner Relationship Specialty [place] [address] [facility]. [address] [place] [address] PCP - General FAMILY PRACTICE 06/07/23 Alberto Avendano MD NEUROLOGICAL SURGERY 11/24/21 documented as of this encounter
--- OUTSIDE RECORDS SUMMARY | 2025-05-30 05:02 | XMS_ITS | Encounter Summary ---
Author Organization [facility] Address Critical access hospital[address] [place] [address] Care Team Providers Care Software Licensing Analyst Name Role Phone Viv Hamm Primary Care Provider [phone] Alberto Avendano MD Unavailable [phone] Kylee Villanueva MD Primary Care Provider [phone] Encounter Details Date Type Department Care Team (Late st Contact Info) Description 03/25/2022 MyChart Message Enc [facility] Medical Group Multispecialty Care - [facility] 3 [facility], [address] [place] [address] Shane Noble MD 1 [place] [address] Gabapentin Social History Tobacco Use Types Packs/Day [...] Assigned at Female 11/14/2024 2:54 PM SENIOR UI UX DEVELOPER Legal Sex Female 11:06 AM CDT [...] 06/07/2025 5:00 PM CDT Hospital Encounter [facility] Interventional [place] [address] [id number] Elizabeth Ryder MD Three [address] [address] 06/07/2025 5:00 PM CDT - 06/07/2025 5:20 PM CDT Surgery [facility] [place] [address] [id number] Elizabeth Ryder MD Three [facility] [address] [place] [address] INJECTION TRIGGER POINT-cervivcal/th oracic 06/11/2025 2:40 PM CDT Office Visit [facility] Medical Group Orthopedic & Sports Medicine - [place] [address] Reynaldo Bunch MD [address] [place] [address] [place] [address] 07/13/2025 9:00 AM CDT Hospital Encounter [facility] Interventional [place] [address] [id number] Elizabeth Ryder MD Three [facility] [address] [place] [address] 07/13/2025 9:00 AM CDT - 07/13/2025 9:20 AM CDT Surgery [facility] [place] [address] [id number] Elizabeth Ryder MD Three [facility] [address] [place] [address] INJECTION EPIDURAL STEROID [id number] 07/13/2025 11:00 AM CDT Office Visit [facility] Medical [facility] Multispecialty Care - [facility] 3 [facility], [address] [place] [address] Esau Hoff MD 3 [facility] [address] [place] [address] 09/13/2025 7:40 AM SENIOR UI UX DEVELOPER Office Visit [facility] Medical Group Family & Internal Medicine - [address] [address] Kylee Villanueva MD [address] [place] [address] [place] [address] Scheduled Procedures Name Priority Associated Diagnoses Date/Ti me INJECTION TRIGGER POINT Myofascial pain 06/07/2025 5:00 PM CDT INJECTION EPIDURAL STEROID CERVICAL Cervical radiculopathy 07/13/2025 9:00 AM CDT documented as of this encounter Visit Diagnoses Not on filedocumented in this encounter Additional Health Concerns Infection Onset Date Last Indicated Resolved Time COVID-19 Rule Out 12/13/2023 12/13/2023 12/13/2023 8:54 AM SENIOR UI UX DEVELOPER COVID-19 Rule Out 08/30/2024 08/30/2024 08/30/2024 8:14 AM SENIOR UI UX DEVELOPER COVID-19 Rule Out 11/03/2024 11/03/2024 11/03/2024 10:48 AM SENIOR UI UX DEVELOPER documented as of this encounter Care Teams Software Licensing Analyst Relationship Specialty [place] [address] [place] [address] PCP - General PHYSICIAN LINSEED OIL PRESS TENDER 02/03/21 06/06/23 [place] [address] [facility] [place] [address] PCP - General FAMILY PRACTICE 06/07/23 [place] [address] [facility] [place] [address] NEUROLOGICAL SURGERY 11/24/21 documented as of this encounter
--- OUTSIDE RECORDS SUMMARY | 2025-05-30 05:02 | XMS_ITS | Encounter Summary ---
Author Organization [facility] Address [facility] [place] [address] Care Team Providers Care Nylon Machine Operator Name Role Phone Viv Hamm Primary Care Provider [phone] Alberto Avendano MD Unavailable [phone] Kylee Villanueva MD Primary Care Provider [phone] Encounter Details Date Type Department Care Team (Latest Contact Info) Description 01/25/2022 MyChart Message Enc [facility] Medical Group Multispecialty Care - [facility] 3 [facility], [address] [place] [address] Shane Noble MD 1 [place] [address] Notes from Neurosurgeons Appts Social History Tobacco [...] Sex Assigned at Female 11/14/2024 2:54 PM SECURITIES CONSULTANT Legal Sex Female 11:06 AM CDT [...] 5:00 PM CDT Hospital Encounter [facility] Interventional Pain [place] [address] [id number] Elizabeth Ryder MD Three [address] [address] 06/07/2025 5:00 PM CDT - 06/07/2025 5:20 PM CDT Surgery [facility] Interventional [place] [address] [id number] Elizabeth Ryder MD Three [address] [address] INJECTION TRIGGER POINT-cervivcal/th oracic 06/11/2025 2:40 PM CDT Office Visit [facility] Medical Group Orthopedic & Sports Medicine - [place] [address] [place] [address] Reynaldo Bunch MD [address] [place] [address] 07/13/2025 9:00 AM CDT Hospital Encounter [facility] Interventional Pain [place] [address] [id number] Elizabeth Ryder MD Three [facility] [address] [place] [address] 07/13/2025 9:00 AM CDT - 07/13/2025 9:20 AM CDT Surgery [facility] Interventional [place] [address] [id number] Elizabeth Ryder MD Three [facility] [address] [place] [address] INJECTION EPIDURAL STEROID [id number] 07/13/2025 11:00 AM CDT Office Visit [facility] Multispecialty Care - [facility] 3 [facility], [address] [place] [address] Esau Hoff MD [address] [address] 09/13/2025 7:40 AM SECURITIES CONSULTANT Office Visit [facility] Medical [facility] Family & Internal Medicine - [address] [address] Kylee Villanueva MD [address] [place] [address] [place] [id number] Scheduled Procedures Name Priority Associated Diagnoses Date/Ti me INJECTION TRIGGER POINT Myofascial pain 06/07/2025 5:00 PM CDT INJECTION EPIDURAL STEROID CERVICAL Cervical radiculopathy 07/13/2025 9:00 AM CDT documented as of this encounter Visit Diagnoses Not on filedocumented in this encounter Additional Health Concerns Infection Onset Date Last Indicated Resolved Time COVID-19 Rule Out 12/13/2023 12/13/2023 12/13/2023 8:54 AM SECURITIES CONSULTANT COVID-19 Rule Out 08/30/2024 08/30/2024 08/30/2024 8:14 AM SECURITIES CONSULTANT COVID-19 Rule Out 11/03/2024 11/03/2024 11/03/2024 10:48 AM SECURITIES CONSULTANT documented as of this encounter Care Teams Nylon Machine Operator Relationship Specialty [place] [address] [place] [address] PCP - General PHYSICIAN STEAMBOAT CAPTAIN 02/03/21 06/06/23 [place] [address] [address] [place] [address] PCP - General FAMILY PRACTICE 06/07/23 [place] [address] [place] [address] NEUROLOGICAL SURGERY 11/24/21 documented as of this encounter
--- OUTSIDE RECORDS SUMMARY | 2025-05-30 05:02 | XMS_ITS | Encounter Summary ---
Author Organization [facility] Address [address] [place] [address] Care Team Providers Care Clerical Adjuster Name Role Phone Alberto Avendano MD Unavailable [phone] Kylee Villanueva MD Primary Care Provider [phone] Encounter Details Date Type Department Care Team (Late st Contact Info) Description 02/19/2025 Thin Profile Technologiest Message Enc [facility] Medical Group Orthopedic & Sports Medicine - [place] [address] [place] [address] Merrill Hammond MD [address] [place] [address] Test results Social History Tobacco Use Types [...] Sex Assigned at Female 11/14/2024 2:54 PM MECHANICAL DEVELOPMENT ENGINEER Legal Sex Female 11:06 AM CDT Gender Identity Female 05/11/2025 1:56 PM CDT Sexual Orientation Not on file documented as of this encounter Plan of Treatment Upcoming Encounters Date Type Department Care Team (Latest Contact Info) Description 06/07/2025 5:00 PM CDT Hospital Encounter [facility] Interventional [place] [address] [id number] Elizabeth Ryder MD Three [address] [address] 06/07/2025 5:00 PM CDT - 06/07/2025 5:20 PM CDT Surgery [facility] Interventional [place] [address] [id number] Elizabeth Ryder MD Three [address] [address] INJECTION TRIGGER POINT-cervivcal/th oracic 06/11/2025 2:40 PM CDT Office Visit [facility] Medical Group Orthopedic & Sports Medicine - [place] [address] [place] [address] Reynaldo Bunch MD [address] [place] [address] 07/13/2025 9:00 AM CDT Hospital Encounter [facility] Interventional [place] [address] [id number] Elizabeth Ryder MD Three [address] [address] 07/13/2025 9:00 AM CDT - 07/13/2025 9:20 AM CDT Surgery [facility] Interventional [place] [address] [id number] Elizabeth Ryder MD Three [facility] [address] [place] [address] INJECTION EPIDURAL STEROID [id number] 07/13/2025 11:00 AM CDT Office Visit [facility] Multispecialty Care - [facility] 3 [facility] [address] [place] [address] Esau Hoff MD 3 [facility] [address] [place] [address] 09/13/2025 7:40 AM MECHANICAL DEVELOPMENT ENGINEER Office Visit [facility] Medical [facility] Family & Internal Medicine [address] [address] [place] [address] [facility] [address] [place] [address] Scheduled Procedures Name Priority Associated Diagnoses Date/Ti me INJECTION TRIGGER POINT Myofascial pain 06/07/2025 5:00 PM CDT INJECTION EPIDURAL STEROID CERVICAL Cervical radiculopathy 07/13/2025 9:00 AM CDT documented as of this encounter Visit Diagnoses Not on filedocumented in this encounter Additional Health Concerns Assessment Noted Time PHQ-9 Depression Total Score: 2 12/11/19 25 1:50 PM MECHANICAL DEVELOPMENT ENGINEER documented as of this encounter Care Teams Clerical Adjuster Relationship Specialty [place] [address] [facility]. [address] [place] [address] PCP - General FAMILY PRACTICE 06/07/23 Alberto Avendano MD NEUROLOGICAL SURGERY 11/24/21 documented as of this encounter
--- OUTSIDE RECORDS SUMMARY | 2025-05-30 05:02 | XMS_ITS | Encounter Summary ---
Author Organization [facility] Address [address] [place] [address] Care Team Providers Care Fisher Trap Name Role Phone Alberto Avendano MD Unavailable Kylee Villanueva MD Primary Care Provider [phone] Encounter Details Date Type Department Care Team (Late st Contact Info) Description 03/01/2025 Scrybet Message Enc [facility] Medical Group Orthopedic & Sports Medicine - [place] [address] [place], [place] [address] Merrill Hammond MD [address] [place] [address] Referral Social History Tobacco Use Types Packs/Day [...] Sex Assigned at Female 11/14/2024 2:54 PM 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 Legal Sex Female 11:06 AM CDT Gender Identity Female 05/11/2025 1:56 PM CDT Sexual Orientation Not on file documented as of this encounter Plan of Treatment Upcoming Encounters Date Type Department Care Team (Latest Contact Info) Description 06/07/2025 5:00 PM CDT Hospital Encounter [facility] Interventional [place] [address] [id number] Elizabeth Ryder MD Three [address] [address] 06/07/2025 5:00 PM CDT - 06/07/2025 5:20 PM CDT Surgery [facility] Interventional [place] [address] [id number] Elizabeth Ryder MD Three [address] [address] INJECTION TRIGGER POINT-cervivcal/th oracic 06/11/2025 2:40 PM CDT Office Visit [facility] Medical Group Orthopedic & Sports Medicine - [place] [address] [place] [address] Reynaldo Bunch MD [address] [place] [address] 07/13/2025 9:00 AM CDT Hospital Encounter [facility] Interventional [place] [address] [id number] Elizabeth Ryder MD Three [address] [address] 07/13/2025 9:00 AM CDT - 07/13/2025 9:20 AM CDT Surgery [facility] Interventional [place] [address] [id number] Elizabeth Ryder MD Three [facility] [address] [place] [address] INJECTION EPIDURAL STEROID [id number] 07/13/2025 11:00 AM CDT Office Visit [facility] Multispecialty Care - [facility] 3 [facility] [address] [place] [address] Esau Hoff MD 3 [facility] [address] [place] [address] 09/13/2025 7:40 AM 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 Office Visit [facility] Medical [facility] Family & Internal Medicine - [address] [address] [place] [address] [facility] [address] [place] [address] Scheduled Procedures Name Priority Associated Diagnoses Date/Ti me INJECTION TRIGGER POINT Myofascial pain 06/07/2025 5:00 PM CDT INJECTION EPIDURAL STEROID CERVICAL Cervical radiculopathy 07/13/2025 9:00 AM CDT documented as of this encounter Visit Diagnoses Not on filedocumented in this encounter Additional Health Concerns Assessment Noted Time PHQ-9 Depression Total Score: 2 12/11/19 25 1:50 PM 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 documented as of this encounter Care Teams Fisher Trap Relationship Specialty Start [place] [address] [address] [place] [address] PCP - General FAMILY PRACTICE 06/07/23 Alberto Avendano MD NEUROLOGICAL SURGERY 11/24/21 documented as of this encounter
--- OUTSIDE RECORDS SUMMARY | 2025-05-30 05:02 | XMS_ITS | Encounter Summary ---
Author Organization [facility] Address [facility] [place] [address] Care Team Providers Care Supervisor [employer] Name Role Phone Viv Hamm Primary Care Provider [phone] Alberto Avendano MD Unavailable [phone] Kylee Villanueva MD Primary Care Provider Encounter Details Date Type Department Care Team (Late st Contact Info) Description 02/04/2022 MyChart Message Enc [facility] Multispecialty Care - [facility] [address] [place] [address] Shane Noble MD [address] [place] [address] SED Rate Social History Tobacco Use Types [...] Sex Assigned at Female 11/14/2024 2:54 PM SEWER TAPPER Legal Sex Female 11:06 AM CDT Gender [...] [facility] [place] [address] [id number] Elizabeth Ryder MD Three [address] [address] 06/07/2025 5:00 PM CDT - 06/07/2025 5:20 PM CDT Surgery [facility] [place] [address] [id number] Elizabeth Ryder MD Three [address] [address] INJECTION TRIGGER POINT-cervivcal/th oracic 06/11/2025 2:40 PM CDT Office Visit [facility] Orthopedic [facility] Sports Medicine - [place] [address] [place] [address] Reynaldo Bunch MD [address] [place] [address] 07/13/2025 9:00 AM CDT Hospital Encounter [facility] [place] [address] [id number] Elizabeth Ryder MD Three [facility] [address] [place] [id number] 07/13/2025 9:00 AM CDT - 07/13/2025 9:20 AM CDT Surgery [facility] [place] [address] [id number] Elizabeth Ryder MD Three [facility] [address] [place] [id number] INJECTION EPIDURAL STEROID [id number] 07/13/2025 11:00 AM CDT Office Visit [facility] Multispecialty Care - [facility] [address] [facility], [address] [place] [phone] Esau Hoff MD 3 [facility] [address] [place] [address] 09/13/2025 7:40 AM SEWER TAPPER Office Visit [facility] Medical [facility] - [address] [address] Kylee Villanueva MD [address] [place] [address] [place] [id number] Scheduled Procedures Name Priority Associated Diagnoses Date/Ti me INJECTION TRIGGER POINT Myofascial pain 06/07/2025 5:00 PM CDT INJECTION EPIDURAL STEROID CERVICAL Cervical radiculopathy 07/13/2025 9:00 AM CDT documented as of this encounter Visit Diagnoses Not on filedocumented in this encounter Additional Health Concerns Infection Onset Date Last Indicated Resolved Time COVID-19 Rule Out 12/13/2023 12/13/202312/13/2023 8:54 AM SEWER TAPPER COVID-19 Rule Out 08/30/2024 08/30/2024 08/30/2024 8:14 AM SEWER TAPPER COVID-19 Rule Out 11/03/2024 11/03/2024 11/03/2024 10:48 AM SEWER TAPPER documented as of this encounter Care Teams Supervisor [employer] Relationship Specialty [place] [address] [place] [address] PCP - General PHYSICIAN [employer] 02/03/21 06/06/23 [place] [address] [place] [address] PCP - General FAMILY PRACTICE 06/07/23 [place] [address] [place] [address] NEUROLOGICAL SURGERY 11/24/21 documented as of this encounter
--- NOTE | 2025-05-30 05:58 | ED_ITS ---
HPI - Extremity Injury (Upper) General Chief Complaint: Extremity Injury, Upper Stated Complaint: pain with arm in cast Time Seen by Provider: 05/30/25 04:35 Source: patient Mode of arrival: ambulatory Limitations: no limitations History of Present Illness HPI narrative: Patient presents with concern for right arm pain from elbow to finger and paresthesias in her wrist and digits 4 and 5. 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 Her orthopedic surgeon is Dr Bunch at [facility] in [place]. Cast was placed 1 week ago and scheduled for follow up appointment with removal 06/11. Has been taking ibuprofen for pain. Related Data Home Medications ?Medication ?Instructions ?Recorded ?Confirmed ?Last Taken ?Type fluticasone propionate 50 1 spray intranasal DAILY 07/10/21 07/10/21 Unknown History mcg/actuation nasal spray,suspension (Flonase Allergy Relief) levocetirizine 5 mg tablet (Xyzal) 5 mg PO DAILY 07/10/21 07/10/21 Unknown History montelukast 10 mg tablet 10 mg PO DAILY 07/10/21 07/10/21 Unknown History (Singulair) Allergies Allergy/AdvReac Type Severity Reaction Status Date / Time Sulfa (Sulfonamide Allergy Intermediate RASH, Verified 10/09/24 15:22 Antibiotics) LIGHT HEADED, JOINT ACHES sulfamethoxazole Allergy Intermediate RASH, Verified 10/09/24 15:22 LIGHT HEADED, JOINT ACHES amoxicillin Allergy Unknown Rash Verified 10/09/24 15:22 Penicillins Allergy Unknown Rash Verified 10/09/24 15:22 sulfamethizole Allergy Unknown Rash Verified 10/09/24 15:22 sulfanilamide Allergy Unknown Rash Verified 10/09/24 15:22 trimethoprim Allergy Unknown Rash Verified 10/09/24 15:22 [facility] Past Medical History Medical History Injury of triangular fibrocartilage complex (TFCC) Numbness and tingling of both feet Numbness and tingling Other spondylosis with radiculopathy, lumbar region Gastric polyp Screen for colon cancer Essential (primary) hypertension Dyspnea on exertion Family History Family History Father Hypertension Carcinoma of colon Social History Social History Smoking status: Never smoker Alcohol intake: current Exam Narrative: GENERAL: Well-appearing, well-nourished, and in no acute distress. HEAD: Normocephalic, atraumatic. EYES: Non injected, non icteric ENT: Nares clear, no rhinorrhea or epistaxis. Gross auditory acuity intact. NECK: Supple. No meningismus. CHEST: Speaking in full sentences. No respiratory distress. HEART: Regular rate and rhythm. Brisk capillary refill. ABDOMEN: Soft, nondistended. No rigidity or guarding. Not peritoneal EXTREMITIES: Right arm in case that bends at elbow however she continues to have ROM at the elbow given how there is a section cut out. Padding is torn/shredded (states it appeared that way since placed, usually wrapped with Dagoberto wrap). Fingers are warm and well perfused. Can feel around forearm proximally, inserting my finger between splint and skin; compartments seem soft. SKIN: Warm, dry, no rash. No discoloration of fingers/exposed skin. NEURO: No focal deficits. Alert and oriented. Answering questions. Following commands. Normal speech without aphasia or dysarthria. PSYCH: Normal mood and affect. Course Vital Signs Vital signs: Vital Signs Temperature 97.4 F L 05/30/25 00:39 Pulse Rate 68 05/30/25 00:39 Respiratory Rate 16 05/30/25 00:39 Blood Pressure 118/59 L 05/30/25 00:39 Pulse Oximetry 100 05/30/25 00:39 Oxygen Delivery Room Air 05/30/25 00:39 Temperature 97.8 F 05/30/25 06:41 Pulse Rate 84 05/30/25 06:41 Respiratory Rate 18 05/30/25 06:41 Blood Pressure 105/56 L 05/30/25 06:41 Pulse Oximetry 99 05/30/25 06:41 Oxygen Delivery Room Air 05/30/25 00:39 MDM - Extremity Injury (Upper) MDM Narrative Medical decision making narrative: Patient presents with right arm pain from elbow to fingers and paresthesias intermittently from elbow to digits 4 and 5. 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 Orthopedic surgeon is Dr Bunch through [facility] [place]. Placed approximately 1 week ago; current follow up scheduled for 06/11. In the emergency department she is afebrile with vital signs notable for a very mildly diastolic blood pressure but within appropriate mean arterial pressure and with a normal blood pressure on repeat assessment. Although can not evaluate entire forearm based on cast, patient has a reassuring exam of area proximally, distally, and the portions of forearm that can be accessed. Distribution of symptoms sounds consistent with ulnar neuropathy. Discussed with Dr Le who notes that the way the cast/splint is described as sounds like it was bivalved and with flexion comes the risk of the unlar neuropathy. Recommends she ice it, use anti-inflammatories, and call her orthopedic surgeon this morning. Otherwise stable for discharge. Differential Diagnosis Differential diagnosis: Likely other (compartment syndrome; cast irritation; neuropathy) Discharge Plan Discharge Clinical Impression: Ulnar neuropathy of right upper extremity Patient Disposition: Home Condition: Stable Instructions: Antibiotic Form, Paresthesia (ED) Additional Instructions: The distribution of your symptoms sound consistent with ulnar neuropathy. Our orthopedic surgeon recommends You can apply ice, take anti-inflammatories, and that you call your orthopedic surgeon Dr Bunch this morning. Patient Language: Hungarian Prescriptions: New ibuprofen 600 mg tablet 600 mg PO TID PRN (Reason: pain) Qty: 20 0RF No Action levocetirizine [Xyzal] 5 mg tablet 5 mg PO DAILY montelukast [Singulair] 10 mg tablet 10 mg PO DAILY fluticasone propionate [Flonase Allergy Relief] 50 mcg/actuation spray ,suspension 1 spray intranasal DAILY Rx Instructions: administer into each nostril cyclobenzaprine 10 mg tablet 10 mg PO TID PRN (Reason: muscle spasm) Qty: 60 0RF omeprazole 20 mg capsule,delayed release(DR/EC) 20 mg PO DAILY Qty: 90 1RF benazepril-hydrochlorothiazide 10-12.5 mg tablet See Rx Instructions .ROUTE .COMPLEX Qty: 90 3RF Dose Instruction: TAKE 1 TABLET DAILY Rx Instructions: TAKE 1 TABLET DAILY Follow-up/Referrals: Rich,MD Kylee [Primary Care Provider] - Stand Alone Forms: Work/School Release IP Time of Disposition: 06:47
[2025-05-30 06:41] VITALS: BP 105/56; PULSE 84; RESP 18; TEMP 36.6; O2SAT 99
[2025-05-30] MEDS: KETOROLAC 30 MG/ML VIAL (*BKC) 15 MG IM (06:52)
== END 2025-05-30 06:57 | disposition home or self-care (01) ==
PROVIDERS: Emergency Provider Student in an Organized Health Care Education/Training Program; PCP Family Medicine
DX: G56.21 Lesion of ulnar nerve, right upper limb (principal); I10 Essential (primary) hypertension
CPT/HCPCS: 96372; 99283; J1885

== ENCOUNTER 2025-08-29 15:58 | Emergency (ER) | payer OTHER, SELFPAY ==
--- OUTSIDE RECORDS SUMMARY | 2024-04-08 15:30 | XMS_ITS ---
Author Organization [facility] [place] ([address]) Address [address] [place] [address] Care Team Providers Care Car Shagger Name Role Phone Kylee Villanueva Primary Care Provider UnavailAraceli Thurston Unavailable [phone] Viv Hamm Unavailable Unavailable [employer], Provider Unavailable Unavailab le Allergies Allergen (clinical drug ingredient) Drug/Non Drug Allergy documented on EMR Reaction Allergy Type Onset Date Status Sulfamethoxazole rash Drug Allergy Active clindamycin Clindamycin Unknown Drug Allergy Act martha Penicillin rash Drug Allergy Active [facility] Encounter Medications Medication SIG (Take, Route, Frequency, Duration) Notes Start Date End Date Status Benazepril-hydroCHLOR Othiazide *Please review and pick correct strength-formula tion from writewithan options. If intended option is not shown, discontinue and re-order from Quick Search* Active Gabapentin *Please review and pick correct strength-formula tion from writewithan options. If intended option is not shown, discontinue and re-order from Quick Search* Active Omeprazole 40 MG 1 cap(s) orally once a day Active tiZANidine HCl 2 MG 2 tab(s) orally every 8 hours; Duration: 30 day(s) Active Pepcid 40 MG 1 tab(s) orally once a day (at bedtime) Active Singulair 10 MG TAKE 1 TABLET ONCE DAILY; Duration: 90 Active Flonase Allergy Relief 50 MCG/ACT 2 spray(s) in each nostril once a day; Duration: 90 days Active NASAL WASHES N/A DIRECTED INTRANASALLY NEEDED; Duration: 30 *Please review for potential replacement for e-prescription and drug interaction check* Active Levocetirizine Dihydrochloride 5 MG 1 tab(s) orally once a day (in the evening); Duration: 90 days Active Albuterol Sulfate HFA 108 (90 Base) MCG/ACT 2-4 puffs orally every 4-6 hours; Duration: 30 day(s) Not-Taking Levocetirizine Dihydrochloride 5 MG 1 tab(s) orally once a day (in the evening); Duration: 90 days Active Encounters Encounter Location Date Provider Diagnosis [facility] [address] [place] [phone] 04/08/2024 Provider Tima Allergic rhinitis due to pollen J30.1 Assessments Encounter Date Diagnosis (ICD Code) Assessment Notes Treatment Notes Treatment Clinical Notes Section Notes 04/08/2024 Allergic rhinitis due to pollen (ICD-10 - J30.1) Plan Of Treatment Medication Medication Name Sig Start Date Stop Date Notes Singulair 10 MG TAKE 1 TABLET ONCE DAILY; Duration: 90 Flonase Allergy Relief 50 MCG/ACT 2 spray(s) in each nostril once a day; Duration: 90 days NASAL WASHES N/A DIRECTED INTRANASALLY NEEDED; Duration: 30 *Please review for potential replacement for e-prescription and drug interaction check* Levocetirizine Dihydrochloride 5 MG 1 tab(s) orally once a day (in the evening); Duration: 90 days Next Appt Details Provider Name:Araceli worley, 09/11/2025 08:45:00 AM[facility] [address] [place] [address], [phone], Progress Notes * Lola PULIDOOB:1970 ( 55 yo F)Acc No.[id number]:04/08/2024 Patient: Andres DIOR Provider: Pinky Ly :1970 A ge:53 Y S ex:Female Date:04/08/2024 Address:[address] [place], [place] [id number] Pcp:Kylee Villanueva Subjective: * Chief Complaints: * 1 . [facility]. * Medical History: * Medications: T aking Omeprazole 40 MG Capsule Delayed Release 1 cap(s) orally once a day , Taking tiZANidine HCl 2 MG Tablet 2 tab(s) orally every 8 hours , Taking Pepcid 40 MG Tablet 1 tab(s) orally once a day (at bedtime) , Taking Gabapentin , Notes to Pharmacist: *Please review and pick correct strength-formulation from DailyDigitalan options. If intended option is not shown, discontinue and re-order from Quick Search*, Taking Benazepril-hydroCHLOROthiazide , Notes to Pharmacist: *Please review and pick correct strength-formulation from DailyDigitalan options. If intended option is not shown, discontinue and re-order from Quick Search*, Taking Levocetirizine Dihydrochloride 5 MG Tablet 1 tab(s) orally once a day (in the evening) , Not-Taking/PRN Albuterol Sulfate HFA 108 (90 Base) MCG/ACT Aerosol Solution 2-4 puffs orally every 4-6 hours * Allergies: S ulfamethoxazole: rash, Penicillin: rash, Clindamycin. Objective: * Vitals: Assessment: * Assessment: 1. A llergic rhinitis due to pollen - J30.1 Plan: * Treatment: * Billing Information: * Visit Code: * Procedure Codes: * Electronic signature of Jaiden MCCRACKEN-Migration on 08/30/2025 at 03:39 PM BILLING ADMINISTRATOR Sign off status: Pending * Provider: Pinky nieto Migration Date: 0 04/08/2024 Generated for Kristen membreno/Mary/Lois on: 1 10/30/2024 03:39 PM BILLING ADMINISTRATOR
--- OUTSIDE RECORDS SUMMARY | 2025-07-11 11:30 | XMS_ITS ---
Author Organization [facility] [place] ([address]) Address [address] [place] [address] Care Team Providers Care Oyster Unloader Name Role Phone Kylee Villanueva Primary Care Provider UnavailAraceli Thurston Unavailable [phone] Viv Hamm Unavailable Unavailable REASON FOR VISIT Urticaria follow-up - continued flares Medications Medication SIG (Take, Route, Frequency, Duration) Notes Start Date End Date Status Pepcid 40 MG 1 tab(s) orally once a day (at bedtime) Active tiZANidine HCl 2 MG 2 tab(s) orally every 8 hours; Duration: 30 day(s) Active Gabapentin *Please review and pick correct strength-formula tion from Linux Voicean options. If intended option is not shown, discontinue and re-order from Quick Search* Active EPINEPHrine 0.3 MG/0.3ML as directed Injection as needed; Duration: 30 days Active Omeprazole 40 MG 1 cap(s) orally once a day Active Flonase Allergy Relief 50 MCG/ACT 2 spray(s) in each nostril once a day; Duration: 90 days Active Montelukast Sodium 10 MG 1 tablet Orally Once a day; Duration: 90 days Active Levocetirizine Dihydrochloride 5 MG 2 tabs orally twice a day; Duration: 90 days Active Famotidine 40 MG 1 tablet Orally Twice a day; Duration: 30 days Active NASAL WASHES N/A as directed intranasally as needed; Duration: 30 Active Albuterol Sulfate HFA 108 (90 Base) MCG/ACT 2-4 puffs orally every 4-6 hours; Duration: 30 day(s) Not-Taking Singulair 10 MG TAKE 1 TABLET ONCE DAILY; Duration: 90 Active Benazepril-hydroCHLOR Othiazide 10-12.5 MG 2 tablets Orally Once a day *Please review and pick correct strength-formula tion from Linux Voicean options. If intended option is not shown, discontinue and re-order from Quick Search* Active Encounters Encounter Location Date Provider Diagnosis [facility] [address] [facility] [address] [place] [address] 07/11/2025 Araceli Bishop Chronic sinusitis, unspecified J32.9 ; Idiopathic urticaria L50.1 ; Allergic rhinitis due to pollen J30.1 ; Other diseases of vocal cords J38.3 ; Allergy to other foods Z91.018 ; Allergic rhinitis due to animal (cat) (dog) hair and dander J30.81 ; Other allergic rhinitis J30.89 and Allergy status to sulfonamides Z88.2 Assessments Encounter Date Diagnosis (ICD Code) Assessment Notes Treatment Notes Treatment Clinical Notes Section Notes 07/11/2025 Chronic sinusitis, unspecified (ICD-10 - J32.9) Immunodeficiency evaluation is normal after receiving Pneumovax and HIB. Continue to treat atopic disease and monitor infection frequency 07/11/2025 Idiopathic urticaria (ICD-10 - L50.1) Unclear cause [...] as risk for malignancy and CV disease. 07/11/2025 Allergic rhinitis due to pollen (ICD-10 - J30.1) Andres clearly suffers from atopic disease based upon history and our skin testing. She discontinued SCIT after receiving therapy for over 1 year because no improvement in rhintiis and congestion. Good control with above medications. 07/11/2025 Other diseases of vocal cords (ICD-10 - J38.3) New diagnosis of VCD and paresis. She is following with [facility] and working with physical therapy and speech therapy. Spirometry and CXR were normal. She is now off all inhalers. 07/11/2025 Allergy to other foods (ICD-10 - Z91.018) appears to have sulfite sensitivity and recommend avoiding problematic food 07/11/2025 Allergic rhinitis due to animal (cat) (dog) hair and dander (ICD-10 - J30.81) 07/11/2025 Other allergic rhinitis (ICD-10 - J30.89) 07/11/2025 Allergy status to sulfonamides (ICD-10 - Z88.2) skin testing is not available for Bactrim. Recommend continued avoidance 07/11/2025 Other Plan Of Treatment Medication Medication Name Sig Start Date Stop Date Notes EPINEPHrine 0.3 MG/0.3ML as directed Inj ection as needed; Duration: 30 days Flonase Allergy Relief 50 MCG/ACT 2 spray(s) in each nostril once a day; Duration: 90 days Montelukast Sodium 10 MG 1 tablet Orally Once a day; Duration: 90 days Levocetirizine Dihydrochlori de 5 MG 2 tabs orally twice a day; Duration: 90 days Famotidine 40 MG 1 tablet Orally Twic e a day; Duration: 30 days NASAL WASHES N/A as directed intranas ally as needed; Duration: 30 Treatment Notes Assessment Notes Chronic sinusitis, unspecified Immunodef iciency evaluation is normal after receiving Pneumovax and HIB. Continue to treat atopic disease and monitor infection frequency Idiopathic urticaria Unclear cause for hives. Considerations for hives [...] out today. She was educated regarding the risks/benefits/alternatives to Xolair. We also reviewed again today 'boxed warning' for anaphylaxis as well as risk for malignancy and CV disease. Allergic rhinitis due to pollen Andres shruthi gee suffers from atopic disease based upon history and our skin testing. She discontinued SCIT after receiving therapy for over 1 year because no improvement in rhintiis and congestion. Good control with above medications. Other diseases of vocal cords New diagno sis of VCD and paresis. She is following with [facility] and working with physical therapy and speech therapy. Spirometry and CXR were normal. She is now off all inhalers. Allergy to other foods appears to have s ulfite sensitivity and recommend avoiding problematic food Allergy status to sulfonamides skin test ing is not available for Bactrim. Recommend continued avoidance Next Appt Details Follow Up: 4 Weeks, Reason: Provider Name:Araceli worley, 09/11/2025 08:45:00 AM, [address] [employer] [facility], [address], [address], Progress Notes * Tanner PULIDONaomieOB:1970 ( 55 yo F)Acc No.[id number]:07/11/2025 Progress Notes Patient: Andres DIOR Provider: Marzena Bishop MD :1970 A ge:55 Y S ex:Female Date:07/11/2025 Address:[address] [place], [place] [id number] Pcp:Kylee Villanueva Subjective: * Chief Complaints: * 1 . Urticaria follow-up - continued flares. * HPI: * Introduction: HPI: Marzena Pulido, a 54 year old with multiple drug allergies, ARC and chronic sinusitis presenting for f/u evaluation of hives. She was last evaluated 09-06-2024. H shelia started on upper extremities, face and torso. She is currently taking Xyzal 10 mg BID, Singulair, and Famotidine 40 mg BID and Benadryl without improvement. Hives present on her arms today. Hives are occurring on a daily basis and last a few hours. She is starting s teroids today f or wrist arthritis. She reports e rythematous, raised areas a few centimeters in size on trunk and extremities. H shelia are pruritic. She brought pictures to the office. ? S he was recently diagnosed with Sjogren's and small fiber neuropathy. She is following with rheumatology and neurology at [facility] and with a supervisor doping and testing for connective tissue disorders. She is continuing to have wheezing but improved. She is following with Dr. Garcia and diagnosed with VCD and vocal cord paresis. She is f ollowing with [facility]. Marzena bourgeois has a long history of rhinitis and no improvement with SCIT in the past. Drinking beer and wine causes nasal congestion and hot flashes. Ice tea also causes congestion and rhinorrhea. Astelin caused epistaxis. S he discontinued SCIT because did not feel improvement in congestion and drainage. Nasal symptoms increase in the spring months.? She has had three cats at home for over10 years. T haleigh, she reports no fevers, chills, night sweats or other constitutional symptoms. . * ROS: A LLERGY: runny nose N o. s cratchy throat N o. i tchy eyes Y es. e ar fullness Y es. s inus congestion Y es. S PECIAL SENSES: cataracts N o. g laucoma N o. l oss of hearing?No. i tching in ears Y es. r inging in ears Y es. l oss of balance N o.?loss of smell N o. d ry eyes N o. e xcessive tearing N o. i tching eyes Y es. l oss of taste N o. c onjunctivitis N o. e ar infections N o.? C ONSTITUTIONAL: weight gain N o. l oss of appetite N o. f ever?No. w eakness N o. w eight loss N o. f atigue N o. n ight sweats?No. E NT: cold N o. c ough N o. e pistaxis N o. h earing loss N o. c hange in voice N o. s ore throat N o. r inging in ears?Yes. s inus pain Y es. R ESPIRATORY: shortness of breath N o. c hest pain N o. c hest congestion N o. c ough N o. O PHTHALMOLOGY: diminished vision N o. e ye irritation N o. d rainage from eyes N o. b lurring of vision N o. s easonal eye sx N o. i tching Y es. s ensitivity to light N o. d ischarge N o. w atering Y es. s welling of the eyelids N o. r edness Y es. E NDOCRINOLOGY: fatigue N o. p olydipsia N o. p olyuria N o. w eight loss N o. s leep disturbance N o. c old intolerance N o. h eat intolerance N o. d iabetes N o. C ARDIOLOGY: chest pain N o. l eg edema N o. d izziness N o. s hortness of breath N o. G ASTROENTEROLOGY: dysphagia N o. a bdominal pain N o. n ausea?No. v omiting N o. c onstipation N o. d iarrhea N o. b lood in stool?No. i ndigestion N o. h emorrhoids Y es. U ROLOGY: difficulty urinating N o. b lood in urine N o. f requent urination N o. u rinary incontinence N o. r ecurrent UTI N o. ? D ERMATOLOGY: rash Y es. m ole Y es. l umps N o. d ry or sensitive skin Y es. h shelia (urticaria) Y es. a cne Y es. s kin cancer?No. N EUROLOGY: headache N o. t ingling numbness N o. s eizures?No. i nsomnia N o. m eri loss N o. d izziness N o. g ait abnormality N o. M USCULOSKELETAL: joint swelling N o. j oint pain N o. l eg cramps N o. j oint stiffness N o. s ciatica N o. o steoporosis N o. f racture N o. c arpal tunnel N o. g out N o. P SYCHOLOGY: high stress level N o. d epression N o. s leep disturbances N o. s uicidal ideation N o. e ating disorder N o. m ental or physical abuse N o. a nxiety N o. M CORRINE REPRODUCTIVE: difficulty with erection N o. d iminished sexual drive?No. p enile discharge N o. i nfertility N o. F EMALE REPRODUCTIVE: heavy periods N o. h ot flashes N o. a bnormal vaginal discharge N o. s exually active N o. i nfertility N o. f requent yeat infections N o. p elvic pain N o. b reast pain N o. n ipple discharge N o. A re you ? N o. A re you planning on a future pregancy? N o. * Medical History: * Medications: T aking NASAL WASHES N/A 1 quart of sterilized tap water or distilled water, 1 tsp NaCl, 1 pinch of baking soda as directed intranasally as needed , Taking Famotidine 40 MG Tablet 1 tablet Orally Twice a day , Taking Omeprazole 40 MG Capsule Delayed Release 1 cap(s) orally once a day , Taking tiZANidine HCl 2 MG Tablet 2 tab(s) orally every 8 hours , Taking Pepcid 40 MG Tablet 1 tab(s) orally once a day (at bedtime) , Taking Gabapentin , Notes to Pharmacist: *Please review and pick correct strength-formulation from Linux Voicean options. If intended option is not shown, discontinue and re-order from Quick Search*, Taking Benazepril- hydroCHLOROthiazide 10-12.5 MG Tablet 2 tablets Orally Once a day , Notes to Pharmacist: *Please review and pick correct strength-formulation from Linux Voicean options. If intended option is not shown, discontinue and re-order from Quick Search*, Taking Singulair 10 MG Tablet TAKE 1 TABLET ONCE DAILY , Taking EPINEPHrine 0.3 MG/0.3ML Solution Auto- injector as directed Injection as needed , Taking Flonase Allergy Relief 50 MCG/ACT Suspension 2 spray(s) in each nostril once a day , Taking Levocetirizine Dihydrochloride 5 MG Tablet 2 tabs orally twice a day , Taking Montelukast Sodium 10 MG Tablet 1 tablet Orally Once a day , Not-Taking/PRN Albuterol Sulfate HFA 108 (90 Base) MCG/ACT Aerosol Solution 2-4 puffs orally every 4-6 hours Objective: * Vitals: * Examination: G eneral examination: General appearance: p leasant, well-developed, well-nourished. HEENT: c onjunctiva are clear bilaterally, no tenderness to palpation of the sinuses, TM's without evidence of acute infection, turbinates 2+ swollen and pale inferiorly bilaterally, clear rhinorrhea is present, no polyps noted, no septal perforation, posterior oropharynx is clear, no exudates, no tongue swelling, and uvula is midline. Oral cavity: n ormal, no lesions. Neck, thyroid : s upple, non-tender, no anterior cervical lymphadenopathy. Breasts : n ot performed. Heart: R RR, S1-S2, no murmurs, no rubs, no gallops. Lungs: c lear to auscultation and percussion in all lung kruse. Neurologic exam: u nremarkable. Peripheral pulses: n ormal (2+) bilaterally. Back: n ormal. Extremities: n ormal ROM, no clubbing, no cyanosis, no edema. Genitalia: n ot performed. D ermatology: e rythematous, round areas on upper extremities. Assessment: * Assessment: 1. I diopathic urticaria - L50.1 (Primary) 2 . C hronic sinusitis, unspecified - J32.9 3 . A llergic rhinitis due to pollen - J30.1 4 .?Other diseases of vocal cords - J38.3 5 . A llergy to other foods - Z91.018 6. A llergic rhinitis due to animal (cat) (dog) hair and dander - J30.81 ? 7 . O ther allergic rhinitis - J30.89 8 . A llergy status to sulfonamides - Z88.2 Plan: * Treatment: 2. C hronic sinusitis, unspecified Notes: Immunodeficiency evaluation is normal after receiving Pneumovax and HIB. Continue to treat atopic disease and monitor infection frequency 3. A llergic rhinitis due to pollen Continue NASAL WASHES 1 quart of sterilized tap water or distilled water, 1 tsp NaCl, 1 pinch of baking soda, N/A, as directed, intranasally, as needed, 30, QS, Refills PRN; C ontinue Flonase Allergy Relief Suspension, 50 MCG/ACT, 2 spray(s), in each nostril, once a day, 90 days, 3, Refills 3.? Notes: Andres clearly suffers from atopic disease based upon history and our skin testing. She discontinued SCIT -2020 after receiving therapy for over 1 year because no improvement in rhintiis and congestion. Good control with above medications. 4. O ther diseases of vocal cords Notes: New diagnosis of VCD and paresis. She is following with [facility] and working with physical therapy and speech therapy. Spirometry and CXR were normal. She is now off all inhalers. 5. A llergy to other foods Notes: appears to have sulfite sensitivity and recommend avoiding problematic food 6. A llergy status to sulfonamides Notes: skin testing is not available for Bactrim. Recommend continued avoidance * Procedure Codes: G 8427 DOC MEDS VERIFIED W/[place], [address] PT-FOCUSED HLTH RISK ASSMT * Preventive Medicine: Counseling: D iet a s tolerated. M edication instruction: W atch for side effects of prescribed medications, Nasal steroid/antihistamine instruction: avoid septum. P atient education material sent to portal? Y es C are goal follow up plan BMI management provided Y es Above Normal BMI Follow-up D ietary management education, guidance, and counseling * Follow Up: 4 Weeks * Billing Information: * Visit Code: 53506 Office Visit, Est Pt., Level 4. Modifiers: 25 * Procedure Codes: G8427 DOC MEDS VERIFIED W/[place]. [address] PT-FOCUSED HLTH RISK ASSMT. * Electronic signature of Rebecca Bishop MD on 08/30/2025 at 03:36 PM FULL SERVICE VENDING DRIVER Sign off status: Pending * Provider: Marzena Bishop MD Date: 0 07/11/2025 Generated for Kristen membreno/Mary/eTairamsmitting on: 1 10/30/2024 03:36 PM FULL SERVICE VENDING DRIVER History and Physical Notes * HPI (History of Present Illness) Category Sub-Category Detail Notes Category Not es *Introduction HPI: Andres Pulido, a [age] year old with multiple drug allergies, ARC and chronic sinusitis presenting for f/u evaluation of hives. She was last evaluated 09-06-2024. Hives started on upper extremities, face and torso. She is currently taking Xyzal 10 mg BID, Singulair, and Famotidine 40 mg BID and Benadryl without improvement. Hives present on her arms today. Hives are occurring on a daily basis and last a few hours. She is starting steroids today for wrist arthritis. She reports erythematous, raised areas a few centimeters in size on trunk and extremities. Hives are pruritic. She brought pictures to the office. She was recently diagnosed with Sjogren's and small fiber neuropathy. She is following with rheumatology and neurology at [facility] and with a supervisor doping and testing for connective tissue disorders. She is continuing to have wheezing but improved. She is following with Dr. Garcia and diagnosed with VCD and vocal cord paresis. She is following with [facility]. Andres has a long history of rhinitis and no improvement with SCIT in the past. Drinking beer and wine causes nasal congestion and hot flashes. Ice tea also causes congestion and rhinorrhea. Astelin caused epistaxis. She discontinued SCIT because did not feel improvement in congestion and drainage. Nasal symptoms increase in the spring months. She has had three cats at home for over 10 years. Today, she reports no fevers, chills, night sweats or other constitutional symptoms. Examination Category Sub-Category Detail Notes Category Not es General examination HEENT: conjunctiva are clear bilaterally, no tenderness to palpation of the sinuses, TM's without evidence of acute infection, turbinates 2+ swollen and pale inferiorly bilaterally, clear rhinorrhea is present, no polyps noted, no septal perforation, posterior oropharynx is clear, no exudates, no tongue swelling, and uvula is midline Neck, thyroid : supple, non-tender, no anterior cervical lymphadenopathy Heart: RRR, S1-S2, no murmu rs, no rubs, no gallops Lungs: clear to auscultatio n and percussion in all lung kruse Abdomen: Extremities: normal ROM, no clubb ing, no cyanosis, no edema General appearance: pleasant, well-devel oped, well-nourished Skin: Neurologic exam: unremarkable Oral cavity: normal, no lesions Breasts : not performed Peripheral pulses: normal (2+) bilatera lly Back: normal Genitalia: not performed Dermatology erythematous, r ound areas on upper extremities
--- OUTSIDE RECORDS SUMMARY | 2025-07-31 11:30 | XMS_ITS ---
Author Organization [facility] [place] ([address]) Address [address] [place] [address] Care Team Providers Care Bottling Attendant Name Role Phone Kylee Villanueva Primary Care Provider Unavailabl e Araceli Bishop Unavailable [phone] Viv Hamm Unavailable Unavailable REASON FOR VISIT ARC follow-up Encounters Encounter Location Date Provider Diagnosis [facility] [address] [place] [address] 07/31/2025 Araceli Bishop Plan Of Treatment Next Appt Details Provider Name:Araceli worley, 09/11/2025 08:45:00 AM, [address] [facility], [address], [place], [address], Progress Notes * Lola PULIDOOB:1970 ( 55 yo F)Acc No.[id number]:07/31/2025 Progress Notes Patient: Andres DIOR Provider: Marzena Bishop MD :1970 A ge:55 Y S ex:Female Date:07/31/2025 [facility] Pcp:Kylee Villanueva Subjective: * Chief Complaints: * 1 . ARC follow-up. * Medical History: Objective: * Vitals: Assessment: Plan: * Treatment: * Billing Information: * Visit Code: * Procedure Codes: * Electronic signature of Rebecca Bishop MD on 08/30/2025 at 03:36 PM FIRST DYER Sign off status: Pending * Provider: Marzena Bishop MD Date: Generated for Kristen membreno/Mary/Lois on: 10/30/2024 03:36 PM FIRST DYER
--- OUTSIDE RECORDS SUMMARY | 2025-08-08 11:30 | XMS_ITS ---
Author Organization [facility] [place] ([address]) Address [address] [place] [address] Care Team Providers Care Automation Controls Engineer Name Role Phone Kylee Villanueva Primary Care Provider Unavailabl e Araceli Bishop Unavailable [phone] Viv Hamm Unavailable Unavailable REASON FOR VISIT ARC follow-up Encounters Encounter Location Date Provider Diagnosis [facility] [address] [place] [address] 08/08/2025 Araceli Bishop Plan Of Treatment Next Appt Details Provider Name:Araceli worley, 09/11/2025 08:45:00 AM, [address] [employer] [facility], [address], [place], [address], Progress Notes * Lola PULIDOOB:1970 ( 55 yo F)Acc No.[id number]:08/08/2025 Progress Notes Patient: Andres DIOR Provider: Marzena Bishop MD :1970 A ge:55 Y S ex:Female Date:08/08/2025 [facility] Pcp:Kylee Villanueva Subjective: * Chief Complaints: * 1 . ARC follow-up. * Medical History: Objective: * Vitals: Assessment: Plan: * Treatment: * Billing Information: * Visit Code: * Procedure Codes: * Electronic signature of Rebecca Bishop MD on 08/30/2025 at 03:40 PM MONOLOGIST Sign off status: Pending * Provider: Marzena Bishop MD Date: Generated for Kristen membreno/Mary/Lois on: 10/30/2024 03:40 PM MONOLOGIST
--- OUTSIDE RECORDS SUMMARY | 2025-08-14 11:30 | XMS_ITS ---
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 Name Role Phone Kylee Villanueva Primary Care Provider UnavailAraceli Thurston Unavailable [phone] Viv Hamm Unavailable Unavailable REASON FOR VISIT Urticaria follow-up - continued flares Medications Medication SIG (Take, Route, Frequency, Duration) Notes Start Date End Date Status EPINEPHrine 0.3 MG/0.3ML as directed Injection as needed; Duration: 30 days Active Omeprazole 40 MG 1 cap(s) orally once a day Active Levocetirizine Dihydrochloride 5 MG 2 tabs orally twice a day; Duration: 90 days Active Montelukast Sodium 10 MG 1 tablet Orally Once a day; Duration: 90 days Active Famotidine 40 MG 1 tablet Orally Twice a day; Duration: 30 days Active NASAL WASHES N/A as directed intranasally as needed; Duration: 30 Active Flonase Allergy Relief 50 MCG/ACT 2 spray(s) in each nostril once a day; Duration: 90 days Active Benazepril-hydroCHLOR Othiazide 10-12.5 MG 2 tablets Orally Once a day *Please review and pick correct strength-formula tion from Medispan options. If intended option is not shown, discontinue and re-order from Quick Search* Active Singulair 10 MG TAKE 1 TABLET ONCE DAILY; Duration: 90 Active Albuterol Sulfate HFA 108 (90 Base) MCG/ACT 2-4 puffs orally every 4-6 hours; Duration: 30 day(s) Not-Taking tiZANidine HCl 2 MG 2 tab(s) orally every 8 hours; Duration: 30 day(s) Active Pepcid 40 MG 1 tab(s) orally once a day (at bedtime) Active Gabapentin *Please review and pick correct strength-formula tion from Medispan options. If intended option is not shown, discontinue and re-order from Quick Search* Active Encounters Encounter Location Date Provider Diagnosis [facility] [address] [address] 08/14/2025 Araceli Bishop Chronic sinusitis, unspecified J32.9 ; [...] Treatment Notes Treatment Clinical Notes Section Notes 08/14/2025 Chronic sinusitis, unspecified (ICD-10 - J32.9) Immunodeficiency evaluation is normal after receiving Pneumovax and HIB. Continue to treat atopic disease and monitor infection frequency 08/14/2025 Idiopathic urticaria (ICD-10 - L50.1) Unclear cause [...] as risk for malignancy and CV disease. 08/14/2025 Allergic rhinitis due to pollen (ICD-10 - J30.1) Andres clearly suffers from atopic disease based upon history and our skin testing. She discontinued SCIT after receiving therapy for over 1 year because no improvement in rhintiis and congestion. Good control with above medications. 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 She is following with [facility]NT and working with physical therapy and speech therapy. Spirometry and CXR were normal. She is now off all inhalers. 08/14/2025 Allergy to other foods (ICD-10 - Z91.018) appears to have sulfite sensitivity and recommend avoiding problematic food 08/14/2025 Allergic rhinitis due to animal (cat) (dog) hair and dander (ICD-10 - J30.81) 08/14/2025 Other allergic rhinitis (ICD-10 - J30.89) 08/14/2025 Allergy status to sulfonamides (ICD-10 - Z88.2) skin testing is not available for Bactrim. Recommend continued avoidance 08/14/2025 Other Plan Of Treatment Medication Medication Name Sig Start Date Stop Date Notes EPINEPHrine 0.3 MG/0.3ML as directed Inj ection as needed; Duration: 30 days Levocetirizine Dihydrochlori de 5 MG 2 tabs orally twice a day; Duration: 90 days Montelukast Sodium 10 MG 1 tablet Orally Once a day; Duration: 90 days Famotidine 40 MG 1 tablet Orally Twic e a day; Duration: 30 days NASAL WASHES N/A as directed intranas ally as needed; Duration: 30 Flonase Allergy Relief 50 MCG/ACT 2 spray(s) in each nostril once a day; Duration: 90 days Treatment Notes Assessment Notes Chronic sinusitis, unspecified [...] VCD and paresis. She is following with [facility] and working with physical [...] Provider Name:Araceli worley, 09/11/2025 08:45:00 AM, [address] [facility], [address], [place], [address], Progress Notes * Tanner PULIDONaomieOB:1970 ( 55 yo F)Acc No.[id number]:08/14/2025 Progress Notes Patient: Andres DIOR Provider: Marzena Bishop MD :1970 A ge:55 Y S ex:Female Date:08/14/2025 Address:[address] [place], [place] [id number] Pcp:Kylee Villanueva Subjective: * Chief Complaints: * [...] is following with rheumatology and neurology at [facility] and with a esthetics instructor and testing for connective tissue disorders. She is continuing to have wheezing but improved. She is following with Dr. Garcia and diagnosed with VCD and vocal cord paresis. She is f ollowing with [facility]. Marzena bourgeois has a long history [...] *Please review and pick correct strength-formulation from Hostway options. If intended option is not shown, discontinue and re-order from Quick Search*, Taking Benazepril-hydroCHLOROthiazide 10-12.5 MG Tablet 2 tablets Orally Once a day , Notes to Pharmacist: *Please review and pick correct strength-formulation from Hostway options. If intended option is not shown, discontinue and re-order from Quick Search*, Taking Singulair 10 MG Tablet TAKE 1 TABLET ONCE DAILY , Taking NASAL WASHES N/A 1 quart of sterilized tap water or distilled water, 1 tsp NaCl, 1 pinch of baking soda as directed intranasally as needed , Taking Flonase Allergy Relief 50 MCG/ACT Suspension 2 spray(s) in each nostril once a day , Taking Levocetirizine Dihydrochloride 5 MG Tablet 2 tabs orally twice a day , Taking Montelukast Sodium 10 MG Tablet 1 tablet Orally Once a day , Taking Famotidine 40 MG Tablet 1 tablet Orally Twice a day , Taking EPINEPHrine 0.3 MG/0.3ML Solution Auto-injector as directed Injection as needed , Not-Taking/PRN Albuterol Sulfate HFA 108 (90 [...] VCD and paresis. She is following with [facility] and working with physical [...] 8427 DOC MEDS VERIFIED W/[place], [address] PT-FOCUSED HLTH RISK ASSMT * Preventive Medicine: [...] Weeks * Billing Information: * Visit Code: 66034 Office Visit, Est Pt., Level 4. Modifiers: 25 * Procedure Codes: G8427 DOC MEDS VERIFIED W/[place]. [address] PT-FOCUSED HLTH RISK ASSMT. * Electronic signature of Rebecca Bishop MD on 08/30/2025 at 03:41 PM CONTINUOUS PROCESS COFFEE ROASTER Sign off status: Pending * Provider: Marzena Bishop MD Date: Generated for Kristen membreno/Mary/eTairamsmitting on: 10/30/2024 03:41 PM CONTINUOUS PROCESS COFFEE ROASTER History and Physical Notes * HPI (History [...] is following with rheumatology and neurology at [facility] and with a esthetics instructor and testing for connective tissue disorders. She is continuing to have wheezing but improved. She is following with Dr. Garcia and diagnosed with VCD and vocal cord paresis. She is following with [facility]. Andres has a long history of [...]
--- NOTE | ~2025-08-29 | XR_ITS ---
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 Technique: 2 views obtained. Findings: The lungs are clear, no effusion. No pneumothorax. Heart is normal size. Mediastinal and hilar contours are within normal limits. Bony thorax no acute abnormality. Impression: No acute cardiopulmonary abnormality. Reviewed, dictated and finalized at location P. COATING TECHNICIAN Impression: No acute cardiopulmonary abnormality.
--- NOTE | 2025-08-29 16:02 | ECG_ITS ---
Test Date: 2025-08-29 16:05:01 Measurements Intervals [place] Rate: 109 P: 50 CO: 112 QRS: -27 QRSD: 113 T: 51 QT: 361 QTc: 486 Interpretive Statements SINUS TACHYCARDIA WITH SHORT CO INTERVAL BORDERLINE LEFT AXIS DEVIATION [QRS AXIS < -20] MODERATE INTRAVENTRICULAR CONDUCTION DELAY [110+ ms QRS DURATION] NONSPECIFIC ST ABNORMALITY ABNORMAL ECG Compared to ECG 10/09/2024 15:46:14 Short CO interval now present Intraventricular conduction delay now present Electronically Signed On 08-29-2025 17:23:35 MACHINE OPERATOR FARMWORKER by Nahid Coy M.D.
[2025-08-29 16:05] VITALS: BP 137/74; PULSE 116; RESP 20; TEMP 36.4; O2SAT 100
[2025-08-29 16:27] LABS: Hematocrit 38.1 % (37.0-47.0); Hemoglobin 13.4 g/dL (12.0-15.0); Immature Granulocyte Percent A 0.5 % (0-0.5); Lymphocytes Absolute Auto 1.64 K/mm3 (0.9-3.2); Mean Corpuscular HGB Conc 35.2 g/dl (32-36); Mean Corpuscular Hemoglobin 31.5 pg (26-34); Mean Corpuscular Volume 89.6 fl (80-100); Nucleated Red Blood Cells Absolute Auto 0.000 K/mm3 (0.0-0.012); Nucleated Red Blood Cells Perc 0.0 % (0.0-0.2); Platelet Count Result 222 k/mm3 (150-375); Red Blood Count 4.25 M/mm3 (4.2-5.4); White Blood Count 5.6 K/mm3 (4.5-10.0)
[2025-08-29 16:38] LABS: INR 0.9; Prothrombin Time 12.4 Seconds (11.1-14.7)
[2025-08-29 16:39] LABS: Alanine Aminotransferase 53 U/L (6-35); Albumin Level 5.1 g/dL (3.5-5.1); Alkaline Phosphatase 80 U/L (38-126); Anion Gap 8 mmol/L (4-12); Aspartate Amino Transferase 39 U/L (14-36); Bilirubin,Total 1.1 mg/dL (0.2-1.3); Blood Urea Nitrogen 15 mg/dL (7-17); Calcium 8.9 mg/dL (8.4-10.2); Carbon Dioxide 29 mmol/L (22-30); Chloride 88 mmol/L (98-107); Estimated Glomerular Filt Rate > 60; Glucose 86 mg/dL (65-110); Lipase 53 U/L (23-300); Partial Thromboplastin Time 28.6 Seconds (22.3-36.8); Potassium 3.1 mmol/L (3.4-5.0); Sodium 125 mmol/L (137-145); Total Protein 8.3 g/dL (6.3-8.2)
[2025-08-29 16:51] LABS: Troponin I < 0.012 ng/mL (0.000-0.034)
--- NOTE | 2025-08-29 17:40 | ED.CHESTPAIN ---
HPI - Chest Pain General Chief Complaint: Chest Pain <LASHAY Baires - Last Filed: 08/29/25 17:44> Stated Complaint: having a heart attack? <LASHAY Baires - Last Filed: 08/29/25 17:44> Time Seen by Provider: 08/29/25 17:40 <LASHAY Baires - Last Filed: 08/29/25 17:44> Focused HPI: 55 year old female presenting with chest pain that has been ongoing intermittently for two weeks. The chest pain is diffuse and radiates down her left arm and into her neck as well. She states that the pain worsened today and was also temporarily accompanied by nausea and dizziness. Other symptoms include subjective a mildly elevated HR. GENERAL: Well-appearing, well-nourished, and in no acute distress. HEAD: Normocephalic, atraumatic. CHEST: Clear to auscultation. ?No respiratory distress. HEART: Regular rate and rhythm.? NEURO: ?Alert and oriented x3. Patient screened in triage and initial orders placed.? ?Additional care and disposition to be based upon?diagnostic testing and treatment. <LASHAY Baires - Last Filed: 08/29/25 17:44> History of Present Illness HPI narrative: Agree with the HPI. Patient does have history of Sjogren's syndrome and was started on hydroxychloroquine 8 months ago and desipramine a few months ago and has had increasing heart rate since then. States for the past few days, she has been having some chest tightness as well with some pain radiating down her left arm. She also had some nausea but no vomiting earlier today which prompted her to come to the ED. She has had intermittent shortness of breath. Denies recent illnesses, fevers, chills, abdominal pain. No known sick contacts. <Julius Longo DO - Last Filed: 08/29/25 22:55> Related Data Home Medications: Home Medications ?Medication ?Instructions ?Recorded ?Confirmed ?Last Taken ?Type fluticasone propionate 50 1 spray intranasal DAILY 07/10/21 07/10/21 Unknown History mcg/actuation nasal spray,suspension (Flonase Allergy Relief) levocetirizine 5 mg tablet (Xyzal) 5 mg PO DAILY 07/10/21 07/10/21 Unknown History montelukast 10 mg tablet 10 mg PO DAILY 07/10/21 07/10/21 Unknown History (Carmenir) <LASHAY Baires - Last Filed: 08/29/25 17:44> Allergies/Adverse Reactions: Allergies Allergy/AdvReac Type Severity Reaction Status Date / Time Sulfa (Sulfonamide Allergy Intermediate RASH, Verified 10/09/24 15:22 Antibiotics) LIGHT HEADED, JOINT ACHES sulfamethoxazole Allergy Intermediate RASH, Verified 10/09/24 15:22 LIGHT HEADED, JOINT ACHES amoxicillin Allergy Unknown Rash Verified 10/09/24 15:22 Penicillins Allergy Unknown Rash Verified 10/09/24 15:22 sulfamethizole Allergy Unknown Rash Verified 10/09/24 15:22 sulfanilamide Allergy Unknown Rash Verified 10/09/24 15:22 trimethoprim Allergy Unknown Rash Verified 10/09/24 15:22 <LASHAY Baires - Last Filed: 08/29/25 17:44> Review of Systems Review of Systems: Gen.: Denies fevers or chills Eyes: Denies eye pain or visual change ENT: Denies congestion Respiratory: As per HPI CV: As per HPI GI: As per HPI denies burning, urgency, frequency or hematuria Musculoskeletal: Denies back pain or muscle pain Neuro: Denies numbness, tingling, weakness or focal weakness Skin: Denies rash Except as documented, all other systems reviewed and negative <Julius Longo DO - Last Filed: 08/29/25 22:55> [facility] Past Medical History Medical History: Medical History Injury of triangular fibrocartilage complex (TFCC) Numbness and tingling of both feet Numbness and tingling Other spondylosis with radiculopathy, lumbar region Gastric polyp Screen for colon cancer Essential (primary) hypertension Dyspnea on exertion <LASHAY Baires - Last Filed: 08/29/25 17:44> Family History Family History: Family History Father Hypertension Carcinoma of colon <LASHAY Baires - Last Filed: 08/29/25 17:44> Social History Social History: Social History Alcohol intake: current <LASHAY Baires - Last Filed: 08/29/25 17:44> Exam Narrative: APPEARANCE: No acute distress, nontoxic, resting in bed EYES: EOMI HEENT: Normocephalic, atraumatic, OMM RESPIRATORY: No respiratory distress Clear to auscultation bilaterally with no rhonchi wheezing or rales. CARDIOVASCULAR: Tachycardic with regular rhythm without murmurs rubs or gallops. ABDOMINAL: Soft, nontender, nondistended, no rebound or guarding MUSCULOSKELETAl: Moves all extremities. No clubbing, cyanosis or edema. NEURO: Awake and alert. Following commands, speech normal, no focal deficits SKIN:: Warm, dry. No rashes lesions or abrasions PSYCHIATRIC: Normal affect/mood, <Julius Longo DO - Last Filed: 08/29/25 22:55> Course Vital Signs Vital signs: Vital Signs Temperature 97.5 F L 08/29/25 16:05 Pulse Rate 116 H 08/29/25 16:05 Respiratory Rate 20 08/29/25 16:05 Blood Pressure 137/74 08/29/25 16:05 Pulse Oximetry 100 08/29/25 16:05 Temperature 97.9 F 08/29/25 18:24 Pulse Rate 80 08/29/25 21:40 Respiratory Rate 16 08/29/25 21:40 Blood Pressure 113/74 08/29/25 21:40 Pulse Oximetry 99 08/29/25 21:40 Oxygen Delivery Room Air 08/29/25 18:26 <LASHAY Baires - Last Filed: 08/29/25 17:44> Vital Signs Temperature 97.5 F L 08/29/25 16:05 Pulse Rate 116 H 08/29/25 16:05 Respiratory Rate 20 08/29/25 16:05 Blood Pressure 137/74 08/29/25 16:05 Pulse Oximetry 100 08/29/25 16:05 Temperature 97.9 F 08/29/25 18:24 Pulse Rate 80 08/29/25 21:40 Respiratory Rate 16 08/29/25 21:40 Blood Pressure 113/74 08/29/25 21:40 Pulse Oximetry 99 08/29/25 21:40 Oxygen Delivery Room Air 08/29/25 18:26 <Julius Longo DO - Last Filed: 08/29/25 22:55> MDM - Chest Pain MDM Narrative Medical decision making narrative: 55-year-old female Presenting for intermittent chest pain and concerns for tachycardia. On initial evaluation patient was in no acute distress afebrile, hemodynamic stable. Differentials include but are not limited to: ACS, PE, PNA, bronchitis, costochondritis, pleurisy, viral syndrome, GERD Notable exam findings: Heart and lungs clear. Abdomen soft and nontender. Chest wall nontender. Notable lab findings: CBC without significant abnormalities. Hyponatremic to 125. Lipase within normal limits. Troponin negative. Repeat troponin negative. Notable imaging findings: Chest x-ray showed no acute process. EKG notable for a prolonged QTc at 480. Patient was cleared from a ACS standpoint. She was noted to have a prolonged QT which is likely due to her to hydroxychloroquine. I advised her to speak with her prescribing provider about this to see if she needed any dosage adjustments or to be switched to another medication. She was hyponatremic and was given 2 L NS bolus and this was rechecked and it was improving to 127. She was otherwise asymptomatic from this standpoint. She was educated on intake of electrolyte containing fluids. She was advised follow-up with her PCP in the next week for re-evaluation. Patient was agreeable to this plan. Given strict return precautions. <Julius Longo DO - Last Filed: 08/29/25 22:55> Medical Records Data Attestation: I reviewed the patient's medical records. <Julius Longo DO - Last Filed: 08/29/25 22:55> Lab Data Attestation: I reviewed the patient's lab results. <Julius Longo DO - Last Filed: 08/29/25 22:55> Result diagrams: 08/29/25 16:09 08/29/25 21:02 <LASHAY Baires - Last Filed: 08/29/25 17:44> Labs: Lab Results 08/29/25 08/29/25 08/29/25 Range/Units 16:09 19:13 21:02 WBC 5.6 (4.5-10.0) K/mm3 RBC 4.25 (4.2-5.4) M/mm3 Hgb 13.4 (12.0-15.0) g/dL Hct 38.1 (37.0-47.0) % MCV 89.6 (80-100) fl MCH 31.5 (26-34) pg MCHC 35.2 (32-36) g/dl RDW 12.4 (11.5-14.5) % Plt Count 222 (150-375) k/mm3 MPV 8.9 (7.4-10.4) fl Immature Gran % (Auto) 0.5 (0-0.5) % Neut % (Auto) 59.1 (45.5-73.1) % Lymph % (Auto) 29.3 (18.3-44.2) % [place] % (Auto) 8.6 H (2.6-8.5) % Eos % (Auto) 1.8 (0-4.4) % Baso % (Auto) 0.7 (0.2-1.2) % Lymph # (Auto) 1.64 (0.9-3.2) K/mm3 [place] # (Auto) 0.5 (0.1-0.6) K/mm3 Eos # (Auto) 0.1 (0-0.3) K/mm3 Baso # (Auto) 0.0 (0.0-0.1) K/mm3 Abs Immat Gran (auto) 0.03 (0.00-0.031) K/mm3 Absolute Neuts (auto) 3.3 (1.3-6.7) K/mm3 Absolute Nucleated RBC 0.000 (0.0-0.012) K/mm3 Nucleated RBC % 0.0 (0.0-0.2) % PT 12.4 (11.1-14.7) Seconds INR 0.9 APTT 28.6 (22.3-36.8) Seconds D-Dimer 0.31 (<0.48) ug/mL Sodium 125 L 127 L (137-145) mmol/L Potassium 3.1 L 3.9 (3.4-5.0) mmol/L Chloride 88 L 95 L (98-107) mmol/L Carbon Dioxide 29 26 (22-30) mmol/L Anion Gap 8 6 (4-12) mmol/L BUN 15 12 (7-17) mg/dL Creatinine 0.84 0.77 (0.7-1.0) mg/dL Estim Creat Clear Calc Not Reportable Not Reportable Estimated GFR > 60 > 60 (59 - ) Glucose 86 79 (65-110) mg/dL Calcium 8.9 8.1 L (8.4-10.2) mg/dL Total Bilirubin 1.1 (0.2-1.3) mg/dL AST 39 H (14-36) U/L ALT 53 H (6-35) U/L Alkaline Phosphatase 80 (38-126) U/L Troponin I < 0.012 < 0.012 (0.000-0.034) ng/mL Total Protein 8.3 H (6.3-8.2) g/dL Albumin 5.1 (3.5-5.1) g/dL Lipase 53 (23-300) U/L <LASHAY Baires - Last Filed: 08/29/25 17:44> Lab Results 08/29/25 08/29/25 08/29/25 Range/Units 16:09 19:13 21:02 WBC 5.6 (4.5-10.0) K/mm3 RBC 4.25 (4.2-5.4) M/mm3 Hgb 13.4 (12.0-15.0) g/dL Hct 38.1 (37.0-47.0) % MCV 89.6 (80-100) fl MCH 31.5 (26-34) pg MCHC 35.2 (32-36) g/dl RDW 12.4 (11.5-14.5) % Plt Count 222 (150-375) k/mm3 MPV 8.9 (7.4-10.4) fl Immature Gran % (Auto) 0.5 (0-0.5) % Neut % (Auto) 59.1 (45.5-73.1) % Lymph % (Auto) 29.3 (18.3-44.2) % [place] % (Auto) 8.6 H (2.6-8.5) % Eos % (Auto) 1.8 (0-4.4) % Baso % (Auto) 0.7 (0.2-1.2) % Lymph # (Auto) 1.64 (0.9-3.2) K/mm3 [place] # (Auto) 0.5 (0.1-0.6) K/mm3 Eos # (Auto) 0.1 (0-0.3) K/mm3 Baso # (Auto) 0.0 (0.0-0.1) K/mm3 Abs Immat Gran (auto) 0.03 (0.00-0.031) K/mm3 Absolute Neuts (auto) 3.3 (1.3-6.7) K/mm3 Absolute Nucleated RBC 0.000 (0.0-0.012) K/mm3 Nucleated RBC % 0.0 (0.0-0.2) % PT 12.4 (11.1-14.7) Seconds INR 0.9 APTT 28.6 (22.3-36.8) Seconds D-Dimer 0.31 (<0.48) ug/mL Sodium 125 L 127 L (137-145) mmol/L Potassium 3.1 L 3.9 (3.4-5.0) mmol/L Chloride 88 L 95 L (98-107) mmol/L Carbon Dioxide 29 26 (22-30) mmol/L Anion Gap 8 6 (4-12) mmol/L BUN 15 12 (7-17) mg/dL Creatinine 0.84 0.77 (0.7-1.0) mg/dL Estim Creat Clear Calc Not Reportable Not Reportable Estimated GFR > 60 > 60 (59 - ) Glucose 86 79 (65-110) mg/dL Calcium 8.9 8.1 L (8.4-10.2) mg/dL Total Bilirubin 1.1 (0.2-1.3) mg/dL AST 39 H (14-36) U/L ALT 53 H (6-35) U/L Alkaline Phosphatase 80 (38-126) U/L Troponin I < 0.012 < 0.012 (0.000-0.034) ng/mL Total Protein 8.3 H (6.3-8.2) g/dL Albumin 5.1 (3.5-5.1) g/dL Lipase 53 (23-300) U/L <Julius Longo DO - Last Filed: 08/29/25 22:55> Imaging Data Attestation: I personally reviewed and interpreted this imaging study as follows: <Julius Longo Last Filed: 08/29/25 22:55> Radiologist's impression: Impressions Chest X-Ray 08/29/25 16:34 Impression: No acute cardiopulmonary abnormality. <Julius Longo Last Filed: 08/29/25 22:55> ECG Data EKG #1: Attestation: I personally reviewed and interpreted this ECG as follows: <Julius Longo - Last Filed: 08/29/25 22:55> ECG completion date: 08/29/25 <Julius Longo Last Filed: 08/29/25 22:55> ECG completion time: 16:05 <Julius Longo Last Filed: 08/29/25 22:55> Interpretation: Sinus tachycardia rate of 109 with short DE interval, borderline left axis deviation, moderate intraventricular conduction, nonspecific ST change <Julius Longo Last Filed: 08/29/25 22:55> EKG #2: Attestation: I personally reviewed and interpreted this ECG as follows: <Julius Longo Last Filed: 08/29/25 22:55> ECG completion date: 08/29/25 <Julius Longo Last Filed: 08/29/25 22:55> ECG completion time: 19:35 <Julius Longo Last Filed: 08/29/25 22:55> Interpretation: Normal sinus rhythm rate of 92, borderline left axis, normal intervals, nonspecific ST change, and no significant change from earlier <Julius Longo DO - Last Filed: 08/29/25 22:55> Discharge Plan Discharge Clinical Impression: Prolonged QT interval, Acute hyponatremia Chest pain Qualifiers: Chest pain type: unspecified Qualified Code(s): R07.9 - Chest pain, unspecified <LASHAY Baires Last Filed: 08/29/25 17:44> Patient Disposition: Home <LASHAY Baires Last Filed: 08/29/25 17:44> Condition: Stable <LASHAY Baires Last Filed: 08/29/25 17:44> Instructions: Antibiotic Form, Chest Pain (ED), Hyponatremia (ED) <LASHAY Baires - Last Filed: 08/29/25 17:44> Additional Instructions: Drink electrolyte containing fluids. Follow up with her PCP in the next week for re-evaluation. Discussed your hydroxychloroquine dose with your prescribing provider given her prolonged QT. Return to the ED for any new or worsening symptoms. <LASHAY Baires - Last Filed: 08/29/25 17:44> Patient Language: Czech <LASHAY Baires - Last Filed: 08/29/25 17:44> Prescriptions: No Action levocetirizine [Xyzal] 5 mg tablet 5 mg PO DAILY montelukast [Singulair] 10 mg tablet 10 mg PO DAILY fluticasone propionate [Flonase Allergy Relief] 50 mcg/actuation spray,suspension 1 spray intranasal DAILY Rx Instructions: administer into each nostril cyclobenzaprine 10 mg tablet 10 mg PO TID PRN (Reason: muscle spasm) Qty: 60 0RF ibuprofen 600 mg tablet 600 mg PO TID PRN (Reason: pain) Qty: 20 0RF omeprazole 20 mg capsule,delayed release(DR/EC) 20 mg PO DAILY Qty: 90 1RF benazepril-hydrochlorothiazide 10-12.5 mg tablet See Rx Instructions .ROUTE .COMPLEX Qty: 90 3RF Dose Instruction: TAKE 1 TABLET DAILY Rx Instructions: TAKE 1 TABLET DAILY <LASHAY Baires - Last Filed: 08/29/25 17:44> Follow-up/Referrals: Angelica,MD Kylee [Primary Care Provider, Unknown] <LASHAY Baires - Last Filed: 08/29/25 17:44> Stand Alone Forms: Work/School Release IP <LASHAY Baires - Last Filed: 08/29/25 17:44>
[2025-08-29 18:24] VITALS: BP 150/75; PULSE 97; RESP 20; TEMP 36.6; O2SAT 100
[2025-08-29] MEDS: ASPIRIN 81 MG CHEWABLE TABLET 324 MG PO (18:28)
[2025-08-29] MEDS: SODIUM CHLORIDE 0.9% IV 1,000 ML 999 ML IV CONT ×2 (19:10→19:56)
--- NOTE | 2025-08-29 19:32 | ECG_ITS ---
Test Date: 2025-08-29 19:35:50 Measurements Intervals [place] Rate: 92 P: 39 RI: 121 QRS: -8 QRSD: 102 T: 49 QT: 385 QTc: 477 Interpretive Statements SINUS RHYTHM Electronically Signed On 08-30-2025 07:21:13 HANDICAPPED TEACHER by Holger Kulkarni D.O
[2025-08-29 19:43] LABS: Troponin I < 0.012 ng/mL (0.000-0.034)
[2025-08-29] MEDS: POTASSIUM CHLORIDE 20 MEQ ER TABLET 40 MEQ PO (19:56)
--- NOTE | 2025-08-29 20:00 | PC.NURSE ---
Per [place], BNP should be drawn after the second bag of NaCl is at least half way full.
[2025-08-29 21:16] LABS: Anion Gap 6 mmol/L (4-12); Blood Urea Nitrogen 12 mg/dL (7-17); Calcium 8.1 mg/dL (8.4-10.2); Carbon Dioxide 26 mmol/L (22-30); Chloride 95 mmol/L (98-107); Estimated Glomerular Filt Rate > 60; Glucose 79 mg/dL (65-110); Potassium 3.9 mmol/L (3.4-5.0); Sodium 127 mmol/L (137-145)
--- NOTE | 2025-08-29 21:16 | PC.NURSE ---
Pt advised to stop bending her arm so her fluids can continue to flow freely.
[2025-08-29 21:40] VITALS: BP 113/74; PULSE 80; RESP 16; O2SAT 99
--- OUTSIDE RECORDS SUMMARY | 2025-08-30 15:07 | XMS_ITS | Clinical Summary ---
Author Organization [facility] Address [address] [place] [address] Care Team Providers Care Human Development Professor Name Role Phone Kylee Villanueva MD Primary Care Provider [phone] Source Comments [facility],non-owned Affiliates and Associated Physician Practices is amultiple site organization consisting of ambulatory clinics and hospital sitesin [place], [place], [place] and [place]. This disclosure is being madepursuant to the Care Everywhere program and may not contain all information available regarding this patient. Last updated 18.[facility] Allergies Active Allergy Reactions Criticality Noted Date [...] fluticasone propionate (FLONASE) 50 MCG/ACT nasal spray [place] 2 (two) sprays into the nose at bedtime 2 Active levocetirizine (XYZAL) 5 MG tablet Take 1 (one) tablet by mouth 4 times daily 1 Active montelukast (SINGULAIR) 10 MG tablet Take 1 (one) tablet by mouth 9 Active Cranberry-Vitam in C 84-20 MG Take 4,200 mg by mouth 2 times daily Active multivitamin daily tablet Take by mouth once daily Active Restasis MultiDose 0.05 % ophthalmic suspension Instill 1 (one) drop into both eyes 4 times daily Active doxycycline hyclate (Vibramycin) 100 MG capsule 5 Active omeprazole (PriLOSEC) 40 MG capsule Take 1 (one) capsule by mouth daily before breakfast 90 capsule 3 5 Active EPINEPHrine (Epipen) 0.3 MG/0.3ML auto-injector pen as needed 4 Active hydroxychloroqu ine (Plaquenil) 200 MG tablet Take 1 (one) tablet by mouth once daily 5 Active famotidine (Pepcid) 40 MG tablet Take 1 (one) tablet by mouth at bedtime 90 tablet 3 5 Active desipramine (Norpramin) 10 MG tablet Take 2 (two) tablets by mouth at bedtime 60 tablet 5 Active hydrocortisone, rectal, (Anusol-HC) 2.5 % cream Insert into the rectum 3 times daily as needed for Hemorrhoids 28 g 1 5 Active rifAXIMin (Xifaxan) 550 MG tablet Take 1 (one) tablet by mouth 3 times daily for 14 days 42 tablet 5 08/20/20 25 Active Problems Problem Noted Date Diagnosed Date Small intestinal bacterial overgrowth (SIBO) Fructose intolerance 06/08/2025 Elevated liver enzymes 01/25/2024 Dysphagia 04/06/2023 Hepatic steatosis 04/06/2023 Elevated LFTs 05/14/2022 Gastroesophageal reflux disease 05/14/2022 Family history of colon cancer 05/14/2022 Resolved Problems Problem Noted Date Diagnosed Date Resolved Date Constipation 05/14/2022 05/04/2023 Encounters Date Type Department Care Team Description 08/07/2025 Telephone [facility] [place] [address] Matthew Bolivar, [address] [address] Anitha Cramer, FRUIT HARVESTER-MANAGER VOICE Medication Prior Auth Request (xifaxan) 06/08/2025 11:30 AM CDT Office Visit [facility] [place] [address] Matthew Bolivar, [address] [place] [id number] Anitha Cramer, FRUIT HARVESTER-MANAGER VOICE Elevated LFTs (Primary Dx); Hepatic steatosis; Fructose intolerance; Small intestinal bacterial overgrowth (SIBO); Gastroesophageal reflux disease, unspecified whether esophagitis present 06/08/2025 Travel from Last 3 Months Immunizations Immunization Administration Dates Next Due COVID MODERNA BIVALENT 12Y+ 50MCG/0.5ML 07/31/20 Covid Moderna primary monova lent 12+ yr 0.5mL 09/06/2021,01/13/2021,12/11/2020 Social History Tobacco Use Types Packs/Day Years Used Date Smoking Tobacco: Never Smokeless Tobacco: Never Tobacco Cessation:Counseling Given: Not Answered Alcohol Use Standard Drinks/Week Comments Yes 2 [...] Sign Reading Time Taken Comments Blood Pressure 130/82 06/08/2025 11:33 AM CDT Pulse 115 06/08/2025 11:33 AM CDT Temperature 36.4 C (97.5 F) 04/17/2024 9:39 AM CDT Respiratory Rate 18 01/10/2025 11:03 AM CDT Oxygen Saturation 98% 06/08/2025 11:33 AM CDT Inhaled Oxygen Concentration - - Weight 77.6 kg (171 lb) 06/08/2025 11:33 AM CDT Height 170.2 cm (5' 7) 03/12/2025 3:00 PM CDT Body Mass Index 26.78 03/12/2025 3:00 PM CDT Plan of Treatment Upcoming Encounters Date Type Department Care Team (Late st Contact Info) Description 10/09/2025 1:30 PM SUBSTITUTE NURSE Office Visit [facility] [place] [address] Matthew Bolivar, [address] [place] [address] Fabian Anitha Selma, FRUIT HARVESTER-[facility] [address] [facility] [address] [place] [address] Health Maintenance Due Date Last Done [...] 2020 ZOSTER VACCINE (1 of 2) 2020 DEPRESSION SCREENING 10/25/2024 COVID-19 VACCINE ( season) 2025 07/31/2022, 09/06/2021, 01/13/2021, Additional history exists INFLUENZA VACCINE (#1) 2025 , 08/10/2023, 08/07/2023, Additional history exists MAMMOGRAM 12/06/2025 12/06/2023, 11/25, 07/07/2021, Additional history exists SCREENING FOR DIABETES 04/10/2027 04/10/2024, 2021 PAP SMEAR 08/30/2027 08/30/2024, 08/10/2023 LIPID TESTING 12/13/2028 12/13/2023, 03/16/2022 COLON MONITORING [...] Procedure Name Priority Date/Time Associated Diagnosis Comments BASIC METABOLIC PANEL (CALCIUM TOTAL) STAT 04/10/2024 7:51 AM CDT Preoperative examination HEPATITIS C AB W/RFLX TO HCV RNA QN PCR Routine 05/14/2022 2:41 PM CDT Elevated LFTs from Last 3 Months or Most Recently Relevant to Health Maintenance Results * (ABNORMAL) BASIC METABOLIC PANEL (CALCIUM TOTAL) (04/10/2024 7:51 AM CDT) Glucose 102 70 - 105 mg/dL 04/10/2024 8:10 AM CDT [facility] Sodium 141 136 - 145 mmol/L 04/10/2024 8:10 AM CDT [facility] Potassium 3.7 3.5 - 5.1 mmol/L 04/10/2024 8:10 AM CDT [facility] Chloride 108(H) 98 - 107 mmol/L 04/10/2024 8:10 AM CDT [facility] CO2 23 22 - 29 mmol/L 04/10/2024 8:10 AM CDT [facility] Calcium 9.7 8.4 - 10.4 mg/dL 04/10/2024 8:10 AM CDT [facility] Anion Gap 10 6 - 16 mmol/L 04/10/2024 8:10 AM CDT [facility] BUN 23 7 - 26 mg/dL 04/10/2024 8:10 AM CDT [facility] Creatinine 0.88 0.57 - 1.11 mg/dL 04/10/2024 8:10 AM CDT [facility] eGFR by CKD-EPI 79(L) >=90 mL/min/1.7 3 m2 04/10/2024 8:10 AM CDT [facility] Blood BLOOD SPECIMEN / Unknown Venipuncture / Unknown 04/10/2024 7:51 AM CDT 04/10/2024 7:54 AM CDT us Janet Ely DO LAB - CHEMISTRY ORDERABLES Nasra l Result Performing Organization Address [facility] Co de Phone Number [facility] [address] [place] [address] * HEPATITIS C AB W/RFLX [...] a test for HCV RNA (test code 15063) is suggested. For additional information please refer to http://education.ReInnervate/faq/JGY05t2 (This link is being provided for informational/ educational purposes only.) Test Performed at: [employer] [address] [place] [address] SHAKIR HOLLIS DO,MPH Blood BLOOD SPECIMEN / Unknown 05/14/2022 2:41 PM CDT 05/14/2022 2:42 PM CDT Anitha Cramer FRUIT HARVESTER-MANAGER VOICE LAB - CHEMISTRY ORDERAB LES Final Result Performing Organization Address [facility] Co de Phone Number [facility] [phone] [place] [address] from Last 3 Months or Most Recently Relevant to Health Maintenance Insurance [facility] Care Teams Human Development Professor Relationship Specialty [place] [address] [address] [address] PCP - General Family Medicine 01/25/24
--- OUTSIDE RECORDS SUMMARY | 2025-08-30 15:07 | XMS_ITS | Encounter Summary ---
Author Organization [facility] Address [address] [place] [address] Care Team Providers Care Promotions Coordinator Name Role Phone Shaen Noble MD Unavailable [phone] Kylee Villanueva MD Primary Care Provider Reynaldo Bunch MD Unavailable [phone] Encounter Details Date Type Department Care Team (Late st Contact Info) Description 01/18/2025 Hospital Encounter [facility] Operating Room [address] [place] [address] Feliz Miranda MD [address] [address] Social History Tobacco Use Types Packs/Day Years Used Date Smoking Tobacco: Never Passive Smoke Exposure: Past Smokeless Tobacco: Never Alcohol Use Standard Drinks/Week Comments Never 0 (1 standard drink = 0.6 oz pur e alcohol) AUDIT-C Answer Date Recorded Q1: How often do you have a drink containing alcohol? Never 06/05/2025 Q2: How many drinks containi ng alcohol do you have on a typical day when you are drinking? Patient does not drink Q3: How often do you have si x or more drinks on one occasion? 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 Never 06/05/2025 7:52 AM CDT Stephanie Villanueva, BO Q2: How many drinks containing alcohol do you have on a typical day when you are drinking? Patient does not drink 06/05/2025 7:52 AM CDT Stephanie Villanueva, BO Q3: How often do you have six or more drinks on one occasion? Never 06/05/2025 7:52 AM CDT Stephanie Villanueva, DOROTHYA * BP Location Answer Date of Assessment Author Anne patel 02/22/2025 7:42 AM CDT Brody Peter CMA documented as of this encounter Plan of Treatment Not on file documented as of this encounter Visit Diagnoses Diagnosis Decreased peripheral vision, left Myogenic ptosis of left eyelid documented in this encounter Admitting Diagnoses Diagnosis Decreased peripheral vision, left Myogenic ptosis of left eyelid documented in this encounter Care Teams Promotions Coordinator Relationship Specialty Start [place] [address] [facility] [address] [place] [address] PCP - General Family Medicine 07/12/23 Shane Noble MD [address] [place] [phone] Fellow Neurology 08/17/22 Reynaldo Bunch MD [address] [place] [id number] Orthopedic Surgery 08/10/23 documented as of this encounter
--- OUTSIDE RECORDS SUMMARY | 2025-08-30 15:07 | XMS_ITS | Clinical Summary ---
Author Organization [facility] B Address [address] [place] [address] Care Team Providers Care Wholesale Loan Processor Name Role Phone Shane Noble MD Unavailable [phone] Kylee Villanueva MD Primary Care Provider [phone] Reynaldo Bunch MD Unavailable [phone] Allergies Active Allergy Reactions Criticality Noted [...] IN EACH NOSTRIL EVERY DAY 2 Active benazepril-hydr oCHLOROthiazide (LOTENSIN HCT) 10-12.5 mg per tablet Take 2 tablets by mouth every morning 2 Active cranberry conc-ascorbic acid 4,200-20 mg capsule Take 4,200 mg by mouth daily Active mv-mn/folic/lut ein/herbal 293 (ALIVE WOMEN'S 50 PLUS GUMMY ORAL) Take by mouth daily Active famotidine (PEPCID) 40 mg tablet Take 1 tablet (40 mg total) by mouth daily Active omeprazole (PriLOSEC) 40 mg capsule 1 capsule (40 mg total) 2 (two) times a day [address] (VOLTAREN) 75 mg EC tabletIndicatio ns:Pain Take 1 tablet (75 mg total) by mouth daily as needed for pain 90 tablet 5 Active cycloSPORINE (RESTASIS) 0.05 % ophthalmic emulsionIndicat ions:Keratoconj unctivitis Sicca,Sjogren's Syndrome Administer 1 drop into both eyes every 12 (twelve) hours 180 each 1 5 Active EPINEPHrine 0.3 mg/0.3 mL auto-injection syringe as needed 4 Active nortriptyline (PAMELOR) 10 mg capsule Take 2 capsules (20 mg total) by mouth nightly 5 Active hydroxychloroqu ine (PLAQUENIL) 200 mg tablet Take 1 tablet (200 mg total) by mouth daily Alternating with 2 tablets (400 mg total) by mouth every other day. 135 tablet 1 5 Active Active Problems Problem Noted Date Diagnosed Date Conjunctival hemorrhage of right eye 12/26/2024 Assessment & Plan (12/26/2024 8:43 AM CLINICAL BIOSTATISTICS DIRECTOR): CINTIA with some pain this morning. Now [...] (10/30/2022): Added automatically from request for surgery [id number] ALT (SGPT) level raised 04/10/2022 Calculus of gallbladder with out cholecystitis without obstruction 04/10/2022 Heartburn 03/17/2021 Hypertension 02/26/2021 GERD (gastroesophageal reflux disease) Allergies 02/26/2021 Environmental and seasonal allergies 02/26/2021 Encounters Date Type Department Care Team Description 08/23/2025 Orders Only [facility] Medicine Pathology Outreach [address] [place] [address] Felix Tripathi MD Connective tissue disorder; Chest wall deformity; Joint dislocation 08/14/2025 Orders Only [facility] Medicine Neuro Muscle [address] [facility] 6th [place] [address] Elian Gray MD Urinary retention (Primary Dx) 08/13/2025 9:07 AM CDT - 08/13/2025 11:59 PM CDT Hospital Encounter [facility] [address] [place] [address] Tachycardia; High risk medication use Discharge Disposition: Discharge to home or self care 08/06/2025 2:00 PM CDT Telemedicine [facility] Pediatric Genetics [facility] 2nd [place] [address] Connective tissue disorder (Primary Dx); Chest wall deformity; Joint dislocation 07/31/2025 10:20 AM CDT Lab [facility] [address] [place] [address] Abnormal urine finding 06/24/2025 Telephone [facility] Pediatric [facility] 2nd [place] [address] Felix Tripathi MD Med Management (Called to inform Andres that exome sequencing had been approved by a electromedical equipment technician at [facility]. ) 06/19/2025 8:30 AM CDT Therapy [facility] Physical Therapy [address] [place] [phone] Mariaelena Steve PTA Chronic right shoulder pain (Primary Dx) 06/12/2025 10:00 AM CDT Therapy [facility] Physical Therapy [address] [place] [phone] Mariaelena Setve PTA Chronic right shoulder pain (Primary Dx) 06/05/2025 10:30 AM CDT Therapy [facility] Physical Therapy [address] [place] [phone] Mariaelena Steve PTA Chronic right shoulder pain (Primary Dx) 06/05/2025 9:37 AM CDT - 06/05/2025 11:59 PM CDT Hospital Encounter [facility] [address] [place] [address] Sjogren's syndrome, with unspecified organ involvement Discharge Disposition: Discharge to home or self care 06/05/2025 8:45 AM CDT Lab [facility] Medicine Endocrinology Metabolism and Lipid [address] [facility] 5th [place] [address] [place] [address] Sjogren's syndrome, with unspecified organ involvement 06/05/2025 8:00 AM CDT Office Visit [facility] Rheumatology [address] [facility] 5th [place] [address] [place] [address] Briana Clemens MD Sjogren's syndrome, with unspecified organ involvement (Primary Dx) 05/31/2025 9:40 AM CDT Office Visit [facility] Medicine Orthopaedic Surgery [address] [facility] Medical Office Building [address] [place] [phone] Igor Nguyen MD Right wrist pain (Primary Dx) from Last 3 Months Immunizations Immunization Administration [...] GERD (gastroesophageal reflux disease) April 1998 Tinnitus 1989 Ptosis of left eyelid 08/21/2024 REYES Nuclear [...] Smokeless Tobacco: Never Tobacco Cessation:Counseling Given: No Alcohol Use Standard Drinks/Week Comments Never 0 [...] 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 Not on file Not on fi le Last Filed Vital Signs Vital Sign Reading Time Taken Comments Blood Pressure 125/77 06/05/2025 7:52 AM CDT Pulse 103 06/05/2025 7:52 AM CDT Temperature 36.8 C (98.2 F) 06/05/2025 7:52 AM CDT Respiratory Rate 18 06/05/2025 7:52 AM CDT Oxygen Saturation 100% 06/05/2025 7:52 AM CDT Inhaled Oxygen Concentration - - Weight 77 kg (169 lb 12.8 oz) 06/05/2025 7:52 AM CDT Height 170.1 cm (5' 6.97) 05/25/2025 2:49 PM CD T Body Mass Index 26.62 05/25/2025 2:49 PM CDT Plan of Treatment Health Maintenance Due Date Last Done Comments Breast Cancer Screening-Mammogram 1970 Colon Cancer Screening-Colonoscopy 1970 Depression Screening 1970 Hepatitis B Screening 1988 Regular Well Visit/Exam 18-64 1988 Pneumococcal vaccine <65 (2 of 2 - PCV) 10/21/2022 10/21/2021 DTaP/Tdap/Td Vaccine (1 - Tdap) 06/13/2024 Covid-19 Vaccine (5 - 2024-2 6 season) 2025 07/31/2022, 09/06/2021, 01/13/2021, Additional history exists Influenza Vaccine (#1) 2025 , 08/10/2023, 08/07/2023, Additional history exists Cervical Cancer Screening 08/30/20252023, 08/10/2023, 07/31/2022 Zoster Vaccine Completed 12/20/2021, 07/26/2021 Hepatitis C Screening Completed 12/14/2023 Procedures Procedure Name Priority Date/Time Associated Diagnosis Comments ECG 12-LEAD Routine 08/13/2025 9:42 AM CDT Tachycardia High risk medication use PROTEIN / CREATININE RATIO, URINE, RANDOM Routine 07/31/2025 9:40 AM CDT Abnormal urine finding URINALYSIS AND REFLEX TO MICROSCOPIC AND CULTURE Routine 07/31/2025 9:40 AM CDT Abnormal urine finding URINALYSIS, MICROSCOPIC ONLY Routine 06/05/2025 8:42 AM CDT Sjogren's syndrome, with unspecified organ involvement PROTEIN / CREATININE RATIO, URINE, RANDOM Routine 06/05/2025 8:42 AM CDT Sjogren's syndrome, with unspecified organ involvement URINALYSIS AND REFLEX TO MICROSCOPIC AND CULTURE Routine 06/05/2025 8:42 AM CDT Sjogren's syndrome, with unspecified organ involvement ERYTHROCYTE SEDIMENTATION RATE Routine 06/05/2025 8:37 AM CDT Sjogren's syndrome, with unspecified organ involvement CRP (ACUTE PHASE) Routine 06/05/2025 8: 37 AM CDT Sjogren's syndrome, with unspecified organ involvement CBC WITH AUTO DIFFERENTIAL Routine 06/05/2025 8:37 AM CDT Sjogren's syndrome, with unspecified organ involvement ORTHO CASTING/SPLINTING Routine 05/31/2025 1:16 PM CDT Right wrist pain GA ARTHROCENTESIS ASPIR&/INJ INTERM JT/BURS W/O US Routine 05/31/2025 9:40 AM CDT Right wrist pain HEPATITIS PANEL, ACUTE Routine 4:08 PM CLINICAL BIOSTATISTICS DIRECTOR Cervicalgia from Last 3 Months or Most Recently Relevant to Health Maintenance Results * ECG 12 lead (08/13/2025 9:42 AM CDT) Ventricular Rate EKG/Min 98 BPM [facility] Atrial Rate 98 BPM [facility] GA-Interval (MSEC) 132 ms [facility] QRS-Interval (MSEC) 100 ms [facility] QT-Interval (MSEC) 356 ms [facility] QTc 454 ms [facility] P [place] 52 degrees [facility] R [place] -16 degrees [facility] T [place] 53 degrees [facility] Diagnosis Normal sinus rhythm Possible Left atrial enlargement Borderline ECG No previous ECGs available Confirmed by DANIA COLÓN M.D ([id number]) on 08/13/2025 1:10:35 PM [facility] 08/13/2025 9:42 AM CDT 08/13/2025 1:10 PM CDT Briana Clemens MD ECG ORDERABLES Final Result [facility] * Urinalysis reflex to microscopic and culture Urine, clean voided (07/31/2025 9:40 AM CDT) Color, ur Straw Yellow Clarity, ur Clear Clear [facility] Specific gravity, ur 1.008 1.003 - 1.030 [facility] pH, urine 7.5 [facility] Comment: Interpretive Data U rine pH is affected by diet, medications, systemic acid-base disturbances, and renal tubular function. pH may affect urinary stone formation. For example, urine pH below 6.0 may help reduce the tendency for calcium phosphate stones and pH greater than 6.0 may reduce the tendency for uric acid stone formation. Source: [facility] Current Interpretive Data was last revised on 2017 Protein, ur ql Negative Negative [facility] Glucose, ur ql Negative Negative [facility] Ketones, ur Negative Negative [facility] Bilirubin, ur Negative Negative [facility] Blood, ur Negative Negative [facility] Urobilinogen, ur <2.0 <2.0 mg/dL [facility] Nitrite, ur Negative Negative [facility] Leukocyte esterase, ur Negative Negative [facility] UA reflex comment Reflex conditions for microscopic UA and culture not met. [facility] Urine, clean voided 07/31/2025 9:40 AM CDT 07/31/2025 10:22 AM CDT Briana Clemens MD LAB MICROBIOLOGY - GENERAL ORDER MARCIA Final Result [facility] [place] [address] * Protein / creatinine ratio, urine, random (07/31/2025 9:40 AM CDT) Protein, ur, quant <5.0 mg/dL Comment: Interpretive Data No reference range established. Current interpretive data was last revised 2019. Creatinine Ur 20.3 mg/dL [facility] Comment: Interpretive Data No reference range established. Current interpretive data was last revised 2019. Protein/creatini ne ratio See Comment 0.0 - 180.0 mg/g CR [facility] Comment:Unable to Calculate Urine 07/31/2025 9:40 AM CDT 07/31/2025 10:22 AM CDT us Briana Clemens MD LAB URINE ORDERABLES Final Resul t [facility] [place] [address] * (ABNORMAL) Urinalysis reflex to microscopic and culture Urine, clean voided (06/05/2025 8:42 AM CDT) Color, ur Straw Yellow Clarity, ur Clear Clear [facility] Specific gravity, ur 1.014 1.003 - 1.030 [facility] pH, urine 7.5 [facility] Comment: Interpretive Data U rine pH is affected by diet, medications, systemic acid-base disturbances, and renal tubular function. pH may affect urinary stone formation. For example, urine pH below 6.0 may help reduce the tendency for calcium phosphate stones and pH greater than 6.0 may reduce the tendency for uric acid stone formation. Source: [facility] [employer] Current Interpretive Data was last revised on 2017 Protein, ur ql Negative Negative [facility] Glucose, ur ql Negative Negative [facility] Ketones, ur Negative Negative [facility] Bilirubin, ur Negative Negative [facility] Blood, ur Negative Negative [facility] Urobilinogen, ur <2.0 <2.0 mg/dL [facility] Nitrite, ur Negative Negative [facility] Leukocyte esterase, ur 1+(A) Negative [facility] UA reflex comment Reflex to microscopic UA will be performed. [facility] Urine, clean voided 06/05/2025 8:42 AM CDT 06/05/2025 9:47 AM CDT Briana Clemens MD LAB MICROBIOLOGY - GENERAL ORDER MARCIA Final Result Performing Organization Address [facility] de Phone Number [facility] [place] [address] * Protein / creatinine ratio, urine, random (06/05/2025 8:42 AM CDT) Protein, ur, quant 5.2 mg/dL Comment: Interpretive Data No reference range established. Current interpretive data was last revised 2019. Creatinine Ur 38.5 mg/dL [facility] Comment: Interpretive Data No reference range established. Current interpretive data was last revised 2019. Protein/creatinin e ratio 135.1 0.0 - 180.0 mg/g CR [facility] Urine 06/05/2025 8:42 AM CDT 06/05/2025 9:47 AM CDT Briana Clemens MD LAB URINE ORDERABLES Final Resul t Performing Organization Address [facility] de Phone Number [facility] [place] [address] * (ABNORMAL) Urinalysis, microscopic only (06/05/2025 8:42 AM CDT) WBC, ur 0-5 0 - 5 /HPF RBC, ur 0-2 0 - 2 /HPF [facility] Epithelial cells, squamous, ur 1-5 0 - 5 /HPF [facility] Mucous, ur Present(A) [facility] Culture Reflex Comment Reflex conditions for urine culture (WBC >10) not met. [facility] Urine, clean voided 06/05/2025 8:42 AM CDT 06/05/2025 10:47 AM CDT us Briana Clemens MD LAB URINE ORDERABLES Final Resul t [facility] [place] [address] * CBC with auto differential (06/05/2025 8:37 AM CDT) White Blood Count 4.9 3.6 - 11.2 K/uL [facility] RBC 4.40 3.63 - 4.92 M/uL [facility] Hemoglobin 13.7 11.9 - 15.5 g/dL [facility] Hematocrit 40.3 36.1 - 44.3 % [facility] MCV 91.7 80.0 - 97.6 fL [facility] MCH 31.2 26.7 - 33.7 pg [facility] MCHC 34.0 32.7 - 35.5 g/dL [facility] RBC Dist Width 13.4 12.3 - 17.0 % [facility] Platelet Count 266 140 - 440 K/uL [facility] MPV 7.3 6.8 - 10.4 fL [facility] Neutrophils % 63.2 38.7 - 74.5 % [facility] Lymphocyte % 27.4 20.0 - 54.3 % [facility] Monocytes % 6.2 4.3 - 13.5 % [facility] Eosinophils % 2.3 0.0 - 6.0 % [facility] Basophil % 0.9 0.0 - 3.0 % [facility] Absolute Neutrophil 3.1 1.8 - 6.6 K/uL [facility] Absolute Lymphocyte 1.3 0.8 - 3.3 K/uL [facility] Absolute Monocyte 0.3 0.2 - 1.2 K/uL [facility] Absolute Eosinophil 0.1 0.0 - 0.5 K/uL [facility] Absolute Basophil 0.0 0.0 - 0.2 K/uL [facility] Nucleated RBC % 0.0 0.0 - 0.4 /100 WBC [facility] Blood 06/05/2025 8:37 AM CDT 06/05/2025 9:45 AM CDT Briana Clemens MD LAB BLOOD ORDERABLES Final Resul t Performing Organization Address [facility] Phone Number [facility] * Erythrocyte sedimentation rate (06/05/2025 8:37 AM CDT) Erythrocyte Sedimentation Rate 17 <30 mm/hr [facility] Blood 06/05/2025 8:37 AM CDT 06/05/2025 9:45 AM CDT Briana Clemens MD LAB BLOOD ORDERABLES Final Resul t Performing Organization Address [facility] de Phone Number [facility] * CRP (acute phase) (06/05/2025 8:37 AM CDT) C-Reactive Protein, Acute <3.0 <5.0 mg/L [facility] Blood 06/05/2025 8:37 AM CDT 06/05/2025 9:45 AM CDT Briana Clemens MD LAB BLOOD ORDERABLES Final Resul t Performing Organization Address [facility] de Phone Number [facility] * Ortho Casting/Splinting Documentation (05/31/2025 1:16 PM CDT) Narrative Jeannie Lugo BS - 05/31/2025 1:16 PM CDT Jeannie Lugo BS 05/31/2025 1:17 PM Ortho Casting/Splinting Documentation Date/Time: 05/31/2025 1:16 PM Performed by: Jeannie Lugo BS Authorized by: Igor Nguyen MD Sensation: Normal Skin Condition: Clean, dry, and intact Khang/Sutures Removed: No Pin Pulled: No Cast Removed: Yes Cast Applied: No Overwrap: No Location: Wrist Wrist: R wrist Supplies: Cast removal only Capillary Refill: Normal Patient tolerance of procedure: Tolerated well, no immediate complications us Igor Nguyen MD IN CLINIC/BEDSIDE ORDERAB LES Final Result * GA ARTHROCENTESIS ASPIR&/INJ INTERM JT/BURS W/O US (05/31/2025 9:40 AM CDT) Narrative Igor Nguyen MD - 05/31/2025 9:40 AM CDT Igor Nguyen MD 05/31/2025 12:20 PM Medium Joint Injection: R ulnocarpal Performed by: Igor Nguyen MD Authorized by: Igor Nguyen MD Procedure Details: Location: Wrist Site: R ulnocarpal Ultrasound guidance: No Medications Right Medium Joint Injection: 1 mL lidocaine 10 mg/mL (1 %); 40 mg methylPREDNISolone acetate 40 mg/mL Today we recommended a steroid injection. Risks of the injection were explained to include infection, flare reaction, skin depigmentation, dimpling, temporary elevation in blood sugars in patients with diabetes, and possible tendon rupture damage to cartilage with repeated injections. Injection performed with an alcohol and Betadine preparation. us Igor Nguyen MD IN CLINIC/BEDSIDE ORDERAB LES Final Result * Hepatitis panel, acute Blood (12/14/2023 4:08 PM CLINICAL BIOSTATISTICS DIRECTOR) Hep A IgM Nonreactive Nonreactive [facility] Hep B core IgM Nonreactive Nonreactive [facility] Hep C Ab Nonreactive Nonreactive [facility] Comment:Antibodies to HCV no t detected. Does NOT exclude the possibility of recent exposure to HCV. Current interpretive data was last revised on 22 HepBsAg Nonreactive Nonreactive [facility] Blood 12/14/2023 4:08 PM CLINICAL BIOSTATISTICS DIRECTOR 12/14/2023 5:16 PM CLINICAL BIOSTATISTICS DIRECTOR Briana Clemens MD LAB MICROBIOLOGY - GENERAL ORDER MARCIA Final Result [facility] Department [place] [address] from Last 3 Months or Most Recently Relevant to Health Maintenance Insurance [facility] CHOICE PLUS [facility] CHOICE PLUS Care Teams Wholesale Loan Processor Relationship Specialty Start [place] [address] [address] [place] [address] PCP - General Family Medicine 07/12/23 Shane Noble MD [address] [address] Fellow Neurology 08/17/22 Reynaldo Bunch MD [address] [place] [address] Orthopedic Surgery 08/10/23
--- OUTSIDE RECORDS SUMMARY | 2025-08-30 15:07 | XMS_ITS | Encounter Summary ---
Author Organization [facility] Address [address] [place] [address] Phone Care Team Providers Care Tail Board Man Name Role Phone Shane Noble MD Unavailable [phone] Kylee Villanueva MD Primary Care Provider [phone] Reynaldo Bunch MD Unavailable [phone] Reason for Visit * Reason Onset Date Comments Autonomic testing for dizziness 08/11/2024 Encounter Details Date Type Department Care Team (Late st Contact Info) Description 08/11/2024 Telephone [facility] Neuro Muscle [address] [facility] 6th [place] [address] [place] [address] Augustina Christie CMA Autonomic testing [...] 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 [place] [address] PCP - General Family Medicine 07/12/23 Shane Noble MD [address] [id number] Fellow Neurology 08/17/22 Reynaldo Bunch MD [address] [place], [place] [id number] Orthopedic Surgery 08/10/23 documented as of this encounter
--- OUTSIDE RECORDS SUMMARY | 2025-08-30 15:37 | XMS_ITS | Encounter Summary ---
Author Organization [facility] Address [address] [place] [address] Care Team Providers Care Cold Water Machine Operator Name Role Phone Alberto Avendano MD Unavailable [phone] Kylee Villanueva MD Primary Care Provider [phone] Encounter Details Date Type Department Care Team (Late st Contact Info) Description 07/07/2023 [employer] Message Enc [facility] Medical Group Orthopedic & Sports Medicine [address] [address] [place], [facility] Provider apt Social History Tobacco Use Types [...] Assigned at Female 11/14/2024 2:54 PM COMMERCIAL INTERN Legal Sex Female 11:06 AM CDT Gender Identity Female 05/11/2025 1:56 PM CDT Sexual Orientation Not on file documented as of this encounter Plan of Treatment Upcoming Encounters Date Type Department Care Team (Latest Contact Info) Description 09/05/2025 1:40 PM COMMERCIAL INTERN Office Visit [facility] Family & Internal Medicine [address] [phone] [place] [address] [place] [address] [phone] 09/13/2025 7:40 AM COMMERCIAL INTERN Office Visit [facility] Family & Internal [address] [address] [place] [address] [place] [address] 09/17/2025 7:00 AM COMMERCIAL INTERN Office Visit [facility] Orthopedic & Sports Medicine [facility] [address] [place], [place] 7255[address] [phone] Merrill Hammond MD [address] [place] [address] 10/10/2025 1:40 PM COMMERCIAL INTERN Hospital Encounter [facility] Interventional [place] [address] [id number] Elizabeth Ryder MD Three [facility] [address] [place] [address] 10/10/2025 1:40 PM COMMERCIAL INTERN - 10/10/2025 2:00 PM COMMERCIAL INTERN Surgery [facility] Interventional [place] [address] [id number] Elizabeth Ryder MD Three [facility] [address] [place] [address] INJECTION TRIGGER POINT 12/27/2025 10:40 AM COMMERCIAL INTERN Office Visit [facility] Medical Group Multispecialty Care - [facility] [address] [facility] [address] [place] [address] Esau Hoff MD 3 [facility] [address] [place] [address] Scheduled Procedures Name Priority Associated Diagnoses Date/Ti me INJECTION TRIGGER POINT Myofascial pain 10/10/2025 1:40 PM COMMERCIAL INTERN documented as of this encounter Visit Diagnoses Not on filedocumented in this encounter Additional Health Concerns Infection Onset Date Last Indicated Resolved Time COVID-19 Rule Out 12/13/2023 12/13/2023 12/13/2023 8:54 AM COMMERCIAL INTERN COVID-19 Rule Out 08/30/2024 08/30/2024 08/30/2024 8:14 AM COMMERCIAL INTERN COVID-19 Rule Out 11/03/2024 11/03/2024 11/03/2024 10:48 AM COMMERCIAL INTERN documented as of this encounter Care Teams Cold Water Machine Operator Relationship Specialty [place] [address] [facility] [place] [address] PCP - General FAMILY PRACTICE 06/07/23 Alberto Avendano MD NEUROLOGICAL SURGERY 11/24/21 documented as of this encounter
--- OUTSIDE RECORDS SUMMARY | 2025-08-30 15:37 | XMS_ITS | Encounter Summary ---
Author Organization [facility] Address [address] [place] [address] Care Team Providers Care Supervisor Ditching Name Role Phone Shane Noble MD Unavailable [phone] Kylee Villanueva MD Primary Care Provider [phone] Reynaldo Bunch MD Unavailable [phone] Encounter Details Date Type Department Care Team (Late st Contact Info) Description 01/18/[address] 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
--- OUTSIDE RECORDS SUMMARY | 2025-08-30 15:37 | XMS_ITS | Encounter Summary ---
Author Organization [facility] Address [address] [place] [address] Care Team Providers Care Paleology Professor Name Role Phone Viv Hamm Primary Care Provider [phone] Alberto Avendano MD Unavailable [phone] Kylee Villanueva MD Primary Care Provider [phone] Encounter Details Date Type Department Care Team (Late st Contact Info) Description 09/09/2021 [employer] Message Enc [facility] Medical Group Family & Internal Medicine [facility] [address] [place] [address] [place] [id number] [place] [address] Back Issues Social History Tobacco Use [...] Sex Assigned at Female 11/14/2024 2:54 PM CORE CUTTER Legal Sex Female 11:06 AM CDT Gender Identity Female 05/11/2025 1:56 PM CDT Sexual Orientation Not on file COVID-19 Exposure Response Date Recorded In the last month, have you been in contact with someone who was confirmed or suspected to have Coronavirus / COVID-19? No / Unsure 09/12/2021 10:30 AM CORE CUTTER documented as of this encounter Plan of Treatment Upcoming Encounters Date Type Department Care Team (Latest Contact Info) Description 09/05/2025 1:40 PM CORE CUTTER Office Visit [facility] Family & Internal Medicine [address] [phone] [place] [address] [address] [place] [address] [phone] 09/13/2025 7:40 AM CORE CUTTER Office Visit [facility] Family & Internal Medicine [address] [address] [place] [address] [place] [address] [phone] 09/17/2025 7:00 AM CORE CUTTER Office Visit [facility] Orthopedic & Sports Medicine [facility] [address] [place] [address] Merrill Hammond MD [address] [place] [address] 10/10/2025 1:40 PM CORE CUTTER Hospital Encounter [facility] Interventional [place] [address] [id number] Elizabeth Ryder MD Three [facility] [address] [place] [address] 10/10/2025 1:40 PM CORE CUTTER - 10/10/2025 2:00 PM CORE CUTTER Surgery [facility] Interventional [place] [address] [id number] Elizabeth Ryder MD Three [facility] [address] [place] [address] INJECTION TRIGGER POINT 12/27/2025 10:40 AM CORE CUTTER Office Visit [facility] Medical Group Multispecialty Care - [facility] [address] [facility] [address] [place] [address] Esau Hoff MD 3 [facility] [address] [place] [address] Scheduled Procedures Name Priority Associated Diagnoses Date/Ti me INJECTION TRIGGER POINT Myofascial pain 10/10/2025 1:40 PM CORE CUTTER documented as of this encounter Visit Diagnoses Not on filedocumented in this encounter Additional Health Concerns Infection Onset Date Last Indicated Resolved Time COVID-19 Rule Out 12/13/2023 12/13/2023 12/13/2023 8:54 AM CORE CUTTER COVID-19 Rule Out 08/30/2024 08/30/2024 08/30/2024 8:14 AM CORE CUTTER COVID-19 Rule Out 11/03/2024 11/03/2024 11/03/2024 10:48 AM CORE CUTTER documented as of this encounter Care Teams Paleology Professor Relationship Specialty [place] [address] [employer], [place] [phone] PCP - General PHYSICIAN MACHINIST JOB SETTER 02/03/21 06/06/23 [place] [address] [address] [place] [address] [phone] PCP - General FAMILY PRACTICE 06/07/23 [place] [address] [place] [address] NEUROLOGICAL SURGERY 11/24/21 documented as of this encounter
--- OUTSIDE RECORDS SUMMARY | 2025-08-30 15:37 | XMS_ITS | Encounter Summary ---
Author Organization [facility] Address [address] [place] [address] Care Team Providers Care Receiving Associate Store Name Role Phone Viv Hamm Primary Care Provider [phone] Alberto Avendano MD Unavailable [phone] Kylee Villanueva MD Primary Care Provider [phone] Encounter Details Date Type Department Care Team (Late st Contact Info) Description 06/09/2021 MyChart Message [facility] Family & Internal Medicine [facility] [address] [place] [address] [place] [address] [place] [address] RE: Test Results Social History Tobacco [...] Sex Assigned at Female 11/14/2024 2:54 PM RESIDENT CARE SPEC Legal Sex Female 11:06 AM CDT Gender [...] (Latest Contact Info) Description 09/05/2025 1:40 PM RESIDENT CARE SPEC Office Visit [facility] Family & Internal Medicine [address] [address] [place] [address] [address] [place] [address] [phone] 09/13/2025 7:40 AM RESIDENT CARE SPEC Office Visit [facility] Family & Internal Medicine [address] [address] [place] [address] [place] [address] [phone] 09/17/2025 7:00 AM RESIDENT CARE SPEC Office Visit [facility] Orthopedic & Sports Medicine [facility] [address] [place] [address] Merrill Hammond MD [address] [place] [address] 10/10/2025 1:40 PM RESIDENT CARE SPEC Hospital Encounter [facility] Interventional [place] [address] [id number] Elizabeth Ryder MD Three [facility] [address] [place] [address] 10/10/2025 1:40 PM RESIDENT CARE SPEC - 10/10/2025 2:00 PM RESIDENT CARE SPEC Surgery [facility] Interventional [place] [address] [id number] Elizabeth Ryder MD Three [facility] [address] [place] [address] INJECTION TRIGGER POINT 12/27/2025 10:40 AM RESIDENT CARE SPEC [facility] Mult[facility]ialty Care - [facility] 3 [facility] [address] [place] [address] Esau Hoff MD 3 [facility] [address] [place] [address] Scheduled Procedures Name Priority Associated Diagnoses Date/Ti me INJECTION TRIGGER POINT Myofascial pain 10/10/2025 1:40 PM RESIDENT CARE SPEC documented as of this encounter Visit Diagnoses Not on filedocumented in this encounter Additional Health Concerns Infection Onset Date Last Indicated Resolved Time COVID-19 Rule Out 12/13/2023 12/13/2023 12/13/2023 8:54 AM RESIDENT CARE SPEC COVID-19 Rule Out 08/30/2024 08/30/2024 08/30/2024 8:14 AM RESIDENT CARE SPEC COVID-19 Rule Out 11/03/2024 11/03/2024 11/03/2024 10:48 AM RESIDENT CARE SPEC documented as of this encounter Care Teams Receiving Associate Store Relationship Specialty [place] [address] [place] [address] PCP - General PHYSICIAN CIVIL DEFENSE DIRECTOR 02/03/21 06/06/23 [place] [address] [address] [place], [place] [phone] PCP - General FAMILY PRACTICE 06/07/23 [place] [address] [place] [address] NEUROLOGICAL SURGERY 11/24/21 documented as of this encounter
--- OUTSIDE RECORDS SUMMARY | 2025-08-30 15:37 | XMS_ITS | Encounter Summary ---
Author Organization [facility] Address [address] [place] [address] Care Team Providers Care Mechanical Apprentice Name Role Phone Viv Hamm Primary Care Provider [phone] Alberto Avendano MD Unavailable [phone] Kylee Villanueva MD Primary Care Provider [phone] Encounter Details Date Type Department Care Team (Late st Contact Info) Description 04/08/2023 [employer] Message Enc [facility] Interventional Pain [place] [address] [phone] Concha Albert NP 3 [facility] [address] [place] [address] -[phone] (Work) Question about steroid injection [...] Sex Assigned at Female 11/14/2024 2:54 PM DICTIONARY EDITOR Legal Sex Female 11:06 AM CDT Gender [...] (Latest Contact Info) Description 09/05/2025 1:40 PM DICTIONARY EDITOR Office Visit [facility] Family & Internal Medicine [address] [address] [place] [address] [address] [place] [address] 09/13/2025 7:40 AM DICTIONARY EDITOR Office Visit [facility] Family & Internal Medicine [address] [address] [place] [address] [address] [place] [address] 09/17/2025 7:00 AM DICTIONARY EDITOR Office Visit [facility] Orthopedic & Sports Medicine [facility] [address] [place] [address] Merrill Hammond MD [address] [place] [address] 10/10/2025 1:40 PM DICTIONARY EDITOR Hospital Encounter [facility] Interventional Pain Management [place] [address] [id number] Elizabeth Ryder MD Three [facility] [address] [place] [address] 10/10/2025 1:40 PM DICTIONARY EDITOR - 10/10/2025 2:00 PM DICTIONARY EDITOR Surgery [facility] Interventional Pain [place] [address] [id number] Elizabeth Ryder MD Three [facility] [address] [place] [address] INJECTION TRIGGER POINT 12/27/2025 10:40 AM DICTIONARY EDITOR Office Visit [facility] Medical Group Multispecialty Care - [facility] 3 [facility] [address] [place] [address] Esau Hoff MD 3 [facility] [address] [place] [address] Scheduled Procedures Name Priority Associated Diagnoses Date/Ti me INJECTION TRIGGER POINT Myofascial pain 10/10/2025 1:40 PM DICTIONARY EDITOR documented as of this encounter Visit Diagnoses Not on filedocumented in this encounter Additional Health Concerns Infection Onset Date Last Indicated Resolved Time COVID-19 Rule Out 12/13/2023 12/13/2023 12/13/2023 8:54 AM DICTIONARY EDITOR COVID-19 Rule Out 08/30/2024 08/30/2024 08/30/2024 8:14 AM DICTIONARY EDITOR COVID-19 Rule Out 11/03/2024 11/03/2024 11/03/2024 10:48 AM DICTIONARY EDITOR documented as of this encounter Care Teams Mechanical Apprentice Relationship Specialty [place] [address] [facility] [place] [address] PCP - General PHYSICIAN TISSUE RECOVERY TECHNICIAN 02/03/21 06/06/23 [place] [address] [address] [place] [address] PCP - General FAMILY PRACTICE 06/07/23 [place] [address] [place] [address] NEUROLOGICAL SURGERY 11/24/21 documented as of this encounter
--- OUTSIDE RECORDS SUMMARY | 2025-08-30 15:37 | XMS_ITS | Encounter Summary ---
Author Organization [facility] Address [address] [place] [address] Care Team Providers Care Freight Delivery Driver Name Role Phone Viv Hamm Primary Care Provider [phone] Alberto Avendano MD Unavailable [phone] Kylee Villanueva MD Primary Care Provider [phone] Encounter Details Date Type Department Care Team (Late st Contact Info) Description 11/24/2021 MyChart Message Enc [facility] Medical Group Multispecialty Care - [facility] [address] [facility] [address] [place] [address] Shane Noble MD [address] [place] [address] Information Social History Tobacco Use Types Packs/Day [...] Sex Assigned at Female 11/14/2024 2:54 PM DISTRICT ADVISER Legal Sex Female 11:06 AM CDT Gender Identity Female 05/11/2025 1:56 PM CDT Sexual Orientation Not on file COVID-19 Exposure Response Date Recorded In the last month, have you been in contact with someone who was confirmed or suspected to have Coronavirus / COVID-19? No / Unsure 11/10/2021 12:11 PM DISTRICT ADVISER documented as of this encounter Plan of Treatment Upcoming Encounters Date Type Department Care Team (Latest Contact Info) Description 09/05/2025 1:40 PM DISTRICT ADVISER Office Visit [facility] Family & Internal Medicine [address] [phone] [place] [address] [facility] [place] [address] [phone] 09/13/2025 7:40 AM DISTRICT ADVISER Office Visit [facility] Family & Internal Medicine [address] [phone] [place] [address] [facility] [place] [address] [phone] 09/17/2025 7:00 AM DISTRICT ADVISER Office Visit [facility] Orthopedic & Sports Medicine [facility] [address] [place] [address] Merrill Hammond MD [address] [place] [address] 10/10/2025 1:40 PM DISTRICT ADVISER Hospital Encounter [facility] Interventional [place] [address] [phone] Elizabeth Ryder MD Three [facility] [address] [place], [place] [phone] 10/10/2025 1:40 PM DISTRICT ADVISER - 10/10/2025 2:00 PM DISTRICT ADVISER Surgery [facility] Interventional Pain Management Center [facility] [address] [id number] Elizabeth Ryder MD Three [facility] [address] [place] [address] INJECTION TRIGGER POINT 12/27/2025 10:40 AM DISTRICT ADVISER Office Visit [facility] Medical Group Multispecialty Care - [facility] [address] [facility] [address] [place] [address] Esau Hoff MD 3 [facility] [address] [place] [address] Scheduled Procedures Name Priority Associated Diagnoses Date/Ti me INJECTION TRIGGER POINT Myofascial pain 10/10/2025 1:40 PM DISTRICT ADVISER documented as of this encounter Visit Diagnoses Not on filedocumented in this encounter Additional Health Concerns Infection Onset Date Last Indicated Resolved Time COVID-19 Rule Out 12/13/2023 12/13/2023 12/13/2023 8:54 AM DISTRICT ADVISER COVID-19 Rule Out 08/30/2024 08/30/2024 08/30/2024 8:14 AM DISTRICT ADVISER COVID-19 Rule Out 11/03/2024 11/03/2024 11/03/2024 10:48 AM DISTRICT ADVISER documented as of this encounter Care Teams Freight Delivery Driver Relationship Specialty [place] [address] [place] [address] PCP - General PHYSICIAN BUILDINGS AND GROUNDS SUPERVISOR 02/03/21 06/06/23 [place] [address] [address] [place] [address] PCP - General FAMILY PRACTICE 06/07/23 [place] [address] [place] [address] NEUROLOGICAL SURGERY 11/24/21 documented as of this encounter
--- OUTSIDE RECORDS SUMMARY | 2025-08-30 15:37 | XMS_ITS | Encounter Summary ---
Author Organization [facility] Address [address] [place] [address] Care Team Providers Care Kosher Dietary Service Supervisor Name Role Phone Alberto Avendano MD Unavailable [phone] Kylee Villanueva MD Primary Care Provider [phone] Encounter Details Date Type Department Care Team (Late st Contact Info) Description 12/09/2023 Flud Message Enc [facility] Medical Group Family & Internal Medicine [address] [address] [employer] Provider Mammogram result Social History Tobacco Use [...] Sex Assigned at Female 11/14/2024 2:54 PM SUPERVISOR ELECTRIC MOTOR TESTING Legal Sex Female 11:06 AM CDT Gender Identity Female 05/11/2025 1:56 PM CDT Sexual Orientation Not on file documented as of this encounter Plan of Treatment Upcoming Encounters Date Type Department Care Team (Latest Contact Info) Description 09/05/2025 1:40 PM SUPERVISOR ELECTRIC MOTOR TESTING Office Visit [facility] Family & Internal Medicine [address] [phone] [place] [address] [place] [address] [phone] 09/13/2025 7:40 AM SUPERVISOR ELECTRIC MOTOR TESTING Office Visit [facility] Family & Internal [address] [address] [place] [address] [facility] [address] [place] [address] 09/17/2025 7:00 AM SUPERVISOR ELECTRIC MOTOR TESTING Office Visit [facility] Orthopedic & Sports Medicine [facility] [address] [place], [place] 8913[address] [phone] Merrill Hammond MD [address] [place] [address] 10/10/2025 1:40 PM SUPERVISOR ELECTRIC MOTOR TESTING Hospital Encounter [facility] Interventional [place] [address] [phone] Elizabeth Ryder MD Three [facility] [address] [place] [address] 10/10/2025 1:40 PM SUPERVISOR ELECTRIC MOTOR TESTING - 10/10/2025 2:00 PM SUPERVISOR ELECTRIC MOTOR TESTING Surgery [facility] Interventional [place] [address] [id number] Elizabeth Ryder MD Three [facility] [address] [place] [address] INJECTION TRIGGER POINT 12/27/2025 10:40 AM SUPERVISOR ELECTRIC MOTOR TESTING Office Visit [facility] Medical Group Multispecialty Care - [facility] 3 [facility] [address] [place] [address] Esau Hoff MD 3 [facility] [address] [place] [address] Scheduled Procedures Name Priority Associated Diagnoses Date/Ti me INJECTION TRIGGER POINT Myofascial pain 10/10/2025 1:40 PM SUPERVISOR ELECTRIC MOTOR TESTING documented as of this encounter Visit Diagnoses Not on filedocumented in this encounter Additional Health Concerns Infection Onset Date Last Indicated Resolved Time COVID-19 Rule Out 12/13/2023 12/13/2023 12/13/2023 8:54 AM SUPERVISOR ELECTRIC MOTOR TESTING COVID-19 Rule Out 08/30/2024 08/30/2024 08/30/2024 8:14 AM SUPERVISOR ELECTRIC MOTOR TESTING COVID-19 Rule Out 11/03/2024 11/03/2024 11/03/2024 10:48 AM SUPERVISOR ELECTRIC MOTOR TESTING documented as of this encounter Care Teams Kosher Dietary Service Supervisor Relationship Specialty Start [place] [address] [address] [place] [address] PCP - General FAMILY PRACTICE 06/07/23 Alberto Avendano MD NEUROLOGICAL SURGERY 11/24/21 documented as of this encounter
--- OUTSIDE RECORDS SUMMARY | 2025-08-30 15:37 | XMS_ITS | Encounter Summary ---
Author Organization [facility] Address [address] [place] [address] Care Team Providers Care Foreclosure Home Inspector Name Role Phone Viv Hamm Primary Care Provider [phone] Alberto Avendano MD Unavailable [phone] Kylee Villanueva MD Primary Care Provider [phone] Reason for Referral * Surgical (Routine) - Closed Specialty Diagnoses / Procedures Referred By Ramonita franco Referred To Contact Diagnoses Lumbar radiculopathy Procedures Case request operating room: INJECTION EPIDURAL TRANSFORAMINAL L6-S1 Concha Albert NP 3 [facility] [address] [place] [address] Phone: tel: [phone] fax: Referral ID Status Reason Start Date Expiration Date Visits Re quested Visits Authorized [id number] Closed 10/06/2022 10/06/2023 1 1 FACTURERS REPRESENTATIVE Encounter Details Date Type Department Care Team (Late st Contact Info) Description 10/06/[address] [facility] Interventional Pain Management Center [place], [place] [id number] Concha Albert NP 3 [facility] [address] [place] [address] [phone] (Work) Social History Tobacco Use Types Packs/Day [...] Sex Assigned at Female 11/14/2024 2:54 PM MANUFACTURERS REPRESENTATIVE Legal Sex Female 11:06 AM CDT Gender Identity Female 05/11/2025 1:56 PM CDT Sexual Orientation Not on file COVID-19 Exposure Response Date Recorded In the last 10 days, have yo u been in contact with someone who was confirmed or suspected to have Coronavirus/COVID-19? No / Unsure 10/06/2022 7:22 AM MANUFACTURERS REPRESENTATIVE documented as of this encounter Functional Status * Calculated C-SSRS Risk Score (Lifetime/Recent) Answer Date of Assessment Author Status No Risk Indicated 10/06/2022 7:33 AM Monica López RN Active * [place] Suicide Severity Rating Scale (Screener/Recent Self-Report) Question Answer Date of Assessment Author Status 1. Wish to be (Past 1 Month) No 10/06/2022 7:33 AM Allyson López RN Ac tive 2. Non-Specific Active Suicidal Thoughts (Past 1 Month) No 10/06/2022 7:33 AM Allyson López RN Ac tive 6. Suicidal Behavior (Lifetime) No 10/06/2022 7:33 AM MANUFACTURERS REPRESENTATIVE Allyson Vázquez RN Ac tive documented as of this encounter Plan of Treatment Upcoming Encounters Date Type Department Care Team (Latest Contact Info) Description 09/05/2025 1:40 PM MANUFACTURERS REPRESENTATIVE Office Visit [facility] Family & Internal Medicine [facility] [address] [place] [phone] [place] [address] [place] [address] [phone] 09/13/2025 7:40 AM MANUFACTURERS REPRESENTATIVE Office Visit [facility] Family & Internal [facility] [address] [place] [address] [place] [address] [place] [address] 09/17/2025 7:00 AM MANUFACTURERS REPRESENTATIVE Office Visit [facility] Orthopedic & Sports Medicine [facility] [address] [place] [address] Merrill Hammond MD 670 [place] [address] 10/10/2025 1:40 PM MANUFACTURERS REPRESENTATIVE Hospital Encounter [facility] Interventional [place] [address] [id number] Elizabeth Ryder MD Three [facility] [address] [place] [address] 10/10/2025 1:40 PM MANUFACTURERS REPRESENTATIVE - 10/10/2025 2:00 PM MANUFACTURERS REPRESENTATIVE Surgery [facility] [place] [address] [id number] Elizabeth Ryder MD Three [facility] [address] [place] [address] INJECTION TRIGGER POINT 12/27/2025 10:40 AM MANUFACTURERS REPRESENTATIVE Office Visit [facility] Multispecialty Care - [facility] 3 [facility] [address] [place] [address] Esau Hoff MD 3 [facility] [address] [place] [address] Scheduled Orders Name Type Priority Associated Diagnoses Orde r Schedule Case request operating room: INJECTION EPIDURAL TRANSFORAMINAL L6-S1 Case Request Routine Lumbar radiculopathy Once for 1 Occurrences starting 10/06/2022 until 10/06/2022 Scheduled Procedures Name Priority Associated Diagnoses Date/Ti me INJECTION TRIGGER POINT Myofascial pain 10/10/2025 1:40 PM MANUFACTURERS REPRESENTATIVE documented as of this encounter Visit Diagnoses Diagnosis Lumbar radiculopathy- Primary Thoracic or lumbosacral neuritis or radiculitis, unspecified Myofascial pain Mylagia and myositis, unspecified documented in this encounter Additional Health Concerns Infection Onset Date Last Indicated Resolved Time COVID-19 Rule Out 12/13/2023 12/13/2023 12/13/2023 8:54 AM MANUFACTURERS REPRESENTATIVE COVID-19 Rule Out 08/30/2024 08/30/2024 08/30/2024 8:14 AM MANUFACTURERS REPRESENTATIVE COVID-19 Rule Out 11/03/2024 11/03/2024 11/03/2024 10:48 AM MANUFACTURERS REPRESENTATIVE documented as of this encounter Care Teams Foreclosure Home Inspector Relationship Specialty [place] [address] [place] [address] PCP - General PHYSICIAN WILDLIFE PROTECTOR 02/03/21 06/06/23 [place] [address] [place] [address] PCP - General FAMILY PRACTICE 06/07/23 [place] [address] [place] [address] NEUROLOGICAL SURGERY 11/24/21 documented as of this encounter
--- OUTSIDE RECORDS SUMMARY | 2025-08-30 15:37 | XMS_ITS | Encounter Summary ---
Author Organization [facility] Address [address] [place] [address] Care Team Providers Care Fiction And Nonfiction Writer Prose Name Role Phone Viv Hamm Primary Care Provider [phone] Alberto Avendano MD Unavailable [phone] Kylee Villanueva MD Primary Care Provider [phone] Encounter Details Date Type Department Care Team (Late st Contact Info) Description 07/01/2021 MyChart Message Enc [facility] Medical Group Family & Internal Medicine [facility] [address] [place] [address] Viv Hamm [place] [id number] [place] [address] RE: Test Results Social History Tobacco [...] Sex Assigned at Female 11/14/2024 2:54 PM NETWORK PROGRAMMER Legal Sex Female 11:06 AM CDT Gender [...] (Latest Contact Info) Description 09/05/2025 1:40 PM NETWORK PROGRAMMER Office Visit [facility] Family & Internal Medicine [address] [address] [place] [address] [address] [place] [address] [phone] 09/13/2025 7:40 AM NETWORK PROGRAMMER Office Visit [facility] Family & Internal Medicine [address] [address] [place] [address] [place] [address] [phone] 09/17/2025 7:00 AM NETWORK PROGRAMMER Office Visit [facility] Orthopedic & Sports Medicine [facility] [address] [place] [address] Merrill Hammond MD 670 [place] [address] 10/10/2025 1:40 PM NETWORK PROGRAMMER Hospital Encounter [facility] Interventional Pain [place] [address] [id number] Elizabeth Ryder MD Three [facility] [address] [place] [address] 10/10/2025 1:40 PM NETWORK PROGRAMMER - 10/10/2025 2:00 PM NETWORK PROGRAMMER Surgery [facility] Interventional Pain [place] [address] [id number] Elizabeth Ryder MD Three [facility] [address] [place] [address] INJECTION TRIGGER POINT 12/27/2025 10:40 AM NETWORK PROGRAMMER Office Visit [facility] Medical Group Multispecialty Care - [facility] 3 [facility] [address] [place] [address] Esau Hoff MD 3 [facility] [address] [place] [address] Scheduled Procedures Name Priority Associated Diagnoses Date/Ti me INJECTION TRIGGER POINT Myofascial pain 10/10/2025 1:40 PM NETWORK PROGRAMMER documented as of this encounter Visit Diagnoses Not on filedocumented in this encounter Additional Health Concerns Infection Onset Date Last Indicated Resolved Time COVID-19 Rule Out 12/13/2023 12/13/2023 12/13/2023 8:54 AM NETWORK PROGRAMMER COVID-19 Rule Out 08/30/2024 08/30/2024 08/30/2024 8:14 AM NETWORK PROGRAMMER COVID-19 Rule Out 11/03/2024 11/03/2024 11/03/2024 10:48 AM NETWORK PROGRAMMER documented as of this encounter Care Teams Fiction And Nonfiction Writer Prose Relationship Specialty [place] [address] [place] [address] PCP - General PHYSICIAN TYPE COPYIST 02/03/21 06/06/23 [place] [address] [place], [place] [id number] PCP - General FAMILY PRACTICE 06/07/23 [place] [address] [place] [address] NEUROLOGICAL SURGERY 11/24/21 documented as of this encounter
--- OUTSIDE RECORDS SUMMARY | 2025-08-30 15:37 | XMS_ITS | Encounter Summary ---
Author Organization [facility] Address [facility] [place] [address] Care Team Providers Care Fisheries Management Biologist Name Role Phone Viv Hamm Primary Care Provider [phone] Alberto Avendano MD Unavailable [phone] Kylee Villanueva MD Primary Care Provider [phone] Encounter Details Date Type Department Care Team (Latest Contact Info) Description 03/02/2021 MyChart Message Enc [facility] Medical Group Multispecialty Care - [facility] 3 [facility] [address] [place] [address] Reynaldo Bunch MD [address] [place] [address] [phone] RE: Test Results Social History Tobacco Use [...] Sex Assigned at Female 11/14/2024 2:54 PM AUTOMATIC SPLICING MACHINE OPERATOR Legal Sex Female 11:06 AM [...] (Latest Contact Info) Description 09/05/2025 1:40 PM AUTOMATIC SPLICING MACHINE OPERATOR Office Visit [facility] Family & Internal Medicine [address] [address] [place] [address] [facility] [address] [place] [address] [phone] 09/13/2025 7:40 AM AUTOMATIC SPLICING MACHINE OPERATOR Office Visit [facility] Family & Internal Medicine [address] [address] [place] [address] [employer] [address] [place] [address] [phone] 09/17/2025 7:00 AM AUTOMATIC SPLICING MACHINE OPERATOR Office Visit [facility] Orthopedic & Sports Medicine [facility] [address] [place] [address] Merrill Hammond MD [address] [place] [address] 10/10/2025 1:40 PM AUTOMATIC SPLICING MACHINE OPERATOR Hospital Encounter [facility] Interventional Pain [place] [address] [id number] Elizabeth Ryder MD Three [facility] [address] [place], [place] [phone] 10/10/2025 1:40 PM AUTOMATIC SPLICING MACHINE OPERATOR - 10/10/2025 2:00 PM AUTOMATIC SPLICING MACHINE OPERATOR Surgery [facility] Interventional Pain [place] [address] [id number] Elizabeth Ryder MD Three [facility] [address] [place] [address] INJECTION TRIGGER POINT 12/27/2025 10:40 AM AUTOMATIC SPLICING MACHINE OPERATOR Office Visit [facility] Medical Group Multispecialty Care - [facility] 3 [facility] [address] [place] [address] Esau Hoff MD 3 [facility] [address] [place] [address] Scheduled Procedures Name Priority Associated Diagnoses Date/Ti me INJECTION TRIGGER POINT Myofascial pain 10/10/2025 1:40 PM AUTOMATIC SPLICING MACHINE OPERATOR documented as of this encounter Visit Diagnoses Not on filedocumented in this encounter Additional Health Concerns Infection Onset Date Last Indicated Resolved Time COVID-19 Rule Out 12/13/2023 12/13/2023 12/13/2023 8:54 AM AUTOMATIC SPLICING MACHINE OPERATOR COVID-19 Rule Out 08/30/2024 08/30/2024 08/30/2024 8:14 AM AUTOMATIC SPLICING MACHINE OPERATOR COVID-19 Rule Out 11/03/2024 11/03/2024 11/03/2024 10:48 AM AUTOMATIC SPLICING MACHINE OPERATOR documented as of this encounter Care Teams Fisheries Management Biologist Relationship Specialty [place] [address] [place] [address] PCP - General PHYSICIAN MECHANICAL OXIDIZER 02/03/21 06/06/23 [place] [address] [address] [place] [address] PCP - General FAMILY PRACTICE 06/07/23 [place] [address] [place] [address] NEUROLOGICAL SURGERY 11/24/21 documented as of this encounter
--- OUTSIDE RECORDS SUMMARY | 2025-08-30 15:37 | XMS_ITS | Encounter Summary ---
Author Organization [facility] Address [facility] [place] [address] Care Team Providers Care Supervisor Sanding Name Role Phone Viv Hamm Primary Care Provider [phone] Alberto Avendano MD Unavailable [phone] Kylee Villanueva MD Primary Care Provider [phone] Encounter Details Date Type Department Care Team (Latest Contact Info) Description 02/19/2023 MyChart Message Enc [facility] Medical Group Multispecialty Care - [facility] [address] [facility] [address] [place] [address] Shane Noble MD 1 [place] [address] Lumbar MRI denied by insurance Social History [...] Sex Assigned at Female 11/14/2024 2:54 PM PIECE DYEING MACHINE TENDER Legal Sex Female 11:06 AM CDT Gender Identity Female 05/11/2025 1:56 PM CDT Sexual Orientation Not on file COVID-19 Exposure Response Date Recorded In the last 10 days, have mark anthony ga been in contact with someone who was [...] (Latest Contact Info) Description 09/05/2025 1:40 PM PIECE DYEING MACHINE TENDER Office Visit [facility] Family & Internal Medicine [address] [address] [place] [address] [facility] [address]. [address] [place] [address] [phone] 09/13/2025 7:40 AM PIECE DYEING MACHINE TENDER Office Visit [facility] Family & Internal Medicine [address] [address] [place] [address] [facility] [place] [address] 09/17/2025 7:00 AM PIECE DYEING MACHINE TENDER Office Visit [facility] [address] Merrill Hammond MD 6[address] [place] [address] 10/10/2025 1:40 PM PIECE DYEING MACHINE TENDER Hospital Encounter [facility] Interventional Pain Management [place] [address] [id number] Elizabeth Ryder MD Three [facility] [address] [place] [address] 10/10/2025 1:40 PM PIECE DYEING MACHINE TENDER - 10/10/2025 2:00 PM PIECE DYEING MACHINE TENDER Surgery [facility] Interventional Pain [place] [address] [id number] Elizabeth Ryder MD Three [facility] [address] [place] [address] INJECTION TRIGGER POINT 12/27/2025 10:40 AM PIECE DYEING MACHINE TENDER Office Visit [facility] Medical Group Multispecialty Care - [facility] 3 [facility] [address] [place] [address] Esau Hoff MD 3 [facility] [address] [place] [address] Scheduled Procedures Name Priority Associated Diagnoses Date/Ti me INJECTION TRIGGER POINT Myofascial pain 10/10/2025 1:40 PM PIECE DYEING MACHINE TENDER documented as of this encounter Visit Diagnoses Not on filedocumented in this encounter Additional Health Concerns Infection Onset Date Last Indicated Resolved Time COVID-19 Rule Out 12/13/2023 12/13/2023 12/13/2023 8:54 AM PIECE DYEING MACHINE TENDER COVID-19 Rule Out 08/30/2024 08/30/2024 08/30/2024 8:14 AM PIECE DYEING MACHINE TENDER COVID-19 Rule Out 11/03/2024 11/03/2024 11/03/2024 10:48 AM PIECE DYEING MACHINE TENDER documented as of this encounter Care Teams Supervisor Sanding Relationship Specialty [place] [address] [place] [address] PCP - General PHYSICIAN PROJECT MANAGEMENT INSTRUCTOR 02/03/21 06/06/23 [place] [address] [address] [place] [address] PCP - General FAMILY PRACTICE 06/07/23 [place] [address] [facility] [place] [address] NEUROLOGICAL SURGERY 11/24/21 documented as of this encounter
--- OUTSIDE RECORDS SUMMARY | 2025-08-30 15:37 | XMS_ITS | Encounter Summary ---
Author Organization [facility] Address [address] [place] [address] Care Team Providers Care Hand Coremaker Name Role Phone Viv Hamm Primary Care Provider [phone] Alberto Avendano MD Unavailable [phone] Kylee Villanueva MD Primary Care Provider [phone] Encounter Details Date Type Department Care Team (Late st Contact Info) Description 04/21/2023 MyChart Message Enc [facility] Medical Group - [facility] [address] [place], [place] [phone] [employer], [facility] Provider Air Quality Message Social History Tobacco [...] Sex Assigned at Female 11/14/2024 2:54 PM CHICKEN VACCINATOR Legal Sex Female 11:06 AM CDT Gender [...] AM CDT Elroy Knight RN Active * [place] Suicide Severity Rating Scale (Screener/Recent Self-Report) Question Answer Date of Assessment Author Status 1. Wish to be (Past 1 Month) No 04/23/2023 11:43 AM LENORAT Laila Knight RN Act martha 2. Non-Specific Active Suicidal Thoughts (Past 1 Month) No 04/23/2023 11:43 AM LENORAT Laila Knight RN Act martha 6. Suicidal Behavior (Lifetime) No 04/23/2023 11:43 AM CDT Laila Knight RN Act martha documented as of this encounter Plan of Treatment Upcoming Encounters Date Type Department Care Team (Latest Contact Info) Description 09/05/2025 1:40 PM CHICKEN VACCINATOR Office Visit [facility] Family & Internal Medicine [address] [address] [place] [address] [employer] [place] [address] 09/13/2025 7:40 AM CHICKEN VACCINATOR Office Visit [facility] Family & Internal Medicine [address] [address] [place] [address] [employer] [place] [address] 09/17/2025 7:00 AM CHICKEN VACCINATOR Office Visit [facility] Orthopedic & Sports Medicine - [place] [address] [place] [address] Merrill Hammond MD [address] [place] [address] 10/10/2025 1:40 PM CHICKEN VACCINATOR Hospital Encounter [facility] Interventional Pain [place] [address] [id number] Elizabeth Ryder MD Three [facility] [address] [place] [address] 10/10/2025 1:40 PM CHICKEN VACCINATOR - 10/10/2025 2:00 PM CHICKEN VACCINATOR Surgery [facility] Interventional Pain [place] [address] [id number] Elizabeth Ryder MD Three [facility] [address] [place] [address] INJECTION TRIGGER POINT 12/27/2025 10:40 AM CHICKEN VACCINATOR Office Visit [facility] Multispecialty Care - [facility] 3 [facility] [address] [place] [address] Esau Hoff MD 3 [facility] [address] [place] [address] Scheduled Procedures Name Priority Associated Diagnoses Date/Ti me INJECTION TRIGGER POINT Myofascial pain 10/10/2025 1:40 PM CHICKEN VACCINATOR documented as of this encounter Visit Diagnoses Not on filedocumented in this encounter Additional Health Concerns Infection Onset Date Last Indicated Resolved Time COVID-19 Rule Out 12/13/2023 12/13/2023 12/13/2023 8:54 AM CHICKEN VACCINATOR COVID-19 Rule Out 08/30/2024 08/30/2024 08/30/2024 8:14 AM CHICKEN VACCINATOR COVID-19 Rule Out 11/03/2024 11/03/2024 11/03/2024 10:48 AM CHICKEN VACCINATOR documented as of this encounter Care Teams Hand Coremaker Relationship Specialty [place] [address] [place] [address] PCP - General PHYSICIAN SECURITIES COMPLIANCE EXAMINER 02/03/21 06/06/23 [place] [address] [address] [place] [address] PCP - General FAMILY PRACTICE 06/07/23 [place] [address] [place] [address] NEUROLOGICAL SURGERY 11/24/21 documented as of this encounter
--- OUTSIDE RECORDS SUMMARY | 2025-08-30 15:37 | XMS_ITS | Encounter Summary ---
Author Organization [facility] Address [address] [place] [address] Care Team Providers Care Senior Sql Server Dba Name Role Phone Viv Hamm Primary Care Provider [phone] Alberto Avendano MD Unavailable [phone] Kylee Villanueva MD Primary Care Provider [phone] Encounter Details Date Type Department Care Team (Late st Contact Info) Description 01/09/2022 MyChart Message Enc [facility] Medical Group Family & Internal Medicine [facility] [address] [place] [address] Viv Hamm [place] [id number] [place] [address] Appt Social History Tobacco Use Types [...] Sex Assigned at Female 11/14/2024 2:54 PM GAMBLING MONITOR Legal Sex Female 11:06 AM CDT Gender [...] (Latest Contact Info) Description 09/05/2025 1:40 PM GAMBLING MONITOR Office Visit [facility] Family & Internal Medicine [address] [address] [place] [address] [place] [address] 09/13/2025 7:40 AM GAMBLING MONITOR Office Visit [facility] Family & Internal Medicine [address] [phone] [place] [address] [place] [address] 09/17/2025 7:00 AM GAMBLING MONITOR Office Visit [facility] Orthopedic & Sports Medicine [facility] [address] [place] [address] Merrill Hammond MD [address] [place] [address] 10/10/2025 1:40 PM GAMBLING MONITOR Hospital Encounter [facility] Interventional Pain Management Center ONE [place] [place] [address] [id number] Elizabeth Ryder MD Three [facility] [address] [place] [address] 10/10/2025 1:40 PM GAMBLING MONITOR - 10/10/2025 2:00 PM GAMBLING MONITOR Surgery [facility] Interventional Pain [place] [address] [id number] Elizabeth Ryder MD Three [facility] [address] [place] [address] INJECTION TRIGGER POINT 12/27/2025 10:40 AM GAMBLING MONITOR Office Visit [facility] Medical Group Multispecialty Care - [facility] 3 [facility], [address] [place] [address] Esau Hoff MD 3 [facility] [address] [place] [address] Scheduled Procedures Name Priority Associated Diagnoses Date/Ti me INJECTION TRIGGER POINT Myofascial pain 10/10/2025 1:40 PM GAMBLING MONITOR documented as of this encounter Visit Diagnoses Not on filedocumented in this encounter Additional Health Concerns Infection Onset Date Last Indicated Resolved Time COVID-19 Rule Out 12/13/2023 12/13/2023 12/13/2023 8:54 AM GAMBLING MONITOR COVID-19 Rule Out 08/30/2024 08/30/2024 08/30/2024 8:14 AM GAMBLING MONITOR COVID-19 Rule Out 11/03/2024 11/03/2024 11/03/2024 10:48 AM GAMBLING MONITOR documented as of this encounter Care Teams Senior Sql Server Dba Relationship Specialty [place] [address] [place] [address] PCP - General PHYSICIAN STEEL HEATER 02/03/21 06/06/23 [place] [address] [address] [place] [address] PCP - General FAMILY PRACTICE 06/07/23 [place] [address] [place] [address] NEUROLOGICAL SURGERY 11/24/21 documented as of this encounter
--- OUTSIDE RECORDS SUMMARY | 2025-08-30 15:37 | XMS_ITS | Encounter Summary ---
Author Organization [facility] Address [address] [place] [address] Care Team Providers Care Contract Clerk Automobile Name Role Phone Viv Hamm Primary Care Provider [phone] Alberto Avendano MD Unavailable [phone] Kylee Villanueva MD Primary Care Provider [phone] Encounter Details Date Type Department Care Team (Late st Contact Info) Description 06/04/2023 [employer] Message Enc [facility] Interventional [place] [address] [id number] Concha Albert NP 3 [facility] [address] [place] [address] [phone] (Work) Imaging Request - Update [...] Sex Assigned at Female 11/14/2024 2:54 PM HOOK AND EYE ATTACHER Legal Sex Female 11:06 AM CDT Gender Identity Female 05/11/2025 1:56 PM CDT Sexual Orientation Not on file documented as of this encounter Plan of Treatment Upcoming Encounters Date Type Department Care Team (Latest Contact Info) Description 09/05/2025 1:40 PM HOOK AND EYE ATTACHER Office Visit [facility] Family & Internal Medicine [address] [address] [place] [address] [employer] [place] [address] [phone] 09/13/2025 7:40 AM HOOK AND EYE ATTACHER Office Visit [facility] Family & Internal Medicine [address] [address] [place] [address] [employer] [place] [address] [phone] 09/17/2025 7:00 AM HOOK AND EYE ATTACHER Office Visit [facility] Orthopedic & Sports Medicine [facility] [address] [place] [address] Merrill Hammond MD [address] [place] [address] 10/10/2025 1:40 PM HOOK AND EYE ATTACHER Hospital Encounter [facility] Interventional Pain [place] [address] [id number] Elizabeth Ryder MD Three [facility] [address] [place], [place] [phone] 10/10/2025 1:40 PM HOOK AND EYE ATTACHER - 10/10/2025 2:00 PM HOOK AND EYE ATTACHER Surgery [facility] Interventional Pain Management Center ONE [facility] [place] [address] [id number] Elizabeth Ryder MD Three [facility] [address] [place] [address] INJECTION TRIGGER POINT 12/27/2025 10:40 AM HOOK AND EYE ATTACHER Office Visit [facility] Medical Group Multispecialty Care - [facility] [address] [facility] [place] [address] Esau Hoff MD 3 [facility] [address] [place] [address] Scheduled Procedures Name Priority Associated Diagnoses Date/Ti me INJECTION TRIGGER POINT Myofascial pain 10/10/2025 1:40 PM HOOK AND EYE ATTACHER documented as of this encounter Visit Diagnoses Not on filedocumented in this encounter Additional Health Concerns Infection Onset Date Last Indicated Resolved Time COVID-19 Rule Out 12/13/2023 12/13/2023 12/13/2023 8:54 AM HOOK AND EYE ATTACHER COVID-19 Rule Out 08/30/2024 08/30/2024 08/30/2024 8:14 AM HOOK AND EYE ATTACHER COVID-19 Rule Out 11/03/2024 11/03/2024 11/03/2024 10:48 AM HOOK AND EYE ATTACHER documented as of this encounter Care Teams Contract Clerk Automobile Relationship Specialty [place] [address] [place] [address] PCP - General PHYSICIAN BUILDING GUARD DEPUTY SHERIFF 02/03/21 06/06/23 [place] [address] [address] [place], [place] [phone] PCP - General FAMILY PRACTICE 06/07/23 [place] [address] [place] [address] NEUROLOGICAL SURGERY 11/24/21 documented as of this encounter
--- OUTSIDE RECORDS SUMMARY | 2025-08-30 15:37 | XMS_ITS | Encounter Summary ---
Author Organization [facility] Address [facility] [place] [address] Care Team Providers Care Marine Insulator Name Role Phone Viv Hamm Primary Care Provider [phone] Alberto Avendano MD Unavailable [phone] Kylee Villanueva MD Primary Care Provider [phone] Encounter Details Date Type Department Care Team (Late st Contact Info) Description 12/02/2021 MyChart Message Enc [facility] Medical Group Multispecialty Care - [facility] [address] [facility] [address] [place] [address] Shane Noble MD [address] [place] [address] Medical Files Social History Tobacco Use Types [...] Sex Assigned at Female 11/14/2024 2:54 PM MATERIAL DAMAGE APPRAISER Legal Sex Female 11:06 AM CDT Gender Identity Female 05/11/2025 1:56 PM CDT Sexual Orientation Not on file COVID-19 Exposure Response Date Recorded In the last month, have you been in contact with someone who was confirmed or suspected to have Coronavirus / COVID-19? No / Unsure 11/10/2021 12:11 PM MATERIAL DAMAGE APPRAISER documented as of this encounter Plan of Treatment Upcoming Encounters Date Type Department Care Team (Latest Contact Info) Description 09/05/2025 1:40 PM MATERIAL DAMAGE APPRAISER Office Visit [facility] Family & Internal Medicine [address] [address] [place] [address] [facility] [place] [address] [phone] 09/13/2025 7:40 AM MATERIAL DAMAGE APPRAISER Office Visit [facility] Family & Internal Medicine [address] [address] [place] [address] [employer] [place] [address] [phone] 09/17/2025 7:00 AM MATERIAL DAMAGE APPRAISER Office Visit [facility] Orthopedic & Sports Medicine [facility] [address] [place] [address] Merrill Hammond MD [address] [place] [address] 10/10/2025 1:40 PM MATERIAL DAMAGE APPRAISER Hospital Encounter [facility] Interventional Pain Management [place] [address] [id number] Elizabeth Ryder MD Three [facility] [address] [place], [place] [phone] 10/10/2025 1:40 PM MATERIAL DAMAGE APPRAISER - 10/10/2025 2:00 PM MATERIAL DAMAGE APPRAISER Surgery [facility] Interventional Pain Management [place] [address] [id number] Elizabeth Ryder MD Three [facility] [address] [place] [address] INJECTION TRIGGER POINT 12/27/2025 10:40 AM MATERIAL DAMAGE APPRAISER Office Visit [facility] Medical Group Multispecialty Care - [facility] [address] [facility] [place] [address] Esau Hoff MD 3 [facility] [address] [place] [address] Scheduled Procedures Name Priority Associated Diagnoses Date/Ti me INJECTION TRIGGER POINT Myofascial pain 10/10/2025 1:40 PM MATERIAL DAMAGE APPRAISER documented as of this encounter Visit Diagnoses Not on filedocumented in this encounter Additional Health Concerns Infection Onset Date Last Indicated Resolved Time COVID-19 Rule Out 12/13/2023 12/13/2023 12/13/2023 8:54 AM MATERIAL DAMAGE APPRAISER COVID-19 Rule Out 08/30/2024 08/30/2024 08/30/2024 8:14 AM MATERIAL DAMAGE APPRAISER COVID-19 Rule Out 11/03/2024 11/03/2024 11/03/2024 10:48 AM MATERIAL DAMAGE APPRAISER documented as of this encounter Care Teams Marine Insulator Relationship Specialty [place] [address] [place] [address] PCP - General PHYSICIAN AIR BAG CURER 02/03/21 06/06/23 [place] [address] [address] [place] [address] PCP - General FAMILY PRACTICE 06/07/23 [place] [address] [place] [address] NEUROLOGICAL SURGERY 11/24/21 documented as of this encounter
--- OUTSIDE RECORDS SUMMARY | 2025-08-30 15:37 | XMS_ITS | Encounter Summary ---
Author Organization [facility] Address [address] [place] [address] Care Team Providers Care Fraternity Adviser Name Role Phone Alberto Avendano MD Unavailable [phone] Kylee Villanueva MD Primary Care Provider [phone] Encounter Details Date Type Department Care Team (Late st Contact Info) Description 07/06/2023 [employer] Message Enc [facility] Interventional Pain [place] [address] [id number] Concha Albert NP 3 [facility] [address] [place] [address] [phone] (Work) RFA Nerve Ablation Social [...] Sex Assigned at Female 11/14/2024 2:54 PM PHONE CIRCUIT OPERATOR Legal Sex Female 11:06 AM CDT Gender Identity Female 05/11/2025 1:56 PM CDT Sexual Orientation Not on file documented as of this encounter Plan of Treatment Upcoming Encounters Date Type Department Care Team (Latest Contact Info) Description 09/05/2025 1:40 PM PHONE CIRCUIT OPERATOR Office Visit [facility] Family & Internal Medicine [address] [address] [place] [address] [place] [address] [phone] 09/13/2025 7:40 AM PHONE CIRCUIT OPERATOR Office Visit [facility] Family & Internal Medicine [address] [address] [place] [address] [place] [address] [phone] 09/17/2025 7:00 AM PHONE CIRCUIT OPERATOR Office Visit [facility] Orthopedic & Sports Medicine [facility] [address] [place] [address] Merrill Hammond MD [address] [place] [address] 10/10/2025 1:40 PM PHONE CIRCUIT OPERATOR Hospital Encounter [facility] Interventional Pain [place] [address] [id number] Elizabeth Ryder MD Three [facility] [address] [place] [address] 10/10/2025 1:40 PM PHONE CIRCUIT OPERATOR - 10/10/2025 2:00 PM PHONE CIRCUIT OPERATOR Surgery [facility] Interventional Pain Management Center ONE [facility] [place] [address] [id number] Elizabeth Ryder MD Three [facility] [address] [place] [address] INJECTION TRIGGER POINT 12/27/2025 10:40 AM PHONE CIRCUIT OPERATOR Office Visit [facility] Medical Group Multispecialty Care - [facility] [address] [facility] [place] [address] Esau Hoff MD 3 [facility] [address] [place] [address] Scheduled Procedures Name Priority Associated Diagnoses Date/Ti me INJECTION TRIGGER POINT Myofascial pain 10/10/2025 1:40 PM PHONE CIRCUIT OPERATOR documented as of this encounter Visit Diagnoses Not on filedocumented in this encounter Additional Health Concerns Infection Onset Date Last Indicated Resolved Time COVID-19 Rule Out 12/13/2023 12/13/2023 12/13/2023 8:54 AM PHONE CIRCUIT OPERATOR COVID-19 Rule Out 08/30/2024 08/30/2024 08/30/2024 8:14 AM PHONE CIRCUIT OPERATOR COVID-19 Rule Out 11/03/2024 11/03/2024 11/03/2024 10:48 AM PHONE CIRCUIT OPERATOR documented as of this encounter Care Teams Fraternity Adviser Relationship Specialty Start [place] [address] [address] [place] [address] PCP - General FAMILY PRACTICE 06/07/23 Alberto Avendano MD NEUROLOGICAL SURGERY 11/24/21 documented as of this encounter
--- OUTSIDE RECORDS SUMMARY | 2025-08-30 15:37 | XMS_ITS | Encounter Summary ---
Author Organization [facility] Address [facility] [place] [address] Care Team Providers Care Vacuum System Tester Name Role Phone Viv Hamm Primary Care Provider [phone] Alberto Avendano MD Unavailable [phone] Kylee Villanueva MD Primary Care Provider [phone] Encounter Details Date Type Department Care Team (Latest Contact Info) Description 11/17/2021 MyChart Message Enc [facility] Medical Group Multispecialty Care - [facility] [address] [facility], [address] [place] [address] Shane Noble MD 1 [place] [address] Appt with Neurosurgeon Social History Tobacco Use [...] Sex Assigned at Female 11/14/2024 2:54 PM RN PERITONEAL DIALYSIS Legal Sex Female 11:06 AM CDT Gender Identity Female 05/11/2025 1:56 PM CDT Sexual Orientation Not on file COVID-19 Exposure Response Date Recorded In the last month, have you been in contact with someone who was confirmed or suspected to have Coronavirus / COVID-19? No / Unsure 11/10/2021 12:11 PM RN PERITONEAL DIALYSIS documented as of this encounter Plan of Treatment Upcoming Encounters Date Type Department Care Team (Latest Contact Info) Description 09/05/2025 1:40 PM RN PERITONEAL DIALYSIS Office Visit [facility] Family & Internal Medicine [address] [address] [place] [address] [facility] [address]. [address] [place] [address] [phone] 09/13/2025 7:40 AM RN PERITONEAL DIALYSIS Office Visit [facility] Family & Internal Medicine [address] [address] [place] [address] [employer] [address] [place] [address] [phone] 09/17/2025 7:00 AM RN PERITONEAL DIALYSIS Office Visit [facility] Orthopedic & Sports Medicine [facility] [address] [place] [address] Merrill Hammond MD [address] [place] [address] 10/10/2025 1:40 PM RN PERITONEAL DIALYSIS Hospital Encounter [facility] Interventional Pain [place] [address] [id number] Elizabeth Ryder MD Three [facility] [address] [place] [address] 10/10/2025 1:40 PM RN PERITONEAL DIALYSIS - 10/10/2025 2:00 PM RN PERITONEAL DIALYSIS Surgery [facility] Interventional Pain Management Center ONE [facility] [place] [address] [id number] Elizabeth Ryder MD Three [facility] [address] [place] [address] INJECTION TRIGGER POINT 12/27/2025 10:40 AM RN PERITONEAL DIALYSIS Office Visit [facility] Medical Group Multispecialty Care - [facility] [address] [facility] [place] [address] Esau Hoff MD 3 [facility] [address] [place] [address] Scheduled Procedures Name Priority Associated Diagnoses Date/Ti me INJECTION TRIGGER POINT Myofascial pain 10/10/2025 1:40 PM RN PERITONEAL DIALYSIS documented as of this encounter Visit Diagnoses Not on filedocumented in this encounter Additional Health Concerns Infection Onset Date Last Indicated Resolved Time COVID-19 Rule Out 12/13/2023 12/13/2023 12/13/2023 8:54 AM RN PERITONEAL DIALYSIS COVID-19 Rule Out 08/30/2024 08/30/2024 08/30/2024 8:14 AM RN PERITONEAL DIALYSIS COVID-19 Rule Out 11/03/2024 11/03/2024 11/03/2024 10:48 AM RN PERITONEAL DIALYSIS documented as of this encounter Care Teams Vacuum System Tester Relationship Specialty [place] [address] [place] [address] PCP - General PHYSICIAN CLINICAL PSYCHOLOGIST 02/03/21 06/06/23 [place] [address] [address] [place] [address] PCP - General FAMILY PRACTICE 06/07/23 [place] [address] [place] [address] NEUROLOGICAL SURGERY 11/24/21 documented as of this encounter
--- OUTSIDE RECORDS SUMMARY | 2025-08-30 15:37 | XMS_ITS | Encounter Summary ---
Author Organization [facility] Address [facility] [place] [address] Care Team Providers Care Pediatric Neuropsychologist Name Role Phone Viv Hamm Primary Care Provider [phone] Alberto Avendano MD Unavailable [phone] Kylee Villanueva MD Primary Care Provider [phone] Encounter Details Date Type Department Care Team (Late st Contact Info) Description 12/10/2021 [employer] Message Enc [facility] Medical Group General Surgery [address], [address] [place] [address] Tracy Godoy MD [address] [place] [address] [address] [facility] [employer]ok System Social History Tobacco Use Types Packs/Day [...] Sex Assigned at Female 11/14/2024 2:54 PM TELECINE OPERATOR Legal Sex Female 11:06 AM CDT Gender Identity Female 05/11/2025 1:56 PM CDT Sexual Orientation Not on file COVID-19 Exposure Response Date Recorded In the last month, have you been in contact with someone who was confirmed or suspected to have Coronavirus / COVID-19? No / Unsure 11/10/2021 12:11 PM TELECINE OPERATOR documented as of this encounter Progress Notes * Artemio Novak MA - 12/10/2021 1:23 PM CST Sent message to the patient stating that Dr. Godoy doesn't know what that is. CINE OPERATOR documented in this encounter Plan of Treatment Upcoming Encounters Date Type Department Care Team (Latest Contact Info) Description 09/05/2025 1:40 PM TELECINE OPERATOR Office Visit [facility] Family & Internal Medicine [address] [phone] [place] [address] [place] [address] 09/13/2025 7:40 AM TELECINE OPERATOR Office Visit [facility] Family & Internal Medicine [address] [phone] [place] [address] [place] [address] 09/17/2025 7:00 AM TELECINE OPERATOR Office Visit [facility] Orthopedic & Sports Medicine - [place] [address] [place] [address] Merrill Hammond MD [address] [place] [address] 10/10/2025 1:40 PM TELECINE OPERATOR Hospital Encounter [facility] Interventional [place] [address] [id number] Elizabeth Ryder MD Three [facility] [address] [place] [address] 10/10/2025 1:40 PM TELECINE OPERATOR - 10/10/2025 2:00 PM TELECINE OPERATOR Surgery [facility] Interventional [place] [address] [id number] Elizabeth Ryder MD Three [facility] [address] [place] [address] INJECTION TRIGGER POINT 12/27/2025 10:40 AM TELECINE OPERATOR Office Visit [facility] Medical Group Multispecialty Care - [address], [address] [place] [phone] Esau Hoff MD 3 [facility] [address] [place] [address] Scheduled Procedures Name Priority Associated Diagnoses Date/Ti me INJECTION TRIGGER POINT Myofascial pain 10/10/2025 1:40 PM TELECINE OPERATOR documented as of this encounter Visit Diagnoses Not on filedocumented in this encounter Additional Health Concerns Infection Onset Date Last Indicated Resolved Time COVID-19 Rule Out 12/13/2023 12/13/2023 12/13/2023 8:54 AM TELECINE OPERATOR COVID-19 Rule Out 08/30/2024 08/30/2024 08/30/2024 8:14 AM TELECINE OPERATOR COVID-19 Rule Out 11/03/2024 11/03/2024 11/03/2024 10:48 AM TELECINE OPERATOR documented as of this encounter Care Teams Pediatric Neuropsychologist Relationship Specialty [place] [address] [place] [address] PCP - General PHYSICIAN CLOTH DRIER 02/03/21 06/06/23 [place] [address] [address] [place] [address] PCP - General FAMILY PRACTICE 06/07/23 [place] [address] [place] [address] NEUROLOGICAL SURGERY 11/24/21 documented as of this encounter
--- OUTSIDE RECORDS SUMMARY | 2025-08-30 15:37 | XMS_ITS | Encounter Summary ---
Author Organization [facility] Address [address] [place] [address] Care Team Providers Care Choir Singer Name Role Phone Alberto Avendano MD Unavailable [phone] Elgin Villanueva MD Primary Care Provider [phone] Reason for Referral * Imaging (Routine) - Closed Specialty Diagnoses / Procedures Referred By Contac t Referred To Contact RADIOLOGY Diagnoses Numbness and tingling of leg Procedures MRI [place] [address] [address] [place] [address] Phone: tel: fax: Referral ID Status Reason Start Date Expiration Date Visits Re quested Visits Authorized [id number] Closed 09/05/2023 03/18/2024 1 1 Encounter Details Date Type Department Care Team (Late st Contact Info) Description 08/25/2023 MyChart Message Enc [facility] Medical Group Family & Internal Medicine [address] [address] [place] [address] [address] [place] [address] Thoracic MRI Social History Tobacco Use [...] Sex Assigned at Female 11/14/2024 2:54 PM FOOD TRUCK CATERER Legal Sex Female 11:06 AM CDT Gender Identity Female 05/11/2025 1:56 PM CDT Sexual Orientation Not on file documented as of this encounter Progress Notes * Josselin Ortiz RN - 08/25/2023 11:22 AM CDT Please advise documented in this encounter Plan of Treatment Upcoming Encounters Date Type Department Care Team (Latest Contact Info) Description 09/05/2025 1:40 PM FOOD TRUCK CATERER Office Visit [facility] Family & Internal Medicine [address] [address] [place] [address] [employer] [place] [address] 09/13/2025 7:40 AM FOOD TRUCK CATERER Office Visit [facility] Family & Internal Medicine [address] [address] [place] [address] [employer] [place] [address] 09/17/2025 7:00 AM FOOD TRUCK CATERER Office Visit [facility] Medical Group Orthopedic & Sports Medicine - [place] [address] [place] [address] Merrill Hammond MD [address] [place] [address] 10/10/2025 1:40 PM FOOD TRUCK CATERER Hospital Encounter [facility] Interventional [place] [address] [id number] Elizabeth Ryder MD Three [facility] [address] [place] [address] 10/10/2025 1:40 PM FOOD TRUCK CATERER - 10/10/2025 2:00 PM FOOD TRUCK CATERER Surgery [facility] Interventional Pain [place] [address] [id number] Elizabeth Ryder MD Three [facility] [address] [place] [address] INJECTION TRIGGER POINT 12/27/2025 10:40 AM FOOD TRUCK CATERER Office Visit [facility] Multispecialty Care - [facility] [address] [facility] [place] [address] Esau Hoff MD 3 [facility] [address] [place] [address] Scheduled Procedures Name Priority Associated Diagnoses Date/Ti me INJECTION TRIGGER POINT Myofascial pain 10/10/2025 1:40 PM FOOD TRUCK CATERER documented as of this encounter Results * MRI THOR SPINE WO CON (10/19/2023 10:57 AM FOOD TRUCK CATERER) Anatomical Region Laterality Modality Spine Magnetic Resonan ce 10/20/2023 7:06 PM FOOD TRUCK CATERER Impressions 10/20/2023 7:09 PM FOOD TRUCK CATERER IMPRESSION: 1. Normal appearance of the thoracic spine. 2. Partially visualized moderate cervical spondylosis, better characterized on the prior MRI cervical spine examination from 02/24/2023. Mild partially visualized lumbar spondylosis, better characterized on the prior MRI lumbar spine examination from 03/13/2023 Ordered By: ELGIN VILLANUEVA Interpreted By: Lionel Costa MD, 10/20/2023 7:06 PM Narrative 10/20/2023 7:09 PM FOOD TRUCK CATERER Examination: MRI THOR SPINE WO CON, 10/20/2023 [...] sensation Myofascial pain Mylagia and myositis, unspecified documented in this encounter Additional Health Concerns Infection Onset Date Last Indicated Resolved Time COVID-19 Rule Out 12/13/2023 12/13/2023 12/13/2023 8:54 AM FOOD TRUCK CATERER COVID-19 Rule Out 08/30/2024 08/30/2024 08/30/2024 8:14 AM FOOD TRUCK CATERER COVID-19 Rule Out 11/03/2024 11/03/2024 11/03/2024 10:48 AM FOOD TRUCK CATERER documented as of this encounter Care Teams Choir Singer Relationship Specialty Start [place] [address] [facility]. [address] [place] [address] PCP - General FAMILY PRACTICE 06/07/23 Alberto Avendano MD NEUROLOGICAL SURGERY 11/24/21 documented as of this encounter
--- OUTSIDE RECORDS SUMMARY | 2025-08-30 15:37 | XMS_ITS | Encounter Summary ---
Author Organization [facility] Address [address] [place] [address] Care Team Providers Care One Piece Expansion Maker Hand Name Role Phone Viv Hamm Primary Care Provider [phone] Alberto Avendano MD Unavailable [phone] Kylee Villanueva MD Primary Care Provider [phone] Encounter Details Date Type Department Care Team (Late st Contact Info) Description 08/20/2021 Array Bridgehart Message Enc [facility] Medical Group Family & Internal Medicine [facility] [address] [place] [address] Viv Hamm [place] [id number] [place] [address] RE: Test Results Social History Tobacco [...] Sex Assigned at Female 11/14/2024 2:54 PM EMPLOYMENT INSTRUCTIONAL ASSOCIATE Legal Sex Female 11:06 AM CDT [...] (Latest Contact Info) Description 09/05/2025 1:40 PM EMPLOYMENT INSTRUCTIONAL ASSOCIATE Office Visit [facility] Family & Internal Medicine [address] [address] [place] [address] [address] [place] [address] [phone] 09/13/2025 7:40 AM EMPLOYMENT INSTRUCTIONAL ASSOCIATE Office Visit [facility] Family & Internal Medicine [address] [address] [place] [address] [place] [address] [phone] 09/17/2025 7:00 AM EMPLOYMENT INSTRUCTIONAL ASSOCIATE Office Visit [facility] Orthopedic & Sports Medicine [facility] [address] [place] [address] Merrill Hammond MD [address] [place] [address] 10/10/2025 1:40 PM EMPLOYMENT INSTRUCTIONAL ASSOCIATE Hospital [facility] [place] [address] [id number] Elizabeth Ryder MD [facility] [address] [place] [address] 10/10/2025 1:40 PM EMPLOYMENT INSTRUCTIONAL ASSOCIATE - 10/10/2025 2:00 PM EMPLOYMENT INSTRUCTIONAL ASSOCIATE [facility] [place] [address] [id number] Elizabeth Ryder MD [facility] [address] [place] [address] INJECTION TRIGGER POINT 12/27/2025 10:40 AM EMPLOYMENT INSTRUCTIONAL ASSOCIATE Office Visit [facility] Medical Group Multispecialty Care - [facility] [address] [facility] [address] [place] [address] Esau Hoff MD 3 Health [address] [place] [address] Scheduled Procedures Name Priority Associated Diagnoses Date/Ti me INJECTION TRIGGER POINT Myofascial pain 10/10/2025 1:40 PM EMPLOYMENT INSTRUCTIONAL ASSOCIATE documented as of this encounter Visit Diagnoses Not on filedocumented in this encounter Additional Health Concerns Infection Onset Date Last Indicated Resolved Time COVID-19 Rule Out 12/13/2023 12/13/2023 12/13/2023 8:54 AM EMPLOYMENT INSTRUCTIONAL ASSOCIATE COVID-19 Rule Out 08/30/2024 08/30/2024 08/30/2024 8:14 AM EMPLOYMENT INSTRUCTIONAL ASSOCIATE COVID-19 Rule Out 11/03/2024 11/03/2024 11/03/2024 10:48 AM EMPLOYMENT INSTRUCTIONAL ASSOCIATE documented as of this encounter Care Teams One Piece Expansion Maker Hand Relationship Specialty [place] [address] [place] [address] PCP - General PHYSICIAN DIRECTOR SELECTION AND ADMINISTRATION 02/03/21 06/06/23 [place] [address] [address] [place], [place] [id number] PCP - General FAMILY PRACTICE 06/07/23 [place] [address] [place] [address] NEUROLOGICAL SURGERY 11/24/21 documented as of this encounter
--- OUTSIDE RECORDS SUMMARY | 2025-08-30 15:37 | XMS_ITS | Encounter Summary ---
Author Organization [facility] Address [facility] [place] [address] Care Team Providers Care Clinical Account Executive Name Role Phone Viv Hamm Primary Care Provider [phone] Alberto Avendano MD Unavailable [phone] Kylee Villanueva MD Primary Care Provider [phone] Encounter Details Date Type Department Care Team (Late st Contact Info) Description 12/22/2021 MyChart Message Enc [facility] Medical Group Multispecialty Care - [facility] [address] [facility] [address] [place] [address] Shane Noble MD 1 [place] [address] Appt Social History Tobacco Use Types Packs/Day [...] Sex Assigned at Female 11/14/2024 2:54 PM MOLD MECHANIC Legal Sex Female 11:06 AM CDT Gender Identity Female 05/11/2025 1:56 PM CDT Sexual Orientation Not on file COVID-19 Exposure Response Date Recorded In the last 10 days, have yo u been in contact with someone who was confirmed or suspected to have Coronavirus/COVID-19? No / Unsure 12/22/2021 8:14 AM MOLD MECHANIC documented as of this encounter Plan of Treatment Upcoming Encounters Date Type Department Care Team (Latest Contact Info) Description 09/05/2025 1:40 PM MOLD MECHANIC Office Visit [facility] Family & Internal Medicine [address] [address] [place] [address] [facility] [address] [place] [address] [phone] 09/13/2025 7:40 AM MOLD MECHANIC Office Visit [facility] Family & Internal Medicine [address] [address] [place] [address] [address] [place] [address] 09/17/2025 7:00 AM MOLD MECHANIC Office Visit [facility] Orthopedic & Sports Medicine [facility] [address] [place] [address] Merrill Hammond MD [address] [place] [address] 10/10/2025 1:40 PM MOLD MECHANIC Hospital Encounter [facility] [place] [address] [id number] Elizabeth Ryder MD Three [facility] [address] [place] [address] 10/10/2025 1:40 PM MOLD MECHANIC - 10/10/2025 2:00 PM MOLD MECHANIC Surgery [facility] Interventional [place] [address] [id number] Elizabeth Ryder MD Three [facility] [address] [place] [address] INJECTION TRIGGER POINT 12/27/2025 10:40 AM MOLD MECHANIC Office Visit [facility] Medical Group Multispecialty Care - [facility] 3 [facility] [address] [place] [address] Esau Hoff MD 3 [facility] [address] [place] [address] Scheduled Procedures Name Priority Associated Diagnoses Date/Ti me INJECTION TRIGGER POINT Myofascial pain 10/10/2025 1:40 PM MOLD MECHANIC documented as of this encounter Visit Diagnoses Not on filedocumented in this encounter Additional Health Concerns Infection Onset Date Last Indicated Resolved Time COVID-19 Rule Out 12/13/2023 12/13/2023 12/13/2023 8:54 AM MOLD MECHANIC COVID-19 Rule Out 08/30/2024 08/30/2024 08/30/2024 8:14 AM MOLD MECHANIC COVID-19 Rule Out 11/03/2024 11/03/2024 11/03/2024 10:48 AM MOLD MECHANIC documented as of this encounter Care Teams Clinical Account Executive Relationship Specialty [place] [address] [place] [address] PCP - General PHYSICIAN NAPHTHALENE OPERATOR 02/03/21 06/06/23 [place] [address] [address] [place] [address] PCP - General FAMILY PRACTICE 06/07/23 [place] [address] [place] [address] NEUROLOGICAL SURGERY 11/24/21 documented as of this encounter
--- OUTSIDE RECORDS SUMMARY | 2025-08-30 15:37 | XMS_ITS | Encounter Summary ---
Author Organization [facility] Address [facility] [place] [address] Care Team Providers Care [place] Aide Name Role Phone Viv Hamm Primary Care Provider [phone] Alberto Avendano MD Unavailable [phone] Kylee Villanueva MD Primary Care Provider [phone] Encounter Details Date Type Department Care Team (Latest Contact Info) Description 11/10/2022 MyChart Message Enc [facility] Medical Group Multispecialty Care - [facility] 3 [facility], [address] [place] [address] Shane Noble MD 1 [place] [address] Small Fiber Neuropathy Biopsy Social History Tobacco [...] Sex Assigned at Female 11/14/2024 2:54 PM REJECT OPENER AND FILLER Legal Sex Female 11:06 AM CDT Gender Identity Female 05/11/2025 1:56 PM CDT Sexual Orientation Not on file COVID-19 Exposure Response Date Recorded In the last 10 days, have yo u been in contact with someone who was confirmed or suspected to have Coronavirus/COVID-19? No / Unsure 11/06/2022 2:42 PM REJECT OPENER AND FILLER documented as of this encounter Progress Notes * Shane Noble MD - 11/10/2022 6:01 PM CST Can you please contact the referral dept and provide the numbers she has kindly listed in her message? CT OPENER AND FILLER documented in this encounter Plan of Treatment Upcoming Encounters Date Type Department Care Team (Latest Contact Info) Description 09/05/2025 1:40 PM REJECT OPENER AND FILLER Office Visit [facility] Family & Internal Medicine [address] [address] [place] [address] [address] [place] [address] 09/13/2025 7:40 AM REJECT OPENER AND FILLER Office Visit [facility] Family & Internal Medicine [address] [address] [place] [address] [address] [address] 09/17/2025 7:00 AM REJECT OPENER AND FILLER Office Visit [facility] Orthopedic & Sports Medicine - [place] [address] [place] [address] Merrill Hammond MD [address] [place] [address] 10/10/2025 1:40 PM REJECT OPENER AND FILLER Hospital Encounter [facility] Interventional Pain Management [place] [address] [id number] Elizabeth Ryder MD Three [facility] [address] [place] [address] 10/10/2025 1:40 PM REJECT OPENER AND FILLER - 10/10/2025 2:00 PM REJECT OPENER AND FILLER Surgery [facility] Interventional Pain Management [place] [address] [id number] Elizabeth Ryder MD Three [facility] [address] [place] [address] INJECTION TRIGGER POINT 12/27/2025 10:40 AM REJECT OPENER AND FILLER Office Visit [facility] Medical Group Multispecialty Care - [facility] 3 [facility] [address] [place] [address] Esau Hoff MD 3 [facility] [address] [place] [address] Scheduled Procedures Name Priority Associated Diagnoses Date/Ti me INJECTION TRIGGER POINT Myofascial pain 10/10/2025 1:40 PM REJECT OPENER AND FILLER documented as of this encounter Visit Diagnoses Not on filedocumented in this encounter Additional Health Concerns Infection Onset Date Last Indicated Resolved Time COVID-19 Rule Out 12/13/2023 12/13/2023 12/13/2023 8:54 AM REJECT OPENER AND FILLER COVID-19 Rule Out 08/30/2024 08/30/2024 08/30/2024 8:14 AM REJECT OPENER AND FILLER COVID-19 Rule Out 11/03/2024 11/03/2024 11/03/2024 10:48 AM REJECT OPENER AND FILLER documented as of this encounter Care Teams [place] Aide Relationship Specialty [place] [address] [place] [address] PCP - General PHYSICIAN HAND POTTER 02/03/21 06/06/23 [place] [address] [address] [place] [address] PCP - General FAMILY PRACTICE 06/07/23 [place] [address] [place] [address] NEUROLOGICAL SURGERY 11/24/21 documented as of this encounter
--- OUTSIDE RECORDS SUMMARY | 2025-08-30 15:37 | XMS_ITS | Encounter Summary ---
Author Organization [facility] Address [facility] [place] [address] Care Team Providers Care Rn Clinical Research Name Role Phone Viv Hamm Primary Care Provider [phone] Alberto Avendano MD Unavailable [phone] Kylee Villanueva MD Primary Care Provider [phone] Encounter Details Date Type Department Care Team (Late st Contact Info) Description 06/04/2023 MyChart Message Enc [facility] Medical Group Family & Internal Medicine [facility] [address] [place] [address] Viv Hamm [place] [id number] [place] [address] Imaging Social History Tobacco Use Types [...] Sex Assigned at Female 11/14/2024 2:54 PM FABRIC AND TEXTILE FACTORY WORKER Legal Sex Female 11:06 AM CDT Gender Identity Female 05/11/2025 1:56 PM CDT Sexual Orientation Not on file documented as of this encounter Plan of Treatment Upcoming Encounters Date Type Department Care Team (Latest Contact Info) Description 09/05/2025 1:40 PM FABRIC AND TEXTILE FACTORY WORKER Office Visit [facility] Family & Internal Medicine [address] [address] [place] [email or web address] [place] [address] [phone] 09/13/2025 7:40 AM FABRIC AND TEXTILE FACTORY WORKER Office Visit [facility] Family & Internal Medicine [address] [address] [place] [email or web address] [place] [address] [phone] 09/17/2025 7:00 AM FABRIC AND TEXTILE FACTORY WORKER Office Visit [facility] Orthopedic & Sports Medicine [facility] [address] [place] [address] Merrill Hammond MD [address] [place] [address] 10/10/2025 1:40 PM FABRIC AND TEXTILE FACTORY WORKER Hospital Encounter [facility] Interventional Pain [place] [address] [id number] Elizabeth Ryder MD Three [facility] [address] [place] [address] 10/10/2025 1:40 PM FABRIC AND TEXTILE FACTORY WORKER - 10/10/2025 2:00 PM FABRIC AND TEXTILE FACTORY WORKER Surgery [facility] Interventional Pain Management Center [facility] [place] [address] [id number] Elizabeth Ryder MD Three [facility] [address] [place] [address] INJECTION TRIGGER POINT 12/27/2025 10:40 AM FABRIC AND TEXTILE FACTORY WORKER Office Visit [facility] Medical Group Multispecialty Care - [facility] 3 [facility] [address] [place] [address] Esau Hoff MD 3 [facility] [address] [place] [address] Scheduled Procedures Name Priority Associated Diagnoses Date/Ti me INJECTION TRIGGER POINT Myofascial pain 10/10/2025 1:40 PM FABRIC AND TEXTILE FACTORY WORKER documented as of this encounter Visit Diagnoses Not on filedocumented in this encounter Additional Health Concerns Infection Onset Date Last Indicated Resolved Time COVID-19 Rule Out 12/13/2023 12/13/2023 12/13/2023 8:54 AM FABRIC AND TEXTILE FACTORY WORKER COVID-19 Rule Out 08/30/2024 08/30/2024 08/30/2024 8:14 AM FABRIC AND TEXTILE FACTORY WORKER COVID-19 Rule Out 11/03/2024 11/03/2024 11/03/2024 10:48 AM FABRIC AND TEXTILE FACTORY WORKER documented as of this encounter Care Teams Rn Clinical Research Relationship Specialty [place] [address] [place] [address] PCP - General PHYSICIAN OFFICE MACHINES TEACHER 02/03/21 06/06/23 [place] [address] [address] [place] [address] PCP - General FAMILY PRACTICE 8/14/23 [place] [address] [place] [address] NEUROLOGICAL SURGERY 11/24/21 documented as of this encounter
--- OUTSIDE RECORDS SUMMARY | 2025-08-30 15:37 | XMS_ITS | Encounter Summary ---
Author Organization [facility] Address [address] [place] [address] Care Team Providers Care Binding Machine Operator Name Role Phone Viv Hamm Primary Care Provider [phone] Alberto Avendano MD Unavailable [phone] Kylee Villanueva MD Primary Care Provider [phone] Encounter Details Date Type Department Care Team (Late st Contact Info) Description 09/04/2021 MyChart Message Enc [facility] Medical Group Family & Internal Medicine [facility] [address] [place] [address] Viv Hamm [place] [id number] [place] [address] MRI Results Social History Tobacco Use [...] Sex Assigned at Female 11/14/2024 2:54 PM PROJECT MANAGER INDUSTRIAL Legal Sex Female 11:06 AM CDT Gender Identity Female 05/11/2025 1:56 PM CDT Sexual Orientation Not on file COVID-19 Exposure Response Date Recorded In the last month, have you been in contact with someone who was confirmed or suspected to have Coronavirus / COVID-19? No / Unsure 09/03/2021 7:47 AM PROJECT MANAGER INDUSTRIAL documented as of this encounter Plan of Treatment Upcoming Encounters Date Type Department Care Team (Latest Contact Info) Description 09/05/2025 1:40 PM PROJECT MANAGER INDUSTRIAL Office Visit [facility] Family & Internal Medicine [address] [phone] [place] [address] [address] [place] [address] [phone] 09/13/2025 7:40 AM PROJECT MANAGER INDUSTRIAL Office Visit [facility] Family & Internal Medicine [address] [address] [place] [address] [place] [address] [phone] 09/17/2025 7:00 AM PROJECT MANAGER INDUSTRIAL Office Visit [facility] Orthopedic & Sports Medicine [facility] [address] [place] [address] Merrill Hammond MD [address] [place] [address] 10/10/2025 1:40 PM PROJECT MANAGER INDUSTRIAL Hospital Encounter [facility] Interventional Pain [place] [address] [id number] Elizabeth Ryder MD Three [facility] [address] [place] [address] 10/10/2025 1:40 PM PROJECT MANAGER INDUSTRIAL - 10/10/2025 2:00 PM PROJECT MANAGER INDUSTRIAL Surgery [facility] Interventional Pain [place] [address] [id number] Elizabeth Ryder MD Three [facility] [address] [place] [address] INJECTION TRIGGER POINT 12/27/2025 10:40 AM PROJECT MANAGER INDUSTRIAL Office Visit [facility] Medical Group Multispecialty Care - [facility] 3 [facility] [address] [place] [address] Esau Hoff MD 3 [facility] [address] [place] [address] Scheduled Procedures Name Priority Associated Diagnoses Date/Ti me INJECTION TRIGGER POINT Myofascial pain 10/10/2025 1:40 PM PROJECT MANAGER INDUSTRIAL documented as of this encounter Visit Diagnoses Not on filedocumented in this encounter Additional Health Concerns Infection Onset Date Last Indicated Resolved Time COVID-19 Rule Out 12/13/2023 12/13/2023 12/13/2023 8:54 AM PROJECT MANAGER INDUSTRIAL COVID-19 Rule Out 08/30/2024 08/30/2024 08/30/2024 8:14 AM PROJECT MANAGER INDUSTRIAL COVID-19 Rule Out 11/03/2024 11/03/2024 11/03/2024 10:48 AM PROJECT MANAGER INDUSTRIAL documented as of this encounter Care Teams Binding Machine Operator Relationship Specialty [place] [address] [address] [place], [place] [phone] PCP - General PHYSICIAN DULITE MACHINE BLUER 02/03/21 06/06/23 [place] [address] [address] [place] [address] [phone] PCP - General FAMILY PRACTICE 06/07/23 [place] [address] [place] [address] NEUROLOGICAL SURGERY 11/24/21 documented as of this encounter
--- OUTSIDE RECORDS SUMMARY | 2025-08-30 15:37 | XMS_ITS | Encounter Summary ---
Author Organization [facility] Address [address] [place] [address] Care Team Providers Care Master Fisher Name Role Phone Viv Hamm Primary Care Provider [phone] Alberto Avendano MD Unavailable [phone] Kylee Villanueva MD Primary Care Provider [phone] Encounter Details Date Type Department Care Team (Late st Contact Info) Description 03/02/2021 MyChart Message Enc [facility] Medical Group Family & Internal Medicine [facility] [address] [place] [address] Viv Hamm [place] [phone] [place] [address] RE: Test Results Social History Tobacco [...] Assigned at Female 11/14/2024 2:54 PM NETWORK SECURITY OFFICER Legal Sex Female 11:06 AM CDT [...] Contact Info) Description 09/05/2025 1:40 PM NETWORK SECURITY OFFICER Office Visit [facility] Family & Internal Medicine [address] [address] [place] [address] [address] [place] [address] [phone] 09/13/2025 7:40 AM NETWORK SECURITY OFFICER Office Visit [facility] Family & Internal Medicine [address] [address] [place] [address] [place] [address] [phone] 09/17/2025 7:00 AM NETWORK SECURITY OFFICER Office Visit [facility] Orthopedic & Sports Medicine [facility] [address] [place] [address] Merrill Hammond MD [address]70 [place] [address] 10/10/2025 1:40 PM NETWORK SECURITY OFFICER Hospital Encounter [facility] Interventional [place] [address] [id number] Elizabeth Ryder MD Three [facility] [address] [place] [address] 10/10/2025 1:40 PM NETWORK SECURITY OFFICER - 10/10/2025 2:00 PM NETWORK SECURITY OFFICER Surgery [facility] Interventional [place] [address] [id number] Elizabeth Ryder MD Three [facility] [address] [place] [address] INJECTION TRIGGER POINT 12/27/2025 10:40 AM NETWORK SECURITY OFFICER Office Visit [facility] Medical Group Multispecialty Care - [facility] 3 [facility] [address] [place] [address] Esau Hoff MD 3 [facility] [address] [place] [address] Scheduled Procedures Name Priority Associated Diagnoses Date/Ti me INJECTION TRIGGER POINT Myofascial pain 10/10/2025 1:40 PM NETWORK SECURITY OFFICER documented as of this encounter Visit Diagnoses Not on filedocumented in this encounter Additional Health Concerns Infection Onset Date Last Indicated Resolved Time COVID-19 Rule Out 12/13/2023 12/13/2023 12/13/2023 8:54 AM NETWORK SECURITY OFFICER COVID-19 Rule Out 08/30/2024 08/30/2024 08/30/2024 8:14 AM NETWORK SECURITY OFFICER COVID-19 Rule Out 11/03/2024 11/03/2024 11/03/2024 10:48 AM NETWORK SECURITY OFFICER documented as of this encounter Care Teams Master Fisher Relationship Specialty [place] [address] [place] [address] PCP - General PHYSICIAN CREPE MACHINE OPERATOR 02/03/21 06/06/23 [place] [address] [address] [place], [place] [phone] PCP - General FAMILY PRACTICE 06/07/23 [place] [address] [place] [address] NEUROLOGICAL SURGERY 11/24/21 documented as of this encounter
--- OUTSIDE RECORDS SUMMARY | 2025-08-30 15:37 | XMS_ITS | Encounter Summary ---
Author Organization [facility] Address [address] [place] [address] Care Team Providers Care Cyber Security Name Role Phone Viv Hamm Primary Care Provider [phone] Alberto Avendano MD Unavailable [phone] Kylee Villanueva MD Primary Care Provider [phone] Encounter Details Date Type Department Care Team (Late st Contact Info) Description 09/24/2021 MyChart Message Enc [facility] Medical Group Family & Internal Medicine [facility] [address] [place] [address] [place] Hamm [place] [id number] [place] [address] B12 Blood Test Social History Tobacco [...] Sex Assigned at Female 11/14/2024 2:54 PM X RAY TECHNOLOGIST Legal Sex Female 11:06 AM CDT Gender Identity Female 05/11/2025 1:56 PM CDT Sexual Orientation Not on file COVID-19 Exposure Response Date Recorded In the last month, have you been in contact with someone who was confirmed or suspected to have Coronavirus / COVID-19? No / Unsure 09/23/2021 8:30 AM X RAY TECHNOLOGIST documented as of this encounter Plan of Treatment Upcoming Encounters Date Type Department Care Team (Latest Contact Info) Description 09/05/2025 1:40 PM X RAY TECHNOLOGIST Office Visit [facility] Family & Internal Medicine [address] [address] [place] [address] [address] [place] [address] [phone] 09/13/2025 7:40 AM X RAY TECHNOLOGIST Office Visit [facility] Family & Internal Medicine [address] [address] [place] [address] [address] [place] [address] [phone] 09/17/2025 7:00 AM X RAY TECHNOLOGIST Office Visit [facility] Orthopedic & Sports Medicine [facility] [address] [place] [address] Merrill Hammond MD [address] [place] [address] 10/10/2025 1:40 PM X RAY TECHNOLOGIST Hospital Encounter [facility] Interventional Pain Management [place] [address] [id number] Elizabeth Ryder MD Three [facility] [address] [place] [address] 10/10/2025 1:40 PM X RAY TECHNOLOGIST - 10/10/2025 2:00 PM X RAY TECHNOLOGIST Surgery [facility] Interventional Pain Management [place] [address] [id number] Elizabeth Ryder MD Three [facility] [address] [place] [address] INJECTION TRIGGER POINT 12/27/2025 10:40 AM X RAY TECHNOLOGIST Office Visit [facility] Medical Group Multispecialty Care - [facility] 3 [facility] [address] [place] [address] Esau Hoff MD 3 [facility] [address] [place] [address] Scheduled Procedures Name Priority Associated Diagnoses Date/Ti me INJECTION TRIGGER POINT Myofascial pain 10/10/2025 1:40 PM X RAY TECHNOLOGIST documented as of this encounter Visit Diagnoses Not on filedocumented in this encounter Additional Health Concerns Infection Onset Date Last Indicated Resolved Time COVID-19 Rule Out 12/13/2023 12/13/2023 12/13/2023 8:54 AM X RAY TECHNOLOGIST COVID-19 Rule Out 08/30/2024 08/30/2024 08/30/2024 8:14 AM X RAY TECHNOLOGIST COVID-19 Rule Out 11/03/2024 11/03/2024 11/03/2024 10:48 AM X RAY TECHNOLOGIST documented as of this encounter Care Teams Cyber Security Relationship Specialty [place] [address] [address] [place], [place] [phone] PCP - General PHYSICIAN COVER STITCH MACHINE OPERATOR 02/03/21 06/06/23 [place] [address] [address] [place], [place] [id number] PCP - General FAMILY PRACTICE 06/07/23 [place] [address] [place] [address] NEUROLOGICAL SURGERY 11/24/21 documented as of this encounter
--- OUTSIDE RECORDS SUMMARY | 2025-08-30 15:37 | XMS_ITS | Encounter Summary ---
Author Organization [facility] Address [facility] [place] [address] Care Team Providers Care Patient Account Specialist Name Role Phone Viv Hamm Primary Care Provider [phone] Alberto Avendano MD Unavailable [phone] Kylee Villanueva MD Primary Care Provider [phone] Encounter Details Date Type Department Care Team (Late st Contact Info) Description 07/01/2021 Anturishart Message Enc [facility] Medical Group General Surgery [address], [address] [place] [address] Tracy Godoy MD [address] [place] [address] [address] Test Results Social History Tobacco Use Types [...] Sex Assigned at Female 11/14/2024 2:54 PM GUEST SERVICES AMBASSADOR Legal Sex Female 11:06 AM CDT Gender [...] (Latest Contact Info) Description 09/05/2025 1:40 PM GUEST SERVICES AMBASSADOR Office Visit [facility] Family & Internal Medicine [address] [phone] [place] [address] [place] [address] 09/13/2025 7:40 AM GUEST SERVICES AMBASSADOR Office Visit [facility] Family & Internal Medicine [address] [phone] [place] [address] [place] [address] 09/17/2025 7:00 AM GUEST SERVICES AMBASSADOR Office Visit [facility] Orthopedic & Sports Medicine - [place] [address] [place] [address] Merrill Hammond MD [address] [place] [address] 10/10/2025 1:40 PM GUEST SERVICES AMBASSADOR Hospital Encounter [facility] Interventional Pain [place] [address] [id number] Elizabeth Ryder MD Three [facility] [address] [place] [address] 10/10/2025 1:40 PM GUEST SERVICES AMBASSADOR - 10/10/2025 2:00 PM GUEST SERVICES AMBASSADOR Surgery [facility] Interventional Pain Management [place] [address] [id number] Elizabeth Ryder MD Three [facility] [address] [place] [address] INJECTION TRIGGER POINT 12/27/2025 10:40 AM GUEST SERVICES AMBASSADOR Office Visit [facility] Medical Group Multispecialty Care - [address], [address] [place] [address] Esau Hoff MD 3 [facility] [address] [place] [address] Scheduled Procedures Name Priority Associated Diagnoses Date/Ti me INJECTION TRIGGER POINT Myofascial pain 10/10/2025 1:40 PM GUEST SERVICES AMBASSADOR documented as of this encounter Visit Diagnoses Not on filedocumented in this encounter Additional Health Concerns Infection Onset Date Last Indicated Resolved Time COVID-19 Rule Out 12/13/2023 12/13/2023 12/13/2023 8:54 AM GUEST SERVICES AMBASSADOR COVID-19 Rule Out 08/30/2024 08/30/2024 08/30/2024 8:14 AM GUEST SERVICES AMBASSADOR COVID-19 Rule Out 11/03/2024 11/03/2024 11/03/2024 10:48 AM GUEST SERVICES AMBASSADOR documented as of this encounter Care Teams Patient Account Specialist Relationship Specialty [place] [address] [place] [address] PCP - General PHYSICIAN CIVIL ENGINEER IN TRAINING 02/03/21 06/06/23 [place] [address] [address] [place] [address] PCP - General FAMILY PRACTICE 06/07/23 [place] [address] [place] [address] NEUROLOGICAL SURGERY 11/24/21 documented as of this encounter
--- OUTSIDE RECORDS SUMMARY | 2025-08-30 15:37 | XMS_ITS | Encounter Summary ---
Author Organization [facility] Address [address] [place] [address] Care Team Providers Care Maritime Guard Name Role Phone Viv Hamm Primary Care Provider [phone] Alberto Avendano MD Unavailable [phone] Kylee Villanueva MD Primary Care Provider Encounter Details Date Type Department Care Team (Late st Contact Info) Description 10/15/2021 MyChart Message Enc [facility] Medical Group Family & Internal Medicine [facility] [address] [place] [address] Viv Hamm [place] [address] [place] [address] Blood test and Urinalysis Questions Social [...] Sex Assigned at Female 11/14/2024 2:54 PM HEAT SEALING MACHINE OPERATOR Legal Sex Female 11:06 AM CDT Gender Identity Female 05/11/2025 1:56 PM CDT Sexual Orientation Not on file COVID-19 Exposure Response Date Recorded In the last month, have you been in contact with someone who was confirmed or suspected to have Coronavirus / COVID-19? No / Unsure 10/16/2021 12:10 PM HEAT SEALING MACHINE OPERATOR documented as of this encounter Progress Notes * Anabell Vallecillo MA - 10/20/2021 2:34 PM CST Ok per Viv to have UA with labs on 10/21/21. Order placed for lab downstairs. Pt informed. SEALING MACHINE OPERATOR documented in this encounter Plan of Treatment Upcoming Encounters Date Type Department Care Team (Latest Contact Info) Description 09/05/2025 1:40 PM HEAT SEALING MACHINE OPERATOR Office Visit [facility] Family & Internal Medicine [address] [phone] [place] [address] [address] [place] [address] 09/13/2025 7:40 AM HEAT SEALING MACHINE OPERATOR Office Visit [facility] Family & Internal Medicine [address] [phone] [place] [address] [address] [place] [address] 09/17/2025 7:00 AM HEAT SEALING MACHINE OPERATOR Office Visit [facility] Medical [facility] Orthopedic & Sports Medicine [place] [address] [place] [address] Merrill Hammond MD 670 [place] [address] 10/10/2025 1:40 PM HEAT SEALING MACHINE OPERATOR Hospital Encounter [facility] Interventional [place] [address] [id number] Elizabeth Ryder MD Three [facility] [address] [place] [address] 10/10/2025 1:40 PM HEAT SEALING MACHINE OPERATOR - 10/10/2025 2:00 PM HEAT SEALING MACHINE OPERATOR Surgery [facility] Interventional Pain Management [place] [address] [id number] Elizabeth Ryder MD Three [facility] [address] [place] [address] INJECTION TRIGGER POINT 12/27/2025 10:40 AM HEAT SEALING MACHINE OPERATOR Office Visit [facility] Medical Group Multispecialty Care - [facility] 3 [facility] [address] [place] [address] Esau Hoff MD 3 [facility] [address] [place] [address] Scheduled Procedures Name Priority Associated Diagnoses Date/Ti me INJECTION TRIGGER POINT Myofascial pain 10/10/2025 1:40 PM HEAT SEALING MACHINE OPERATOR documented as of this encounter Visit Diagnoses Not on filedocumented in this encounter Additional Health Concerns Infection Onset Date Last Indicated Resolved Time COVID-19 Rule Out 12/13/2023 12/13/2023 12/13/2023 8:54 AM HEAT SEALING MACHINE OPERATOR COVID-19 Rule Out 08/30/2024 08/30/2024 08/30/2024 8:14 AM HEAT SEALING MACHINE OPERATOR COVID-19 Rule Out 11/03/2024 11/03/2024 11/03/2024 10:48 AM HEAT SEALING MACHINE OPERATOR documented as of this encounter Care Teams Maritime Guard Relationship Specialty [place] [address] [place] [address] PCP - General PHYSICIAN GUN PROFILER 02/03/21 06/06/23 [place] [address] [address] [address] PCP - General FAMILY PRACTICE 06/07/23 [place] [address] [place] [address] NEUROLOGICAL SURGERY 11/24/21 documented as of this encounter
--- OUTSIDE RECORDS SUMMARY | 2025-08-30 15:37 | XMS_ITS | Encounter Summary ---
Author Organization [facility] Address [address] [place] [address] Care Team Providers Care Decorating Supervisor Name Role Phone Alberto Avendano MD Unavailable [phone] Kylee Villanueva MD Primary Care Provider [phone] Encounter Details Date Type Department Care Team (Late st Contact Info) Description 07/21/2023 Cloudmetert Message Enc [facility] Medical Group Family & Internal Medicine [address] [address] Kylee Villanueva MD [address] [place] [address]. [address] [place] [address] Blood Pressure Social History Tobacco [...] Sex Assigned at Female 11/14/2024 2:54 PM GROUP RESERVATIONS COORDINATOR Legal Sex Female 11:06 AM CDT Gender Identity Female 05/11/2025 1:56 PM CDT Sexual Orientation Not on file documented as of this encounter Progress Notes * Josselin Ortiz RN - 07/21/2023 1:38 PM CDT Please advise documented in this encounter Plan of Treatment Upcoming Encounters Date Type Department Care Team (Latest Contact Info) Description 09/05/2025 1:40 PM GROUP RESERVATIONS COORDINATOR Office Visit [facility] Family & Internal Medicine [address] [phone] [place] [address] [facility] [address] [place] [phone] 09/13/2025 7:40 AM GROUP RESERVATIONS COORDINATOR Office Visit [facility] Family & Internal [address] [address] [place] [address] [facility] [place] [address] 09/17/2025 7:00 AM GROUP RESERVATIONS COORDINATOR Office Visit [facility] Orthopedic & Sports Medicine [facility] 6[address] [place] [address] Merrill Hammond MD 670 [place] [address] 10/10/2025 1:40 PM GROUP RESERVATIONS COORDINATOR Hospital Encounter [facility] Interventional Pain [place] [address] [id number] Elizabeth Ryder MD Three [facility] [address] [place] [address] 10/10/2025 1:40 PM GROUP RESERVATIONS COORDINATOR - 10/10/2025 2:00 PM GROUP RESERVATIONS COORDINATOR Surgery [facility] Interventional Pain Management [place] [address] [id number] Elizabeth Ryder MD Three [facility] [address] [place] [address] INJECTION TRIGGER POINT 12/27/2025 10:40 AM GROUP RESERVATIONS COORDINATOR Office Visit [facility] Medical Group Multispecialty Care - [facility] 3 [facility], [address] [place] [address] Esau Hoff MD 3 [facility] [address] [place] [address] Scheduled Procedures Name Priority Associated Diagnoses Date/Ti me INJECTION TRIGGER POINT Myofascial pain 10/10/2025 1:40 PM GROUP RESERVATIONS COORDINATOR documented as of this encounter Visit Diagnoses Diagnosis Primary hypertension- Primary Unspecified essential hypertension Myofascial pain Mylagia and myositis, unspecified documented in this encounter Additional Health Concerns Infection Onset Date Last Indicated Resolved Time COVID-19 Rule Out 12/13/2023 12/13/2023 12/13/2023 8:54 AM GROUP RESERVATIONS COORDINATOR COVID-19 Rule Out 08/30/2024 08/30/2024 08/30/2024 8:14 AM GROUP RESERVATIONS COORDINATOR COVID-19 Rule Out 11/03/2024 11/03/2024 11/03/2024 10:48 AM GROUP RESERVATIONS COORDINATOR documented as of this encounter Care Teams Decorating Supervisor Relationship Specialty [place] [address] [address] [place] [address] PCP - General FAMILY PRACTICE 06/07/23 Alberto Avendano MD NEUROLOGICAL SURGERY 11/24/21 documented as of this encounter
--- OUTSIDE RECORDS SUMMARY | 2025-08-30 15:37 | XMS_ITS | Encounter Summary ---
Author Organization [facility] Address [facility] [place] [address] Care Team Providers Care Railway Station Manager Name Role Phone Viv Hamm Primary Care Provider [phone] Alberto Avendano MD Unavailable [phone] Kylee Villanueva MD Primary Care Provider [phone] Encounter Details Date Type Department Care Team (Latest Contact Info) Description 01/20/2023 MyChart Message Enc [facility] Medical Group Multispecialty Care - [facility] 3 [facility] [address] [place] [address] Esau Hoff MD [address] [facility] [address] [place] [address] Pulmonary Function Test Social History Tobacco Use [...] Sex Assigned at Female 11/14/2024 2:54 PM CRIME INVESTIGATOR SPECIAL AGENT Legal Sex Female 11:06 AM CDT [...] hopeless Not at all 01/20/2023 10:02 AM LENORAT Esmer Brennan MA Active Patient Health Questionnaire-2 Score 0 01/20/2023 10:02 AM CDT Kusum Brennan MA Active documented as of this encounter Plan of Treatment Upcoming Encounters Date Type Department Care Team (Latest Contact Info) Description 09/05/2025 1:40 PM CRIME INVESTIGATOR SPECIAL AGENT Office Visit [facility] Family & Internal Medicine [address] [address] [place] [address] [address] [place] [phone] 09/13/2025 7:40 AM CRIME INVESTIGATOR SPECIAL AGENT Office Visit [facility] Family & Internal Medicine [address] [address] [place] [address] [address] [place] [address] 09/17/2025 7:00 AM CRIME INVESTIGATOR SPECIAL AGENT Office Visit [facility] Medical [facility] Orthopedic & Sports Medicine - [place] [address] [place] [address] Merrill Hammond MD [address]70 [place] [address] 10/10/2025 1:40 PM CRIME INVESTIGATOR SPECIAL AGENT Hospital Encounter [facility] Interventional Pain Management [place] [address] [id number] Elizabeth Ryder MD Three [facility] [address] [place] [address] 10/10/2025 1:40 PM CRIME INVESTIGATOR SPECIAL AGENT - 10/10/2025 2:00 PM CRIME INVESTIGATOR SPECIAL AGENT Surgery [facility] Interventional Pain Management [place] [address] [id number] Elizabeth Ryder MD Three [facility] [address] [place] [address] INJECTION TRIGGER POINT 12/27/2025 10:40 AM CRIME INVESTIGATOR SPECIAL AGENT Office Visit [facility] Multispecialty Care - [facility] 3 [facility] [address] [place] [address] Esau Hoff MD 3 [facility] [address] [place] [address] Scheduled Procedures Name Priority Associated Diagnoses Date/Ti me INJECTION TRIGGER POINT Myofascial pain 10/10/2025 1:40 PM CRIME INVESTIGATOR SPECIAL AGENT documented as of this encounter Visit Diagnoses Not on filedocumented in this encounter Additional Health Concerns Infection Onset Date Last Indicated Resolved Time COVID-19 Rule Out 12/13/2023 12/13/202312/13/2023 8:54 AM CRIME INVESTIGATOR SPECIAL AGENT COVID-19 Rule Out 08/30/2024 08/30/2024 08/30/2024 8:14 AM CRIME INVESTIGATOR SPECIAL AGENT COVID-19 Rule Out 11/03/2024 11/03/2024 11/03/2024 10:48 AM CRIME INVESTIGATOR SPECIAL AGENT documented as of this encounter Care Teams Railway Station Manager Relationship Specialty [place] [address] [place] [address] PCP - General PHYSICIAN BOOM PUMP OPERATOR 02/03/21 06/06/23 [place] [address] [address] [place] [address] PCP - General FAMILY PRACTICE 06/07/23 [place] [address] [place] [address] NEUROLOGICAL SURGERY 11/24/21 documented as of this encounter
--- OUTSIDE RECORDS SUMMARY | 2025-08-30 15:37 | XMS_ITS | Encounter Summary ---
Author Organization [facility] Address [address] [place] [address] Care Team Providers Care Machine Maintenance Repairer Name Role Phone Viv Hamm Primary Care Provider [phone] Alberto Avendano MD Unavailable [phone] Kylee Villanueva MD Primary Care Provider [phone] Encounter Details Date Type Department Care Team (Late st Contact Info) Description 08/26/2021 Labs on the Gohart Message Enc [facility] Medical Group Family & Internal Medicine [facility] [address] [place] [address] Viv Hamm [place] [id number] [place] [address] RE: Follow Up/Update Social History Tobacco [...] Sex Assigned at Female 11/14/2024 2:54 PM HAND MODEL Legal Sex Female 11:06 AM CDT Gender [...] (Latest Contact Info) Description 09/05/2025 1:40 PM HAND MODEL Office Visit [facility] Family & Internal Medicine [address] [address] [place] [address] [place] [phone] 09/13/2025 7:40 AM HAND MODEL Office Visit [facility] Family & Internal Medicine [address] [address] [place] [address] [place] [address] [phone] 09/17/2025 7:00 AM HAND MODEL Office Visit [facility] Orthopedic & Sports Medicine [facility] [address] [place] [address] Merrill Hammond MD [address] [place] [address] 10/10/2025 1:40 PM HAND MODEL Hospital Encounter [facility] Interventional Pain [place] [address] [id number] Elizabeth Ryder MD Three [facility] [address] [place], [place] [phone] 10/10/2025 1:40 PM HAND MODEL - 10/10/2025 2:00 PM HAND MODEL Surgery [facility] Interventional Pain Management Center [facility] [place] [address] [id number] Elizabeth Ryder MD Three [facility] [address] [place] [address] INJECTION TRIGGER POINT 12/27/2025 10:40 AM HAND MODEL Office Visit [facility] Medical Group Multispecialty Care - [facility] 3 [facility] [address] [place] [address] Esau Hoff MD 3 [facility] [address] [place] [address] Scheduled Procedures Name Priority Associated Diagnoses Date/Ti me INJECTION TRIGGER POINT Myofascial pain 10/10/2025 1:40 PM HAND MODEL documented as of this encounter Visit Diagnoses Not on filedocumented in this encounter Additional Health Concerns Infection Onset Date Last Indicated Resolved Time COVID-19 Rule Out 12/13/2023 12/13/2023 12/13/2023 8:54 AM HAND MODEL COVID-19 Rule Out 08/30/2024 08/30/2024 08/30/2024 8:14 AM HAND MODEL COVID-19 Rule Out 11/03/2024 11/03/2024 11/03/2024 10:48 AM HAND MODEL documented as of this encounter Care Teams Machine Maintenance Repairer Relationship Specialty [place] [address] [place] [address] PCP - General PHYSICIAN CHIEF INNOVATION OFFICER 02/03/21 06/06/23 [place] [address] [address] [place], [place] [phone] PCP - General FAMILY PRACTICE 06/07/23 [place] [address] [place] [address] NEUROLOGICAL SURGERY 11/24/21 documented as of this encounter
--- OUTSIDE RECORDS SUMMARY | 2025-08-30 15:37 | XMS_ITS | Encounter Summary ---
Author Organization [facility] Address [facility] access hospital[address] [place] [address] Care Team Providers Care Forensic Manager Name Role Phone Viv Hamm Primary Care Provider [phone] Alberto Avendano MD Unavailable [phone] Kylee Villanueva MD Primary Care Provider [phone] Encounter Details Date Type Department Care Team (Late st Contact Info) Description 10/13/2021 Chairish Message Enc [facility] Multispecialty Care - [facility] [address] [facility], [address] [place] [address] Kell, [facility] Provider Results Social History Tobacco Use Types [...] Sex Assigned at Female 11/14/2024 2:54 PM TRACK SERVICE PERSON Legal Sex Female 11:06 AM CDT Gender Identity Female 05/11/2025 1:56 PM CDT Sexual Orientation Not on file COVID-19 Exposure Response Date Recorded In the last month, have you been in contact with someone who was confirmed or suspected to have Coronavirus / COVID-19? No / Unsure 10/16/2021 12:10 PM TRACK SERVICE PERSON documented as of this encounter Plan of Treatment Upcoming Encounters Date Type Department Care Team (Latest Contact Info) Description 09/05/2025 1:40 PM TRACK SERVICE PERSON Office Visit [facility] Medicine [address] [phone] [place] [address] [facility] [address] [place] [address] [phone] 09/13/2025 7:40 AM TRACK SERVICE PERSON Office Visit [facility] [address] [address] [place] [address] [place] [address] 09/17/2025 7:00 AM TRACK SERVICE PERSON Office Visit [facility] Orthopedic & Sports Medicine [facility] [address] [place] [address] Merrill Hammond MD [address] [place] [address] 10/10/2025 1:40 PM TRACK SERVICE PERSON Hospital Encounter [facility] Interventional [place] [address] [id number] Elizabeth Ryder MD Three [facility] [address] [place] [address] 10/10/2025 1:40 PM TRACK SERVICE PERSON - 10/10/2025 2:00 PM TRACK SERVICE PERSON Surgery [facility] Interventional Pain Management Center ONE [facility] [place] [address] [id number] Elizabeth Ryder MD Three [facility] [address] [place] [address] INJECTION TRIGGER POINT 12/27/2025 10:40 AM TRACK SERVICE PERSON Office Visit [facility] Medical Group Multispecialty Care - [facility] [address] [facility] [place] [address] Esau Hoff MD [address] [facility] [address] [place] [address] Scheduled Procedures Name Priority Associated Diagnoses Date/Ti me INJECTION TRIGGER POINT Myofascial pain 10/10/2025 1:40 PM TRACK SERVICE PERSON documented as of this encounter Visit Diagnoses Not on filedocumented in this encounter Additional Health Concerns Infection Onset Date Last Indicated Resolved Time COVID-19 Rule Out 12/13/2023 12/13/2023 12/13/2023 8:54 AM TRACK SERVICE PERSON COVID-19 Rule Out 08/30/2024 08/30/2024 08/30/2024 8:14 AM TRACK SERVICE PERSON COVID-19 Rule Out 11/03/2024 11/03/2024 11/03/2024 10:48 AM TRACK SERVICE PERSON documented as of this encounter Care Teams Forensic Manager Relationship Specialty [place] [address] [place] [address] PCP - General PHYSICIAN HAND ALMOND BLANCHER 02/03/21 06/06/23 [place] [address] [address] [place] [address] PCP - General FAMILY PRACTICE 06/07/23 [place] [address] [place] [address] NEUROLOGICAL SURGERY 11/24/21 documented as of this encounter
--- OUTSIDE RECORDS SUMMARY | 2025-08-30 15:37 | XMS_ITS | Encounter Summary ---
Author Organization [facility] Address [facility] [place] [address] Care Team Providers Care Gut Carrier Name Role Phone Viv Hamm Primary Care Provider [phone] Alberto Avendano MD Unavailable [phone] Kylee Villanueva MD Primary Care Provider [phone] Encounter Details Date Type Department Care Team (Latest Contact Info) Description 05/10/2023 MyChart Message Enc [facility] Medical Group Multispecialty Care - [facility] [address] [facility], [address] [place] [address] Shane Noble MD [address] [place] [address] Vocal Cord Dysfunction/Paresis Social History Tobacco Use [...] Sex Assigned at Female 11/14/2024 2:54 PM ENDODONTICS DENTIST Legal Sex Female 11:06 AM CDT Gender [...] (Latest Contact Info) Description 09/05/2025 1:40 PM ENDODONTICS DENTIST Office Visit [facility] Family & Internal Medicine [address] [address] [place] [address] [address] [place] [address] 09/13/2025 7:40 AM ENDODONTICS DENTIST Office Visit [facility] Family [facility] Internal Medicine [facility] [phone] [place] [phone] [place] [address] [facility] [place] [address] 09/17/2025 7:00 AM ENDODONTICS DENTIST Office Visit [facility] Orthopedic & Sports Medicine [facility] [address] [place] [address] Merrill Hammond MD [address] [place] [address] 10/10/2025 1:40 PM ENDODONTICS DENTIST Hospital Encounter [facility] Interventional Pain [place] [address] [id number] Elizabeth Ryder MD Three [facility] Suite [facility] [place] [address] 10/10/2025 1:40 PM ENDODONTICS DENTIST - 10/10/2025 2:00 PM ENDODONTICS DENTIST Surgery [facility] Interventional Pain [place] [address] [id number] Elizabeth Ryder MD Three [facility] Suite [facility] [place] [address] INJECTION TRIGGER POINT 12/27/2025 10:40 AM ENDODONTICS DENTIST Office Visit [facility] Medical Group Multispecialty Care - [facility] 3 [facility], [address] [place] [address] Esau Hoff MD 3 [facility] [address] [place] [address] Scheduled Procedures Name Priority Associated Diagnoses Date/Ti me INJECTION TRIGGER POINT Myofascial pain 10/10/2025 1:40 PM ENDODONTICS DENTIST documented as of this encounter Visit Diagnoses Not on filedocumented in this encounter Additional Health Concerns Infection Onset Date Last Indicated Resolved Time COVID-19 Rule Out 12/13/2023 12/13/2023 12/13/2023 8:54 AM ENDODONTICS DENTIST COVID-19 Rule Out 08/30/2024 08/30/2024 08/30/2024 8:14 AM ENDODONTICS DENTIST COVID-19 Rule Out 11/03/2024 11/03/2024 11/03/2024 10:48 AM ENDODONTICS DENTIST documented as of this encounter Care Teams Gut Carrier Relationship Specialty [place] [address] [place] [address] PCP - General PHYSICIAN CLOTH TEARER 02/03/21 06/06/23 [place] [address] [facility] [address] [place] [address] PCP - General FAMILY PRACTICE 06/07/23 [place] [address] [facility] [place] [address] NEUROLOGICAL SURGERY 11/24/21 documented as of this encounter
--- OUTSIDE RECORDS SUMMARY | 2025-08-30 15:37 | XMS_ITS | Encounter Summary ---
Author Organization [facility] Address [address] [place] [address] Care Team Providers Care Legal Librarian Name Role Phone Alberto Avendano MD Unavailable Kylee Villanueva MD Primary Care Provider [phone] Encounter Details Date Type Department Care Team (Late st Contact Info) Description 09/05/2023 Circle 1 Network Message Enc [facility] Interventional Pain Management [place] [address] [phone] Concha Albert NP 3 [facility] [address] [place] [address] [phone] (Work) Insurance appeal Social History [...] Sex Assigned at Female 11/14/2024 2:54 PM SOCIAL WORK COORDINATOR Legal Sex Female 11:06 AM CDT Gender Identity Female 05/11/2025 1:56 PM CDT Sexual Orientation Not on file documented as of this encounter Plan of Treatment Upcoming Encounters Date Type Department Care Team (Latest Contact Info) Description 09/05/2025 1:40 PM SOCIAL WORK COORDINATOR Office Visit [facility] Family & Internal Medicine [address] [phone] [place] [address] [address] [place] [address] [phone] 09/13/2025 7:40 AM SOCIAL WORK COORDINATOR Office Visit [facility] Family & Internal Medicine [address] [phone] [place] [address] [place] [address] 09/17/2025 7:00 AM SOCIAL WORK COORDINATOR Office Visit [facility] Orthopedic & Sports Medicine [facility] [address] [place] [address] Merrill Hammond MD [address] [place] [address] 10/10/2025 1:40 PM SOCIAL WORK COORDINATOR Hospital Encounter [facility] Interventional Pain Management [place] [address] [id number] Elizabeth Ryder MD Three [facility] [address] [place] [address] 10/10/2025 1:40 PM SOCIAL WORK COORDINATOR - 10/10/2025 2:00 PM SOCIAL WORK COORDINATOR Surgery [facility] Interventional Pain Management Center ONE [place] [address] [id number] Elizabeth Ryder MD Three [facility] [address] [place] [address] INJECTION TRIGGER POINT 12/27/2025 10:40 AM SOCIAL WORK COORDINATOR Office Visit [facility] Medical Group Multispecialty Care - [facility] [address] [facility] [address] [place] [address] Esau Hoff MD 3 [facility] [address] [place] [address] Scheduled Procedures Name Priority Associated Diagnoses Date/Ti me INJECTION TRIGGER POINT Myofascial pain 10/10/2025 1:40 PM SOCIAL WORK COORDINATOR documented as of this encounter Visit Diagnoses Not on filedocumented in this encounter Additional Health Concerns Infection Onset Date Last Indicated Resolved Time COVID-19 Rule Out 12/13/2023 12/13/2023 12/13/2023 8:54 AM SOCIAL WORK COORDINATOR COVID-19 Rule Out 08/30/2024 08/30/2024 08/30/2024 8:14 AM SOCIAL WORK COORDINATOR COVID-19 Rule Out 11/03/2024 11/03/2024 11/03/2024 10:48 AM SOCIAL WORK COORDINATOR documented as of this encounter Care Teams Legal Librarian Relationship Specialty Start [place] [address] [address] [place] [address] PCP - General FAMILY PRACTICE 06/07/23 Alberto Avendano MD NEUROLOGICAL SURGERY 11/24/21 documented as of this encounter
--- OUTSIDE RECORDS SUMMARY | 2025-08-30 15:37 | XMS_ITS | Encounter Summary ---
Author Organization [facility] Address [address] [place] [address] Care Team Providers Care Unit Manager Name Role Phone Alberto Avendano MD Unavailable [phone] Kylee Villanueva MD Primary Care Provider [phone] Encounter Details Date Type Department Care Team (Late st Contact Info) Description 08/17/2023 Retevo Message Enc [facility] Interventional [place] [address] [phone] Concha Albert NP 3 [facility] [address] [place] [address] [phone] (Work) Injection denied by insurance [...] Sex Assigned at Female 11/14/2024 2:54 PM CABIN EQUIPMENT SUPERVISOR Legal Sex Female 11:06 AM CDT Gender Identity Female 05/11/2025 1:56 PM CDT Sexual Orientation Not on file documented as of this encounter Plan of Treatment Upcoming Encounters Date Type Department Care Team (Latest Contact Info) Description 09/05/2025 1:40 PM CABIN EQUIPMENT SUPERVISOR Office Visit [facility] Family & Internal Medicine [address] [phone] [place] [address] [place] [address] [phone] 09/13/2025 7:40 AM CABIN EQUIPMENT SUPERVISOR Office Visit [facility] Family & Internal Medicine [address] [phone] [place] [address] [place] [address] [phone] 09/17/2025 7:00 AM CABIN EQUIPMENT SUPERVISOR Office Visit [facility] Orthopedic & Sports Medicine [facility] [address] [place] [address] Merrill Hammond MD [address] [place] [address] 10/10/2025 1:40 PM CABIN EQUIPMENT SUPERVISOR Hospital Encounter [facility] Interventional Pain [place] [address] [id number] Elizabeth Ryder MD Three [facility] [address] [place] [address] 10/10/2025 1:40 PM CABIN EQUIPMENT SUPERVISOR - 10/10/2025 2:00 PM CABIN EQUIPMENT SUPERVISOR Surgery [facility] Interventional Pain Management Center ONE [facility] [place] [address] [id number] Elizabeth Ryder MD Three [facility] [address] [place] [address] INJECTION TRIGGER POINT 12/27/2025 10:40 AM CABIN EQUIPMENT SUPERVISOR Office Visit [facility] Medical Group Multispecialty Care - [facility] [address] [facility] [address] [place] [address] Esau Hoff MD 3 [facility] [address] [place] [address] Scheduled Procedures Name Priority Associated Diagnoses Date/Ti me INJECTION TRIGGER POINT Myofascial pain 10/10/2025 1:40 PM CABIN EQUIPMENT SUPERVISOR documented as of this encounter Visit Diagnoses Not on filedocumented in this encounter Additional Health Concerns Infection Onset Date Last Indicated Resolved Time COVID-19 Rule Out 12/13/2023 12/13/2023 12/13/2023 8:54 AM CABIN EQUIPMENT SUPERVISOR COVID-19 Rule Out 08/30/2024 08/30/2024 08/30/2024 8:14 AM CABIN EQUIPMENT SUPERVISOR COVID-19 Rule Out 11/03/2024 11/03/2024 11/03/2024 10:48 AM CABIN EQUIPMENT SUPERVISOR documented as of this encounter Care Teams Unit Manager Relationship Specialty Start [place] [address] [place] [address] PCP - General FAMILY PRACTICE 06/07/23 Alberto Avendano MD NEUROLOGICAL SURGERY 11/24/21 documented as of this encounter
--- OUTSIDE RECORDS SUMMARY | 2025-08-30 15:37 | XMS_ITS | Encounter Summary ---
Author Organization [facility] Address [facility] [place] [address] Care Team Providers Care Dairy Inspector Name Role Phone Viv Hamm Primary Care Provider [phone] Alberto Avendano MD Unavailable [phone] Kylee Villanueva MD Primary Care Provider [phone] Encounter Details Date Type Department Care Team (Late st Contact Info) Description 10/01/2021 Ini3 Digitalhart Message Enc [facility] Medical Group Family & Internal Medicine [facility] [address] [place] [address] [place] Hamm [place] [id number] [place] [address] Should I keep Neurologist Appointment Social [...] Sex Assigned at Female 11/14/2024 2:54 PM GOLF TECHNICIAN Legal Sex Female 11:06 AM CDT Gender Identity Female 05/11/2025 1:56 PM CDT Sexual Orientation Not on file COVID-19 Exposure Response Date Recorded In the last month, have you been in contact with someone who was confirmed or suspected to have Coronavirus / COVID-19? No / Unsure 10/03/2021 7:12 AM GOLF TECHNICIAN documented as of this encounter Plan of Treatment Upcoming Encounters Date Type Department Care Team (Latest Contact Info) Description 09/05/2025 1:40 PM GOLF TECHNICIAN Office Visit [facility] Family & Internal Medicine [address] [phone] [place] [address] [address] [place] [address] [phone] 09/13/2025 7:40 AM GOLF TECHNICIAN Office Visit [facility] Family & Internal Medicine [address] [phone] [place] [address] [address] [place] [address] [phone] 09/17/2025 7:00 AM GOLF TECHNICIAN Office Visit [facility] Orthopedic & Sports Medicine [facility] [address] [place] [address] Merrill Hammond MD [address] [place] [address] 10/10/2025 1:40 PM GOLF TECHNICIAN Hospital Encounter [facility] Interventional Pain [place] [address] [id number] Elizabeth Ryder MD Three [facility] [address] [place], [place] [address] 10/10/2025 1:40 PM GOLF TECHNICIAN - 10/10/2025 2:00 PM GOLF TECHNICIAN Surgery [facility] Interventional Pain [place] [address] [id number] Elizabeth Ryder MD Three [facility] [address] [place] [address] INJECTION TRIGGER POINT 12/27/2025 10:40 AM GOLF TECHNICIAN Office Visit [facility] Medical Group Multispecialty Care - [facility] 3 [facility] [address] [place] [address] Esau Hoff MD 3 [facility] [address] [place] [address] Scheduled Procedures Name Priority Associated Diagnoses Date/Ti me INJECTION TRIGGER POINT Myofascial pain 10/10/2025 1:40 PM GOLF TECHNICIAN documented as of this encounter Visit Diagnoses Not on filedocumented in this encounter Additional Health Concerns Infection Onset Date Last Indicated Resolved Time COVID-19 Rule Out 12/13/2023 12/13/2023 12/13/2023 8:54 AM GOLF TECHNICIAN COVID-19 Rule Out 08/30/2024 08/30/2024 08/30/2024 8:14 AM GOLF TECHNICIAN COVID-19 Rule Out 11/03/2024 11/03/2024 11/03/2024 10:48 AM GOLF TECHNICIAN documented as of this encounter Care Teams Dairy Inspector Relationship Specialty [place] [address] [place] [address] PCP - General PHYSICIAN DECORATOR INSPECTOR 02/03/21 06/06/23 [place] [address] [address] [place], [place] [phone] PCP - General FAMILY PRACTICE 06/07/23 [place] [address] [place] [address] NEUROLOGICAL SURGERY 11/24/21 documented as of this encounter
--- OUTSIDE RECORDS SUMMARY | 2025-08-30 15:38 | XMS_ITS | Patient Health Record ---
Author Organization Formerly [facility], 1928–1983 [facility] [place] ([address]) Address [address] [place] [address] Care Team Providers Care Nurse'S Assistant Name Role Phone Kylee Villanueva Primary Care Provider UnavailAraceli Thurston Unavailable [phone] Viv Hamm Unavailable Unavailable Allergies Allergen (clinical drug ingredient) Drug/Non Drug Allergy documented on EMR Reaction Allergy Type Onset Date Status Sulfamethoxazole rash Drug Allergy Active clindamycin Clindamycin Unknown Drug Allergy Act martha Results Component Value Reference Range Notes SED RATE BY DUKE PERRY Reviewed date:09/14/2024 02:35:46 PM Interpretation:Normal Performing Lab:[email or web address], [facility], [address] [place], [address] Akbar Gore MD Notes/Report: NON-FASTING; NON-FASTING; NON-FASTING SED RATE BY DUKE CASTRO 17 < OR = 30 mm/h CBC (INCLUDES DIFF/PLT) Reviewed date:09/14/2024 02:37:42 PM Interpretation:Normal Performing Lab:[email or web address], [address] [place], [address] Akbar Gore MD Notes/Report: NON-FASTING; NON-FASTING; NON-FASTING [...] MPV 9.8 7.5-12.5 fL ABSOLUTE NEUTROPHILS 3596 6181-3570 cells/uL ABSOLUTE LYMPHOCYTES 3825 320-0218 cells/uL ABSOLUTE MONOCYTES 371 200-950 cells/uL ABSOLUTE EOSINOPHILS 58 15-500 cells/uL ABSOLUTE BASOPHILS 29 0-200 cells/uL NEUTROPHILS 62 LYMPHOCYTES 30.1 MONOCYTES 6.4 EOSINOPHILS 1.0 BASOPHILS 0.5 TSH W/REFLEX TO FT4 Reviewed date:09/14/2024 02:35:59 PM Interpretation:Normal Performing Lab:[facility], [address] [place], [address] Akbar Gore MD Notes/Report: NON-FASTING; NON-FASTING; NON-FASTING TSH W/REFLEX TO FT4 1.08 Reference Range > or = 20 Years 0.40-4.50 Ranges First trimester 0.26-2.66 Second trimester 0.55-2.73 Third trimester 0.43-2.91 TRYPTASE Reviewed date:09/14/2024 02:36:14 PM Interpretation:Normal Performing Lab:[facility], [address], [place], [address] Dayne Tristan M.D.,PhD Notes/Report: NON-FASTING; NON-FASTING; NON-FASTING TRYPTASE 4.3 <11.0 mcg/L The Tryptase test, fluorescent enzyme immunoassay (FEIA), measures both the Alpha and Beta forms of Tryptase. Measuring both forms of Tryptase increases sensitivity for the diagnosis of mastocytosis, and mast cell degranulation as a cause of anaphylaxis. Reason For Referral No Information Medications Medication SIG (Take, Route, Frequency, Duration) Notes Start Date End Date Status Levocetirizine Dihydrochloride 5 MG 2 tabs orally twice a day; Duration: 90 days Active Benazepril-hydroCHLOR Othiazide 10-12.5 MG 2 tablets Orally Once a day *Please review and pick correct strength-formula tion from nubelo options. If intended option is not shown, discontinue and re-order from Quick Search* Active Montelukast Sodium 10 MG 1 tablet Orally Once a day; Duration: 90 days Active Singulair 10 MG TAKE 1 TABLET ONCE DAILY; Duration: 90 Active Albuterol Sulfate HFA 108 (90 Base) MCG/ACT 2-4 puffs orally every 4-6 hours; Duration: 30 day(s) Not-Taking EPINEPHrine 0.3 MG/0.3ML as directed Injection as needed; Duration: 30 days Active Omeprazole 40 MG 1 cap(s) orally once a day Active tiZANidine HCl 2 MG 2 tab(s) orally every 8 hours; Duration: 30 day(s) Active NASAL WASHES N/A as directed intranasally as needed; Duration: 30 Active Pepcid 40 MG 1 tab(s) orally once a day (at bedtime) Active Flonase Allergy Relief 50 MCG/ACT 2 spray(s) in each nostril once a day; Duration: 90 days Active Gabapentin *Please review and pick correct strength-formula tion from nubelo options. If intended option is not shown, discontinue and re-order from Quick Search* Active Famotidine 40 MG 1 tablet Orally Twice a day; Duration: 30 days Active Immunizations Vaccine Route Administration Date Status [...] Status Risk Notes Problem Shortness of breath (494388661) Shortness of breath (R06.02) Active confirmed Problem Wheezing (13915567) Wheezing (R06.2) Active confirmed Problem Idiopathic urticaria (94124336) Idiopathic urticaria (L50.1) Active confirmed Problem Common cold (66635311) Acute nasopharyngitis [common cold] (J00) Active confirmed Problem Allergic rhinitis (00364889) Other allergic rhinitis (J30.89) Active confirmed Problem Chronic sinusitis (13968740) Chronic sinusitis, unspecified (J32.9) Active confirmed Problem Dermatitis (453202153) Dermatitis, unspecified (L30.9) Active confirmed Problem Food allergy (264469953) Allergy to other foods (Z91.018) Active confirmed Problem Allergic rhinitis caused by pollen (disorder) (46461378) Allergic rhinitis due to pollen (J30.1) Active confirmed Problem Allergic rhinitis caused by animal hair and dander (667619356237318 ) Allergic rhinitis due to animal (cat) (dog) hair and dander (J30.81) Active confirmed Problem Chronic sinusitis (00347367) Chronic sinusitis, unspecified (J32.9) Active confirmed Problem Allergy to penicillin (62434637) Allergy status to penicillin (Z88.0) Active confirmed Problem Allergy to sulfonamides (30801424) Allergy status to sulfonamides status (Z88.2) Active confirmed Problem Allergy to sulfonamides (42365593) Allergy status to sulfonamides (Z88.2) Active confirmed Vital Signs Oximetry 99 % 10/04/2024 Blood pressure diastolic 79 mm Hg 10/04/2024 Height 56 in 10/04/2024 Blood pressure systolic 137 mm Hg 10/04/2024 Weight 177.8 lbs 10/04/2024 BMI 39.86 kg/m2 10/04/2024 Encounters Encounter Location Date Provider Diagnosis [facility] [address] [address] 10/04/2024 Araceli Bishop Chronic sinusitis, unspecified J32.9 ; Idiopathic urticaria L50.1 ; Allergic rhinitis due to pollen J30.1 ; Other diseases of vocal cords J38.3 ; Allergy to other foods Z91.018 ; Allergic rhinitis due to animal (cat) (dog) hair and dander J30.81 ; Other allergic rhinitis J30.89 and Allergy status to sulfonamides Z88.2 [facility] [address] [place] [phone] 09/06/2024 Araceli Bishop Chronic sinusitis, unspecified J32.9 ; Idiopathic urticaria L50.1 ; Allergic rhinitis due to pollen J30.1 ; Other diseases of vocal cords J38.3 ; Allergy to other foods Z91.018 ; Allergic rhinitis due to animal (cat) (dog) hair and dander J30.81 ; Other allergic rhinitis J30.89 and Allergy status to sulfonamides Z88.2 [facility] [address] [place] [phone] 03/19/2025 Araceli Bishop [address] [address] 10/10/2024 Araceli Bishop Allergic rhinitis du e to pollen J30.1 and Idiopathic urticaria L50.[address] [address] 10/04/2024 Araceli Bishop [address] [address] 09/04/2024 Araceli Bishop [address] [address] 11/08/2024 Araceli Bishop [address] [address] 09/24/2024 Araceli Bishop [address] [address] 09/11/2024 Araceli Bishop [address] [address] 09/07/2024 Araceli Bishop Assessments Encounter Date Diagnosis (ICD Code) Assessment Notes Treatment Notes Treatment Clinical Notes Section Notes 09/06/2024 Idiopathic urticaria (ICD-10 - L50.1) Unclear [...] congestion. Good control with above medications. 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 She is following with [facility] and working with physical therapy and speech therapy. Spirometry and CXR were normal. She is now off all inhalers. 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 She is following with [facility] and working with physical therapy and speech therapy. Spirometry and CXR were normal. She is now off all inhalers. 10/04/2024 Allergy to other foods (ICD-10 - Z91.018) appears to have sulfite sensitivity and recommend avoiding problematic food 09/06/2024 Allergy to other foods (ICD-10 - Z91.018) appears to have sulfite sensitivity and recommend avoiding problematic food 09/06/2024 Allergic rhinitis due to animal (cat) (dog) hair and dander (ICD-10 - J30.81) 10/04/2024 Allergic rhinitis due to animal (cat) (dog) hair and dander (ICD-10 - J30.81) 10/04/2024 Other allergic rhinitis (ICD-10 - J30.89) 09/06/2024 Other allergic rhinitis (ICD-10 - J30.89) 09/06/2024 Allergy status to sulfonamides (ICD-10 - Z88.2) skin testing is not available for Bactrim. Recommend continued avoidance 10/04/2024 Allergy status to sulfonamides (ICD-10 - Z88.2) skin testing is not available for Bactrim. Recommend continued avoidance 07/11/2025 Other 08/14/2025 Other 09/06/2024 Other 10/04/2024 Other Plan Of Treatment Pending Test Test Name Order Date X ray : Chest 01/04/2023 Next Appt Details Provider Name:Araceli worley, 09/11/2025 08:45:00 AM, [facility], [address], [place], [address], Insurance Providers Payer Name Payer Address Payer Phone Subscriber Number Group Number Insured Name Patient Relationship to Insured Coverage Start Date Coverage End Date [facility] [address] [place] [phone] [id number] Ashok, Andres Self - patient is the insured Medical (General) History Medical History History ICD [...]
--- OUTSIDE RECORDS SUMMARY | 2025-08-30 15:38 | XMS_ITS | Encounter Summary ---
Author Organization [facility] Address [address] [place] [address] Care Team Providers Care Pantograph Machine Set Up Operator Name Role Phone Alberto Avendano MD Unavailable [phone] Kylee Villanueva MD Primary Care Provider [phone] Encounter Details Date Type Department Care Team (Late st Contact Info) Description 11/30/2024 reBouncest Message Enc [facility] Medical Group Orthopedic & Sports Medicine - [place] [address] [place] [address] [phone] Reynaldo Bunch MD [address] [place] [address] Changes Social History Tobacco Use Types Packs/Day [...] Sex Assigned at Female 11/14/2024 2:54 PM RADIOLOGY TECHNICIAN Legal Sex Female 11:06 AM CDT Gender Identity Female 05/11/2025 1:56 PM CDT Sexual Orientation Not on file documented as of this encounter Plan of Treatment Upcoming Encounters Date Type Department Care Team (Latest Contact Info) Description 09/05/2025 1:40 PM RADIOLOGY TECHNICIAN Office Visit [facility] Family & Internal Medicine [address] [phone] [place] [address] [place] [phone] 09/13/2025 7:40 AM RADIOLOGY TECHNICIAN Office Visit [facility] Family & Internal Medicine [address] [phone] [place] [address] [place] [address] 09/17/2025 7:00 AM RADIOLOGY TECHNICIAN Office Visit [facility] Orthopedic & Sports Medicine [facility] [address] [place] [address] Merrill Hammond MD [address] [place] [address] 10/10/2025 1:40 PM RADIOLOGY TECHNICIAN Hospital Encounter [facility] Interventional [place] [address] [id number] Elizabeth Ryder MD Three [facility] [address] [place] [address] 10/10/2025 1:40 PM RADIOLOGY TECHNICIAN - 10/10/2025 2:00 PM RADIOLOGY TECHNICIAN Surgery [facility] [place] [address] [id number] Elizabeth Ryder MD Three [facility] [address] [place] [address] INJECTION TRIGGER POINT 12/27/2025 10:40 AM RADIOLOGY TECHNICIAN Office Visit [facility] Medical Group Multispecialty Care - [facility] [address] [facility] [address] [place] [address] Esau Hoff MD [address] [facility] [address] [place] [address] Scheduled Procedures Name Priority Associated Diagnoses Date/Ti me INJECTION TRIGGER POINT Myofascial pain 10/10/2025 1:40 PM RADIOLOGY TECHNICIAN documented as of this encounter Visit Diagnoses Not on filedocumented in this encounter Care Teams Pantograph Machine Set Up Operator Relationship Specialty Start [place] [address] [facility] [place] [address] PCP - General FAMILY PRACTICE 06/07/23 Alberto Avendano MD NEUROLOGICAL SURGERY 11/24/21 documented as of this encounter
--- OUTSIDE RECORDS SUMMARY | 2025-08-30 15:38 | XMS_ITS | Encounter Summary ---
Author Organization [facility] Address [address] [place] [address] Care Team Providers Care Lab Clerk Name Role Phone Alberto Avendano MD Unavailable [phone] Kylee Villanueva MD Primary Care Provider [phone] Encounter Details Date Type Department Care Team (Late st Contact Info) Description 01/09/[address] [facility] Medical Group Family & Internal Medicine [address] [address] Kylee Villanueva MD [address] [place] [address]. [address] [place] [address] Prescription Social History Tobacco Use [...] Sex Assigned at Female 11/14/2024 2:54 PM CASHIER OR CHECKER STOCK CLERK Legal Sex Female 11:06 AM CDT Gender Identity Female 05/11/2025 1:56 PM CDT Sexual Orientation Not on file documented as of this encounter Plan of Treatment Upcoming Encounters Date Type Department Care Team (Latest Contact Info) Description 09/05/2025 1:40 PM CASHIER OR CHECKER STOCK CLERK Office Visit [facility] Family & Internal Medicine [address] [phone] [place] [address] [place] [phone] 09/13/2025 7:40 AM CASHIER OR CHECKER STOCK CLERK Office Visit [facility] Family & Internal Medicine [address] [phone] [place] [address] [place] [address] 09/17/2025 7:00 AM CASHIER OR CHECKER STOCK CLERK Office Visit [facility] Orthopedic & Sports Medicine [facility] [address] [place] [address] Merrill Hammond MD [address] [place] [address] 10/10/2025 1:40 PM CASHIER OR CHECKER STOCK CLERK Hospital Encounter [facility] Interventional [place] [address] [id number] Elizabeth Ryder MD Three [facility] [address] [place] [address] 10/10/2025 1:40 PM CASHIER OR CHECKER STOCK CLERK - 10/10/2025 2:00 PM CASHIER OR CHECKER STOCK CLERK Surgery [facility] Interventional [place] [address] [id number] Elizabeth Ryder MD Three [facility] [address] [place] [address] INJECTION TRIGGER POINT 12/27/2025 10:40 AM CASHIER OR CHECKER STOCK CLERK Office Visit [facility] Medical Group Multispecialty Care - [facility] [address] [facility] [place] [address] Esau Hoff MD 3 [facility] [address] [place] [address] Scheduled Procedures Name Priority Associated Diagnoses Date/Ti me INJECTION TRIGGER POINT Myofascial pain 10/10/2025 1:40 PM CASHIER OR CHECKER STOCK CLERK documented as of this encounter Visit Diagnoses Diagnosis Primary hypertension Unspecified essential hypertension Myofascial pain Mylagia and myositis, unspecified documented in this encounter Additional Health Concerns Assessment Noted Time PHQ-9 Depression Total Score: 2 12/11/19 25 1:50 PM CASHIER OR CHECKER STOCK CLERK documented as of this encounter Care Teams Lab Clerk Relationship Specialty Start [place] [address] [facility] [place] [address] PCP - General FAMILY PRACTICE 06/07/23 Alberto Avendano MD NEUROLOGICAL SURGERY 11/24/21 documented as of this encounter
--- OUTSIDE RECORDS SUMMARY | 2025-08-30 15:38 | XMS_ITS | Encounter Summary ---
Author Organization [facility] Address [facility] [place] [address] Care Team Providers Care Grey Iron Molder Name Role Phone Viv Hamm Primary Care Provider [phone] Alberto Avendano MD Unavailable [phone] Kylee Villanueva MD Primary Care Provider [phone] Encounter Details Date Type Department Care Team (Late st Contact Info) Description 04/29/2021 Blottrhart Message Enc [facility] Medical Group General Surgery [address], [address] [place] [address] Tracy Godoy MD [address] [place] [address] [address] Question Social History Tobacco Use Types Packs/Day [...] Sex Assigned at Female 11/14/2024 2:54 PM CASE MANAGERS Legal Sex Female 11:06 AM CDT Gender Identity Female 05/11/2025 1:56 PM CDT Sexual Orientation Not on file documented as of this encounter Plan of Treatment Upcoming Encounters Date Type Department Care Team (Latest Contact Info) Description 09/05/2025 1:40 PM CASE MANAGERS Office Visit [facility] Family & Internal Medicine [address] [phone] [place] [address] [place] [phone] 09/13/2025 7:40 AM CASE MANAGERS Office Visit [facility] Family & Internal Medicine [address] [phone] [place] [address] [place] [address] 09/17/2025 7:00 AM CASE MANAGERS Office Visit [facility] Orthopedic & Sports Medicine - [place] [address] [place] [address] Merrill Hammond MD [address] [place] [address] 10/10/2025 1:40 PM CASE MANAGERS Hospital Encounter [facility] Interventional Pain Management [place] [address] [id number] Elizabeth Ryder MD Three [facility] [address] [place] [address] 10/10/2025 1:40 PM CASE MANAGERS - 10/10/2025 2:00 PM CASE MANAGERS Surgery [facility] Interventional [facility] [place] [address] [id number] Elizabeth Ryder MD Three [facility] [address] [place] [address] INJECTION TRIGGER POINT 12/27/2025 10:40 AM CASE MANAGERS Office Visit [facility] Medical Group Multispecialty Care - [facility] [address] [facility] [address] [place] [address] Esau Hoff MD 3 [facility] [address] [place] [address] Scheduled Procedures Name Priority Associated Diagnoses Date/Ti me INJECTION TRIGGER POINT Myofascial pain 10/10/2025 1:40 PM CASE MANAGERS documented as of this encounter Visit Diagnoses Not on filedocumented in this encounter Additional Health Concerns Infection Onset Date Last Indicated Resolved Time COVID-19 Rule Out 12/13/2023 12/13/2023 12/13/2023 8:54 AM CASE MANAGERS COVID-19 Rule Out 08/30/2024 08/30/2024 08/30/2024 8:14 AM CASE MANAGERS COVID-19 Rule Out 11/03/2024 11/03/2024 11/03/2024 10:48 AM CASE MANAGERS documented as of this encounter Care Teams Grey Iron Molder Relationship Specialty [place] [address] [place] [address] PCP - General PHYSICIAN WET CHEMISTRY ANALYST 02/03/21 06/06/23 [place] [address] [place] [address] PCP - General FAMILY PRACTICE 06/07/23 [place] [address] [place] [address] NEUROLOGICAL SURGERY 11/24/21 documented as of this encounter
--- OUTSIDE RECORDS SUMMARY | 2025-08-30 15:38 | XMS_ITS | Encounter Summary ---
Author Organization [facility] Address [address] [place] [address] Care Team Providers Care Tunnel Kiln Operator Name Role Phone Alberto Avendano MD Unavailable [phone] Kylee Villanueva MD Primary Care Provider [phone] Encounter Details Date Type Department Care Team (Late st Contact Info) Description 01/22/2025 The Fan Machinet Message Enc [facility] Medical Group Orthopedic & Sports Medicine - [place] [address] [place] [address] Merrill Hammond MD [address] [place] [address] Earlier appt Social History Tobacco Use Types [...] Sex Assigned at Female 11/14/2024 2:54 PM PHYSICS PROFESSOR Legal Sex Female 11:06 AM CDT Gender Identity Female 05/11/2025 1:56 PM CDT Sexual Orientation Not on file documented as of this encounter Plan of Treatment Upcoming Encounters Date Type Department Care Team (Latest Contact Info) Description 09/05/2025 1:40 PM PHYSICS PROFESSOR Office Visit [facility] Family & Internal Medicine [address] [phone] [place] [address] [place] [phone] 09/13/2025 7:40 AM PHYSICS PROFESSOR Office Visit [facility] Family & Internal [address] [phone] [place] [address] [place] [address] 09/17/2025 7:00 AM PHYSICS PROFESSOR Office Visit [facility] Orthopedic & Sports Medicine [facility] [address] [place] [address] Merrill Hammond MD [address] [place] [address] 10/10/2025 1:40 PM PHYSICS PROFESSOR Hospital Encounter [facility] Interventional [place] [address] [id number] Elizabeth Ryder MD Three [facility] [address] [place] [address] 10/10/2025 1:40 PM PHYSICS PROFESSOR - 10/10/2025 2:00 PM PHYSICS PROFESSOR Surgery [facility] Interventional [place] [address] [id number] Elizabeth Ryder MD Three [facility] [address] [place] [address] INJECTION TRIGGER POINT 12/27/2025 10:40 AM PHYSICS PROFESSOR Office Visit [facility] Medical Group Multispecialty Care - [facility] [address] [facility] [place] [address] Esau oHff MD 3 [facility] [address] [place] [address] Scheduled Procedures Name Priority Associated Diagnoses Date/Ti me INJECTION TRIGGER POINT Myofascial pain 10/10/2025 1:40 PM PHYSICS PROFESSOR documented as of this encounter Visit Diagnoses Not on filedocumented in this encounter Additional Health Concerns Assessment Noted Time PHQ-9 Depression Total Score: 2 12/11/19 25 1:50 PM PHYSICS PROFESSOR documented as of this encounter Care Teams Tunnel Kiln Operator Relationship Specialty Start [place] [address] [address] [facility] [place] [address] PCP - General FAMILY PRACTICE 06/07/23 Alberto Avendano MD NEUROLOGICAL SURGERY 11/24/21 documented as of this encounter
--- OUTSIDE RECORDS SUMMARY | 2025-08-30 15:38 | XMS_ITS | Encounter Summary ---
Author Organization [facility] Address [facility] [place] [address] Care Team Providers Care Keysmith Name Role Phone Viv Hamm Primary Care Provider [phone] Alberto Avendano MD Unavailable [phone] Kylee Villanueva MD Primary Care Provider [phone] Encounter Details Date Type Department Care Team (Late st Contact Info) Description 04/08/2021 Inari Medicalt Message Enc [facility] Medical Group General Surgery [address], [address] [place] [address] Tracy Godoy MD [address] [place] [address] [address] Other Social History Tobacco Use Types Packs/Day [...] Sex Assigned at Female 11/14/2024 2:54 PM MOPHEAD SEWER Legal Sex Female 11:06 AM CDT [...] (Latest Contact Info) Description 09/05/2025 1:40 PM MOPHEAD SEWER Office Visit [facility] Family & Internal Medicine [address] [phone] [place] [address] [place] [address] [phone] 09/13/2025 7:40 AM MOPHEAD SEWER Office Visit [facility] Family & Internal Medicine [address] [phone] [place] [address] [place] [address] [phone] 09/17/2025 7:00 AM MOPHEAD SEWER Office Visit [facility] Orthopedic & Sports Medicine [facility] [address] [place] [address] Merrill Hammond MD [address] [place] [address] 10/10/2025 1:40 PM MOPHEAD SEWER Hospital Encounter [facility] Interventional [place] [address] [id number] Elizabeth Ryder MD Three [facility] [address] [place] [address] 10/10/2025 1:40 PM MOPHEAD SEWER - 10/10/2025 2:00 PM MOPHEAD SEWER Surgery [facility] Interventional [place] [address] [id number] Elizabeth Ryder MD Three [facility] [address] [place] [address] INJECTION TRIGGER POINT 12/27/2025 10:40 AM MOPHEAD SEWER Office Visit [facility] Medical Group Multispecialty Care - [facility] [address] [facility] [address] [place] [address] Esau Hoff MD 3 [facility] [address] [place] [address] Scheduled Procedures Name Priority Associated Diagnoses Date/Ti me INJECTION TRIGGER POINT Myofascial pain 10/10/2025 1:40 PM MOPHEAD SEWER documented as of this encounter Visit Diagnoses Not on filedocumented in this encounter Additional Health Concerns Infection Onset Date Last Indicated Resolved Time COVID-19 Rule Out 12/13/2023 12/13/2023 12/13/2023 8:54 AM MOPHEAD SEWER COVID-19 Rule Out 08/30/2024 08/30/2024 08/30/2024 8:14 AM MOPHEAD SEWER COVID-19 Rule Out 11/03/2024 11/03/2024 11/03/2024 10:48 AM MOPHEAD SEWER documented as of this encounter Care Teams Keysmith Relationship Specialty [place] [address] [place], [place] [phone] PCP - General PHYSICIAN SKIVER SOCK LININGS 02/03/21 06/06/23 [place] [address] [place], [place] [phone] PCP - General FAMILY PRACTICE 06/07/23 [place] [address] [place] [address] NEUROLOGICAL SURGERY 11/24/21 documented as of this encounter
--- OUTSIDE RECORDS SUMMARY | 2025-08-30 15:38 | XMS_ITS | Encounter Summary ---
Author Organization [facility] Address [address] [place] [address] Care Team Providers Care Wrapper Stitcher Name Role Phone Alberto Avendano MD Unavailable [phone] Kylee Villanueva MD Primary Care Provider [phone] Encounter Details Date Type Department Care Team (Late st Contact Info) Description 02/02/2025 Baifendiant Message Enc [facility] Medical Group Orthopedic & Sports Medicine - [place] [address] [place] [address] Merrill Hammond MD [address] [place] [address] MRIs Social History Tobacco Use Types Packs/Day [...] Sex Assigned at Female 11/14/2024 2:54 PM PIANO BUILDER Legal Sex Female 11:06 AM CDT Gender Identity Female 05/11/2025 1:56 PM CDT Sexual Orientation Not on file documented as of this encounter Plan of Treatment Upcoming Encounters Date Type Department Care Team (Latest Contact Info) Description 09/05/2025 1:40 PM PIANO BUILDER Office Visit [facility] Family & Internal Medicine [address] [phone] [place] [address] [place] [address] [phone] 09/13/2025 7:40 AM PIANO BUILDER Office Visit [facility] Family & Internal Medicine [address] [phone] [place] [address] [place] [address] 09/17/2025 7:00 AM PIANO BUILDER Office Visit [facility] Orthopedic & Sports Medicine [facility] [address] [place] [address] Merrill Hammond MD [address] [place] [address] 10/10/2025 1:40 PM PIANO BUILDER Hospital Encounter [facility] Interventional [place] [address] [id number] Elizabeth Ryder MD Three [facility] [address] [place] [address] 10/10/2025 1:40 PM PIANO BUILDER - 10/10/2025 2:00 PM PIANO BUILDER Surgery [facility] Interventional [place] [address] [id number] Elizabeth Ryder MD Three [facility] [address] [place] [address] INJECTION TRIGGER POINT 12/27/2025 10:40 AM PIANO BUILDER Office Visit [facility] Medical Group Multispecialty Care - [facility] 3 [facility] [address] [place] [address] Esau Hoff MD 3 [facility] [address] [place] [address] Scheduled Procedures Name Priority Associated Diagnoses Date/Ti me INJECTION TRIGGER POINT Myofascial pain 10/10/2025 1:40 PM PIANO BUILDER documented as of this encounter Visit Diagnoses Not on filedocumented in this encounter Additional Health Concerns Assessment Noted Time PHQ-9 Depression Total Score: 2 12/11/19 25 1:50 PM PIANO BUILDER documented as of this encounter Care Teams Wrapper Stitcher Relationship Specialty Start [place] [address] [address] [place] [address] PCP - General FAMILY PRACTICE 06/07/23 Alberto Avendano MD NEUROLOGICAL SURGERY 11/24/21 documented as of this encounter
--- OUTSIDE RECORDS SUMMARY | 2025-08-30 15:38 | XMS_ITS | Encounter Summary ---
Author Organization [facility] Address [address] [place] [address] Care Team Providers Care Corporate Human Resources Manager Name Role Phone Alberto Avendano MD Unavailable [phone] Kylee Villanueva MD Primary Care Provider [phone] Encounter Details Date Type Department Care Team (Late st Contact Info) Description 01/05/2025 DroneDeployt Message Enc [facility] Medical Group Orthopedic & Sports Medicine - [place] [address] [place] [address] Merrill Hammond MD [address] [place] [address] Earlier appt Social History Tobacco Use Types [...] Sex Assigned at Female 11/14/2024 2:54 PM BUTTON BROACHER Legal Sex Female 11:06 AM CDT Gender [...] (Latest Contact Info) Description 09/05/2025 1:40 PM BUTTON BROACHER Office Visit [facility] Family & Internal Medicine [address] [phone] [place] [address] [facility] [address] [place] [address] 09/13/2025 7:40 AM BUTTON BROACHER Office Visit [facility] Family & Internal Medicine [address] [phone] [place] [address] [address] [place] [address] 09/17/2025 7:00 AM BUTTON BROACHER Office Visit [facility] Orthopedic & Sports Medicine [place] [address] [place] [address] Merrill Hammond MD [address] [place] [address] 10/10/2025 1:40 PM BUTTON BROACHER Hospital Encounter [facility] Interventional Pain [place] [address] [id number] Elizabeth Ryder MD Three [facility] [address] [place] [address] 10/10/2025 1:40 PM BUTTON BROACHER - 10/10/2025 2:00 PM BUTTON BROACHER Surgery [facility] Interventional Pain Management [place] [address] [id number] Elizabeth Ryder MD Three [facility] [address] [place] [address] INJECTION TRIGGER POINT 12/27/2025 10:40 AM BUTTON BROACHER Office Visit [facility] Medical Group Multispecialty Care - [facility] [address] [facility] [address] [place] [address] Esau Hoff MD 3 [facility] [address] [place] [address] Scheduled Procedures Name Priority Associated Diagnoses Date/Ti me INJECTION TRIGGER POINT Myofascial pain 10/10/2025 1:40 PM BUTTON BROACHER documented as of this encounter Visit Diagnoses Not on filedocumented in this encounter Additional Health Concerns Assessment Noted Time PHQ-9 Depression Total Score: 2 12/11/19 25 1:50 PM BUTTON BROACHER documented as of this encounter Care Teams Corporate Human Resources Manager Relationship Specialty Start [place] [address] [address] [place] [address] PCP - General FAMILY PRACTICE 06/07/23 Alberto Avendano MD NEUROLOGICAL SURGERY 11/24/21 documented as of this encounter
--- OUTSIDE RECORDS SUMMARY | 2025-08-30 15:38 | XMS_ITS | Encounter Summary ---
Author Organization [facility] Address [address] [place] [address] Care Team Providers Care Supervisor Printing Shop Name Role Phone Alberto Avendano MD Unavailable [phone] Kylee Villanueva MD Primary Care Provider [phone] Encounter Details Date Type Department Care Team (Late st Contact Info) Description 01/04/2025 Tarenat Message Enc [facility] Medical Group Orthopedic & Sports Medicine - [place] [address] [place] [address] [phone] Reynaldo Bunch MD [address] [place] [address] Wrist update Social History Tobacco Use Types [...] Sex Assigned at Female 11/14/2024 2:54 PM TRACTOR MECHANIC HELPER Legal Sex Female 11:06 AM CDT Gender Identity Female 05/11/2025 1:56 PM CDT Sexual Orientation Not on file documented as of this encounter Plan of Treatment Upcoming Encounters Date Type Department Care Team (Latest Contact Info) Description 09/05/2025 1:40 PM TRACTOR MECHANIC HELPER Office Visit [facility] Family & Internal Medicine [address] [phone] [place] [address] [place] [address] [phone] 09/13/2025 7:40 AM TRACTOR MECHANIC HELPER Office Visit [facility] Family & Internal [address] [phone] [place] [address] [place] [address] 09/17/2025 7:00 AM TRACTOR MECHANIC HELPER Office Visit [facility] Orthopedic & Sports Medicine [facility] [address] [place] [address] Merrill Hammond MD [address] [place] [address] 10/10/2025 1:40 PM TRACTOR MECHANIC HELPER Hospital Encounter [facility] Interventional Pain [place] [address] [id number] Elizabeth Ryder MD Three [facility] [address] [place] [address] 10/10/2025 1:40 PM TRACTOR MECHANIC HELPER - 10/10/2025 2:00 PM TRACTOR MECHANIC HELPER Surgery [facility] Interventional Pain Management [place] [address] [id number] Elizabeth Ryder MD Three [facility] [address] [place] [address] INJECTION TRIGGER POINT 12/27/2025 10:40 AM TRACTOR MECHANIC HELPER Office Visit [facility] Medical Group Multispecialty Care - [facility] 3 [facility] [address] [place] [address] Esau Hoff MD 3 [facility] [address] [place] [address] Scheduled Procedures Name Priority Associated Diagnoses Date/Ti me INJECTION TRIGGER POINT Myofascial pain 10/10/2025 1:40 PM TRACTOR MECHANIC HELPER documented as of this encounter Visit Diagnoses Not on filedocumented in this encounter Additional Health Concerns Assessment Noted Time PHQ-9 Depression Total Score: 2 12/11/19 25 1:50 PM TRACTOR MECHANIC HELPER documented as of this encounter Care Teams Supervisor Printing Shop Relationship Specialty Start [place] [address] [facility] [address] [place] [address] PCP - General FAMILY PRACTICE 06/07/23 Alberto Avendano MD NEUROLOGICAL SURGERY 11/24/21 documented as of this encounter
--- OUTSIDE RECORDS SUMMARY | 2025-08-30 15:38 | XMS_ITS | Clinical Summary ---
Author Organization [facility] Address [address] [facility] [place] [address] Care Team Providers Care Design Printing Machine Set Up Operator Name Role Phone Kylee Villanueva MD Primary Care Provider [phone] Source Comments [facility],non-owned Affiliates and Associated Physician Practices is amultiple site organization consisting of ambulatory clinics and hospital sitesin [place], [place], [place] and [place]. This disclosure is being madepursuant to the Care Everywhere program and may not contain all information available regarding this patient. Last updated 18.[facility] Allergies Active Allergy Reactions Criticality Noted Date [...] fluticasone propionate (FLONASE) 50 MCG/ACT nasal spray [place] 2 (two) sprays into the nose at [...] Type Department Care Team Description 08/07/2025 Telephone [facility] Medical [facility] [address] Matthew Bolivar, [address] [address] Anitha Cramer, BOOKMAKER MAP-BOOKING OFFICER Medication Prior Auth Request (xifaxan) 06/08/2025 11:30 AM CDT [place] [facility] [place] [address] Matthew Bolivar, [address] [place] [phone] Anitha Cramer, BOOKMAKER MAP-BOOKING OFFICER Elevated LFTs (Primary Dx); Hepatic steatosis; Fructose [...] st Contact Info) Description 10/09/2025 1:30 PM HONEY PRODUCER [place] [facility] [place] [address] Matthew Bolivar, [address] [place] [address] Fabian Anitha Sel[place], BOOKMAKER [facility] [address] [facility] [address] [place] [address] Health Maintenance Due Date Last [...] - 105 mg/dL 04/10/2024 8:10 AM CDT [facility] Sodium 141 136 - 145 mmol/L 04/10/2024 8:10 AM CDT [facility] Potassium 3.7 3.5 - 5.1 mmol/L 04/10/2024 8:10 AM CDT [facility] Chloride 108(H) 98 - 107 mmol/L 04/10/2024 8:10 AM CDT [facility] CO2 23 22 - 29 mmol/L 04/10/2024 8:10 AM CDT [facility] Calcium 9.7 8.4 - 10.4 mg/dL 04/10/2024 8:10 AM CDT [facility] Anion Gap 10 6 - 16 mmol/L 04/10/2024 8:10 AM CDT [facility] BUN 23 7 - 26 mg/dL 04/10/2024 8:10 AM CDT [facility] Creatinine 0.88 0.57 - 1.11 mg/dL 04/10/2024 8:10 AM CDT [facility] eGFR by CKD-EPI 79(L) >=90 mL/min/1.7 3 m2 04/10/2024 8:10 AM CDT [facility] Blood BLOOD SPECIMEN / Unknown Venipuncture / Unknown 04/10/2024 7:51 AM CDT 04/10/2024 7:54 AM CDT us Janet Ely DO LAB - CHEMISTRY ORDERABLES Nasra l Result Performing Organization Address [facility] Co de Phone Number [facility] [address] [place] [address] * HEPATITIS C AB W/RFLX [...] a test for HCV RNA (test code 52240) is suggested. For additional information please refer to http://education.Piethis.com/faq/KMU70x5 (This link is being provided for informational/ educational purposes only.) Test Performed at: [facility] [address] [place] [address] SHAKIR HOLLIS DO,MPH Blood BLOOD SPECIMEN / Unknown 05/14/2022 2:41 PM CDT 05/14/2022 2:42 PM CDT Anitha Cramer BOOKMAKER MAP-BOOKING OFFICER LAB - CHEMISTRY ORDERAB LES Final Result Performing Organization Address [facility] Co de Phone Number [facility] [address] [place] [address] from Last 3 Months or Most Recently Relevant to Health Maintenance Insurance [facility] Care Teams Design Printing Machine Set Up Operator Relationship Specialty Start [place] [address] [address] PCP - General Family Medicine 01/25/24
--- OUTSIDE RECORDS SUMMARY | 2025-08-30 15:38 | XMS_ITS | Encounter Summary ---
Author Organization [facility] Address [facility] [place] [address] Care Team Providers Care Venipuncturist Name Role Phone Viv Hamm Primary Care Provider [phone] Alberto Avendano MD Unavailable [phone] Kylee Villanueva MD Primary Care Provider [phone] Encounter Details Date Type Department Care Team (Late st Contact Info) Description 04/02/2021 MySongToYouhart Message Enc [facility] Medical Group General Surgery [address], [address] [place] [address] Tracy Godoy MD [address] [place] [address] [address] Other Social History Tobacco Use [...] Sex Assigned at Female 11/14/2024 2:54 PM TEST BORE HELPER Legal Sex Female 11:06 AM CDT [...] (Latest Contact Info) Description 09/05/2025 1:40 PM TEST BORE HELPER Office Visit [facility] Family & Internal Medicine [address] [phone] [place] [address] [place] [address] [phone] 09/13/2025 7:40 AM TEST BORE HELPER Office Visit [facility] Family & Internal Medicine [address] [phone] [place] [address] [place] [phone] 09/17/2025 7:00 AM TEST BORE HELPER Office Visit [facility] Orthopedic & Sports Medicine [facility] [address] [place] [address] Merrill Hammond MD [address] [place] [address] 10/10/2025 1:40 PM TEST BORE HELPER Hospital Encounter [facility] Interventional [place] [address] [id number] Elizabeth Ryder MD Three [facility] [address] [place] [address] 10/10/2025 1:40 PM TEST BORE HELPER - 10/10/2025 2:00 PM TEST BORE HELPER Surgery [facility] Interventional [place] [address] [id number] Elizabeth Ryder MD Three [facility] [address] [place] [address] INJECTION TRIGGER POINT 12/27/2025 10:40 AM TEST BORE HELPER Office Visit [facility] Medical Group Multispecialty Care - [facility] 3 [facility] [address] [place] [address] Esau Hoff MD 3 [facility] [address] [place] [address] Scheduled Procedures Name Priority Associated Diagnoses Date/Ti me INJECTION TRIGGER POINT Myofascial pain 10/10/2025 1:40 PM TEST BORE HELPER documented as of this encounter Visit Diagnoses Not on filedocumented in this encounter Additional Health Concerns Infection Onset Date Last Indicated Resolved Time COVID-19 Rule Out 12/13/2023 12/13/2023 12/13/2023 8:54 AM TEST BORE HELPER COVID-19 Rule Out 08/30/2024 08/30/2024 08/30/2024 8:14 AM TEST BORE HELPER COVID-19 Rule Out 11/03/2024 11/03/2024 11/03/2024 10:48 AM TEST BORE HELPER documented as of this encounter Care Teams Venipuncturist Relationship Specialty [place] [address] [place], [place] [phone] PCP - General PHYSICIAN NURSE DISCHARGE PLANNER 02/03/21 06/06/23 [place] [address] [address] [place], [place] [phone] PCP - General FAMILY PRACTICE 06/07/23 [place] [address] [place] [address] NEUROLOGICAL SURGERY 11/24/21 documented as of this encounter
--- OUTSIDE RECORDS SUMMARY | 2025-08-30 15:38 | XMS_ITS | Encounter Summary ---
Author Organization [facility] Address [facility] [place] [address] Care Team Providers Care Geoscience Technician Name Role Phone Viv Hamm Primary Care Provider [phone] Alberto Avendano MD Unavailable [phone] Kylee Villanueva MD Primary Care Provider [phone] Encounter Details Date Type Department Care Team (Late st Contact Info) Description 03/14/2021 Prep for Procedure [facility] General Surgery [address], [address] [place] [address] Tracy Godoy MD [address] [place] [address] [address] Social History Tobacco Use Types Packs/Day Years [...] Assigned at Female 11/14/2024 2:54 PM RN TELEHEALTH Legal Sex Female 11:06 AM CDT Gender [...] Contact Info) Description 09/05/2025 1:40 PM RN TELEHEALTH Office Visit [facility] Family & Internal Medicine [address] [phone] [place] [address] [place] [address] [phone] 09/13/2025 7:40 AM RN TELEHEALTH Office Visit [facility] Family & Internal Medicine [address] [phone] [place] [address] [place] [address] 09/17/2025 7:00 AM RN TELEHEALTH Office Visit [facility] Orthopedic & Sports Medicine [facility] [address] [place] [address] Merrill Hammond MD [address] [place] [address] 10/10/2025 1:40 PM RN TELEHEALTH Hospital Encounter [facility] Interventional [place] [address] [id number] Elizabeth Ryder MD Three [facility] [address] [place] [address] 10/10/2025 1:40 PM RN TELEHEALTH - 10/10/2025 2:00 PM RN TELEHEALTH Surgery [facility] Interventional Pain [place] [address] [id number] Elizabeth Ryder MD Three [facility] [address] [place] [address] INJECTION TRIGGER POINT 12/27/2025 10:40 AM RN TELEHEALTH Office Visit [facility] Medical Group Multispecialty Care - [facility] [address] [facility] [address] [place] [address] Esau Hoff MD 3 [facility] [address] [place] [address] Scheduled Procedures Name Priority Associated Diagnoses Date/Ti me INJECTION TRIGGER POINT Myofascial pain 10/10/2025 1:40 PM RN TELEHEALTH documented as of this encounter Visit Diagnoses Diagnosis GERD (gastroesophageal reflux disease)- Primary Esophageal reflux Encounter for screening colonoscopy Special screening for malignant neoplasms, colon Myofascial pain Mylagia and myositis, unspecified documented in this encounter Additional Health Concerns Infection Onset Date Last Indicated Resolved Time COVID-19 Rule Out 12/13/2023 12/13/2023 12/13/2023 8:54 AM RN TELEHEALTH COVID-19 Rule Out 08/30/2024 08/30/2024 08/30/2024 8:14 AM RN TELEHEALTH COVID-19 Rule Out 11/03/2024 11/03/2024 11/03/2024 10:48 AM RN TELEHEALTH documented as of this encounter Care Teams Geoscience Technician Relationship Specialty [place] [address] [place] [address] PCP - General PHYSICIAN REINSURANCE ANALYST 02/03/21 06/06/23 [place] [address] [address] [place] [address] PCP - General FAMILY PRACTICE 06/07/23 [place] [address] [place] [address] NEUROLOGICAL SURGERY 11/24/21 documented as of this encounter
--- OUTSIDE RECORDS SUMMARY | 2025-08-30 15:38 | XMS_ITS | Clinical Summary ---
Author Organization [facility] Address [address] [place] [address] Care Team Providers Care Head Wrestling Coach Name Role Phone Shane Noble MD Unavailable [phone] Kylee Villanueva MD Primary Care Provider [phone] Reynaldo Bunch MD Unavailable [phone] Allergies Active Allergy Reactions Criticality Noted [...] 12/26/2024 Assessment & Plan (12/26/2024 8:43 AM COMPUTER SYSTEMS ANALYST): CINTIA with some pain this morning. Now [...] (10/30/2022): Added automatically from request for surgery [id number] ALT (SGPT) level raised 04/10/2022 Calculus of gallbladder with out cholecystitis without obstruction 04/10/2022 Heartburn 03/17/2021 Hypertension 02/26/2021 GERD (gastroesophageal reflux disease) Allergies 02/26/2021 Environmental and seasonal allergies 02/26/2021 Encounters Date Type Department Care Team Description 08/23/2025 Orders Only [facility] Medicine Pathology Outreach [address] [place] [address] Felix Tripathi MD Connective tissue disorder; Chest wall deformity; Joint dislocation 08/14/2025 Orders Only [facility] Medicine Neuro Muscle [address] [facility] Medicine 6th [place] [address] Elian Gray MD Urinary retention (Primary Dx) 08/13/2025 9:07 AM CDT - 08/13/2025 11:59 PM CDT Hospital Encounter [facility] [address] [place] [address] Tachycardia; High risk medication use Discharge Disposition: Discharge to home or self care 08/06/2025 2:00 PM CDT Telemedicine [facility] Pediatric Genetics [facility] 2nd [place] [address] Connective tissue disorder (Primary Dx); Chest wall deformity; Joint dislocation 07/31/2025 10:20 AM CDT Lab [facility] [address] [place] [address] Abnormal urine finding 06/24/2025 Telephone [facility] Pediatric Genetics [facility] 2nd [place] [address] Felix Tripathi MD Med Management (Called to inform Andres that exome sequencing had been approved by a medical superintendent at [facility]. ) 06/19/2025 8:30 AM CDT Therapy [facility] Medicine Physical Therapy [address] [place] [phone] Mariaelena Steve PTA Chronic right shoulder pain (Primary Dx) 06/12/2025 10:00 AM CDT Therapy [facility] Physical Therapy [address] [place] [phone] Mariaelena Steve PTA Chronic right shoulder pain (Primary Dx) 06/05/2025 10:30 AM CDT Therapy [facility] Physical Therapy [address] [place] [phone] Mariaelena Steve PTA Chronic right shoulder pain (Primary Dx) 06/05/2025 9:37 AM CDT - 06/05/2025 11:59 PM CDT Hospital Encounter [facility] [address] [place] [address] Sjogren's syndrome, with unspecified organ involvement Discharge Disposition: Discharge to home or self care 06/05/2025 8:45 AM CDT Lab [facility] Medicine Endocrinology Metabolism and Lipid [address] [facility] 5th [place] [address] [place] [address] Sjogren's syndrome, with unspecified organ involvement 06/05/2025 8:00 AM CDT Office Visit [facility] Rheumatology [address] 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 QRS-Interval (MSEC) [address] [facility] QT-Interval (MSEC) 356 ms [facility] QTc [address] [facility] P [place] [address] [facility] R [place] -[address] [facility] T [place] 53 degrees [facility] Diagnosis Normal sinus rhythm Possible Left atrial enlargement Borderline ECG No previous ECGs available Confirmed by DANIA COLÓN M.D ([id number]) on 08/13/2025 1:10:[address] [facility] 08/13/2025 9:42 AM CDT 08/13/2025 1:10 PM CDT Briana Clemens MD ECG ORDERABLES Final Result [facility] * Urinalysis reflex to microscopic and culture Urine, clean voided (07/31/2025 9:40 AM CDT) Color, ur Straw Yellow Clarity, ur Clear Clear [facility] Specific gravity, ur 1.008 1.003 - 1.030 [facility] pH, urine 7.5 [facility] Comment: Interpretive Data U rine pH is affected by diet, medications, systemic acid-base disturbances, and renal tubular function. pH may affect urinary stone formation. For example, urine pH below 6.0 may help reduce the tendency for calcium phosphate stones and pH greater than 6.0 may reduce the tendency for uric acid stone formation. Source: [facility] Current Interpretive Data was last revised on 2017 Protein, ur ql Negative Negative [facility] Glucose, ur ql Negative Negative [facility] Ketones, ur Negative Negative [facility] Bilirubin, ur Negative Negative [facility] Blood, ur Negative Negative [facility] Urobilinogen, ur <2.0 <2.0 mg/dL [facility] Nitrite, ur Negative Negative [facility] Leukocyte esterase, ur Negative Negative [facility] UA reflex comment Reflex conditions for microscopic UA and culture not met. [facility] Urine, clean voided 07/31/2025 9:40 AM CDT 07/31/2025 10:22 AM CDT Briana Clemens MD LAB MICROBIOLOGY - GENERAL ORDER MARCIA Final Result [facility] [place] [address] * Protein / creatinine ratio, urine, random (07/31/2025 9:40 AM CDT) Protein, ur, quant <5.0 mg/dL Comment: Interpretive Data No reference range established. Current interpretive data was last revised 2019. Creatinine Ur 20.3 mg/dL [facility] Comment: Interpretive Data No reference range established. Current interpretive data was last revised 2019. Protein/creatini ne ratio See Comment 0.0 - 180.0 mg/g CR [facility] Comment:Unable to Calculate Urine 07/31/2025 9:40 AM CDT 07/31/2025 10:22 AM CDT us Briana Clemens MD LAB URINE ORDERABLES Final Resul t [facility] Department [place] [address] * (ABNORMAL) Urinalysis reflex to microscopic and culture Urine, clean voided (06/05/2025 8:42 AM CDT) Color, ur Straw Yellow Clarity, ur Clear Clear [facility] Specific gravity, ur 1.014 1.003 - 1.030 [facility] pH, urine 7.5 [facility] Comment: Interpretive Data U rine pH is affected by diet, medications, systemic acid-base disturbances, and renal tubular function. pH may affect urinary stone formation. For example, urine pH below 6.0 may help reduce the tendency for calcium phosphate stones and pH greater than 6.0 may reduce the tendency for uric acid stone formation. Source: [facility] [employer] Current Interpretive Data was last revised on 2017 Protein, ur ql Negative Negative [facility] Glucose, ur ql Negative Negative [facility] Ketones, ur Negative Negative [facility] Bilirubin, ur Negative Negative [facility] Blood, ur Negative Negative [facility] Urobilinogen, ur <2.0 <2.0 mg/dL [facility] Nitrite, ur Negative Negative [facility] Leukocyte esterase, ur 1+(A) Negative [facility] UA reflex comment Reflex to microscopic UA will be performed. [facility] Urine, clean voided 06/05/2025 8:42 AM CDT 06/05/2025 9:47 AM CDT Briana Clemens MD LAB MICROBIOLOGY - GENERAL ORDER MARCIA Final Result Performing Organization Address [facility] de Phone Number [facility] [place] [address] * Protein / creatinine ratio, urine, random (06/05/2025 8:42 AM CDT) Protein, ur, quant 5.2 mg/dL Comment: Interpretive Data No reference range established. Current interpretive data was last revised 2019. Creatinine Ur 38.5 mg/dL [facility] Comment: Interpretive Data No reference range established. Current interpretive data was last revised 2019. Protein/creatinin e ratio 135.1 0.0 - 180.0 mg/g CR [facility] Urine 06/05/2025 8:42 AM CDT 06/05/2025 9:47 AM CDT Briana Clemens MD LAB URINE ORDERABLES Final Resul t Performing Organization Address [facility] de Phone Number [facility] [place] [address] * (ABNORMAL) Urinalysis, microscopic only (06/05/2025 8:42 AM CDT) WBC, ur 0-5 0 - 5 /HPF RBC, ur 0-2 0 - 2 /HPF [facility] Epithelial cells, squamous, ur 1-5 0 - 5 /HPF [facility] Mucous, ur Present(A) [facility] Culture Reflex Comment Reflex conditions for urine culture (WBC >10) not met. [facility] Urine, clean voided 06/05/2025 8:42 AM CDT 06/05/2025 10:47 AM CDT us Briana Clemens MD LAB URINE ORDERABLES Final Resul t SILVA JOHN [facility] [place] [address] * CBC with auto differential (06/05/2025 8:37 [...] Final Resul t Performing Organization Address [facility] Phone Number [facility] * Erythrocyte sedimentation rate (06/05/2025 8:37 AM CDT) Erythrocyte Sedimentation Rate 17 <30 mm/hr [facility] Blood 06/05/2025 8:37 AM CDT 06/05/2025 9:45 AM CDT Briana Clemens MD LAB BLOOD ORDERABLES Final Resul t Performing Organization Address [facility] de Phone Number [facility] * CRP (acute phase) (06/05/2025 8:37 AM CDT) C-Reactive Protein, Acute <3.0 <5.0 mg/L [facility] Blood 06/05/2025 8:37 AM CDT 06/05/2025 9:45 AM CDT Briana Clemens MD LAB BLOOD ORDERABLES Final Resul t Performing Organization Address [facility] de Phone Number [facility] * Ortho [...] IN CLINIC/BEDSIDE ORDERAB LES Final Result * ID ARTHROCENTESIS ASPIR&/INJ INTERM JT/BURS W/O US (05/31/2025 [...] Hepatitis panel, acute Blood (12/14/2023 4:08 PM COMPUTER SYSTEMS ANALYST) Hep A IgM Nonreactive Nonreactive [facility] Hep B core IgM Nonreactive Nonreactive [facility] Hep C Ab Nonreactive Nonreactive [facility] Comment:Antibodies to HCV no t detected. Does NOT exclude the possibility of recent exposure to HCV. Current interpretive data was last revised on 22 HepBsAg Nonreactive Nonreactive [facility] Blood 12/14/2023 4:08 PM COMPUTER SYSTEMS ANALYST 12/14/2023 5:16 PM COMPUTER SYSTEMS ANALYST Briana Clemens MD LAB MICROBIOLOGY - GENERAL ORDER MARCIA Final Result [facility] Department [place] [id number] from Last 3 Months or Most Recently Relevant to Health Maintenance Insurance [facility] CHOICE PLUS [facility] HMO/PPO Address: [address] [place] [address] [facility] CHOICE PLUS [facility] HMO/PPO [place]: [place] [address] Care Teams Head Wrestling Coach Relationship Specialty Start [place] [address] [facility] [address] [place] [address] PCP - General Family Medicine 07/12/23 Shane Noble MD [address] [address] Fellow Neurology 08/17/22 Reynaldo Bunch MD [address] [place] [address] Orthopedic Surgery 08/10/23
--- OUTSIDE RECORDS SUMMARY | 2025-08-30 15:38 | XMS_ITS | Encounter Summary ---
Author Organization [facility] Address [facility] [place] [address] Care Team Providers Care Clinical Lab Technologist Name Role Phone Viv Hamm Primary Care Provider [phone] Alberto Avendano MD Unavailable [phone] Kylee Villanueva MD Primary Care Provider [phone] Encounter Details Date Type Department Care Team (Late st Contact Info) Description 03/17/2021 Cloakhart Message Enc [facility] Medical Group General Surgery [address], [address] [place] [address] Tracy Godoy MD [address] [place] [address] [address] Other Social History Tobacco Use [...] Sex Assigned at Female 11/14/2024 2:54 PM PRIVATE INVESTIGATOR SURVEILLANCE Legal Sex Female 11:06 AM CDT Gender [...] (Latest Contact Info) Description 09/05/2025 1:40 PM PRIVATE INVESTIGATOR SURVEILLANCE Office Visit [facility] Family & Internal Medicine [address] [phone] [place] [address] [place] [phone] 09/13/2025 7:40 AM PRIVATE INVESTIGATOR SURVEILLANCE Office Visit [facility] Family & Internal Medicine [address] [phone] [place] [address] [place] [phone] 09/17/2025 7:00 AM PRIVATE INVESTIGATOR SURVEILLANCE Office Visit [facility] Orthopedic & Sports Medicine [facility] [address] [place] [address] Merrill Hammond MD [address] [place] [address] 10/10/2025 1:40 PM PRIVATE INVESTIGATOR SURVEILLANCE Hospital Encounter [facility] Interventional Pain [place] [address] [id number] Elizabeth Ryder MD [address] [facility] [address] [place] [address] 10/10/2025 1:40 PM PRIVATE INVESTIGATOR SURVEILLANCE - 10/10/2025 2:00 PM PRIVATE INVESTIGATOR SURVEILLANCE Surgery [facility] Interventional [facility] [place] [address] [id number] Elizabeth Ryder MD [address] [facility] [address] [place] [address] INJECTION TRIGGER POINT 12/27/2025 10:40 AM PRIVATE INVESTIGATOR SURVEILLANCE Office Visit [facility] Medical Group Multispecialty Care - [facility] [address] [facility] [place] [address] Esau Hoff MD [address] [facility] [address] [place] [address] Scheduled Procedures Name Priority Associated Diagnoses Date/Ti me INJECTION TRIGGER POINT Myofascial pain 10/10/2025 1:40 PM PRIVATE INVESTIGATOR SURVEILLANCE documented as of this encounter Visit Diagnoses Not on filedocumented in this encounter Additional Health Concerns Infection Onset Date Last Indicated Resolved Time COVID-19 Rule Out 12/13/2023 12/13/2023 12/13/2023 8:54 AM PRIVATE INVESTIGATOR SURVEILLANCE COVID-19 Rule Out 08/30/2024 08/30/2024 08/30/2024 8:14 AM PRIVATE INVESTIGATOR SURVEILLANCE COVID-19 Rule Out 11/03/2024 11/03/2024 11/03/2024 10:48 AM PRIVATE INVESTIGATOR SURVEILLANCE documented as of this encounter Care Teams Clinical Lab Technologist Relationship Specialty [place] [address] [place], [place] [phone] PCP - General PHYSICIAN FLUX CORE WELDER 02/03/21 06/06/23 [place] [address] [place], [place] [phone] PCP - General FAMILY PRACTICE 06/07/23 [place] [address] [place] [address] NEUROLOGICAL SURGERY 11/24/21 documented as of this encounter
--- OUTSIDE RECORDS SUMMARY | 2025-08-30 15:39 | XMS_ITS | Encounter Summary ---
Author Organization [facility] Address [facility] [place] [address] Care Team Providers Care Cardiac Specialist Name Role Phone Viv Hamm Primary Care Provider [phone] Alberto Avendano MD Unavailable [phone] Kylee Villanueva MD Primary Care Provider [phone] Encounter Details Date Type Department Care Team (Late st Contact Info) Description 09/09/2022 GeoCitieshart Message Enc [facility] Medical Group Family & Internal Medicine [facility] [address] [place] [address] Viv Hamm [place] [id number] [place] [address] Life Insurance Request Social History Tobacco [...] Sex Assigned at Female 11/14/2024 2:54 PM PIPE ROLLER Legal Sex Female 11:06 AM CDT Gender Identity Female 05/11/2025 1:56 PM CDT Sexual Orientation Not on file COVID-19 Exposure Response Date Recorded In the last 10 days, have yo u been in contact with someone who was confirmed or suspected to have Coronavirus/COVID-19? No / Unsure 09/07/2022 3:39 PM PIPE ROLLER documented as of this encounter Plan of Treatment Upcoming Encounters Date Type Department Care Team (Latest Contact Info) Description 09/05/2025 1:40 PM PIPE ROLLER Office Visit [facility] Medical [facility] Family & Internal Medicine [address] [phone] [place] [address] [facility] [place] [address] 09/13/2025 7:40 AM PIPE ROLLER Office Visit [facility] Family & Internal Medicine [address] [phone] [place] [address] [address] [place] [address] 09/17/2025 7:00 AM PIPE ROLLER Office Visit [facility] Medical [facility] Orthopedic & Sports Medicine [facility] [address] [place] [address] Merrill Hammond MD [address] [place] [address] 10/10/2025 1:40 PM PIPE ROLLER Hospital Encounter [facility] Interventional [place] [address] [id number] Elizabeth Ryder MD [address] [facility] [address] [place] [address] 10/10/2025 1:40 PM PIPE ROLLER - 10/10/2025 2:00 PM PIPE ROLLER Surgery [facility] Interventional [facility] [place] [address] [id number] Elizabeth Ryder MD [address] [facility] [address] [place] [address] INJECTION TRIGGER POINT 12/27/2025 10:40 AM PIPE ROLLER Office Visit [facility] Medical Group Multispecialty Care - [facility] [address] [facility] [place] [address] Esau Hoff MD [address] [facility] [address] [place] [address] Scheduled Procedures Name Priority Associated Diagnoses Date/Ti me INJECTION TRIGGER POINT Myofascial pain 10/10/2025 1:40 PM PIPE ROLLER documented as of this encounter Visit Diagnoses Not on filedocumented in this encounter Additional Health Concerns Infection Onset Date Last Indicated Resolved Time COVID-19 Rule Out 12/13/2023 12/13/2023 12/13/2023 8:54 AM PIPE ROLLER COVID-19 Rule Out 08/30/2024 08/30/2024 08/30/2024 8:14 AM PIPE ROLLER COVID-19 Rule Out 11/03/2024 11/03/2024 11/03/2024 10:48 AM PIPE ROLLER documented as of this encounter Care Teams Cardiac Specialist Relationship Specialty [place] [address] [place] [address] PCP - General PHYSICIAN SUPERVISOR CLAIMS 02/03/21 06/06/23 [place] [address] [place] [address] PCP - General FAMILY PRACTICE 06/07/23 [place] [address] [place] [address] NEUROLOGICAL SURGERY 11/24/21 documented as of this encounter
--- OUTSIDE RECORDS SUMMARY | 2025-08-30 15:39 | XMS_ITS | Encounter Summary ---
Author Organization [facility] Address [address] [place] [address] Care Team Providers Care Overlock Elastic Attacher Name Role Phone Alberto Avendano MD Unavailable [phone] Kylee Villanueva MD Primary Care Provider Encounter Details Date Type Department Care Team (Late st Contact Info) Description 07/02/2025 Ximalayat Message Enc [facility] Medical Group Orthopedic & Sports Medicine - [place] [address] [place] [address] Merrill Hammond MD [address] [place] [address] Follow up Social History Tobacco Use Types Packs/Day Years [...] Sex Assigned at Female 11/14/2024 2:54 PM METAL ORGAN PIPE MAKER Legal Sex Female 11:06 AM CDT Gender Identity Female 05/11/2025 1:56 PM CDT Sexual Orientation Not on file documented as of this encounter Plan of Treatment Upcoming Encounters Date Type Department Care Team (Latest Contact Info) Description 09/05/2025 1:40 PM METAL ORGAN PIPE MAKER Office Visit [facility] Family & Internal Medicine [address] [phone] [place] [address] [place] [phone] 09/13/2025 7:40 AM METAL ORGAN PIPE MAKER Office Visit [facility] Family & Internal [address] [phone] [place] [address] [place] [address] 09/17/2025 7:00 AM METAL ORGAN PIPE MAKER Office Visit [facility] Orthopedic & Sports Medicine [facility] [address] [place] [address] Merrill Hammond MD [address] [place] [address] 10/10/2025 1:40 PM METAL ORGAN PIPE MAKER Hospital Encounter [facility] Interventional [place] [address] [id number] Elizabeth Ryder MD Three [facility] [address] [place] [address] 10/10/2025 1:40 PM METAL ORGAN PIPE MAKER - 10/10/2025 2:00 PM METAL ORGAN PIPE MAKER Surgery [facility] Interventional [facility] [place] [address] [id number] Elizabeth Ryder MD Three [facility] [address] [place] [address] INJECTION TRIGGER POINT 12/27/2025 10:40 AM METAL ORGAN PIPE MAKER Office Visit [facility] Medical Group Multispecialty Care - [facility] 3 [facility] [address] [place] [address] Esau Hoff MD 3 [facility] [address] [place] [address] Scheduled Procedures Name Priority Associated Diagnoses Date/Ti me INJECTION TRIGGER POINT Myofascial pain 10/10/2025 1:40 PM METAL ORGAN PIPE MAKER documented as of this encounter Visit Diagnoses Not on filedocumented in this encounter Additional Health Concerns Assessment Noted Time PHQ-9 Depression Total Score: 2 12/11/19 25 1:50 PM METAL ORGAN PIPE MAKER documented as of this encounter Care Teams Overlock Elastic Attacher Relationship Specialty Start [place] [address] [facility] [place] [address] PCP - General FAMILY PRACTICE 06/07/23 Alberto Avendano MD NEUROLOGICAL SURGERY 11/24/21 documented as of this encounter
--- OUTSIDE RECORDS SUMMARY | 2025-08-30 15:39 | XMS_ITS | Encounter Summary ---
Author Organization [facility] Address [address] [place] [address] Care Team Providers Care Title One Reading Teacher Name Role Phone Alberto Avendano MD Unavailable [phone] Kylee Villanueva MD Primary Care Provider [phone] Encounter Details Date Type Department Care Team (Late st Contact Info) Description 12/12/2024 WP Enginet Message Enc [facility] Medical Group Orthopedic & Sports Medicine - [place] [address] [place] [address] [phone] Reynaldo Bunch MD [address] [place] [address] Update Social History Tobacco Use Types Packs/Day [...] Sex Assigned at Female 11/14/2024 2:54 PM LOWER SCHOOL SPANISH TEACHER Legal Sex Female 11:06 AM CDT Gender Identity Female 05/11/2025 1:56 PM CDT Sexual Orientation Not on file documented as of this encounter Plan of Treatment Upcoming Encounters Date Type Department Care Team (Latest Contact Info) Description 09/05/2025 1:40 PM LOWER SCHOOL SPANISH TEACHER Office Visit [facility] Family & Internal Medicine [address] [phone] [place] [address] [place] [address] [phone] 09/13/2025 7:40 AM LOWER SCHOOL SPANISH TEACHER Office Visit [facility] Family & Internal Medicine [address] [phone] [place] [address] [place] [address] 09/17/2025 7:00 AM LOWER SCHOOL SPANISH TEACHER Office Visit [facility] Orthopedic & Sports Medicine [facility] [address] [place] [address] Merrill Hammond MD [address] [place] [address] 10/10/2025 1:40 PM LOWER S[employer] SPANISH TEACHER Hospital Encounter [facility] Interventional [place] [address] [id number] Elizabeth Ryder MD Three [facility] [address] [place] [address] 10/10/2025 1:40 PM LOWER SCHOOL SPANISH TEACHER - 10/10/2025 2:00 PM LOWER SCHOOL SPANISH TEACHER Surgery [facility] Interventional [place] [address] [id number] Elizabeth Ryder MD Three [facility] [address] [place] [address] INJECTION TRIGGER POINT 12/27/2025 10:40 AM LOWER SCHOOL SPANISH TEACHER Office Visit [facility] Medical Group Multispecialty Care - [facility] 3 [facility] [address] [place] [address] Esau Hoff MD 3 [facility] [address] [place] [address] Scheduled Procedures Name Priority Associated Diagnoses Date/Ti me INJECTION TRIGGER POINT Myofascial pain 10/10/2025 1:40 PM LOWER SCHOOL SPANISH TEACHER documented as of this encounter Visit Diagnoses Not on filedocumented in this encounter Additional Health Concerns Assessment Noted Time PHQ-9 Depression Total Score: 2 12/11/19 25 1:50 PM LOWER SCHOOL SPANISH TEACHER documented as of this encounter Care Teams Title One Reading Teacher Relationship Specialty Start [place] [address] [address] [place] [address] PCP - General FAMILY PRACTICE 06/07/23 Alberto Avendano MD NEUROLOGICAL SURGERY 11/24/21 documented as of this encounter
--- OUTSIDE RECORDS SUMMARY | 2025-08-30 15:39 | XMS_ITS | Encounter Summary ---
Author Organization [facility] Address [address] [place] [address] Care Team Providers Care Ceramic Sprayer Name Role Phone Alberto Avendano MD Unavailable [phone] Kylee Villanueva MD Primary Care Provider [phone] Encounter Details Date Type Department Care Team (Late st Contact Info) Description 05/30/[address] [facility] Medical Group Orthopedic & Sports Medicine - [employer] [address] [place] [address] [phone] Reynaldo Bunch MD [address] [place] [address] Problem Social History Tobacco Use Types Packs/Day Years [...] Sex Assigned at Female 11/14/2024 2:54 PM GARAGE HAND Legal Sex Female 11:06 AM CDT Gender Identity Female 05/11/2025 1:56 PM CDT Sexual Orientation Not on file documented as of this encounter Plan of Treatment Upcoming Encounters Date Type Department Care Team (Latest Contact Info) Description 09/05/2025 1:40 PM GARAGE HAND Office Visit [facility] Family & Internal Medicine [address] [phone] [place] [address] [place] [address] [phone] 09/13/2025 7:40 AM GARAGE HAND Office Visit [facility] Family & Internal [address] [phone] [place] [address] [place] [address] 09/17/2025 7:00 AM GARAGE HAND Office Visit [facility] Orthopedic & Sports Medicine [facility] [address] [place] [address] Merrill Hammond MD [address] [place] [address] 10/10/2025 1:40 PM GARAGE HAND Hospital Encounter [facility] Interventional Pain Management [place] [address] [id number] Elizabeth Ryder MD Three [facility] [address] [place] [address] 10/10/2025 1:40 PM GARAGE HAND - 10/10/2025 2:00 PM GARAGE HAND Surgery [facility] Interventional Pain Management [place] [address] [id number] Elizabeth Ryder MD Three [facility] [address] [place] [address] INJECTION TRIGGER POINT 12/27/2025 10:40 AM GARAGE HAND Office Visit [facility] Medical Group Multispecialty Care - [facility] 3 [facility] [address] [place] [address] Esau Hoff MD 3 [facility] [address] [place] [address] Scheduled Procedures Name Priority Associated Diagnoses Date/Ti me INJECTION TRIGGER POINT Myofascial pain 10/10/2025 1:40 PM GARAGE HAND documented as of this encounter Visit Diagnoses Not on filedocumented in this encounter Additional Health Concerns Assessment Noted Time PHQ-9 Depression Total Score: 2 12/11/19 25 1:50 PM GARAGE HAND documented as of this encounter Care Teams Ceramic Sprayer Relationship Specialty Start [place] [address] [facility] [address] [place] [address] PCP - General FAMILY PRACTICE 06/07/23 Alberto Avendano MD NEUROLOGICAL SURGERY 11/24/21 documented as of this encounter
--- OUTSIDE RECORDS SUMMARY | 2025-08-30 15:39 | XMS_ITS | Encounter Summary ---
Author Organization [facility] Address [address] [place] [address] Care Team Providers Care Internal Audit Consultant Name Role Phone Viv Hamm Primary Care Provider [phone] Alberto Avendano MD Unavailable [phone] Kylee Villanueva MD Primary Care Provider [phone] Reason for Visit * Reason Onset Date Comments Follow Up 08/24/2022 Encounter Details Date Type Department Care Team (Late st Contact Info) Description 08/24/2022 Telephone [facility] Interventional Pain Management Center [place], [place] [phone] [id number] Alberto Bueno, RN Follow Up Social History [...] Assigned at Female 11/14/2024 2:54 PM SUPERVISOR KOSHER DIETARY SERVICE Legal Sex Female 11:06 AM CDT Gender [...] Contact Info) Description 09/05/2025 1:40 PM SUPERVISOR KOSHER DIETARY SERVICE Office Visit [facility] Medical Group Family & Internal Medicine [address] [phone] Kylee Villanueva MD [address] [place] [address]. [address] [place] [address] 09/13/2025 7:40 AM SUPERVISOR KOSHER DIETARY SERVICE Office Visit [facility] Family & Internal Medicine [address] [phone] [place] [address] [address] [place] [address] 09/17/2025 7:00 AM SUPERVISOR KOSHER DIETARY SERVICE Office Visit [facility] Orthopedic & Sports Medicine - [place] [address] [place] [address] Merrill Hammond MD [address] [place] [address] 10/10/2025 1:40 PM SUPERVISOR KOSHER DIETARY SERVICE Hospital Encounter [facility] Interventional [place] [address] [id number] Elizabeth Ryder MD Three [facility] [address] [place] [address] 10/10/2025 1:40 PM SUPERVISOR KOSHER DIETARY SERVICE - 10/10/2025 2:00 PM SUPERVISOR KOSHER DIETARY SERVICE Surgery [facility] Interventional Pain [place] [address] [id number] Elizabeth Ryder MD Three [facility] [address] [place] [address] INJECTION TRIGGER POINT 12/27/2025 10:40 AM SUPERVISOR KOSHER DIETARY SERVICE Office Visit [facility] Multispecialty Care - [facility] 3 [facility], [address] [place] [phone] Esau Hoff MD 3 [facility] [address] [place] [address] Scheduled Procedures Name Priority Associated Diagnoses Date/Ti me INJECTION TRIGGER POINT Myofascial pain 10/10/2025 1:40 PM SUPERVISOR KOSHER DIETARY SERVICE documented as of this encounter Visit Diagnoses Not on filedocumented in this encounter Additional Health Concerns Infection Onset Date Last Indicated Resolved Time COVID-19 Rule Out 12/13/2023 12/13/2023 12/13/2023 8:54 AM SUPERVISOR KOSHER DIETARY SERVICE COVID-19 Rule Out 08/30/2024 08/30/2024 08/30/2024 8:14 AM SUPERVISOR KOSHER DIETARY SERVICE COVID-19 Rule Out 11/03/2024 11/03/2024 11/03/2024 10:48 AM SUPERVISOR KOSHER DIETARY SERVICE documented as of this encounter Care Teams Internal Audit Consultant Relationship Specialty [place] [address] [place] [address] PCP - General PHYSICIAN PHOTONICS ENGINEERING TECHNOLOGIST 02/03/21 06/06/23 [place] [address] [facility] [address] [place] [address] PCP - General FAMILY PRACTICE 06/07/23 [place] [address] [facility] [place] [address] NEUROLOGICAL SURGERY 11/24/21 documented as of this encounter
--- OUTSIDE RECORDS SUMMARY | 2025-08-30 15:39 | XMS_ITS | Encounter Summary ---
Author Organization [facility] Address [address] [place] [address] Care Team Providers Care Amalgamator Name Role Phone Alberto Avendano MD Unavailable [phone] Kylee Villanueva MD Primary Care Provider Encounter Details Date Type Department Care Team (Late st Contact Info) Description 12/13/[address] [facility] Medical Group Orthopedic & Sports Medicine - [place] [address] [place] [address] Reynaldo Bunch MD [address] [place] [address] Appt Social History Tobacco Use Types Packs/Day [...] Sex Assigned at Female 11/14/2024 2:54 PM PIT FURNACE MELTER Legal Sex Female 11:06 AM CDT Gender Identity Female 05/11/2025 1:56 PM CDT Sexual Orientation Not on file documented as of this encounter Plan of Treatment Upcoming Encounters Date Type Department Care Team (Latest Contact Info) Description 09/05/2025 1:40 PM PIT FURNACE MELTER Office Visit [facility] Family & Internal Medicine [address] [phone] [place] [address] [place] [address] [phone] 09/13/2025 7:40 AM PIT FURNACE MELTER Office Visit [facility] Family & Internal [address] [phone] [place] [address] [place] [address] 09/17/2025 7:00 AM PIT FURNACE MELTER Office Visit [facility] Orthopedic & Sports Medicine [facility] [address] [place] [address] Merrill Hammond MD [address] [place] [address] 10/10/2025 1:40 PM PIT FURNACE MELTER Hospital Encounter [facility] Interventional [place] [address] [id number] Elizabeth Ryder MD Three [facility] [address] [place] [address] 10/10/2025 1:40 PM PIT FURNACE MELTER - 10/10/2025 2:00 PM PIT FURNACE MELTER Surgery [facility] Interventional [place] [address] [id number] Elizabeth Ryder MD Three [facility] [address] [place] [address] INJECTION TRIGGER POINT 12/27/2025 10:40 AM PIT FURNACE MELTER Office Visit [facility] Medical Group Multispecialty Care - [facility] 3 [facility] [address] [place] [address] Esau Hoff MD 3 [facility] [address] [place] [address] Scheduled Procedures Name Priority Associated Diagnoses Date/Ti me INJECTION TRIGGER POINT Myofascial pain 10/10/2025 1:40 PM PIT FURNACE MELTER documented as of this encounter Visit Diagnoses Not on filedocumented in this encounter Additional Health Concerns Assessment Noted Time PHQ-9 Depression Total Score: 2 12/11/19 25 1:50 PM PIT FURNACE MELTER documented as of this encounter Care Teams Amalgamator Relationship Specialty [place] [address] [facility] [place] [address] PCP - General FAMILY PRACTICE 06/07/23 Alberto Avendano MD NEUROLOGICAL SURGERY 11/24/21 documented as of this encounter
--- OUTSIDE RECORDS SUMMARY | 2025-08-30 15:39 | XMS_ITS | Encounter Summary ---
Author Organization [facility] Address [facility] [place] [address] Care Team Providers Care Painting Contractor Name Role Phone Viv Hamm Primary Care Provider [phone] Alberto Avendano MD Unavailable [phone] Kylee Villanueva MD Primary Care Provider [phone] Encounter Details Date Type Department Care Team (Late st Contact Info) Description 07/31/2022 Pilgrim [employer] Message Enc [facility] Medical Group Family & Internal Medicine [facility] [address] [place] [address] [place] [phone] [place] [address] [place]-3 index test Social History Tobacco Use Types [...] Assigned at Female 11/14/2024 2:54 PM REGIONAL SALES CONSULTANT Legal Sex Female 11:06 AM CDT [...] (Latest Contact Info) Description 09/05/2025 1:40 PM REGIONAL SALES CONSULTANT Office Visit [facility] Family & Internal Medicine [address] [phone] [place] [address] [address] [place] [address] 09/13/2025 7:40 AM REGIONAL SALES CONSULTANT Office Visit [facility] Family & Internal Medicine [address] [phone] [place] [address] [address] [place] [address] 09/17/2025 7:00 AM REGIONAL SALES CONSULTANT Office Visit [facility] Orthopedic & Sports Medicine [facility] [address] [place] [address] Merrill Hammond MD [address] [place] [address] 10/10/2025 1:40 PM REGIONAL SALES CONSULTANT Hospital Encounter [facility] Interventional [place] [address] [id number] Elizabeth Ryder MD Three [facility] [address] [place] [address] 10/10/2025 1:40 PM REGIONAL SALES CONSULTANT - 10/10/2025 2:00 PM REGIONAL SALES CONSULTANT Surgery [facility] Interventional [place] [address] [id number] Elizabeth Ryder MD Three [facility] [address] [place] [address] INJECTION TRIGGER POINT 12/27/2025 10:40 AM REGIONAL SALES CONSULTANT Office Visit [facility] Medical Group Multispecialty Care - [facility] 3 [facility] [address] [place] [address] Esau Hoff MD 3 [facility] [address] [place] [address] Scheduled Procedures Name Priority Associated Diagnoses Date/Ti me INJECTION TRIGGER POINT Myofascial pain 10/10/2025 1:40 PM REGIONAL SALES CONSULTANT documented as of this encounter Visit Diagnoses Not on filedocumented in this encounter Additional Health Concerns Infection Onset Date Last Indicated Resolved Time COVID-19 Rule Out 12/13/2023 12/13/2023 12/13/2023 8:54 AM REGIONAL SALES CONSULTANT COVID-19 Rule Out 08/30/2024 08/30/2024 08/30/2024 8:14 AM REGIONAL SALES CONSULTANT COVID-19 Rule Out 11/03/2024 11/03/2024 11/03/2024 10:48 AM REGIONAL SALES CONSULTANT documented as of this encounter Care Teams Painting Contractor Relationship Specialty [place] [address] [place] [address] PCP - General PHYSICIAN VASCULAR NEUROLOGIST 02/03/21 06/06/23 [place] [address] [address] [place] [address] PCP - General FAMILY PRACTICE 06/07/23 [place] [address] [place] [address] NEUROLOGICAL SURGERY 11/24/21 documented as of this encounter
--- OUTSIDE RECORDS SUMMARY | 2025-08-30 15:39 | XMS_ITS | Encounter Summary ---
Author Organization [facility] Address [address] [place] [address] Care Team Providers Care Remote Broadcast Technician Name Role Phone Alberto Avendano MD Unavailable [phone] Kylee Villanueva MD Primary Care Provider [phone] Encounter Details Date Type Department Care Team (Late st Contact Info) Description 08/29/2025 [employer] Message Enc [facility] Medical Group Family & Internal Medicine [address] [address] [email or web address] Provider Appointment Social History Tobacco Use Types Packs/Day [...] Sex Assigned at Female 11/14/2024 2:54 PM RAW CHEESE WORKER Legal Sex Female 11:06 AM CDT Gender Identity Female 05/11/2025 1:56 PM CDT Sexual Orientation Not on file documented as of this encounter Plan of Treatment Upcoming Encounters Date Type Department Care Team (Latest Contact Info) Description 09/05/2025 1:40 PM RAW CHEESE WORKER Office Visit [facility] Family & Internal Medicine [address] [phone] [place] [address] [place] [address] [phone] 09/13/2025 7:40 AM RAW CHEESE WORKER Office Visit [facility] Family & Internal [address] [phone] [place] [address] [place] [address] 09/17/2025 7:00 AM RAW CHEESE WORKER Office Visit [facility] Orthopedic & Sports Medicine [facility] [address] [place], [place] 477564 [phone] Merrill Hammond MD [address] [place] [address] 10/10/2025 1:40 PM RAW CHEESE WORKER Hospital Encounter [facility] Interventional [place] [address] [id number] Elizabeth Ryder MD Three [facility] [address] [place] [address] 10/10/2025 1:40 PM RAW CHEESE WORKER - 10/10/2025 2:00 PM RAW CHEESE WORKER Surgery [facility] Interventional [place] [address] [id number] Elizabeth Ryder MD Three [facility] [address] [place] [address] INJECTION TRIGGER POINT 12/27/2025 10:40 AM RAW CHEESE WORKER Office Visit [facility] Medical Group Multispecialty Care - [facility] 3 [facility] [address] [place] [address] Esau Hoff MD 3 [facility] [address] [place] [address] Scheduled Procedures Name Priority Associated Diagnoses Date/Ti me INJECTION TRIGGER POINT Myofascial pain 10/10/2025 1:40 PM RAW CHEESE WORKER documented as of this encounter Goals Goal Patient Goal Type Associated Problems Recent Progress Patient-Stated? Author Autogenera janae Goal Care Plan Autogenerated Problem No Maggie Clark V documented as of this encounter Visit Diagnoses Not on filedocumented in this encounter Additional Health Concerns Active Problems Noted Date Diagnosed Date Autogenerated Problem 08/08/2025 Assessment Noted Time PHQ-9 Depression Total Score: 2 12/11/19 25 1:50 PM RAW CHEESE WORKER documented as of this encounter Care Teams Remote Broadcast Technician Relationship Specialty Start [place] [address] [address] [place] [address] PCP - General FAMILY PRACTICE 06/07/23 Alberto Avendano MD NEUROLOGICAL SURGERY 11/24/21 documented as of this encounter
--- OUTSIDE RECORDS SUMMARY | 2025-08-30 15:39 | XMS_ITS | Encounter Summary ---
Author Organization [facility] Address [facility] [place] [address] Care Team Providers Care Purse Maker Name Role Phone Viv Hamm Primary Care Provider [phone] Alberto Avendano MD Unavailable [phone] Kylee Villanueva MD Primary Care Provider [phone] Encounter Details Date Type Department Care Team (Late st Contact Info) Description 10/20/2021 MyChart Message [facility] Care - [facility] [address] [place] [address] Shane Noble MD 1 [place] [address] Orbital MRI Social History Tobacco Use Types [...] Assigned at Female 11/14/2024 2:54 PM SUPERVISOR IRRIGATION Legal Sex Female 11:06 AM CDT Gender Identity Female 05/11/2025 1:56 PM CDT Sexual Orientation Not on file COVID-19 Exposure Response Date Recorded In the last month, have you been in contact with someone who was confirmed or suspected to have Coronavirus / COVID-19? No / Unsure 10/21/2021 7:39 AM SUPERVISOR IRRIGATION documented as of this encounter Plan of Treatment Upcoming Encounters Date Type Department Care Team (Latest Contact Info) Description 09/05/2025 1:40 PM SUPERVISOR IRRIGATION Office Visit [facility] Family & Internal Medicine [address] [address] [place] [address] [facility] [address] [place] [address] [phone] 09/13/2025 7:40 AM SUPERVISOR IRRIGATION Office Visit [facility] Family & Internal Medicine [address] [address] [place] [address] [employer] [address]. [address] [place] [address] [phone] 09/17/2025 7:00 AM SUPERVISOR IRRIGATION Office Visit [facility] Orthopedic & Sports Medicine [facility] [address] [place] [address] Merrill Hammond MD [address] [place] [address] 10/10/2025 1:40 PM SUPERVISOR IRRIGATION Hospital Encounter [facility] [place] [address] [id number] Elizabeth Ryder MD Three [facility] [address] [place] [address] 10/10/2025 1:40 PM SUPERVISOR IRRIGATION - 10/10/2025 2:00 PM SUPERVISOR IRRIGATION Surgery [facility] [place] [address] [id number] Elizabeth Ryder MD Three [facility] [address] [place] [address] INJECTION TRIGGER POINT 12/27/2025 10:40 AM SUPERVISOR IRRIGATION [facility] - [facility] [address] [facility] [place] [address] Esau Hoff MD 3 [facility] [address] [place] [address] Scheduled Procedures Name Priority Associated Diagnoses Date/Ti me INJECTION TRIGGER POINT Myofascial pain 10/10/2025 1:40 PM SUPERVISOR IRRIGATION documented as of this encounter Visit Diagnoses Not on filedocumented in this encounter Additional Health Concerns Infection Onset Date Last Indicated Resolved Time COVID-19 Rule Out 12/13/2023 12/13/2023 12/13/2023 8:54 AM SUPERVISOR IRRIGATION COVID-19 Rule Out 08/30/2024 08/30/2024 08/30/2024 8:14 AM SUPERVISOR IRRIGATION COVID-19 Rule Out 11/03/2024 11/03/2024 11/03/2024 10:48 AM SUPERVISOR IRRIGATION documented as of this encounter Care Teams Purse Maker Relationship Specialty [place] [address] [place] [address] PCP - General PHYSICIAN MANAGER OF BROADCAST CONTENT 02/03/21 06/06/23 [place] [address] [address] [place] [address] PCP - General FAMILY PRACTICE 06/07/23 [place] [address] [place] [address] NEUROLOGICAL SURGERY 11/24/21 documented as of this encounter
--- OUTSIDE RECORDS SUMMARY | 2025-08-30 15:39 | XMS_ITS | Encounter Summary ---
Author Organization [facility] Address [address] [place] [address] Care Team Providers Care Business Continuity Coordinator Name Role Phone Alberto Avendano MD Unavailable [phone] Kylee Villanueva MD Primary Care Provider [phone] Encounter Details Date Type Department Care Team (Late st Contact Info) Description 11/02/2024 [employer] Message Enc [facility] Medical Group Family & Internal Medicine [address] [address] [employer], [facility] Provider Medication Information Social History [...] Sex Assigned at Female 11/14/2024 2:54 PM SUB PRIOR Legal Sex Female 11:06 AM CDT Gender [...] hopeless Not at all 11/03/2024 10:27 AM SUB PRIOR Rm Almonte MA Active Patient Health Questionnaire-2 Score 0 11/03/2024 10:27 AM SUB PRIOR Feliz Almonte MA Active documented as of this encounter Plan of Treatment Upcoming Encounters Date Type Department Care Team (Latest Contact Info) Description 09/05/2025 1:40 PM SUB PRIOR Office Visit [facility] Family & Internal Medicine [address] [phone] [place] [address] [place] [address] 09/13/2025 7:40 AM SUB PRIOR Office Visit [facility] Family & Internal [address] [phone] [place] [address] [facility] [employer] [address] [place] [address] 09/17/2025 7:00 AM SUB PRIOR Office Visit [facility] Orthopedic & Sports Medicine [facility] [address] [place] [address] Merrill Hammond MD [address] [place] [address] 10/10/2025 1:40 PM SUB PRIOR Hospital Encounter [facility] Interventional [place] [address] [id number] Elizabeth Ryder MD Three [facility] [address] [place] [address] 10/10/2025 1:40 PM SUB PRIOR - 10/10/2025 2:00 PM SUB PRIOR Surgery [facility] Interventional Pain Management Center ONE [facility] [address] [id number] Elizabeth Ryder MD Three [facility] [address] [place] [address] INJECTION TRIGGER POINT 12/27/2025 10:40 AM SUB PRIOR Office Visit [facility] Medical Group Multispecialty Care - [facility] [address] [facility] [place] [address] Esau Hoff MD 3 [facility] [address] [place] [address] Scheduled Procedures Name Priority Associated Diagnoses Date/Ti me INJECTION TRIGGER POINT Myofascial pain 10/10/2025 1:40 PM SUB PRIOR documented as of this encounter Visit Diagnoses Not on filedocumented in this encounter Additional Health Concerns Infection Onset Date Last Indicated Resolved Time COVID-19 Rule Out 11/03/2024 11/03/2024 11/03/2024 10:48 AM SUB PRIOR documented as of this encounter Care Teams Business Continuity Coordinator Relationship Specialty Start [place] [address] [address] [place] [address] PCP - General FAMILY PRACTICE 06/07/23 Alberto Avendano MD NEUROLOGICAL SURGERY 11/24/21 documented as of this encounter
--- OUTSIDE RECORDS SUMMARY | 2025-08-30 15:39 | XMS_ITS | Encounter Summary ---
Author Organization [facility] Address [address] [place] [address] Phone Care Team Providers Care Sieve Grader Tender Name Role Phone Shane Noble MD Unavailable [phone] Kylee Villanueva MD Primary Care Provider [phone] Reynaldo Bunch MD Unavailable [phone] Reason for Visit * Reason Onset Date Comments Autonomic testing for dizziness 08/11/2024 Encounter Details Date Type Department Care Team (Late st Contact Info) Description 08/11/2024 Telephone [facility] Neuro Muscle [address] [facility] 6th [place] [address] [place] [address] Augustina Christie CMA Autonomic testing [...] 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 [place] [address] PCP - General Family Medicine 07/12/23 Shane Noble MD [address] [phone] Fellow Neurology 08/17/22 Reynaldo Bunch MD [address] [place], [place] [phone] Orthopedic Surgery 08/10/23 documented as of this encounter
--- OUTSIDE RECORDS SUMMARY | 2025-08-30 15:39 | XMS_ITS | Encounter Summary ---
Author Organization [facility] Address [facility] [place] [address] Care Team Providers Care Wood Club Neck Whipper Name Role Phone Viv Hamm Primary Care Provider [phone] Alberto Avendano MD Unavailable [phone] Kylee Villanueva MD Primary Care Provider [phone] Encounter Details Date Type Department Care Team (Late st Contact Info) Description 09/23/2022 Myca Healthhart Message Enc [facility] Medical Group Family & Internal Medicine [facility] [address] [place] [address] [place] Hamm [place] [id number] [place] [address] Blood Test results from Insurance application [...] Assigned at Female 11/14/2024 2:54 PM HOME DAY CARE PROVIDER Legal Sex Female 11:06 AM CDT Gender Identity Female 05/11/2025 1:56 PM CDT Sexual Orientation Not on file COVID-19 Exposure Response Date Recorded In the last 10 days, have yo u been in contact with someone who was confirmed or suspected to have Coronavirus/COVID-19? No / Unsure 09/21/2022 1:58 PM HOME DAY CARE PROVIDER documented as of this encounter Plan of Treatment Upcoming Encounters Date Type Department Care Team (Latest Contact Info) Description 09/05/2025 1:40 PM HOME DAY CARE PROVIDER Office Visit [facility] Family & Internal Medicine [address] [phone] [place] [address] [address] [place] [address] 09/13/2025 7:40 AM HOME DAY CARE PROVIDER Office Visit [facility] Family & Internal Medicine [address] [address] [place] [address] [address] [place] [address] 09/17/2025 7:00 AM HOME DAY CARE PROVIDER Office Visit [facility] Orthopedic & Sports Medicine [facility] [address] [place] [address] Merrill Hammond MD [address] [place] [address] 10/10/2025 1:40 PM HOME DAY CARE PROVIDER Hospital Encounter [facility] Interventional Pain [place] [address] [id number] Elizabeth Ryder MD Three [facility] [address] [place] [address] 10/10/2025 1:40 PM HOME DAY CARE PROVIDER - 10/10/2025 2:00 PM HOME DAY CARE PROVIDER Surgery [facility] Interventional Pain [place] [address] [id number] Elizabeth Ryder MD Three [facility] [address] [place] [address] INJECTION TRIGGER POINT 12/27/2025 10:40 AM HOME DAY CARE PROVIDER Office Visit [facility] Medical Group Multispecialty Care - [facility] [address] [facility] [place] [address] Esau Hoff MD [address] [facility] [address] [place] [address] Scheduled Procedures Name Priority Associated Diagnoses Date/Ti me INJECTION TRIGGER POINT Myofascial pain 10/10/2025 1:40 PM HOME DAY CARE PROVIDER documented as of this encounter Visit Diagnoses Not on filedocumented in this encounter Additional Health Concerns Infection Onset Date Last Indicated Resolved Time COVID-19 Rule Out 12/13/2023 12/13/2023 12/13/2023 8:54 AM HOME DAY CARE PROVIDER COVID-19 Rule Out 08/30/2024 08/30/2024 08/30/2024 8:14 AM HOME DAY CARE PROVIDER COVID-19 Rule Out 11/03/2024 11/03/2024 11/03/2024 10:48 AM HOME DAY CARE PROVIDER documented as of this encounter Care Teams Wood Club Neck Whipper Relationship Specialty [place] [address] [place] [address] PCP - General PHYSICIAN COIN MACHINE SUPERVISOR 02/03/21 06/06/23 [place] [address] [address] [place] [address] PCP - General FAMILY PRACTICE 06/07/23 [place] [address] [place] [address] NEUROLOGICAL SURGERY 11/24/21 documented as of this encounter
--- OUTSIDE RECORDS SUMMARY | 2025-08-30 15:39 | XMS_ITS | Encounter Summary ---
Author Organization [facility] Address [facility] [place] [address] Care Team Providers Care Composing Room Supervisor Name Role Phone Viv Hamm Primary Care Provider [phone] Alberto Avendano MD Unavailable [phone] Kylee Villanueva MD Primary Care Provider [phone] Encounter Details Date Type Department Care Team (Late st Contact Info) Description 09/16/2022 MyChart Message Enc [facility] Medical Group Family & Internal Medicine [facility] [address] [place] [address] Vvi Hamm [place] [id number] [place] [address] Blood Test Results Social History Tobacco [...] Sex Assigned at Female 11/14/2024 2:54 PM FLOW MANAGER Legal Sex Female 11:06 AM CDT Gender Identity Female 05/11/2025 1:56 PM CDT Sexual Orientation Not on file COVID-19 Exposure Response Date Recorded In the last 10 days, have yo u been in contact with someone who was confirmed or suspected to have Coronavirus/COVID-19? No / Unsure 09/16/2022 11:34 AM FLOW MANAGER documented as of this encounter Plan of Treatment Upcoming Encounters Date Type Department Care Team (Latest Contact Info) Description 09/05/2025 1:40 PM FLOW MANAGER Office Visit [facility] Medical [facility] Family & Internal Medicine [address] [phone] [place] [address] [facility] [employer]. [address] [place] [address] 09/13/2025 7:40 AM FLOW MANAGER Office Visit [facility] Family & Internal Medicine [address] [address] [place] [address] [employer] [address] [place] [address] 09/17/2025 7:00 AM FLOW MANAGER Office Visit [facility] Medical [facility] Orthopedic & Sports Medicine [facility] [address] [place] [address] Merrill Hammond MD [address] [place] [address] 10/10/2025 1:40 PM FLOW MANAGER Hospital Encounter [facility] Interventional [place] [address] [id number] Elizabeth Ryder MD Three [facility] [address] [place] [address] 10/10/2025 1:40 PM FLOW MANAGER - 10/10/2025 2:00 PM FLOW MANAGER Surgery [facility] Interventional Pain [place] [address] [id number] Elizabeth Ryder MD Three [facility] [address] [place] [address] INJECTION TRIGGER POINT 12/27/2025 10:40 AM FLOW MANAGER Office Visit [facility] Medical Group Multispecialty Care - [facility] [address] [facility] [address] [place] [address] Esau Hoff MD 3 [facility] [address] [place] [address] Scheduled Procedures Name Priority Associated Diagnoses Date/Ti me INJECTION TRIGGER POINT Myofascial pain 10/10/2025 1:40 PM FLOW MANAGER documented as of this encounter Visit Diagnoses Not on filedocumented in this encounter Additional Health Concerns Infection Onset Date Last Indicated Resolved Time COVID-19 Rule Out 12/13/2023 12/13/2023 12/13/2023 8:54 AM FLOW MANAGER COVID-19 Rule Out 08/30/2024 08/30/2024 08/30/2024 8:14 AM FLOW MANAGER COVID-19 Rule Out 11/03/2024 11/03/2024 11/03/2024 10:48 AM FLOW MANAGER documented as of this encounter Care Teams Composing Room Supervisor Relationship Specialty [place] [address] [place] [address] - [address] ENGINEER 02/03/21 06/06/23 [place] [address] [address] [place] [address] PCP - General FAMILY PRACTICE 06/07/23 [place] [address] [place] [address] NEUROLOGICAL SURGERY 11/24/21 documented as of this encounter
--- OUTSIDE RECORDS SUMMARY | 2025-08-30 15:39 | XMS_ITS | Encounter Summary ---
Author Organization [facility] Address [address] [place] [address] Care Team Providers Care Workforce Planner Name Role Phone Alberto Avendano MD Unavailable [phone] Kylee Villanueva MD Primary Care Provider [phone] Encounter Details Date Type Department Care Team (Late st Contact Info) Description 06/18/2025 agnion Energyt Message Enc [facility] Interventional Pain Management Center [address] [place], [place] [phone] [id number] Elizabeth Ryder MD Three [facility] [address] [place] [address] Trigger Point Injections Social History Tobacco Use Types Packs/Day [...] Sex Assigned at Female 11/14/2024 2:54 PM CASTING MACHINE OPERATOR AUTOMATIC Legal Sex Female 11:06 AM CDT Gender Identity Female 05/11/2025 1:56 PM CDT Sexual Orientation Not on file documented as of this encounter Plan of Treatment Upcoming Encounters Date Type Department Care Team (Latest Contact Info) Description 09/05/2025 1:40 PM CASTING MACHINE OPERATOR AUTOMATIC Office Visit [facility] Family & Internal Medicine [address] [address] [place] [address] [place] [phone] 09/13/2025 7:40 AM CASTING MACHINE OPERATOR AUTOMATIC Office Visit [facility] Family & Internal Medicine [address] [address] [place] [address] [place] [address] 09/17/2025 7:00 AM CASTING MACHINE OPERATOR AUTOMATIC Office Visit [facility] Orthopedic & Sports Medicine [facility] [address] [place] [address] Merrill Hammond MD [address] [place] [address] 10/10/2025 1:40 PM CASTING MACHINE OPERATOR AUTOMATIC Hospital Encounter [facility] Interventional [place] [address] [id number] Elizabeth Ryder MD Three [facility] [address] [place] [address] 10/10/2025 1:40 PM CASTING MACHINE OPERATOR AUTOMATIC - 10/10/2025 2:00 PM CASTING MACHINE OPERATOR AUTOMATIC Surgery [facility] Interventional Pain Management Center ONE [facility] [place] [address] [id number] Elizabeth Ryder MD Three [facility] [address] [place] [address] INJECTION TRIGGER POINT 12/27/2025 10:40 AM CASTING MACHINE OPERATOR AUTOMATIC Office Visit [facility] Medical Group Multispecialty Care - [facility] 3 [facility] [address] [place] [address] Esau Hoff MD 3 [facility] [address] [place] [address] Scheduled Procedures Name Priority Associated Diagnoses Date/Ti me INJECTION TRIGGER POINT Myofascial pain 10/10/2025 1:40 PM CASTING MACHINE OPERATOR AUTOMATIC documented as of this encounter Visit Diagnoses Not on filedocumented in this encounter Additional Health Concerns Assessment Noted Time PHQ-9 Depression Total Score: 2 12/11/19 25 1:50 PM CASTING MACHINE OPERATOR AUTOMATIC documented as of this encounter Care Teams Workforce Planner Relationship Specialty Start [place] [address] [facility] [place] [address] PCP - General FAMILY PRACTICE 06/07/23 Alberto Avendano MD NEUROLOGICAL SURGERY 11/24/21 documented as of this encounter
--- OUTSIDE RECORDS SUMMARY | 2025-08-30 15:39 | XMS_ITS | Encounter Summary ---
Author Organization [facility] Address [facility] [place] [address] Care Team Providers Care Card Placer Name Role Phone Viv Hamm Primary Care Provider [phone] Alberto Avendano MD Unavailable [phone] Kylee Villanueva MD Primary Care Provider [phone] Encounter Details Date Type Department Care Team (Latest Contact Info) Description 09/10/2022 Lateral SVhart Message Enc [facility] Medical Group Family & Internal Medicine [facility] [address] [place] [address] Viv Hamm [place] [id number] [place] [address] Report from Neurosurgeon Social History Tobacco [...] Sex Assigned at Female 11/14/2024 2:54 PM STORE MERCHANDISER Legal Sex Female 11:06 AM CDT Gender Identity Female 05/11/2025 1:56 PM CDT Sexual Orientation Not on file COVID-19 Exposure Response Date Recorded In the last 10 days, have yo u been in contact with someone who was confirmed or suspected to have Coronavirus/COVID-19? No / Unsure 09/07/2022 3:39 PM STORE MERCHANDISER documented as of this encounter Plan of Treatment Upcoming Encounters Date Type Department Care Team (Latest Contact Info) Description 09/05/2025 1:40 PM STORE MERCHANDISER Office Visit [facility] Family & Internal Medicine [address] [phone] [place] [address] [employer]. [address] [place] [address] 09/13/2025 7:40 AM STORE MERCHANDISER Office Visit [facility] Family & Internal Medicine [address] [address] [place] [address] [address] [place] [address] 09/17/2025 7:00 AM STORE MERCHANDISER Office Visit [facility] Orthopedic & Sports Medicine [facility] [address] [place] [address] Merrill Hammond MD [address] [place] [address] 10/10/2025 1:40 PM STORE MERCHANDISER Hospital Encounter [facility] Interventional [place] [address] [id number] Elizabeth Ryder MD Three [facility] [address] [place] [address] 10/10/2025 1:40 PM STORE MERCHANDISER - 10/10/2025 2:00 PM STORE MERCHANDISER Surgery [facility] Interventional [facility] [place] [address] [id number] Elizabeth Ryder MD Three [facility] [address] [place] [address] INJECTION TRIGGER POINT 12/27/2025 10:40 AM STORE MERCHANDISER Office Visit [facility] Medical Group Multispecialty Care - [facility] [address] [facility] [address] [place] [address] Esau Hoff MD 3 [facility] [address] [place] [address] Scheduled Procedures Name Priority Associated Diagnoses Date/Ti me INJECTION TRIGGER POINT Myofascial pain 10/10/2025 1:40 PM STORE MERCHANDISER documented as of this encounter Visit Diagnoses Not on filedocumented in this encounter Additional Health Concerns Infection Onset Date Last Indicated Resolved Time COVID-19 Rule Out 12/13/2023 12/13/2023 12/13/2023 8:54 AM STORE MERCHANDISER COVID-19 Rule Out 08/30/2024 08/30/2024 08/30/2024 8:14 AM STORE MERCHANDISER COVID-19 Rule Out 11/03/2024 11/03/2024 11/03/2024 10:48 AM STORE MERCHANDISER documented as of this encounter Care Teams Card Placer Relationship Specialty [place] [address] [place] [address] PCP - General PHYSICIAN BUNDLE CLERK 4/12/21 8/13/23 [place] [address] [address] [place] [address] PCP - General FAMILY PRACTICE 06/07/23 [place] [address] [place] [address] NEUROLOGICAL SURGERY 11/24/21 documented as of this encounter
--- OUTSIDE RECORDS SUMMARY | 2025-08-30 15:39 | XMS_ITS | Encounter Summary ---
Author Organization [facility] Address [facility] [place] [address] Care Team Providers Care Manager Of Radiology Name Role Phone Viv Hamm Primary Care Provider [phone] Alberto Avendano MD Unavailable [phone] Kylee Villanueva MD Primary Care Provider [phone] Encounter Details Date Type Department Care Team (Late st Contact Info) Description 09/24/2022 [employer] Message Enc [facility] Medical Group Family & Internal Medicine [facility] [address] [place] [address] Viv Hamm [place] [id number] [place] [address] Omeprazole 20mg Refill Social History Tobacco [...] Sex Assigned at Female 11/14/2024 2:54 PM NURSE'S ASSISTANT Legal Sex Female 11:06 AM CDT Gender Identity Female 05/11/2025 1:56 PM CDT Sexual Orientation Not on file COVID-19 Exposure Response Date Recorded In the last 10 days, have yo u been in contact with someone who was confirmed or suspected to have Coronavirus/COVID-19? No / Unsure 09/21/2022 1:58 PM NURSE'S ASSISTANT documented as of this encounter Plan of Treatment Upcoming Encounters Date Type Department Care Team (Latest Contact Info) Description 09/05/2025 1:40 PM NURSE'S ASSISTANT Office Visit [facility] Family & Internal Medicine [address] [phone] [place] [address] [address] [place] [address] 09/13/2025 7:40 AM NURSE'S ASSISTANT Office Visit [facility] Family & Internal Medicine [address] [address] [place] [address] [address] [place] [address] 09/17/2025 7:00 AM NURSE'S ASSISTANT Office Visit [facility] Orthopedic & Sports Medicine [facility] [address] [place] [address] Merrill Hammond MD [address] [place] [address] 10/10/2025 1:40 PM NURSE'S ASSISTANT Hospital Encounter [facility] Interventional [facility] [place] [address] [id number] Elizabeth Ryder MD Three [facility] [address] [place] [address] 10/10/2025 1:40 PM NURSE'S ASSISTANT - 10/10/2025 2:00 PM NURSE'S ASSISTANT Surgery [facility] Interventional Pain [place] [address] [id number] Elizabeth Ryder MD Three [facility] [address] [place] [address] INJECTION TRIGGER POINT 12/27/2025 10:40 AM NURSE'S ASSISTANT Office Visit [facility] Medical Group Multispecialty Care - [facility] [address] [facility] [address] [place] [address] Esau Hoff MD 3 [facility] [address] [place] [address] Scheduled Procedures Name Priority Associated Diagnoses Date/Ti me INJECTION TRIGGER POINT Myofascial pain 10/10/2025 1:40 PM NURSE'S ASSISTANT documented as of this encounter Visit Diagnoses Not on filedocumented in this encounter Additional Health Concerns Infection Onset Date Last Indicated Resolved Time COVID-19 Rule Out 12/13/2023 12/13/2023 12/13/2023 8:54 AM NURSE'S ASSISTANT COVID-19 Rule Out 08/30/2024 08/30/2024 08/30/2024 8:14 AM NURSE'S ASSISTANT COVID-19 Rule Out 11/03/2024 11/03/2024 11/03/2024 10:48 AM NURSE'S ASSISTANT documented as of this encounter Care Teams Manager Of Radiology Relationship Specialty [place] [address] [place] [address] PCP - General PHYSICIAN ELECTION JUDGE 02/03/21 06/06/23 [place] [address] [address] [place] [address] PCP - General FAMILY PRACTICE 06/07/23 [place] [address] [place] [address] NEUROLOGICAL SURGERY 11/24/21 documented as of this encounter
--- OUTSIDE RECORDS SUMMARY | 2025-08-30 15:39 | XMS_ITS | Encounter Summary ---
Author Organization [facility] Address formerly [facility] [place] [address] Care Team Providers Care Manufacturing Engineering Manager Name Role Phone Viv Hamm Primary Care Provider [phone] Alberto Avendano MD Unavailable [phone] Kylee Villanueva MD Primary Care Provider [phone] Encounter Details Date Type Department Care Team (Late st Contact Info) Description 09/30/2022 [employer] Message Enc [facility] Medical Group Family & Internal Medicine [address] [address] [facility] Lab work results Social History Tobacco [...] Sex Assigned at Female 11/14/2024 2:54 PM CRIMINAL INVESTIGATIVE AGENT Legal Sex Female 11:06 AM CDT Gender Identity Female 05/11/2025 1:56 PM CDT Sexual Orientation Not on file COVID-19 Exposure Response Date Recorded In the last 10 days, have yo u been in contact with someone who was confirmed or suspected to have Coronavirus/COVID-19? No / Unsure 09/21/2022 1:58 PM CRIMINAL INVESTIGATIVE AGENT documented as of this encounter Plan of Treatment Upcoming Encounters Date Type Department Care Team (Latest Contact Info) Description 09/05/2025 1:40 PM CRIMINAL INVESTIGATIVE AGENT Office Visit [facility] Family & Internal Medicine [address] [phone] [place] [address] [facility] [place] [phone] 09/13/2025 7:40 AM CRIMINAL INVESTIGATIVE AGENT Office Visit [facility] Family & Internal Medicine [address] [phone] [place] [address] [facility] [place] [address] [phone] 09/17/2025 7:00 AM CRIMINAL INVESTIGATIVE AGENT Office Visit [facility] Orthopedic & Sports Medicine [facility] [address] [place] [address] Merrill Hammond MD [address] [place] [address] 10/10/2025 1:40 PM CRIMINAL INVESTIGATIVE AGENT Hospital Encounter [facility] Interventional Pain [place] [address] [id number] Elizabeth Ryder MD Three [facility] [address] [place] [address] 10/10/2025 1:40 PM CRIMINAL INVESTIGATIVE AGENT - 10/10/2025 2:00 PM CRIMINAL INVESTIGATIVE AGENT Surgery [facility] Interventional Pain Management Center [address] [facility] [place] [address] [id number] Elizabeth Ryder MD Three [facility] [address] [place] [address] INJECTION TRIGGER POINT 12/27/2025 10:40 AM CRIMINAL INVESTIGATIVE AGENT Office Visit [facility] Medical Group Multispecialty Care - [facility] [address] [facility] [address] [place] [address] Esau Hoff MD 3 [facility] [address] [place] [address] Scheduled Procedures Name Priority Associated Diagnoses Date/Ti me INJECTION TRIGGER POINT Myofascial pain 10/10/2025 1:40 PM CRIMINAL INVESTIGATIVE AGENT documented as of this encounter Visit Diagnoses Not on filedocumented in this encounter Additional Health Concerns Infection Onset Date Last Indicated Resolved Time COVID-19 Rule Out 12/13/2023 12/13/2023 12/13/2023 8:54 AM CRIMINAL INVESTIGATIVE AGENT COVID-19 Rule Out 08/30/2024 08/30/2024 08/30/2024 8:14 AM CRIMINAL INVESTIGATIVE AGENT COVID-19 Rule Out 11/03/2024 11/03/2024 11/03/2024 10:48 AM CRIMINAL INVESTIGATIVE AGENT documented as of this encounter Care Teams Manufacturing Engineering Manager Relationship Specialty [place] [address] [place] [address] PCP - General PHYSICIAN SUPERVISING AIRPLANE PILOT 02/03/21 06/06/23 [place] [address] [address] [place] [address] PCP - General FAMILY PRACTICE 06/07/23 [place] [address] [place] [address] NEUROLOGICAL SURGERY 11/24/21 documented as of this encounter
--- OUTSIDE RECORDS SUMMARY | 2025-08-30 15:39 | XMS_ITS | Clinical Summary ---
Author Organization [facility] Address [address] [place] [address] Care Team Providers Care Heat And Frost Insulator Name Role Phone Alberto Avendano MD Unavailable [phone] Kylee Villanueva MD Primary Care Provider [phone] Allergies Active Allergy Reactions Criticality Noted Date Comments Clarithromycin Rash Medium 08/10/2023 Clindamycin Hives,Rash Low 09/11/2023 Sulfa Antibiotics Rash,Hives,Shortness of Breath High 10/14/2009 Trimethoprim Rash Low 10/09/2024 SEPTRA Medications montelukast 10 MG tablet Take 1 tablet (10 mg total) by mouth daily. 01/10/20 21 Active levocetirizine 5 MG Tab Take 1 tablet (5 mg total) by mouth 4 (four) times daily. 03/20/20 21 Active fluticasone propionate (FLONASE) 50 MCG/ACT nasal spray 2 sprays by Nasal route daily. 03/16/20 22 Active Cranberry-Vitami n C 84-20 MG [...] 2 (two) times daily. 01/31/20 25 Active desipramine (NORPRAMIN) 50 MG tablet Take 1 tablet (50 mg total) by mouth daily. 07/03/20 25 Active XIFAXAN 550 MG Tab TAKE 1 TABLET BY MOUTH 3 TIMES DAILY FOR 14 DAYS REASONS: EXCESSIVE BACTERIA IN SMALL INTESTINE Active EPINEPHrine 0.3 MG/0.3ML injection Inject 0.3 mLs (0.3 mg total) into the muscle as needed for Anaphylaxis. 10/04/20 24 025 Discontinued desipramine (NORPRAMIN) 10 MG Tab tablet Take 2 tablets (20 mg total) by mouth nightly at bedtime. 06/12/20 025 Discontinued Active Problems Problem Noted Date Diagnosed Date Wheezing 06/20/2025 Thoracic radiculopathy due t o degenerative joint disease of spine 06/20/2025 Dyspnea on exertion 06/20/2025 Other allergic rhinitis 06/20/2025 Numbness and tingling of both feet 06/20/2025 Numbness and tingling 06/20/2025 Idiopathic urticaria 06/20/2025 Gastric polyp 06/20/2025 Dermatitis, unspecified 06/20/2025 Common cold 06/20/2025 Chronic sinusitis 06/20/2025 Allergy to penicillin 06/20/2025 Allergic rhinitis due to pollen 06/20/2025 Allergic rhinitis due to animal hair and dander 06/20/2025 Abdominal distension 06/20/2025 Small intestinal bacterial overgrowth (SIBO) Gastroparesis 05/15/2025 Cervical disc disease 05/15/2025 Conjunctival hemorrhage of right eye 12/26/2024 Decreased peripheral vision, left 10/31/2024 Dry eyes 08/21/2024 Ptosis of left eyelid 08/21/2024 Cervical stenosis of spinal canal 07/19/2024 Sjogren syndrome 06/05/2024 Small fiber neuropathy 05/24/2024 Cervical facet joint syndrome 05/15/2024 Cervical radiculopathy 05/08/2024 Myofascial pain 02/24/2024 Elevated liver enzymes 01/25/2024 EARNEST on CPAP 12/13/2023 Vocal cord paralysis 12/13/2023 Dysphagia 04/06/2023 Hepatic steatosis 04/06/2023 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 Vocal cord dysfunction 01/03/2023 Lumbar radiculopathy 09/09/2022 Overview (09/09/2022): Added automatically from request for surgery [id number] Lumbar facet arthropathy 08/21/2022 Overview (08/21/2022): Added automatically from request for surgery [id number] NAFLD (nonalcoholic fatty liver disease) 022 Elevated LFTs 05/14/2022 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 Family history of colon cancer 03/17/2021 Hypertension 02/26/2021 GERD (gastroesophageal reflux disease) Environmental and seasonal allergies 02/26/2021 Resolved Problems Problem Noted Date Diagnosed Date Resolved Date Screen for colon cancer 06/20/2025 0910/2024 Calculus of gallbladder with out cholecystitis without obstruction 04/10/2022 12/11/2024 ALT (SGPT) level raised 04/10/2022 110 03/2024 Heartburn 03/17/2021 08/30/2024 Encounters Date Type Department Care Team Description 08/29/2025 Kell Message Enc [facility] Family & Internal Medicine [address] [phone] Kell [facility] Provider Appointment 08/07/2025 1:40 PM CDT - 08/07/2025 2:00 PM CDT Surgery [facility] Interventional [place] [address] [id number] Elizabeth Ryder MD INJECTION TRIGGER POINT 08/07/2025 12:55 PM CDT - 08/07/2025 2:02 PM CDT Hospital Encounter [facility]ventional [place] [address] [id number] Elizabeth Ryder MD Discharge Disposition: Home or Self Care (Routine Discharge) 08/07/2025 Travel 07/13/2025 9:00 AM CDT - 07/13/2025 9:20 AM CDT Surgery [facility] Interventional [place] [address] [id number] Elizabeth Ryder MD INJECTION EPIDURAL STEROID [id number] 07/13/2025 8:10 AM CDT - 07/13/2025 9:22 AM CDT Hospital Encounter [facility] Interventional [place] [address] [id number] Elizabeth Ryder MD Discharge Disposition: Home or Self Care (Routine Discharge) 07/13/2025 Travel 07/02/2025 MyChart Message Enc [facility] Orthopedic & Sports Medicine [facility] [address] [place] [address] Merrill Hammond MD Follow up 06/21/2025 Results Follow-Up [facility] Family & Internal Medicine [facility] [id number] [place] [phone] Alie Mendoza NP XR FOREARM RT 2V 06/20/2025 3:46 PM CDT - 06/20/2025 11:59 PM CDT Hospital Encounter [facility] [address] [place] [address] Alie Mendoza NP Discharge Disposition: Home or Self Care (Routine Discharge) 06/20/2025 3:00 PM CDT Office Visit [facility] Family & Internal Medicine [facility] [address] [place] [address] Alie Mendoza NP Arm Pain (Right arm pain, swelling on going for several months ) 06/20/2025 Travel 06/18/2025 MyChart Message Enc [facility] Interventional [place] [address] [id number] Elizabeth Ryder MD Trigger Point Injections 06/08/2025 MyChart Message Enc [facility] Medical [facility] Family & Internal Medicine [address] [phone] Kylee Villanueva MD Blood tests 06/07/2025 12:00 PM CDT - 06/07/2025 12:20 PM CDT Surgery [facility] Interventional [place] [address] [id number] Elizabeth Ryder MD INJECTION TRIGGER POINT-cervivcal/th oracic 06/07/2025 11:05 AM CDT - 06/07/2025 11:35 AM CDT Hospital Encounter [facility] Interventional [place] [address] [id number] Elizabeth Ryder MD Discharge Disposition: Home or Self Care (Routine Discharge) 06/07/2025 Travel 06/06/2025 MyChart Message Enc [facility] Multispecialty Care - [address], [address] [place] [phone] Esau Hoff MD New appt 05/31/2025 Scan [facility] Scanned, [facility] 05/30/2025 Scan [facility]VCS Scanned, [facility] 05/30/2025 MyChart Message Enc [facility] Orthopedic & Sports Medicine - [place] [address] [place] [address] Reynaldo Bunch MD Problem from Last 3 Months Immunizations Immunization Administration [...] Sex Assigned at Female 11/14/2024 2:54 PM CREW CHIEF Legal Sex Female 11:06 AM CDT Gender Identity Female 05/11/2025 1:56 PM CDT Sexual Orientation Not on file Last Filed Vital Signs Vital Sign Reading Time Taken Comments Blood Pressure 127/52 08/07/2025 1:51 PM CDT Pulse 108 08/07/2025 1:51 PM CDT Temperature 36.2 C (97.2 F) 08/07/2025 1:20 PM CDT Respiratory Rate 20 08/07/2025 1:20 PM CDT Oxygen Saturation 98% 08/07/2025 1:51 PM CDT Inhaled Oxygen Concentration - - Weight 77.6 kg (171 lb) 07/13/2025 8:15 AM CDT Height 170.2 cm (5' 7) 07/13/2025 8:15 AM CDT Body Mass Index 26.78 07/13/2025 8:15 AM CDT Plan of Treatment Upcoming Encounters Date Type Department Care Team (Latest Contact Info) Description 09/05/2025 1:40 PM CREW CHIEF Office Visit [facility] Family & Internal Medicine [address] [phone] [place] [address] [address] [place] [address] 09/13/2025 7:40 AM CREW CHIEF Office Visit [facility] Family & Internal Medicine [address] [phone] [place] [address] [address] [place] [address] 09/17/2025 7:00 AM CREW CHIEF Office Visit [facility] Orthopedic & Sports Medicine - [place] [address] [place] [address] Merrill Hammond MD [address] [place] [address] 10/10/2025 1:40 PM CREW CHIEF Hospital Encounter [facility] Interventional [place] [address] [id number] Elizabeth Ryder MD Three [facility] [address] [place] [address] 10/10/2025 1:40 PM CREW CHIEF - 10/10/2025 2:00 PM CREW CHIEF Surgery [facility] Interventional Pain [place] [address] [id number] Elizabeth Ryder MD Three [facility] [address] [place] [address] INJECTION TRIGGER POINT 12/27/2025 10:40 AM CREW CHIEF Office Visit [facility] Multispecialty Care - [facility] [address] [facility] [address] [place] [address] Esau Hoff MD 3 [facility] [address] [place] [address] Scheduled Procedures Name Priority Associated Diagnoses Date/Ti me INJECTION TRIGGER POINT Myofascial pain 10/10/2025 1:40 PM CREW CHIEF Health Maintenance Due Date Last Done Comments Hepatitis C 1988 Hepatitis A Vaccines (1 of 2 - Risk 2-dose series) 1989 Hepatitis B Vaccines (1 of 3 - 19+ 3-dose series) 1989 Cervical Cancer Screening Pap with HPV Testing (Age 30 to 64) Every 5 Years 2000 Pneumococcal Vaccine: 50+ Years (2 of 2 - PCV) 10/21/2022 10/21/2021 DTaP, Tdap and Td Vaccines (1 - Tdap) 06/13/2024 06/12/2024 COVID-19 Vaccine (7 - season) 2025 07/17/2023, 07/31/2022, 09/06/2021, Additional history exists Influenza Adult (#1) 2025 08/11/2024, 08/11/2024, 08/10/2023, Additional history exists Annual Physical 08/30/2025 08/30/2024, 07/25, 07/31/2022, Additional history exists Mammogram Screening 12/06/2025 12/06/2023, 12/04/2022, 07/07/2021, Additional history exists Cervical Cancer Screening Pap Smear (Age 30 to 64) Every 3 Years 08/30/2027 08/30/2024, 08/10/2023, 07/31/2022, Additional history exists Cervical Cancer Screening with HPV 08/30/2027 Colorectal Cancer Screening Colonoscopy (10 Years) 05/09/2031 05/09/2021, 05/09/2021 Zoster Vaccines Completed 12/20/2021, 07/26/2021 PHQ-2 (Physician [place]) Completed 01/08/2025 Meningococcal B Vaccine Aged Out [...] Plan Autogenerated Problem No Maggie Clark V Procedures Procedure Name Priority Date/Time Associated Diagnosis Comments INJECT TRIGGER POINTS, > 3 08/07/2025 1:42 PM CDT Myofascial pain NJX INTERLAMINAR CRV/THRC 07/13/2025 9:05 AM CDT Cervical radiculopathy XR PAIN CLINIC C-ARM Today 07/13/2025 8:21 AM CDT XR FOREARM RT 2V Routine 06/20/2025 4:04 PM CDT Right forearm cellulitis INJECT TRIGGER POINT, 1 OR 2 06/07/2025 11:19 AM CDT Myofascial pain CYTOPATH CERV/VAG THIN LAYER Routine 08/30/2024 8:15 AM CREW CHIEF Cervical cancer screening MAMMOGRAM GENERIC (SCAN ORDER) 12/06/2023 COLONOSCOPY Routine 05/09/2021 7:23 AM CDT from Last 3 Months or Most Recently Relevant to Health Maintenance Results * XR PAIN CLINIC C-ARM (07/13/2025 8:21 AM CDT) Narrative Radiology, Technologist - 07/13/2025 8:21 AM CDT This report does not contain a radiologist's interpretation. Please review associated procedure and/or operative report. Elizabeth Ryder MD GENERAL IMAGING Final Result * XR FOREARM RT 2V (06/20/2025 4:04 PM CDT) Anatomical Region Laterality Modality Forearm Radiographic Nikki ging 06/21/2025 7:15 AM CDT Impressions 06/21/2025 7:17 AM CDT IMPRESSION: No acute osseous abnormality. Ordered By: ALIE MENDOZA Interpreted By: Flakito Sousa, 06/21/2025 7:15 AM Narrative 06/21/2025 7:17 AM CDT [facility] [address] [facility] [place] [address] IMAGING STUDIES: XR FOREARM RT 2V DATE: 06/20/2025 4:04 PM COMPARISON: No comparisons. CLINICAL HISTORY: right forearm pain and swelling after steroid shot . FINDINGS: There is no evidence of acute fracture, dislocation, or osseous erosion. No radiopaque foreign bodies or abnormal soft tissue calcifications noted. Normal Contour to the radial head. Procedure Note Austen Sousa MD - 06/21/2025 [facility] [address] [place] [address] IMAGING STUDIES: XR FOREARM RT 2V DATE: 06/20/2025 4:04 PM COMPARISON: No comparisons. CLINICAL HISTORY: right forearm pain and swelling after steroid shot. FINDINGS: There is no evidence of acute fracture, dislocation, or osseous erosion. No radiopaque foreign bodies or abnormal soft tissue calcificationsnoted. Normal Contour to the radial head. IMPRESSION: No acute osseous abnormality. Ordered By: ALIE MENDOZA Interpreted By: Flakito Sousa, 06/21/2025 7:15 AM Alie Mendoza PRECISION INSTRUMENT MAKER GENERAL IMAGING Final Result * Cytopath Cerv/Vag Thin Layer (08/30/2024 8:15 AM CREW CHIEF) CLINICAL INFORMATION: Postmenopausal [place]EE[place], [place] Clinical Information: 06/23/2020 [facility] [employer] [place] Date of Last Pap NONE GIVEN [employer] [place] Previous Biopsy? NONE GIVEN [employer] [place] SOURCE (QST) Cervix, Endocervix [facility] [employer] [place] STATEMENT OF ADEQUACY: [facility] [employer] [place] Comment: Satisfactory for evaluation. Endocervical/transformation zone component absent. PAP INTERPRETATION/RESU LTS Cytology Results: Negative for intraepithelial lesion or malignancy. [place], [place] COMMENT: This Pap test has been evaluated with computer assisted technology. [place], [place] NEWSPAPER DELIVERER [place], [place] Comment: YQ, CT(ASCP) CT screening location: [place] [address] [address] [place] [address] COMMENT: [facility] [employer] [place] Comment: EXPLANATORY NOTE: The Pap is [...] and current clinical information. 08/30/2024 8:15 AM CREW CHIEF 08/31/2024 4:37 AM CREW CHIEF Narrative Resulting Agency Comment Performing Organization Information: Site ID: [id number] [facility] Address: [address] [place] [address] Director: Akbar Gore Viv METZ PATHOLOGY/CYTOLOGY ORDERABLE S Final Result [facility] [place], [place] [address] [place] [address], * MAMMOGRAM GENERIC (SCAN ORDER) (12/06/2023) Anatomical Region Laterality Modality Other 12/06/2023 [facility] Scanned SCANNING Final Resu lt from Last 3 Months or Most Recently Relevant to Health Maintenance Additional Health Concerns Active Problems Noted Date Diagnosed Date Autogenerated Problem 08/08/2025 Insurance [facility] Care Teams Heat And Frost Insulator Relationship Specialty Start [place] [address] [facility]. [address] [place] [address] PCP - General FAMILY PRACTICE 06/07/23 Alberto Avendano MD NEUROLOGICAL SURGERY 11/24/21
--- OUTSIDE RECORDS SUMMARY | 2025-08-30 15:39 | XMS_ITS | Encounter Summary ---
Author Organization [facility] Address [address] [place] [address] Care Team Providers Care Soil Science Teacher Name Role Phone Viv Hamm Primary Care Provider [phone] Alberto Avendano MD Unavailable [phone] Kylee Villanueva MD Primary Care Provider [phone] Encounter Details Date Type Department Care Team (Late st Contact Info) Description 10/05/2022 Pre-Procedure Call [facility] Interventional [place] [address] [id number] [place] [address] [address] Social History Tobacco Use Types [...] Sex Assigned at Female 11/14/2024 2:54 PM STENOTYPIST Legal Sex Female 11:06 AM CDT Gender Identity Female 05/11/2025 1:56 PM CDT Sexual Orientation Not on file COVID-19 Exposure Response Date Recorded In the last 10 days, have yo u been in contact with someone who was confirmed or suspected to have Coronavirus/COVID-19? No / Unsure 10/06/2022 7:22 AM STENOTYPIST documented as of this encounter Functional Status * Calculated C-SSRS Risk Score (Lifetime/Recent) Answer Date of Assessment Author Status No Risk Indicated 10/06/2022 7:33 AM STENOTYPIST Monica Vázquez RN Active * [place] Suicide Severity Rating Scale (Screener/Recent Self-Report) Question [...] (Latest Contact Info) Description 09/05/2025 1:40 PM STENOTYPIST Office Visit [facility] Medical [facility] Family & Internal Medicine [address] [address] Kylee Villanueva MD [address] [place] [address]. [address] [place] [address] 09/13/2025 7:40 AM STENOTYPIST Office Visit [facility] Family & Internal Medicine [address] [address] [place] [address] [address] [place] [address] [id number] 09/17/2025 7:00 AM STENOTYPIST Office Visit [facility] Medical Group Orthopedic & Sports Medicine - [place] [address] [place] [address] Merrill Hammond MD [address] [place] [address] 10/10/2025 1:40 PM STENOTYPIST Hospital Encounter [facility] Interventional [place] [address] [id number] Elizabeth Ryder MD Three [facility] [address] [place] [address] 10/10/2025 1:40 PM STENOTYPIST - 10/10/2025 2:00 PM STENOTYPIST Surgery [facility] Interventional Pain [place] [address] [id number] Elizabteh Ryder MD Three [facility] [address] [place] [address] INJECTION TRIGGER POINT 12/27/2025 10:40 AM STENOTYPIST Office Visit [facility] Medical [facility] Multispecialty Care - [facility] 3 [facility] [address] [place] [address] Esau Hoff MD 3 [facility] [address] [place] [address] Scheduled Procedures Name Priority Associated Diagnoses Date/Ti me INJECTION TRIGGER POINT Myofascial pain 10/10/2025 1:40 PM STENOTYPIST documented as of this encounter Visit Diagnoses Not on filedocumented in this encounter Additional Health Concerns Infection Onset Date Last Indicated Resolved Time COVID-19 Rule Out 12/13/2023 12/13/2023 12/13/2023 8:54 AM STENOTYPIST COVID-19 Rule Out 08/30/2024 08/30/2024 08/30/2024 8:14 AM STENOTYPIST COVID-19 Rule Out 11/03/2024 11/03/2024 11/03/2024 10:48 AM STENOTYPIST documented as of this encounter Care Teams Soil Science Teacher Relationship Specialty [place] [address] [place] [address] PCP - General PHYSICIAN AUTO BODY REPAIRMAN 02/03/21 06/06/23 [place] [address] [address] [address] PCP - General FAMILY PRACTICE 06/07/23 [place] [address] [place] [address] NEUROLOGICAL SURGERY 11/24/21 documented as of this encounter
--- OUTSIDE RECORDS SUMMARY | 2025-08-30 15:39 | XMS_ITS | Encounter Summary ---
Author Organization [facility] Address [address] [place] [address] Care Team Providers Care In Service Educator Name Role Phone Alberto Avendano MD Unavailable [phone] Kylee Villanueva MD Primary Care Provider [phone] Encounter Details Date Type Department Care Team (Late st Contact Info) Description 10/26/2024 CoAlignt Message Enc [facility] Medical Group Orthopedic & Sports Medicine - [place] [address] [place] [address] [phone] Reynaldo Bunch MD [address] [place] [address] Appointment Social History Tobacco Use Types Packs/Day [...] Sex Assigned at Female 11/14/2024 2:54 PM TAX STAFF ACCOUNTANT Legal Sex Female 11:06 AM CDT Gender Identity Female 05/11/2025 1:56 PM CDT Sexual Orientation Not on file documented as of this encounter Plan of Treatment Upcoming Encounters Date Type Department Care Team (Latest Contact Info) Description 09/05/2025 1:40 PM TAX STAFF ACCOUNTANT Office Visit [facility] Family & Internal Medicine [address] [phone] [place] [address] [place] [address] [phone] 09/13/2025 7:40 AM TAX STAFF ACCOUNTANT Office Visit [facility] Family & Internal Medicine [address] [phone] [place] [address] [place] [address] 09/17/2025 7:00 AM TAX STAFF ACCOUNTANT Office Visit [facility] Orthopedic & Sports Medicine [facility] [address] [place] [address] Merrill Hammond MD [address] [place] [address] 10/10/2025 1:40 PM TAX STAFF ACCOUNTANT Hospital Encounter [facility] Interventional Pain [place] [address] [id number] Elizabeth Ryder MD Three [facility] [address] [place] [address] 10/10/2025 1:40 PM TAX STAFF ACCOUNTANT - 10/10/2025 2:00 PM TAX STAFF ACCOUNTANT Surgery [facility] Interventional Pain [place] [address] [id number] Elizabeth Ryder MD Three [facility] [address] [place] [address] INJECTION TRIGGER POINT 12/27/2025 10:40 AM TAX STAFF ACCOUNTANT Office Visit [facility] Medical Group Multispecialty Care - [facility] 3 [facility] [address] [place] [address] Esau Hoff MD 3 [facility] [address] [place] [address] Scheduled Procedures Name Priority Associated Diagnoses Date/Ti me INJECTION TRIGGER POINT Myofascial pain 10/10/2025 1:40 PM TAX STAFF ACCOUNTANT documented as of this encounter Visit Diagnoses Not on filedocumented in this encounter Additional Health Concerns Infection Onset Date Last Indicated Resolved Time COVID-19 Rule Out 11/03/2024 11/03/2024 11/03/2024 10:48 AM TAX STAFF ACCOUNTANT documented as of this encounter Care Teams In Service Educator Relationship Specialty Start [place] [address] [facility] [place] [address] PCP - General FAMILY PRACTICE 06/07/23 Alberto Avendano MD NEUROLOGICAL SURGERY 11/24/21 documented as of this encounter
--- OUTSIDE RECORDS SUMMARY | 2025-08-30 15:39 | XMS_ITS | Encounter Summary ---
Author Organization [facility] Address [facility] [place] [address] Care Team Providers Care Perioperative Nurse Name Role Phone Viv Hamm Primary Care Provider [phone] Alberto Avendano MD Unavailable [phone] Kylee Villanueva MD Primary Care Provider [phone] Encounter Details Date Type Department Care Team (Latest Contact Info) Description 09/10/2022 MyChart Message Enc [facility] Medical Group Multispecialty Care - [facility] 3 [facility], [address] [place] [address] Shaen Noble MD 1 [place] [address] Notes from Neurosurgeon Social History Tobacco Use [...] Sex Assigned at Female 11/14/2024 2:54 PM WHEEL BLOCKER Legal Sex Female 11:06 AM CDT Gender Identity Female 05/11/2025 1:56 PM CDT Sexual Orientation Not on file COVID-19 Exposure Response Date Recorded In the last 10 days, have yo u been in contact with someone who was confirmed or suspected to have Coronavirus/COVID-19? No / Unsure 09/07/2022 3:39 PM WHEEL BLOCKER documented as of this encounter Plan of Treatment Upcoming Encounters Date Type Department Care Team (Latest Contact Info) Description 09/05/2025 1:40 PM WHEEL BLOCKER Office Visit [facility] Family & Internal Medicine [address] [address] [place] [address] [place] [address] [phone] 09/13/2025 7:40 AM WHEEL BLOCKER Office Visit [facility] Family & Internal Medicine [address] [address] [place] [address] [place] [address] 09/17/2025 7:00 AM WHEEL BLOCKER Office Visit [facility] Orthopedic & Sports Medicine [facility] [address] [place] [address] Merrill Hammond MD [address] [place] [address] 10/10/2025 1:40 PM WHEEL BLOCKER Hospital Encounter [facility] Interventional Pain Management Center ONE [place] [place] [address] [id number] Elizabeth Ryder MD Three [facility] [address] [place] [address] 10/10/2025 1:40 PM WHEEL BLOCKER - 10/10/2025 2:00 PM WHEEL BLOCKER Surgery [facility] Interventional [place] [address] [id number] Elizabeth Ryder MD Three [facility] [address] [place] [address] INJECTION TRIGGER POINT 12/27/2025 10:40 AM WHEEL BLOCKER Office Visit [facility] Medical Group Multispecialty Care - [facility] 3 [facility], [address] [place] [address] Esau Hoff MD 3 [facility] [address] [place] [address] Scheduled Procedures Name Priority Associated Diagnoses Date/Ti me INJECTION TRIGGER POINT Myofascial pain 10/10/2025 1:40 PM WHEEL BLOCKER documented as of this encounter Visit Diagnoses Not on filedocumented in this encounter Additional Health Concerns Infection Onset Date Last Indicated Resolved Time COVID-19 Rule Out 12/13/2023 12/13/2023 12/13/2023 8:54 AM WHEEL BLOCKER COVID-19 Rule Out 08/30/2024 08/30/2024 08/30/2024 8:14 AM WHEEL BLOCKER COVID-19 Rule Out 11/03/2024 11/03/2024 11/03/2024 10:48 AM WHEEL BLOCKER documented as of this encounter Care Teams Perioperative Nurse Relationship Specialty [place] [address] [place] [address] PCP - General PHYSICIAN GOODYEAR WELTER 02/03/21 06/06/23 [place] [address] [address] [place] [address] PCP - General FAMILY PRACTICE 06/07/23 [place] [address] [place] [address] NEUROLOGICAL SURGERY 11/24/21 documented as of this encounter
--- OUTSIDE RECORDS SUMMARY | 2025-08-30 15:40 | XMS_ITS | Encounter Summary ---
Author Organization [facility] Address [address] [place] [address] Care Team Providers Care Syrup Maker Cook Name Role Phone Alberto Avendano MD Unavailable [phone] Kylee Villanueva MD Primary Care Provider Encounter Details Date Type Department Care Team (Late st Contact Info) Description 03/01/2025 Broadersheet Message [facility] Interventional [place] [address] [id number] M[facility]om[facility]uel, [facility] Provider Ref Social History Tobacco Use Types [...] Sex Assigned at Female 11/14/2024 2:54 PM INSPECTOR BALANCE BRIDGE Legal Sex Female 11:06 AM CDT Gender Identity Female 05/11/2025 1:56 PM CDT Sexual Orientation Not on file documented as of this encounter Plan of Treatment Upcoming Encounters Date Type Department Care Team (Latest Contact Info) Description 09/05/2025 1:40 PM INSPECTOR BALANCE BRIDGE Office Visit [facility] Family & Internal Medicine [address] [phone] [place] [address] [place] [address] 09/13/2025 7:40 AM INSPECTOR BALANCE BRIDGE Office Visit [facility] Family & Internal [address] [phone] [place] [address] [place] [address] 09/17/2025 7:00 AM INSPECTOR BALANCE BRIDGE Office Visit [facility] Orthopedic & Sports Medicine - [place] [address] [place] [address] Merrill Hammond MD [address] [place] [address] 10/10/2025 1:40 PM INSPECTOR BALANCE BRIDGE Hospital Encounter [facility] Interventional [place] [address] [id number] Elizabeth Ryder MD Three [facility] [address] [place] [address] 10/10/2025 1:40 PM INSPECTOR BALANCE BRIDGE - 10/10/2025 2:00 PM INSPECTOR BALANCE BRIDGE Surgery [facility] Interventional [place] [address] [id number] Elizabeth Ryder MD Three [facility] [address] [place] [address] INJECTION TRIGGER POINT 12/27/2025 10:40 AM INSPECTOR BALANCE BRIDGE Office Visit [facility] Medical Group Multispecialty Care - [facility] 3 [facility] [address] [place] [address] Esau Hoff MD 3 [facility] [address] [place] [address] Scheduled Procedures Name Priority Associated Diagnoses Date/Ti me INJECTION TRIGGER POINT Myofascial pain 10/10/2025 1:40 PM INSPECTOR BALANCE BRIDGE documented as of this encounter Visit Diagnoses Not on filedocumented in this encounter Additional Health Concerns Assessment Noted Time PHQ-9 Depression Total Score: 2 12/11/19 25 1:50 PM INSPECTOR BALANCE BRIDGE documented as of this encounter Care Teams Syrup Maker Cook Relationship Specialty Start [place] [address] [facility] [address] [place] [address] PCP - General FAMILY PRACTICE 06/07/23 Alberto Avendano MD NEUROLOGICAL SURGERY 11/24/21 documented as of this encounter
--- OUTSIDE RECORDS SUMMARY | 2025-08-30 15:40 | XMS_ITS | Encounter Summary ---
Author Organization [facility] Address [facility] [place] [address] Care Team Providers Care Certified Orthotist Name Role Phone Viv Hamm Primary Care Provider [phone] Alberto Avendano MD Unavailable [phone] Kylee Villanueva MD Primary Care Provider [phone] Encounter Details Date Type Department Care Team (Late st Contact Info) Description 06/04/2022 MyChart Message Enc [facility] Medical Group Family & Internal Medicine [facility] [address] [place] [address] [place] Hamm [place] [id number] [place] [address] [address] Scan Results Social History Tobacco [...] Sex Assigned at Female 11/14/2024 2:54 PM WOOD CRAFTER Legal Sex Female 11:06 AM CDT Gender [...] AM CDT Denilson Roque RN Active * [place] Suicide Severity Rating Scale (Screener/Recent Self-Report) Question [...] (Latest Contact Info) Description 09/05/2025 1:40 PM WOOD CRAFTER Office Visit [facility] Family & Internal Medicine [address] [address] Kylee Villanueva MD [address] [place] [address] [place] [address] 09/13/2025 7:40 AM WOOD CRAFTER Office Visit [facility] Family & Internal Medicine [address] [address] [place] [address] [address] [place] [address] 09/17/2025 7:00 AM WOOD CRAFTER Office Visit [facility] Medical Group Orthopedic & Sports Medicine - [place] [address] [place] [address] Merrill Hammond MD [address] [place] [address] 10/10/2025 1:40 PM WOOD CRAFTER Hospital Encounter [facility] Interventional Pain [place] [address] [id number] Elizabeth Ryder MD Three [facility] [address] [place] [address] 10/10/2025 1:40 PM WOOD CRAFTER - 10/10/2025 2:00 PM WOOD CRAFTER Surgery [facility] Interventional Pain [place] [address] [id number] Elizabeth Ryder MD Three [facility] [address] [place] [address] INJECTION TRIGGER POINT 12/27/2025 10:40 AM WOOD CRAFTER Office Visit [facility] Multispecialty Care - [facility] 3 [facility] [address] [place] [address] Esau Hoff MD 3 [facility] [address] [place] [address] Scheduled Procedures Name Priority Associated Diagnoses Date/Ti me INJECTION TRIGGER POINT Myofascial pain 10/10/2025 1:40 PM WOOD CRAFTER documented as of this encounter Visit Diagnoses Not on filedocumented in this encounter Additional Health Concerns Infection Onset Date Last Indicated Resolved Time COVID-19 Rule Out 12/13/2023 12/13/2023 12/13/2023 8:54 AM WOOD CRAFTER COVID-19 Rule Out 08/30/2024 08/30/2024 08/30/2024 8:14 AM WOOD CRAFTER COVID-19 Rule Out 11/03/2024 11/03/2024 11/03/2024 10:48 AM WOOD CRAFTER documented as of this encounter Care Teams Certified Orthotist Relationship Specialty [place] [address] [place] [address] PCP - General PHYSICIAN SENIOR WRITER 02/03/21 06/06/23 [place] [address] [address] [place] [address] PCP - General FAMILY PRACTICE 06/07/23 [place] [address] [place] [address] NEUROLOGICAL SURGERY 11/24/21 documented as of this encounter
--- OUTSIDE RECORDS SUMMARY | 2025-08-30 15:40 | XMS_ITS | Encounter Summary ---
Author Organization [facility] Address [address] [place] [address] Care Team Providers Care Table Inspector Name Role Phone Alberto Avendano MD Unavailable [phone] Kylee Villanueva MD Primary Care Provider [phone] Encounter Details Date Type Department Care Team (Late st Contact Info) Description 02/19/2025 Intarcia Therapeuticst Message Enc [facility] Medical Group Orthopedic & Sports Medicine - [place] [address] [place] [address] Merrill Hammond MD [address] [place] [address] Test results Social History Tobacco Use Types [...] Assigned at Female 11/14/2024 2:54 PM PATIENT ACCESS ASSOCIATE Legal Sex Female 11:06 AM CDT Gender Identity Female 05/11/2025 1:56 PM CDT Sexual Orientation Not on file documented as of this encounter Plan of Treatment Upcoming Encounters Date Type Department Care Team (Latest Contact Info) Description 09/05/2025 1:40 PM PATIENT ACCESS ASSOCIATE Office Visit [facility] Family & Internal Medicine [address] [phone] [place] [address] [place] [phone] 09/13/2025 7:40 AM PATIENT ACCESS ASSOCIATE Office Visit [facility] Family & Internal Medicine [address] [phone] [place] [address] [place] [address] 09/17/2025 7:00 AM PATIENT ACCESS ASSOCIATE Office Visit [facility] Orthopedic & Sports Medicine [facility] [address] [place] [address] Merrill Hammond MD [address] [place] [address] 10/10/2025 1:40 PM PATIENT ACCESS ASSOCIATE Hospital Encounter [facility] Interventional Pain [place] [address] [id number] Elizabeth Ryder MD Three [facility] [address] [place] [address] 10/10/2025 1:40 PM PATIENT ACCESS ASSOCIATE - 10/10/2025 2:00 PM PATIENT ACCESS ASSOCIATE Surgery [facility] Interventional Pain [place] [address] [id number] Elizabeth Ryder MD Three [facility] [address] [place] [address] INJECTION TRIGGER POINT 12/27/2025 10:40 AM PATIENT ACCESS ASSOCIATE Office Visit [facility] Medical Group Multispecialty Care - [facility] 3 [facility] [address] [place] [address] Esau Hoff MD 3 [facility] [address] [place] [address] Scheduled Procedures Name Priority Associated Diagnoses Date/Ti me INJECTION TRIGGER POINT Myofascial pain 10/10/2025 1:40 PM PATIENT ACCESS ASSOCIATE documented as of this encounter Visit Diagnoses Not on filedocumented in this encounter Additional Health Concerns Assessment Noted Time PHQ-9 Depression Total Score: 2 12/11/19 25 1:50 PM PATIENT ACCESS ASSOCIATE documented as of this encounter Care Teams Table Inspector Relationship Specialty Start [place] [address] [facility] [address] [place] [address] PCP - General FAMILY PRACTICE 06/07/23 Alberto Avendano MD NEUROLOGICAL SURGERY 11/24/21 documented as of this encounter
--- OUTSIDE RECORDS SUMMARY | 2025-08-30 15:40 | XMS_ITS | Encounter Summary ---
Author Organization [facility] Address [address] [place] [address] Care Team Providers Care Underwriting Intern Name Role Phone Alberto Avendano MD Unavailable [phone] Kylee Villanueva MD Primary Care Provider [phone] Encounter Details Date Type Department Care Team (Late st Contact Info) Description 03/01/2025 Octamert Message Enc [facility] Interventional Pain Management Center [place] [phone] [id number] Elizabeth Ryder MD Three [facility] [address] [place] [address] Referral Social History Tobacco Use [...] Sex Assigned at Female 11/14/2024 2:54 PM FLASK CLEANER Legal Sex Female 11:06 AM CDT Gender Identity Female 05/11/2025 1:56 PM CDT Sexual Orientation Not on file documented as of this encounter Plan of Treatment Upcoming Encounters Date Type Department Care Team (Latest Contact Info) Description 09/05/2025 1:40 PM FLASK CLEANER Office Visit [facility] Family & Internal Medicine [address] [phone] [place] [address] [place] [phone] 09/13/2025 7:40 AM FLASK CLEANER Office Visit [facility] Family & Internal [address] [address] [place] [address] [place] [address] 09/17/2025 7:00 AM FLASK CLEANER Office Visit [facility] Orthopedic & Sports Medicine [facility] [address] [place] [address] Merrill Hammond MD [address] [place] [address] 10/10/2025 1:40 PM FLASK CLEANER Hospital Encounter [facility] Interventional Pain Management Center [place], [place] [address] [id number] Elizabeth Ryder MD Three [facility] [address] [place] [address] 10/10/2025 1:40 PM FLASK CLEANER - 10/10/2025 2:00 PM FLASK CLEANER Surgery [facility] Interventional Pain Management Center ONE [facility] [place] [address] [id number] Elizabeth Ryder MD Three [facility] [address] [place] [address] INJECTION TRIGGER POINT 12/27/2025 10:40 AM FLASK CLEANER Office Visit [facility] Medical Group Multispecialty Care - [facility] 3 [facility] [address] [place] [address] Esau Hoff MD 3 [facility] [address] [place] [address] Scheduled Procedures Name Priority Associated Diagnoses Date/Ti me INJECTION TRIGGER POINT Myofascial pain 10/10/2025 1:40 PM FLASK CLEANER documented as of this encounter Visit Diagnoses Not on filedocumented in this encounter Additional Health Concerns Assessment Noted Time PHQ-9 Depression Total Score: 2 12/11/19 25 1:50 PM FLASK CLEANER documented as of this encounter Care Teams Underwriting Intern Relationship Specialty Start [place] [address] [facility] [place] [address] PCP - General FAMILY PRACTICE 06/07/23 Alberto Avendano MD NEUROLOGICAL SURGERY 11/24/21 documented as of this encounter
--- OUTSIDE RECORDS SUMMARY | 2025-08-30 15:40 | XMS_ITS | Encounter Summary ---
Author Organization [facility] Address [address] [place] [address] Care Team Providers Care Weather Reporter Name Role Phone Alberto Avendano MD Unavailable [phone] Kylee Villanueva MD Primary Care Provider [phone] Reason for Referral * Surgical (Routine) - Closed Specialty Diagnoses / Procedures Referred By Contac t Referred To Contact Diagnoses Cervical stenosis of spinal canal Procedures Case request operating room: INJECTION EPIDURAL STEROID [id number] Jacob Middleton CNP [address] [address] Phone: tel: [phone] fax: Referral ID Status Reason Start Date Expiration Date Visits Re quested Visits Authorized [id number] Closed 07/19/2024 07/19/2025 1 1 Encounter Details Date Type Department Care Team (Late st Contact Info) Description 07/19/2024 Prep for Procedure [facility] [place] [address] [id number] Jacob Middleton CNP [address] [phone] (Work) Social History Tobacco Use Types Packs/Day [...] Sex Assigned at Female 11/14/2024 2:54 PM BANQUET SERVER Legal Sex Female 11:06 AM CDT Gender Identity Female 05/11/2025 1:56 PM CDT Sexual Orientation Not on file documented as of this encounter Plan of Treatment Upcoming Encounters Date Type Department Care Team (Latest Contact Info) Description 09/05/2025 1:40 PM BANQUET SERVER Office Visit [facility] Family & Internal Medicine [address] [phone] [place] [address] [facility] [address] [place] [address] 09/13/2025 7:40 AM BANQUET SERVER Office Visit [facility] Family & Internal Medicine [facility] [address] [place] [phone] [place] [address] [facility] [place] [address] 09/17/2025 7:00 AM BANQUET SERVER Office Visit [facility] Orthopedic & Sports Medicine [place] [address] [place] [address] Merrill Hammond MD [address] [place] [address] 10/10/2025 1:40 PM BANQUET SERVER Hospital Encounter [facility] Inter[facility] [place] [address] [id number] Elizabeth Ryder MD Three [facility] [address] [place] [address] 10/10/2025 1:40 PM BANQUET SERVER - 10/10/2025 2:00 PM BANQUET SERVER Surgery [facility] [place] [address] [id number] Elizabeth Ryder MD Three [facility] [address] [place] [address] INJECTION TRIGGER POINT 12/27/2025 10:40 AM BANQUET SERVER Office Visit [facility] Medical Group Multispecialty Care - [facility] 3 [facility], [address] [place] [phone] Esau Hoff MD 3 [facility] [address] [place] [address] Scheduled Procedures Name Priority Associated Diagnoses Date/Ti me INJECTION TRIGGER POINT Myofascial pain 10/10/2025 1:40 PM BANQUET SERVER documented as of this encounter Visit Diagnoses Diagnosis Cervical stenosis of spinal canal- Primary Spinal stenosis in cervical region Myofascial pain Mylagia and myositis, unspecified documented in this encounter Additional Health Concerns Infection Onset Date Last Indicated Resolved Time COVID-19 Rule Out 08/30/2024 08/30/2024 08/30/2024 8:14 AM BANQUET SERVER COVID-19 Rule Out 11/03/2024 11/03/2024 11/03/2024 10:48 AM BANQUET SERVER documented as of this encounter Care Teams Weather Reporter Relationship Specialty Start [place] [address] [facility] [address] [place], [place] [id number] PCP - General FAMILY PRACTICE 06/07/23 Alberto Avendano MD NEUROLOGICAL SURGERY 11/24/21 documented as of this encounter
--- OUTSIDE RECORDS SUMMARY | 2025-08-30 15:40 | XMS_ITS | Encounter Summary ---
Author Organization [facility] Address [address] [place] [address] Care Team Providers Care Machine Puller Name Role Phone Alberto Avendano MD Unavailable [phone] Kylee Villanueva MD Primary Care Provider [phone] Encounter Details Date Type Department Care Team (Late st Contact Info) Description 04/30/2025 WebLinct Message Enc [facility] Medical Group Orthopedic & Sports Medicine - [place] [address] [place] [address] Reynaldo Bunch MD [address] [place] [address] Question Social History Tobacco Use Types Packs/Day [...] Sex Assigned at Female 11/14/2024 2:54 PM TOOTH CUTTER SPUR Legal Sex Female 11:06 AM CDT Gender Identity Female 05/11/2025 1:56 PM CDT Sexual Orientation Not on file documented as of this encounter Plan of Treatment Upcoming Encounters Date Type Department Care Team (Latest Contact Info) Description 09/05/2025 1:40 PM TOOTH CUTTER SPUR Office Visit [facility] Family & Internal Medicine [address] [phone] [place] [address] [place] [address] [phone] 09/13/2025 7:40 AM TOOTH CUTTER SPUR Office Visit [facility] Family & Internal [address] [phone] [place] [address] [place] [address] 09/17/2025 7:00 AM TOOTH CUTTER SPUR Office Visit [facility] Orthopedic & Sports Medicine [facility] [address] [place] [address] Merrill Hammond MD [address] [place] [address] 10/10/2025 1:40 PM TOOTH CUTTER SPUR Hospital Encounter [facility] Interventional [place] [address] [id number] Elizabeth Ryder MD Three [facility] [address] [place] [address] 10/10/2025 1:40 PM TOOTH CUTTER SPUR - 10/10/2025 2:00 PM TOOTH CUTTER SPUR Surgery [facility] Interventional [place] [address] [phone] Elizabeth Ryder MD Three [facility] [address] [place] [address] INJECTION TRIGGER POINT 12/27/2025 10:40 AM TOOTH CUTTER SPUR Office Visit [facility] Medical Group Multispecialty Care - [facility] 3 [facility] [address] [place] [address] Esau Hoff MD 3 [facility] [address] [place] [address] Scheduled Procedures Name Priority Associated Diagnoses Date/Ti me INJECTION TRIGGER POINT Myofascial pain 10/10/2025 1:40 PM TOOTH CUTTER SPUR documented as of this encounter Visit Diagnoses Not on filedocumented in this encounter Additional Health Concerns Assessment Noted Time PHQ-9 Depression Total Score: 2 12/11/19 25 1:50 PM TOOTH CUTTER SPUR documented as of this encounter Care Teams Machine Puller Relationship Specialty [place] [address] [facility] [address] [place] [address] PCP - General FAMILY PRACTICE 06/07/23 Alberto Avendano MD NEUROLOGICAL SURGERY 11/24/21 documented as of this encounter
--- OUTSIDE RECORDS SUMMARY | 2025-08-30 15:40 | XMS_ITS | Encounter Summary ---
Author Organization [facility] Address [facility] [place] [address] Care Team Providers Care Enrollment Management Manager Name Role Phone Viv Hamm Primary Care Provider [phone] Alberto Avendano MD Unavailable [phone] Kylee Villanueva MD Primary Care Provider [phone] Encounter Details Date Type Department Care Team (Latest Contact Info) Description 01/25/2022 MyChart Message Enc [facility] Medical Group Multispecialty Care - [facility] 3 [facility], [address] [place] [address] Shane Noble MD 1 [place] [address] Notes from Neurosurgeons Appts Social History Tobacco [...] Sex Assigned at Female 11/14/2024 2:54 PM [employer] Legal Sex Female 11:06 AM CDT Gender [...] (Latest Contact Info) Description 09/05/2025 1:40 PM [employer] Office Visit [facility] Family & Internal Medicine [address] [phone] [place] [address] [facility]. [address] [place] [address] [phone] 09/13/2025 7:40 AM [employer] [address] Office Visit [facility] Family & Internal Medicine [address] [phone] [place] [address] [employer] [facility]. [address] [place] [address] [phone] 09/17/2025 7:00 AM [employer] [address] Office Visit [facility] Orthopedic & Sports Medicine [facility] [address] [place] [address] Merrill Hammond MD [address] [place] [address] 10/10/2025 1:40 PM [employer] [address] [employer] [address] Hospital Encounter [facility] Interventional Pain [place] [address] [id number] Elizabeth Ryder MD Three [facility] [address] [place] [address] 10/10/2025 1:40 PM [employer] [place] [address] - 10/10/2025 2:00 PM [employer] [address] Surgery [facility] Interventional Pain [place] [address] [id number] Elizabeth Ryder MD Three [facility] [address] [place] [address] INJECTION TRIGGER POINT 12/27/2025 10:40 AM [employer] [employer] [address] Office Visit [facility] Medical Group Multispecialty Care - [facility] 3 [facility] [address] [place] [address] Esau Hoff MD 3 [facility] [address] [place] [address] Scheduled Procedures Name Priority Associated Diagnoses Date/Ti me INJECTION TRIGGER POINT Myofascial pain 10/10/2025 1:40 PM [employer] [place] [employer] [address] documented as of this encounter Visit Diagnoses Not on filedocumented in this encounter Additional Health Concerns Infection Onset Date Last Indicated Resolved Time COVID-19 Rule Out 12/13/2023 12/13/2023 12/13/2023 8:54 AM [employer] [address] COVID-19 Rule Out 08/30/2024 08/30/2024 08/30/2024 8:14 AM [employer] [address] COVID-19 Rule Out 11/03/2024 11/03/2024 11/03/2024 10:48 AM [employer] [address] documented as of this encounter Care Teams Enrollment Management Manager Relationship Specialty [place] [address] [place] [address] PCP - General PHYSICIAN ROOF BOLTING COAL MINER 02/03/21 06/06/23 [place] [address] [address] [place] [address] PCP - General FAMILY PRACTICE 06/07/23 [place] [address] [place] [address] NEUROLOGICAL SURGERY 11/24/21 documented as of this encounter
--- OUTSIDE RECORDS SUMMARY | 2025-08-30 15:40 | XMS_ITS | Encounter Summary ---
Author Organization [facility] Address [address] [place] [address] Care Team Providers Care Flask Cleaner Name Role Phone Alberto Avendano MD Unavailable [phone] Kylee Villanueva MD Primary Care Provider [phone] Encounter Details Date Type Department Care Team (Late st Contact Info) Description 02/20/2025 Attractive Black Singles [employer]Ct Message Enc [facility] Medical Group Orthopedic & Sports Medicine - [place] [address] [place] [address] [phone] Reynaldo Bunch MD [address] [place] [address] Restrictions Social History Tobacco Use Types Packs/Day [...] Sex Assigned at Female 11/14/2024 2:54 PM SOFTWARE QUALITY ASSURANCE ANALYST Legal Sex Female 11:06 AM CDT Gender Identity Female 05/11/2025 1:56 PM CDT Sexual Orientation Not on file documented as of this encounter Plan of Treatment Upcoming Encounters Date Type Department Care Team (Latest Contact Info) Description 09/05/2025 1:40 PM SOFTWARE QUALITY ASSURANCE ANALYST Office Visit [facility] Family & Internal Medicine [address] [phone] [place] [address] [place] [address] [phone] 09/13/2025 7:40 AM SOFTWARE QUALITY ASSURANCE ANALYST Office Visit [facility] Family & Internal Medicine [address] [phone] [place] [address] [place] [address] 09/17/2025 7:00 AM SOFTWARE QUALITY ASSURANCE ANALYST Office Visit [facility] Orthopedic & Sports Medicine [facility] [address] [place] [address] Merrill Hammond MD [address] [place] [address] 10/10/2025 1:40 PM SOFTWARE QUALITY ASSURANCE ANALYST Hospital Encounter [facility] Interventional Pain [place] [address] [id number] Elizabeth Ryder MD Three [facility] [address] [place] [address] 10/10/2025 1:40 PM SOFTWARE QUALITY ASSURANCE ANALYST - 10/10/2025 2:00 PM SOFTWARE QUALITY ASSURANCE ANALYST Surgery [facility] Interventional Pain [place] [address] [phone] Elizabeth Ryder MD Three [facility] [address] [place] [address] INJECTION TRIGGER POINT 12/27/2025 10:40 AM SOFTWARE QUALITY ASSURANCE ANALYST Office Visit [facility] Medical Group Multispecialty Care - [facility] 3 [facility] [address] [place] [address] Esau Hoff MD 3 [facility] [address] [place] [address] Scheduled Procedures Name Priority Associated Diagnoses Date/Ti me INJECTION TRIGGER POINT Myofascial pain 10/10/2025 1:40 PM SOFTWARE QUALITY ASSURANCE ANALYST documented as of this encounter Visit Diagnoses Not on filedocumented in this encounter Additional Health Concerns Assessment Noted Time PHQ-9 Depression Total Score: 2 12/11/19 25 1:50 PM SOFTWARE QUALITY ASSURANCE ANALYST documented as of this encounter Care Teams Flask Cleaner Relationship Specialty Start [place] [address] [facility] [address] [place] [address] PCP - General FAMILY PRACTICE 06/07/23 Alberto Avendano MD NEUROLOGICAL SURGERY 11/24/21 documented as of this encounter
--- OUTSIDE RECORDS SUMMARY | 2025-08-30 15:40 | XMS_ITS | Encounter Summary ---
Author Organization [facility] Address [facility] [place] [address] Care Team Providers Care Hardware Sales Assistant Name Role Phone Viv Hamm Primary Care Provider [phone] Alberto Avendano MD Unavailable [phone] Kylee Villanueva MD Primary Care Provider [phone] Encounter Details Date Type Department Care Team (Late st Contact Info) Description 06/04/2022 MyChart Message Enc [facility] Medical Group Multispecialty Care - [facility] 3 [facility], [address] [place] [address] Shane Noble MD 1 [place] [address] Gabapentin Social History Tobacco Use Types Packs/Day [...] Sex Assigned at Female 11/14/2024 2:54 PM DEPUTY CHIEF EXECUTIVE Legal Sex Female 11:06 AM CDT Gender [...] AM CDT Denilson Roque RN Active * [place] Suicide Severity Rating Scale (Screener/Recent Self-Report) Question [...] (Latest Contact Info) Description 09/05/2025 1:40 PM DEPUTY CHIEF EXECUTIVE Office Visit [facility] Family & Internal Medicine [address] [phone] [place] [address] [place] [address] [phone] 09/13/2025 7:40 AM DEPUTY CHIEF EXECUTIVE Office Visit [facility] Family & Internal [address] [phone] [place] [address] [place] [address] 09/17/2025 7:00 AM DEPUTY CHIEF EXECUTIVE Office Visit [facility] Orthopedic & Sports Medicine [facility] [address] [place] [address] Merrill Hammond MD [address] [place] [address] 10/10/2025 1:40 PM DEPUTY CHIEF EXECUTIVE Hospital Encounter [facility] Interventional [place] [address] [id number] Elizabeth Ryder MD Three [facility] [address] [place] [address] 10/10/2025 1:40 PM DEPUTY CHIEF EXECUTIVE - 10/10/2025 2:00 PM DEPUTY CHIEF EXECUTIVE Surgery [facility] Interventional Pain Management Center ONE [facility] [place] [address] [id number] Elizabeth Ryder MD Three [facility] [address] [place] [address] INJECTION TRIGGER POINT 12/27/2025 10:40 AM DEPUTY CHIEF EXECUTIVE Office Visit [facility] Medical Group Multispecialty Care - [facility] 3 [facility] [address] [place] [address] Esau Hoff MD 3 [facility] [address] [place] [address] Scheduled Procedures Name Priority Associated Diagnoses Date/Ti me INJECTION TRIGGER POINT Myofascial pain 10/10/2025 1:40 PM DEPUTY CHIEF EXECUTIVE documented as of this encounter Visit Diagnoses Not on filedocumented in this encounter Additional Health Concerns Infection Onset Date Last Indicated Resolved Time COVID-19 Rule Out 12/13/2023 12/13/2023 12/13/2023 8:54 AM DEPUTY CHIEF EXECUTIVE COVID-19 Rule Out 08/30/2024 08/30/2024 08/30/2024 8:14 AM DEPUTY CHIEF EXECUTIVE COVID-19 Rule Out 11/03/2024 11/03/2024 11/03/2024 10:48 AM DEPUTY CHIEF EXECUTIVE documented as of this encounter Care Teams Hardware Sales Assistant Relationship Specialty [place] [address] [place] [address] PCP - General PHYSICIAN RETAIL ADVERTISING EXECUTIVE 02/03/21 06/06/23 [place] [address] [facility]. [address] [place] [address] PCP - General FAMILY PRACTICE 06/07/23 [place] [address] [place] [address] NEUROLOGICAL SURGERY 11/24/21 documented as of this encounter
--- OUTSIDE RECORDS SUMMARY | 2025-08-30 15:40 | XMS_ITS | Encounter Summary ---
Author Organization [facility] Address [address] [place] [address] Care Team Providers Care Jersey Knitter Name Role Phone Viv Hamm Primary Care Provider [phone] Alberto Avendano MD Unavailable [phone] Kylee Villanueva MD Primary Care Provider [phone] Reason for Referral * Imaging (Routine) - Closed Specialty Diagnoses / Procedures Referred By Ramonita t Referred To Contact RADIOLOGY Diagnoses Elevated LFTs Bloating Procedures [place] [address] [place] [address] Phone: tel: fax: Referral ID Status Reason Start Date Expiration Date Visits Re quested Visits Authorized [id number] Closed 03/17/2022 04/17/2023 1 1 Encounter Details Date Type Department Care Team (Late st Contact Info) Description 03/17/2022 MyChart Message Enc [facility] Medical Group Family & Internal Medicine [facility] [address] [place] [address] [place] [address] [place] [address] Lab Results Social History Tobacco [...] Sex Assigned at Female 11/14/2024 2:54 PM ELECTRONICS INSTRUCTOR Legal Sex Female 11:06 AM CDT Gender [...] (Latest Contact Info) Description 09/05/2025 1:40 PM ELECTRONICS INSTRUCTOR Office Visit [facility] Family & Internal Medicine [address] [phone] [place] [address] [facility] [place] [address] 09/13/2025 7:40 AM ELECTRONICS INSTRUCTOR Office Visit [facility] Family & Internal Medicine [address] [phone] [place] [address] [facility] [facility]. [address] [place] [address] 09/17/2025 7:00 AM ELECTRONICS INSTRUCTOR Office Visit [facility] Orthopedic [facility] Sports [facility] [address] Merrill Hammond MD [address] [place] [address] 10/10/2025 1:40 PM ELECTRONICS INSTRUCTOR Hospital Encounter [facility] Interventional Pain [place] [address] [id number] Elizabeth Ryder MD Three [facility] [address] [place] [address] 10/10/2025 1:40 PM ELECTRONICS INSTRUCTOR - 10/10/2025 2:00 PM ELECTRONICS INSTRUCTOR Surgery [facility] Interventional Pain [place] [address] [phone] Elizabeth Ryder MD Three [facility] Suite [facility] [place] [address] INJECTION TRIGGER POINT 12/27/2025 10:40 AM ELECTRONICS INSTRUCTOR Office Visit [facility] Medical Group Multispecialty Care - [facility] 3 [facility] [address] [place] [address] Esau Hoff MD 3 [facility] [address] [place] [address] Scheduled Procedures Name Priority Associated Diagnoses Date/Ti me INJECTION TRIGGER POINT Myofascial pain 10/10/2025 1:40 PM ELECTRONICS INSTRUCTOR documented as of this encounter Results * [...] x 5.0 x 5.5 cm. Ordered By: VIV HAMM Interpreted By: Marzena Garcia, 03/25/2022 10:26 [...] x 5.0 x 5.5 cm. Ordered By: VIV HAMM Interpreted By: Marzena Garcia, 03/25/2022 10:26 AM Viv METZ ULTRASOUND Final Result documented in this encounter Visit Diagnoses Diagnosis Elevated LFTs- Primary Other abnormal blood chemistry Bloating Flatulence, eructation, and gas pain Edema, unspecified type Elevated LFTs Other abnormal blood chemistry Bloating Flatulence, eructation, and gas pain Myofascial pain Mylagia and myositis, unspecified documented in this encounter Additional Health Concerns Infection Onset Date Last Indicated Resolved Time COVID-19 Rule Out 12/13/2023 12/13/2023 12/13/2023 8:54 AM ELECTRONICS INSTRUCTOR COVID-19 Rule Out 08/30/2024 08/30/2024 08/30/2024 8:14 AM ELECTRONICS INSTRUCTOR COVID-19 Rule Out 11/03/2024 11/03/2024 11/03/2024 10:48 AM ELECTRONICS INSTRUCTOR documented as of this encounter Care Teams Jersey Knitter Relationship Specialty [place] [address] [place] [address] PCP - General PHYSICIAN SHAPING MACHINE TENDER 02/03/21 06/06/23 [place] [address] [address] [place] [address] PCP - General FAMILY PRACTICE 06/07/23 [place] [address] [place] [address] NEUROLOGICAL SURGERY 11/24/21 documented as of this encounter
--- OUTSIDE RECORDS SUMMARY | 2025-08-30 15:40 | XMS_ITS | Encounter Summary ---
Author Organization [facility] Address [address] [place] [address] Care Team Providers Care Senior Controls Engineer Name Role Phone Alberto Avendano MD Unavailable [phone] Kylee Villanueva MD Primary Care Provider [phone] Encounter Details Date Type Department Care Team (Late st Contact Info) Description 09/29/2024 WiN MS Message Enc [facility] [place] [address] [id number] Elizabeth Ryder MD Three [facility] [address] [place] [address] Question Social History Tobacco Use [...] Sex Assigned at Female 11/14/2024 2:54 PM PRINCIPAL WEB DEVELOPER Legal Sex Female 11:06 AM CDT Gender Identity Female 05/11/2025 1:56 PM CDT Sexual Orientation Not on file documented as of this encounter Plan of Treatment Upcoming Encounters Date Type Department Care Team (Latest Contact Info) Description 09/05/2025 1:40 PM PRINCIPAL WEB DEVELOPER Office Visit [facility] Family & Internal Medicine [address] [address] [place] [address] [place] [address] [phone] 09/13/2025 7:40 AM PRINCIPAL WEB DEVELOPER Office Visit [facility] Family & Internal [address] [address] [place] [address] [place] [address] 09/17/2025 7:00 AM PRINCIPAL WEB DEVELOPER Office Visit [facility] Orthopedic & Sports Medicine [facility] [address] [place] [address] Merrill Hammond MD [address] [place] [address] 10/10/2025 1:40 PM PRINCIPAL WEB DEVELOPER Hospital Encounter [facility] Center [place], [place] [address] [id number] Elizabeth Ryder MD Three [facility] [address] [place] [address] 10/10/2025 1:40 PM PRINCIPAL WEB DEVELOPER - 10/10/2025 2:00 PM PRINCIPAL WEB DEVELOPER Surgery [facility] Center ONE [place] [address] [id number] Elizabeth Ryder MD Three [facility] [address] [place] [address] INJECTION TRIGGER POINT 12/27/2025 10:40 AM PRINCIPAL WEB DEVELOPER Office Visit [facility] Medical Group Multispecialty Care - [facility] [address] [facility] [address] [place] [address] Esau Hoff MD 3 [facility] [address] [place] [address] Scheduled Procedures Name Priority Associated Diagnoses Date/Ti me INJECTION TRIGGER POINT Myofascial pain 10/10/2025 1:40 PM PRINCIPAL WEB DEVELOPER documented as of this encounter Visit Diagnoses Not on filedocumented in this encounter Additional Health Concerns Infection Onset Date Last Indicated Resolved Time COVID-19 Rule Out 11/03/2024 11/03/2024 11/03/2024 10:48 AM PRINCIPAL WEB DEVELOPER documented as of this encounter Care Teams Senior Controls Engineer Relationship Specialty [place] [address] [facility] [facility] [address] [place] [address] PCP - General FAMILY PRACTICE 06/07/23 Alberto Avendano MD NEUROLOGICAL SURGERY 11/24/21 documented as of this encounter
--- OUTSIDE RECORDS SUMMARY | 2025-08-30 15:40 | XMS_ITS | Encounter Summary ---
Author Organization [facility] Address Replaced by [facility] [place] [address] Care Team Providers Care Molding Manager Name Role Phone Viv Hamm Primary Care Provider [phone] Alberto Avendano MD Unavailable [phone] Kylee Villanueva MD Primary Care Provider [phone] Encounter Details Date Type Department Care Team (Late st Contact Info) Description 02/04/2022 MyChart Message Enc [facility] Medical Group Multispecialty Care - [facility] [address] [facility] [address] [place] [address] Shane Noble MD 1 [place] [address] SED Rate Social History Tobacco Use Types [...] Sex Assigned at Female 11/14/2024 2:54 PM TOOL SHAPER SETUP OPERATOR Legal Sex Female 11:06 AM CDT [...] (Latest Contact Info) Description 09/05/2025 1:40 PM TOOL SHAPER SETUP OPERATOR Office Visit [facility] Family & Internal Medicine [address] [address] [place] [address] [facility] [employer] [address] [place] [address] [phone] 09/13/2025 7:40 AM TOOL SHAPER SETUP OPERATOR Office Visit [facility] Family & Internal Medicine [address] [address] [place] [address] [facility] [employer] [place] [address] [phone] 09/17/2025 7:00 AM TOOL SHAPER SETUP OPERATOR Office Visit [facility] Orthopedic & Sports Medicine [facility] [address] [place] [address] Merrill Hammond MD [address] [place] [address] 10/10/2025 1:40 PM TOOL SHAPER SETUP OPERATOR Hospital Encounter [facility] Inter[facility] Management [place] [address] [phone] Elizabeth Ryder MD Three [facility] [address] [facility] [place] [address] 10/10/2025 1:40 PM TOOL SHAPER SETUP OPERATOR - 10/10/2025 2:00 PM TOOL SHAPER SETUP OPERATOR Surgery [facility] Interventional Pain Management Center ONE [place] [address] [id number] Elizabeth Ryder MD Three [facility] [address] [place] [address] INJECTION TRIGGER POINT 12/27/2025 10:40 AM TOOL SHAPER SETUP OPERATOR Office Visit [facility] Medical Group Multispecialty Care - [facility] 3 [facility] [place] [address] Esau Hoff MD 3 [facility] [address] [place] [address] Scheduled Procedures Name Priority Associated Diagnoses Date/Ti me INJECTION TRIGGER POINT Myofascial pain 10/10/2025 1:40 PM TOOL SHAPER SETUP OPERATOR documented as of this encounter Visit Diagnoses Not on filedocumented in this encounter Additional Health Concerns Infection Onset Date Last Indicated Resolved Time COVID-19 Rule Out 12/13/2023 12/13/2023 12/13/2023 8:54 AM TOOL SHAPER SETUP OPERATOR COVID-19 Rule Out 08/30/2024 08/30/2024 08/30/2024 8:14 AM TOOL SHAPER SETUP OPERATOR COVID-19 Rule Out 11/03/2024 11/03/2024 11/03/2024 10:48 AM TOOL SHAPER SETUP OPERATOR documented as of this encounter Care Teams Molding Manager Relationship Specialty [place] [address] [place] [address] PCP - General PHYSICIAN WINE MASTER 02/03/21 06/06/23 [place] [address] [address] [place] [address] PCP - General FAMILY PRACTICE 06/07/23 [place] [address] [place] [address] NEUROLOGICAL SURGERY 11/24/21 documented as of this encounter
--- OUTSIDE RECORDS SUMMARY | 2025-08-30 15:40 | XMS_ITS | Encounter Summary ---
Author Organization [facility] Address [address] [place] [address] Care Team Providers Care Change Manager Name Role Phone Alberto Avendano MD Unavailable [phone] Kylee Villanueva MD Primary Care Provider [phone] Encounter Details Date Type Department Care Team (Late st Contact Info) Description 09/11/2024 Wetradetogether Message Enc [facility] Interventional Pain Management Center [place], [place] [phone] [id number] Elizabeth Ryder MD Three [facility] [address] [place] [address] Hives Social History Tobacco Use [...] Sex Assigned at Female 11/14/2024 2:54 PM CHIEF PHARMACIST Legal Sex Female 11:06 AM CDT Gender Identity Female 05/11/2025 1:56 PM CDT Sexual Orientation Not on file documented as of this encounter Plan of Treatment Upcoming Encounters Date Type Department Care Team (Latest Contact Info) Description 09/05/2025 1:40 PM CHIEF PHARMACIST Office Visit [facility] Family & Internal Medicine [address] [phone] [place] [address] [place] [address] [phone] 09/13/2025 7:40 AM CHIEF PHARMACIST Office Visit [facility] Family & Internal [address] [address] [place] [address] [place] [address] 09/17/2025 7:00 AM CHIEF PHARMACIST Office Visit [facility] Orthopedic & Sports Medicine - [place] [address] [place] [address] Merrill Hammond MD [address] [place] [address] 10/10/2025 1:40 PM CHIEF PHARMACIST Hospital Encounter [facility] Interventional [place] [address] [id number] Elizabeth Ryder MD Three [facility] [address] [place] [address] 10/10/2025 1:40 PM CHIEF PHARMACIST - 10/10/2025 2:00 PM CHIEF PHARMACIST Surgery [facility] Interventional Pain Management Center ONE [facility] [place] [address] [id number] Elizabeth Ryder MD Three [facility] [address] [place] [address] INJECTION TRIGGER POINT 12/27/2025 10:40 AM CHIEF PHARMACIST Office Visit [facility] Medical Group Multispecialty Care - [facility] 3 [facility] [address] [place] [address] Esau Hoff MD 3 [facility] [address] [place] [address] Scheduled Procedures Name Priority Associated Diagnoses Date/Ti me INJECTION TRIGGER POINT Myofascial pain 10/10/2025 1:40 PM CHIEF PHARMACIST documented as of this encounter Visit Diagnoses Not on filedocumented in this encounter Additional Health Concerns Infection Onset Date Last Indicated Resolved Time COVID-19 Rule Out 11/03/2024 11/03/2024 11/03/2024 10:48 AM CHIEF PHARMACIST documented as of this encounter Care Teams Change Manager Relationship Specialty Start [place] [address] [facility] [place] [address] PCP - General FAMILY PRACTICE 06/07/23 Alberto Avendano MD NEUROLOGICAL SURGERY 11/24/21 documented as of this encounter
--- OUTSIDE RECORDS SUMMARY | 2025-08-30 15:40 | XMS_ITS | Encounter Summary ---
Author Organization [facility] Address [address] [place] [address] Care Team Providers Care Adoption Agent Name Role Phone Alberto Avendano MD Unavailable [phone] Kylee Villanueva MD Primary Care Provider [phone] Encounter Details Date Type Department Care Team (Late st Contact Info) Description 03/13/2024 Navitas Solutionst Message Enc [facility] Medical Group Family & Internal Medicine [address] [address] Kylee Villanueva MD [address] [place] [address]. [address] [place] [address] Abnormal EKG Social History Tobacco [...] Assigned at Female 11/14/2024 2:54 PM SUPERVISOR INCISING Legal Sex Female 11:06 AM CDT Gender Identity Female 05/11/2025 1:56 PM CDT Sexual Orientation Not on file documented as of this encounter Progress Notes * Anabell Vallecillo MA - 03/14/2024 12:12 PM CDT Advise? documented in this encounter Plan of Treatment Upcoming Encounters Date Type Department Care Team (Latest Contact Info) Description 09/05/2025 1:40 PM SUPERVISOR INCISING Office Visit [facility] Family & Internal Medicine [address] [phone] [place] [address] [facility] [place] [address] 09/13/2025 7:40 AM SUPERVISOR INCISING Office Visit [facility] Family & Internal [address] [address] [place] [address] [facility] Presbyter[facility]ram. [address] [place] [address] 09/17/2025 7:00 AM SUPERVISOR INCISING Office Visit [facility] Orthopedic & Sports Medicine [facility] [address] [place] [address] Merrill Hammond MD [address] [place] [address] 10/10/2025 1:40 PM SUPERVISOR INCISING Hospital Encounter [facility] Interventional [place] [address] [phone] Elizabeth Ryder MD Three [facility] [address] [place] [address] 10/10/2025 1:40 PM SUPERVISOR INCISING - 10/10/2025 2:00 PM SUPERVISOR INCISING Surgery [facility] Interventional [place] [address] [phone] Elizabeth Ryder MD Three [facility] [address] [place] [address] INJECTION TRIGGER POINT 12/27/2025 10:40 AM SUPERVISOR INCISING Office Visit [facility] Medical Group Multispecialty Care - [facility] 3 [facility] [address] [place] [address] Esau Hoff MD 3 [facility] [address] [place] [address] Scheduled Procedures Name Priority Associated Diagnoses Date/Ti me INJECTION TRIGGER POINT Myofascial pain 10/10/2025 1:40 PM SUPERVISOR INCISING documented as of this encounter Visit Diagnoses Not on filedocumented in this encounter Additional Health Concerns Infection Onset Date Last Indicated Resolved Time COVID-19 Rule Out 08/30/2024 08/30/2024 08/30/2024 8:14 AM SUPERVISOR INCISING COVID-19 Rule Out 11/03/2024 11/03/2024 11/03/2024 10:48 AM SUPERVISOR INCISING documented as of this encounter Care Teams Adoption Agent Relationship Specialty Start [place] [address] [address] [place] [address] PCP - General FAMILY PRACTICE 06/07/23 Alberto Avendano MD NEUROLOGICAL SURGERY 11/24/21 documented as of this encounter
--- OUTSIDE RECORDS SUMMARY | 2025-08-30 15:40 | XMS_ITS | Encounter Summary ---
Author Organization [facility] Address [address] [place] [address] Care Team Providers Care Disk Recordist Name Role Phone Alberto Avendano MD Unavailable [phone] Kylee Villanueva MD Primary Care Provider [phone] Encounter Details Date Type Department Care Team (Late st Contact Info) Description 05/15/2025 BioLeapt Message Enc [facility] Medical Group Orthopedic & Sports Medicine - [place] [address] [place] [address] Reynaldo Bunch MD [address] [place] [address] Injections Social History Tobacco Use Types Packs/Day [...] Sex Assigned at Female 11/14/2024 2:54 PM EMERGENCY MEDICINE PHYSICIAN ASSISTANT Legal Sex Female 11:06 AM CDT Gender Identity Female 05/11/2025 1:56 PM CDT Sexual Orientation Not on file documented as of this encounter Plan of Treatment Upcoming Encounters Date Type Department Care Team (Latest Contact Info) Description 09/05/2025 1:40 PM EMERGENCY MEDICINE PHYSICIAN ASSISTANT Office Visit [facility] Family & Internal Medicine [address] [phone] [place] [address] [place] [address] [phone] 09/13/2025 7:40 AM EMERGENCY MEDICINE PHYSICIAN ASSISTANT Office Visit [facility] Family & Internal [address] [phone] [place] [address] [place] [address] 09/17/2025 7:00 AM EMERGENCY MEDICINE PHYSICIAN ASSISTANT Office Visit [facility] Orthopedic & Sports Medicine [facility] [address] [place] [address] Merrill Hammond MD [address] [place] [address] 10/10/2025 1:40 PM EMERGENCY MEDICINE PHYSICIAN ASSISTANT Hospital Encounter [facility] Interventional [place] [address] [id number] Elizabeth Ryder MD Three [facility] [address] [place] [address] 10/10/2025 1:40 PM EMERGENCY MEDICINE PHYSICIAN ASSISTANT - 10/10/2025 2:00 PM EMERGENCY MEDICINE PHYSICIAN ASSISTANT Surgery [facility] Interventional [place] [address] [id number] Elizabeth Ryder MD Three [facility] [address] [place] [address] INJECTION TRIGGER POINT 12/27/2025 10:40 AM EMERGENCY MEDICINE PHYSICIAN ASSISTANT Office Visit [facility] Medical Group Multispecialty Care - [facility] 3 [facility] [address] [place] [address] Esau Hoff MD 3 [facility] [address] [place] [address] Scheduled Procedures Name Priority Associated Diagnoses Date/Ti me INJECTION TRIGGER POINT Myofascial pain 10/10/2025 1:40 PM EMERGENCY MEDICINE PHYSICIAN ASSISTANT documented as of this encounter Visit Diagnoses Not on filedocumented in this encounter Additional Health Concerns Assessment Noted Time PHQ-9 Depression Total Score: 2 12/11/19 25 1:50 PM EMERGENCY MEDICINE PHYSICIAN ASSISTANT documented as of this encounter Care Teams Disk Recordist Relationship Specialty Start [place] [address] [address] [facility] [address] [place] [address] PCP - General FAMILY PRACTICE 06/07/23 Alberto Avendano MD NEUROLOGICAL SURGERY 11/24/21 documented as of this encounter
--- OUTSIDE RECORDS SUMMARY | 2025-08-30 15:40 | XMS_ITS | Encounter Summary ---
Author Organization [facility] Address [address] [place] [address] Care Team Providers Care Heading Machine Operator Name Role Phone Alberto Avenadno MD Unavailable [phone] Kylee Villanueva MD Primary Care Provider [phone] Encounter Details Date Type Department Care Team (Late st Contact Info) Description 05/15/2024 Corvalius Message Enc [facility] Medical Group Family & Internal Medicine [facility] [address] [place] [phone] [place], [place] [phone] [place] [address] Well women exam Social History Tobacco [...] Assigned at Female 11/14/2024 2:54 PM PATIENT RELATIONS COORDINATOR Legal Sex Female 11:06 AM CDT Gender Identity Female 05/11/2025 1:56 PM CDT Sexual Orientation Not on file documented as of this encounter Plan of Treatment Upcoming Encounters Date Type Department Care Team (Latest Contact Info) Description 09/05/2025 1:40 PM PATIENT RELATIONS COORDINATOR Office Visit [facility] Family & Internal Medicine [address] [phone] [place] [address] [place] [phone] 09/13/2025 7:40 AM PATIENT RELATIONS COORDINATOR Office Visit [facility] Family & Internal Medicine [address] [phone] [place] [address] [place] [address] 09/17/2025 7:00 AM PATIENT RELATIONS COORDINATOR Office Visit [facility] Orthopedic & Sports Medicine [facility] [address] [place] [address] Merrill Hammond MD [address] [place] [address] 10/10/2025 1:40 PM PATIENT RELATIONS COORDINATOR Hospital Encounter [facility] Interventional [place] [address] [id number] Elizabeth Ryder MD Three [facility] [address] [place] [address] 10/10/2025 1:40 PM PATIENT RELATIONS COORDINATOR - 10/10/2025 2:00 PM PATIENT RELATIONS COORDINATOR Surgery [facility] Interventional [place] [address] [phone] Elizabeth Ryder MD Three [facility] [address] [place] [address] INJECTION TRIGGER POINT 12/27/2025 10:40 AM PATIENT RELATIONS COORDINATOR Office Visit [facility] Medical Group Multispecialty Care - [facility] 3 [facility] [address] [place] [address] Esau Hoff MD 3 [facility] [address] [place] [address] Scheduled Procedures Name Priority Associated Diagnoses Date/Ti me INJECTION TRIGGER POINT Myofascial pain 10/10/2025 1:40 PM PATIENT RELATIONS COORDINATOR documented as of this encounter Visit Diagnoses Not on filedocumented in this encounter Additional Health Concerns Infection Onset Date Last Indicated Resolved Time COVID-19 Rule Out 08/30/2024 08/30/2024 08/30/2024 8:14 AM PATIENT RELATIONS COORDINATOR COVID-19 Rule Out 11/03/2024 11/03/2024 11/03/2024 10:48 AM PATIENT RELATIONS COORDINATOR documented as of this encounter Care Teams Heading Machine Operator Relationship Specialty Start [place] [address] [facility] [address] [place] [address] PCP - General FAMILY PRACTICE 06/07/23 Alberto Avendano MD NEUROLOGICAL SURGERY 11/24/21 documented as of this encounter
--- OUTSIDE RECORDS SUMMARY | 2025-08-30 15:40 | XMS_ITS | Encounter Summary ---
Author Organization [facility] Address [address] [place] [address] Care Team Providers Care Hand Scudder Name Role Phone Alberto Avendano MD Unavailable [phone] Kylee Villanueva MD Primary Care Provider [phone] Encounter Details Date Type Department Care Team (Late st Contact Info) Description 05/04/2025 Partneredt Message Enc [facility] Interventional Pain Management Center [address] [place], [place] [phone] [id number] Elizabeth Ryder MD Three [facility] [address] [place] [address] Steroid Shots Social History Tobacco [...] Assigned at Female 11/14/2024 2:54 PM FOOD AND BEVERAGE DIRECTOR Legal Sex Female 11:06 AM CDT Gender Identity Female 05/11/2025 1:56 PM CDT Sexual Orientation Not on file documented as of this encounter Plan of Treatment Upcoming Encounters Date Type Department Care Team (Latest Contact Info) Description 09/05/2025 1:40 PM FOOD AND BEVERAGE DIRECTOR Office Visit [facility] Family & Internal Medicine [address] [phone] [place] [address] [address] [facility] [address] [place] [address] [phone] 09/13/2025 7:40 AM FOOD AND BEVERAGE DIRECTOR Office Visit [facility] Family & Internal Medicine [address] [phone] [place] [address] [place] [address] 09/17/2025 7:00 AM FOOD AND BEVERAGE DIRECTOR Office Visit [facility] Orthopedic & Sports Medicine [facility] [address] [place] [address] Merrill Hammond MD [address] [place] [address] 10/10/2025 1:40 PM FOOD AND BEVERAGE DIRECTOR Hospital Encounter [facility] Interventional Pain [place] [address] [id number] Elizabeth Ryder MD Three [facility] [address] [place] [address] 10/10/2025 1:40 PM FOOD AND BEVERAGE DIRECTOR - 10/10/2025 2:00 PM FOOD AND BEVERAGE DIRECTOR Surgery [facility] Interventional Pain Management Center [facility] [address] [id number] Elizabeth Ryder MD Three [facility] [address] [place] [address] INJECTION TRIGGER POINT 12/27/2025 10:40 AM FOOD AND BEVERAGE DIRECTOR Office Visit [facility] Medical Group Multispecialty Care - [facility] 3 [facility] [address] [place] [address] Esau Hoff MD 3 [facility] [address] [place] [address] Scheduled Procedures Name Priority Associated Diagnoses Date/Ti me INJECTION TRIGGER POINT Myofascial pain 10/10/2025 1:40 PM FOOD AND BEVERAGE DIRECTOR documented as of this encounter Visit Diagnoses Not on filedocumented in this encounter Additional Health Concerns Assessment Noted Time PHQ-9 Depression Total Score: 2 12/11/19 25 1:50 PM FOOD AND BEVERAGE DIRECTOR documented as of this encounter Care Teams Hand Scudder Relationship Specialty Start [place] [address] [facility] [place] [address] PCP - General FAMILY PRACTICE 06/07/23 Alberto Avendano MD NEUROLOGICAL SURGERY 11/24/21 documented as of this encounter
--- OUTSIDE RECORDS SUMMARY | 2025-08-30 15:40 | XMS_ITS | Encounter Summary ---
Author Organization [facility] Address [facility] [place] [address] Care Team Providers Care Svp Name Role Phone Viv Hamm Primary Care Provider [phone] Alberto Avendano MD Unavailable [phone] Kylee Villanueva MD Primary Care Provider [phone] Encounter Details Date Type Department Care Team (Late st Contact Info) Description 03/25/2022 MyChart Message Enc [facility] Medical Group Multispecialty Care - [facility] [address] [facility], [address] [place] [address] Shane Noble MD 1 [place] [address] Gabapentin Social History Tobacco Use Types Packs/Day [...] Sex Assigned at Female 11/14/2024 2:54 PM AUTOMOTIVE PARTS COUNTERPERSON Legal Sex Female 11:06 AM CDT Gender [...] (Latest Contact Info) Description 09/05/2025 1:40 PM AUTOMOTIVE PARTS COUNTERPERSON Office Visit [facility] Family & Internal Medicine [address] [phone] [place] [address] [facility] [address] [place] [address] 09/13/2025 7:40 AM AUTOMOTIVE PARTS COUNTERPERSON Office Visit [facility] Family & Internal Medicine [address] [phone] [place] [address] [address] [place] [address] 09/17/2025 7:00 AM AUTOMOTIVE PARTS COUNTERPERSON Office Visit [facility] Medical [facility] Orthopedic & Sports Medicine [place] [address] [place] [address] Merrill Hammond MD [address] [place] [address] 10/10/2025 1:40 PM AUTOMOTIVE PARTS COUNTERPERSON Hospital Encounter [facility] Interventional [place] [address] [id number] Elizabeth Ryder MD Three [facility] [address] [place] [address] 10/10/2025 1:40 PM AUTOMOTIVE PARTS COUNTERPERSON - 10/10/2025 2:00 PM AUTOMOTIVE PARTS COUNTERPERSON Surgery [facility] Interventional Pain [place] [address] [id number] Elizabeth Ryder MD Three [facility] [address] [place] [address] INJECTION TRIGGER POINT 12/27/2025 10:40 AM AUTOMOTIVE PARTS COUNTERPERSON Office Visit [facility] Medical Group [facility]ispecialty Care - [facility] [address] [facility] [place] [address] Esau Hoff MD [address] [facility] [address] [place] [address] Scheduled Procedures Name Priority Associated Diagnoses Date/Ti me INJECTION TRIGGER POINT Myofascial pain 10/10/2025 1:40 PM AUTOMOTIVE PARTS COUNTERPERSON documented as of this encounter Visit Diagnoses Not on filedocumented in this encounter Additional Health Concerns Infection Onset Date Last Indicated Resolved Time COVID-19 Rule Out 12/13/2023 12/13/2023 12/13/2023 8:54 AM AUTOMOTIVE PARTS COUNTERPERSON COVID-19 Rule Out 08/30/2024 08/30/2024 08/30/2024 8:14 AM AUTOMOTIVE PARTS COUNTERPERSON COVID-19 Rule Out 11/03/2024 11/03/2024 11/03/2024 10:48 AM AUTOMOTIVE PARTS COUNTERPERSON documented as of this encounter Care Teams Svp Relationship Specialty [place] [address] [place] [address] PCP - General PHYSICIAN HAZMAT TANKER DRIVER 02/03/21 06/06/23 [place] [address] [address] [address] PCP - General FAMILY PRACTICE 06/07/23 [place] [address] [place] [address] NEUROLOGICAL SURGERY 11/24/21 documented as of this encounter
--- OUTSIDE RECORDS SUMMARY | 2025-08-30 15:40 | XMS_ITS | Encounter Summary ---
Author Organization [facility] Address [facility] [place] [address] Care Team Providers Care Bead Inspector Name Role Phone Viv Hamm Primary Care Provider [phone] Alberto Avendano MD Unavailable [phone] Kylee Villanueva MD Primary Care Provider [phone] Encounter Details Date Type Department Care Team (Late st Contact Info) Description 05/31/2022 MyChart Message Enc [facility] Medical Group Family & Internal Medicine [facility] [address] [place] [address] Viv [place] [id number] [place] [address] Scan Abdomen/Pelvis WWO Contrast Social [...] Sex Assigned at Female 11/14/2024 2:54 PM SAND MIXER MACHINE Legal Sex Female 11:06 AM CDT Gender [...] (Latest Contact Info) Description 09/05/2025 1:40 PM SAND MIXER MACHINE Office Visit [facility] Family & Internal Medicine [address] [address] [place] [address] [address] [place] [address] 09/13/2025 7:40 AM SAND MIXER MACHINE Office Visit [facility] Family & Internal Medicine [address] [phone] [place] [address] [address]. [address] [place] [address] 09/17/2025 7:00 AM SAND MIXER MACHINE Office Visit [facility] Orthopedic & Sports Medicine [facility] [address] [place] [address] Merrill Hammond MD [address] [place] [address] 10/10/2025 1:40 PM SAND MIXER MACHINE Hospital Encounter [facility] Interventional [place] [address] [id number] Elizabeth Ryder MD Three [facility] [address] [place] [address] 10/10/2025 1:40 PM SAND MIXER MACHINE - 10/10/2025 2:00 PM SAND MIXER MACHINE Surgery [facility] Interventional [place] [address] [id number] Elizabeth Ryder MD Three [facility] [address] [place] [address] INJECTION TRIGGER POINT 12/27/2025 10:40 AM SAND MIXER MACHINE Office Visit [facility] Medical Group Multispecialty Care - [facility] [address] [facility] [place] [address] Esau Hoff MD [address] [facility] [address] [place] [address] Scheduled Procedures Name Priority Associated Diagnoses Date/Ti me INJECTION TRIGGER POINT Myofascial pain 10/10/2025 1:40 PM SAND MIXER MACHINE documented as of this encounter Visit Diagnoses Not on filedocumented in this encounter Additional Health Concerns Infection Onset Date Last Indicated Resolved Time COVID-19 Rule Out 12/13/2023 12/13/2023 12/13/2023 8:54 AM SAND MIXER MACHINE COVID-19 Rule Out 08/30/2024 08/30/2024 08/30/2024 8:14 AM SAND MIXER MACHINE COVID-19 Rule Out 11/03/2024 11/03/2024 11/03/2024 10:48 AM SAND MIXER MACHINE documented as of this encounter Care Teams Bead Inspector Relationship Specialty [place] [address] [place] [address] PCP - General PHYSICIAN ESL INSTRUCTIONAL ASSISTANT 02/03/21 06/06/23 [place] [address] [address] [place] [address] PCP - General FAMILY PRACTICE 06/07/23 [place] [address] [place] [address] NEUROLOGICAL SURGERY 11/24/21 documented as of this encounter
--- OUTSIDE RECORDS SUMMARY | 2025-08-30 15:40 | XMS_ITS | Encounter Summary ---
Author Organization [facility] Address [address] [place] [address] Care Team Providers Care Vp Purchasing Name Role Phone Alberto Avendano MD Unavailable [phone] Kylee Villanueva MD Primary Care Provider [phone] Encounter Details Date Type Department Care Team (Late st Contact Info) Description 05/22/2025 [employer] Message Enc [facility] Medical Group Orthopedic & Sports Medicine - [place] [address] [place] [address] [phone] Reynaldo Bunch MD [address] [place], [place] [phone] Cast Social History Tobacco Use Types Packs/Day [...] Sex Assigned at Female 11/14/2024 2:54 PM ARMAMENT AIRCRAFT MECHANIC Legal Sex Female 11:06 AM CDT Gender Identity Female 05/11/2025 1:56 PM CDT Sexual Orientation Not on file documented as of this encounter Plan of Treatment Upcoming Encounters Date Type Department Care Team (Latest Contact Info) Description 09/05/2025 1:40 PM ARMAMENT AIRCRAFT MECHANIC Office Visit [facility] Family & Internal Medicine [address] [phone] [place] [address] [place] [phone] 09/13/2025 7:40 AM ARMAMENT AIRCRAFT MECHANIC Office Visit [facility] Family & Internal [address] [phone] [place] [address] [place] [address] 09/17/2025 7:00 AM ARMAMENT AIRCRAFT MECHANIC Office Visit [facility] Orthopedic & Sports Medicine [facility] [address] [place] [address] Merrill Hammond MD [address] [place] [address] 10/10/2025 1:40 PM ARMAMENT AIRCRAFT MECHANIC Hospital Encounter [facility] Interventional Pain [place] [address] [id number] Elizabeth Ryder MD Three [facility] [address] [place] [address] 10/10/2025 1:40 PM ARMAMENT AIRCRAFT MECHANIC - 10/10/2025 2:00 PM ARMAMENT AIRCRAFT MECHANIC Surgery [facility] Interventional Pain [place] [address] [id number] Elizabeth Ryder MD Three [facility] [address] [place] [address] INJECTION TRIGGER POINT 12/27/2025 10:40 AM ARMAMENT AIRCRAFT MECHANIC Office Visit [facility] Medical Group Multispecialty Care - [facility] [address] [facility] [address] [place] [address] Esau Hoff MD 3 [facility] [address] [place] [address] Scheduled Procedures Name Priority Associated Diagnoses Date/Ti me INJECTION TRIGGER POINT Myofascial pain 10/10/2025 1:40 PM ARMAMENT AIRCRAFT MECHANIC documented as of this encounter Visit Diagnoses Not on filedocumented in this encounter Additional Health Concerns Assessment Noted Time PHQ-9 Depression Total Score: 2 12/11/19 25 1:50 PM ARMAMENT AIRCRAFT MECHANIC documented as of this encounter Care Teams Vp Purchasing Relationship Specialty Start [place] [address] [facility] [address] [place] [address] PCP - General FAMILY PRACTICE 06/07/23 Alberto Avendano MD NEUROLOGICAL SURGERY 11/24/21 documented as of this encounter
--- OUTSIDE RECORDS SUMMARY | 2025-08-30 15:40 | XMS_ITS | Encounter Summary ---
Author Organization [facility] Address [address] [place] [address] Care Team Providers Care Administrative Assistant Receptionist Name Role Phone Alberto Avendano MD Unavailable [phone] Kylee Villanueva MD Primary Care Provider [phone] Encounter Details Date Type Department Care Team (Late st Contact Info) Description 03/26/2025 [employer] Message Enc [facility] Medical Group Orthopedic & Sports Medicine - [place] [address] [place] [address] Reynaldo Bunch MD [address] [place] [address] MRI Social History Tobacco Use Types Packs/Day [...] Sex Assigned at Female 11/14/2024 2:54 PM ASSOCIATE TECHNICIAN Legal Sex Female 11:06 AM CDT Gender Identity Female 05/11/2025 1:56 PM CDT Sexual Orientation Not on file documented as of this encounter Functional Status * Calculated C-SSRS Risk Score (Lifetime/Recent) Answer Date of Assessment Author Status No Risk Indicated 03/27/2025 11:08 AM CDT India Vázquez RN Active * [place] Suicide Severity Rating Scale (Screener/Recent Self-Report) Question Answer Date of Assessment Author Status 1. Wish to be (Past 1 Month) No 03/27/2025 11:08 AM Allyson Figueroa RN A ctive 2. Non-Specific Active Suicidal Thoughts (Past 1 Month) No 03/27/2025 11:08 AM Allyson Figueroa RN A ctive 6. Suicidal Behavior (Lifetime) No 03/27/2025 11:08 AM LENORAT Allyson Vázquez RN A ctive documented as of this encounter Plan of Treatment Upcoming Encounters Date Type Department Care Team (Latest Contact Info) Description 09/05/2025 1:40 PM ASSOCIATE TECHNICIAN Office Visit [facility] Family & Internal Medicine [address] [phone] [place] [address] [facility] [address]. [address] [place] [address] 09/13/2025 7:40 AM ASSOCIATE TECHNICIAN Office Visit [facility] Family & Internal Medicine [address] [phone] [place] [address] [facility] Shannan. [address] [place] [address] 09/17/2025 7:00 AM ASSOCIATE TECHNICIAN Office Visit [facility] [address] Merrill Hammond MD [address] [place] [address] 10/10/2025 1:40 PM ASSOCIATE TECHNICIAN Hospital Encounter [facility] Interventional Pain [place] [address] [id number] Elizabeth Ryder MD Three [facility] [address] [place] [address] 10/10/2025 1:40 PM ASSOCIATE TECHNICIAN - 10/10/2025 2:00 PM ASSOCIATE TECHNICIAN Surgery [facility] Interventional Pain [place] [address] [id number] Elizabeth Ryder MD Three [facility] [address] [place] [address] INJECTION TRIGGER POINT 12/27/2025 10:40 AM ASSOCIATE TECHNICIAN Office Visit [facility] Medical Group Multispecialty Care - [facility] 3 [facility] [address] [place] [address] Esau Hoff MD 3 [facility] [address] [place] [address] Scheduled Procedures Name Priority Associated Diagnoses Date/Ti me INJECTION TRIGGER POINT Myofascial pain 10/10/2025 1:40 PM ASSOCIATE TECHNICIAN documented as of this encounter Visit Diagnoses Not on filedocumented in this encounter Additional Health Concerns Assessment Noted Time PHQ-9 Depression Total Score: 2 12/11/19 25 1:50 PM ASSOCIATE TECHNICIAN documented as of this encounter Care Teams Administrative Assistant Receptionist Relationship Specialty Start [place] [address] [address] [place] [address] PCP - General FAMILY PRACTICE 06/07/23 Alberto Avendano MD NEUROLOGICAL SURGERY 11/24/21 documented as of this encounter
--- OUTSIDE RECORDS SUMMARY | 2025-08-30 15:40 | XMS_ITS | Encounter Summary ---
Author Organization [facility] Address [address] [place] [address] Care Team Providers Care Outboard Motor Inspector Name Role Phone Alberto Avendano MD Unavailable [phone] Kylee Villanueva MD Primary Care Provider [phone] Encounter Details Date Type Department Care Team (Late st Contact Info) Description 03/01/2025 Valdermt Message Enc [facility] Medical Group Orthopedic & Sports Medicine - [place] [address] [place], [place] [address] Merrill Hammond MD [address] [place] [address] Referral Social History Tobacco Use Types Packs/Day [...] Sex Assigned at Female 11/14/2024 2:54 PM DOWNSTAIRS MAID Legal Sex Female 11:06 AM CDT Gender Identity Female 05/11/2025 1:56 PM CDT Sexual Orientation Not on file documented as of this encounter Plan of Treatment Upcoming Encounters Date Type Department Care Team (Latest Contact Info) Description 09/05/2025 1:40 PM DOWNSTAIRS MAID Office Visit [facility] Family & Internal Medicine [address] [phone] [place] [address] [place] [phone] 09/13/2025 7:40 AM DOWNSTAIRS MAID Office Visit [facility] Family & Internal Medicine [address] [phone] [place] [address] [place] [address] 09/17/2025 7:00 AM DOWNSTAIRS MAID Office Visit [facility] Orthopedic & Sports Medicine [facility] [address] [place] [address] Merrill Hammond MD [address] [place] [address] 10/10/2025 1:40 PM DOWNSTAIRS MAID Hospital Encounter [facility] Interventional [place] [address] [id number] Elizabeth Ryder MD Three [facility] [address] [place] [address] 10/10/2025 1:40 PM DOWNSTAIRS MAID - 10/10/2025 2:00 PM DOWNSTAIRS MAID Surgery [facility] Interventional [place] [address] [id number] Elizabeth Ryder MD Three [facility] [address] [place] [address] INJECTION TRIGGER POINT 12/27/2025 10:40 AM DOWNSTAIRS MAID Office Visit [facility] Medical Group Multispecialty Care - [facility] 3 [facility] [address] [place] [address] Esau Hoff MD 3 [facility] [address] [place] [address] Scheduled Procedures Name Priority Associated Diagnoses Date/Ti me INJECTION TRIGGER POINT Myofascial pain 10/10/2025 1:40 PM DOWNSTAIRS MAID documented as of this encounter Visit Diagnoses Not on filedocumented in this encounter Additional Health Concerns Assessment Noted Time PHQ-9 Depression Total Score: 2 12/11/19 25 1:50 PM DOWNSTAIRS MAID documented as of this encounter Care Teams Outboard Motor Inspector Relationship Specialty Start [place] [address] [facility] [address]. [address] [place] [address] PCP - General FAMILY PRACTICE 06/07/23 Alberto Avendano MD NEUROLOGICAL SURGERY 11/24/21 documented as of this encounter
--- OUTSIDE RECORDS SUMMARY | 2025-08-30 15:40 | XMS_ITS | Encounter Summary ---
Author Organization [facility] Address [address] [place] [address] Care Team Providers Care Manager Motor Name Role Phone Alberto Avendano MD Unavailable [phone] Kylee Villanueva MD Primary Care Provider [phone] Encounter Details Date Type Department Care Team (Late st Contact Info) Description 04/18/2025 Stiont Message Enc [facility] Medical Group Orthopedic & Sports Medicine - [place] [address] [place] [address] [phone] Reynaldo Bunch MD [address] [place], [place] 400[address] 209- MRI Results Social History Tobacco Use Types [...] Sex Assigned at Female 11/14/2024 2:54 PM FIRE PREVENTION CHIEF Legal Sex Female 11:06 AM CDT Gender Identity Female 05/11/2025 1:56 PM CDT Sexual Orientation Not on file documented as of this encounter Plan of Treatment Upcoming Encounters Date Type Department Care Team (Latest Contact Info) Description 09/05/2025 1:40 PM FIRE PREVENTION CHIEF Office Visit [facility] Family & Internal Medicine [address] [phone] [place] [address] [place] [phone] 09/13/2025 7:40 AM FIRE PREVENTION CHIEF Office Visit [facility] Family & Internal [address] [phone] [place] [address] [place] [address] 09/17/2025 7:00 AM FIRE PREVENTION CHIEF Office Visit [facility] Orthopedic & Sports Medicine [facility] [address] [place] [address] Merrill Hammond MD [address] [place] [address] 10/10/2025 1:40 PM FIRE PREVENTION CHIEF Hospital Encounter [facility] Interventional [place] [address] [id number] Elizabeth Ryder MD Three [facility] [address] [place] [address] 10/10/2025 1:40 PM FIRE PREVENTION CHIEF - 10/10/2025 2:00 PM FIRE PREVENTION CHIEF Surgery [facility] Interventional Pain [place] [address] [id number] Elizabeth Ryder MD Three [facility] [address] [place] [address] INJECTION TRIGGER POINT 12/27/2025 10:40 AM FIRE PREVENTION CHIEF Office Visit [facility] Medical Group Multispecialty Care - [facility] 3 [facility] [address] [place] [address] Esau Hoff MD 3 [facility] [address] [place] [address] Scheduled Procedures Name Priority Associated Diagnoses Date/Ti me INJECTION TRIGGER POINT Myofascial pain 10/10/2025 1:40 PM FIRE PREVENTION CHIEF documented as of this encounter Visit Diagnoses Not on filedocumented in this encounter Additional Health Concerns Assessment Noted Time PHQ-9 Depression Total Score: 2 12/11/19 25 1:50 PM FIRE PREVENTION CHIEF documented as of this encounter Care Teams Manager Motor Relationship Specialty Start [place] [address] [facility] [address] [place] [address] PCP - General FAMILY PRACTICE 06/07/23 Alberto Avendano MD NEUROLOGICAL SURGERY 11/24/21 documented as of this encounter
--- OUTSIDE RECORDS SUMMARY | 2025-08-30 15:40 | XMS_ITS | Encounter Summary ---
Author Organization [facility] Address [address] [place] [address] Care Team Providers Care Spectrographic Analyst Name Role Phone Alberto Avendano MD Unavailable [phone] Kylee Villanueva MD Primary Care Provider [phone] Encounter Details Date Type Department Care Team (Late st Contact Info) Description 08/15/2024 [employer] Message Enc [facility] Medical [facility] Family & Internal Medicine [address] [phone] Kylee Villanueva MD [address] [place] [address]. [address] [place] [address] Echocardiogram Social History Tobacco Use [...] Assigned at Female 11/14/2024 2:54 PM ASSISTANT SPA DIRECTOR Legal Sex Female 11:06 AM CDT Gender Identity Female 05/11/2025 1:56 PM CDT Sexual Orientation Not on file documented as of this encounter Functional Status * Calculated C-SSRS Risk Score (Lifetime/Recent) Answer Date of Assessment Author Status No Risk Indicated 08/18/2024 11:37 AM CDT Mackenzie Monae RN Active * [place] Suicide Severity Rating Scale (Screener/Recent Self-Report) Question Answer Date of Assessment Author Status 1. Wish to be (Past 1 Month) No 08/18/2024 11:37 AM CDT Ann Monae RN Active 2. Non-Specific Active Suicidal Thoughts (Past 1 Month) No 08/18/2024 11:37 AM LENORAT Ann Monae RN Active 6. Suicidal Behavior (Lifetime) No 08/18/2024 11:37 AM CDT Ann Monae RN Active documented as of this encounter Plan of Treatment Upcoming Encounters Date Type Department Care Team (Latest Contact Info) Description 09/05/2025 1:40 PM ASSISTANT SPA DIRECTOR Office Visit [facility] Family & Internal Medicine [address] [phone] [place] [address] [address] [place] [address] 09/13/2025 7:40 AM ASSISTANT SPA DIRECTOR Office Visit [facility] Family & Internal Medicine [address] [phone] [place] [address] [address] [place] [address] 09/17/2025 7:00 AM ASSISTANT SPA DIRECTOR Office Visit [facility] [address] [place] [address] Merrill Hammond MD [address] [place] [address] 10/10/2025 1:40 PM ASSISTANT SPA DIRECTOR Hospital Encounter [facility] Interventional [place] [address] [phone] Elizabeth Ryder MD Three [facility] [address] [place] [address] 10/10/2025 1:40 PM ASSISTANT SPA DIRECTOR - 10/10/2025 2:00 PM ASSISTANT SPA DIRECTOR Surgery [facility] Interventional Pain [place] [address] [phone] Elizabeth Ryder MD Three [facility] [address] [place] [address] INJECTION TRIGGER POINT 12/27/2025 10:40 AM ASSISTANT SPA DIRECTOR Office Visit [facility] Medical Group Multispecialty Care - [facility] [address] [facility], [address] [place] [address] Esau Hoff MD [address] [facility] [address] [place] [address] Scheduled Procedures Name Priority Associated Diagnoses Date/Ti me INJECTION TRIGGER POINT Myofascial pain 10/10/2025 1:40 PM ASSISTANT SPA DIRECTOR documented as of this encounter Visit Diagnoses Not on filedocumented in this encounter Additional Health Concerns Infection Onset Date Last Indicated Resolved Time COVID-19 Rule Out 08/30/2024 08/30/2024 08/30/2024 8:14 AM ASSISTANT SPA DIRECTOR COVID-19 Rule Out 11/03/2024 11/03/2024 11/03/2024 10:48 AM ASSISTANT SPA DIRECTOR documented as of this encounter Care Teams Spectrographic Analyst Relationship Specialty Start [place] [address] [facility]. [address] [place] [address] PCP - General FAMILY PRACTICE 06/07/23 Alberto Avendano MD NEUROLOGICAL SURGERY 11/24/21 documented as of this encounter
--- OUTSIDE RECORDS SUMMARY | 2025-08-30 15:40 | XMS_ITS | Encounter Summary ---
Author Organization [facility] Address [address] [place] [address] Care Team Providers Care Welding Manager Name Role Phone Alberto Avendano MD Unavailable [phone] Kylee Villanueva MD Primary Care Provider [phone] Encounter Details Date Type Department Care Team (Late st Contact Info) Description 08/29/2024 [employer] Message Enc [facility] Medical Group Family & Internal Medicine [facility] [id number] [place] [phone] [place], [place] [phone] [place] [address] Appt Social History Tobacco Use Types [...] Sex Assigned at Female 11/14/2024 2:54 PM ORACLE E BUSINESS DEVELOPER Legal Sex Female 11:06 AM CDT [...] things Not at all 08/30/2024 6:56 AM ORACLE E BUSINESS DEVELOPER Araceli Contreras MA Act martha Feeling down, depressed, or hopeless Not at all 08/30/2024 6:56 AM ORACLE E BUSINESS DEVELOPER Araceli Contreras MA Active Patient Health Questionnaire-2 Score 0 08/30/2024 6:56 AM ORACLE E BUSINESS DEVELOPER Araceli Contreras MA Active documented as of this encounter Plan of Treatment Upcoming Encounters Date Type Department Care Team (Latest Contact Info) Description 09/05/2025 1:40 PM ORACLE E BUSINESS DEVELOPER Office Visit [facility] Family & Internal Medicine [address] [phone] [place] [address] [place] [address] 09/13/2025 7:40 AM ORACLE E BUSINESS DEVELOPER Office Visit [facility] Family & Internal Medicine [address] [phone] [place] [address] [place] [address] 09/17/2025 7:00 AM ORACLE E BUSINESS DEVELOPER Office Visit [facility] Orthopedic & Sports Medicine [place] [address] [place] [address] Merrill Hammond MD [address] [place] [address] 10/10/2025 1:40 PM ORACLE E BUSINESS DEVELOPER Hospital Encounter [facility] Interventional Pain [place] [address] [phone] Elizabeth Ryder MD Three [facility] [address] [place] [address] 10/10/2025 1:40 PM ORACLE E BUSINESS DEVELOPER - 10/10/2025 2:00 PM ORACLE E BUSINESS DEVELOPER Surgery [facility] Interventional Pain [place] [address] [phone] Elizabeth Ryder MD Three [facility] [address] [place] [address] INJECTION TRIGGER POINT 12/27/2025 10:40 AM ORACLE E BUSINESS DEVELOPER Office Visit [facility] Multispecialty Care - [facility] [address] [facility] [address] [place] [address] Esau Hoff MD 3 [facility] [address] [place] [address] Scheduled Procedures Name Priority Associated Diagnoses Date/Ti me INJECTION TRIGGER POINT Myofascial pain 10/10/2025 1:40 PM ORACLE E BUSINESS DEVELOPER documented as of this encounter Visit Diagnoses Not on filedocumented in this encounter Additional Health Concerns Infection Onset Date Last Indicated Resolved Time COVID-19 Rule Out 08/30/2024 08/30/2024 08/30/2024 8:14 AM ORACLE E BUSINESS DEVELOPER COVID-19 Rule Out 11/03/2024 11/03/2024 11/03/2024 10:48 AM ORACLE E BUSINESS DEVELOPER documented as of this encounter Care Teams Welding Manager Relationship Specialty Start [place] [address] [address] [place] [address] PCP - General FAMILY PRACTICE 06/07/23 Alberto Avendano MD NEUROLOGICAL SURGERY 11/24/21 documented as of this encounter
== END 2025-08-29 21:51 | disposition home or self-care (01) ==
PROVIDERS: Student in an Organized Health Care Education/Training Program; Emergency Provider Student in an Organized Health Care Education/Training Program; PCP Family Medicine
DX: R07.9 Chest pain, unspecified (principal); E87.1 Hypo-osmolality and hyponatremia; I45.81 Long QT syndrome; I10 Essential (primary) hypertension
CPT/HCPCS: 36415; 71046; 80048; 80053; 83690; 84484; 85025; 85380; 85610; 85730; 93005; 96360; 96361; 99284; A9270; J7030

== ENCOUNTER 2025-09-06 15:07 | Outpatient (CLI) | payer OTHER, SELFPAY ==
--- NOTE | ~2025-09-06 | MM_ITS ---
EXAMINATION: MM screening pablo BI w edgardo HISTORY: Screening TECHNIQUE: Craniocaudal and mediolateral oblique 3-D tomosynthesis images were obtained and synthetic 2-D images were generated. CAD analysis was submitted and interpreted. COMPARISON: Comparison to multiple prior studies sequentially, with oldest reviewed study dated 01/24/2018. BREAST PARENCHYMAL COMPOSITION: Dense: The breasts are heterogeneously dense, which may obscure small masses FINDINGS: There is no evidence of suspicious mass, calcification, or architectural distortion to suggest malignancy in either breast. There has been no suspicious interval change. IMPRESSION: 1. No mammographic evidence of malignancy. 2. Recommend routine screening mammography in one year. BI-RADS Category 1: Negative Reviewed, dictated and finalized at location B. [facility]
== END 2025-09-06 15:08 | disposition home or self-care (01) ==
PROVIDERS: PCP Family Medicine; Visit Provider Physician Assistant
DX: Z12.31 Encounter for screening mammogram for malignant neoplasm of breast (principal)
CPT/HCPCS: 77063; 77067